=== PATIENT | male | born 1940 | race Caucasian/White ===

== ENCOUNTER 2019-01-17 19:01 | Emergency (ER) | payer BC, MEDICARE, SELFPAY ==
[2019-01-17 19:01] VITALS: BP 153/72; PULSE 43; RESP 16; TEMP 37.1; O2SAT 95; BMI 38.0
--- NOTE | 2019-01-17 20:06 | ED.RN ---
pegger dobby looms attempted two times to insert urinary catheter with no success. aware.
[2019-01-17 20:27] LABS: Absolute Lymphocyte Count 1.45 X10^3/ul (0.83-4.51); Absolute Neutrophil Count 2.2 X10^3/uL (2.0-7.7); Basophil# 0.03 X10^3/uL; Basophil% 0.6 % (0-1); Eosinophil# 0.06 X10^3/uL; Eosinophils% 1.2 % (0-5); Hematocrit 41.8 % (40-54); Hemoglobin 13.9 g/dl (13.0-16.5); Lymphocyte # 1.45 X10^3/ul (4.0); Lymphocyte % 30.1 % (19-41); Mean Corp Hgb Conc 33.3 g/gl (32-36); Mean Corpuscular Hgb 28.1 pg (27.0-32.0); Mean Corpuscular Volume 84.4 fL (80-94); Mean Platelet Vol. 11.2 fl (6.2-12.0); Monocyte# 1.01 X10^3/uL; Neutrophil # 2.24 X10^3/uL (2.7-7.7); Neutrophil % 46.7 % (47-70); Platelet Count 131 K/mm3 (150-450); RBC Distribution Width CV 14.8 % (11.6-14.6); RBC Distribution Width SD 45.7 fl (35.1-43.9); Red Blood Count 4.95 M/mm3 (4.6-6.2); White Blood Count 4.8 K/mm3 (4.4-11.0)
[2019-01-17 20:31] LABS: Anion Gap 7 (5-15); BUN 35 mg/dL (7-18); Calcium,Total 8.7 mg/dL (8.5-10.1); Chloride 106 mmol/L (98-107); Creatinine, Serum 1.94 mg/dL (0.70-1.30); EST Glomerular Filtration Rate 36 mL/min (>60); Est Glom Filt Rate - Afr Amer 43 mL/min (>60); Estimated Creatinine Clearance 32.88 ml/min; Glucose 82 mg/dL (74-106); POSITIVE COUNT NO; POSITIVE DIFFERENTIAL NO; POSITIVE MORPHOLOGY NO; Potassium 3.9 mmol/L (3.5-5.1); Sodium Level 141 mmol/L (136-145)
[2019-01-17 21:26] VITALS: PULSE 44; RESP 16; O2SAT 98
--- NOTE | 2019-01-17 21:33 | CON.PCM_ITS ---
Reason for Consult Date of Consultation: 01/17/19 Reason for Consultation: Unable to urinate and urinary retention ER unable to place a catheter History of Present Illness: The patient is a 78 year old male with a history of a prior TURP in the past by Dr. Larkin he said he last saw Dr. Larkin about a year ago and said he was doing fairly well but then noticed a decrease in his stream was about the call for an appointment and then today was not able to urinate. Says he could not urinate since 12:00 today came to the emergency room and the nurse attempted to place a catheter they were unsuccessful so I was called immediately to see the patient. On examination he is a very large left hydrocele penis is circumcised, meatus is wide open, I have tented a 16 Kyrgyz catheter immediately right met resistance at the bulbar urethra with a apparent stricture. I then used the [employer] urology kit advanced the first wire and the wire hit the stricture would go past advance a second wire with the coiled tip and this wire was able to get through I then advanced the wire further within the wire got hung up on the bladder neck. So I then first dilated the bulbar urethral stricture with followers over the wire then after this I used a second wire and then this wire was able to get through the bladder neck into the bladder I then dilated the bladder neck contracture with follow followers from 14 Kyrgyz up to 18 Kyrgyz and then over the wire was able to get a 16 Kyrgyz catheter in the bladder and immediately had a return of fairly bloody urine about a liter drained from the patient's bladder, I then irrigated the bladder out and irrigated all the clots out of the bladder and then set the catheter to gravity drainage. Past Medical History Allergies atenolol Adverse Reaction (Verified 01/17/19 19:03) hypotension HYPOTENSION Home Medications: Ambulatory Orders Medication Instructions Recorded Losartan Potassium [Cozaar] 50 mg PO DAILY 05/01/16 Simvastatin [Zocor] 10 mg PO QHS 05/01/16 Aspirin [Adult Low Dose Aspirin EC] 81 mg PO DAILY 06/13/16 Vit C/E/Zn/Coppr/Lutein/Zeaxan 1 each PO BID 06/13/16 [Preservision Areds 2 Softgel] Hydrochlorothiazide [Hctz] 12.5 mg PO DAILY 01/17/19 Ibuprofen/Diphenhydramine Cit 2 tab PO QHS 01/17/19 [Advil Pm Caplet] Multivit-Min/FA/Lycopen/Lutein 1 tab PO DAILY 01/17/19 [Centrum Silver Men Tablet] Surgical History: no surgical history, TURP Psychiatric History: No pertinent psych hx Lives: With Family Smoking Status: Former smoker Tobacco Use: Non-smoker Alcohol: None Drugs: None - *Family History Maternal History Items: No pertinent history Review of Systems Constitutional: Denies: Chills, Fever, Weight Change HEENT: Denies: Head Aches, Sinus Congestion, Sinus Drainage Cardiovascular: Denies: Chest Pain, Palpitations Respiratory: Denies: Cough, Shortness of breath at rest, Sputum production Gastrointestinal: Denies: Abdominal Pain, Nausea, Vomiting Genitourinary: Denies: Dysuria Musculoskeletal: Denies: Joint Pain, Joint Tenderness Skin: Denies: Rash, Wounds Neurological: Denies: Numbness, Tingling, Focal weakness Psychiatric: Denies: Anxiety, Depression, Homicidal Ideations, Suicidal Ideations Hematologic/ Lymphatic: Denies: Easy Bruising, Easy Bleeding Physical Exam - Physical Exam Vital Signs Temp 98.8 F 01/17/19 19:01 Pulse 86 01/17/19 21:26 Resp 16 01/17/19 21:26 BP 153/72 H 01/17/19 19:01 Pulse Ox 98 01/17/19 21:26 Intake & Output 01/15/19 01/16/19 01/17/19 23:59 23:59 23:59 Weight: 123.8 kg General: Alert, Oriented x3 HEENT: Atraumatic Oral: Moist Mucosa Neck: Supple Lungs: Normal air movement Cardiovascular: Regular rate Abdomen: Soft Rectal: Exam deferred Laboratory Tests Past 24 Hrs 01/17/19 01/17/19 20:08 20:08 WBC 4.8 RBC 4.95 Hgb 13.9 Hct 41.8 MCV 84.4 MCH 28.1 MCHC 33.3 RDW 14.8 H RDW Differential 45.7 H Plt Count 131 L MPV 11.2 Immature Gran % (Auto) 0.400 Neut % (Auto) 46.7 L Lymph % (Auto) 30.1 Dodge % (Auto) 21.0 H Eos % (Auto) 1.2 Baso % (Auto) 0.6 Absolute Neuts (auto) 2.2 Absolute Lymphs (auto) 1.45 Total Counted Not Reportable Sodium 141 Potassium 3.9 Chloride 106 Carbon Dioxide 28.0 Anion Gap 7 BUN 35 H Creatinine 1.94 H Estim Creat Clear Calc 32.88 Est GFR (MDRD) Af Amer 43 L Est GFR (MDRD) Non-Af 36 L BUN/Creatinine Ratio 18.0 Glucose 82 Calcium 8.7 Assessment/Plan 78-year-old male with a history of a TURP in the past, 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
--- NOTE | 2019-01-17 21:38 | ED.DCSUM_ITS ---
- ER Visit Summary Date of Service: 01/17/19 Chief Complaint: [Difficulty urinating] History of Present Illness: The patient is a 78 M [presents the emergency department complaint of difficulty urinating that started today around noon. Patient states that he has had similar problems in the past that required evaluation by urology and Mcpherson catheter placement by urology followed by a TURP. Patient has been unable to void since noon. He describes lower abdominal discomfort. Patient had did have some small amount of hematuria earlier this morning. He had some mild dysuria. He denies any back pain. Denies fever or vomiting.] Physical Examination: [HEENT-PERRLA, EOMI. Cranial nerves II through XII grossly intact. TMs clear. Mucous membranes moist. No adenopathy. Cardiovascular-regular rate and rhythm without murmur or ectopy Lungs-clear to auscultation, chest wall stable without crepitus or subcu emphysema Abdomen-normoactive bowel sounds, soft. Patient has some suprapubic tenderness on palpation. There is no rebound, rigidity, or perineal signs. Extremities-intact ?4, normal range of motion, normal pulses, atraumatic] Test Results: [CBC with differential obtained showed a white count of 4.8, hemoglobin 14, hematocrit 42, platelets 131. Chemistry sodium was 141, potassium 3.9, chloride 106, CO2 28, glucose 82, BUN 35, creatinine 1.94.] Emergency Department Course and Treatment: [Initially a bladder scan was obtained however was given erroneous readings of small volumes. We attempted to place a Mcpherson catheter unsuccessfully. Urology was consulted and Dr. Matthew resented to the emergency department to evaluate patient. Patient did have 2 strictures in eventually was able to have a Mcpherson catheter placed.] Treatment Plan: [I was asked to start patient on antibiotic and follow-up with urology as an outpatient.] Disposition: [Discharged home in stable condition] Impression: [Urinary retention] This note was generated with [employer] dictation software. It may contain incorrect words, spelling, and punctuation that were not noted in review of the chart prior to signing ED Disposition - Plan for ED Patient: Referrals: Kim Torres MD [Primary Care Provider] -
--- NOTE | 2019-01-17 21:38 | ED.DEP ---
ED Disposition - Plan for ED Patient: Instructions: ED Retention Urinary Male Prescriptions: Cephalexin [Keflex] 500 mg PO Q6 #40 cap Referrals: Kim Torres MD [Primary Care Provider] - Aramis Matthew MD [STAFF PHYSICIAN] - 5-7 Days
[2019-01-17 22:16] LABS: Bacteria 0 SEEN /hpf (None Seen); Mucous, Urine 0 SEEN /hpf (<or=2+); White Blood Cells 0 SEEN /hpf (0-5)
[2019-01-17 22:17] VITALS: BP 145/74; PULSE 42; RESP 18; O2SAT 98
[2019-01-17] MEDS: Cephalexin 250 MG Capsule 500 MG PO (22:17)
[2019-01-17 22:39] LABS: Color, Urine Red (Yellow); Glucose, Dipstick Normal (Normal); Ketone-Dipstick 5 mg/dl (Negative); Leukocyte Esterase-Dipstick Negative /ul (Negative); Nitrite-Dipstick Negative (Negative); Occult Blood-Urine 250 /ul (Negative); Protein-Dipstick 500 mg/dl (Negative); Urine Bilirubin Dipstick Negative (Negative); Urine Clarity Cloudy (Clear); Urine Urobilinogen Normal (Normal)
[2019-01-17 22:48] LABS: Red Blood Cells-Urine > 100 SEEN /hpf (0-5); Squamous Epithelial Cells - UA 0-5 SEEN /hpf (0-5)
== END 2019-01-17 22:18 | disposition home or self-care (01) ==
LOC: ED 20:17
PROVIDERS: Emergency Provider Emergency Medicine; Family Provider Internal Medicine; PCP Internal Medicine
DX: R33.9 Retention of urine, unspecified (principal); I10 Essential (primary) hypertension; Z90.79 Acquired absence of other genital organ(s)
CPT/HCPCS: 80048; 81001; 85025; 87086; 99284; A4216

== ENCOUNTER 2019-02-04 11:03 | Day surgery (SDC) | payer BC, SELFPAY ==
[2019-02-04] VITALS (8 sets, daily range): BP systolic 114–162; BP diastolic 62–87; PULSE 45–104; RESP 16–20; TEMP 36.3–37.3; O2SAT 93–97; BMI 37.0
--- NOTE | 2019-02-04 13:15 | BLB_PTH ---
PATIENT: SUSANNAH CALIXTO LOC: [facility] [place] U#:[id number] AGE/SX: 78/M ROOM: RE02/04/[address]: Dr. Aramis Matthew MD : 1940 BED: DIS: 02/04/2019 SPEC #: [id number] RECD: 02/07/19 10:38 STATUS: ADEEL MALINI #: [id number] RICHARDSON: 02/04/19 13:[address]: Aramis Matthew DEPT: SURGICAL PATHOLOGY RECD BY: Derek Galvin ENTERED: 02/07/19 11:01 SP TYPE: TURB OTHR DR: Dr. 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 Tissue from bladder, B. Bladder neck tissue MICROSCOPIC DIAGNOSIS A. 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 Negative for malignancy. See comment. B. Bladder neck tissue, TUR: Fragments of urothelial mucosa with underlying smooth muscle tissue and fragments of benign prostate tissue with chronic inflammation. Negative for malignancy. SJ:jimmy 02/08/19 COMMENT A. Black pigment is noted in the epithelium and underlying lamina propria. Iron stain with matched control was used in the evaluation of the specimen and negative for iron staining. Correlation with clinical, cystoscopic findings and appropriate follow up are necessary. Please make reference to previous specimens ([id number], [id number] and [id number]) prostate tissue, TUR with diagnosis of benign prostatic hyperplasia. MICROSCOPIC DESCRIPTION Slides are reviewed. GROSS DESCRIPTION A - Received in fixative is one container labeled with the patient's name and designated tissue from bladder. The specimen consists of multiple irregular fragments of james-brown soft tissue that in aggregate measure 2 x 1.5 x 0.3 cm. The entire specimen is submitted in one cassette. B - Received in fixative is one container labeled with the patient's name and designated bladder neck tissue. The specimen consists of multiple irregular fragments of james-brown soft tissue that in aggregate measure 2 x 1.5 x 0.3 cm. The entire specimen is submitted in one cassette. / JAZZ:jimmy 02/07/19 TC:3 CPT: 58958 x2, [id number]
[2019-02-04] MEDS: Cefazolin 2 GM in 0.9% Normal Saline 100 ML IV (13:42)
--- NOTE | 2019-02-04 14:14 | DCINST_ITS ---
Discharge Diet: Light diet - advance as tolerated Discharge Activity: No Restrictions Call your doctor if your incision/area has: Continuous Slow Oozing, Sudden Increased Bleeding, Increased Pain/ Swelling, Increased Redness, Foul Smelling Discharge, Swelling at the incision site Suture Line Care: Avoid Pulling/Pushing, Avoid Pinching/Bending Catheter: Mcpherson to leg bag, Mcpherson to large bag Drain: Douglas Allergies/Adverse Reactions: Allergies atenolol Adverse Reaction (Verified 01/28/19 09:58) hypotension HYPOTENSION Medications to take at Discharge Losartan Potassium [Cozaar] 50 mg PO DAILY 05/01/16 Simvastatin [Zocor] 10 mg PO QHS 05/01/16 Vit C/E/Zn/Coppr/Lutein/Zeaxan [Preservision Areds 2 Softgel] 1 each PO DAILY 06/13/16 Hydrochlorothiazide [Hctz] 12.5 mg PO DAILY 01/17/19 Multivit-Min/FA/Lycopen/Lutein [Centrum Silver Men Tablet] 1 tab PO DAILY 01/17/19 Primary Care Physician: Kim Torres MD [Primary Care Provider] - Test Results: Test results from this visit will be discussed in further detail at your follow- up appointment, if applicable. Please Follow Up With: Aramis Matthew MD When: please call to make an appointment.
--- NOTE | 2019-02-04 14:15 | PCM.OPRPT ---
Report of Operation Date of Procedure: 02/04/19 Pre-Operative Diagnosis: Gross hematuria and difficult Chaudhary placement Post-Operative Diagnosis: Same plus bladder mass bladder neck contracture Surgery/Procedure Performed:: Transurethral resection of a bladder mass large, transurethral resection of the bladder neck contracture Description of Surgical Findings:: Indication 78-year-old male who presented to the emergency room with gross hematuria and retention of urine at that point the ER had attempted to place a catheter was unsuccessful so I came in to use the dilator kit and dilated with appear to be a bladder neck contracture and place a catheter he now comes back to the operating room for a incision of the bladder neck and a cystoscopy. 78-year-old male taken back to the operating room at the smooth induction of anesthesia he was placed in dorsolithotomy position the penis testicle retrograde usual sterile fashion he had a very large symptomatic left hydrocele on examination, went into the bladder with a 21 Micronesian rigid cystourethroscope the entire length of the urethra was normal did not find any significant scar tissue along the urethra he did have opened up the urinary channel the scar tissue probably in the urethra had been dilated open and healed up nicely over the catheter I then got into the prostate and he did have a bladder neck contracture and I got inside the bladder and had a very unusual looking bladder with blackish darkish material throughout the bladder on the wall the watts of the bladder looked very thickened looked extremely unusual to me I was concerned about cancer so I did a deep resection and took tissue in the midline of the bladder posterior wall resected down to muscle and it actually is a little bit of fat all this tissue was then handed to the specimen as a permanent specimen for evaluation I did not do a complete resection of the bladder since the appearance of the this unusual tumor was throughout the bladder. I then went to the bladder neck and I used the loop and incised the bladder neck on the 5 o'clock position and at the 7 o'clock position widely after incising the bladder neck and the both sides widely look like a nice wide open channel I placed a 20 Micronesian catheter into the bladder irrigated out the catheter catheter was then put to gravity drainage the plan will be to see him back in about 2 weeks to remove the catheter and also review the pathology from the resection of the bladder the pathology from the resection of the bladder neck. I talked with the family regarding the findings. Type of Anesthesia:: General Drains: 20 fr chaudhary - Admit VTE Documentation VTE Present on Admission: No VTE Mechan Device Prophylaxis: SCD's
== END 2019-02-04 16:15 | disposition home or self-care (01) ==
LOC: SDC 11:04 → AC 11:09
PROVIDERS: Family Provider Internal Medicine; PCP Internal Medicine; Referring Provider Urology; Visit Provider Urology
PROC: 0T7D8ZZ Dilation of Urethra, Via Natural or Artificial Opening Endoscopic (ICD-10-PCS; CPT 52276; principal; 2019-02-04 13:00)
DX: D49.4 Neoplasm of unspecified behavior of bladder (principal); N32.0 Bladder-neck obstruction; N35.012 Post-traumatic membranous urethral stricture; R31.0 Gross hematuria; N40.1 Benign prostatic hyperplasia with lower urinary tract symptoms; R33.8 Other retention of urine; I10 Essential (primary) hypertension; I49.3 Ventricular premature depolarization; E78.00 Pure hypercholesterolemia, unspecified; E66.9 Obesity, unspecified; Z68.35 Body mass index [BMI] 35.0-35.9, adult; Z79.82 Long term (current) use of aspirin; Z87.891 Personal history of nicotine dependence
CPT/HCPCS: 00912; 52240; 52640; 88307; 88313; J7120; J2405

== ENCOUNTER 2019-02-11 17:22 | Emergency (ER) | payer BC, SELFPAY ==
[2019-02-04 11:21] VITALS: BMI 37.0
[2019-02-11 17:23] VITALS: BP 152/73; PULSE 57; RESP 16; TEMP 36.8; O2SAT 96; BMI 36.9
--- NOTE | 2019-02-11 18:33 | ED.RN ---
chaudhary drained about 100cc tean color urine with few mod/lg clots independently. drainage bag emptied. chaudhary catheter flushed. few more small clots. fluid flushed 200 fluid returned 300. flowing by gravity. to observe.
--- NOTE | 2019-02-11 19:11 | ED.RN ---
catheter draining clear yellow urine. handoff given at bedside. -giovani peters
--- NOTE | 2019-02-11 19:55 | ED.DCSUM_ITS ---
- ER Visit Summary Date of Service: 02/11/19 Chief Complaint: Mcpherson catheter not draining History of Present Illness: The patient is a 78 M who is a patient of Dr. Matthew. The patient had surgery about a week ago. He had a scope for a bladder mass, hematuria, and difficult Mcpherson placement. The mass was benign. Patient has had a Mcpherson catheter in place. He has been doing well until today. He has noted some clots and he has decreased flow of the catheter. He tried to irrigate but had no success. No other complaints. Physical Examination: Afebrile and vital signs unremarkable. Skin normal. No respiratory distress. Heart regular. Abdomen tender. Test Results: None performed Emergency Department Course and Treatment: Patient presents with acute urinary retention secondary to clots in the Mcpherson catheter. I discussed with Dr. Matthew. I was concerned that he would need replacement since his irrigation has not been successful. He advised to continue trying to flush and draw out urine. If need be, it is okay to replace the Mcpherson. Irrigation performed by nurses. The catheter is draining to gravity. All of the irrigation fluid has drained. His urine is clear. No symptoms or issues. Patient will be discharged to follow-up with his urologist. Treatment Plan: As above Disposition: Discharge Impression: 1. Acute urinary retention This note was generated with [employer] dictation software. It may contain incorrect words, spelling, and punctuation that were not noted in review of the chart prior to signing ED Disposition - Plan for ED Patient: Referrals: Kim Torres MD [Primary Care Provider] -
--- NOTE | 2019-02-11 19:56 | ED.DEP ---
ED Disposition - Plan for ED Patient: Instructions: ED Catheter Care Mcpherson Referrals: Aramis Matthew MD [STAFF PHYSICIAN] -
[2019-02-11 20:03] VITALS: BP 147/85; PULSE 64; RESP 18; O2SAT 96
== END 2019-02-11 20:03 | disposition home or self-care (01) ==
PROVIDERS: Emergency Provider Emergency Medicine; Family Provider Internal Medicine; PCP Internal Medicine
DX: T83.098A Other mechanical complication of other urinary catheter, initial encounter (principal); R33.8 Other retention of urine; I10 Essential (primary) hypertension; Z79.899 Other long term (current) drug therapy
CPT/HCPCS: 99282

== ENCOUNTER 2019-05-01 08:46 | Emergency (ER) | payer BC, SELFPAY ==
[2019-05-01 08:47] VITALS: BP 137/50; PULSE 87; RESP 18; TEMP 36.4; O2SAT 94; BMI 36.9
[2019-05-01 09:37] LABS: Bacteria 0 SEEN /hpf (None Seen); Mucous, Urine 0 SEEN /hpf (<or=2+); Squamous Epithelial Cells - UA 0 SEEN /hpf (0-5)
--- NOTE | 2019-05-01 09:47 | ED.VISSUMM ---
- ER Visit Summary Date of Service: 05/01/19 Chief Complaint: Hematuria History of Present Illness: The patient is a [address] rahel Torres. He reports that he was doing fine until 330 this morning when he began urinating blood and clots. Reports that this happened again at 5 AM and 7 AM. He states that he feels as though he is emptying his bladder sufficiently. He denies any abdominal pain or distention. He denies any preceding dysuria or frequency. No fever, chills, nausea, vomiting, or other constitutional symptoms. Patient does report that he had surgery by Dr. Matthew in January of this year to repair a bladder neck contracture and at that time he had hematuria as well. He is not anticoagulated. Physical Examination: Vitals: Stable. Afebrile. General: Well-nourished and well-developed. Head: Normocephalic atraumatic. Neck: Supple, no lymphadenopathy. No JVD. Nontender. Cardiovascular: Regular rate and rhythm. No murmurs. Respiratory: No respiratory distress. Clear to auscultation bilaterally. Abdominal: Soft, nontender, nondistended, normal bowel sounds. No guarding, rebound, or peritoneal signs. Back: Nontender. Extremities: Nontender, no edema. Skin: Normal color, no rash. Neurologic: Alert and oriented ?3. Cranial nerves II through XII are intact. Normal strength and sensation. Psych: Normal affect. Test Results: CBC showed platelets of 128 monocytes of 22. Chem-7 shows a glucose 115, BUN 44, creatinine 2.11. His creatinine was 1.94 in January. INR is 1.2. PTT is 29.1. UA has greater than 100 red and greater than 100 white blood cells. Emergency Department Course and Treatment: Patient urinated approximately 10 cc which was bright red and actually clotted in the tube. Bladder scan after this showed 600 cc of urine. Because of that a Mcpherson catheter was placed. This was irrigated and he now has pink-tinged urine. Treatment Plan: He will be discharged on Keflex and instructed to follow-up with Dr. Matthew in 3 days for another exam. He does understand that if his catheter stops draining that he needs to return to the emergency department for admission for irrigation. Disposition: To home in improved and stable condition. Impression: 1. Hematuria. This note was generated with [employer] dictation software. It may contain incorrect words, spelling, and punctuation that were not noted in review of the chart prior to signing ED Disposition - Plan for ED Patient: Instructions: Hematuria Prescriptions: Cephalexin [Keflex] 500 mg PO Q12 #14 cap Prescription Printed Referrals: Aramis Matthew MD [STAFF PHYSICIAN] - 3-5 Days
[2019-05-01 10:04] LABS: Absolute Lymphocyte Count 1.43 X10^3/uL (0.83-4.51); Absolute Neutrophil Count 2.4 X10^3/uL (2.0-7.7); Basophil# 0.03 X10^3/uL; Basophil% 0.6 % (0-1); Eosinophil# 0.01 X10^3/uL; Eosinophils% 0.2 % (0-5); Hematocrit 42.4 % (40-54); Hemoglobin 13.9 g/dL (13.0-16.5); Lymphocyte # 1.43 X10^3/ul (4.0); Lymphocyte % 28.8 % (19-41); Mean Corp Hgb Conc 32.8 g/dL (32-36); Mean Corpuscular Volume 85.5 fL (80-94); Mean Platelet Vol. 10.3 fl (6.2-12.0); Monocyte# 1.08 X10^3/uL; Monocyte% 21.7 % (0-10); NRBC Flagged by Analyzer 0 % (0-5); Neutrophil # 2.38 X10^3/uL (2.7-7.7); Neutrophil % 47.9 % (47-70); Platelet Count 128 K/mm3 (150-450); RBC Distribution Width CV 14.3 % (11.6-14.6); RBC Distribution Width SD 44.6 fl (35.1-43.9); Red Blood Count 4.96 M/mm3 (4.6-6.2)
[2019-05-01] MEDS: 0.9% Normal Saline 1,000 ML 1000 ML IV (10:05)
[2019-05-01] MEDS: Lidocaine Jelly 2% 20 ML Syringe (URO-JET) 20 APPLIC TOPICAL (10:10)
[2019-05-01 10:14] LABS: Red Blood Cells-Urine > 100 SEEN /hpf (0-5)
[2019-05-01 10:14] LABS: Anion Gap 4 (5-15); BUN 44 mg/dL (7-18); BUN/Creat Ratio 20.9 RATIO (10-20); Chloride 107 mmol/L (98-107); Creatinine, Serum 2.11 mg/dL (0.70-1.30); EST Glomerular Filtration Rate 32 mL/min (>60); Est Glom Filt Rate - Afr Amer 39 mL/min (>60); Estimated Creatinine Clearance 30.23 ml/min; Glucose 115 mg/dL (74-106); Sodium Level 137 mmol/L (136-145)
[2019-05-01 10:15] LABS: White Blood Cells >100 SEEN /hpf (0-5)
[2019-05-01 10:16] VITALS: BP 133/82; PULSE 69; RESP 16
[2019-05-01 10:16] LABS: International Normalized Ratio 1.2; Partial Thromboplast Time 29.1 Seconds (24.1-36.2); Prothrombin Time (Protime)PT. 14.6 SECONDS (11.7-14.9)
[2019-05-01 10:24] LABS: Color, Urine Red (Yellow); Glucose, Dipstick Normal (Normal); Ketone-Dipstick 5 mg/dl (Negative); Leukocyte Esterase-Dipstick Negative /ul (Negative); Nitrite-Dipstick Negative (Negative); Occult Blood-Urine 250 /ul (Negative); Protein-Dipstick 500 mg/dl (Negative); Urine Bilirubin Dipstick Negative (Negative); Urine Clarity Turbid (Clear); Urine Urobilinogen Normal (Normal)
[2019-05-01 11:07] VITALS: BP 141/85; PULSE 70; RESP 15
[2019-05-01] MEDS: Ceftriaxone 1 GM/50 ML BAG IV (11:07)
[2019-05-01 12:45] VITALS: BP 152/67; PULSE 70; RESP 15
== END 2019-05-01 12:46 | disposition home or self-care (01) ==
LOC: ED 09:26
PROVIDERS: Emergency Provider Emergency Medicine; Family Provider Internal Medicine; PCP Internal Medicine
DX: R31.9 Hematuria, unspecified (principal); I10 Essential (primary) hypertension; Z79.82 Long term (current) use of aspirin; Z79.899 Other long term (current) drug therapy
CPT/HCPCS: 51702; 80048; 81001; 85025; 85610; 85730; 96361; 96365; 99284; J7030; A4216

== ENCOUNTER 2019-05-06 10:26 | Day surgery (SDC) | payer BC, SELFPAY ==
[2019-05-06 11:31] VITALS: BP 133/67; PULSE 56; RESP 16; TEMP 36.3; O2SAT 97; BMI 36.1
[2019-05-06] MEDS: Cefazolin 2 GM in 0.9% Normal Saline 100 ML IV (13:33)
--- NOTE | 2019-05-06 13:37 | DCINST_ITS ---
Discharge Diet: Light diet - advance as tolerated Discharge Activity: Return to Normal Activity Call your doctor if your incision/area has: Sudden Increased Bleeding Call your doctor if you observe: Inability to urinate Allergies/Adverse Reactions: Allergies atenolol Adverse Reaction (Verified 05/01/19 08:46) hypotension HYPOTENSION Medications to take at Discharge Losartan Potassium [Cozaar] 50 mg PO DAILY 05/01/16 Simvastatin [Zocor] 10 mg PO QHS 05/01/16 Vit C/E/Zn/Coppr/Lutein/Zeaxan [Preservision Areds 2 Softgel] 1 each PO BID 06/13/16 Hydrochlorothiazide [Hctz] 12.5 mg PO DAILY 01/17/19 Multivit-Min/FA/Lycopen/Lutein [Centrum Silver Men Tablet] 1 tab PO DAILY 01/17/19 Aspirin [Aspirin, Baby] 81 mg PO DAILY@0800 05/01/19 Cephalexin [Keflex] 500 mg PO Q12 #14 cap 05/01/19 Ciprofloxacin [Cipro] 500 mg PO BID #6 tab 05/06/19 The following prescriptions were given: Ciprofloxacin [Cipro] 500 mg PO BID #6 tab Prescription Printed Primary Care Physician: Kim Torres MD [Primary Care Provider] - Test Results: Test results from this visit will be discussed in further detail at your follow- up appointment, if applicable. Please Follow Up With: Aramis Matthew MD When: in 2 weeks, please call to make an appointment.
[2019-05-06] MEDS: Lidocaine Jelly 2% 20 ML Syringe (URO-JET) 20 APPLIC (13:50)
--- NOTE | 2019-05-06 13:52 | PCM.OPRPT ---
Report of Operation Date of Procedure: 05/06/19 Pre-Operative Diagnosis: Gross hematuria history of bladder neck contracture Post-Operative Diagnosis: The same no active bleeding Surgery/Procedure Performed:: Diagnostic cystoscopy and removal of Mcpherson catheter Description of Surgical Findings:: 78-year-old male with a history of bladder contracture I saw the patient in the office with a recent catheter was placed for retention of urine and gross hematuria today we took the patient to the operating room for an evaluation of the source of the hematuria and evaluation of the prostate and bladder. Patient was taken back to the operating room after smooth induction of anesthesia he was placed in dorsolithotomy position the penis and testicles are prepped and draped in usual fashion, he had an uncircumcised normal penis went into the bladder with a 21 Kinyarwanda rigid cystourethroscope entire length urethra is normal the pendulous urethra normal bulbar urethra is normal sphincter was intact prostate channel was wide open could see the bladder neck but is also wide open right into the bladder identified the verumontanum identified the prosthetic tissue nice open channel the left and right ureter orifice were opened the trigone was normal inside the bladder some bullous edema from with a catheter was but no source of bleeding no tumors or stones seen within the bladder everything was clear no active bleeding therefore it is drained the bladder took out the scope and will leave him without a catheter if he will urinate okay to go home with out a catheter. Type of Anesthesia:: General Drains: none - Admit VTE Documentation VTE Present on Admission: No VTE Mechan Device Prophylaxis: SCD's
[2019-05-06 13:59] VITALS: BP 108/77; BP 133/67; PULSE 76; RESP 18; TEMP 36.3; O2SAT 94
[2019-05-06 14:05] VITALS: BP 112/77; BP 133/67; PULSE 72; RESP 16; O2SAT 95
[2019-05-06 14:10] VITALS: BP 124/76; BP 133/67; PULSE 68; RESP 16; O2SAT 94
[2019-05-06 14:19] VITALS: BP 120/72; BP 133/67; PULSE 67; RESP 16; TEMP 36.5; O2SAT 94
[2019-05-06 15:59] VITALS: BP 133/67
== END 2019-05-06 16:01 | disposition home or self-care (01) ==
LOC: SDC 10:27 → AC 10:31
PROVIDERS: Family Provider Internal Medicine; PCP Internal Medicine; Referring Provider Urology; Visit Provider Urology
PROC: 0TBB8ZX Excision of Bladder, Via Natural or Artificial Opening Endoscopic, Diagnostic (ICD-10-PCS; CPT 52000; principal; 2019-05-06 11:55)
DX: R31.0 Gross hematuria (principal); N32.0 Bladder-neck obstruction; N40.0 Benign prostatic hyperplasia without lower urinary tract symptoms; E78.00 Pure hypercholesterolemia, unspecified; I10 Essential (primary) hypertension; I49.3 Ventricular premature depolarization; E66.9 Obesity, unspecified; Z68.41 Body mass index [BMI] 40.0-44.9, adult; Z79.82 Long term (current) use of aspirin; Z79.899 Other long term (current) drug therapy; Z87.891 Personal history of nicotine dependence
CPT/HCPCS: 52000; J7120

== ENCOUNTER → 2019-05-12 16:05 | Outpatient (CLI) | payer BC, SELFPAY ==
[2019-05-06 11:31] VITALS: BMI 36.1
== END ==
PROVIDERS: Family Provider Internal Medicine; PCP Internal Medicine; Referring Provider Nurse Practitioner Adult Health; Visit Provider Nurse Practitioner Adult Health
DX: N39.0 Urinary tract infection, site not specified (principal)
CPT/HCPCS: 87086

== ENCOUNTER 2019-11-22 15:26 | Emergency (ER) | payer OTHER, BC, SELFPAY ==
[2019-11-22 15:27] VITALS: BP 142/75; PULSE 49; RESP 18; TEMP 37.1; O2SAT 99; BMI 36.9
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
[2019-11-22] MEDS: Diphth,Pertuss(Acell),Tet Vac 0.5 ML Vial IM (15:40)
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
[2019-11-22 16:52] VITALS: BP 155/90; PULSE 60; RESP 16; O2SAT 97
== END 2019-11-22 17:02 | disposition home or self-care (01) ==
LOC: ED 16:22
PROVIDERS: Emergency Provider Emergency Medicine; PCP Internal Medicine
DX: S20.219A Contusion of unspecified front wall of thorax, initial encounter (principal); S60.511A Abrasion of right hand, initial encounter; V89.2XXA Person injured in unspecified motor-vehicle accident, traffic, initial encounter; Y93.89 Activity, other specified; I25.10 Atherosclerotic heart disease of native coronary artery without angina pectoris; Z79.82 Long term (current) use of aspirin; Z87.891 Personal history of nicotine dependence
CPT/HCPCS: 71111; 73130; 90471; 90715; 99282

== ENCOUNTER 2019-12-11 15:50 | Observation (INO) | payer BC, SELFPAY ==
[2019-12-06 17:37] VITALS: BMI 36.9
[2019-12-11] VITALS (8 sets, daily range): BP systolic 142–165; BP diastolic 69–95; PULSE 45–79; RESP 15–18; TEMP 36.7–37.1; O2SAT 13–98; BMI 37.8; BMI 36.8
[2019-12-11 16:24] LABS: Absolute Lymphocyte Count 1.62 X10^3/uL (0.83-4.51); Absolute Neutrophil Count 2.9 X10^3/uL (2.0-7.7); Basophil# 0.04 X10^3/uL; Basophil% 0.7 % (0-1); Eosinophil# 0.03 X10^3/uL; Eosinophils% 0.5 % (0-5); Hematocrit 44.2 % (40-54); Hemoglobin 14.1 g/dL (13.0-16.5); Lymphocyte # 1.62 X10^3/ul (4.0); Mean Corp Hgb Conc 31.9 g/dL (32-36); Mean Corpuscular Hgb 27.8 pg (27.0-32.0); Mean Corpuscular Volume 87.2 fL (80-94); Mean Platelet Vol. 11.8 fl (6.2-12.0); Monocyte# 1.36 X10^3/uL; Monocyte% 22.6 % (0-10); NRBC Flagged by Analyzer 0 % (0-5); Neutrophil # 2.93 X10^3/uL (2.7-7.7); Neutrophil % 48.7 % (47-70); Platelet Count 111 K/mm3 (150-450); RBC Distribution Width CV 14.4 % (11.6-14.6); RBC Distribution Width SD 45.7 fl (35.1-43.9); Red Blood Count 5.07 M/mm3 (4.6-6.2)
[2019-12-11] MEDS: 0.9% Normal Saline 1,000 ML 1000 ML IV (16:27)
[2019-12-11 16:37] LABS: Anion Gap 6 (5-15); BUN 39 mg/dL (7-18); Calcium,Total 9.1 mg/dL (8.5-10.1); Chloride 106 mmol/L (98-107); EST Glomerular Filtration Rate 29 mL/min (>60); Est Glom Filt Rate - Afr Amer 35 mL/min (>60); Estimated Creatinine Clearance 27.28 ml/min; Glucose 118 mg/dL (74-106); Potassium 4.2 mmol/L (3.5-5.1); Sodium Level 141 mmol/L (136-145)
[2019-12-11] MEDS: Lidocaine Jelly 2% 20 ML Syringe (URO-JET) 20 APPLIC TOPICAL (18:45)
--- NOTE | 2019-12-11 18:57 | EKG12_ITS ---
Test Reason : DYSRHYTHMIA Blood Pressure : / mmHG Vent. Rate : 073 BPM Atrial Rate : 073 BPM P-R Int : 208 ms QRS Dur : 090 ms QT Int : 388 ms P-R-T Axes : 047 -48 042 degrees QTc Int : 427 ms Sinus rhythm with frequent Premature ventricular complexes Left axis deviation Septal infarct , age undetermined Inferior infarct , age undetermined Abnormal ECG Confirmed by AMY CARR MD ([id number]), dictionary editor REGINALDO ERNST ([id number]) on 12/12/2019 10:21:01 AM Referred By: ISABEL Confirmed By:AMY CARR MD
[2019-12-11 19:04] LABS: Bacteria 0 SEEN /hpf (None Seen); Mucous, Urine 0 SEEN /hpf (<or=2+); Squamous Epithelial Cells - UA 0 SEEN /hpf (0-5)
[2019-12-11 19:06] LABS: Color, Urine Red (Yellow); Glucose, Dipstick Normal (Normal); Nitrite-Dipstick Negative (Negative); Occult Blood-Urine 250 /ul (Negative); Protein-Dipstick 100 mg/dl (Negative); Urine Bilirubin Dipstick Negative (Negative); Urine Clarity Turbid (Clear); Urine Urobilinogen Normal (Normal)
[2019-12-11 19:17] LABS: Ketone-Dipstick Negative (Negative); Leukocyte Esterase-Dipstick 25 /ul (Negative)
[2019-12-11 19:33] LABS: White Blood Cells 10-25 SEEN /hpf (0-5)
[2019-12-11 19:36] LABS: Red Blood Cells-Urine > 100 SEEN /hpf (0-5)
[2019-12-11 19:58] LABS: Thyroid Stim Hormone (TSH) 0.99 uIU/mL (0.358-3.74)
[2019-12-11 20:00] LABS: International Normalized Ratio 1.1; Prothrombin Time (Protime)PT. 14.2 SECONDS (11.7-14.9)
[2019-12-11 20:01] LABS: Partial Thromboplast Time 28.6 Seconds (24.1-36.2)
--- NOTE | 2019-12-11 20:57 | CT_ITS ---
STUDY: CT ABDOMEN AND PELVIS WITHOUT CONTRAST REASON FOR EXAM: Male, 79 years old. BRIGHT RED BLEEDING AND CLOTS FROM URINE WITH LOWER ABD DISCOMFORT RADIATION DOSAGE (If Supplied By Facility): CTDIvol = ( 17.23 ) mGy, DLP = ( 1490.81 ) mGycm TECHNIQUE: Transaxial images were obtained from the dome of the diaphragm to the symphysis pubis without oral contrast, and without intravenous contrast. Sagittal and coronal images were reconstructed. Individualized dose optimization techniques were used for this CT. COMPARISON: None. FINDINGS: The visualized lung bases are unremarkable. The visualized portions of the heart are within normal limits. Normal liver. Normal gallbladder and extrahepatic biliary system. Normal spleen. Normal pancreas. Normal bilateral adrenal glands. 4 mm left ureterovesicular junction stone with mild obstructive uropathy. Significant left renal atrophy. Cannot exclude a left interpolar solid lesion. Prominent right extrarenal pelvis. Normal visualized stomach. No evidence for bowel obstruction or focal bowel wall thickening. Scattered mild diverticular disease. There is a very large left inguinal hernia extending into the left scrotum containing multiple loops of bowel and mesentery. The appendix is visualized and appears normal. Normal abdominal aorta. Normal inferior vena cava. Normal retroperitoneum. Decompressed urinary bladder with Mcpherson catheter in place. Normal visualized prostate gland. There are diffuse degenerative changes of the visualized lumbar spine. CT/Abdomen/Pelvis without Cont IMPRESSION: 4 mm left ureterovesicular junction calculus and mild associated obstructive uropathy. Heterogeneous appearance of an atrophic left kidney. Cannot exclude renal mass. Recommend follow-up renal ultrasound and/or dedicated renal mass protocol cross-sectional imaging. 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 Electronically Signed: Octavio Vidal, at 22:46 EST Tel , Service support ,
--- NOTE | 2019-12-11 22:32 | HP.PCM_ITS ---
History of Present Illness Date of Admission: 12/11/19 Chief Complaint: hematuria The patient is a 79 year old M with a past medical history as outlined which includes BPH status post TURP. He was admitted through the ED on 12/11/2019 with a complaint of hematuria. Symptoms started around 11 AM on day of admission. There was initially passage of a large clot and subsequently started having profuse hematuria. He has had this in the past before witnesses states that his prostate surgery. He denied any lightheadedness or dizziness, palpitations, chest pain, nausea vomiting or diarrhea. Systems otherwise negative. He is not on any anticoagulant and is only on low-dose aspirin. In the ED, blood pressure was 161/95 with temperature of 98.7, pulse rate of 72 respiratory of 16. He was saturating at 93% on room air. Chemistry showed sodium of 141 potassium of 4.2 and creatinine of 2.3. CBC showed hemoglobin of 14.1 and WBC of 6. He was having some PVCs. Telemetry on admission so initial troponin was ordered which was negative and EKG showed normal sinus rhythm with some PVCs. He has been adm itted to be managed for hematuria. [] Past Medical History Medical History: Medical History (Last Reviewed 12/06/19 @ 17:17 by Sruthi Renner) Chest pain R07.9 Knee pain M25.569 HTN (hypertension) I10 Allergies atenolol Adverse Reaction (Verified 12/11/19 15:51) hypotension HYPOTENSION Home Medications: Ambulatory Orders Medication Instructions Recorded Losartan Potassium [Cozaar] 50 mg PO DAILY 05/01/16 Simvastatin [Zocor] 10 mg PO QHS 05/01/16 Hydrochlorothiazide [Hctz] 12.5 mg PO DAILY 01/17/19 Aspirin [Aspirin, Baby] 81 mg PO DAILY@0800 05/01/19 Multivitamin [Daily Value] 1 ea PO DAILY 12/11/19 Vit C/E/Zn/Coppr/Lutein/Zeaxan 1 ea PO BID 12/11/19 [Preservision Areds 2 Softgel] Surgical History: TURP Psychiatric History: No pertinent psych hx Lives: Spouse/ Significant Other Smoking Status: Former smoker Tobacco Use: Non-smoker Alcohol: Occasional Drugs: None - *Family History Maternal History Items: No pertinent history Review of Systems Constitutional: Denies: Chills, Fever, Malaise, Weakness, Weight Change Eyes: Denies: Blurred vision HEENT: Denies: Head Aches, Sinus Congestion, Sinus Drainage Cardiovascular: Denies: Chest Pain, Chest Pressure, Chest Tightness, Orthopnea, Palpitations Respiratory: Denies: Cough, Shortness of Breath, Shortness of breath at rest, Shortness of breath upon exertion, Sputum production Gastrointestinal: Denies: Abdominal Pain, Nausea, Vomiting Genitourinary: Reports: Hematuria. Denies: Dysuria, Frequency, Nocturia, Retention, Urgency Musculoskeletal: Denies: Joint Pain, Joint Tenderness Skin: Denies: Rash, Wounds Neurological: Denies: Numbness, Tingling, Focal weakness Psychiatric: Denies: Anxiety, Depression, Homicidal Ideations, Suicidal Ideations Hematologic/ Lymphatic: Denies: Easy Bruising, Easy Bleeding VTE Information - Inpt Only VTE Present on Admission: No VTE Pharm Prophylaxis ordered?: Yes - Physical Exam Vitals/I&O's: Vital Signs Temp Pulse Resp BP Pulse Ox 98.7 F 72 16 161/95 H 93 12/11/19 16:30 12/11/19 22:25 12/11/19 22:25 12/11/19 22:25 12/11/19 22:25 Oxygen Delivery Method Room Air Weight: 271 lb 2.697 oz Body Mass Index (BMI) 37.8 Intake and Output for Last 24 Hours 12/09/19 12/10/19 12/11/19 23:59 23:59 23:59 Intake Total 1000 / 1000 Balance 1000 / 1000 General: Alert, Oriented x3, Cooperative, No apparent distress HEENT: Atraumatic, PERRLA, EOMI, Normocephalic Oral: Moist Mucosa Neck: Supple, No JVD, Negative Carotid Bruits Lungs: Clear to auscultation, Normal air movement, No rhonchi, No wheeze, No rales Cardiovascular: Regular rate, Regular Rhythm, Normal S1, Normal S2, No murmurs Abdomen: Bowel Sounds Present, Soft, Non Tender Extremities: No clubbing, No cyanosis, No edema, Capillary Refill Less than 3 Seconds Skin: No rashes, No breakdown Musculoskeletal: No Tenderness to Palpation of Joints or Extremities Lymphatic: No Cervical, Supraclavicular, or Inguinal Adenopathy Neurological: Cranial nerves II-XII grossly intact, Neuro grossly intact, Motor Exam 5/5 strength throughout Psych/Mental Status: Normal Affect, Appropriate, Alert and oriented to time, place, person, mood and affect Laboratory Results 12/11/19 16:10: WBC 6.0, RBC 5.07, Hgb 14.1, Hct 44.2, MCV 87.2, MCH 27.8, MCHC 31.9 L, RDW Std Deviation 45.7 H, RDW Coeff of Jeff 14.4, Plt Count 111 L, MPV 11.8, Immature Gran % (Auto) 0.500, Neut % (Auto) 48.7, Lymph % (Auto) 27.0, Gentry % (Auto) 22.6 H, Eos % (Auto) 0.5, Baso % (Auto) 0.7, Absolute Neuts (auto) 2.9, Absolute Lymphs (auto) 1.62, Nucleated RBC % 0 12/11/19 16:10: Sodium 141, Potassium 4.2, Chloride 106, Carbon Dioxide 29.0, Anion Gap 6, BUN 39 H, Creatinine 2.30 H, Estim Creat Clear Calc 27.28, Est GFR (MDRD) Af Amer 35 L, Est GFR (MDRD) Non-Af 29 L, BUN/Creatinine Ratio 17.0, Glucose 118 H, Calcium 9.1 12/11/19 16:10: Troponin I < 0.015, TSH 0.99 12/11/19 18:48: Urine Color Red, Urine Clarity Turbid, Urine pH 7.0, Ur Specific [place] 1.010, Urine Protein 100 H, Urine Glucose (UA) Normal, Urine Ketones Negative, Urine Occult Blood 250 H, Urine Nitrite Negative, Urine Bilirubin Negative, Urine Urobilinogen Normal, Ur Leukocyte Esterase 25 H, Urine RBC > 100 SEEN, Urine WBC 10-25 SEEN, Ur Squamous Epith Cells 0 SEEN, Urine Bacteria 0 SEEN, Urine Mucus 0 SEEN 12/11/19 19:35: PT 14.2, INR 1.1, APTT 28.6 Diagnostic Data Abdomen/Pelvis CT 12/11/19 20:57 IMPRESSION: 4 mm left ureterovesicular junction calculus and mild associated obstructive uropathy. Heterogeneous appearance of an atrophic left kidney. Cannot exclude renal mass. Recommend follow-up renal ultrasound and/or dedicated renal mass protocol cross-sectional imaging. 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 Electronically Signed: Octavio Marcy, at 22:46 EST Tel , Service support , Assessment/Plan All Active Problems (Last Reviewed 12/06/19 @ 17:17 by Sruthi Renner) Abrasion of right hand, initial encounter (Acute) Contusion of unspecified front wall of thorax, initial encounter (Acute) 79 y/o admitted with a complaint of hematuria 1. Hematuria * does have a history of hematuria, thought to be due to BPH. had TURP in 2016, and had cystoscopy in 05/06/19 o/a of hematuria, with findings of bladder neck contracture * urine clearing up now; had slightly blood tinged urine in bag, with clear urine in catheter. * Hb is 14 * CT abdomen/pelvis: 4mm left ureterovesical junction calculus and mild associated obstructive uropathy; heterogenous appearance of atrophic left kidney; cannot exclude renal mass. recommend follow up renal USG * renal USG from 05/02/16: simple bilateral renal cysts and debris in the urinary bladder diverticulum; left kidney had 2 renal cysts and right kidney had one renal cyst. * admit to [facility] * hydrate with IVF NS ~ 125cc/hr. Continue with continuous bladder irrigation * urology consulted- Dr Velazco will see patient on behalf of Dr Matthew. * hold aspirin * will get renal USG in light of CT abdomen/pelvis findings as above * 2. Premature ventricular complexes * Was having PVCs at time of admission. EKG done showed normal sinus rhythm with no acute ST changes and PVCs. * Initial troponin is negative. We will cycle. TSH was 0.99. Potassium is 4.2. Will check magnesium. * 3. CKD stage IV: Creatinine is 2.3 with a baseline of around 2.1. Will monitor. 4. Hypertension: Blood pressure is 161/95. On losartan and hydrochlorothiazide. Will hold HCTZ for now. 5. Hyperlipidemia: On statin DVT prophylaxis: SCDs CODE STATUS: DNR CCA * Patient and counseled extensively about different types of CODE STATUS including full code, DNR CCA and DNR CCA. Patient elects to be DNRCCA- no intubation. Total [id number] time 16 minutes. Code Visit OBSV E&M: 30171 Initial observation care L2 Procedures: 07278 Advncd Care Plan 30 Min
--- NOTE | 2019-12-11 22:59 | ED.DCSUM_ITS ---
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 He reports that this morning he passed a clot in his urine. This afternoon he states that his urine has been much more bloody and he is unsure if he is emptying his bladder. He denies any back pain. No fever, chills, dull pain, nausea, or vomiting. He reports he has had this multiple times in the past. He is not anticoagulated. Physical Examination: Vitals: Stable. Afebrile. General: Well-nourished and well-developed. Head: Normocephalic atraumatic. Neck: Supple, no lymphadenopathy. No JVD. Nontender. Cardiovascular: Regular rate and rhythm. 2 out of 6 systolic murmur. Respiratory: No respiratory distress. Clear to auscultation bilaterally. Abdominal: Soft, nontender, nondistended, normal bowel sounds. No guarding, rebound, or peritoneal signs. Back: Nontender. Extremities: Nontender, no edema. Skin: Normal color, no rash. Neurologic: Alert and oriented ?3. Cranial nerves II through XII are intact. Normal strength and sensation. Psych: Normal affect. Test Results: EKG is sinus at [address]pecific [address] changes. Troponin is negative. UA shows greater than 100 reds and 10-25 white blood cells with no bacteria. Coags are normal. TSH is 0.99. 7 shows a glucose 118, BUN of 39, creatinine 2.3. CBC shows monocytes of 23. Clinical Impression(s) from Imaging Studies Abdomen/Pelvis CT 12/11/19 20:57 IMPRESSION: 4 mm left ureterovesicular junction calculus and mild associated obstructive uropathy. Heterogeneous appearance of an atrophic left kidney. Cannot exclude renal mass. Recommend follow-up renal ultrasound and/or dedicated renal mass protocol cross-sectional imaging. 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 Electronically Signed: Octavio Vidal, at 22:46 EST Tel , Service support , Emergency Department Course and Treatment: Patient had a 24 Lao Mcpherson placed. Initially this was irrigated manually and was draining. It then clotted off and continuous irrigation was started. Intermittently the patient reports that he feels as though it is not draining and has to be manually irrigated to remove clots. Treatment Plan: The patient was discussed with Dr. Matthew. Unfortunately he will be having surgery tomorrow and cannot see the patient. He was then discussed with Dr. Velazco who has agreed to manage the hematuria. He was also discussed with Dr. Skinner. He will be admitted for further evaluation and treatment. Disposition: Improved condition. Impression: 1. Hematuria. 2. Left ureterolithiasis. This note was generated with [employer] software. It may contain incorrect words, spelling, and punctuation that were not noted in review of the chart prior to signing
[2019-12-12] VITALS (11 sets, daily range): BP systolic 129–162; BP diastolic 59–84; PULSE 60–81; RESP 16–18; TEMP 36.3–36.7; O2SAT 95
[2019-12-12 00:05] LABS: Magnesium 2.3 mg/dL (1.6-2.6)
[2019-12-12] MEDS: Atorvastatin Calcium 10 MG Tablet 5 MG PO ×2 (01:06→21:03)
[2019-12-12] MEDS: 0.9% Saline Lock 10 ML Syringe IV (01:07)
[2019-12-12] MEDS: 0.9% Normal Saline 1,000 ML 150 ML IV ×2 (01:07→06:03)
[2019-12-12 06:19] LABS: Absolute Lymphocyte Count 0.95 X10^3/uL (0.83-4.51); Absolute Neutrophil Count 2.4 X10^3/uL (2.0-7.7); Basophil# 0.03 X10^3/uL; Basophil% 0.7 % (0-1); Eosinophil# 0.02 X10^3/uL; Eosinophils% 0.4 % (0-5); Hematocrit 40.8 % (40-54); Hemoglobin 13.3 g/dL (13.0-16.5); Lymphocyte # 0.95 X10^3/ul (4.0); Mean Corp Hgb Conc 32.6 g/dL (32-36); Mean Corpuscular Hgb 28.2 pg (27.0-32.0); Mean Corpuscular Volume 86.4 fL (80-94); Mean Platelet Vol. 11.9 fl (6.2-12.0); Monocyte# 1.13 X10^3/uL; Monocyte% 24.9 % (0-10); NRBC Flagged by Analyzer 0 % (0-5); Neutrophil # 2.39 X10^3/uL (2.7-7.7); Neutrophil % 52.8 % (47-70); POSITIVE COUNT YES; Platelet Count 98 K/mm3 (150-450); RBC Distribution Width CV 14.4 % (11.6-14.6); RBC Distribution Width SD 45.5 fl (35.1-43.9); Red Blood Count 4.72 M/mm3 (4.6-6.2); White Blood Count 4.5 K/mm3 (4.4-11.0)
[2019-12-12 06:40] LABS: Anion Gap 7 (5-15); BUN 32 mg/dL (7-18); BUN/Creat Ratio 17.3 RATIO (10-20); Calcium,Total 8.4 mg/dL (8.5-10.1); Chloride 110 mmol/L (98-107); Creatinine, Serum 1.85 mg/dL (0.70-1.30); EST Glomerular Filtration Rate 38 mL/min (>60); Est Glom Filt Rate - Afr Amer 45 mL/min (>60); Estimated Creatinine Clearance 33.92 ml/min; Glucose 97 mg/dL (74-106); Potassium 3.6 mmol/L (3.5-5.1); Sodium Level 142 mmol/L (136-145)
--- NOTE | 2019-12-12 06:49 | US_ITS ---
STUDY: RENAL ULTRASOUND - COMPLETE REASON FOR EXAM: Male, 79 years old. Hematuria -- F/U CT LEFT KIDNEY APPEARANCE TECHNIQUE: Ultrasound evaluation of the kidneys was performed with real-time and static zimmerman-scale imaging. COMPARISON: Comparison is made with prior examination of May 02, [address] scan abdomen dated December 11, 2019. FINDINGS: RIGHT KIDNEY: Normal location of the right kidney, which is normal in size. The right kidney measures 12.5 cm x 5.3 cm x 5.5 cm. There is a normal cortex of the right kidney. The renal cortex measures 2.0 cm. There is a 1.9 cm x 1.97 x 1.8 cm right renal cyst. There are no right renal calculi. There is no right hydronephrosis. DISTAL RIGHT URETER: There is non-visualization of the distal right ureter. There is no demonstrated right ureterovesical junction calculus. There is no demonstrated right ureteral jet. LEFT KIDNEY: with mild renal atrophy. The left kidney measures 10.9 cm x 3.4 cm x 3.7 cm. There is a normal cortex of the left kidney. The renal cortex measures 1.2 cm. There is increased echotexture of the renal cortex suggestive of a medical renal disease. There is a 1.7 cm x 1.5 cm x 1.1 cm cyst. There are no left renal calculi. There is no left hydronephrosis. DISTAL LEFT URETER: There is non-visualization of the distal left ureter. There is no demonstrated left ureterovesical junction calculus. There is no demonstrated left ureteral jet. BLADDER: A Mcpherson catheter is seen within the urinary bladder. US/Kidney and Bladder IMPRESSION: Mild left renal atrophy. Small bilateral renal cysts. Electronically Signed: Jesus Carver, at 15:00 EST , Service support ,
[2019-12-12 07:01] LABS: Differential Indicated SCAN CRITERIA MET
[2019-12-12 07:55] LABS: Platelet Estimate MOD DEC (ADEQ)
[2019-12-12] MEDS: Multivitamins,Therapeutic Tablet 1 TABLET PO (08:23)
[2019-12-12] MEDS: Multivitamins,Ther W-Minerals Tablet 1 TABLET PO (08:23)
[2019-12-12] MEDS: Losartan Potassium 50 MG Tablet PO (09:06)
[2019-12-12] MEDS: 0.9% Normal Saline 1,000 ML 100 ML IV (09:06)
--- NOTE | 2019-12-12 09:23 | CON.PCM_ITS ---
Problem List (1) Gross hematuria Status: Acute Reason for Consult Date of Consultation: 12/12/19 Reason for Consultation: gross hematuria, on CBI History of Present Illness: The patient is a 79 year old M known to . Had TURP in July 2019. Developed gross hematuria with clots and lower abdominal pain yesterday morning to early afternoon. No fever, chills, nausea or vomiting. Has never had a stone before. Has been voiding without difficulty or issue since the TURP. Currently he is sitting in bed, tolerating PO intake. Reports all pain has resolved and he feels well. Past Medical History Medical History: Medical History (Last Reviewed 12/06/19 @ 17:17 by Sruthi Renner) Chest pain R07.9 Knee pain M25.569 HTN (hypertension) I10 Allergies atenolol Adverse Reaction (Verified 12/11/19 23:50) hypotension HYPOTENSION Home Medications: Ambulatory Orders Medication Instructions Recorded Losartan Potassium [Cozaar] 50 mg PO DAILY 05/01/16 Simvastatin [Zocor] 10 mg PO QHS 05/01/16 Hydrochlorothiazide [Hctz] 12.5 mg PO DAILY 01/17/19 Aspirin [Aspirin, Baby] 81 mg PO DAILY@0800 05/01/19 Multivitamin [Daily Value] 1 ea PO DAILY 12/11/19 Vit C/E/Zn/Coppr/Lutein/Zeaxan 1 ea PO BID 12/11/19 [Preservision Areds 2 Softgel] Surgical History: TURP Psychiatric History: No pertinent psych hx Lives: Spouse/ Significant Other Smoking Status: Former smoker Tobacco Use: Non-smoker Alcohol: Occasional Drugs: None - *Family History Maternal History Items: No pertinent history Review of Systems Constitutional: Denies: Chills, Fever Eyes: Denies: Vision Change HEENT: Denies: Visual Changes Cardiovascular: Denies: Chest Pain Respiratory: Denies: Shortness of Breath Gastrointestinal: Denies: Abdominal Pain, Nausea, Vomiting Genitourinary: Reports: Hematuria. Denies: Dysuria, Frequency, Incontinence, Urgency Musculoskeletal: Denies: Muscle pain Skin: Denies: Wounds Neurological: Denies: Change in Speech Patient Problems: Active and Suspected Problems (Last Reviewed 12/06/19 @ 17:17 by Sruthi Renner) Gross hematuria (Acute) - Physical Exam Vitals/I&O's: Vital Signs Temp Pulse Resp BP Pulse Ox 97.5 F L 72 16 162/77 H 95 12/12/19 09:05 12/12/19 09:05 12/12/19 09:05 12/12/19 09:05 12/12/19 09:05 Oxygen Delivery Method Room Air Weight: 119.8 kg Body Mass Index (BMI) 36.8 Intake and Output for Last 24 Hours 12/10/19 12/11/19 12/12/19 23:59 23:59 23:59 Intake Total 999 1447.5 / 1447.5 Output Total 1999 Balance 999 / 999 -552.5 / -552.5 General: Alert, Oriented x3, Cooperative, No apparent distress HEENT: Atraumatic, Normocephalic Oral: Moist Mucosa Neck: Supple, Trachea Midline Lungs: Normal air movement Abdomen: Soft, Non Tender, Non-Distended Extremities: No Calf Tenderness Skin: No rashes Musculoskeletal: No Muscle Wasting Neurological: Cranial nerves II-XII grossly intact Psych/Mental Status: Normal Affect Laboratory Results 12/11/19 16:10: WBC 6.0, RBC 5.07, Hgb 14.1, Hct 44.2, MCV 87.2, MCH 27.8, MCHC 31.9 L, RDW Std Deviation 45.7 H, RDW Coeff of Jeff 14.4, Plt Count 111 L, MPV 11.8, Immature Gran % (Auto) 0.500, Neut % (Auto) 48.7, Lymph % (Auto) 27.0, [place] % (Auto) 22.6 H, Eos % (Auto) 0.5, Baso % (Auto) 0.7, Absolute Neuts (auto) 2.9, Absolute Lymphs (auto) 1.62, Nucleated RBC % 0 12/11/19 16:10: Sodium 141, Potassium 4.2, Chloride 106, Carbon Dioxide 29.0, Anion Gap 6, BUN 39 H, Creatinine 2.30 H, Estim Creat Clear Calc 27.28, Est GFR (MDRD) Af Amer 35 L, Est GFR (MDRD) Non-Af 29 L, BUN/Creatinine Ratio 17.0, Glucose 118 H, Calcium 9.1 12/11/19 16:10: Troponin I < 0.015, TSH 0.99 12/11/19 16:10: Magnesium 2.3 12/11/19 18:48: Urine Color Red, Urine Clarity Turbid, Urine pH 7.0, Ur Specific [place] 1.010, Urine Protein 100 H, Urine Glucose (UA) Normal, Urine Ketones Negative, Urine Occult Blood 250 H, Urine Nitrite Negative, Urine Bilirubin Nega tive, Urine Urobilinogen Normal, Ur Leukocyte Esterase 25 H, Urine RBC > 100 SEEN, Urine WBC 10-25 SEEN, Ur Squamous Epith Cells 0 SEEN, Urine Bacteria 0 SEEN, Urine Mucus 0 SEEN 12/11/19 19:35: PT 14.2, INR 1.1, APTT 28.6 12/12/19 00:30: Troponin I < 0.015 12/12/19 03:09: Troponin I < 0.015 12/12/19 05:44: WBC 4.5, RBC 4.72, Hgb 13.3, Hct 40.8, MCV 86.4, MCH 28.2, MCHC 32.6, RDW Std Deviation 45.5 H, RDW Coeff of Jeff 14.4, Plt Count 98 L, MPV 11.9, Immature Gran % (Auto) 0.200, Neut % (Auto) 52.8, Lymph % (Auto) 21.0, [place] % (Auto) 24.9 H, Eos % (Auto) 0.4, Baso % (Auto) 0.7, Absolute Neuts (auto) 2.4, Absolute Lymphs (auto) 0.95, Nucleated RBC % 0, Platelet Estimate MOD DEC 12/12/19 05:44: Sodium 142, Potassium 3.6, Chloride 110 H, Carbon Dioxide 25.0, Anion Gap 7, BUN 32 H, Creatinine 1.85 H, Estim Creat Clear Calc 33.92, Est GFR (MDRD) Af Amer 45 L, Est GFR (MDRD) Non-Af 38 L, BUN/Creatinine Ratio 17.3, Glucose 97, Calcium 8.4 L 12/12/19 05:44: Troponin I < 0.015 Current Medications Acetaminophen (Tylenol) 650 mg PO Q6H PRN PRN PRN Reason: Pain Score 1-10/Temp > 100.7 F Atorvastatin Calcium (Lipitor) 5 mg PO QHS [facility] Last Admin: 12/12/19 01:06 Dose: 5 mg Documented by: Glucagon () 1 mg IM .X1 PRN PRN Reason: Hypoglycemia Dextrose (Dextrose 10%-Water) 250 mls @ 999 mls/hr IV .Q16M PRN; Protocol PRN Reason: HYPOGLYCEMIA Sodium Chloride () 1,000 mls @ 100 mls/hr IV .Q10H [facility] Last Admin: 12/12/19 09:06 Dose: 100 mls/hr Documented by: Losartan Potassium (Cozaar) 50 mg PO DAILY [facility] Last Admin: 12/12/19 09:06 Dose: 50 mg Documented by: Multivitamins (Multivitamin) 1 tablet PO DAILY@0800 [facility] Last Admin: 12/12/19 08:23 Dose: 1 tablet Documented by: Multivitamins/Minerals (Multivitamin With Minerals (Bkc)) 1 tablet PO DAILY@0800 [facility] Last Admin: 12/12/19 08:23 Dose: 1 tablet Documented by: Nitroglycerin (Nitrostat) 0.4 mg SUBLINGUAL Q5M PRN PRN Reason: CARDIAC/CHEST PAIN Ondansetron HCl (Zofran) 4 mg IV Q8H PRN PRN PRN Reason: NAUSEA/VOMITING Sodium Chloride () 10 - 40 ml IV UD PRN PRN Reason: SALINE FLUSH Last Admin: 12/12/19 01:07 Dose: 10 ml Documented by: Tamsulosin HCl (Flomax) 0.4 mg PO NOW [facility] Assessment/Plan All Active Problems (Last Reviewed 12/06/19 @ 17:17 by Sruthi Renner) Gross hematuria (Acute) Abrasion of right hand, initial encounter (Acute) Contusion of unspecified front wall of thorax, initial encounter (Acute) gross hematuria with left distal ureteral calculus start flomax stop CBI recheck urine at noon, if chaudhary clear, will remove and check PVR trial of stone passage
[2019-12-12] MEDS: Tamsulosin HCl 0.4 MG Capsule PO (10:39)
--- NOTE | 2019-12-12 15:10 | NURSING ---
This RN called Dr. Velazco's office with update on pt still voiding blood with clots, first post void residual 435 and second post void residual 395. This RN left a message with the secretary specialist stating the second post void residual. This RN talked with Dr. Velazco concerning first PVR. Dr. Velazco states she only has a few pt's to see and then will be in to see this pt.
--- NOTE | 2019-12-12 15:18 | PCM.PROGNOTE ---
Patient Problems: Active and Suspected Problems (Last Reviewed 12/06/19 @ 17:17 by Sruthi Renner) Gross hematuria (Acute) Subjective: Patient seen and examined. Hematuria resolved. Mcpherson discontinued and patient now having difficulty urinating. Urology following. - Physical Exam Vitals/I&O's: Vital Signs Temp Pulse Resp BP Pulse Ox 98.1 F 77 16 143/84 H 95 12/12/19 15:05 12/12/19 15:05 12/12/19 15:05 12/12/19 15:05 12/12/19 15:05 Oxygen Delivery Method Room Air Weight: 264 lb 1.82 oz Body Mass Index (BMI) 36.8 Intake and Output for Last 24 Hours 12/10/19 12/11/19 12/12/19 23:59 23:59 23:59 Intake Total 1000 / 1000 1647.5 / 1647.5 Output Total 3325 / 3325 Balance 1000 / 1000 -1677.5 / -1677.5 General: Alert, Oriented x3, Cooperative HEENT: Atraumatic, PERRLA, EOMI, Normocephalic Neck: Supple, No JVD, Negative Carotid Bruits Lungs: Clear to auscultation, Normal air movement Cardiovascular: Regular rate, Regular Rhythm, Normal S1, Normal S2, No murmurs Abdomen: Bowel Sounds Present, Soft, Non Tender, Non-Distended Extremities: No clubbing, No cyanosis, No edema, Capillary Refill Less than 3 Seconds Skin: No rashes, No breakdown Musculoskeletal: No Tenderness to Palpation of Joints or Extremities Neurological: Cranial nerves II-XII grossly intact, Neuro grossly intact Psych/Mental Status: Normal Affect, Appropriate Laboratory Results 12/11/19 16:10: WBC 6.0, RBC 5.07, Hgb 14.1, Hct 44.2, MCV 87.2, MCH 27.8, MCHC 31.9 L, RDW Std Deviation 45.7 H, RDW Coeff of Jeff 14.4, Plt Count 111 L, MPV 11.8, Immature Gran % (Auto) 0.500, Neut % (Auto) 48.7, Lymph % (Auto) 27.0, Stewart % (Auto) 22.6 H, Eos % (Auto) 0.5, Baso % (Auto) 0.7, Absolute Neuts (auto) 2.9, Absolute Lymphs (auto) 1.62, Nucleated RBC % 0 12/11/19 16:10: Sodium 141, Potassium 4.2, Chloride 106, Carbon Dioxide 29.0, Anion Gap 6, BUN 39 H, Creatinine 2.30 H, Estim Creat Clear Calc 27.28, Est GFR (MDRD) Af Amer 35 L, Est GFR (MDRD) Non-Af 29 L, BUN/Creatinine Ratio 17.0, Glucose 118 H, Calcium 9.1 12/11/19 16:10: Troponin I < 0.015, TSH 0.99 12/11/19 16:10: Magnesium 2.3 12/11/19 18:48: Urine Color Red, Urine Clarity Turbid, Urine pH 7.0, Ur Specific [place] 1.010, Urine Protein 100 H, Urine Glucose (UA) Normal, Urine Ketones Negative, Urine Occult Blood 250 H, Urine Nitrite Negative, Urine Bilirubin Negative, Urine Urobilinogen Normal, Ur Leukocyte Esterase 25 H, Urine RBC > 100 SEEN, Urine WBC 10-25 SEEN, Ur Squamous Epith Cells 0 SEEN, Urine Bacteria 0 SEEN, Urine Mucus 0 SEEN 12/11/19 19:35: PT 14.2, INR 1.1, APTT 28.6 12/12/19 00:30: Troponin I < 0.015 12/12/19 03:09: Troponin I < 0.015 12/12/19 05:44: WBC 4.5, RBC 4.72, Hgb 13.3, Hct 40.8, MCV 86.4, MCH 28.2, MCHC 32.6, RDW Std Deviation 45.5 H, RDW Coeff of Ejff 14.4, Plt Count 98 L, MPV 11.9, Immature Gran % (Auto) 0.200, Neut % (Auto) 52.8, Lymph % (Auto) 21.0, Stewart % (Auto) 24.9 H, Eos % (Auto) 0.4, Baso % (Auto) 0.7, Absolute Neuts (auto) 2.4, Absolute Lymphs (auto) 0.95, Nucleated RBC % 0, Platelet Estimate MOD DEC 12/12/19 05:44: Sodium 142, Potassium 3.6, Chloride 110 H, Carbon Dioxide 25.0, Anion Gap 7, BUN 32 H, Creatinine 1.85 H, Estim Creat Clear Calc 33.92, Est GFR (MDRD) Af Amer 45 L, Est GFR (MDRD) Non-Af 38 L, BUN/Creatinine Ratio 17.3, Glucose 97, Calcium 8.4 L 12/12/19 05:44: Troponin I < 0.015 Current Medications Acetaminophen (Tylenol) 650 mg PO Q6H PRN PRN PRN Reason: Pain Score 1-10/Temp > 100.7 F Atorvastatin Calcium (Lipitor) 5 mg PO QHS [facility] Last Admin: 12/12/19 01:06 Dose: 5 mg Documented by: Glucagon () 1 mg IM .X1 PRN PRN Reason: Hypoglycemia Dextrose (Dextrose 10%-Water) 250 mls @ 999 mls/hr IV .Q16M PRN; Protocol PRN Reason: HYPOGLYCEMIA Sodium Chloride () 1,000 mls @ 100 mls/hr IV .Q10H [facility] Last Admin: 12/12/19 09:06 Dose: 100 mls/hr Documented by: Losartan Potassium (Cozaar) 50 mg PO DAILY [facility] Last Admin: 12/12/19 09:06 Dose: 50 mg Documented by: Multivitamins (Multivitamin) 1 tablet PO DAILY@0800 [facility] Last Admin: 12/12/19 08:23 Dose: 1 tablet Documented by: Multivitamins/Minerals (Healthy Eyes (Bkc)) 1 capsule PO DAILY [facility] Nitroglycerin (Nitrostat) 0.4 mg SUBLINGUAL Q5M PRN PRN Reason: CARDIAC/CHEST PAIN Ondansetron HCl (Zofran) 4 mg IV Q8H PRN PRN PRN Reason: NAUSEA/VOMITING Sodium Chloride () 10 - 40 ml IV UD PRN PRN Reason: SALINE FLUSH Last Admin: 12/12/19 01:07 Dose: 10 ml Documented by: Tamsulosin HCl (Flomax) 0.4 mg PO DAILY [facility] Last Admin: 12/12/19 10:39 Dose: 0.4 mg Documented by: Medical Necessity - Tobacco Use Smoking Status: Former smoker Tobacco Use: Non-smoker Assessment/Plan All Active Problems (Last Reviewed 12/06/19 @ 17:17 by Sruthi Renner) Gross hematuria (Acute) Abrasion of right hand, initial encounter (Acute) Contusion of unspecified front wall of thorax, initial encounter (Acute) 1. Gross hematuria with left distal ureteral calculus, urinary retention-urology, Dr. Velazco following. Initially on continuous bladder irrigation which was discontinued. Urine now clear however patient having difficulty voiding. Placed on Flomax. CT of abdomen and pelvis on admission showed 4 mm left ureterovesical junction calculus and mild associated obstructive uropathy. Renal ultrasound demonstrates mild left renal atrophy, small bilateral renal cyst. 2. PVCs-asymptomatic. 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 Abbasi, F cardiology. 3. Chronic kidney disease stage IV-at baseline, trend BMP. Renal ultrasound as noted above. 4. Hypertension-stable, continue losartan. HCTZ on hold. 5. Hyperlipidemia-continue statin. DVT prophylaxis-[facility] This patient was seen by YASMEEN Robin under the supervision of Dr. Mosqueda.
[2019-12-12] MEDS: Metoprolol Tartrate 25 MG Tablet 12.5 MG PO ×2 (15:42→21:03)
[2019-12-12] MEDS: 0.9% Normal Saline 1,000 ML 60 ML IV (18:34)
[2019-12-12] MEDS: Lidocaine Jelly 2% 20 ML Syringe (URO-JET) 20 APPLIC TOPICAL (18:35)
[2019-12-13 03:00] VITALS: BP 157/77; PULSE 67; PULSE 72; RESP 16; TEMP 36.6; O2SAT 96
[2019-12-13 05:21] LABS: Anion Gap 6 (5-15); BUN 27 mg/dL (7-18); BUN/Creat Ratio 16.2 RATIO (10-20); Calcium,Total 8.6 mg/dL (8.5-10.1); Chloride 111 mmol/L (98-107); Creatinine, Serum 1.67 mg/dL (0.70-1.30); EST Glomerular Filtration Rate 42 mL/min (>60); Est Glom Filt Rate - Afr Amer 51 mL/min (>60); Estimated Creatinine Clearance 37.57 ml/min; Glucose 98 mg/dL (74-106); Potassium 3.8 mmol/L (3.5-5.1); Sodium Level 143 mmol/L (136-145)
[2019-12-13] MEDS: 0.9% Normal Saline 1,000 ML 60 ML IV (05:41)
[2019-12-13 06:48] VITALS: PULSE 72
--- NOTE | 2019-12-13 07:47 | PCM.PN.GU ---
Physical Exam Subjective: Feeling well. Mcpherson draining. No new issues overnight. - Physical Exam Vital Signs Temp 97.9 F 12/13/19 03:00 Pulse 72 12/13/19 06:48 Resp 16 12/13/19 03:00 BP 157/77 H 12/13/19 03:00 Pulse Ox 96 12/13/19 03:00 Intake & Output 12/11/19 12/12/19 12/13/19 23:59 23:59 23:59 Intake Total 1000 / 1000 3627.5 / 3627.5 891 / 891 Output Total 6325 / 6325 1000 / 1000 Balance 1000 / 1000 -2697.5 / -2697.5 -109 / -109 Weight: 119.8 kg Intake: Oral 1220 / 1220 240 / 240 Intake, IV Amount 1000 / 1000 2407.5 / 2407.5 651 / 651 0.9% Normal Saline 1,000 ML @ 935 / 935 100 mls/hr IV .Q10H [facility] Rx#: [id number] 0.9% Normal Saline 1,000 ML @ 1000 / 1000 1000 mls/hr IV .Q1H [facility] Rx#: [id number] 0.9% Normal Saline 1,000 ML @ 1147.5 / 1147.5 150 mls/hr IV .Q6H40M [facility] Rx#: [id number] 0.9% Normal Saline 1,000 ML @ 325 / 325 651 / 651 60 mls/hr IV .[id number] [facility] Rx#: [id number] Output: Urine 6325 / 6325 1000 / 1000 Other: Intake, Continuous Bladder 2,400 Irrigation 3-way Urethral 3,000 Output, Continuous Bladder 2,400 Irrigation 3-way Urethral 2,200 2,200 General: Alert, Oriented x3 HEENT: Atraumatic, Normocephalic Oral: Moist Mucosa Neck: Supple, Trachea Midline Lungs: Normal air movement Cardiovascular: Regular rate Abdomen: Soft, Non Tender Rectal: Exam deferred Skin: No rashes Musculoskeletal: No Muscle Wasting Neurological: Cranial nerves II-XII grossly intact Comment: renal ultrasound shows cysts, no hydronephrosis Laboratory Tests Past 24 Hrs 12/12/19 12/13/19 05:44 04:58 Platelet Estimate MOD DEC Sodium 143 Potassium 3.8 Chloride 111 H Carbon Dioxide 26.0 Anion Gap 6 BUN 27 H Creatinine 1.67 H Estim Creat Clear Calc 37.57 Est GFR (MDRD) Af Amer 51 L Est GFR (MDRD) Non-Af 42 L BUN/Creatinine Ratio 16.2 Glucose 98 Calcium 8.6 Medical Necessity - Tobacco Use Smoking Status: Former smoker Tobacco Use: Non-smoker Assessment/Plan All Active Problems (Last Reviewed 12/06/19 @ 17:17 by Sruthi Renner) Gross hematuria (Acute) Abrasion of right hand, initial encounter (Acute) Contusion of unspecified front wall of thorax, initial encounter (Acute) home with jet and follow up with in the office. Available, call if needed.
[2019-12-13] MEDS: Multivitamins,Therapeutic Tablet 1 TABLET PO (08:18)
[2019-12-13 09:16] VITALS: BP 127/72; PULSE 70; RESP 16; TEMP 36.6; O2SAT 95
[2019-12-13 09:20] VITALS: BP 127/77; PULSE 70
[2019-12-13] MEDS: Tamsulosin HCl 0.4 MG Capsule PO (09:20)
[2019-12-13] MEDS: Multivitamin (Healthy Eyes) Capsule 1 CAP PO (09:20)
[2019-12-13] MEDS: Metoprolol Tartrate 25 MG Tablet 12.5 MG PO (09:20)
[2019-12-13] MEDS: Losartan Potassium 50 MG Tablet PO (09:20)
[2019-12-13 10:30] VITALS: PULSE 66
--- NOTE | 2019-12-13 11:06 | PCM.DC ---
- Discharge Diagnoses Current Active Problems: Current Active and Chronic Problems (Last Reviewed 12/06/19 @ 17:17 by Sruthi Renner) Gross hematuria (Acute) You will use the following diet at home:: No restrictions Discharge Activity: Return to Normal Activity Call your doctor if you observe: Shortness of breath, Dizziness, Fainting spells, Chest pain Allergies/Adverse Reactions: Allergies atenolol Adverse Reaction (Verified 12/11/19 23:50) hypotension HYPOTENSION Medications to take at Discharge Losartan Potassium [Cozaar] 50 mg PO DAILY 05/01/16 Simvastatin [Zocor] 10 mg PO QHS 05/01/16 Aspirin [Aspirin, Baby] 81 mg PO DAILY@0800 05/01/19 Multivitamin [Daily Value] 1 ea PO DAILY 12/11/19 Vit C/E/Zn/Coppr/Lutein/Zeaxan [Preservision Areds 2 Softgel] 1 ea PO BID 12/11/19 Amoxicillin/Potassium Clav [Augmentin 500-125 Tablet] 1 ea PO BID #14 tab 12/13/19 Metoprolol Tartrate [Lopressor (beta neetu)] 25 mg PO BID #60 tab 12/13/19 Tamsulosin HCl [Flomax] 0.4 mg PO BID #60 cap 12/13/19 The following prescriptions were given: Amoxicillin/Potassium Clav [Augmentin 500-125 Tablet] 1 ea PO BID #14 tab Transmission Status: Sent to [facility]/pharmacy #[id number] Tamsulosin HCl [Flomax] 0.4 mg PO BID #60 cap Transmission Status: Pending to [facility]/pharmacy #[id number] Metoprolol Tartrate [Lopressor (beta neetu)] 25 mg PO BID #60 tab Transmission Status: Pending to [facility]/pharmacy #[id number] Primary Care Physician: Kim Torres MD [Primary Care Provider] - Please follow up with your Primary Care Physician in: 1 Week Test Results: Test results from this visit will be discussed in further detail at your follow-up appointment, if applicable. Please Follow Up With: Aramis Matthew MD When: 1 Week Proposed Discharge Date: 12/13/19
--- NOTE | 2019-12-13 11:16 | PCM.DC.SUM ---
Discharge Date and Diagnosis Date of Admission: 12/11/19 Date of Discharge: 12/13/19 - Primary Discharge Diagnosis Active and Suspected Problems (Last Reviewed 12/06/19 @ 17:17 by Sruthi Renner) 1. Gross hematuria with left distal ureteral calculus, urinary retention 2. Enterococcus UTI 3. PVCs-asymptomatic. 4. Chronic kidney disease stage IV 5. Hypertension 6. Hyperlipidemia Hospital Course and Treatment Imaging Results: Diagnostic Data Abdomen/Pelvis CT 12/11/19 20:57 IMPRESSION: 4 mm left ureterovesicular junction calculus and mild associated obstructive uropathy. Heterogeneous appearance of an atrophic left kidney. Cannot exclude renal mass. Recommend follow-up renal ultrasound and/or dedicated renal mass protocol cross-sectional imaging. 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 Electronically Signed: Octavio Vidal, at 22:46 EST Tel , Service support , Renal Ultrasound 12/12/19 06:49 IMPRESSION: Mild left renal atrophy. Small bilateral renal cysts. Electronically Signed: Jesus Carver, at 15:00 EST , Service support , Dr. Velazco- urology Operations: None Procedures: None Summary of Care Provided: The patient is a 79 year old M admitted 12/11/2019 due to hematuria. 1. Gross hematuria with left distal ureteral calculus, urinary retention-urology, Dr. Velazco consulted during admission. Initially on continuous bladder irrigation which was discontinued. Catheter removed and patient continued to have urinary retention. Catheter replaced by urology. Placed on Flomax 0.[address] of abdomen and pelvis on admission showed 4 mm left ureterovesical junction calculus and mild associated obstructive uropathy. Renal ultrasound demonstrates mild left renal atrophy, small bilateral renal cyst. Patient to be discharged with Mcpherson catheter and follow-up with urology. 2. Enterococcus UTI-renally dosed Augmentin 500 mg twice daily for 7 days. 3. PVCs-asymptomatic. 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 Abbasi, F cardiology. Troponin negative. Home HCTZ regimen discontinued and initiated on metoprolol 25 mg twice daily. 4. Chronic kidney disease stage IV-at baseline, trend BMP. Renal ultrasound as noted above. 5. Hypertension-stable, continue losartan. HCTZ discontinued. 6. Hyperlipidemia-continue statin. General: Alert, Oriented x3, Cooperative HEENT: Atraumatic, PERRLA, EOMI, Normocephalic Neck: Supple, No JVD, Negative Carotid Bruits Lungs: Clear to auscultation, Normal air movement Cardiovascular: Regular rate, Regular Rhythm, Normal S1, Normal S2, No murmurs Abdomen: Bowel Sounds Present, Soft, Non Tender, Non-Distended Extremities: No clubbing, No cyanosis, No edema, Capillary Refill Less than 3 Seconds Skin: No rashes, No breakdown Musculoskeletal: No Tenderness to Palpation of Joints or Extremities Neurological: Cranial nerves II-XII grossly intact, Neuro grossly intact Psych/Mental Status: Normal Affect, Appropriate Patient seen and examined prior to discharge. Physical assessment as noted above. Patient is stable for discharge with follow up recommendations as noted above. This patient was seen by YASMEEN Robin under the supervision of Dr. Mosqueda. - Physical Exam Vitals/I&O's: Vital Signs Temp Pulse Resp BP Pulse Ox 97.9 F 66 16 127/77 H 95 12/13/19 09:16 12/13/19 10:30 12/13/19 09:16 12/13/19 09:20 12/13/19 09:16 Oxygen Delivery Method Room Air Weight: 264 lb 1.82 oz Body Mass Index (BMI) 36.8 Intake and Output for Last 24 Hours 12/11/19 12/12/19 12/13/19 23:59 23:59 23:59 Intake Total 1000 / 1000 3627.5 / 3627.5 891 / 891 Output Total 6325 / 6325 1000 / 1000 Balance 1000 / 1000 -2697.5 / -2697.5 -109 / -109 Microbiology Past 72 Hours 12/11/19 18:48 Urine Catheter - Catheter Urine Culture - Final Enterococcus faecalis Laboratory Results 12/13/19 04:58: Sodium 143, Potassium 3.8, Chloride 111 H, Carbon Dioxide 26.0, Anion Gap 6, BUN 27 H, Creatinine 1.67 H, Estim Creat Clear Calc 37.57, Est GFR (MDRD) Af Amer 51 L, Est GFR (MDRD) Non-Af 42 L, BUN/Creatinine Ratio 16.2, Glucose 98, Calcium 8.6 Current Medications Acetaminophen (Tylenol) 650 mg PO Q6H PRN PRN PRN Reason: Pain Score 1-10/Temp > 100.7 F Atorvastatin Calcium (Lipitor) 5 mg PO QHS [facility] Last Admin: 12/12/19 21:03 Dose: 5 mg Documented by: Glucagon () 1 mg IM .X1 PRN PRN Reason: Hypoglycemia Dextrose (Dextrose 10%-Water) 250 mls @ 999 mls/hr IV .Q16M PRN; Protocol PRN Reason: HYPOGLYCEMIA Sodium Chloride () 1,000 mls @ 60 mls/hr IV .[id number] [facility] Last Admin: 12/13/19 05:41 Dose: 60 mls/hr Documented by: Losartan Potassium (Cozaar) 50 mg PO DAILY [facility] Last Admin: 12/13/19 09:20 Dose: 50 mg Documented by: Metoprolol Tartrate (Lopressor (Beta Juan J)) 12.5 mg PO BID [facility] Last Admin: 12/13/19 09:20 Dose: 12.5 mg Documented by: Multivitamins (Multivitamin) 1 tablet PO DAILY@0800 [facility] Last Admin: 12/13/19 08:18 Dose: 1 tablet Documented by: Multivitamins/Minerals (Healthy Eyes (Bkc)) 1 capsule PO DAILY [facility] Last Admin: 12/13/19 09:20 Dose: 1 capsule Documented by: Nitroglycerin (Nitrostat) 0.4 mg SUBLINGUAL Q5M PRN PRN Reason: CARDIAC/CHEST PAIN Ondansetron HCl (Zofran) 4 mg IV Q8H PRN PRN PRN Reason: NAUSEA/VOMITING Sodium Chloride () 10 - 40 ml IV UD PRN PRN Reason: SALINE FLUSH Last Admin: 12/12/19 01:07 Dose: 10 ml Documented by: Tamsulosin HCl (Flomax) 0.4 mg PO DAILY [facility] Last Admin: 12/13/19 09:20 Dose: 0.4 mg Documented by: Discharge Diet: No Restrictions Discharge Activity: Return to Normal Activity Call your doctor if you observe: Shortness of breath, Dizziness, Fainting spells, Chest pain Home Medications: Medications to take at Discharge Losartan Potassium [Cozaar] 50 mg PO DAILY 05/01/16 Simvastatin [Zocor] 10 mg PO QHS 05/01/16 Aspirin [Aspirin, Baby] 81 mg PO DAILY@0800 05/01/19 Multivitamin [Daily Value] 1 ea PO DAILY 12/11/19 Vit C/E/Zn/Coppr/Lutein/Zeaxan [Preservision Areds 2 Softgel] 1 ea PO BID 12/11/19 Amoxicillin/Potassium Clav [Augmentin 500-125 Tablet] 1 ea PO BID #14 tab 12/13/19 Metoprolol Tartrate [Lopressor (beta juan j)] 25 mg PO BID #60 tab 12/13/19 Tamsulosin HCl [Flomax] 0.4 mg PO BID #60 cap 12/13/19 Following Prescrptions Were Given to Patient: Amoxicillin/Potassium Clav [Augmentin 500-125 Tablet] 1 ea PO BID #14 tab Transmission Status: [id number] Tamsulosin HCl [Flomax] 0.4 mg PO BID #60 cap Transmission Status: [id number] Metoprolol Tartrate [Lopressor (beta juan j)] 25 mg PO BID #60 tab Transmission Status: [id number] Primary Care Physician: Kim Torres MD [Primary Care Provider] - Please follow up with your Primary Care Physician in: 1 Week Please Follow Up With: Aramis Matthew MD When: 1 Week Disposition: Home Minutes spent on discharge:: 35 Patient Condition:: Stable Medical Necessity - Tobacco Use Smoking Status: Former smoker Tobacco Use: Non-smoker Meaningful Use Info Meaningful Use Diagnoses (Choose all that apply): None applicable
--- NOTE | 2019-12-13 12:05 | PHA.DC.MC ---
Pharmacy Service has performed discharge medication reconciliation and counseling for this patient. The patient's discharge medication list was reviewed for discrepancies and discrepancies were resolved. Home Medications Losartan Potassium [Cozaar] 50 mg PO DAILY 05/01/16 Simvastatin [Zocor] 10 mg PO QHS 05/01/16 Aspirin [Aspirin, Baby] 81 mg PO DAILY@0800 05/01/19 Multivitamin [Daily Value] 1 ea PO DAILY 12/11/19 Vit C/E/Zn/Coppr/Lutein/Zeaxan [Preservision Areds 2 Softgel] 1 ea PO BID 12/11/19 Amoxicillin/Potassium Clav [Augmentin 500-125 Tablet] 1 ea PO BID #14 tab 12/13/19 Metoprolol Tartrate [Lopressor (beta neetu)] 25 mg PO BID #60 tab 12/13/19 Tamsulosin HCl [Flomax] 0.4 mg PO BID #60 cap 12/13/19 The patient was counseled on the following discharge medications and changes in medications for homegoing were reviewed. The Reason for Use, instructions for use, and potential side effects were reviewed for all new medications. 1. AUGMENTIN 2. FLOMAX 3. LOPRESSOR The patient's questions regarding all of their medications were answered. The patient was able to verbally demonstrate an understanding of their discharge medications.
== END 2019-12-13 11:12 | disposition home or self-care (01) ==
LOC: ED 22:36 → PCU 22:52
PROVIDERS: Nurse Practitioner Family; Admitting Provider Student in an Organized Health Care Education/Training Program; Emergency Provider Emergency Medicine; PCP Internal Medicine; Visit Provider Internal Medicine
DX: N20.1 Calculus of ureter (principal); K40.90 Unilateral inguinal hernia, without obstruction or gangrene, not specified as recurrent; R31.0 Gross hematuria; N40.1 Benign prostatic hyperplasia with lower urinary tract symptoms; R33.8 Other retention of urine; I49.3 Ventricular premature depolarization; E78.5 Hyperlipidemia, unspecified; I12.9 Hypertensive chronic kidney disease with stage 1 through stage 4 chronic kidney disease, or unspecified chronic kidney disease; N18.4 Chronic kidney disease, stage 4 (severe); R94.31 Abnormal electrocardiogram [ECG] [EKG]; N39.0 Urinary tract infection, site not specified; B95.2 Enterococcus as the cause of diseases classified elsewhere; Z79.899 Other long term (current) drug therapy; Z79.82 Long term (current) use of aspirin; Z87.891 Personal history of nicotine dependence
CPT/HCPCS: 36415; 51702; 74176; 76770; 80048; 81001; 83735; 84443; 84484; 85025; 85610; 85730; 87086; 87088; 87186; 93005; 96360; 96361; 97161; 97165; 99218; 99285; J7030; A4216; G0378

== ENCOUNTER → 2019-12-30 12:49 | Outpatient (CLI) | payer BC, SELFPAY ==
[2019-12-11 23:34] VITALS: BMI 36.8
--- NOTE | 2019-12-30 12:57 | ECHOD_ITS ---
Reason For Study: Syncope Procedure This was a 2D Doppler, Color Flow transthoracic echocardiogram. Exam performed in department. Left Ventricle Normal size and thickness. The estimated ejection fraction is 65 %. Stage 2 diastolic dysfunction. No regional wall motion abnormalities noted. Right Ventricle Normal size and thickness. Normal systolic function. Atria Normal left atrium. Normal right atrium. Normal atrial septum. Mitral Valve The mitral valve is structurally normal. No prolapse or stenosis seen. Tricuspid Valve Normal tricuspid valve. Trivial tricuspid valve insufficiency. Right ventricular systolic pressure estimated to be 35 mmHg. Aortic Valve Normal aortic valve. Trisinus/trileaflet aortic valve. Trivial aortic valve insufficiency. Pulmonic Valve Normal pulmonic valve. Trivial pulmonic valve insufficiency. Great Vessels Normal aortic root. Normal arch. Normal inferior vena cava. Inferior vena cava collapse with sniff. Pericardium/Pleural No pericardial effusion. MMode/2D Measurements & Calculations LVIDd: 4.8 cm IVSd: 1.4 cm Ao root diam: 3.3 cm LVIDs: 3.2 cm LVPWd: 1.3 cm RVDd: 3.5 cm FS: 33.9 % LAV(MOD-bp): 58.7 ml LA A4 area: 17.0 cm2 LA dimension(2D): 4.9 cm LAV(MOD-bp) Indexed: 25.0 ml/m2 LAV(MOD-sp2): 73.9 ml LAV(MOD-sp4): 41.4 ml RA A4 area: 15.0 cm2 Doppler Measurements & Calculations MV E max dmitriy: 68.2 cm/sec Lat Peak E' Dmitriy: 10.3 cm/sec Med Peak E' Dmitriy: 7.1 cm/sec MV A max dmitriy: 105.7 cm/sec E/E' lat: 6.6 E/E' med: 9.6 MV E/A: 0.65 Ao V2 max: 185.7 cm/sec LV V1 max: 121.8 cm/sec PA V2 max: 97.1 cm/sec Ao max P.8 mmHg LV V1 max P.9 mmHg Ao V2 mean: 125.9 cm/sec Ao mean P.1 mmHg Ao V2 VTI: 40.7 cm TR max dmitriy: 274.7 cm/sec TR max P.2 mmHg Interpretation Summary The estimated ejection fraction is 65 %. Stage 2 diastolic dysfunction. Trivial tricuspid valve insufficiency. Right ventricular systolic pressure estimated to be 35 mmHg. Trivial aortic valve insufficiency. Compared to echo report dated 01/07/2006, no appreciable changes noted. Aortic root has decreased from 3.8 to 3.3 cm on today's study. Ordering Physician: Chiara Donovan Referring Physician: Kim Torres Performed By: Liseth Arevalo, RDCS, RVT
--- NOTE | 2019-12-30 13:41 | CT_ITS ---
STUDY: CT ABDOMEN AND PELVIS WITHOUT CONTRAST REASON FOR EXAM: Male, 79 years old. GROSS HEMATURIA. TURP X 3 RADIATION DOSAGE (If Supplied By Facility): CTDIvol = ( 27.89 ) mGy, DLP = ( 2346.17 ) mGycm TECHNIQUE: Transaxial images were obtained from the dome of the diaphragm to the symphysis pubis without oral contrast, and without intravenous contrast. Sagittal and coronal images were reconstructed. Individualized dose optimization techniques were used for this CT. COMPARISON: Comparison is made with prior study of December 11, 2019. FINDINGS: Stable mild increased markings at the lung bases suggestive of mild scarring. The visualized portions of the heart are within normal limits. Normal liver. Normal gallbladder and extrahepatic biliary system. Normal spleen. Normal pancreas. Normal bilateral adrenal glands. Normal right kidney. There is severe cortical atrophy of the left kidney, consistent with chronic medical renal disease. A 4 mm calculus is seen at the distal left ureterovesical junction. This is unchanged. Normal visualized stomach. Normal small intestine. Normal colon. The appendix is visualized and appears normal. There is scattered atherosclerotic calcification and tortuosity of the abdominal aorta , without a demonstrated aneurysm. Normal inferior vena cava. Normal retroperitoneum. Distention of the urinary bladder. Minimal diffuse bladder wall thickening. A defect is seen within the prostate in keeping with the patient''s history of prior TURP. There is a small umbilical hernia containing fat. Moderate-sized left inguinal hernia containing a large bowel. There is no evidence of bowel obstruction. There are diffuse degenerative changes of the visualized lumbar spine. CT/Abdomen/Pelvis without Cont IMPRESSION: Left renal atrophy. 4 mm left ureteral vesicular calculus. This is unchanged. Stable left inguinal hernia containing bowel. Electronically Signed: Jesus Carver, at 15:00 EDT , Service support ,
== END ==
PROVIDERS: PCP Internal Medicine; Referring Provider Clinical Nurse Specialist; Visit Provider Clinical Nurse Specialist
DX: R55 Syncope and collapse (principal); R31.0 Gross hematuria
CPT/HCPCS: 74176; 93306

== ENCOUNTER 2020-01-04 09:10 | Day surgery (SDC) | payer BC, SELFPAY ==
[2019-12-11 23:34] VITALS: BMI 36.8
[2020-01-04 09:34] VITALS: BP 171/94; PULSE 58; RESP 20; TEMP 36.6; O2SAT 97; BMI 36.4
[2020-01-04] MEDS: Lactated Ringers 1,000 ML 100 ML IV (09:55)
--- NOTE | 2020-01-04 11:20 | CALC_PTH ---
PATIENT: SUSANNAH CALIXTO LOC: [facility] [place] U#:[id number] AGE/SX: 79/M ROOM: RE01/04/[address]: Dr. Aramis Matthew MD : 1940 BED: DIS: 01/04/2020 SPEC #: [id number] RECD: 01/04/20 12:41 STATUS: ADEEL REFrankie #: [id number] RICHARDSON: 01/04/20 11:[address]: Aramis Matthew DEPT: SURGICAL PATHOLOGY RECD BY: Nando Quan ENTERED: 01/04/20 13:04 SP TYPE: Calculi OTHR DR: Dr. Kim Torres MD Tissues: CALCULI Procedures: Surgery Specimen Level I HEADER OPERATION: Cysto, ureteroscopy, retro, laser, stent PRE-OP DIAGNOSIS: Left ureteral calculi TISSUE SUBMITTED: Left ureteral calculi GROSS DIAGNOSIS Left ureteral calculus, removal: Fragments of unremarkable calculi (gross diagnosis only). AM:jimmy 01/05/20 COMMENT The calculus is submitted in its entirety for chemical stone analysis. The results from this study will be reported separately. GROSS DESCRIPTION Received is one container labeled with the patient's name and designated left ureteral calculi. The specimen consists of two irregular fragments of dark james calculus measuring in aggregate 0.5 x 0.5 x 0.2 cm. The calculus is submitted in its entirety for chemical stone analysis. / AM:jimmy 01/04/20 CPT: 65719
[2020-01-04] MEDS: Cefazolin 2 GM in 0.9% Normal Saline 100 ML IV (11:34)
--- NOTE | 2020-01-04 11:34 | DCINST_ITS ---
Discharge Diet: Light diet - advance as tolerated Discharge Activity: Return to Normal Activity Call your doctor if you observe: Fever of 101 or Higher Allergies/Adverse Reactions: Allergies atenolol Adverse Reaction (Verified 01/04/20 09:29) hypotension HYPOTENSION tamsulosin [From Flomax] Adverse Reaction (Verified 01/04/20 09:29) PT UNSURE OF REACTION passed out Medications to take at Discharge Losartan Potassium [Cozaar] 50 mg PO DAILY 05/01/16 Simvastatin [Zocor] 10 mg PO QHS 05/01/16 Aspirin [Aspirin, Baby] 81 mg PO DAILY@0800 05/01/19 Multivitamin [Daily Value] 1 ea PO DAILY 12/11/19 Vit C/E/Zn/Coppr/Lutein/Zeaxan [Preservision Areds 2 Softgel] 1 ea PO BID 12/11/19 Metoprolol Tartrate [Lopressor (beta neetu)] 25 mg PO BID #60 tab 12/13/19 Primary Care Physician: Kim Torres MD [Primary Care Provider] - Test Results: Test results from this visit will be discussed in further detail at your follow- up appointment, if applicable. Please Follow Up With: Aramis Matthew MD When: please call to make an appointment.
--- NOTE | 2020-01-04 12:14 | OP.PCM_ITS ---
Report of Operation Date of Procedure: 01/04/20 Pre-Operative Diagnosis: Distal left ureteral calculi with obstruction Post-Operative Diagnosis: Same Surgery/Procedure Performed:: Cystoscopy, left retrograde pyelogram interpretation fluoroscopic images, balloon dilation of left ureter, ureteroscopy and basket of stone and stent placement Description of Surgical Findings:: Patient presented to the hospital for treatment of a calculus 4 millimeters in size in the distal ureter. We discussed how the procedure is done what to expect afterwards he probably will need a stent. We discussed the discomfort that the stent would cause, burning with urination, frequency, urgency, pain in the kidney, blood in the urine. We also discussed the risk of the procedure including bleeding and infection and the risk of anesthesia. We discussed the very rare risk of injury or scar tissue development in the ureter after this procedure. We also discussed the possibility that the stone would not be able to be treated completely and he may need multiple procedures. After discussion with the patient in the preoperative area also I saw the patient in the office discussing the same outcomes the patient signed the consent form, and all the patient's questions were answered. The patient was taken back to the operating room after smooth induction of general anesthesia and the patient was placed supine on the table. We then repositioned the patient in dorsolithotomy position with the legs in stirrups. We made sure all his pressure points were padded. The patient had SCDs on for DVT prophylaxis and was loaded with IV antibiotics prior to the procedure. Imaging was reviewed. I went into the bladder with a 21 [place] rigid cystoscopy ureteroscopy after gentle dilation of the urethra. The urethra findings were normal . The prostate findings were well resected open prostate . Inside the bladder the trigone was inspected left and right watts of the bladder and posterior and dome of the bladder was inspected and the main findings in the bladder was moderate trabeculation . I then cannulated the left ureter and used a wire to go up to the ureter then over the wire I performed balloon dilation of the distal ureter with a ureteral balloon dilator, the balloon dilator size was 15 mm . I then left the wire in place and over wire I went up with a SlimLine rigid ureteroscope. I was able to reach the stone successfully basketed the stone. After successful Basketing stone and its fragments then I worked my way out of the ureter and over the wire I then loaded up a stent and advanced a stent up into the left kidney. A retrograde pyelogram was then performed looking at the contrast images to assist in placement of the stent next and confirmed the location of the kidney and the ureter I then pulled on the wire and the stent coiled in the kidney and bladder in good position. I then drained the bladder with the cystoscope the patient's anesthetic was reversed he will be given pain medicine antibiotics and instructions to call the office for an appointment to remove the stent. Patient's anesthetic is being reversed and is taken back to the PACU in stable condition. Type of Anesthesia:: General Drains: stent left side - Admit VTE Documentation VTE Present on Admission: No VTE Mechan Device Prophylaxis: SCD's
[2020-01-04 12:23] VITALS: BP 143/70; BP 171/94; PULSE 69; RESP 16; TEMP 37.4; O2SAT 96
[2020-01-04 12:30] VITALS: BP 139/81; BP 171/94; PULSE 67; RESP 16; O2SAT 95
[2020-01-04] MEDS: Ketorolac 15 MG/ML Vial IV (12:32)
[2020-01-04 12:45] VITALS: BP 116/92; BP 171/94; PULSE 63; RESP 16; O2SAT 93
[2020-01-04 13:00] VITALS: BP 137/81; BP 171/94; PULSE 60; RESP 16; TEMP 37.5; O2SAT 93
[2020-01-04 15:57] VITALS: BP 171/94
== END 2020-01-04 16:04 | disposition home or self-care (01) ==
LOC: SDC 09:11 → AC 09:11
PROVIDERS: PCP Internal Medicine; Visit Provider Urology
PROC: 0TJ98ZZ Inspection of Ureter, Via Natural or Artificial Opening Endoscopic (ICD-10-PCS; CPT 52352; principal; 2020-01-04 11:10)
DX: N20.1 Calculus of ureter (principal); N32.0 Bladder-neck obstruction; N30.01 Acute cystitis with hematuria; I12.9 Hypertensive chronic kidney disease with stage 1 through stage 4 chronic kidney disease, or unspecified chronic kidney disease; N18.3 Chronic kidney disease, stage 3 (moderate); I25.2 Old myocardial infarction; I49.3 Ventricular premature depolarization; E78.00 Pure hypercholesterolemia, unspecified; N40.1 Benign prostatic hyperplasia with lower urinary tract symptoms; R33.8 Other retention of urine; E66.9 Obesity, unspecified; Z68.36 Body mass index [BMI] 36.0-36.9, adult; Z79.82 Long term (current) use of aspirin; Z87.891 Personal history of nicotine dependence
CPT/HCPCS: 52332; 76000; 82360; 88300; J7120; C1726; C1769; C2617; J2405

== ENCOUNTER → 2020-06-04 11:50 | Outpatient (CLI) | payer MEDICARE, OTHER, SELFPAY | PROVIDERS: PCP Internal Medicine; Referring Provider Urology; Visit Provider Urology | DX: R30.0 Dysuria (principal) | CPT/HCPCS: 87077; 87086; 87088 ==

== ENCOUNTER → 2020-08-06 10:06 | Outpatient (CLI) | payer MEDICARE, OTHER, SELFPAY ==
--- NOTE | 2020-08-06 10:09 | CT_ITS ---
STUDY: CT ABDOMEN AND PELVIS WITHOUT CONTRAST REASON FOR EXAM: Male, 80 years old. PELVIC PAIN, HEMATURIA, HX [place], TURP X 3 RADIATION DOSAGE (If Supplied By Facility): CTDIvol = ( 16.97 ) mGy, DLP = ( 1078.42 ) mGycm TECHNIQUE: Transaxial images were obtained from the dome of the diaphragm to the symphysis pubis without oral contrast, and without intravenous contrast. Sagittal and coronal images were reconstructed. Individualized dose optimization techniques were used for this CT. COMPARISON: Comparison is made with prior study dated 12/30/2019. FINDINGS: Stable minimal increased markings at the lung bases suggestive of scarring. The visualized portions of the heart are within normal limits. Normal liver. Normal gallbladder and extrahepatic biliary system. Normal spleen. Normal pancreas. Normal bilateral adrenal glands. Normal right kidney. There is severe cortical atrophy of the left kidney, consistent with chronic medical renal disease. Normal visualized stomach. Normal small intestine. Normal colon. The appendix is visualized and appears normal. There is diffuse atherosclerotic calcification of the abdominal aorta, without a demonstrated aneurysm. Normal inferior vena cava. Normal retroperitoneum. There is diffuse irregular thickening of the bladder wall. There is a 1.4 cm x 1.8 cm polypoid mass along the anterior wall of the bladder. A similar appearing polypoid lesion is seen along the posterior aspect of the right lateral wall. There is also evidence of a 2.8 cm x 2.7 cm polypoid lesion along the right superior bladder wall. There is a small umbilical hernia containing fat. There are degenerative changes of the visualized lumbar spine. CT/Abdomen/Pelvis without Cont IMPRESSION: Diffuse bladder wall thickening with at least 3 polypoid lesions in the bladder as described. Electronically Signed: Jesus Carver, at 11:19 EDT , Service support ,
== END ==
PROVIDERS: PCP Internal Medicine; Referring Provider Urology; Visit Provider Urology
DX: N20.0 Calculus of kidney (principal); N32.9 Bladder disorder, unspecified
CPT/HCPCS: 74176

== ENCOUNTER 2020-08-22 12:21 | Day surgery (SDC) | payer MEDICARE, OTHER, SELFPAY ==
--- NOTE | 2020-08-17 09:06 | EKG12_ITS ---
Test Reason : PRE OP Blood Pressure : / mmHG Vent. Rate : 063 BPM Atrial Rate : 063 BPM P-R Int : 218 ms QRS Dur : 098 ms QT Int : 384 ms P-R-T Axes : 039 -51 038 degrees QTc Int : 392 ms Sinus rhythm with 1st degree A-V block with frequent Premature ventricular complexes Left axis deviation Low voltage QRS Abnormal ECG Confirmed by TANIA GARCIA, LEILA ([id number]), greeting card editor REGINALDO ERNST ([id number]) on 08/20/2020 2:32:07 PM Referred By: Aramis Matthew Confirmed By:ANAHI MARIN MD
[2020-08-17 10:30] LABS: Hematocrit 44.2 % (40-54); Hemoglobin 13.6 g/dL (13.0-16.5); Mean Corp Hgb Conc 30.8 g/dL (32-36); Mean Corpuscular Hgb 26.5 pg (27.0-32.0); Mean Platelet Vol. 12.1 fl (6.2-12.0); Platelet Count 116 K/mm3 (150-450); RBC Distribution Width CV 14.6 % (11.6-14.6); RBC Distribution Width SD 46.2 fl (35.1-43.9); Red Blood Count 5.14 M/mm3 (4.6-6.2)
[2020-08-17 11:11] LABS: Anion Gap 4 (5-15); BUN 46 mg/dL (7-18); BUN/Creat Ratio 18.9 RATIO (10-20); Calcium,Total 9.2 mg/dL (8.5-10.1); Chloride 109 mmol/L (98-107); Creatinine, Serum 2.44 mg/dL (0.70-1.30); EST Glomerular Filtration Rate 27 mL/min (>60); Est Glom Filt Rate - Afr Amer 33 mL/min (>60); Glucose 139 mg/dL (74-106); Potassium 4.6 mmol/L (3.5-5.1); Sodium Level 140 mmol/L (136-145)
[2020-08-22] VITALS (17 sets, daily range): BP systolic 86–146; BP diastolic 48–91; PULSE 60–90; RESP 16–18; TEMP 36.1–36.9; O2SAT 94–100; BMI 35.9
--- NOTE | 2020-08-22 | IMM_PTH ---
PATIENT: SUSANNAH CALIXTO LOC: [facility] – [place] U#:[id number] AGE/SX: 80/M ROOM: RE08/22/[address]: Dr. Aramis Matthew MD : 1940 BED: DIS: 08/23/2020 SPEC #: [id number] RECD: 08/24/20 14:05 STATUS: ADEEL REQ #: [id number] RICHARDSON: 08/22/20 00:[address]: Aramis Matthew DEPT: IMMUNOHISTOCHEMISTRY RECD BY: Radha Martinez ENTERED: 08/24/20 14:06 SP TYPE: IMMUNO OTHR DR: Dr. Kim Torres MD Tissues: Prostate, NOS Procedures: CK20 (add) CK5-6 (add) CK7 (add) CK8 (add) Pankeratin (initial) P40 (add) CD44 (add) PSAP (add) PHYSICIAN & INSTITUTION [place] [address] SPECIMEN INFORMATION: Tissue Source: Bladder, TUR Clinical Info: Bladder tumor, gross hematuria Specimen Number: [id number] #6 CPT code: 10781, 14613 x7 METHODOLOGY: Deparaffinized sections of prefer/formalin-fixed tissue or PAP/DQ stained slides are incubated with monoclonal/polyclonal antibodies/oligonucleotide probes. Localization is made via biotin free immunoperoxidase method. Appropriate controls are performed and reacted as expected. Results on target cell population are indicated in the following table: RESULTS: ANTIBODY / CLONE RESULT Block 6 AE1-3 (AE1/AE3/PCK26) positive CK7 (OV-TL12/30) positive CK8 (17ojfbS11) positive CK20 (KS20.8) positive PSAP (PASE/4LJ) negative anti-CD44 (SP37) negative CK5-6 (D5 & 1684) positive, focal P40 (BC28) positive, focal These tests were developed and their performance characteristics determined by [facility]. They may not have been cleared or approved by the U.S. Food and Drug Administration. The FDA has determined that such clearance or approval is not necessary. The above immunohistochemical/dualISH markers are ordered and reviewed by the Pathologist. 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 SJ:jimmy 08/27/20
--- NOTE | 2020-08-22 08:11 | PCM.HP.STD ---
Problem List (1) Bladder tumor Status: Acute History of Present Illness Date of Admission: 08/22/20 Chief Complaint: Large multiple bladder masses The patient is a 80 year old male who I saw in the office for gross hematuria CAT scan was done demonstrated multiple large bladder masses thickened bladder very concerning for bladder cancer possibly invasive bladder cancer as well and taken back to surgery to proceed with a transurethral resection of bladder tumors of note he has no symptoms but he was positive for the Covid test as this was done routinely before surgery but given his situation and I can await for the potential for advanced bladder cancer so organ to proceed with a transurethral resection of the prostate under general anesthesia patient was aware of the situation. Past Medical History Medical History: Medical History (Last Reviewed 12/06/19 @ 17:17 by Sruthi Renner) Chest pain R07.9 Knee pain M25.569 HTN (hypertension) I10 Allergies atenolol Adverse Reaction (Verified 08/14/20 11:30) hypotension HYPOTENSION tamsulosin [From Flomax] Adverse Reaction (Verified 08/14/20 11:30) PT UNSURE OF REACTION passed out Home Medications: Ambulatory Orders Medication Instructions Recorded Losartan Potassium [Cozaar] 50 mg PO DAILY 05/01/16 Simvastatin [Zocor] 10 mg PO QHS 05/01/16 Aspirin [Aspirin, Baby] 81 mg PO DAILY@0800 05/01/19 Multivitamin [Daily Value] 1 ea PO DAILY 12/11/19 Vit C/E/Zn/Coppr/Lutein/Zeaxan 1 ea PO BID 12/11/19 [Preservision Areds 2 Softgel] Metoprolol Tartrate [Lopressor 25 mg PO BID #60 tab 12/13/19 (beta neetu)] Naproxen Sodium [Aleve] 220 mg PO PRN PRN 08/14/20 Surgical History: TURP Psychiatric History: No pertinent psych hx Smoking Status: Former smoker Tobacco Use: Non-smoker - *Family History Maternal History Items: No pertinent history Review of Systems Constitutional: Denies: Chills, Fever, Weight Change HEENT: Denies: Head Aches, Sinus Congestion, Sinus Drainage Cardiovascular: Denies: Chest Pain, Palpitations Respiratory: Denies: Cough, Shortness of breath at rest, Sputum production Gastrointestinal: Denies: Abdominal Pain, Nausea, Vomiting Genitourinary: Denies: Dysuria Musculoskeletal: Denies: Joint Pain, Joint Tenderness Skin: Denies: Rash, Wounds Neurological: Denies: Numbness, Tingling, Focal weakness Psychiatric: Denies: Anxiety, Depression, Homicidal Ideations, Suicidal Ideations Hematologic/ Lymphatic: Denies: Easy Bruising, Easy Bleeding VTE Information - Inpt Only VTE Present on Admission: No - Physical Exam Vitals/I&O's: Body Mass Index (BMI) 36.4 General: Alert, Oriented x3, Cooperative HEENT: Atraumatic, PERRLA, EOMI, Normocephalic Neck: Supple, No JVD, Negative Carotid Bruits Lungs: Clear to auscultation, Normal air movement Cardiovascular: Regular rate, No murmurs Abdomen: Bowel Sounds Present, Soft, Non Tender Extremities: No edema, Capillary Refill Less than 3 Seconds Skin: No rashes, No breakdown Musculoskeletal: No Tenderness to Palpation of Joints or Extremities Neurological: Cranial nerves II-XII grossly intact Psych/Mental Status: Normal Affect, Appropriate Microbiology Past 72 Hours 08/21/20 10:00 Interface Orders SARS-CoV-2 Antigen (Rapid) - Final SARS-CoV-2 (COVID 19) Assessment/Plan All Active Problems (Last Reviewed 12/06/19 @ 17:17 by Sruthi Renner) Bladder tumor (Acute) Gross hematuria (Acute) Abrasion of right hand, initial encounter (Acute) Contusion of unspecified front wall of thorax, initial encounter (Acute) Plan to proceed with transurethral resection of large multiple bladder masses.
--- NOTE | 2020-08-22 08:15 | DCINST_ITS ---
Discharge Diet: Light diet - advance as tolerated Discharge Activity: May Not Drive, May not drive while taking narcotic pain medications. Suture Line Care: Avoid Pulling/Pushing, Avoid Pinching/Bending Allergies/Adverse Reactions: Allergies atenolol Adverse Reaction (Verified 08/14/20 11:30) hypotension HYPOTENSION tamsulosin [From Flomax] Adverse Reaction (Verified 08/14/20 11:30) PT UNSURE OF REACTION passed out Medications to take at Discharge Losartan Potassium [Cozaar] 50 mg PO DAILY 05/01/16 Simvastatin [Zocor] 10 mg PO QHS 05/01/16 Aspirin [Aspirin, Baby] 81 mg PO DAILY@0800 05/01/19 Multivitamin [Daily Value] 1 ea PO DAILY 12/11/19 Vit C/E/Zn/Coppr/Lutein/Zeaxan [Preservision Areds 2 Softgel] 1 ea PO BID 12/11/19 Metoprolol Tartrate [Lopressor (beta neetu)] 25 mg PO BID #60 tab 12/13/19 Naproxen Sodium [Aleve] 220 mg PO PRN PRN 08/14/20 Ciprofloxacin [Cipro] 500 mg PO BID #14 tab 08/22/20 Hydrocodone Bitart/Apap 5-325 [Eads 5MG-325MG] 1 tab PO Q6H PRN PRN 7 Days #14 tab 08/22/20 The following prescriptions were given: Ciprofloxacin [Cipro] 500 mg PO BID #14 tab Transmission Status: Pending to [facility]/pharmacy #[id number] Hydrocodone Bitart/Apap 5-325 [Eads 5MG-325MG] 1 tab PO Q6H PRN PRN 7 Days #14 tab PRN Reason: Pain Transmission Status: Received by [facility]/pharmacy #[id number] Primary Care Physician: Kim Torres MD [Primary Care Provider] - Test Results: Test results from this visit will be discussed in further detail at your follow- up appointment, if applicable. Please Follow Up With: Aramis Matthew MD When: in 2 weeks, please call to make an appointment.
[2020-08-22] MEDS: Lactated Ringers 1,000 ML 100 ML IV ×2 (14:00→16:15)
--- NOTE | 2020-08-22 15:05 | PROS_PTH ---
PATIENT: SUSANNAH CALIXTO [place] [facility] [place][id number] AGE/SX: 80/M ROOM: RE08/22/[address]: Dr. Aramis Matthew MD : 1940 BED: DIS: 08/23/2020 SPEC #: [id number] RECD: 08/23/20 07:54 STATUS: ADEEL NAYAK #: [id number] RICHARDSON: 08/22/20 15:[address]: Aramis Matthew DEPT: SURGICAL PATHOLOGY RECD BY: Digna Banegas ENTERED: 08/23/20 09:34 SP TYPE: TURP JANNETH DR: Dr. Kim Torres MD Tissues: Prostate, NOS Procedures: Surgery Specimen Level V HEADER OPERATION: Cysto, transurethral resection bladder, [employer] PRE-OP DIAGNOSIS: Bladder tumor; gross hematuria TISSUE SUBMITTED: Prostate pieces MICROSCOPIC DIAGNOSIS Bladder tumor, transurethral resection bladder/prostate: Invasive urothelial carcinoma. See cancer summary in the comment section. SJ:rg 08/24/20 COMMENT BLADDER CANCER (TUR) SUMMARY Procedure: Transurethral resection of bladder (TURBT)/prostate Tumor site: Not specified Histologic type: Urothelial carcinoma, invasive with focal squamous differentiation and with focal necrosis. Histologic grade: High grade (3/3) Percent of squamous differentiation: ~10% Tumor configuration: Invasive Muscularis propria presence: Muscularis propria (detrusor muscle) is present and involved by tumor. Lymphvascular invasion: Not identified Tumor extension: Tumor invades the muscularis propria. Additional pathologic findings: Chronic inflammation.. The above summary is in compliance with [employer] (CAP) Cancer Protocols Checklist and [place] Joint Committee on Cancer (AJCC), Staging Manual, 8th Ed. Immunohistochemistry ([id number]) supports the above diagnosis. The entire specimen appears to consists of bladder tissue, prostatic glandular tissue is not present in the submitted specimen. Clinical correlation and appropriate follow up are necessary. Case has been reviewed in consultation with Dr. Luther who concurs with the above diagnosis. IDC:AM MICROSCOPIC DESCRIPTION Slides are reviewed. GROSS DESCRIPTION Received is one container labeled with the patient's name and designated prostate tissue. The specimen consists of multiple irregular fragments of pink-james, rubbery, soft tissue that in aggregate weigh 7.7 gm and measure in aggregate 5 x 4 x 1.5 cm. The entire specimen is submitted in seven cassettes. / JAZZ:jimmy 08/23/20 TC:0 CPT: 59253
[2020-08-22] MEDS: Cefazolin 2 GM in 0.9% Normal Saline 100 ML IV (16:23)
--- NOTE | 2020-08-22 17:05 | OP.PCM_ITS ---
Problem List (1) Bladder tumor Status: Acute Report of Operation Date of Procedure: 08/22/20 Pre-Operative Diagnosis: Large multiple bladder masses Post-Operative Diagnosis: Same Surgery/Procedure Performed:: Cystoscopy and transurethral resection of large bladder masses Description of Surgical Findings:: 80-year-old male was taken back to the operating room is a history of being new to me about a year ago when I took him to surgery for gross bleeding at that time he had a lot of inflammation in his bladder and I was suspicious for bladder cancer so we did a resection and inflammation so I thought at that point that he does have a infection is causing inflammation his bladder there is no cancer follow-up CAT scan after that demonstrated, nice smooth bladder, with no masses interval CAT scan this was done after kidney stone that was removed by myself. He then came back to see me because he been having gross hematuria we repeated a CAT scan and sure enough the CAT scan shows multiple large polypoid masses in his bladder very suspicious for bladder cancer, plan to proceed with resection of bladder tumors. 80-year-old male was taken back to the operating room after smooth induction of spinal anesthesia he was placed in dorsolithotomy position I went inside the bladder with a cystoscope is a 21 Divehi rigid cystourethroscope I looked inside the bladder with 30 and 70 degree lens I saw 3 large polypoid whitish looking tumor looking bladder masses within the bladder please look fairly large the the one in my right side is 5 cm in size 1 on the left side was 4 cm in size by 7 cm and the one up in the dome was a good 7 cm in size is a very large masses. I then switched over to the resectoscope and I resected the 2 masses that I can reach that were close to the bladder neck but I could not reach the mass up in the dome of the bladder to medial appear to be invasive tumors of the bladder that informed and want to see what the pathology tissue reflects. If it comes back positive for cancer I think that he probably would need chemotherapy followed by possible cystoprostatectomy versus radiation. These tumors appeared to be invasive in nature whitish almost look like squamous cell carcinoma differentiation. After resection of these large masses up with a catheter in the bladder put on continuous bladder irrigation the urine was fairly clear and he was taken back to PACU in good condition we will see what the tissue pathology shows and will proceed from there of note he was positive for the rapid Covid test but the feet PCR diagnostic test is pending but we used Covid precautions for the case given the possibility he could have an asymmetric asymptomatic Covid carrier. Type of Anesthesia:: General Drains: 22fr 3 way - Admit VTE Documentation VTE Present on Admission: No VTE Mechan Device Prophylaxis: SCD's
[2020-08-22] MEDS: 0.9% Normal Saline 1,000 ML 125 ML IV (20:15)
[2020-08-22] MEDS: Ciprofloxacin 400 MG/200 ML BAG 200 MG IV (21:54)
[2020-08-22] MEDS: Metoprolol Tartrate 25 MG Tablet PO (21:57)
[2020-08-22] MEDS: Docusate Sodium 100 MG Capsule PO (21:57)
[2020-08-22] MEDS: Atorvastatin Calcium 10 MG Tablet 5 MG PO (21:58)
[2020-08-22] MEDS: Acetaminophen 325 MG Tablet PO (23:54)
[2020-08-23 04:23] VITALS: BP 119/71; PULSE 64; RESP 18; TEMP 36.5; O2SAT 96
[2020-08-23] MEDS: 0.9% Normal Saline 1,000 ML 125 ML IV (04:32)
[2020-08-23 06:31] LABS: Hematocrit 40.5 % (40-54); Hemoglobin 12.8 g/dL (13.0-16.5); Mean Corp Hgb Conc 31.6 g/dL (32-36); Mean Corpuscular Hgb 27.2 pg (27.0-32.0); Mean Platelet Vol. 11.3 fl (6.2-12.0); POSITIVE COUNT YES; Platelet Count 89 K/mm3 (150-450); RBC Distribution Width CV 14.6 % (11.6-14.6); RBC Distribution Width SD 45.7 fl (35.1-43.9); Red Blood Count 4.71 M/mm3 (4.6-6.2); White Blood Count 9.1 K/mm3 (4.4-11.0)
[2020-08-23 06:53] LABS: Anion Gap 4 (5-15); BUN 34 mg/dL (7-18); BUN/Creat Ratio 16.3 RATIO (10-20); Calcium,Total 8.3 mg/dL (8.5-10.1); Chloride 110 mmol/L (98-107); Creatinine, Serum 2.08 mg/dL (0.70-1.30); EST Glomerular Filtration Rate 33 mL/min (>60); Est Glom Filt Rate - Afr Amer 40 mL/min (>60); Estimated Creatinine Clearance 29.67 ml/min; Glucose 90 mg/dL (74-106); Potassium 4.1 mmol/L (3.5-5.1); Sodium Level 141 mmol/L (136-145)
[2020-08-23 08:12] VITALS: BP 129/69; PULSE 68; RESP 16; TEMP 36.6; O2SAT 95
[2020-08-23] MEDS: Multivitamins,Therapeutic Tablet 1 TABLET PO (08:44)
[2020-08-23 08:45] VITALS: PULSE 68
[2020-08-23] MEDS: Metoprolol Tartrate 25 MG Tablet PO (08:45)
[2020-08-23] MEDS: Pantoprazole Sodium 40 MG Tablet PO (08:45)
[2020-08-23] MEDS: Losartan Potassium 50 MG Tablet PO (08:45)
[2020-08-23] MEDS: Docusate Sodium 100 MG Capsule PO (08:45)
[2020-08-23] MEDS: Ciprofloxacin 400 MG/200 ML BAG 200 MG IV (10:10)
[2020-08-23 13:31] VITALS: BP 112/53; PULSE 83; RESP 16; TEMP 36.6; O2SAT 94
== END 2020-08-23 14:19 | disposition home or self-care (01) ==
LOC: SDC 12:22 → AC 12:22 → SDC 19:52 → MS3 08-23 06:57
PROVIDERS: Anesthesiology; PCP Internal Medicine; Referring Provider Urology; Visit Provider Urology
PROC: 0TBB8ZZ Excision of Bladder, Via Natural or Artificial Opening Endoscopic (ICD-10-PCS; CPT 52240; principal; 2020-08-22 14:55)
DX: C67.9 Malignant neoplasm of bladder, unspecified (principal); R31.0 Gross hematuria; I12.9 Hypertensive chronic kidney disease with stage 1 through stage 4 chronic kidney disease, or unspecified chronic kidney disease; N18.30 Chronic kidney disease, stage 3 unspecified; N40.1 Benign prostatic hyperplasia with lower urinary tract symptoms; R35.0 Frequency of micturition; R33.8 Other retention of urine; E66.9 Obesity, unspecified; E78.00 Pure hypercholesterolemia, unspecified; Z68.36 Body mass index [BMI] 36.0-36.9, adult; Z87.442 Personal history of urinary calculi; Z79.82 Long term (current) use of aspirin; Z79.899 Other long term (current) drug therapy; Z20.828 Contact with and (suspected) exposure to other viral communicable diseases
CPT/HCPCS: 00912; 52240; 36415; 80048; 85027; 87426; 87635; 88305; 88307; 88341; 88342; 93005; 94762; C9803; J7030; J7120; J0744; J2405; U0002

== ENCOUNTER 2020-09-14 10:32 | Inpatient (IN) | payer MEDICARE, OTHER, SELFPAY ==
[2020-08-22 19:54] VITALS: BMI 35.9
--- NOTE | 2020-09-12 14:02 | RAD_ITS ---
STUDY: X-RAY CHEST REASON FOR EXAM: Male, 80 years old. preoperative eval for surgery, patient has bladder cancer TECHNIQUE: 2 views COMPARISON: Prior chest radiograph of 11/22/2019 FINDINGS: The lungs are clear and expanded. There is no demonstrated pleural abnormality. Normal size heart. Normal mediastinum and alvino. Normal visualized pulmonary arteries. There is atherosclerotic calcification of the aortic arch with tortuosity. Mild degenerative changes of the thoracic spine. Normal visualized ribs, clavicles, and shoulders. There is no demonstrated abnormality of the visualized soft tissue structures of the upper abdomen. RAD/Chest PA and Lateral IMPRESSION: No acute cardiopulmonary findings or changes. Negative for consolidation, other infiltrates, atelectasis or pleural effusion. Normal cardiac size. Atherosclerotic changes of the thoracic aorta. Electronically Signed: Felicitas Lema MD at 20:48 EST , Service support ,
[2020-09-12 14:09] LABS: Hematocrit 42.9 % (40-54); Hemoglobin 13.2 g/dL (13.0-16.5); Mean Corp Hgb Conc 30.8 g/dL (32-36); Mean Corpuscular Volume 84.6 fL (80-94); Mean Platelet Vol. 11.3 fl (6.2-12.0); Platelet Count 199 K/mm3 (150-450); RBC Distribution Width CV 14.4 % (11.6-14.6); RBC Distribution Width SD 44.6 fl (35.1-43.9); Red Blood Count 5.07 M/mm3 (4.6-6.2); White Blood Count 15.1 K/mm3 (4.4-11.0)
[2020-09-12 14:32] LABS: AST(SGOT) 10 U/L (15-37); Alanine Aminotransfer ALT/SGPT 17 U/L (16-61); Albumin, Serum 3.9 g/dL (3.2-5.0); Alkaline Phosphatase 46 U/L (45-117); Anion Gap 8 (5-15); BUN 47 mg/dL (7-18); BUN/Creat Ratio 15.1 RATIO (10-20); Calcium,Total 9.2 mg/dL (8.5-10.1); Chloride 108 mmol/L (98-107); Creatinine, Serum 3.11 mg/dL (0.70-1.30); EST Glomerular Filtration Rate 21 mL/min (>60); Est Glom Filt Rate - Afr Amer 25 mL/min (>60); Globulin 3.9 g/dL (2.2-4.2); Glucose 91 mg/dL (74-106); Potassium 4.3 mmol/L (3.5-5.1); Protein, Total 7.8 g/dL (6.4-8.2); Sodium Level 140 mmol/L (136-145)
[2020-09-14] VITALS (20 sets, daily range): BP systolic 67–119; BP diastolic 49–81; PULSE 71–108; RESP 16–18; TEMP 36.2–36.7; O2SAT 94–100; BMI 34.4; BMI 34.2
--- NOTE | 2020-09-14 | PROST_PTH ---
PATIENT: SUSANNAH CALIXTO LOC: MS3 U#:[id number] AGE/SX: 80/M ROOM: SC312 RE09/14/[address]: Dr. Carmela Skinner MD : 1940 BED: 1 DIS: 09/29/2020 SPEC #: [id number] RECD: 09/14/20 18:16 STATUS: ADEEL REQ #: [id number] RICHARDSON: 09/14/20 00:[address]: Aramis Matthew DEPT: SURGICAL PATHOLOGY RECD BY: Matt Avendano ENTERED: 09/17/20 08:49 SP TYPE: PROSTATE OTHR DR: MD Dr. Aramis Andrews MD Dr. Liza D Talampas, MD Dr. Mark Tereletsky, DO Dr. Nicholas F Kotsonis, MD Tissues: A - Prostate, NOS B - HERNIA C - Lymph node of pelvis, NOS D - Lymph node of pelvis, NOS E - Small intestine biopsy Procedures: Surgery Specimen Level II Surgery Specimen Level V Surgery Specimen Level Comments: @ Ordering doctor for SUII edited from to @ by RITCHIE at 09/17/20 0937 @ Ordering doctor for SUIV edited from to @ by RITCHIE at 09/17/20 0937 @ Ordering doctor for SUV edited from to @ by RITCHIE at 09/17/20 0937 @ Ordering doctor for SUVI edited from to @ by RITCHIE at 09/17/20 0937 @ Submitting doctor edited from to @ by RITCHIE at 09/17/2037 HEADER OPERATION: Laparoscopic converted to open radical cystoprostatectomy PRE-OP DIAGNOSIS: Bladder tumor/cancer; gross hematuria TISSUE SUBMITTED: A - Bladder/prostate, B - Left inguinal hernia, C - Right iliac lymph node, D - Left iliac lymph node, E - Bowel MICROSCOPIC DIAGNOSIS A. 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 Prostatic acinar adenocarcinoma. See cancer checklists below. B. Left inguinal soft tissue, excision: Hernia sac with fibrosis. C. Right iliac lymph nodes, regional lymphadenectomy: Three out of four lymph nodes with metastatic urothelial carcinoma. D. Left iliac lymph nodes, regional lymphadenectomy: Two out of three lymph nodes with metastatic urothelial carcinoma. E. Small bowel, segmental resection: Neuroendocrine carcinoma, grade 1. See cancer checklist below. AM:jimmy 09/25/20 COMMENT A. The majority of the tumor consists of high-grade urothelial carcinoma with extensive squamous differentiation. A single large focus of grade 3 neuroendocrine carcinoma is present within the bladder and is grossly indistinguishable from the urothelial carcinoma. The prostate gland contains prostatic acinar adenocarcinoma. UROTHELIAL CARCINOMA SUMMARY (SPECIMEN A) Procedure - radical cystoprostatectomy Tumor site - entire surface of bladder wall Tumor size - 8 x 8 x 1.3 cm Histologic type - invasive urothelial carcinoma with 40% squamous differentiation. Histologic grade - poorly differentiated (G3) Tumor extension - tumor invades perivesicular soft tissue. Margins - uninvolved by invasive carcinoma. Lymphvascular invasion - present Regional lymph nodes: Number of lymph nodes involved - 5 of 8 Size of largest metastatic deposit - 3 cm (left inguinal lymph node) Extranodal extension - present Number of lymph nodes examined - 8 See specimens C & D. Additional pathologic findings - mucosal ulceration and tumor necrosis. PATHOLOGIC STAGE: pT3b N2 Mx NEUROENDOCRINE CARCINOMA SUMMARY (SPECIMEN A) Procedure - cystoprostatectomy Tumor site - urinary bladder Tumor size - 3.4 x 1.8 x 1 cm Tumor focality - unifocal Histologic grade - high grade (G3) Mitotic rate - >20 mitosis per 2 mm2 Ki-67 labeling index - >95% Tumor extension - into perivesicular soft tissue, focally. Margins - free of carcinoma. Lymphvascular invasion - present Perineural invasion - not identified Regional lymph nodes: Number of lymph nodes involved - 0 Total number of lymph nodes examined - 8 See specimens C & D. Additional pathologic findings - tumor necrosis with mucosal ulceration. PATHOLOGIC STAGE: T3 N0 Mx PROSTATE CARCINOMA SUMMARY (SPECIMEN A) Procedure - radical cystoprostatectomy Prostate Size - 4.5 x 4 x 3 cm Histologic type - acinar adenocarcinoma Histologic grade - group 1 ([place] score 3+3=6) Percent of Pattern 4 - 0 Tumor size - 8 x 6 x 5 mm Extraprostatic Extension - Not identified Urinary Bladder Neck Invasion - Not identified Seminal Vesicle Invasion - Not identified Lymphvascular Invasion - Not identified Perineural Invasion - Not identified Margins - Free of carcinoma Treatment Effect - Unknown Regional Lymph Nodes: Number of lymph nodes involved by carcinoma - 0 Total Number of Lymph Nodes Examined - 8 See specimens C & D. Additional Pathologic Findings - glandular atrophy PATHOLOGIC STAGE: T2 N0 Mx SMALL BOWEL NEUROENDOCRINE CARCINOMA SUMMARY (SPECIMEN E) Procedure - segmental small bowel resection Tumor site - small bowel, not further specified Tumor size - 7 x 6 x 6 mm Tumor focality - unifocal Histologic type - well differentiated neuroendocrine tumor (G1) Mitotic rate - <2 mitosis per 2 mm2 Ki-67 labeling index - <2% Tumor extension: Tumor invades subserosa. Margins: Proximal margin - free of carcinoma. Distal margin - free of carcinoma. Radial margin - free of carcinoma. Regional lymph nodes: Number of lymph nodes involved - 0 Number of lymph nodes identified - 0 PATHOLOGIC STAGE: T3 Nx Mx The above summary is in compliance with [employer] [place] [employer] (CAP) Cancer Protocols Checklist and [place] [employer] Committee on Cancer (AJCC), Staging Manual, 8th Ed. Immunohistochemistry ([id number]) supports the above diagnosis. Case has been reviewed in consultation with Dr. Peralta who concurs with the above diagnosis. IDC:SJ MICROSCOPIC DESCRIPTION Slides are reviewed. GROSS DESCRIPTION A - Received in fixative is one container labeled with the patient's name and designated bladder/ prostate. The specimen consists of a cystoprostatectomy measuring 24 x 16 x 10 cm. Presumed segments of right ureter measuring 1.5cm and segments of left ureter measuring 1.2 cm are unremarkable. The external surface of the specimen is inked in black ink and the specimen serially sectioned to reveal a mass that occupies essentially the entire surface of the bladder measuring 8 x 8 cm and extending intraluminally for a distance of 1.3 cm. The adherent prostate does not appear to grossly contain neoplasm. The distal urethral margin is grossly unremarkable. The neoplasm appears to extend into the perivesicular fatty tissue, but is not noted at the inked surfaces, grossly but located approximately 2 mm from its closest inked surface. The grossly unremarkable prostate gland measures 4.5 x 4 x 3 cm and weighs 45 gm. Serial sections of the prostate and seminal vesicles do not reveal involvement by neoplasm. Scheduling Assistant sections are submitted as follows: 1 - right ureteric, vas deferens and vascular margin, 2 - left ureteric, vas deferens and vascular margin, 3 - distal urethral margin, 4 - tumor dome, 5 - tumor at right lateral wall, 6 - tumor at left lateral wall, 7 - tumor at trigone, 8-11 - additional sections of tumor, 12 & 13 - prostate, basal section, 14 & 15 - prostate, mid portion, 16 & 17 - prostate, apical portion, 18 - seminal vesicles. / AM: 09/18/20 B - Received in fixative is one container labeled with the patient's name and designated left inguinal hernia sac. The specimen consists of a glistening fragment of james-yellow fibrofatty tissue measuring 11 x 8 x 2 cm. Serial sections do not reveal mass lesions. Scheduling Assistant sections are submitted in one cassette. / AM: 09/17/20 C - Received in fixative is one container labeled with the patient's name and designated right iliac lymph node. The specimen consists of multiple irregular fragments of james-yellow fibrofatty tissue that in aggregate measure 6 x 6 x 1 cm. Dissection reveals four rubbery, james nodules ranging in size from 2 to 3.5 cm in greatest dimension. The lymph nodes are submitted in their entirety as follows: 1 - one bisected lymph node, 2 - one bisected lymph node, 3 - one bisected lymph node, 4 - one lymph node serially sectioned. / AM: 09/17/20 D - Received in fixative is one container labeled with the patient's name and designated left iliac lymph node. The specimen consists of multiple irregular fragments of james-yellow fibrofatty tissue that in aggregate measure 5 x 4 x 1 cm. Dissection reveals three rubbery, james nodules ranging in size from 1 to 1.5 cm in greatest dimension. The nodules are totally submitted in three cassettes as follows: 1 - three nodules, 2 - three nodules, 3 - two nodules. / AM: 09/17/20 E - Received in fixative is one container labeled with the patient's name and designated bowel. The specimen consists of a 4.5 cm bowel surrounding by yellow fibrofatty tissue. Serial sections reveal a james mucosal nodule measuring 0.7 cm in greatest dimension. Scheduling Assistant sections are submitted in four cassettes as follows: 1 - open end mucosal margin (inked) and stapled margin, 2-4 - medical customer service representative sections of nodule and uninvolved bowel. / AM:jimmy 09/17/20 TC:0 CPT: 22411, 14156, 21596 x3 ADDENDUM ADDENDUM ADDENDUM ADDENDUM ADDENDUM ADDENDUM ADDENDUM ADDENDUM 02/28/2021 08:55 ADDENDUM 02/28/2021 08:55 ADDENDUM 02/28/2021 08:55 ADDENDUM 02/28/2021 08:55 ADDENDUM 02/28/2021 08:55 PD-L1 (KEYTRUDA) IMMUNOHISTOCHEMICAL ANALYSIS FROM [facility] RESULTS: PD-L1 IHC ANALYSIS FOR UROTHELIAL CARCINOMA: Combined Positive Score: <1 (CPS<10 / No PD-L1 Expression) Please see complete report in e-chart or EMR
--- NOTE | 2020-09-14 | IMM_PTH ---
PATIENT: SUSANNAH CALIXTO LOC: MS3 U#:[id number] AGE/SX: 80/M ROOM: MS312 RE09/14/[address]: Dr. Carmela Skinner MD : 1940 BED: 1 DIS: 09/29/2020 SPEC #: [id number] RECD: 09/18/20 11:10 STATUS: ADEEL REQ #: [id number] RICHARDSON: 09/14/20 00:[address]: Aramis Matthew DEPT: IMMUNOHISTOCHEMISTRY RECD BY: Radha Martinez ENTERED: 09/18/20 11:16 SP TYPE: IMMUNO OTHR DR: MD Dr. Kim Andrews MD Dr. Mark Tereletsky, DO Dr. Nicholas F Kotsonis, MD Tissues: C - LYMPH NODE BIOPSY D - LYMPH NODE BIOPSY E - BOWEL BIOPSY Procedures: Synapto (add) CK8 (initial) CD31 (add) CD56 (add) CEA (add) CHROMO (add) CK20 (add) CK5-6 (add) CK7 (add) CK8 (add) KI-67 (add) PSA (add) 34BE12 (add) FACTOR VIII (add) P40 (add) CD44 (add) NSE (add) CD56 (initial) PHYSICIAN & [place] [id number] SPECIMEN INFORMATION: Tissue Source: A - Bladder/prostate, C - Right iliac lymph node, D - Left iliac lymph node, E - Bowel Clinical Info: Bladder tumor/cancer, gross hematuria Specimen Number: [id number] C1-C4, D1-D3, E2 CPT code: 60900 x4, 52249 x46 METHODOLOGY: Deparaffinized sections of prefer/formalin-fixed tissue or PAP/DQ stained slides are incubated with monoclonal/polyclonal antibodies/oligonucleotide probes. Localization is made via biotin free immunoperoxidase method. Appropriate controls are performed and reacted as expected. Results on target cell population are indicated in the following table: RESULTS: ANTIBODY / CLONE RESULT Block A4 CD56 (123C3.D5) negative Chromo (LK2H10) negative Synapto (polyclonal) negative CK7 (OV-TL12/30) positive CK20 (KS20.8) positive P40 (BC28) positive CK5-6 (D5 & 1684) positive anti-CD44 (SP37) positive Block A8 CD56 (123C3.D5) positive Chromo (LK2H10) negative Synapto (polyclonal) positive CK7 (OV-TL12/30) positive CK20 (KS20.8) negative P40 (BC28) negative CK5-6 (D5 & 1684) negative anti-CD44 (SP37) positive, focal Ki-67 (30-9) positive, >95% Block A14 PSA (ER-PR8) positive P40 (BC28) negative 34BE12 (34BE12) negative CK7 (OV-TL12/30) negative CK20 (KS20.8) negative anti-CD44 (SP37) negative Block C1 CK8 (42wymmT22) negative CK20 (KS20.8) negative Block C2 CK8 (17nlnnW71) positive CK20 (KS20.8) positive CD31 (JANIS/70A) positive Factor VIII (R Ag) positive anti-CD44 (SP37) positive Block C3 CK8 (74bawjU59) positive CK20 (KS20.8) positive Block C4 CK8 (95jsxxB08) positive CK20 (KS20.8) positive Block D1 CK8 (97gflpQ69) positive CK20 (KS20.8) positive Block D2 CK8 (87gidvC39) positive CK20 (KS20.8) positive Block D3 CK8 (57xleiT35) negative CK20 (KS20.8) negative Block E2 CK7 (OV-TL12/30) negative CK8 (48yuklH60) positive CK20 (KS20.8) negative CD56 (123C3.D5) positive Chromo (LK2H10) positive Synapto (polyclonal) positive NSE Neuron Specific Enolase positive anti-CD44 (SP37) negative CEA (11-7/TF-3HB-1) positive Ki-67 (30-9) positive, <1% These tests were developed and their performance characteristics determined by [facility]. They may not have been cleared or approved by the U.S. Food and Drug Administration. The FDA has determined that such clearance or approval is not necessary. The above immunohistochemical/dualISH markers are ordered and reviewed by the Pathologist. INTERPRETATION: A. Bladder/prostate: Invasive urothelial carcinoma. Neuroendocrine carcinoma, grade 3. Prostatic acinar adenocarcinoma. C. Right iliac lymph node, biopsy: Three of four lymph nodes with metastatic urothelial carcinoma. D. Left iliac lymph node, biopsy: Two of three lymph nodes with metastatic urothelial carcinoma. E. Bowel, biopsy: Neuroendocrine carcinoma, grade 1. AM:rg 09/21/20 Endolymphatic invasion by urothelial carcinoma is focally present. Case has been reviewed in consultation with Dr. Peralta who concurs with the above diagnosis. IDC:SJ
[2020-09-14] MEDS: 0.9% Normal Saline 1,000 ML 30 ML IV (10:21)
[2020-09-14] MEDS: 0.9% Normal Saline 1,000 ML 100 ML IV (10:23)
--- NOTE | 2020-09-14 10:30 | PCM.HP.STD ---
Problem List (1) Bladder cancer Status: Acute Qualifiers: Bladder location: overlapping sites Qualified Code(s): C67.8 - Malignant neoplasm of overlapping sites of bladder History of Present Illness Date of Admission: 09/14/20 Chief Complaint: Invasive bladder cancer The patient is a 80 year old male who recently was diagnosed with invasive bladder cancer cancer with squamous differentiation. Working to proceed with laparoscopic robotic assisted radical cystoprostatectomy and formation of an ileal conduit. He understands the risk of the procedure is bleeding infection intestinal problems bowel obstruction, problems with the ileal conduit. He understands is possible that this may not be curative for his cancer and he may need further treatment such as chemotherapy and radiation was also may not be curative. After discussing with the patient and the family he signed the consent form again to proceed with surgery. Past Medical History Medical History: Medical History (Last Reviewed 09/14/20 @ 10:[address] Aramis Matthew MD) Chest pain R07.9 Knee pain M25.569 HTN (hypertension) I10 Allergies atenolol Adverse Reaction (Verified 09/14/20 09:51) hypotension HYPOTENSION tamsulosin [From Flomax] Adverse Reaction (Verified 09/14/20 09:51) PT UNSURE OF REACTION passed out Home Medications: Ambulatory Orders Medication Instructions Recorded Losartan Potassium [Cozaar] 50 mg PO DAILY 05/01/16 Simvastatin [Zocor] 10 mg PO QHS 05/01/16 Aspirin [Aspirin, Baby] 81 mg PO DAILY@0800 05/01/19 Multivitamin [Daily Value] 1 ea PO DAILY 12/11/19 Vit C/E/Zn/Coppr/Lutein/Zeaxan 1 ea PO BID 12/11/19 [Preservision Areds 2 Softgel] Metoprolol Tartrate [Lopressor 25 mg PO BID #60 tab 12/13/19 (beta neetu)] Surgical History: TURP Psychiatric History: No pertinent psych hx Smoking Status: Former smoker - *Family History Maternal History Items: No pertinent history Review of Systems Constitutional: Denies: Chills, Fever, Weight Change HEENT: Denies: Head Aches, Sinus Congestion, Sinus Drainage Cardiovascular: Denies: Chest Pain, Palpitations Respiratory: Denies: Cough, Shortness of breath at rest, Sputum production Gastrointestinal: Denies: Abdominal Pain, Nausea, Vomiting Genitourinary: Denies: Dysuria Musculoskeletal: Denies: Joint Pain, Joint Tenderness Skin: Denies: Rash, Wounds Neurological: Denies: Numbness, Tingling, Focal weakness Psychiatric: Denies: Anxiety, Depression, Homicidal Ideations, Suicidal Ideations Hematologic/ Lymphatic: Denies: Easy Bruising, Easy Bleeding VTE Information - Inpt Only VTE Present on Admission: No VTE Mechan Device Prophylaxis: SCD's - Physical Exam Vitals/I&O's: Vital Signs Temp Pulse Resp BP Pulse Ox 98.0 F 71 16 119/67 96 09/14/20 09:55 09/14/20 09:55 09/14/20 09:55 09/14/20 09:55 09/14/20 09:55 Oxygen Delivery Method Room Air Weight: 112 kg Body Mass Index (BMI) 34.4 General: Alert, Oriented x3, Cooperative HEENT: Atraumatic, PERRLA, EOMI, Normocephalic Neck: Supple, No JVD, Negative Carotid Bruits Lungs: Clear to auscultation, Normal air movement Cardiovascular: Regular rate, No murmurs Abdomen: Bowel Sounds Present, Soft, Non Tender Extremities: No edema, Capillary Refill Less than 3 Seconds Skin: No rashes, No breakdown Musculoskeletal: No Tenderness to Palpation of Joints or Extremities Neurological: Cranial nerves II-XII grossly intact Psych/Mental Status: Normal Affect, Appropriate Microbiology Past 72 Hours 09/12/20 14:11 Interface Orders SARS-CoV-2 Antigen (Rapid) - Final Current Medications Sodium Chloride () 1,000 mls @ 30 mls/hr IV .[id number] [facility] Last Admin: 09/14/20 10:21 Dose: 30 mls/hr Documented by: Sodium Chloride () 1,000 mls @ 100 mls/hr IV .Q10H [facility] Last Admin: 09/14/20 10:23 Dose: 100 mls/hr Documented by: Sodium Chloride (0.9% Nacl Peripheral Flush Adult/Peds) 5 - 15 ml IV UD PRN PRN Reason: SALINE FLUSH Assessment/Plan All Active Problems (Last Reviewed 12/06/19 @ 17:17 by Sruthi Renner) Bladder tumor (Acute) Bladder cancer (Acute) Gross hematuria (Acute) Abrasion of right hand, initial encounter (Acute) Contusion of unspecified front wall of thorax, initial encounter (Acute) Plan to proceed with laparoscopic robotic assisted radical cystoprostatectomy and formation of an ileal conduit.
[2020-09-14] MEDS: Cefazolin 2 GM in 0.9% Normal Saline 100 ML IV (11:15)
[2020-09-14] MEDS: Bupivacaine Mpf 0.5% 30 ML VIAL (11:31)
--- NOTE | 2020-09-14 13:15 | PCM.OPRPT ---
Problem List (1) Incarcerated left inguinal hernia Status: Acute Report of Operation Date of Procedure: 09/14/20 Pre-Operative Diagnosis: Incarcerated left inguinal hernia Post-Operative Diagnosis: Same Surgery/Procedure Performed:: Left inguinal hernia repair with mesh Specimen's removed: Left inguinal hernia sac Description of Procedure: The patient was having a radical cystectomy by Dr. Matthew. Patient was found to have incarcerated left inguinal hernia containing colon and was unable to be reduced. I was called the surgery to address this. I was unable to reduce this laparoscopically. At this time the discussion was had and it was decided the patient cannot have his surgery without reduction of the colon. Next an incision was made in the left inguinal region and deepened to the external aponeurosis which was incised. The hernia sac was dissected free and open. The colon was identified and reduced into the abdomen manually from the outside. The hernia sac was inspected and all of the colon adhesions had successfully been reduced into the abdomen. Next the hernia sac was dissected free from the spermatic cord and an 0 silk suture was used to suture ligate the hernia sac and was divided and removed. Next a macro porous mesh was trimmed into a keyhole and sutured to the pubic tubercle using 2-0 PDS suture. The mesh was then tacked to the inguinal ligament using interrupted 2-0 PDS sutures and to the conjoined tendon medially using erupted 2-0 PDS sutures. The tails of the mesh were wrapped around the spermatic cord and tacked together leaving enough room for the pinky to be placed adjacent to the spermatic cord. Tails of the mesh were tucked underneath the external aponeurosis which was then reapproximated using a running 3-0 Vicryl suture. The area was irrigated and suctioned dry. Lenora's fascia was reapproximated using interrupted 3-0 Vicryl sutures. Skin was closed with a running 4-0 Monocryl suture. The testicles were both present at the end of my part of the procedure. The patient was then placed back in Trendelenburg position and pneumoperitoneum was reestablished. The colon was inspected. After this the robot was docked and Dr. Matthew proceeded with his surgery. - Admit VTE Documentation VTE Mechan Device Prophylaxis: SCD's
--- NOTE | 2020-09-14 17:45 | PCM.OPRPT ---
Problem List (1) Bladder cancer Status: Acute Qualifiers: Bladder location: overlapping sites Qualified Code(s): C67.8 - Malignant neoplasm of overlapping sites of bladder Report of Operation Date of Procedure: 09/14/20 Pre-Operative Diagnosis: Invasive bladder cancer and right large inguinal hernia Post-Operative Diagnosis: The same Surgery/Procedure Performed:: Laparoscopic converted to open radical cystoprostatectomy. Bilateral pelvic lymph node dissection and formation of a ileal conduit. General surgery did a right inguinal hernia repair with mesh Description of Surgical Findings:: 80-year-old male has invasive bladder cancer who presents to the operating room for removal of his prostate and bladder. He was taken back to the operating room after smooth induction of general anesthesia he was placed in dorsolithotomy position. The penis and testicles and abdomen was shaved prepped and draped in usual sterile fashion. We first made an incision in the umbilicus and placed a Veress needle into the peritoneal cavity. Then did place the trocar in the peritoneal cavity and insufflated the peritoneal cavity with CO2 gas we then docked the right left robotic arm and fourth robotic arm air seal port and suction port. Immediately when we got inside the abdomen we identified a very large hernia on the right side with bowel in it and this was preventing us from dissecting on the bladder so I called general surgery in and he ended up doing, Dr. Josue ended up doing an open right inguinal hernia repair I assisted him with this repair he did this to a separate incision in the right inguinal groin. After this hernia repair was done we then went back laparoscopically inside the abdomen but we found that the bladder was so heavy and the the large bowel and the bowel was hanging so tight against the bladder that we could not dissect laparoscopically and therefore made the elective fashion to convert to open once I was failing to progress. We then made an incision in the midline dissecting between the rectus we placed the Bookwalter to retract the small intestine and bowels out of the pelvis I then dissected the right wing and the left ring of the pelvis of the bladder and the bladder wing and then we dissected down to the pelvic sidewall I then identified the left and the right ureters. The left ureter was extremely dilated the right ureter was normal in size. We placed a vessel loop around these. I then using the reticulating Endo SAM stapler took the pedicles of the prostate and the bladder in sequential fashion on the right and left side until we reached the apex of the prostate we then fractured to the dorsal vein complex and then came across the urethra and the prostate and bladder were then removed intact and sent off as a specimen. I then stitched the dorsal vein complex. We then placed a 20 Stateless catheter through the urethra into the pelvis as a drain only there is no injury to the rectum. We then proceeded with the lymph node dissection we did a complete lymph node dissection on the right side and the left side cleaning all the lymphatic tissue off the obturator space and lateral pelvic sidewall all this was sent off as a specimen to the pathologist. We then identified the conduit at 20 cm section of conduit we measured 20 cm back from the ileocecal valve junction and took the conduit we stapled across the the bowel and we marked the conduit distal end and then we performed the anastomosis of the bowel back together we are getting the bowel back together there was an abnormal hard lump felt like a lipoma in the bowel side to resect another piece about this was sent off as a separate specimen and then I did the anastomosis of the bowel with Endo SAM's and a TA 85 across we then closed the mid mesentery window I then opened up the suture line on the proximal end of the ileal conduit. We then did a Garza anastomosis by first suturing the 2 ureters together and then suturing the ureters onto the bowel I would place a stent on the right and left side. We then opened up the staple line distally on the ileal conduit we placed Paterson's on the fascia the pole of fascia and medially made an incision in the skin down to the fascia opened up the fascia in a cruciate fashion so 2 fingers went to the fascia easily and then pulled the ileal conduit up and then using fluoroscopy and 3-0 Vicryl's we did a [place] on the ileal conduit and then I placed a drain, 18 Stateless red rubber catheter into the conduit to help drain the conduit. At this point little urine output was coming from the conduit. We then copiously flushed the abdomen and then closed the fascia in the midline with running from the top and the bottom up to the midline with #1 PDS. We then reapproximated the skin you riccardo in the midline and then 4-0 Monocryl on all the others subcuticular stitches. So long difficult case blood loss was about a liter. Urine output was not measured because we are doing a conduit. All the instruments sponges and needles were accounted for at the end of the case. Patient's anesthetic was reversed he was extubated dressings were placed the condyle was placed on the ostomy site and he was taken back to the PACU in good condition we did leave a drain with a SAMANTHA drain in the pelvis and he also had a drain to the urethra. Type of Anesthesia:: General Drains: Mcpherson, Ostomy site, SAMANTHA drain Estimated Blood Loss (mL): 1000L - Admit VTE Documentation VTE Present on Admission: No VTE Mechan Device Prophylaxis: SCD's
--- NOTE | 2020-09-14 18:25 | SUR.PHASEI ---
PT HAS 4 OPSITE INCISIONS AND 1 HERNIAL REPAIR INCISION. GUARDADO IS A DRAIN ONLY AND WILL NOT HAVE ANY URINE. URINE WILL BE COLLECTED VIA UROSTOMY SITE. PT REC'D 4L LR IN OR, EBL 1000.
[2020-09-14 18:35] LABS: Hematocrit 34.5 % (40-54); Hemoglobin 10.5 g/dL (13.0-16.5); Mean Corp Hgb Conc 30.4 g/dL (32-36); Mean Corpuscular Hgb 26.6 pg (27.0-32.0); Mean Corpuscular Volume 87.3 fL (80-94); Mean Platelet Vol. 12.1 fl (6.2-12.0); POSITIVE COUNT YES; Platelet Count 180 K/mm3 (150-450); RBC Distribution Width CV 14.5 % (11.6-14.6); RBC Distribution Width SD 46.2 fl (35.1-43.9); Red Blood Count 3.95 M/mm3 (4.6-6.2)
[2020-09-14 18:41] LABS: Scan Indicated on CBC? Y/N YES- FLAGS NOTED; White Blood Count 38.4 K/mm3 (4.4-11.0)
[2020-09-14 18:55] LABS: Anion Gap 11 (5-15); BUN 46 mg/dL (7-18); BUN/Creat Ratio 11.6 RATIO (10-20); Calcium,Total 7.6 mg/dL (8.5-10.1); Chloride 116 mmol/L (98-107); Creatinine, Serum 3.96 mg/dL (0.70-1.30); EST Glomerular Filtration Rate 16 mL/min (>60); Est Glom Filt Rate - Afr Amer 19 mL/min (>60); Estimated Creatinine Clearance 15.58 ml/min; Glucose 166 mg/dL (74-106); Potassium 4.7 mmol/L (3.5-5.1); Sodium Level 146 mmol/L (136-145)
[2020-09-14] MEDS: Ciprofloxacin 400 MG/200 ML BAG 200 MG IV (21:39)
[2020-09-14] MEDS: Lactated Ringers 1,000 ML 150 ML IV (21:39)
[2020-09-14] MEDS: Docusate Sodium 100 MG Capsule 200 MG PO (22:25)
[2020-09-14] MEDS: Lactated Ringers 1,000 ML 999 ML IV (23:02)
[2020-09-14] MEDS: 0.9% NaCl Peripheral Flush Adult/Peds IV (23:03)
[2020-09-15] VITALS (8 sets, daily range): BP systolic 96–120; BP diastolic 49–60; PULSE 78–111; RESP 16–18; TEMP 36.3–37; O2SAT 92–98
[2020-09-15] MEDS: Lactated Ringers 1,000 ML 150 ML IV ×3 (04:44→19:50)
[2020-09-15] MEDS: Lactated Ringers 1,000 ML 999 ML IV (06:56)
[2020-09-15 07:15] LABS: Hematocrit 32.5 % (40-54); Hemoglobin 10.2 g/dL (13.0-16.5); Mean Corp Hgb Conc 31.4 g/dL (32-36); Mean Corpuscular Hgb 27.3 pg (27.0-32.0); Mean Corpuscular Volume 87.1 fL (80-94); Mean Platelet Vol. 12.1 fl (6.2-12.0); POSITIVE COUNT YES; Platelet Count 132 K/mm3 (150-450); RBC Distribution Width CV 14.7 % (11.6-14.6); Red Blood Count 3.73 M/mm3 (4.6-6.2)
[2020-09-15 07:17] LABS: Scan Indicated on CBC? Y/N YES- FLAGS NOTED; White Blood Count 41.9 K/mm3 (4.4-11.0)
[2020-09-15 07:42] LABS: Differential Comment YES
[2020-09-15 08:23] LABS: Anion Gap 9 (5-15); BUN 51 mg/dL (7-18); Calcium,Total 7.9 mg/dL (8.5-10.1); Chloride 114 mmol/L (98-107); Creatinine, Serum 4.64 mg/dL (0.70-1.30); EST Glomerular Filtration Rate 13 mL/min (>60); Est Glom Filt Rate - Afr Amer 16 mL/min (>60); Glucose 160 mg/dL (74-106); Potassium 4.8 mmol/L (3.5-5.1); Sodium Level 143 mmol/L (136-145)
--- NOTE | 2020-09-15 08:48 | PN_ITS ---
Patient Problems: Active and Suspected Problems (Last Reviewed 09/14/20 @ 10:[address] Aramis Matthew MD) Bladder cancer (Acute) Incarcerated left inguinal hernia (Acute) Subjective: 80-year-old male who underwent open radical cystoprostatectomy yesterday very long complicated case also has incarcerated hernia that was repaired at the same time a general surgery. During surgery probably had about a liter of blood loss. His blood pressure was hypotensive required pressure medications during surgery was resuscitated. In the PACU he did get 1 unit of blood. Probably got 4 L of crystalloid during surgery yesterday. Blood pressure was stable but slightly low overnight hemoglobin stable at 10 no signs of bleeding. He did have chronic renal insufficiency before surgery which was worsened due to due to his bladder cancer he was found to have an obstructed left ureter very dilated, his creatinine was about 3.1 before surgery overnight he has not made any urine output despite fluid boluses. We will hold his blood pressure medications. Continue with supportive aggressive hydration. Blood pressure stable this mo rning probably would like to get a little better but stable. Hemoglobin is stable. No need for blood transfusion. He does get another fluid bolus now we will continue with LR at 150/h. White blood count also fairly elevated at 40,000 and can expand his antibiotics of cefotetan. I anticipate fairly opal postoperative course given his comorbidities going into surgery and his chronic renal sufficiency going into surgery. I get a consult nephrology hopefully the patient will require temporary dialysis but his urine output is very low and his creatinine is rising right now no signs of uremia but will consult nephrology to get them on board in case dialysis is necessary if his renal function does not recover hopefully will recover with hydration fluid we will stop his losartan and beta-neetu for now. Also will consult hospitalist to assist with medical care of patient after major surgery. - Physical Exam Vitals/I&O's: Vital Signs Temp Pulse Resp BP Pulse Ox 97.3 F L 89 18 97/49 L 96 09/15/20 04:25 09/15/20 04:25 09/15/20 04:25 09/15/20 04:25 09/15/20 04:25 Oxygen Flow Rate (L/min) 2 Oxygen Delivery Method Room Air Weight: 111.584 kg Body Mass Index (BMI) 34.2 Intake and Output for Last 24 Hours 09/13/20 09/14/20 09/15/20 23:59 23:59 23:59 Intake Total 2310 / 2310 3322.5 / 3322.5 Output Total 43 / 43 120 / 120 Balance 2267 / 2267 3202.5 / 3202.5 General: Alert, Oriented x3, Cooperative HEENT: Atraumatic, PERRLA, EOMI, Normocephalic Neck: Supple, No JVD, Negative Carotid Bruits Lungs: Clear to auscultation, Normal air movement Cardiovascular: Regular rate, No murmurs Abdomen: Bowel Sounds Present, Soft, Non Tender Extremities: No edema, Capillary Refill Less than 3 Seconds Skin: No rashes, No breakdown Musculoskeletal: No Tenderness to Palpation of Joints or Extremities Neurological: Cranial nerves II-XII grossly intact Psych/Mental Status: Normal Affect, Appropriate Microbiology Past 72 Hours 09/12/20 14:11 Interface Orders SARS-CoV-2 Antigen (Rapid) - Final Laboratory Results 09/14/20 13:55: Crossmatch See Detail 09/14/20 18:30: WBC 38.4 H*, RBC 3.95 L, Hgb 10.5 L, Hct 34.5 L, MCV 87.3, MCH 26.6 L, MCHC 30.4 L, RDW Std Deviation 46.2 H, RDW Coeff of Jeff 14.5, Plt Count 180, MPV 12.1 H, Differential Comment COMMENT, Diff Path Review February [facility] 09/14/20 18:30: Sodium 146 H, Potassium 4.7, Chloride 116 H, Carbon Dioxide 19.0 L, Anion Gap 11, BUN 46 H, Creatinine 3.96 H, Estim Creat Clear Calc 15.58, Est GFR (MDRD) Af Amer 19 L, Est GFR (MDRD) Non-Af 16 L, BUN/Creatinine Ratio 11.6, Glucose 166 H, Calcium 7.6 L 09/15/20 07:05: WBC 41.9 H*, RBC 3.73 L, Hgb 10.2 L, Hct 32.5 L, MCV 87.1, MCH 27.3, MCHC 31.4 L, RDW Std Deviation 47.0 H, RDW Coeff of Jeff 14.7 H, Plt Count 132 L, MPV 12.1 H, Differential Comment YES, Diff Path Review February09/15/20 07:05: Sodium 143, Potassium 4.8, Chloride 114 H, Carbon Dioxide 20.0 L , Anion Gap 9, BUN 51 H, Creatinine 4.64 H, Estim Creat Clear Calc 13.30, Est GFR (MDRD) Af Amer 16 L, Est GFR (MDRD) Non-Af 13 L, BUN/Creatinine Ratio 11.0, Glucose 160 H, Calcium 7.9 L Current Medications Acetaminophen (Acetaminophen 325 Mg Tablet) 325 - 650 mg PO Q4H PRN PRN PRN Reason: pain score 1-10/fever/headache Hydrocodone Bitart/Acetaminophen (Hydrocodone Bitartrate/Apap 5/325 Tablet) 1 - 2 tablet PO Q6H PRN PRN PRN Reason: Pain Score 1-5 Docusate Sodium (Docusate Sodium 100 Mg Capsule) 200 mg PO BID [facility] Last Admin: 09/14/20 22:25 Dose: 200 mg Documented by: Lactated Ringer's () 1,000 mls @ 150 mls/hr IV .[id number] [facility] Last Infusion: 09/15/20 08:11 Dose: 150 mls/hr Documented by: Sodium Chloride () 250 mls @ 15 mls/hr IV .[id number] PRN PRN Reason: Saline Flush Sodium Chloride () 250 mls @ 15 mls/hr IV .[id number] PRN PRN Reason: Additional IVPB Infusion Cefotetan Disodium 2 gm/ (Sodium Chloride) 100 mls @ 200 mls/hr IV Q24 SHANE Sodium Chloride () 250 mls @ 15 mls/hr IV .[id number] PRN PRN Reason: Saline Flush Sodium Chloride () 250 mls @ 15 mls/hr IV .[id number] PRN PRN Reason: Additional IVPB Infusion Magnesium Hydroxide (Magnesium Hydroxide 30 Ml Udc) 30 ml PO Q4H PRN PRN PRN Reason: Heartburn Metoclopramide HCl (Metoclopramide 10 Mg/2 Ml Vial) 10 mg IV Q8H PRN PRN PRN Reason: Nausea/vomiting Morphine Sulfate (Morphine 2 Mg/Ml Syringe) 2 mg IV Q2H PRN PRN PRN Reason: Pain Score 6-10 Ondansetron HCl (Ondansetron 4 Mg/2 Ml Vial) 4 mg IV Q8H PRN PRN Reason: Nausea Sodium Chloride (0.9% Nacl Peripheral Flush Adult/Peds) 5 - 15 ml IV UD PRN PRN Reason: SALINE FLUSH Last Admin: 09/14/20 23:03 Dose: 10 ml Documented by: Sodium Chloride (0.9% Saline Lock 10 Ml Syringe) 10 - 40 ml IV UD PRN PRN Reason: SALINE FLUSH Medical Necessity - Tobacco Use Smoking Status: Former smoker Assessment/Plan All Active Problems (Last Reviewed 09/14/20 @ 10:[address] Aramis Matthew MD) Bladder tumor (Acute) Bladder cancer (Acute) Incarcerated left inguinal hernia (Acute) Gross hematuria (Acute) Abrasion of right hand, initial encounter (Acute) Contusion of unspecified front wall of thorax, initial encounter (Acute) Assessment and plan. 80-year-old male with multiple comorbidities chronic renal insufficiency worsening because of bladder cancer status post cystoscopy radical prostatectomy and ileal conduit formation. Nutrition status, n.p.o. for now he can have sips and chips of water await return of bowel function. Infectious disease, no signs of infection but white count is severely elevated could be stress response but will add cefotetan and to broaden coverage. Renal, creatinine and renal function is worse this morning very little urine output will continue with hydration. He appears fully hydrated will consult nephrology. Hold losartan and hold beta-neetu for now. He can be out of bed he can ambulate as tolerated we will continue with recovery we will see if his kidney function recovery put a consult in for nephrology to see him also consult in for hospital associated assist with postoperative care.
[2020-09-15] MEDS: Morphine 2 MG/ML Syringe IV (09:34)
--- NOTE | 2020-09-15 09:40 | CASEMGMT ---
LIAM VAZQUEZ Face to Face with patient for initial transition planning/care coordination assessment. RN CM introduced self and role at [facility]. Patient lying in bed, alert and oriented. Patient willing to participate in assessment and is able to answer all questions appropriately. Care providers, pharmacy, and demographics verified. Patient wishes to discharge home and will need HHC for urostomy teaching. CM will follow-up on Thursday for HHC setup. Patient states he has no further needs or concerns at this time. CM to follow for discharge planning needs that may arise. PCP: Brian Specialists: Vipul Cali Pharmacy: [facility] Insurance: [employer] Prescription Benefit: yes Living Will/HPOA: none LNOK: Living Arrangements: Patient lives with in a 2 story home with a bed and bath on first floor. 2 steps and railing to enter the home. Patient states he is independent Transportation: self/ DME/HHC: Patient states he has a raised toilet and cane at home. No previous HHC. LIAM CM to follow-up with patient on Thursday to assist with HHC setup. Disposition Plan: Patient to discharge home with HHC, family support, and follow-up plans in place. Sulma CARBALLO, RN, CM
--- NOTE | 2020-09-15 10:35 | PN.SURG_ITS ---
Patient Problems: Active and Suspected Problems (Last Reviewed 09/14/20 @ 10:[address] Aramis Matthew MD) Bladder cancer (Acute) Incarcerated left inguinal hernia (Acute) Subjective: Patient states abdomen is sore, increased white blood cell count - Physical Exam Vitals/I&O's: Vital Signs Temp Pulse Resp BP Pulse Ox 98.0 F 90 18 118/60 93 09/15/20 09:25 09/15/20 09:25 09/15/20 09:25 09/15/20 09:25 09/15/20 09:25 Oxygen Flow Rate (L/min) 2 Oxygen Delivery Method Room Air Weight: 246 lb Body Mass Index (BMI) 34.2 Intake and Output for Last 24 Hours 09/13/20 09/14/20 09/15/20 23:59 23:59 23:59 Intake Total 2310 / 2310 3637.5 / 3637.5 Output Total 43 / 43 120 / 120 Balance 2267 / 2267 3517.5 / 3517.5 General: Alert, Oriented x3, Cooperative, No apparent distress HEENT: Atraumatic Lungs: Normal air movement Abdomen: Soft, Tender - Near incision dressed clean dry and intact, left groin incision intact with Steri's, SAMANTHA serosanguineous Microbiology Past 72 Hours 09/12/20 14:11 Interface Orders SARS-CoV-2 Antigen (Rapid) - Final Laboratory Results 09/14/20 13:55: Crossmatch See Detail 09/14/20 18:30: WBC 38.4 H*, RBC 3.95 L, Hgb 10.5 L, Hct 34.5 L, MCV 87.3, MCH 26.6 L, MCHC 30.4 L, RDW Std Deviation 46.2 H, RDW Coeff of Jeff 14.5, Plt Count 180, MPV 12.1 H, Differential Comment COMMENT, Diff Path Review February09/14/20 18:30: Sodium 146 H, Potassium 4.7, Chloride 116 H, Carbon Dioxide 19.0 L, Anion Gap 11, BUN 46 H, Creatinine 3.96 H, Estim Creat Clear Calc 15.58, Est GFR (MDRD) Af Amer 19 L, Est GFR (MDRD) Non-Af 16 L, BUN/Creatinine Ratio 11.6, Glucose 166 H, Calcium 7.6 L 09/15/20 07:05: WBC 41.9 H*, RBC 3.73 L, Hgb 10.2 L, Hct 32.5 L, MCV 87.1, MCH 27.3, MCHC 31.4 L, RDW Std Deviation 47.0 H, RDW Coeff of Jeff 14.7 H, Plt Count 132 L, MPV 12.1 H, Differential Comment YES, Diff Path Review February09/15/20 07:05: Sodium 143, Potassium 4.8, Chloride 114 H, Carbon Dioxide 20.0 L , Anion Gap 9, BUN 51 H, Creatinine 4.64 H, Estim Creat Clear Calc 13.30, Est GFR (MDRD) Af Amer 16 L, Est GFR (MDRD) Non-Af 13 L, BUN/Creatinine Ratio 11.0, Glucose 160 H, Calcium 7.9 L Current Medications Acetaminophen (Acetaminophen 325 Mg Tablet) 325 - 650 mg PO Q4H PRN PRN PRN Reason: pain score 1-10/fever/headache Hydrocodone Bitart/Acetaminophen (Hydrocodone Bitartrate/Apap 5/325 Tablet) 1 - 2 tablet PO Q6H PRN PRN PRN Reason: Pain Score 1-5 Docusate Sodium (Docusate Sodium 100 Mg Capsule) 200 mg PO BID [facility] Last Admin: 09/15/20 09:28 Dose: Not Given Documented by: Lactated Ringer's () 1,000 mls @ 150 mls/hr IV .[id number] [facility] Last Admin: 09/15/20 10:05 Dose: Not Given Documented by: Sodium Chloride () 250 mls @ 15 mls/hr IV .[id number] PRN PRN Reason: Saline Flush Sodium Chloride () 250 mls @ 15 mls/hr IV .[id number] PRN PRN Reason: Additional IVPB Infusion Cefotetan Disodium 2 gm/ (Sodium Chloride) 100 mls @ 200 mls/hr IV Q24 [facility] Last Infusion: 09/15/20 10:03 Dose: Infused Documented by: Magnesium Hydroxide (Magnesium Hydroxide 30 Ml Udc) 30 ml PO Q4H PRN PRN PRN Reason: Heartburn Metoclopramide HCl (Metoclopramide 10 Mg/2 Ml Vial) 10 mg IV Q8H PRN PRN PRN Reason: Nausea/vomiting Morphine Sulfate (Morphine 2 Mg/Ml Syringe) 2 mg IV Q2H PRN PRN PRN Reason: Pain Score 6-10 Last Admin: 09/15/20 09:34 Dose: 2 mg Documented by: Ondansetron HCl (Ondansetron 4 Mg/2 Ml Vial) 4 mg IV Q8H PRN PRN Reason: Nausea Sodium Chloride (0.9% Nacl Peripheral Flush Adult/Peds) 5 - 15 ml IV UD PRN PRN Reason: SALINE FLUSH Last Admin: 09/14/20 23:03 Dose: 10 ml Documented by: Medical Necessity - Tobacco Use Smoking Status: Former smoker Assessment/Plan All Active Problems (Last Reviewed 09/14/20 @ 10:[address] Aramis Matthew MD) Bladder tumor (Acute) Bladder cancer (Acute) Incarcerated left inguinal hernia (Acute) Gross hematuria (Acute) Abrasion of right hand, initial encounter (Acute) Contusion of unspecified front wall of thorax, initial encounter (Acute) Left inguinal hernia incision clean dry and intact with Steri's healing well, no further planned intervention per general surgery--management per urology. Irene Campos M.D. Pager: [phone] [facility] [address] [place] [address], [facility], [address] [place] [address] Office: [phone]
[2020-09-15] MEDS: HYDROcodone Bitartrate/Apap 5/325 Tablet PO (11:51)
--- NOTE | 2020-09-15 12:22 | PN_ITS ---
Patient Problems: Active and Suspected Problems (Last Reviewed 09/14/20 @ 10:[address] Aramis Matthew MD) Bladder cancer (Acute) Incarcerated left inguinal hernia (Acute) Subjective: Patient seen and examined. Denies fever, chills. Reports abdominal pain 05/21 involving surgical area. Denies nausea, vomiting. Denies other current complaints. - Physical Exam Vitals/I&O's: Vital Signs Temp Pulse Resp BP Pulse Ox 98.0 F 90 18 118/60 93 09/15/20 09:25 09/15/20 09:25 09/15/20 09:25 09/15/20 09:25 09/15/20 09:25 Oxygen Flow Rate (L/min) 2 Oxygen Delivery Method Room Air Weight: 246 lb Body Mass Index (BMI) 34.2 Intake and Output for Last 24 Hours 09/13/20 09/14/20 09/15/20 23:59 23:59 23:59 Intake Total 2310 / 2310 3637.5 / 3637.5 Output Total 43 / 43 170 / 170 Balance 2267 / 2267 3467.5 / 3467.5 General: Alert, Oriented x3, Cooperative HEENT: Atraumatic, PERRLA, EOMI, Normocephalic Neck: Supple, No JVD, Negative Carotid Bruits Lungs: Clear to auscultation, Normal air movement Cardiovascular: Regular rate, No murmurs Abdomen: Bowel Sounds Present, Soft, Tender, - - Postop abdominal dressings intact Extremities: No clubbing, No cyanosis, No edema, Capillary Refill Less than 3 Seconds Skin: No rashes, No breakdown Musculoskeletal: No Tenderness to Palpation of Joints or Extremities Neurological: Cranial nerves II-XII grossly intact, Neuro grossly intact Psych/Mental Status: Normal Affect, Appropriate Microbiology Past 72 Hours 09/12/20 14:11 Interface Orders SARS-CoV-2 Antigen (Rapid) - Final Laboratory Results 09/14/20 13:55: Crossmatch See Detail 09/14/20 18:30: WBC 38.4 H*, RBC 3.95 L, Hgb 10.5 L, Hct 34.5 L, MCV 87.3, MCH 26.6 L, MCHC 30.4 L, RDW Std Deviation 46.2 H, RDW Coeff of Jeff 14.5, Plt Count 180, MPV 12.1 H, Differential Comment COMMENT, Diff Path Review [facility] 09/14/20 18:30: Sodium 146 H, Potassium 4.7, Chloride 116 H, Carbon Dioxide 19.0 L, Anion Gap 11, BUN 46 H, Creatinine 3.96 H, Estim Creat Clear Calc 15.58, Est GFR (MDRD) Af Amer 19 L, Est GFR (MDRD) Non-Af 16 L, BUN/Creatinine Ratio 11.6, Glucose 166 H, Calcium 7.6 L 09/15/20 07:05: WBC 41.9 H*, RBC 3.73 L, Hgb 10.2 L, Hct 32.5 L, MCV 87.1, MCH 27.3, MCHC 31.4 L, RDW Std Deviation 47.0 H, RDW Coeff of Jeff 14.7 H, Plt Count 132 L, MPV 12.1 H, Differential Comment YES, Diff Path Review [facility] 09/15/20 07:05: Sodium 143, Potassium 4.8, Chloride 114 H, Carbon Dioxide 20.0 L , Anion Gap 9, BUN 51 H, Creatinine 4.64 H, Estim Creat Clear Calc 13.30, Est GFR (MDRD) Af Amer 16 L, Est GFR (MDRD) Non-Af 13 L, BUN/Creatinine Ratio 11.0, Glucose 160 H, Calcium 7.9 L Current Medications Acetaminophen (Acetaminophen 325 Mg Tablet) 325 - 650 mg PO Q4H PRN PRN PRN Reason: pain score 1-10/fever/headache Hydrocodone Bitart/Acetaminophen (Hydrocodone Bitartrate/Apap 5/325 Tablet) 1 - 2 tablet PO Q6H PRN PRN PRN Reason: Pain Score 1-5 Last Admin: 09/15/20 11:51 Dose: 1 tablet Documented by: Docusate Sodium (Docusate Sodium 100 Mg Capsule) 200 mg PO BID [facility] Last Admin: 09/15/20 09:28 Dose: Not Given Documented by: Lactated Ringer's () 1,000 mls @ 150 mls/hr IV .[id number] [facility] Last Admin: 09/15/20 10:05 Dose: Not Given Documented by: Sodium Chloride () 250 mls @ 15 mls/hr IV .[id number] PRN PRN Reason: Saline Flush Sodium Chloride () 250 mls @ 15 mls/hr IV .[id number] PRN PRN Reason: Additional IVPB Infusion Cefotetan Disodium 2 gm/ (Sodium Chloride) 100 mls @ 200 mls/hr IV Q24 [facility] Last Infusion: 09/15/20 10:03 Dose: Infused Documented by: Magnesium Hydroxide (Magnesium Hydroxide 30 Ml Udc) 30 ml PO Q4H PRN PRN PRN Reason: Heartburn Metoclopramide HCl (Metoclopramide 10 Mg/2 Ml Vial) 10 mg IV Q8H PRN PRN PRN Reason: Nausea/vomiting Morphine Sulfate (Morphine 2 Mg/Ml Syringe) 2 mg IV Q2H PRN PRN PRN Reason: Pain Score 6-10 Last Admin: 09/15/20 09:34 Dose: 2 mg Documented by: Ondansetron HCl (Ondansetron 4 Mg/2 Ml Vial) 4 mg IV Q8H PRN PRN Reason: Nausea Sodium Chloride (0.9% Nacl Peripheral Flush Adult/Peds) 5 - 15 ml IV UD PRN PRN Reason: SALINE FLUSH Last Admin: 09/14/20 23:03 Dose: 10 ml Documented by: Medical Necessity - Tobacco Use Smoking Status: Former smoker Assessment/Plan All Active Problems (Last Reviewed 09/14/20 @ 10:[address] Aramis Matthew MD) Bladder tumor (Acute) Bladder cancer (Acute) Incarcerated left inguinal hernia (Acute) Gross hematuria (Acute) Abrasion of right hand, initial encounter (Acute) Contusion of unspecified front wall of thorax, initial encounter (Acute) 1. Leukocytosis-unclear etiology. Afebrile. Possibly reactive. WBC significantly increased following surgery. Will repeat urine culture given recent UTI. Chest x-ray admission unremarkable. Begin cefepime empirically. Will obtain blood cultures. 2. Acute kidney injury on chronic kidney disease stage IV-nephrology consulted. Hold nephrotoxic regimen including losartan. Gentle IV fluids, trend BMP. 3. Invasive bladder cancer-Dr. Matthew following. Underwent laparoscopic robotic assisted radical cystoprostatectomy with formation of ileal conduit 09/14/2020. Management per urology. 4. Incarcerated left inguinal hernia-status post left inguinal hernia repair with mesh 09/14/2020. General surgery following. 5. History of PVCs-asymptomatic. 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 Abbasi, [facility]ology. Continue metoprolol regimen. 6. Hypertension-losartan on hold. Continue metoprolol. 7. Hyperlipidemia-continue statin. DVT prophylaxis-SCDs This patient was seen by YASMEEN Robin under the supervision of Dr. Mosqueda.
--- NOTE | 2020-09-15 17:23 | CON.PCM_ITS ---
Consultation - Renal 09/15/20 PCP/ Referring MD: Requesting physician: [] Primary care physician: Dr. Kim Torres MD Reason for Consultation:: merle - History of Present Illness History of Present Illness: The patient is a 80 year old M w/ pmh as below who underwent yesterday Laparoscopic converted to open radical cystoprostatectomy. Bilateral pelvic lymph node dissection and formation of a ileal conduit. General surgery did a right inguinal hernia repair with mesh. His scr increased todaty to 4.6 from 3.1 3 days ago post op. baseline scr 1.8-2.3 from EMR reviewed. The patient denies seeing a nephr ologist in the past. He has some abdominal pain mostly at the surgical site. He denies shortness of breath at rest. He denies nausea vomiting diarrhea chest pain fever chills. He has a Mcpherson catheter draining bloody fluid. - Allergies Allergies: Allergies atenolol Adverse Reaction (Verified 09/14/20 09:51) hypotension HYPOTENSION tamsulosin [From Flomax] Adverse Reaction (Verified 09/14/20 09:51) PT UNSURE OF REACTION passed out - Current Medications Current Medications: Current Medications Acetaminophen (Acetaminophen 325 Mg Tablet) 325 - 650 mg PO Q4H PRN PRN PRN Reason: pain score 1-10/fever/headache Hydrocodone Bitart/Acetaminophen (Hydrocodone Bitartrate/Apap 5/325 Tablet) 1 - 2 tablet PO Q6H PRN PRN PRN Reason: Pain Score 1-5 Last Admin: 09/15/20 11:51 Dose: 1 tablet Documented by: Docusate Sodium (Docusate Sodium 100 Mg Capsule) 200 mg PO BID [facility] Last Admin: 09/15/20 09:28 Dose: Not Given Documented by: Lactated Ringer's () 1,000 mls @ 150 mls/hr IV .Q6H40M [facility] Last Infusion: 09/15/20 15:17 Dose: 0 mls/hr Documented by: Sodium Chloride () 250 mls @ 15 mls/hr IV .[id number] PRN PRN Reason: Saline Flush Sodium Chloride () 250 mls @ 15 mls/hr IV .[id number] PRN PRN Reason: Additional IVPB Infusion Cefepime HCl 0.5 gm/ Sodium (Chloride) 50 mls @ 100 mls/hr IV Q24 [facility] Last Admin: 09/15/20 15:15 Dose: 100 mls/hr Documented by: Magnesium Hydroxide (Magnesium Hydroxide 30 Ml Udc) 30 ml PO Q4H PRN PRN PRN Reason: Heartburn Metoclopramide HCl (Metoclopramide 10 Mg/2 Ml Vial) 10 mg IV Q8H PRN PRN PRN Reason: Nausea/vomiting Morphine Sulfate (Morphine 2 Mg/Ml Syringe) 2 mg IV Q2H PRN PRN PRN Reason: Pain Score 6-10 Last Admin: 09/15/20 09:34 Dose: 2 mg Documented by: Ondansetron HCl (Ondansetron 4 Mg/2 Ml Vial) 4 mg IV Q8H PRN PRN Reason: Nausea Sodium Chloride (0.9% Nacl Peripheral Flush Adult/Peds) 5 - 15 ml IV UD PRN PRN Reason: SALINE FLUSH Last Admin: 09/14/20 23:03 Dose: 10 ml Documented by: - Past Surgical History Surgical History: TURP - Social History Smoking Status: Former smoker - Family History Maternal History Items: No pertinent history Review of Systems Eyes: Reports: - - ros o/w negative unless noted in the HPI Patient Problems: Active and Suspected Problems (Last Reviewed 09/14/20 @ 10:[address] Aramis Matthew MD) Bladder cancer (Acute) Incarcerated left inguinal hernia (Acute) - Physical Exam Vitals/I&O's: Vital Signs Temp Pulse Resp BP Pulse Ox 98.6 F 107 H 16 99/52 L 98 09/15/20 15:17 09/15/20 15:17 09/15/20 15:17 09/15/20 15:17 09/15/20 15:17 Oxygen Flow Rate (L/min) 2 Oxygen Delivery Method Room Air Weight: 111.584 kg Body Mass Index (BMI) 34.2 Intake and Output for Last 24 Hours 09/13/20 09/14/20 09/15/20 23:59 23:59 23:59 Intake Total 2310 / 2310 4350.0 / 4350.0 Output Total 43 / 43 170 / 170 Balance 2267 / 2267 4180.0 / 4180.0 General: Alert, Cooperative HEENT: Atraumatic, PERRLA, Normocephalic Oral: Moist Mucosa Lungs: Clear to auscultation, Normal air movement Cardiovascular: Regular rate, Regular Rhythm, Normal S1, Normal S2 Abdomen: Bowel Sounds Present, Soft, Obese Extremities: No edema Microbiology Past 72 Hours 09/12/20 14:11 Interface Orders SARS-CoV-2 Antigen (Rapid) - Final Laboratory Results 09/14/20 13:55: Crossmatch See Detail 09/14/20 18:30: WBC 38.4 H*, RBC 3.95 L, Hgb 10.5 L, Hct 34.5 L, MCV 87.3, MCH 26.6 L, MCHC 30.4 L, RDW Std Deviation 46.2 H, RDW Coeff of Jeff 14.5, Plt Count 180, MPV 12.1 H, Differential Comment COMMENT, Diff Path Review February [facility] 09/14/20 18:30: Sodium 146 H, Potassium 4.7, Chloride 116 H, Carbon Dioxide 19.0 L, Anion Gap 11, BUN 46 H, Creatinine 3.96 H, Estim Creat Clear Calc 15.58, Est GFR (MDRD) Af Amer 19 L, Est GFR (MDRD) Non-Af 16 L, BUN/Creatinine Ratio 11.6, Glucose 166 H, Calcium 7.6 L 09/15/20 07:05: WBC 41.9 H*, RBC 3.73 L, Hgb 10.2 L, Hct 32.5 L, MCV 87.1, MCH 27.3, MCHC 31.4 L, RDW Std Deviation 47.0 H, RDW Coeff of Jeff 14.7 H, Plt Count 132 L, MPV 12.1 H, Differential Comment YES, Diff Path Review February [facility] 09/15/20 07:05: Sodium 143, Potassium 4.8, Chloride 114 H, Carbon Dioxide 20.0 L , Anion Gap 9, BUN 51 H, Creatinine 4.64 H, Estim Creat Clear Calc 13.30, Est GFR (MDRD) Af Amer 16 L, Est GFR (MDRD) Non-Af 13 L, BUN/Creatinine Ratio 11.0, Glucose 160 H, Calcium 7.9 L Current Medications Acetaminophen (Acetaminophen 325 Mg Tablet) 325 - 650 mg PO Q4H PRN PRN PRN Reason: pain score 1-10/fever/headache Hydrocodone Bitart/Acetaminophen (Hydrocodone Bitartrate/Apap 5/325 Tablet) 1 - 2 tablet PO Q6H PRN PRN PRN Reason: Pain Score 1-5 Last Admin: 09/15/20 11:51 Dose: 1 tablet Documented by: Docusate Sodium (Docusate Sodium 100 Mg Capsule) 200 mg PO BID [facility] Last Admin: 09/15/20 09:28 Dose: Not Given Documented by: Lactated Ringer's () 1,000 mls @ 150 mls/hr IV .Q6H40M [facility] Last Infusion: 09/15/20 15:17 Dose: 0 mls/hr Documented by: Sodium Chloride () 250 mls @ 15 mls/hr IV .[id number] PRN PRN Reason: Saline Flush Sodium Chloride () 250 mls @ 15 mls/hr IV .[id number] PRN PRN Reason: Additional IVPB Infusion Cefepime HCl 0.5 gm/ Sodium (Chloride) 50 mls @ 100 mls/hr IV Q24 [facility] Last Admin: 09/15/20 15:15 Dose: 100 mls/hr Documented by: Magnesium Hydroxide (Magnesium Hydroxide 30 Ml Udc) 30 ml PO Q4H PRN PRN PRN Reason: Heartburn Metoclopramide HCl (Metoclopramide 10 Mg/2 Ml Vial) 10 mg IV Q8H PRN PRN PRN Reason: Nausea/vomiting Morphine Sulfate (Morphine 2 Mg/Ml Syringe) 2 mg IV Q2H PRN PRN PRN Reason: Pain Score 6-10 Last Admin: 09/15/20 09:34 Dose: 2 mg Documented by: Ondansetron HCl (Ondansetron 4 Mg/2 Ml Vial) 4 mg IV Q8H PRN PRN Reason: Nausea Sodium Chloride (0.9% Nacl Peripheral Flush Adult/Peds) 5 - 15 ml IV UD PRN PRN Reason: SALINE FLUSH Last Admin: 09/14/20 23:03 Dose: 10 ml Documented by: Assessment/Plan All Active Problems (Last Reviewed 09/14/20 @ 10:[address] Aramis Matthew MD) Bladder tumor (Acute) Bladder cancer (Acute) Incarcerated left inguinal hernia (Acute) Gross hematuria (Acute) Abrasion of right hand, initial encounter (Acute) Contusion of unspecified front wall of thorax, initial encounter (Acute) MERLE prerenal/ATN with persistent hypotension CKD baseline creatinine 1.8-2.4 invasive bladder cancer s/p laparoscopic converted to open radical cystoprostatectomy. Bilateral pelvic lymph node dissection and formation of a ileal conduit. s/p right inguinal hernia repair with mesh History of hypertension Recommend gentle IV fluids as you are doing f/u urine cx Check a renal ultrasound Hold losartan Check FENA Further work-up as indicated by clinical course Of assessment and plan was discussed at length with the patient who voiced understanding and agrees To proceed with the plan as outlined above. He was given the opportunity to ask questions and stated that those were answered to his satisfaction. Thank very much for allowing me to participate in the care of this patient. Please do not hesitate to call if you have any questions or concerns.
[2020-09-15 18:20] LABS: Urine Sodium 84 mmol/L (Not Establ.)
[2020-09-15] MEDS: Docusate Sodium 100 MG Capsule 200 MG PO (21:03)
[2020-09-16] VITALS (18 sets, daily range): BP systolic 128–153; BP diastolic 50–82; PULSE 86–115; RESP 18–20; TEMP 36.4–36.9; O2SAT 91–98
--- NOTE | 2020-09-16 00:49 | EKG12_ITS ---
Test Reason : IRREGULAR HEART RATE Blood Pressure : / mmHG Vent. Rate : 116 BPM Atrial Rate : 116 BPM P-R Int : 194 ms QRS Dur : 084 ms QT Int : 312 ms P-R-T Axes : 004 -33 059 degrees QTc Int : 433 ms Sinus tachycardia with frequent and consecutive Premature ventricular complexes Left axis deviation Inferior infarct , age undetermined Abnormal ECG Confirmed by ANDREA GARCIA, GEETHA ([id number]), publishing editor REGINALDO ERNST ([id number]) on 09/19/2020 1:29:53 PM Referred By: Aramis Matthew Confirmed By:GEETHA MENDEZ MD
--- NOTE | 2020-09-16 01:27 | PN_ITS ---
Progress Note Nurse reports that patient has irregular heart rhythm. Instructed to put patient on a playground monitor. EKG ordered. EKG returned with sinus tach with PVC. Check magnesium. Resume home metoprolol at a lower dose. Reportedly because of low blood pressure patient home metoprolol had been discontinued. Place parameters on metoprolol. STROKE Vital Signs/Narrative: Vital Signs Temp Pulse Resp BP Pulse Ox 09/16/20 00:21 98.1 F 110 H 18 135/50 H 91 09/15/20 22:19 98.1 F 78 18 120/58 L 93
[2020-09-16] MEDS: Metoprolol Tartrate 25 MG Tablet 12.5 MG PO ×2 (01:33→07:54)
[2020-09-16] MEDS: Lactated Ringers 1,000 ML 150 ML IV (01:37)
[2020-09-16] MEDS: Morphine 2 MG/ML Syringe IV (02:49)
[2020-09-16 04:09] LABS: Hematocrit 28.8 % (40-54); Hemoglobin 9.1 g/dL (13.0-16.5); Mean Corp Hgb Conc 31.6 g/dL (32-36); Mean Corpuscular Hgb 26.7 pg (27.0-32.0); Mean Corpuscular Volume 84.5 fL (80-94); Platelet Count 120 K/mm3 (150-450); RBC Distribution Width CV 14.9 % (11.6-14.6); Red Blood Count 3.41 M/mm3 (4.6-6.2); White Blood Count 29.3 K/mm3 (4.4-11.0)
[2020-09-16 04:46] LABS: Anion Gap 7 (5-15); BUN 57 mg/dL (7-18); BUN/Creat Ratio 10.7 RATIO (10-20); Calcium,Total 8.1 mg/dL (8.5-10.1); Chloride 113 mmol/L (98-107); Creatinine, Serum 5.33 mg/dL (0.70-1.30); EST Glomerular Filtration Rate 11 mL/min (>60); Est Glom Filt Rate - Afr Amer 13 mL/min (>60); Estimated Creatinine Clearance 11.58 ml/min; Glucose 125 mg/dL (74-106); Magnesium 1.8 mg/dL (1.6-2.6); Potassium 4.5 mmol/L (3.5-5.1); Sodium Level 140 mmol/L (136-145)
[2020-09-16] MEDS: Ondansetron 4 MG/2 ML Vial IV (07:02)
[2020-09-16] MEDS: Docusate Sodium 100 MG Capsule 200 MG PO (07:54)
--- NOTE | 2020-09-16 08:08 | RAD_ITS ---
STUDY: X-RAY - ABDOMEN/PELVIS REASON FOR EXAM: Male, 80 years old. NG TUBE PLACEMENT TECHNIQUE: Single AP view of the abdomen / pelvis. COMPARISON: None. FINDINGS: Enteric tube tip is in the region of the gastroesophageal junction, advanced on a later radiograph. Findings concerning for bowel obstruction with dilated loops of bowel seen throughout the abdomen. Normal soft tissue structures. Normal visualized osseous structures. RAD/Abdomen Single View IMPRESSION: Enteric tube tip is in the region of the gastroesophageal junction, advanced on a later radiograph. Findings concerning for bowel obstruction with dilated loops of bowel seen throughout the abdomen. Electronically Signed: Octavio Vidal, at 11:02 EST Tel , Service support ,
--- NOTE | 2020-09-16 08:17 | PN_ITS ---
Patient Problems: Active and Suspected Problems (Last Reviewed 09/14/20 @ 10:[address] Aramis Matthew MD) Bladder cancer (Acute) Incarcerated left inguinal hernia (Acute) - Physical Exam Vitals/I&O's: Vital Signs Temp Pulse Resp BP Pulse Ox 97.9 F 102 H 18 143/75 H 94 09/16/20 07:50 09/16/20 07:54 09/16/20 07:50 09/16/20 07:50 09/16/20 07:50 Oxygen Flow Rate (L/min) 2 Oxygen Delivery Method Room Air Weight: 111.584 kg Body Mass Index (BMI) 34.2 Intake and Output for Last 24 Hours 09/14/20 09/15/20 09/16/20 23:59 23:59 23:59 Intake Total 2310 / 2310 5214.58 / 5274.58 1845.0 / 1845.0 Output Total 43 / 43 270 / 345 435 / 435 Balance 2267 / 2267 4944.58 / 4929.58 1410.0 / 1410.0 Laboratory Results 09/15/20 07:05: Sodium 143, Potassium 4.8, Chloride 114 H, Carbon Dioxide 20.0 L , Anion Gap 9, BUN 51 H, Creatinine 4.64 H, Estim Creat Clear Calc 13.30, Est GFR (MDRD) Af Amer 16 L, Est GFR (MDRD) Non-Af 13 L, BUN/Creatinine Ratio 11.0, Glucose 160 H, Calcium 7.9 L 09/15/20 17:40: Ur Random Sodium 84, Urine Creatinine 172.00 09/16/20 04:00: WBC 29.3 H, RBC 3.41 L, Hgb 9.1 L, Hct 28.8 L, MCV 84.5, MCH 26.7 L, MCHC 31.6 L, RDW Std Deviation 46.0 H, RDW Coeff of Jeff 14.9 H, Plt Count 120 L, MPV 12.0 09/16/20 04:00: Sodium 140, Potassium 4.5, Chloride 113 H, Carbon Dioxide 20.0 L , Anion Gap 7, BUN 57 H, Creatinine 5.33 H, Estim Creat Clear Calc 11.58, Est GFR (MDRD) Af Amer 13 L, Est GFR (MDRD) Non-Af 11 L, BUN/Creatinine Ratio 10.7, Glucose 125 H, Calcium 8.1 L, Magnesium 1.8 Current Medications Acetaminophen (Acetaminophen 325 Mg Tablet) 325 - 650 mg PO Q4H PRN PRN PRN Reason: pain score 1-10/fever/headache Hydrocodone Bitart/Acetaminophen (Hydrocodone Bitartrate/Apap 5/325 Tablet) 1 - 2 tablet PO Q6H PRN PRN PRN Reason: Pain Score 1-5 Last Admin: 09/15/20 11:51 Dose: 1 tablet Documented by: Docusate Sodium (Docusate Sodium 100 Mg Capsule) 200 mg PO BID [facility] Last Admin: 09/16/20 07:54 Dose: 200 mg Documented by: Lactated Ringer's () 1,000 mls @ 125 mls/hr IV .Q8H [facility] Last Infusion: 09/16/20 07:20 Dose: 0 mls/hr Documented by: Sodium Chloride () 250 mls @ 15 mls/hr IV .[id number] PRN PRN Reason: Saline Flush Sodium Chloride () 250 mls @ 15 mls/hr IV .[id number] PRN PRN Reason: Additional IVPB Infusion Cefepime HCl 0.5 gm/ Sodium (Chloride) 50 mls @ 100 mls/hr IV Q24 [facility] Last Infusion: 09/15/20 15:45 Dose: Infused Documented by: Magnesium Sulfate 2 gm/ Sodium (Chloride) 104 mls @ 52 mls/hr IV X1 ONE Stop: 09/16/20 08:29 Last Admin: 09/16/20 07:23 Dose: 52 mls/hr Documented by: Magnesium Hydroxide (Magnesium Hydroxide 30 Ml Udc) 30 ml PO Q4H PRN PRN PRN Reason: Heartburn Metoclopramide HCl (Metoclopramide 10 Mg/2 Ml Vial) 10 mg IV Q8H PRN PRN PRN Reason: Nausea/vomiting Metoprolol Tartrate (Metoprolol Tartrate 25 Mg Tablet) 12.5 mg PO BID [facility] Last Admin: 09/16/20 07:54 Dose: 12.5 mg Documented by: Morphine Sulfate (Morphine 2 Mg/Ml Syringe) 2 mg IV Q2H PRN PRN PRN Reason: Pain Score 6-10 Last Admin: 09/16/20 02:49 Dose: 2 mg Documented by: Ondansetron HCl (Ondansetron 4 Mg/2 Ml Vial) 4 mg IV Q8H PRN PRN Reason: Nausea Last Admin: 09/16/20 07:02 Dose: 4 mg Documented by: Sodium Chloride (0.9% Nacl Peripheral Flush Adult/Peds) 5 - 15 ml IV UD PRN PRN Reason: SALINE FLUSH Last Admin: 09/14/20 23:03 Dose: 10 ml Documented by: Medical Necessity - Tobacco Use Smoking Status: Former smoker Assessment/Plan All Active Problems (Last Reviewed 09/14/20 @ 10:[address] Aramis Matthew MD) Bladder tumor (Acute) Bladder cancer (Acute) Incarcerated left inguinal hernia (Acute) Gross hematuria (Acute) Abrasion of right hand, initial encounter (Acute) Contusion of unspecified front wall of thorax, initial encounter (Acute)
--- NOTE | 2020-09-16 08:28 | PN_ITS ---
Patient Problems: Active and Suspected Problems (Last Reviewed 09/14/20 @ 10:[address] Aramis Matthew MD) Bladder cancer (Acute) Incarcerated left inguinal hernia (Acute) Subjective: 80-year-old male postop day #2 status post radical cystoprostatectomy formation of ileal conduit. Postoperative day #1 he had a very low urine output prior to surgery his creatinine was about 3. Some hypotension during surgery and his creatinine is now back up to 5 and his urine output was low but now fortunately his urine output is picking up the last 12 hours he is at 325 cc out so an improvement in his urine output. Yesterday his belly was nice and flat and smooth this morning he is now distended. He has not passed any gas. He does have rumbling bowel sounds. We will decompress his abdomen with NG tube for now until he passes gas and his bowels return to full function. White blood count is down which is good rehab on broad-spectrum antibiotics. No clear signs of source for infection while to monitor the wounds. Objective: On exam he looks slightly in distress breathing heavy denies any chest pain or shortness of breath. His abdomen is soft but this distended tender in the midline tender throughout but no peritoneal signs. Has good and rumbling bowel sounds but is very distended soft will decompress with NG tube for now. Lower extremities SCDs in place no signs of swelling. Mcpherson catheter in place. Drainage is serosanguineous. SAMANTHA drainage serosanguineous. Ileostomy looks clean and healthy dark yellow urine. Midline incision is intact and clean some bruising but no signs of infection. - Physical Exam Vitals/I&O's: Vital Signs Temp Pulse Resp BP Pulse Ox 97.9 F 102 H 18 143/75 H 94 09/16/20 07:50 09/16/20 07:54 09/16/20 07:50 09/16/20 07:50 09/16/20 07:50 Oxygen Flow Rate (L/min) 2 Oxygen Delivery Method Room Air Weight: 111.584 kg Body Mass Index (BMI) 34.2 Intake and Output for Last 24 Hours 09/14/20 09/15/20 09/16/20 23:59 23:59 23:59 Intake Total 2310 / 2310 5214.58 / 5274.58 1845.0 / 1845.0 Output Total 43 / 43 270 / 345 435 / 435 Balance 2267 / 2267 4944.58 / 4929.58 1410.0 / 1410.0 Laboratory Results 09/15/20 17:40: Ur Random Sodium 84, Urine Creatinine 172.00 09/16/20 04:00: WBC 29.3 H, RBC 3.41 L, Hgb 9.1 L, Hct 28.8 L, MCV 84.5, MCH 26.7 L, MCHC 31.6 L, RDW Std Deviation 46.0 H, RDW Coeff of Jeff 14.9 H, Plt Count 120 L, MPV 12.0 09/16/20 04:00: Sodium 140, Potassium 4.5, Chloride 113 H, Carbon Dioxide 20.0 L , Anion Gap 7, BUN 57 H, Creatinine 5.33 H, Estim Creat Clear Calc 11.58, Est GFR (MDRD) Af Amer 13 L, Est GFR (MDRD) Non-Af 11 L, BUN/Creatinine Ratio 10.7, Glucose 125 H, Calcium 8.1 L, Magnesium 1.8 Current Medications Acetaminophen (Acetaminophen 325 Mg Tablet) 325 - 650 mg PO Q4H PRN PRN PRN Reason: pain score 1-10/fever/headache Hydrocodone Bitart/Acetaminophen (Hydrocodone Bitartrate/Apap 5/325 Tablet) 1 - 2 tablet PO Q6H PRN PRN PRN Reason: Pain Score 1-5 Last Admin: 09/15/20 11:51 Dose: 1 tablet Documented by: Docusate Sodium (Docusate Sodium 100 Mg Capsule) 200 mg PO BID [facility] Last Admin: 09/16/20 07:54 Dose: 200 mg Documented by: Lactated Ringer's () 1,000 mls @ 125 mls/hr IV .Q8H [facility] Last Infusion: 09/16/20 07:20 Dose: 0 mls/hr Documented by: Sodium Chloride () 250 mls @ 15 mls/hr IV .[id number] PRN PRN Reason: Saline Flush Sodium Chloride () 250 mls @ 15 mls/hr IV .[id number] PRN PRN Reason: Additional IVPB Infusion Cefepime HCl 0.5 gm/ Sodium (Chloride) 50 mls @ 100 mls/hr IV Q24 [facility] Last Infusion: 09/15/20 15:45 Dose: Infused Documented by: Magnesium Sulfate 2 gm/ Sodium (Chloride) 104 mls @ 52 mls/hr IV X1 ONE Stop: 09/16/20 08:29 Last Admin: 09/16/20 07:23 Dose: 52 mls/hr Documented by: Magnesium Hydroxide (Magnesium Hydroxide 30 Ml Udc) 30 ml PO Q4H PRN PRN PRN Reason: Heartburn Metoclopramide HCl (Metoclopramide 10 Mg/2 Ml Vial) 10 mg IV Q8H PRN PRN PRN Reason: Nausea/vomiting Metoprolol Tartrate (Metoprolol Tartrate 25 Mg Tablet) 12.5 mg PO BID [facility] Last Admin: 09/16/20 07:54 Dose: 12.5 mg Documented by: Morphine Sulfate (Morphine 2 Mg/Ml Syringe) 2 mg IV Q2H PRN PRN PRN Reason: Pain Score 6-10 Last Admin: 09/16/20 02:49 Dose: 2 mg Documented by: Ondansetron HCl (Ondansetron 4 Mg/2 Ml Vial) 4 mg IV Q8H PRN PRN Reason: Nausea Last Admin: 09/16/20 07:02 Dose: 4 mg Documented by: Sodium Chloride (0.9% Nacl Peripheral Flush Adult/Peds) 5 - 15 ml IV UD PRN PRN Reason: SALINE FLUSH Last Admin: 09/14/20 23:03 Dose: 10 ml Documented by: Medical Necessity - Tobacco Use Smoking Status: Former smoker Assessment/Plan All Active Problems (Last Reviewed 09/14/20 @ 10:[address] Aramis Matthew MD) Bladder tumor (Acute) Bladder cancer (Acute) Incarcerated left inguinal hernia (Acute) Gross hematuria (Acute) Abrasion of right hand, initial encounter (Acute) Contusion of unspecified front wall of thorax, initial encounter (Acute) 80-year-old male status post cystoprostatectomy for invasive bladder cancer has a difficult postoperative course with acute renal insufficiency probably ATN nephrology was consulted hopefully no dialysis service will be necessary. Urine output is picked up in the last 24 hours which is good creatinine is still high but hopefully will start to come down as his urine output improved and his kidney function improves. White blood count is coming down which is good very high white blood count with no fevers no signs of infection. We will continue to monitor. I do not suspect a bowel injury. He did have a Ignacio incarcerated hernia reduced but this went smoothly. For now given NG tube will do a Dulcolax suppository and start Lovenox subcu for DVT prophylaxis. He can be out of bed but still too weak to ambulate.
--- NOTE | 2020-09-16 08:45 | RAD_ITS ---
STUDY: X-RAY - ABDOMEN/PELVIS REASON FOR EXAM: Male, 80 years old. NG TUBE PLACEMENT #2 -- TUBE ADJUSTED AND ANOTHER XRAY TAKEN TECHNIQUE: Single AP view of the abdomen / pelvis. COMPARISON: Earlier same day. FINDINGS: Enteric tube tip is in the region of the gastroesophageal junction, advanced into appropriate position on a subsequent radiograph. Findings concerning for bowel obstruction with dilated loops of bowel seen throughout the abdomen. Partially visualized right ureteral stent. Normal soft tissue structures. Normal visualized osseous structures. RAD/Abdomen Single View (Portable) IMPRESSION: Enteric tube tip is in the region of the gastroesophageal junction, advanced into appropriate position on a subsequent radiograph. Findings concerning for small bowel obstruction with dilated loops of bowel seen throughout the abdomen. Electronically Signed: Octavio Vidal, at 16:19 EST Tel , Service support ,
--- NOTE | 2020-09-16 08:50 | RAD_ITS ---
STUDY: X-RAY - ABDOMEN/PELVIS REASON FOR EXAM: Male, 80 years old. NG TUBE PLACEMENT #3 -- TUBE ADJUSTED AND ANOTHER XRAY TAKEN TECHNIQUE: Single AP view of the abdomen / pelvis. COMPARISON: Earlier same day. FINDINGS: Enteric tube tip is in the region of the gastroesophageal junction, advanced into appropriate position on a subsequent radiograph. Findings concerning for bowel obstruction with dilated loops of bowel seen throughout the abdomen. Normal soft tissue structures. Normal visualized osseous structures. RAD/Abdomen Single View (Portable) IMPRESSION: Enteric tube tip is in the region of the gastroesophageal junction, advanced into appropriate position on a subsequent radiograph. Findings concerning for small bowel obstruction with dilated loops of bowel seen throughout the abdomen. Electronically Signed: Octavio Vidal, at 13:01 EST Tel , Service support ,
--- NOTE | 2020-09-16 09:00 | RAD_ITS ---
STUDY: X-RAY - ABDOMEN/PELVIS REASON FOR EXAM: Male, 80 years old. NG TUBE PLACEMENT #4 -- RECENT ROBOTIC CYST PROSTATECTOMY TECHNIQUE: Single AP view of the abdomen / pelvis. COMPARISON: Earlier same day. FINDINGS: Question patchy left base opacity. Enteric tube tip within the stomach. Partially visualized dilated large and small bowel. No gross evidence for free air. Normal soft tissue structures. Normal visualized osseous structures. RAD/Abdomen Single View (Portable) IMPRESSION: Enteric tube tip within the stomach. Partially visualized dilated large and small bowel may be consistent with ileus versus obstruction as clinically indicated. Electronically Signed: Octavio Vidal, at 10:33 EST Tel , Service support ,
[2020-09-16] MEDS: Bisacodyl 10 MG Suppository RECTAL (09:56)
[2020-09-16] MEDS: Lactated Ringers 1,000 ML 125 ML IV ×2 (09:56→19:40)
[2020-09-16] MEDS: Enoxaparin 30 MG/0.3 ML Syringe SC (09:56)
--- NOTE | 2020-09-16 12:23 | PCM.PROGNOTE ---
Patient Problems: Active and Suspected Problems (Last Reviewed 09/14/20 @ 10:[address] Aramis Matthew MD) Bladder cancer (Acute) Incarcerated left inguinal hernia (Acute) Subjective: Patient seen and examined. Resting comfortably in bed at this time. NG in place. - Physical Exam Vitals/I&O's: Vital Signs Temp Pulse Resp BP Pulse Ox 97.9 F 102 H 18 143/75 H 94 09/16/20 07:50 09/16/20 07:54 09/16/20 07:50 09/16/20 07:50 09/16/20 07:50 Oxygen Flow Rate (L/min) 2 Oxygen Delivery Method Room Air Weight: 246 lb Body Mass Index (BMI) 34.2 Intake and Output for Last 24 Hours 09/14/20 09/15/20 09/16/20 23:59 23:59 23:59 Intake Total 2310 / 2310 5214.58 / 5274.58 2137.75 / 2137.75 Output Total 43 / 43 270 / 345 1685 / 1685 Balance 2267 / 2267 4944.58 / 4929.58 452.75 / 452.75 General: Alert, Cooperative, No apparent distress HEENT: Atraumatic, PERRLA, EOMI, Normocephalic Oral: Dry Mucosa Neck: Supple, No JVD, Negative Carotid Bruits Lungs: Clear to auscultation, Diminished Cardiovascular: Regular rate, No murmurs Abdomen: Bowel Sounds Present, Soft, Non Tender, Non-Distended, - - Postop dressings intact Extremities: No clubbing, No cyanosis, No edema, Capillary Refill Less than 3 Seconds Skin: No rashes, No breakdown Musculoskeletal: No Tenderness to Palpation of Joints or Extremities Neurological: Cranial nerves II-XII grossly intact, Neuro grossly intact Psych/Mental Status: Normal Affect, Appropriate Laboratory Results 09/15/20 17:40: Ur Random Sodium 84, Urine Creatinine 172.00 09/16/20 04:00: WBC 29.3 H, RBC 3.41 L, Hgb 9.1 L, Hct 28.8 L, MCV 84.5, MCH 26.7 L, MCHC 31.6 L, RDW Std Deviation 46.0 H, RDW Coeff of Jeff 14.9 H, Plt Count 120 L, MPV 12.0 09/16/20 04:00: Sodium 140, Potassium 4.5, Chloride 113 H, Carbon Dioxide 20.0 L, Anion Gap 7, BUN 57 H, Creatinine 5.33 H, Estim Creat Clear Calc 11.58, Est GFR (MDRD) Af Amer 13 L, Est GFR (MDRD) Non-Af 11 L, BUN/Creatinine Ratio 10.7, Glucose 125 H, Calcium 8.1 L, Magnesium 1.8 Current Medications Acetaminophen (Acetaminophen 325 Mg Tablet) 325 - 650 mg PO Q4H PRN PRN PRN Reason: pain score 1-10/fever/headache Hydrocodone Bitart/Acetaminophen (Hydrocodone Bitartrate/Apap 5/325 Tablet) 1 - 2 tablet PO Q6H PRN PRN PRN Reason: Pain Score 1-5 Last Admin: 09/15/20 11:51 Dose: 1 tablet Documented by: Docusate Sodium (Docusate Sodium 100 Mg Capsule) 200 mg PO BID COUNTS INCLUDE 234 BEDS AT THE [facility] Last Admin: 09/16/20 07:54 Dose: 200 mg Documented by: Enoxaparin Sodium (Enoxaparin 30 Mg/0.3 Ml Syringe) 30 mg SC DAILY COUNTS INCLUDE 234 BEDS AT THE [facility] Last Admin: 09/16/20 09:56 Dose: 30 mg Documented by: Lactated Ringer's () 1,000 mls @ 125 mls/hr IV .Q8H COUNTS INCLUDE 234 BEDS AT THE [facility] Last Infusion: 09/16/20 10:45 Dose: 125 mls/hr Documented by: Sodium Chloride () 250 mls @ 15 mls/hr IV .[id number] PRN PRN Reason: Saline Flush Sodium Chloride () 250 mls @ 15 mls/hr IV .[id number] PRN PRN Reason: Additional IVPB Infusion Cefepime HCl 0.5 gm/ Sodium (Chloride) 50 mls @ 100 mls/hr IV Q24 COUNTS INCLUDE 234 BEDS AT THE [facility] Last Infusion: 09/16/20 10:26 Dose: Infused Documented by: Magnesium Hydroxide (Magnesium Hydroxide 30 Ml Udc) 30 ml PO Q4H PRN PRN PRN Reason: Heartburn Metoclopramide HCl (Metoclopramide 10 Mg/2 Ml Vial) 10 mg IV Q8H PRN PRN PRN Reason: Nausea/vomiting Metoprolol Tartrate (Metoprolol Tartrate 25 Mg Tablet) 12.5 mg PO BID COUNTS INCLUDE 234 BEDS AT THE [facility] Last Admin: 09/16/20 07:54 Dose: 12.5 mg Documented by: Morphine Sulfate (Morphine 2 Mg/Ml Syringe) 2 mg IV Q2H PRN PRN PRN Reason: Pain Score 6-10 Last Admin: 09/16/20 02:49 Dose: 2 mg Documented by: Ondansetron HCl (Ondansetron 4 Mg/2 Ml Vial) 4 mg IV Q8H PRN PRN Reason: Nausea Last Admin: 09/16/20 07:02 Dose: 4 mg Documented by: Sodium Chloride (0.9% Nacl Peripheral Flush Adult/Peds) 5 - 15 ml IV UD PRN PRN Reason: SALINE FLUSH Last Admin: 09/14/20 23:03 Dose: 10 ml Documented by: Medical Necessity - Tobacco Use Smoking Status: Former smoker Assessment/Plan All Active Problems (Last Reviewed 09/14/20 @ 10:[address] Aramis Matthew MD) Bladder tumor (Acute) Bladder cancer (Acute) Incarcerated left inguinal hernia (Acute) Gross hematuria (Acute) Abrasion of right hand, initial encounter (Acute) Contusion of unspecified front wall of thorax, initial encounter (Acute) 1. Leukocytosis-unclear etiology. Afebrile. Possibly reactive. WBC significantly increased following surgery. Will repeat urine culture given recent UTI. Chest x-ray admission unremarkable. Continue cefepime empirically. Blood cultures pending. Leukocytosis significantly improved. 2. Acute kidney injury on chronic kidney disease stage IV-nephrology consulted. Hold nephrotoxic regimen including losartan. Gentle IV fluids, trend BMP. Renal ultrasound ordered. 3. Invasive bladder cancer-Dr. Matthew following. Underwent laparoscopic robotic assisted radical cystoprostatectomy with formation of ileal conduit 09/14/2020. Management per urology. 4. Incarcerated left inguinal hernia-status post left inguinal hernia repair with mesh 09/14/2020. General surgery following. 5. History of PVCs-asymptomatic. 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 Abbasi, [facility] cardiology. Continue metoprolol regimen. 6. Hypertension-losartan on hold. Continue metoprolol. 7. Hyperlipidemia-continue statin. DVT prophylaxis-SCDs This patient was seen by YASMEEN Robin under the supervision of Dr. Mosqueda.
[2020-09-16] MEDS: Metoprolol Tartrate 25 MG Tablet 12.5 MG NG (14:00)
--- NOTE | 2020-09-16 15:41 | PN.RENAL_ITS ---
Patient Problems: Active and Suspected Problems (Last Reviewed 09/14/20 @ 10:[address] Aramis Matthew MD) Bladder cancer (Acute) Incarcerated left inguinal hernia (Acute) Subjective: now with ngt no sob/cp no c/o - Physical Exam Vitals/I&O's: Vital Signs Temp Pulse Resp BP Pulse Ox 98.1 F 103 H 18 148/82 H 98 09/16/20 15:06 09/16/20 15:06 09/16/20 15:06 09/16/20 15:06 09/16/20 15:06 Oxygen Flow Rate (L/min) 2 Oxygen Delivery Method Room Air Weight: 111.584 kg Body Mass Index (BMI) 34.2 Intake and Output for Last 24 Hours 09/14/20 09/15/20 09/16/20 23:59 23:59 23:59 Intake Total 2310 / 2310 5214.58 / 5274.58 2137.75 / 2137.75 Output Total 43 / 43 270 / 345 1685 / 1685 Balance 2267 / 2267 4944.58 / 4929.58 452.75 / 452.75 General: Alert, Cooperative HEENT: Atraumatic, Normocephalic Oral: Moist Mucosa, - - ngt Neck: Supple, Trachea Midline Lungs: Clear to auscultation, Normal air movement Cardiovascular: Regular rate, Regular Rhythm, Normal S1, Normal S2 Abdomen: Bowel Sounds Present, Soft, Obese, Tender Extremities: No edema Microbiology Past 72 Hours 09/15/20 13:40 Urine Catheter - Mcpherson Urine Culture - Preliminary Culture exhibits no growth. Laboratory Results 09/15/20 17:40: Ur Random Sodium 84, Urine Creatinine 172.00 09/16/20 04:00: WBC 29.3 H, RBC 3.41 L, Hgb 9.1 L, Hct 28.8 L, MCV 84.5, MCH 26.7 L, MCHC 31.6 L, RDW Std Deviation 46.0 H, RDW Coeff of Jeff 14.9 H, Plt Count 120 L, MPV 12.0 09/16/20 04:00: Sodium 140, Potassium 4.5, Chloride 113 H, Carbon Dioxide 20.0 L , Anion Gap 7, BUN 57 H, Creatinine 5.33 H, Estim Creat Clear Calc 11.58, Est GFR (MDRD) Af Amer 13 L, Est GFR (MDRD) Non-Af 11 L, BUN/Creatinine Ratio 10.7, Glucose 125 H, Calcium 8.1 L, Magnesium 1.8 Current Medications Acetaminophen (Acetaminophen 325 Mg Tablet) 325 - 650 mg PO Q4H PRN PRN PRN Reason: pain score 1-10/fever/headache Hydrocodone Bitart/Acetaminophen (Hydrocodone Bitartrate/Apap 5/325 Tablet) 1 - 2 tablet PO Q6H PRN PRN PRN Reason: Pain Score 1-5 Last Admin: 09/15/20 11:51 Dose: 1 tablet Documented by: Docusate Sodium (Docusate Sodium 100 Mg Capsule) 200 mg PO BID [facility] Last Admin: 09/16/20 07:54 Dose: 200 mg Documented by: Enoxaparin Sodium (Enoxaparin 30 Mg/0.3 Ml Syringe) 30 mg SC DAILY [facility] Last Admin: 09/16/20 09:56 Dose: 30 mg Documented by: Lactated Ringer's () 1,000 mls @ 125 mls/hr IV .Q8H [facility] Last Infusion: 09/16/20 10:45 Dose: 125 mls/hr Documented by: Sodium Chloride () 250 mls @ 15 mls/hr IV .[id number] PRN PRN Reason: Saline Flush Sodium Chloride () 250 mls @ 15 mls/hr IV .[id number] PRN PRN Reason: Additional IVPB Infusion Cefepime HCl 0.5 gm/ Sodium (Chloride) 50 mls @ 100 mls/hr IV Q24 [facility] Last Infusion: 09/16/20 10:26 Dose: Infused Documented by: Magnesium Hydroxide (Magnesium Hydroxide 30 Ml Udc) 30 ml PO Q4H PRN PRN PRN Reason: Heartburn Metoclopramide HCl (Metoclopramide 10 Mg/2 Ml Vial) 10 mg IV Q8H PRN PRN PRN Reason: Nausea/vomiting Metoprolol Tartrate (Metoprolol Tartrate 25 Mg Tablet) 25 mg NG BID [facility] Morphine Sulfate (Morphine 2 Mg/Ml Syringe) 2 mg IV Q2H PRN PRN PRN Reason: Pain Score 6-10 Last Admin: 09/16/20 02:49 Dose: 2 mg Documented by: Ondansetron HCl (Ondansetron 4 Mg/2 Ml Vial) 4 mg IV Q8H PRN PRN Reason: Nausea Last Admin: 09/16/20 07:02 Dose: 4 mg Documented by: Sodium Chloride (0.9% Nacl Peripheral Flush Adult/Peds) 5 - 15 ml IV UD PRN PRN Reason: SALINE FLUSH Last Admin: 09/14/20 23:03 Dose: 10 ml Documented by: Medical Necessity - Tobacco Use Smoking Status: Former smoker Assessment/Plan All Active Problems (Last Reviewed 09/14/20 @ 10:[address] Aramis Matthew MD) Bladder tumor (Acute) Bladder cancer (Acute) Incarcerated left inguinal hernia (Acute) Gross hematuria (Acute) Abrasion of right hand, initial encounter (Acute) Contusion of unspecified front wall of thorax, initial encounter (Acute) MERLE prerenal/ATN with persistent hypotension CKD baseline creatinine 1.8-2.4 invasive bladder cancer s/p laparoscopic converted to open radical cystoprostatectomy. Bilateral pelvic lymph node dissection and formation of a ileal conduit. s/p right inguinal hernia repair with mesh History of hypertension Scr 5.3 worse monitor continue gentle IV fluids f/u urine cx f/u renal ultrasound Hold losartan avoid nephrotoxins Further work-up as indicated by clinical course d/w patient
[2020-09-16 18:27] LABS: Magnesium 2.3 mg/dL (1.6-2.6)
[2020-09-16] MEDS: Metoprolol Tartrate 25 MG Tablet NG (21:25)
[2020-09-17] VITALS (13 sets, daily range): BP systolic 93–152; BP diastolic 55–79; PULSE 89–101; RESP 16–18; TEMP 36.6–36.7; O2SAT 94–98
[2020-09-17] MEDS: Lactated Ringers 1,000 ML 125 ML IV ×3 (03:26→20:03)
[2020-09-17 06:24] LABS: Hemoglobin 9.5 g/dL (13.0-16.5); Mean Corp Hgb Conc 31.7 g/dL (32-36); Mean Corpuscular Hgb 27.2 pg (27.0-32.0); Mean Platelet Vol. 12.6 fl (6.2-12.0); Platelet Count 108 K/mm3 (150-450); RBC Distribution Width CV 15.2 % (11.6-14.6); Red Blood Count 3.49 M/mm3 (4.6-6.2); White Blood Count 18.1 K/mm3 (4.4-11.0)
[2020-09-17 06:49] LABS: Anion Gap 9 (5-15); BUN 60 mg/dL (7-18); BUN/Creat Ratio 13.2 RATIO (10-20); Calcium,Total 8.3 mg/dL (8.5-10.1); Chloride 114 mmol/L (98-107); Creatinine, Serum 4.54 mg/dL (0.70-1.30); EST Glomerular Filtration Rate 13 mL/min (>60); Est Glom Filt Rate - Afr Amer 16 mL/min (>60); Estimated Creatinine Clearance 13.59 ml/min; Glucose 92 mg/dL (74-106); Potassium 4.6 mmol/L (3.5-5.1); Sodium Level 143 mmol/L (136-145)
--- NOTE | 2020-09-17 07:30 | US_ITS ---
STUDY: RENAL ULTRASOUND - COMPLETE REASON FOR EXAM: Male, 80 years old. MERLE TECHNIQUE: Ultrasound evaluation of the kidneys was performed with real-time and static zimmerman-scale imaging. COMPARISON: Comparison is made with prior study of 12/12/2019. FINDINGS: RIGHT KIDNEY: Normal location of the right kidney, which is normal in size. The right kidney measures 13.4 cm x 5 cm x 5.2 cm. There is a normal cortex of the right kidney. The renal cortex measures 1.9 cm. There is no right renal mass or cyst. There are no right renal calculi. There is moderate hydronephrosis of the right kidney. DISTAL RIGHT URETER: There is non-visualization of the distal right ureter. There is no demonstrated right ureterovesical junction calculus. There is no demonstrated right ureteral jet. LEFT KIDNEY: Normal location of the left kidney, which is normal in size. The left kidney measures 13.3 cm x 11.1 cm x 7.5 cm. There is a normal cortex of the left kidney. The renal cortex measures 0.9 cm. There is no left renal mass or cyst. There are no left renal calculi. There is severe hydronephrosis of the left kidney. DISTAL LEFT URETER: There is non-visualization of the distal left ureter. There is no demonstrated left ureterovesical junction calculus. There is no demonstrated left ureteral jet. BLADDER: The bladder has been surgically removed. US/Kidney and Bladder IMPRESSION: Bilateral hydronephrosis left worse than right. Electronically Signed: Jesus Carver, at 13:47 EST , Service support ,
--- NOTE | 2020-09-17 07:35 | PCM.PROGNOTE ---
Patient Problems: Active and Suspected Problems (Last Reviewed 09/14/20 @ 10:[address] Aramis Matthew MD) Bladder cancer (Acute) Incarcerated left inguinal hernia (Acute) Subjective: Postoperative day #3 status post open formation of an ileal conduit and radical cystoprostatectomy. Postoperative course was complicated by acute renal insufficiency acute renal failure on chronic renal failure. Fortunately his urine output has not picked up he has had an steady output of urine. Continue with gentle hydration. Hemoglobin is stable he did get a unit of blood but no more. White blood count did spike up super high after surgery on the dickens stress response? But at this point his white count is slowly trending down he is on broad-spectrum antibiotics for coverage. Heart rate is stable. Blood pressure stable. He has developed an ileus and yesterday his abdomen became very distended so we placed an NG tube which is on decompression has not passed flatus. Yesterday had a lot of rumbling bowel sounds today is lot more quiet but his belly is a lot more soft but still denies passing gas. Objective: He is alert and oriented x3 in no acute distress NG tube in place is bothering him. His incision is clean and intact with mild bruising but no signs of infection. SAMANTHA drain is in place. Mcpherson catheter was removed as it stopped draining this was only a drain not in the bladder etc. Extremities normal no clubbing or cyanosis. He still in bed. SCDs are in place. Abdomen is soft benign very few bowel sounds. - Physical Exam Vitals/I&O's: Vital Signs Temp Pulse Resp BP Pulse Ox 98.1 F 89 18 142/55 H 97 09/17/20 03:05 09/17/20 05:05 09/17/20 03:05 09/17/20 03:05 09/17/20 03:05 Oxygen Flow Rate (L/min) 2 Oxygen Delivery Method Nasal Cannula Weight: 111.584 kg Body Mass Index (BMI) 34.2 Intake and Output for Last 24 Hours 09/15/20 09/16/20 09/17/20 23:59 23:59 23:59 Intake Total 5214.58 / 5274.58 3247.75 / 3247.75 1015.83 / 1015.83 Output Total 270 / 345 3135 / 3135 435 / 435 Balance 4944.58 / 4929.58 112.75 / 112.75 580.83 / 580.83 Microbiology Past 72 Hours 09/15/20 13:40 Urine Catheter - Mcpherson Urine Culture - Preliminary Culture exhibits no growth. Laboratory Results 09/16/20 04:00: Magnesium Cancelled 09/16/20 17:30: Magnesium 2.3 09/17/20 05:39: WBC 18.1 H, RBC 3.49 L, Hgb 9.5 L, Hct 30.0 L, MCV 86.0, MCH 27.2, MCHC 31.7 L, RDW Std Deviation 48.0 H, RDW Coeff of Jeff 15.2 H, Plt Count 108 L, MPV 12.6 H 09/17/20 05:39: Sodium 143, Potassium 4.6, Chloride 114 H, Carbon Dioxide 20.0 L, Anion Gap 9, BUN 60 H, Creatinine 4.54 H, Estim Creat Clear Calc 13.59, Est GFR (MDRD) Af Amer 16 L, Est GFR (MDRD) Non-Af 13 L, BUN/Creatinine Ratio 13.2, Glucose 92, Calcium 8.3 L Current Medications Acetaminophen (Acetaminophen 325 Mg Tablet) 325 - 650 mg PO Q4H PRN PRN PRN Reason: pain score 1-10/fever/headache Hydrocodone Bitart/Acetaminophen (Hydrocodone Bitartrate/Apap 5/325 Tablet) 1 - 2 tablet PO Q6H PRN PRN PRN Reason: Pain Score 1-5 Last Admin: 09/15/20 11:51 Dose: 1 tablet Documented by: Docusate Sodium (Docusate Sodium 100 Mg Capsule) 200 mg PO BID [facility] Last Admin: 09/16/20 21:26 Dose: Not Given Documented by: Enoxaparin Sodium (Enoxaparin 30 Mg/0.3 Ml Syringe) 30 mg SC DAILY [facility] Last Admin: 09/16/20 09:56 Dose: 30 mg Documented by: Lactated Ringer's () 1,000 mls @ 125 mls/hr IV .Q8H [facility] Last Admin: 09/17/20 03:26 Dose: 125 mls/hr Documented by: Sodium Chloride () 250 mls @ 15 mls/hr IV .[id number] PRN PRN Reason: Saline Flush Sodium Chloride () 250 mls @ 15 mls/hr IV .[id number] PRN PRN Reason: Additional IVPB Infusion Cefepime HCl 0.5 gm/ Sodium (Chloride) 50 mls @ 100 mls/hr IV Q24 [facility] Last Infusion: 09/16/20 10:26 Dose: Infused Documented by: Magnesium Hydroxide (Magnesium Hydroxide 30 Ml Udc) 30 ml PO Q4H PRN PRN PRN Reason: Heartburn Metoclopramide HCl (Metoclopramide 10 Mg/2 Ml Vial) 10 mg IV Q8H PRN PRN PRN Reason: Nausea/vomiting Metoprolol Tartrate (Metoprolol Tartrate 25 Mg Tablet) 25 mg NG BID [facility] Last Admin: 09/16/20 21:25 Dose: 25 mg Documented by: Morphine Sulfate (Morphine 2 Mg/Ml Syringe) 2 mg IV Q2H PRN PRN PRN Reason: Pain Score 6-10 Last Admin: 09/16/20 02:49 Dose: 2 mg Documented by: Ondansetron HCl (Ondansetron 4 Mg/2 Ml Vial) 4 mg IV Q8H PRN PRN Reason: Nausea Last Admin: 09/16/20 07:02 Dose: 4 mg Documented by: Sodium Chloride (0.9% Nacl Peripheral Flush Adult/Peds) 5 - 15 ml IV UD PRN PRN Reason: SALINE FLUSH Last Admin: 09/14/20 23:03 Dose: 10 ml Documented by: Medical Necessity - Tobacco Use Smoking Status: Former smoker Assessment/Plan All Active Problems (Last Reviewed 09/14/20 @ 10:[address] rAamis Matthew MD) Bladder tumor (Acute) Bladder cancer (Acute) Incarcerated left inguinal hernia (Acute) Gross hematuria (Acute) Abrasion of right hand, initial encounter (Acute) Contusion of unspecified front wall of thorax, initial encounter (Acute) 80-year-old male status post radical cystoprostatectomy for invasive bladder cancer at this point his kidney function is recovering which is good white count is coming down. Continue with broad-spectrum antibiotics. Bowels are decompressed with NG tube in his bowels are nice and soft still has not passed gas or flatus at believe he is got an ileus. We will continue with NG decompression await for his bowel function return. He needs to be out of bed. Not sure if he is ready to ambulate he may not be strong enough at least getting out of bed will be helpful.
[2020-09-17] MEDS: Metoprolol Tartrate 25 MG Tablet NG (08:18)
[2020-09-17] MEDS: Docusate Sodium 100 MG Capsule 200 MG PO ×2 (08:18→21:36)
[2020-09-17] MEDS: Enoxaparin 30 MG/0.3 ML Syringe SC (08:26)
--- NOTE | 2020-09-17 11:11 | PCM.PN.REN ---
Patient Problems: Active and Suspected Problems (Last Reviewed 09/14/20 @ 10:[address] Aramis Matthew MD) Bladder cancer (Acute) Incarcerated left inguinal hernia (Acute) Subjective: no new events urine output through ileal conduit is good - Physical Exam Vitals/I&O's: Vital Signs Temp Pulse Resp BP Pulse Ox 98.1 F 95 18 152/57 H 96 09/17/20 08:15 09/17/20 08:18 09/17/20 08:15 09/17/20 08:18 09/17/20 09:35 Oxygen Flow Rate (L/min) 2 Oxygen Delivery Method Room Air Weight: 111.584 kg Body Mass Index (BMI) 34.2 Intake and Output for Last 24 Hours 09/15/20 09/16/20 09/17/20 23:59 23:59 23:59 Intake Total 5214.58 / 5274.58 3247.75 / 3247.75 1967.91 / 1967.91 Output Total 270 / 345 3135 / 3135 885 / 885 Balance 4944.58 / 4929.58 112.75 / 112.75 1082.91 / 1082.91 General: Alert, Oriented x3, Cooperative HEENT: Atraumatic, PERRLA, EOMI, Normocephalic Neck: Supple, No JVD, Negative Carotid Bruits Lungs: Clear to auscultation, Normal air movement Cardiovascular: Regular rate, No murmurs Abdomen: Passing Flatus, Distended Extremities: No edema, Capillary Refill Less than 3 Seconds Skin: No rashes, No breakdown Musculoskeletal: No Tenderness to Palpation of Joints or Extremities Neurological: Cranial nerves II-XII grossly intact Psych/Mental Status: Normal Affect, Appropriate Microbiology Past 72 Hours 09/15/20 13:10 Blood Culture (Wb) - Anticubital Left Blood Culture - Preliminary No growth in 48 hours. 09/15/20 13:00 Blood Culture (Wb) - Anticubital Right Blood Culture - Preliminary No growth in 48 hours. 09/15/20 13:40 Urine Catheter - Mcpherson Urine Culture - Final Culture exhibits no growth. Laboratory Results 09/16/20 04:00: Magnesium Cancelled 09/16/20 17:30: Magnesium 2.3 09/17/20 05:39: WBC 18.1 H, RBC 3.49 L, Hgb 9.5 L, Hct 30.0 L, MCV 86.0, MCH 27.2, MCHC 31.7 L, RDW Std Deviation 48.0 H, RDW Coeff of Jeff 15.2 H, Plt Count 108 L, MPV 12.6 H 09/17/20 05:39: Sodium 143, Potassium 4.6, Chloride 114 H, Carbon Dioxide 20.0 L, Anion Gap 9, BUN 60 H, Creatinine 4.54 H, Estim Creat Clear Calc 13.59, Est GFR (MDRD) Af Amer 16 L, Est GFR (MDRD) Non-Af 13 L, BUN/Creatinine Ratio 13.2, Glucose 92, Calcium 8.3 L Current Medications Acetaminophen (Acetaminophen 325 Mg Tablet) 325 - 650 mg PO Q4H PRN PRN PRN Reason: pain score 1-10/fever/headache Hydrocodone Bitart/Acetaminophen (Hydrocodone Bitartrate/Apap 5/325 Tablet) 1 - 2 tablet PO Q6H PRN PRN PRN Reason: Pain Score 1-5 Last Admin: 09/15/20 11:51 Dose: 1 tablet Documented by: Docusate Sodium (Docusate Sodium 100 Mg Capsule) 200 mg PO BID [facility] Last Admin: 09/17/20 08:18 Dose: 200 mg Documented by: Enoxaparin Sodium (Enoxaparin 30 Mg/0.3 Ml Syringe) 30 mg SC DAILY [facility] Last Admin: 09/17/20 08:26 Dose: 30 mg Documented by: Lactated Ringer's () 1,000 mls @ 125 mls/hr IV .Q8H [facility] Last Infusion: 09/17/20 11:10 Dose: 125 mls/hr Documented by: Sodium Chloride () 250 mls @ 15 mls/hr IV .[id number] PRN PRN Reason: Saline Flush Sodium Chloride () 250 mls @ 15 mls/hr IV .[id number] PRN PRN Reason: Additional IVPB Infusion Cefepime HCl 0.5 gm/ Sodium (Chloride) 50 mls @ 100 mls/hr IV Q24 [facility] Last Infusion: 09/17/20 11:08 Dose: Infused Documented by: Magnesium Hydroxide (Magnesium Hydroxide 30 Ml Udc) 30 ml PO Q4H PRN PRN PRN Reason: Heartburn Metoclopramide HCl (Metoclopramide 10 Mg/2 Ml Vial) 10 mg IV Q8H PRN PRN PRN Reason: Nausea/vomiting Metoprolol Tartrate (Metoprolol Tartrate 25 Mg Tablet) 25 mg PO BID [facility] Last Admin: 09/17/20 10:03 Dose: Not Given Documented by: Morphine Sulfate (Morphine 2 Mg/Ml Syringe) 2 mg IV Q2H PRN PRN PRN Reason: Pain Score 6-10 Last Admin: 09/16/20 02:49 Dose: 2 mg Documented by: Ondansetron HCl (Ondansetron 4 Mg/2 Ml Vial) 4 mg IV Q8H PRN PRN Reason: Nausea Last Admin: 09/16/20 07:02 Dose: 4 mg Documented by: Sodium Chloride (0.9% Nacl Peripheral Flush Adult/Peds) 5 - 15 ml IV UD PRN PRN Reason: SALINE FLUSH Last Admin: 09/14/20 23:03 Dose: 10 ml Documented by: Medical Necessity - Tobacco Use Smoking Status: Former smoker Assessment/Plan All Active Problems (Last Reviewed 09/14/20 @ 10:[address] Aramis Matthew MD) Bladder tumor (Acute) Bladder cancer (Acute) Incarcerated left inguinal hernia (Acute) Gross hematuria (Acute) Abrasion of right hand, initial encounter (Acute) Contusion of unspecified front wall of thorax, initial encounter (Acute) MERLE prerenal/ATN with persistent hypotension CKD baseline creatinine 1.8-2.4 invasive bladder cancer s/p laparoscopic converted to open radical cystoprostatectomy. Bilateral pelvic lymph node dissection and formation of a ileal conduit. s/p right inguinal hernia repair with mesh History of hypertension urine output is good cr is better electrolytes are ok continue fluids remains NPO
[2020-09-17] MEDS: 0.9% NaCl Peripheral Flush Adult/Peds IV (12:03)
--- NOTE | 2020-09-17 12:44 | PCM.PROGNOTE ---
<BrandenAlison [employer] - Last Filed: 09/17/20 12:49> Patient Problems: Active and Suspected Problems (Last Reviewed 09/14/20 @ 10:[address] Aramis Matthew MD) Bladder cancer (Acute) Incarcerated left inguinal hernia (Acute) Subjective: Patient seen and examined. Denies significant abdominal pain. Denies chest pain, palpitations. Is not passing flatus. Denies fever, chills. - Physical Exam Vitals/I&O's: Vital Signs Temp Pulse Resp BP Pulse Ox 98.1 F 95 18 152/57 H 96 09/17/20 08:15 09/17/20 08:18 09/17/20 08:15 09/17/20 08:18 09/17/20 09:35 Oxygen Flow Rate (L/min) 2 Oxygen Delivery Method Room Air Weight: 246 lb Body Mass Index (BMI) 34.2 Intake and Output for Last 24 Hours 09/15/20 09/16/20 09/17/20 23:59 23:59 23:59 Intake Total 5214.58 / 5274.58 3247.75 / 3247.75 2110.83 / 2110.83 Output Total 270 / 345 3135 / 3135 885 / 885 Balance 4944.58 / 4929.58 112.75 / 112.75 1225.83 / 1225.83 General: Alert, Oriented x3, Cooperative HEENT: Atraumatic, PERRLA, EOMI, Normocephalic, - - NG in place Oral: Dry Mucosa Neck: Supple, No JVD, Negative Carotid Bruits Lungs: Clear to auscultation, Diminished Cardiovascular: Regular rate, No murmurs, - - Frequent PVCs Abdomen: Bowel Sounds Present, Soft, Non Tender, Non-Distended, - - Postop dressings intact Extremities: No clubbing, No cyanosis, No edema Skin: No rashes, No breakdown Musculoskeletal: No Tenderness to Palpation of Joints or Extremities Neurological: Cranial nerves II-XII grossly intact, Neuro grossly intact Psych/Mental Status: Normal Affect, Appropriate Microbiology Past 72 Hours 09/15/20 13:10 Blood Culture (Wb) - Anticubital Left Blood Culture - Preliminary No growth in 48 hours. 09/15/20 13:00 Blood Culture (Wb) - Anticubital Right Blood Culture - Preliminary No growth in 48 hours. 09/15/20 13:40 Urine Catheter - Mcpherson Urine Culture - Final Culture exhibits no growth. Laboratory Results 09/16/20 04:00: Magnesium Cancelled 09/16/20 17:30: Magnesium 2.3 09/17/20 05:39: WBC 18.1 H, RBC 3.49 L, Hgb 9.5 L, Hct 30.0 L, MCV 86.0, MCH 27.2, MCHC 31.7 L, RDW Std Deviation 48.0 H, RDW Coeff of Jeff 15.2 H, Plt Count 108 L, MPV 12.6 H 09/17/20 05:39: Sodium 143, Potassium 4.6, Chloride 114 H, Carbon Dioxide 20.0 L, Anion Gap 9, BUN 60 H, Creatinine 4.54 H, Estim Creat Clear Calc 13.59, Est GFR (MDRD) Af Amer 16 L, Est GFR (MDRD) Non-Af 13 L, BUN/Creatinine Ratio 13.2, Glucose 92, Calcium 8.3 L Current Medications Acetaminophen (Acetaminophen 325 Mg Tablet) 325 - 650 mg PO Q4H PRN PRN PRN Reason: pain score 1-10/fever/headache Hydrocodone Bitart/Acetaminophen (Hydrocodone Bitartrate/Apap 5/325 Tablet) 1 - 2 tablet PO Q6H PRN PRN PRN Reason: Pain Score 1-5 Last Admin: 09/15/20 11:51 Dose: 1 tablet Documented by: Docusate Sodium (Docusate Sodium 100 Mg Capsule) 200 mg PO BID [facility] Last Admin: 09/17/20 08:18 Dose: 200 mg Documented by: Enoxaparin Sodium (Enoxaparin 30 Mg/0.3 Ml Syringe) 30 mg SC DAILY [facility] Last Admin: 09/17/20 08:26 Dose: 30 mg Documented by: Lactated Ringer's () 1,000 mls @ 125 mls/hr IV .Q8H [facility] Last Admin: 09/17/20 12:03 Dose: 125 mls/hr Documented by: Sodium Chloride () 250 mls @ 15 mls/hr IV .[id number] PRN PRN Reason: Saline Flush Sodium Chloride () 250 mls @ 15 mls/hr IV .[id number] PRN PRN Reason: Additional IVPB Infusion Cefepime HCl 0.5 gm/ Sodium (Chloride) 50 mls @ 100 mls/hr IV Q24 [facility] Last Infusion: 09/17/20 11:08 Dose: Infused Documented by: Magnesium Hydroxide (Magnesium Hydroxide 30 Ml Udc) 30 ml PO Q4H PRN PRN PRN Reason: Heartburn Metoclopramide HCl (Metoclopramide 10 Mg/2 Ml Vial) 10 mg IV Q8H PRN PRN PRN Reason: Nausea/vomiting Metoprolol Tartrate (Metoprolol Tartrate 25 Mg Tablet) 25 mg PO BID [facility] Last Admin: 09/17/20 10:03 Dose: Not Given Documented by: Morphine Sulfate (Morphine 2 Mg/Ml Syringe) 2 mg IV Q2H PRN PRN PRN Reason: Pain Score 6-10 Last Admin: 09/16/20 02:49 Dose: 2 mg Documented by: Ondansetron HCl (Ondansetron 4 Mg/2 Ml Vial) 4 mg IV Q8H PRN PRN Reason: Nausea Last Admin: 09/16/20 07:02 Dose: 4 mg Documented by: Sodium Chloride (0.9% Nacl Peripheral Flush Adult/Peds) 5 - 15 ml IV UD PRN PRN Reason: SALINE FLUSH Last Admin: 09/17/20 12:03 Dose: 10 ml Documented by: Medical Necessity - Tobacco Use Smoking Status: Former smoker Assessment/Plan All Active Problems (Last Reviewed 09/14/20 @ 10:[address] Aramis Matthew MD) Bladder tumor (Acute) Bladder cancer (Acute) Incarcerated left inguinal hernia (Acute) Gross hematuria (Acute) Abrasion of right hand, initial encounter (Acute) Contusion of unspecified front wall of thorax, initial encounter (Acute) 1. Leukocytosis-unclear etiology. Afebrile. Possibly reactive. WBC significantly increased following surgery. Chest x-ray admission unremarkable. Continue cefepime empirically. Blood and urine cultures show no growth. Leukocytosis significantly improved. 2. Acute kidney injury on chronic kidney disease stage IV-nephrology consulted. Hold nephrotoxic regimen including losartan. Gentle IV fluids, trend BMP. Renal ultrasound ordered. 3. Invasive bladder cancer-Dr. Matthew following. Underwent laparoscopic robotic assisted radical cystoprostatectomy with formation of ileal conduit 09/14/2020. Management per urology. 4. Incarcerated left inguinal hernia-status post left inguinal hernia repair with mesh 09/14/2020. General surgery following. 5. History of PVCs, NSVT-asymptomatic. 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 Abbasi, [facility] cardiology. Home metoprolol regimen increased. Echocardiogram December 2019 demonstrated an EF of 65%, stage II diastolic dysfunction, RVSP estimated to be 35 mmHg. 6. Hypertension-losartan on hold. Continue metoprolol. 7. Hyperlipidemia-continue statin. DVT prophylaxis-SCDs This patient was seen by YASMEEN Robin under the supervision of Dr. Higginbotham. <Derek Higginbotham F - Last Filed: 09/17/20 17:27> - Physical Exam Vitals/I&O's: Vital Signs Temp Pulse Resp BP Pulse Ox 97.9 F 93 16 93/74 98 09/17/20 14:30 09/17/20 14:30 09/17/20 14:30 09/17/20 14:30 09/17/20 14:30 Oxygen Flow Rate (L/min) 2 Oxygen Delivery Method Room Air Weight: 246 lb Body Mass Index (BMI) 34.2 Intake and Output for Last 24 Hours 09/15/20 09/16/20 09/17/20 23:59 23:59 23:59 Intake Total 5214.58 / 5274.58 3247.75 / 3247.75 2110.83 / 2110.83 Output Total 270 / 345 3135 / 3135 1585 / 1585 Balance 4944.58 / 4929.58 112.75 / 112.75 525.83 / 525.83 Microbiology Past 72 Hours 09/15/20 13:10 Blood Culture (Wb) - Anticubital Left Blood Culture - Preliminary No growth in 48 hours. 09/15/20 13:00 Blood Culture (Wb) - Anticubital Right Blood Culture - Preliminary No growth in 48 hours. 09/15/20 13:40 Urine Catheter - Mcpherson Urine Culture - Final Culture exhibits no growth. Laboratory Results 09/12/20 13:52: Crossmatch See Detail 09/14/20 18:30: Diff Path Review Reviewed 09/15/20 07:05: Diff Path Review Reviewed 09/16/20 17:30: Magnesium 2.3 09/17/20 05:39: WBC 18.1 H, RBC 3.49 L, Hgb 9.5 L, Hct 30.0 L, MCV 86.0, MCH 27.2, MCHC 31.7 L, RDW Std Deviation 48.0 H, RDW Coeff of Jeff 15.2 H, Plt Count 108 L, MPV 12.6 H 09/17/20 05:39: Sodium 143, Potassium 4.6, Chloride 114 H, Carbon Dioxide 20.0 L, Anion Gap 9, BUN 60 H, Creatinine 4.54 H, Estim Creat Clear Calc 13.59, Est GFR (MDRD) Af Amer 16 L, Est GFR (MDRD) Non-Af 13 L, BUN/Creatinine Ratio 13.2, Glucose 92, Calcium 8.3 L Current Medications Acetaminophen (Acetaminophen 325 Mg Tablet) 325 - 650 mg PO Q4H PRN PRN PRN Reason: pain score 1-10/fever/headache Hydrocodone Bitart/Acetaminophen (Hydrocodone Bitartrate/Apap 5/325 Tablet) 1 - 2 tablet PO Q6H PRN PRN PRN Reason: Pain Score 1-5 Last Admin: 09/15/20 11:51 Dose: 1 tablet Documented by: Docusate Sodium (Docusate Sodium 100 Mg Capsule) 200 mg PO BID [facility] Last Admin: 09/17/20 08:18 Dose: 200 mg Documented by: Enoxaparin Sodium (Enoxaparin 30 Mg/0.3 Ml Syringe) 30 mg SC DAILY [facility] Last Admin: 09/17/20 08:26 Dose: 30 mg Documented by: Lactated Ringer's () 1,000 mls @ 125 mls/hr IV .Q8H [facility] Last Admin: 09/17/20 12:03 Dose: 125 mls/hr Documented by: Sodium Chloride () 250 mls @ 15 mls/hr IV .[id number] PRN PRN Reason: Saline Flush Sodium Chloride () 250 mls @ 15 mls/hr IV .[id number] PRN PRN Reason: Additional IVPB Infusion Cefepime HCl 0.5 gm/ Sodium (Chloride) 50 mls @ 100 mls/hr IV Q24 [facility] Last Infusion: 09/17/20 11:08 Dose: Infused Documented by: Magnesium Hydroxide (Magnesium Hydroxide 30 Ml Udc) 30 ml PO Q4H PRN PRN PRN Reason: Heartburn Metoclopramide HCl (Metoclopramide 10 Mg/2 Ml Vial) 10 mg IV Q8H PRN PRN PRN Reason: Nausea/vomiting Metoprolol Tartrate (Metoprolol Tartrate 50 Mg Tablet) 50 mg PO BID [facility] Morphine Sulfate (Morphine 2 Mg/Ml Syringe) 2 mg IV Q2H PRN PRN PRN Reason: Pain Score 6-10 Last Admin: 09/16/20 02:49 Dose: 2 mg Documented by: Ondansetron HCl (Ondansetron 4 Mg/2 Ml Vial) 4 mg IV Q8H PRN PRN Reason: Nausea Last Admin: 09/16/20 07:02 Dose: 4 mg Documented by: Sodium Chloride (0.9% Nacl Peripheral Flush Adult/Peds) 5 - 15 ml IV UD PRN PRN Reason: SALINE FLUSH Last Admin: 09/17/20 12:03 Dose: 10 ml Documented by: Addendum: Dr. Higginbotham I personally examined the patient and reviewed the chart. I agree with the above. 80-year-old male with invasive bladder cancer and incarcerated left inguinal hernia status post left inguinal hernia repair on 09/14/2020 as well as a robotic assisted radical cystoprostatectomy with ileal conduit 09/14/2020. Leukocytosis is improving and it is likely reactive. Appreciate nephrology's assistance with his elevated creatinine and renal failure. Denies any bowel movement or flatus, appears to be having a slow recovery from ileus postoperatively. Inpatient E&M: [id number] [facility] [address]
[2020-09-17 14:03] LABS: Pathologist Review Reviewed
[2020-09-17 14:11] LABS: Pathologist Review Reviewed
[2020-09-17] MEDS: Metoprolol Tartrate 50 MG Tablet PO (21:37)
[2020-09-18] VITALS (10 sets, daily range): BP systolic 134–156; BP diastolic 63–92; PULSE 57–109; RESP 18; TEMP 36.7–36.9; O2SAT 94–98
[2020-09-18] MEDS: Lactated Ringers 1,000 ML 125 ML IV (03:32)
[2020-09-18 06:46] LABS: Hematocrit 27.5 % (40-54); Hemoglobin 8.5 g/dL (13.0-16.5); Mean Corp Hgb Conc 30.9 g/dL (32-36); Mean Corpuscular Hgb 26.3 pg (27.0-32.0); Mean Corpuscular Volume 85.1 fL (80-94); Mean Platelet Vol. 12.6 fl (6.2-12.0); Platelet Count 104 K/mm3 (150-450); RBC Distribution Width CV 15.4 % (11.6-14.6); RBC Distribution Width SD 47.7 fl (35.1-43.9); Red Blood Count 3.23 M/mm3 (4.6-6.2); White Blood Count 11.5 K/mm3 (4.4-11.0)
[2020-09-18 07:25] LABS: Anion Gap 10 (5-15); BUN 66 mg/dL (7-18); BUN/Creat Ratio 17.9 RATIO (10-20); Calcium,Total 8.6 mg/dL (8.5-10.1); Chloride 116 mmol/L (98-107); Creatinine, Serum 3.69 mg/dL (0.70-1.30); EST Glomerular Filtration Rate 17 mL/min (>60); Est Glom Filt Rate - Afr Amer 20 mL/min (>60); Estimated Creatinine Clearance 16.72 ml/min; Glucose 94 mg/dL (74-106); Potassium 4.3 mmol/L (3.5-5.1); Sodium Level 145 mmol/L (136-145)
--- NOTE | 2020-09-18 07:51 | PCM.PROGNOTE ---
Patient Problems: Active and Suspected Problems (Last Reviewed 09/14/20 @ 10:[address] Aramis Matthew MD) Bladder cancer (Acute) Incarcerated left inguinal hernia (Acute) Subjective: Postoperative day #4 status post open radical cystoprostatectomy and formation of ileal conduit. He is doing well his NG output is much lower he reported passing flatus we will remove the NG tube today and start him on a clear liquid diet. Urine output is good creatinine is coming down. Ultrasound reviewed and normal to have some hydronephrosis on both kidneys especially the left kidney since it was chronically obstructed he has stents bilaterally there is no obstruction. Creatinine is improving. Abdomen soft and benign. He reports flatus. White blood count is improved greatly. Hemoglobin is stable and he is hemodynamically stable. - Physical Exam Vitals/I&O's: Vital Signs Temp Pulse Resp BP Pulse Ox 98.1 F 91 18 140/78 H 97 09/18/20 03:26 09/18/20 07:30 09/18/20 03:26 09/18/20 03:26 09/18/20 03:26 Oxygen Flow Rate (L/min) 2 Oxygen Delivery Method Room Air Weight: 111.584 kg Body Mass Index (BMI) 34.2 Intake and Output for Last 24 Hours 09/16/20 09/17/20 09/18/20 23:59 23:59 23:59 Intake Total 3247.75 / 3247.75 3290.83 / 3290.83 1330.42 / 1330.42 Output Total 3135 / 3135 2265 / 2265 1430 / 1430 Balance 112.75 / 112.75 1025.83 / 1025.83 -99.58 / -99.58 General: Alert, Oriented x3, Cooperative HEENT: Atraumatic, PERRLA, EOMI, Normocephalic Neck: Supple Lungs: Clear to auscultation, Normal air movement Cardiovascular: Regular rate, No murmurs Abdomen: Bowel Sounds Present, Soft Extremities: No edema, Capillary Refill Less than 3 Seconds Skin: No rashes, No breakdown Musculoskeletal: No Tenderness to Palpation of Joints or Extremities Neurological: Cranial nerves II-XII grossly intact Psych/Mental Status: Normal Affect, Appropriate Microbiology Past 72 Hours 09/15/20 13:10 Blood Culture (Wb) - Anticubital Left Blood Culture - Preliminary No growth in 48 hours. 09/15/20 13:00 Blood Culture (Wb) - Anticubital Right Blood Culture - Preliminary No growth in 48 hours. 09/15/20 13:40 Urine Catheter - Mcpherson Urine Culture - Final Culture exhibits no growth. Laboratory Results 09/12/20 13:52: Crossmatch See Detail 09/14/20 18:30: Diff Path Review Reviewed 09/15/20 07:05: Diff Path Review Reviewed 09/18/20 06:16: WBC 11.5 H, RBC 3.23 L, Hgb 8.5 L, Hct 27.5 L, MCV 85.1, MCH 26.3 L, MCHC 30.9 L, RDW Std Deviation 47.7 H, RDW Coeff of Jeff 15.4 H, Plt Count 104 L, MPV 12.6 H 09/18/20 06:16: Sodium 145, Potassium 4.3, Chloride 116 H, Carbon Dioxide 19.0 L, Anion Gap 10, BUN 66 H, Creatinine 3.69 H, Estim Creat Clear Calc 16.72, Est GFR (MDRD) Af Amer 20 L, Est GFR (MDRD) Non-Af 17 L, BUN/Creatinine Ratio 17.9, Glucose 94, Calcium 8.6 Current Medications Acetaminophen (Acetaminophen 325 Mg Tablet) 325 - 650 mg PO Q4H PRN PRN PRN Reason: pain score 1-10/fever/headache Hydrocodone Bitart/Acetaminophen (Hydrocodone Bitartrate/Apap 5/325 Tablet) 1 - 2 tablet PO Q6H PRN PRN PRN Reason: Pain Score 1-5 Last Admin: 09/15/20 11:51 Dose: 1 tablet Documented by: Docusate Sodium (Docusate Sodium 100 Mg Capsule) 200 mg PO BID [facility] Last Admin: 09/17/20 21:36 Dose: 200 mg Documented by: Enoxaparin Sodium (Enoxaparin 30 Mg/0.3 Ml Syringe) 30 mg SC DAILY [facility] Last Admin: 09/17/20 08:26 Dose: 30 mg Documented by: Lactated Ringer's () 1,000 mls @ 125 mls/hr IV .Q8H [facility] Last Admin: 09/18/20 03:32 Dose: 125 mls/hr Documented by: Sodium Chloride () 250 mls @ 15 mls/hr IV .[id number] PRN PRN Reason: Saline Flush Sodium Chloride () 250 mls @ 15 mls/hr IV .[id number] PRN PRN Reason: Additional IVPB Infusion Cefepime HCl 0.5 gm/ Sodium (Chloride) 50 mls @ 100 mls/hr IV Q24 [facility] Last Infusion: 09/17/20 11:08 Dose: Infused Documented by: Magnesium Hydroxide (Magnesium Hydroxide 30 Ml Udc) 30 ml PO Q4H PRN PRN PRN Reason: Heartburn Metoclopramide HCl (Metoclopramide 10 Mg/2 Ml Vial) 10 mg IV Q8H PRN PRN PRN Reason: Nausea/vomiting Metoprolol Tartrate (Metoprolol Tartrate 50 Mg Tablet) 50 mg PO BID [facility] Last Admin: 09/17/20 21:37 Dose: 50 mg Documented by: Morphine Sulfate (Morphine 2 Mg/Ml Syringe) 2 mg IV Q2H PRN PRN PRN Reason: Pain Score 6-10 Last Admin: 09/16/20 02:49 Dose: 2 mg Documented by: Ondansetron HCl (Ondansetron 4 Mg/2 Ml Vial) 4 mg IV Q8H PRN PRN Reason: Nausea Last Admin: 09/16/20 07:02 Dose: 4 mg Documented by: Sodium Chloride (0.9% Nacl Peripheral Flush Adult/Peds) 5 - 15 ml IV UD PRN PRN Reason: SALINE FLUSH Last Admin: 09/17/20 12:03 Dose: 10 ml Documented by: Medical Necessity - Tobacco Use Smoking Status: Former smoker Assessment/Plan All Active Problems (Last Reviewed 09/14/20 @ 10:[address] Aramis Matthew MD) Bladder tumor (Acute) Bladder cancer (Acute) Incarcerated left inguinal hernia (Acute) Gross hematuria (Acute) Abrasion of right hand, initial encounter (Acute) Contusion of unspecified front wall of thorax, initial encounter (Acute) 80-year-old male status post radical cystoprostatectomy is doing quite well NG tube can remain be removed started on clear liquid diet. Continue with antibiotics and gentle hydration. Creatinine is improving.
[2020-09-18] MEDS: Enoxaparin 30 MG/0.3 ML Syringe SC (08:09)
[2020-09-18] MEDS: Metoprolol Tartrate 50 MG Tablet PO (08:09)
[2020-09-18] MEDS: Docusate Sodium 100 MG Capsule 200 MG PO (08:09)
[2020-09-18] MEDS: Ondansetron 4 MG/2 ML Vial IV ×2 (09:46→20:45)
--- NOTE | 2020-09-18 11:05 | PCM.PROGNOTE ---
<BrandenAlison BOOKMAKER'S CLERK - Last Filed: 09/18/20 11:18> Patient Problems: Active and Suspected Problems (Last Reviewed 09/14/20 @ 10:[address] Aramis Matthew MD) Bladder cancer (Acute) Incarcerated left inguinal hernia (Acute) Subjective: Patient seen and examined. NG removed this morning and patient was started on clear liquid diet. Patient reports significant liquid intake. Now complains of nausea and vomiting. Denies abdominal pain. Denies fever, chills. - Physical Exam Vitals/I&O's: Vital Signs Temp Pulse Resp BP Pulse Ox 98.1 F 94 18 154/89 H 94 09/18/20 08:10 09/18/20 08:10 09/18/20 08:10 09/18/20 08:10 09/18/20 08:10 Oxygen Flow Rate (L/min) 2 Oxygen Delivery Method Room Air Weight: 246 lb 0.01 oz Body Mass Index (BMI) 34.2 Intake and Output for Last 24 Hours 09/16/20 09/17/20 09/18/20 23:59 23:59 23:59 Intake Total 3247.75 / 3247.75 3290.83 / 3290.83 1945.00 / 1945.00 Output Total 3135 / 3135 2265 / 2265 1450 / 1450 Balance 112.75 / 112.75 1025.83 / 1025.83 495.00 / 495.00 General: Alert, Oriented x3, Cooperative HEENT: Atraumatic, PERRLA, EOMI, Normocephalic Neck: Supple, No JVD, Negative Carotid Bruits Lungs: Clear to auscultation, Diminished Cardiovascular: Regular rate, No murmurs Abdomen: Bowel Sounds Present, Soft, Non Tender, - - Abdominal dressings intact Extremities: No clubbing, No cyanosis, No edema, Capillary Refill Less than 3 Seconds Skin: No rashes, No breakdown Musculoskeletal: No Tenderness to Palpation of Joints or Extremities Neurological: Cranial nerves II-XII grossly intact, Neuro grossly intact Psych/Mental Status: Normal Affect, Appropriate Microbiology Past 72 Hours 09/15/20 13:10 Blood Culture (Wb) - Anticubital Left Blood Culture - Preliminary No growth in 48 hours. 09/15/20 13:00 Blood Culture (Wb) - Anticubital Right Blood Culture - Preliminary No growth in 48 hours. 09/15/20 13:40 Urine Catheter - Mcpherson Urine Culture - Final Culture exhibits no growth. Laboratory Results 09/12/20 13:52: Crossmatch See Detail 09/14/20 18:30: Diff Path Review Reviewed 09/15/20 07:05: Diff Path Review Reviewed 09/18/20 06:16: WBC 11.5 H, RBC 3.23 L, Hgb 8.5 L, Hct 27.5 L, MCV 85.1, MCH 26.3 L, MCHC 30.9 L, RDW Std Deviation 47.7 H, RDW Coeff of Jeff 15.4 H, Plt Count 104 L, MPV 12.6 H 09/18/20 06:16: Sodium 145, Potassium 4.3, Chloride 116 H, Carbon Dioxide 19.0 L, Anion Gap 10, BUN 66 H, Creatinine 3.69 H, Estim Creat Clear Calc 16.72, Est GFR (MDRD) Af Amer 20 L, Est GFR (MDRD) Non-Af 17 L, BUN/Creatinine Ratio 17.9, Glucose 94, Calcium 8.6 Current Medications Acetaminophen (Acetaminophen 325 Mg Tablet) 325 - 650 mg PO Q4H PRN PRN PRN Reason: pain score 1-10/fever/headache Hydrocodone Bitart/Acetaminophen (Hydrocodone Bitartrate/Apap 5/325 Tablet) 1 - 2 tablet PO Q6H PRN PRN PRN Reason: Pain Score 1-5 Last Admin: 09/15/20 11:51 Dose: 1 tablet Documented by: Docusate Sodium (Docusate Sodium 100 Mg Capsule) 200 mg PO BID [facility] Last Admin: 09/18/20 08:09 Dose: 200 mg Documented by: Enoxaparin Sodium (Enoxaparin 30 Mg/0.3 Ml Syringe) 30 mg SC DAILY [facility] Last Admin: 09/18/20 08:09 Dose: 30 mg Documented by: Lactated Ringer's () 1,000 mls @ 75 mls/hr IV .[id number] [facility] Last Infusion: 09/18/20 08:03 Dose: 75 mls/hr Documented by: Sodium Chloride () 250 mls @ 15 mls/hr IV .[id number] PRN PRN Reason: Saline Flush Sodium Chloride () 250 mls @ 15 mls/hr IV .[id number] PRN PRN Reason: Additional IVPB Infusion Cefepime HCl 0.5 gm/ Sodium (Chloride) 50 mls @ 100 mls/hr IV Q24 [facility] Last Infusion: 09/18/20 10:17 Dose: Infused Documented by: Magnesium Hydroxide (Magnesium Hydroxide 30 Ml Udc) 30 ml PO Q4H PRN PRN PRN Reason: Heartburn Metoclopramide HCl (Metoclopramide 10 Mg/2 Ml Vial) 10 mg IV Q8H PRN PRN PRN Reason: Nausea/vomiting Metoprolol Tartrate (Metoprolol Tartrate 50 Mg Tablet) 50 mg PO BID [facility] Last Admin: 09/18/20 08:09 Dose: 50 mg Documented by: Morphine Sulfate (Morphine 2 Mg/Ml Syringe) 2 mg IV Q2H PRN PRN PRN Reason: Pain Score 6-10 Last Admin: 09/16/20 02:49 Dose: 2 mg Documented by: Ondansetron HCl (Ondansetron 4 Mg/2 Ml Vial) 4 mg IV Q8H PRN PRN Reason: Nausea Last Admin: 09/18/20 09:46 Dose: 4 mg Documented by: Sodium Chloride (0.9% Nacl Peripheral Flush Adult/Peds) 5 - 15 ml IV UD PRN PRN Reason: SALINE FLUSH Last Admin: 09/17/20 12:03 Dose: 10 ml Documented by: Medical Necessity - Tobacco Use Smoking Status: Former smoker Assessment/Plan All Active Problems (Last Reviewed 09/14/20 @ 10:[address] Aramis Matthew MD) Bladder tumor (Acute) Bladder cancer (Acute) Incarcerated left inguinal hernia (Acute) Gross hematuria (Acute) Abrasion of right hand, initial encounter (Acute) Contusion of unspecified front wall of thorax, initial encounter (Acute) 1. Leukocytosis-unclear etiology. Afebrile. Possibly reactive. WBC significantly increased following surgery. Chest x-ray admission unremarkable. Continue cefepime empirically. Blood and urine cultures show no growth. Leukocytosis significantly improved. Afebrile. Consider discontinuing antibiotics in the next 24 to 48 hours. 2. Acute kidney injury on chronic kidney disease stage IV-nephrology consulted. Hold nephrotoxic regimen including losartan. Gentle IV fluids, trend BMP. Renal ultrasound demonstrates bilateral hydronephrosis, left worse than right. Creatinine improving. 3. Invasive bladder cancer-Dr. Matthew following. Underwent laparoscopic robotic assisted radical cystoprostatectomy with formation of ileal conduit 09/14/2020. Management per urology. 4. Incarcerated left inguinal hernia-status post left inguinal hernia repair with mesh 09/14/2020. General surgery following. 5. History of PVCs, NSVT-asymptomatic. 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 Abbasi, [facility] cardiology. Home metoprolol regimen increased. Echocardiogram December 2019 demonstrated an EF of 65%, stage II diastolic dysfunction, RVSP estimated to be 35 mmHg. 6. Hypertension-losartan on hold. Continue metoprolol. 7. Hyperlipidemia-continue statin. DVT prophylaxis-SCDs This patient was seen by YASMEEN Robin under the supervision of Dr. Higginbotham. <Derek Higginbotham F - Last Filed: 09/18/20 12:14> - Physical Exam Vitals/I&O's: Vital Signs Temp Pulse Resp BP Pulse Ox 98.1 F 94 18 154/89 H 94 09/18/20 08:10 09/18/20 08:10 09/18/20 08:10 09/18/20 08:10 09/18/20 08:10 Oxygen Flow Rate (L/min) 2 Oxygen Delivery Method Room Air Weight: 246 lb 0.01 oz Body Mass Index (BMI) 34.2 Intake and Output for Last 24 Hours 09/16/20 09/17/20 09/18/20 23:59 23:59 23:59 Intake Total 3247.75 / 3247.75 3290.83 / 3290.83 2745.00 / 2745.00 Output Total 3135 / 3135 2265 / 2265 2130 / 2130 Balance 112.75 / 112.75 1025.83 / 1025.83 615.00 / 615.00 Microbiology Past 72 Hours 09/15/20 13:10 Blood Culture (Wb) - Anticubital Left Blood Culture - Preliminary No growth in 48 hours. 09/15/20 13:00 Blood Culture (Wb) - Anticubital Right Blood Culture - Preliminary No growth in 48 hours. 09/15/20 13:40 Urine Catheter - Mcpherson Urine Culture - Final Culture exhibits no growth. Laboratory Results 09/12/20 13:52: Crossmatch See Detail 09/14/20 18:30: Diff Path Review Reviewed 09/15/20 07:05: Diff Path Review Reviewed 09/18/20 06:16: WBC 11.5 H, RBC 3.23 L, Hgb 8.5 L, Hct 27.5 L, MCV 85.1, MCH 26.3 L, MCHC 30.9 L, RDW Std Deviation 47.7 H, RDW Coeff of Jeff 15.4 H, Plt Count 104 L, MPV 12.6 H 09/18/20 06:16: Sodium 145, Potassium 4.3, Chloride 116 H, Carbon Dioxide 19.0 L, Anion Gap 10, BUN 66 H, Creatinine 3.69 H, Estim Creat Clear Calc 16.72, Est GFR (MDRD) Af Amer 20 L, Est GFR (MDRD) Non-Af 17 L, BUN/Creatinine Ratio 17.9, Glucose 94, Calcium 8.6 Current Medications Acetaminophen (Acetaminophen 325 Mg Tablet) 325 - 650 mg PO Q4H PRN PRN PRN Reason: pain score 1-10/fever/headache Hydrocodone Bitart/Acetaminophen (Hydrocodone Bitartrate/Apap 5/325 Tablet) 1 - 2 tablet PO Q6H PRN PRN PRN Reason: Pain Score 1-5 Last Admin: 09/15/20 11:51 Dose: 1 tablet Documented by: Docusate Sodium (Docusate Sodium 100 Mg Capsule) 200 mg PO BID [facility] Last Admin: 09/18/20 08:09 Dose: 200 mg Documented by: Enoxaparin Sodium (Enoxaparin 30 Mg/0.3 Ml Syringe) 30 mg SC DAILY [facility] Last Admin: 09/18/20 08:09 Dose: 30 mg Documented by: Lactated Ringer's () 1,000 mls @ 75 mls/hr IV .[id number] [facility] Last Infusion: 09/18/20 08:03 Dose: 75 mls/hr Documented by: Sodium Chloride () 250 mls @ 15 mls/hr IV .[id number] PRN PRN Reason: Saline Flush Sodium Chloride () 250 mls @ 15 mls/hr IV .[id number] PRN PRN Reason: Additional IVPB Infusion Cefepime HCl 0.5 gm/ Sodium (Chloride) 50 mls @ 100 mls/hr IV Q24 [facility] Last Infusion: 09/18/20 10:17 Dose: Infused Documented by: Magnesium Hydroxide (Magnesium Hydroxide 30 Ml Udc) 30 ml PO Q4H PRN PRN PRN Reason: Heartburn Metoclopramide HCl (Metoclopramide 10 Mg/2 Ml Vial) 10 mg IV Q8H PRN PRN PRN Reason: Nausea/vomiting Last Admin: 09/18/20 11:24 Dose: 10 mg Documented by: Metoprolol Tartrate (Metoprolol Tartrate 50 Mg Tablet) 50 mg PO BID [facility] Last Admin: 09/18/20 08:09 Dose: 50 mg Documented by: Morphine Sulfate (Morphine 2 Mg/Ml Syringe) 2 mg IV Q2H PRN PRN PRN Reason: Pain Score 6-10 Last Admin: 09/16/20 02:49 Dose: 2 mg Documented by: Ondansetron HCl (Ondansetron 4 Mg/2 Ml Vial) 4 mg IV Q8H PRN PRN Reason: Nausea Last Admin: 09/18/20 09:46 Dose: 4 mg Documented by: Sodium Chloride (0.9% Nacl Peripheral Flush Adult/Peds) 5 - 15 ml IV UD PRN PRN Reason: SALINE FLUSH Last Admin: 09/17/20 12:03 Dose: 10 ml Documented by: Addendum: Dr. Higginbotham I personally examined the patient and reviewed the chart. I agree with the above. 80-year-old male with invasive bladder cancer and incarcerated left inguinal hernia status post left inguinal hernia repair on 09/14/2020 as well as a robotic assisted radical cystoprostatectomy with ileal conduit 09/14/2020. Leukocytosis is improving and it is likely reactive. Appreciate nephrology's assistance with his elevated creatinine and renal failure. Denies any bowel movement or flatus, appears to be having a slow recovery from ileus postoperatively. 09/18/2020: NG tube was removed today and he is passing some gas though with a little bit of nausea still. We will advance his diet slowly as he is likely to have a slow recovery from his ileus. Creatinine is also improving though BUN is slightly elevated and he does continue to have mild hydronephrosis secondary to the ileal conduit. We will have physical therapy and occupational therapy evaluate him for any discharge needs. Inpatient E&M: 93225 Subs Hosp L2
--- NOTE | 2020-09-18 11:22 | PN.RENAL_ITS ---
Patient Problems: Active and Suspected Problems (Last Reviewed 09/14/20 @ 10:[address] Aramis Matthew MD) Bladder cancer (Acute) Incarcerated left inguinal hernia (Acute) Subjective: no new complaints NG tube out still has some nausea passing gas - Physical Exam Vitals/I&O's: Vital Signs Temp Pulse Resp BP Pulse Ox 98.1 F 94 18 154/89 H 94 09/18/20 08:10 09/18/20 08:10 09/18/20 08:10 09/18/20 08:10 09/18/20 08:10 Oxygen Flow Rate (L/min) 2 Oxygen Delivery Method Room Air Weight: 111.584 kg Body Mass Index (BMI) 34.2 Intake and Output for Last 24 Hours 09/16/20 09/17/20 09/18/20 23:59 23:59 23:59 Intake Total 3247.75 / 3247.75 3290.83 / 3290.83 1945.00 / 1945.00 Output Total 3135 / 3135 2265 / 2265 1450 / 1450 Balance 112.75 / 112.75 1025.83 / 1025.83 495.00 / 495.00 General: Alert, Oriented x3, Cooperative HEENT: Atraumatic, PERRLA, EOMI, Normocephalic Neck: Supple, No JVD, Negative Carotid Bruits Lungs: Clear to auscultation, Normal air movement Cardiovascular: Regular rate, No murmurs Abdomen: Bowel Sounds Present, Soft, Non Tender Extremities: No edema, Capillary Refill Less than 3 Seconds Skin: No rashes, No breakdown Musculoskeletal: No Tenderness to Palpation of Joints or Extremities Neurological: Cranial nerves II-XII grossly intact Psych/Mental Status: Normal Affect, Appropriate Comment: ileal conduit draining into chaudhary Microbiology Past 72 Hours 09/15/20 13:10 Blood Culture (Wb) - Anticubital Left Blood Culture - Preliminary No growth in 48 hours. 09/15/20 13:00 Blood Culture (Wb) - Anticubital Right Blood Culture - Preliminary No growth in 48 hours. 09/15/20 13:40 Urine Catheter - Chaudhary Urine Culture - Final Culture exhibits no growth. Laboratory Results 09/12/20 13:52: Crossmatch See Detail 09/14/20 18:30: Diff Path Review Reviewed 09/15/20 07:05: Diff Path Review Reviewed 09/18/20 06:16: WBC 11.5 H, RBC 3.23 L, Hgb 8.5 L, Hct 27.5 L, MCV 85.1, MCH 26.3 L, MCHC 30.9 L, RDW Std Deviation 47.7 H, RDW Coeff of Jeff 15.4 H, Plt Count 104 L, MPV 12.6 H 09/18/20 06:16: Sodium 145, Potassium 4.3, Chloride 116 H, Carbon Dioxide 19.0 L , Anion Gap 10, BUN 66 H, Creatinine 3.69 H, Estim Creat Clear Calc 16.72, Est GFR (MDRD) Af Amer 20 L, Est GFR (MDRD) Non-Af 17 L, BUN/Creatinine Ratio 17.9, Glucose 94, Calcium 8.6 Current Medications Acetaminophen (Acetaminophen 325 Mg Tablet) 325 - 650 mg PO Q4H PRN PRN PRN Reason: pain score 1-10/fever/headache Hydrocodone Bitart/Acetaminophen (Hydrocodone Bitartrate/Apap 5/325 Tablet) 1 - 2 tablet PO Q6H PRN PRN PRN Reason: Pain Score 1-5 Last Admin: 09/15/20 11:51 Dose: 1 tablet Documented by: Docusate Sodium (Docusate Sodium 100 Mg Capsule) 200 mg PO BID [facility] Last Admin: 09/18/20 08:09 Dose: 200 mg Documented by: Enoxaparin Sodium (Enoxaparin 30 Mg/0.3 Ml Syringe) 30 mg SC DAILY [facility] Last Admin: 09/18/20 08:09 Dose: 30 mg Documented by: Lactated Ringer's () 1,000 mls @ 75 mls/hr IV .[id number] [facility] Last Infusion: 09/18/20 08:03 Dose: 75 mls/hr Documented by: Sodium Chloride () 250 mls @ 15 mls/hr IV .[id number] PRN PRN Reason: Saline Flush Sodium Chloride () 250 mls @ 15 mls/hr IV .[id number] PRN PRN Reason: Additional IVPB Infusion Cefepime HCl 0.5 gm/ Sodium (Chloride) 50 mls @ 100 mls/hr IV Q24 [facility] Last Infusion: 09/18/20 10:17 Dose: Infused Documented by: Magnesium Hydroxide (Magnesium Hydroxide 30 Ml Udc) 30 ml PO Q4H PRN PRN PRN Reason: Heartburn Metoclopramide HCl (Metoclopramide 10 Mg/2 Ml Vial) 10 mg IV Q8H PRN PRN PRN Reason: Nausea/vomiting Metoprolol Tartrate (Metoprolol Tartrate 50 Mg Tablet) 50 mg PO BID [facility] Last Admin: 09/18/20 08:09 Dose: 50 mg Documented by: Morphine Sulfate (Morphine 2 Mg/Ml Syringe) 2 mg IV Q2H PRN PRN PRN Reason: Pain Score 6-10 Last Admin: 09/16/20 02:49 Dose: 2 mg Documented by: Ondansetron HCl (Ondansetron 4 Mg/2 Ml Vial) 4 mg IV Q8H PRN PRN Reason: Nausea Last Admin: 09/18/20 09:46 Dose: 4 mg Documented by: Sodium Chloride (0.9% Nacl Peripheral Flush Adult/Peds) 5 - 15 ml IV UD PRN PRN Reason: SALINE FLUSH Last Admin: 09/17/20 12:03 Dose: 10 ml Documented by: Medical Necessity - Tobacco Use Smoking Status: Former smoker Assessment/Plan All Active Problems (Last Reviewed 09/14/20 @ 10:[address] Aramis Matthew MD) Bladder tumor (Acute) Bladder cancer (Acute) Incarcerated left inguinal hernia (Acute) Gross hematuria (Acute) Abrasion of right hand, initial encounter (Acute) Contusion of unspecified front wall of thorax, initial encounter (Acute) MERLE prerenal/ATN with persistent hypotension CKD baseline creatinine 1.8-2.4 invasive bladder cancer s/p laparoscopic converted to open radical cystoprostatectomy. Bilateral pelvic lymph node dissection and formation of a ileal conduit. s/p right inguinal hernia repair with mesh History of hypertension urine output is good cr is better electrolytes are ok renal US reviewed. some hydronephrosis in general is expected from ileal conduit. since cr is trending down can monitor
[2020-09-18] MEDS: Metoclopramide 10 MG/2 ML Vial IV ×2 (11:24→20:16)
[2020-09-18] MEDS: Lactated Ringers 1,000 ML 75 ML IV (14:28)
--- NOTE | 2020-09-18 14:32 | NURSING ---
In to assess stoma and change appliance. patient has been nauseated off and on today. midline surgical incision is CHUTE LOADER with riccardo intact. small amount of old dried blood noted. removed the ostomy appliance carefully. the red rubber catheter in place in stoma. will leave in place until Dr Matthew wants removed. peristomal skin is intact. cleansed peristomal skin with warm water. pat dry. applied a new 2 piece flat [employer] appliance. pt tolerated well. stoma is well budded and sits above skin level, but there is a small crease inferiorly. pt may need a convex appliance in the future. pt denies further needs at this time. pt will need home health care at discharge to assist with ostomy teaching if patient decided to go home. home health care will also have to then order the ostomy supplies for the patient since patient has Medicare.
--- NOTE | 2020-09-18 19:02 | PCS.PANDOC ---
PANDEMIC DOCUMENTATION INITIATED: Date: 09/17/2020 Time: 220
[2020-09-18] MEDS: Morphine 2 MG/ML Syringe IV ×2 (20:45→23:54)
[2020-09-18] MEDS: 0.9% NaCl Peripheral Flush Adult/Peds IV (20:45)
[2020-09-19] VITALS (11 sets, daily range): BP systolic 134–149; BP diastolic 70–88; PULSE 71–97; RESP 17–18; TEMP 36.4–36.9; O2SAT 94–98
[2020-09-19] MEDS: proCHLORPERazine 10 MG/2 ML Vial 5 MG IV (03:24)
--- NOTE | 2020-09-19 03:46 | RAD_ITS ---
STUDY: X-RAY - ABDOMEN/ REASON FOR EXAM: Male, 80 years old. NG TUBE PLACEMENT TECHNIQUE: Single AP view of the abdomen / pelvis. COMPARISON: September 16, 2020 partial visualization of the upper abdomen KUB FINDINGS: This is an image of the lower chest and upper abdomen. There is an NG tube present the tip is in the stomach. There are distended loops of small bowel present. There is degenerative change in the thoracolumbar spine. RAD/Abdomen Single View (Portable) IMPRESSION: Status post NG tube placement tip in the satisfactory position the stomach multiple distended loops of small bowel suspicious for small bowel obstruction and/or ileus. Electronically Signed: Chari Monge MD at 4:13 EST Tel , Service support ,
[2020-09-19] MEDS: Lactated Ringers 1,000 ML 75 ML IV (04:15)
[2020-09-19 05:53] LABS: Hematocrit 29.6 % (40-54); Mean Corp Hgb Conc 30.4 g/dL (32-36); Mean Corpuscular Hgb 26.3 pg (27.0-32.0); Mean Corpuscular Volume 86.5 fL (80-94); Mean Platelet Vol. 12.9 fl (6.2-12.0); Platelet Count 160 K/mm3 (150-450); RBC Distribution Width CV 15.3 % (11.6-14.6); RBC Distribution Width SD 49.1 fl (35.1-43.9); Red Blood Count 3.42 M/mm3 (4.6-6.2); White Blood Count 11.1 K/mm3 (4.4-11.0)
[2020-09-19 06:36] LABS: Anion Gap 8 (5-15); BUN 75 mg/dL (7-18); BUN/Creat Ratio 21.8 RATIO (10-20); Calcium,Total 8.7 mg/dL (8.5-10.1); Chloride 115 mmol/L (98-107); Creatinine, Serum 3.44 mg/dL (0.70-1.30); EST Glomerular Filtration Rate 18 mL/min (>60); Est Glom Filt Rate - Afr Amer 22 mL/min (>60); Estimated Creatinine Clearance 17.94 ml/min; Glucose 144 mg/dL (74-106); Potassium 4.2 mmol/L (3.5-5.1); Sodium Level 148 mmol/L (136-145)
[2020-09-19] MEDS: Metoprolol Tartrate 50 MG Tablet PO ×2 (09:44→21:58)
[2020-09-19] MEDS: Docusate Sodium 100 MG Capsule 200 MG PO ×2 (09:44→21:58)
[2020-09-19] MEDS: Enoxaparin 30 MG/0.3 ML Syringe SC (09:44)
--- NOTE | 2020-09-19 09:53 | PCM.PN.REN ---
Patient Problems: Active and Suspected Problems (Last Reviewed 09/14/20 @ 10:[address] Aramis Matthew MD) Bladder cancer (Acute) Incarcerated left inguinal hernia (Acute) Subjective: no new events - Physical Exam Vitals/I&O's: Vital Signs Temp Pulse Resp BP Pulse Ox 98.3 F 89 18 149/88 H 98 09/19/20 09:03 09/19/20 09:03 09/19/20 09:03 09/19/20 09:03 09/19/20 09:03 Oxygen Flow Rate (L/min) 2 Oxygen Delivery Method Room Air Weight: 111.584 kg Body Mass Index (BMI) 34.2 Intake and Output for Last 24 Hours 09/17/20 09/18/20 09/19/20 23:59 23:59 23:59 Intake Total 3290.83 / 3290.83 3380.42 / 3380.42 1250 / 1250 Output Total 2265 / 2265 2650 / 3320 3360 / 3360 Balance 1025.83 / 1025.83 730.42 / 60.42 -2110 / -2110 General: Alert, Oriented x3, Cooperative HEENT: Atraumatic, PERRLA, EOMI, Normocephalic Neck: Supple, No JVD, Negative Carotid Bruits Lungs: Clear to auscultation, Normal air movement Cardiovascular: Regular rate, No murmurs Abdomen: Bowel Sounds Present, Soft, Non Tender Extremities: No edema, Capillary Refill Less than 3 Seconds Skin: No rashes, No breakdown Musculoskeletal: No Tenderness to Palpation of Joints or Extremities Neurological: Cranial nerves II-XII grossly intact Psych/Mental Status: Normal Affect, Appropriate Microbiology Past 72 Hours 09/15/20 13:10 Blood Culture (Wb) - Anticubital Left Blood Culture - Preliminary No growth in 48 hours. 09/15/20 13:00 Blood Culture (Wb) - Anticubital Right Blood Culture - Preliminary No growth in 48 hours. 09/15/20 13:40 Urine Catheter - Mcpherson Urine Culture - Final Culture exhibits no growth. Laboratory Results 09/19/20 05:15: WBC 11.1 H, RBC 3.42 L, Hgb 9.0 L, Hct 29.6 L, MCV 86.5, MCH 26.3 L, MCHC 30.4 L, RDW Std Deviation 49.1 H, RDW Coeff of Jeff 15.3 H, Plt Count 160, MPV 12.9 H 09/19/20 05:15: Sodium 148 H, Potassium 4.2, Chloride 115 H, Carbon Dioxide 25.0, Anion Gap 8, BUN 75 H, Creatinine 3.44 H, Estim Creat Clear Calc 17.94, Est GFR (MDRD) Af Amer 22 L, Est GFR (MDRD) Non-Af 18 L, BUN/Creatinine Ratio 21.8 H, Glucose 144 H, Calcium 8.7 Current Medications Acetaminophen (Acetaminophen 325 Mg Tablet) 325 - 650 mg PO Q4H PRN PRN PRN Reason: pain score 1-10/fever/headache Hydrocodone Bitart/Acetaminophen (Hydrocodone Bitartrate/Apap 5/325 Tablet) 1 - 2 tablet PO Q6H PRN PRN PRN Reason: Pain Score 1-5 Last Admin: 09/15/20 11:51 Dose: 1 tablet Documented by: Docusate Sodium (Docusate Sodium 100 Mg Capsule) 200 mg PO BID [facility] Last Admin: 09/18/20 23:57 Dose: Not Given Documented by: Enoxaparin Sodium (Enoxaparin 30 Mg/0.3 Ml Syringe) 30 mg SC DAILY [facility] Last Admin: 09/18/20 08:09 Dose: 30 mg Documented by: Sodium Chloride () 250 mls @ 15 mls/hr IV .[id number] PRN PRN Reason: Saline Flush Sodium Chloride () 250 mls @ 15 mls/hr IV .[id number] PRN PRN Reason: Additional IVPB Infusion Cefepime HCl 0.5 gm/ Sodium (Chloride) 50 mls @ 100 mls/hr IV Q24 [facility] Last Infusion: 09/18/20 10:17 Dose: Infused Documented by: Sodium Chloride () 1,000 mls @ 75 mls/hr IV .[id number] [facility] Magnesium Hydroxide (Magnesium Hydroxide 30 Ml Udc) 30 ml PO Q4H PRN PRN PRN Reason: Heartburn Metoclopramide HCl (Metoclopramide 10 Mg/2 Ml Vial) 10 mg IV Q8H PRN PRN PRN Reason: Nausea/vomiting Last Admin: 09/18/20 20:16 Dose: 10 mg Documented by: Metoprolol Tartrate (Metoprolol Tartrate 50 Mg Tablet) 50 mg PO BID [facility] Last Admin: 09/18/20 23:57 Dose: Not Given Documented by: Morphine Sulfate (Morphine 2 Mg/Ml Syringe) 2 mg IV Q2H PRN PRN PRN Reason: Pain Score 6-10 Last Admin: 09/18/20 23:54 Dose: 2 mg Documented by: Ondansetron HCl (Ondansetron 4 Mg/2 Ml Vial) 4 mg IV Q8H PRN PRN Reason: Nausea Last Admin: 09/18/20 20:45 Dose: 4 mg Documented by: Prochlorperazine Edisylate (Prochlorperazine 10 Mg/2 Ml Vial) 5 mg IV Q6H PRN PRN PRN Reason: NAUSEA/VOMITING Last Admin: 09/19/20 03:24 Dose: 5 mg Documented by: Sodium Chloride (0.9% Nacl Peripheral Flush Adult/Peds) 5 - 15 ml IV UD PRN PRN Reason: SALINE FLUSH Last Admin: 09/18/20 20:45 Dose: 10 ml Documented by: Medical Necessity - Tobacco Use Smoking Status: Former smoker Assessment/Plan All Active Problems (Last Reviewed 09/14/20 @ 10:[address] Aramis Matthew MD) Bladder tumor (Acute) Bladder cancer (Acute) Incarcerated left inguinal hernia (Acute) Gross hematuria (Acute) Abrasion of right hand, initial encounter (Acute) Contusion of unspecified front wall of thorax, initial encounter (Acute) MERLE prerenal/ATN with persistent hypotension CKD baseline creatinine 1.8-2.4 invasive bladder cancer s/p laparoscopic converted to open radical cystoprostatectomy. Bilateral pelvic lymph node dissection and formation of a ileal conduit. s/p right inguinal hernia repair with mesh History of hypertension urine output is good cr is better electrolytes are ok renal US reviewed. some hydronephrosis in general is expected from ileal conduit. since cr is trending down can monitor
[2020-09-19] MEDS: 0.9% Normal Saline 1,000 ML 75 ML IV ×2 (09:55→21:58)
--- NOTE | 2020-09-19 10:34 | PCM.PROGNOTE ---
Patient Problems: Active and Suspected Problems (Last Reviewed 09/14/20 @ 10:[address] Aramis Matthew MD) Bladder cancer (Acute) Incarcerated left inguinal hernia (Acute) Subjective: 80-year-old male status post cystoscopy radical prostatectomy NG tube was removed however he had a lot of nausea vomiting so NG tube was placed KUB demonstrates tube is good position got dilated loops of small bowel. - Physical Exam Vitals/I&O's: Vital Signs Temp Pulse Resp BP Pulse Ox 98.3 F 89 18 149/88 H 98 09/19/20 09:03 09/19/20 09:44 09/19/20 09:03 09/19/20 09:03 09/19/20 09:03 Oxygen Flow Rate (L/min) 2 Oxygen Delivery Method Room Air Weight: 111.584 kg Body Mass Index (BMI) 34.2 Intake and Output for Last 24 Hours 09/17/20 09/18/20 09/19/20 23:59 23:59 23:59 Intake Total 3290.83 / 3290.83 3380.42 / 3380.42 1677.5 / 1677.5 Output Total 2265 / 2265 2650 / 3320 3360 / 3360 Balance 1025.83 / 1025.83 730.42 / 60.42 -1682.5 / -1682.5 General: Alert, Oriented x3, Cooperative HEENT: Atraumatic, PERRLA, EOMI, Normocephalic Neck: Supple, No JVD, Negative Carotid Bruits Lungs: Clear to auscultation, Normal air movement Cardiovascular: Regular rate, No murmurs Abdomen: Bowel Sounds Present, Soft, Non Tender Extremities: No edema, Capillary Refill Less than 3 Seconds Skin: No rashes, No breakdown Musculoskeletal: No Tenderness to Palpation of Joints or Extremities Neurological: Cranial nerves II-XII grossly intact Psych/Mental Status: Normal Affect, Appropriate Microbiology Past 72 Hours 09/15/20 13:10 Blood Culture (Wb) - Anticubital Left Blood Culture - Preliminary No growth in 48 hours. 09/15/20 13:00 Blood Culture (Wb) - Anticubital Right Blood Culture - Preliminary No growth in 48 hours. 09/15/20 13:40 Urine Catheter - Mcpherson Urine Culture - Final Culture exhibits no growth. Laboratory Results 09/19/20 05:15: WBC 11.1 H, RBC 3.42 L, Hgb 9.0 L, Hct 29.6 L, MCV 86.5, MCH 26.3 L, MCHC 30.4 L, RDW Std Deviation 49.1 H, RDW Coeff of Jeff 15.3 H, Plt Count 160, MPV 12.9 H 09/19/20 05:15: Sodium 148 H, Potassium 4.2, Chloride 115 H, Carbon Dioxide 25.0, Anion Gap 8, BUN 75 H, Creatinine 3.44 H, Estim Creat Clear Calc 17.94, Est GFR (MDRD) Af Amer 22 L, Est GFR (MDRD) Non-Af 18 L, BUN/Creatinine Ratio 21.8 H, Glucose 144 H, Calcium 8.7 Current Medications Acetaminophen (Acetaminophen 325 Mg Tablet) 325 - 650 mg PO Q4H PRN PRN PRN Reason: pain score 1-10/fever/headache Hydrocodone Bitart/Acetaminophen (Hydrocodone Bitartrate/Apap 5/325 Tablet) 1 - 2 tablet PO Q6H PRN PRN PRN Reason: Pain Score 1-5 Last Admin: 09/15/20 11:51 Dose: 1 tablet Documented by: Docusate Sodium (Docusate Sodium 100 Mg Capsule) 200 mg PO BID [facility] Last Admin: 09/19/20 09:44 Dose: 200 mg Documented by: Enoxaparin Sodium (Enoxaparin 30 Mg/0.3 Ml Syringe) 30 mg SC DAILY [facility] Last Admin: 09/19/20 09:44 Dose: 30 mg Documented by: Sodium Chloride () 250 mls @ 15 mls/hr IV .[id number] PRN PRN Reason: Saline Flush Sodium Chloride () 250 mls @ 15 mls/hr IV .[id number] PRN PRN Reason: Additional IVPB Infusion Cefepime HCl 0.5 gm/ Sodium (Chloride) 50 mls @ 100 mls/hr IV Q24 [facility] Last Admin: 09/19/20 09:57 Dose: 100 mls/hr Documented by: Sodium Chloride () 1,000 mls @ 75 mls/hr IV .[id number] [facility] Last Infusion: 09/19/20 09:57 Dose: 0 mls/hr Documented by: Magnesium Hydroxide (Magnesium Hydroxide 30 Ml Udc) 30 ml PO Q4H PRN PRN PRN Reason: Heartburn Metoclopramide HCl (Metoclopramide 10 Mg/2 Ml Vial) 10 mg IV Q8H PRN PRN PRN Reason: Nausea/vomiting Last Admin: 09/18/20 20:16 Dose: 10 mg Documented by: Metoprolol Tartrate (Metoprolol Tartrate 50 Mg Tablet) 50 mg PO BID [facility] Last Admin: 09/19/20 09:44 Dose: 50 mg Documented by: Morphine Sulfate (Morphine 2 Mg/Ml Syringe) 2 mg IV Q2H PRN PRN PRN Reason: Pain Score 6-10 Last Admin: 09/18/20 23:54 Dose: 2 mg Documented by: Ondansetron HCl (Ondansetron 4 Mg/2 Ml Vial) 4 mg IV Q8H PRN PRN Reason: Nausea Last Admin: 09/18/20 20:45 Dose: 4 mg Documented by: Prochlorperazine Edisylate (Prochlorperazine 10 Mg/2 Ml Vial) 5 mg IV Q6H PRN PRN PRN Reason: NAUSEA/VOMITING Last Admin: 09/19/20 03:24 Dose: 5 mg Documented by: Sodium Chloride (0.9% Nacl Peripheral Flush Adult/Peds) 5 - 15 ml IV UD PRN PRN Reason: SALINE FLUSH Last Admin: 09/18/20 20:45 Dose: 10 ml Documented by: Medical Necessity - Tobacco Use Smoking Status: Former smoker Assessment/Plan All Active Problems (Last Reviewed 09/14/20 @ 10:[address] Aramis Matthew MD) Bladder tumor (Acute) Bladder cancer (Acute) Incarcerated left inguinal hernia (Acute) Gross hematuria (Acute) Abrasion of right hand, initial encounter (Acute) Contusion of unspecified front wall of thorax, initial encounter (Acute) 80-year-old male status post cystoscopy radical prostatectomy urine output is steady abdomen is nice and soft however he has an ileus pattern with dilated loops of small bowel and some gas in the colon. He does report passing some gas in the stool yesterday but he failed the removal of NG tube so we will continue with NG tube decompression await for the bowels to resume function. Continue with physical therapy and rehab for strengthening encourage ambulation in the hallway and will have to give it time for his ileus to resolve his white count is normal his hemoglobin stable. Cultures were negative. He still on antibiotics. Stoma looks pink and intact incision looks clean and intact no signs of an infection SAMANTHA output is low again continue with decompression and await for the ileus to resolve.
--- NOTE | 2020-09-19 16:13 | PN_ITS ---
Patient Problems: Active and Suspected Problems (Last Reviewed 09/14/20 @ 10:[address] Aramis Matthew MD) Bladder cancer (Acute) Incarcerated left inguinal hernia (Acute) Subjective: NG tube placed for nausea and vomiting overnight. He had about 1800 cc out immediately upon insertion. Vitals/I&O's: Vital Signs Temp Pulse Resp BP Pulse Ox 98.3 F 89 18 149/88 H 98 09/19/20 09:03 09/19/20 15:15 09/19/20 09:03 09/19/20 09:03 09/19/20 09:03 Oxygen Flow Rate (L/min) 2 Oxygen Delivery Method Room Air Weight: 246 lb 0.01 oz Body Mass Index (BMI) 34.2 Intake and Output for Last 24 Hours 09/17/20 09/18/20 09/19/20 23:59 23:59 23:59 Intake Total 3290.83 / 3290.83 3380.42 / 3380.42 1827.5 / 1827.5 Output Total 2265 / 2265 2650 / 3320 3960 / 3960 Balance 1025.83 / 1025.83 730.42 / 60.42 -2132.5 / -2132.5 General: Alert, Oriented x3, Cooperative, No apparent distress, - - NG tube in place HEENT: Atraumatic, PERRLA, EOMI, Normocephalic Oral: Moist Mucosa Neck: Supple Lungs: Clear to auscultation, Normal air movement, No rhonchi, No wheeze, No rales, Diminished Cardiovascular: Regular rate, Regular Rhythm, Normal S1, Normal S2, No murmurs Abdomen: Soft, Non Tender, Non-Distended, No Hepato-splenomegaly Extremities: No edema, Capillary Refill Less than 3 Seconds Skin: No rashes, No breakdown Neurological: Neuro grossly intact, Sensory exam intact to light touch and pain Psych/Mental Status: Normal Affect, Appropriate Microbiology Past 72 Hours 09/15/20 13:10 Blood Culture (Wb) - Anticubital Left Blood Culture - Preliminary No growth in 48 hours. 09/15/20 13:00 Blood Culture (Wb) - Anticubital Right Blood Culture - Preliminary No growth in 48 hours. 09/15/20 13:40 Urine Catheter - Mcpherson Urine Culture - Final Culture exhibits no growth. Laboratory Results 09/19/20 05:15: WBC 11.1 H, RBC 3.42 L, Hgb 9.0 L, Hct 29.6 L, MCV 86.5, MCH 26.3 L, MCHC 30.4 L, RDW Std Deviation 49.1 H, RDW Coeff of Jeff 15.3 H, Plt Count 160, MPV 12.9 H 09/19/20 05:15: Sodium 148 H, Potassium 4.2, Chloride 115 H, Carbon Dioxide 25.0, Anion Gap 8, BUN 75 H, Creatinine 3.44 H, Estim Creat Clear Calc 17.94, Est GFR (MDRD) Af Amer 22 L, Est GFR (MDRD) Non-Af 18 L, BUN/Creatinine Ratio 21.8 H, Glucose 144 H, Calcium 8.7 Current Medications Acetaminophen (Acetaminophen 325 Mg Tablet) 325 - 650 mg PO Q4H PRN PRN PRN Reason: pain score 1-10/fever/headache Hydrocodone Bitart/Acetaminophen (Hydrocodone Bitartrate/Apap 5/325 Tablet) 1 - 2 tablet PO Q6H PRN PRN PRN Reason: Pain Score 1-5 Last Admin: 09/15/20 11:51 Dose: 1 tablet Documented by: Docusate Sodium (Docusate Sodium 100 Mg Capsule) 200 mg PO BID [facility] Last Admin: 09/19/20 09:44 Dose: 200 mg Documented by: Enoxaparin Sodium (Enoxaparin 30 Mg/0.3 Ml Syringe) 30 mg SC DAILY [facility] Last Admin: 09/19/20 09:44 Dose: 30 mg Documented by: Sodium Chloride () 250 mls @ 15 mls/hr IV .[id number] PRN PRN Reason: Saline Flush Sodium Chloride () 250 mls @ 15 mls/hr IV .[id number] PRN PRN Reason: Additional IVPB Infusion Cefepime HCl 0.5 gm/ Sodium (Chloride) 50 mls @ 100 mls/hr IV Q24 [facility] Last Infusion: 09/19/20 10:30 Dose: Infused Documented by: Sodium Chloride () 1,000 mls @ 75 mls/hr IV .[id number] [facility] Last Infusion: 09/19/20 10:30 Dose: 75 mls/hr Documented by: Magnesium Hydroxide (Magnesium Hydroxide 30 Ml Udc) 30 ml PO Q4H PRN PRN PRN Reason: Heartburn Metoclopramide HCl (Metoclopramide 10 Mg/2 Ml Vial) 10 mg IV Q8H PRN PRN PRN Reason: Nausea/vomiting Last Admin: 09/18/20 20:16 Dose: 10 mg Documented by: Metoprolol Tartrate (Metoprolol Tartrate 50 Mg Tablet) 50 mg PO BID [facility] Last Admin: 09/19/20 09:44 Dose: 50 mg Documented by: Morphine Sulfate (Morphine 2 Mg/Ml Syringe) 2 mg IV Q2H PRN PRN PRN Reason: Pain Score 6-10 Last Admin: 09/18/20 23:54 Dose: 2 mg Documented by: Ondansetron HCl (Ondansetron 4 Mg/2 Ml Vial) 4 mg IV Q8H PRN PRN Reason: Nausea Last Admin: 09/18/20 20:45 Dose: 4 mg Documented by: Prochlorperazine Edisylate (Prochlorperazine 10 Mg/2 Ml Vial) 5 mg IV Q6H PRN PRN PRN Reason: NAUSEA/VOMITING Last Admin: 09/19/20 03:24 Dose: 5 mg Documented by: Sodium Chloride (0.9% Nacl Peripheral Flush Adult/Peds) 5 - 15 ml IV UD PRN PRN Reason: SALINE FLUSH Last Admin: 09/18/20 20:45 Dose: 10 ml Documented by: STROKE Vital Signs/Narrative: Vital Signs Pulse 09/19/20 15:15 89 Medical Necessity - Tobacco Use Smoking Status: Former smoker Assessment/Plan All Active Problems (Last Reviewed 09/14/20 @ 10:[address] Aramis Matthew MD) Bladder tumor (Acute) Bladder cancer (Acute) Incarcerated left inguinal hernia (Acute) Gross hematuria (Acute) Abrasion of right hand, initial encounter (Acute) Contusion of unspecified front wall of thorax, initial encounter (Acute) 1. Invasive bladder cancer status post laparoscopic robotic assisted radical cystoprostatectomy with creation of ileal conduit 09/14/2020/incarcerated left inguinal hernia status post left inguinal hernia repair with mesh 09/14/2020/ileus/MERLE on CKD 4 -He had to have an NG tube placed overnight again because of his ileus -We will cautiously proceed awaiting resolution of his ileus. If output stabilizes can clamp tube and at that point trial some clears. -Management per primary -Appreciate nephrology recommendations and assistance 2. Leukocytosis -Likely reactive. Cultures are negative -We will discontinue antibiotics at this time we will continue to monitor temperature and white blood cell count 3. History of PVCs/NSVT/HTN/HLD -Asymptomatic -Echo in December 2019 demonstrated an EF of 65% with stage II diastolic dysfunction with an RVSP of 35 mmHg -Was following with [facility] cardiology -We will continue with his home metoprolol -We will hold his losartan secondary to his MERLE DVT: SCDs Inpatient E&M: 80022 Subs Hosp L2
[2020-09-20] VITALS (9 sets, daily range): BP systolic 123–158; BP diastolic 79–86; PULSE 81–102; RESP 16–18; TEMP 36.6–37.2; O2SAT 93–98
--- NOTE | 2020-09-20 07:04 | PCM.PN.BLA ---
Progress Note Postoperative day #6 status post radical cystoprostatectomy and formation ileal conduit urine output still good abdomen slightly distended but is nice and soft he now has bowel sounds in all quadrants but still sort of a squeaky high tinkling sound. He does report passing gas. Still has a lot of NG put output. On exam he is alert oriented x3 talking interactive, his abdomen soft with benign slightly distended, incisions clean and intact with riccardo, stoma is healthy looking urine output is adequate. Testicles are slightly swollen. And scrotum is swollen from edema. Lower extremities no clubbing sinus or edema SCDs in place. Status post radical cystoprostatectomy urine output is adequate awaiting full return of bowel function has some bowel sounds which is good today we will do NG clamp trials and continue with ambulation. STROKE Vital Signs/Narrative: Vital Signs Temp Pulse Resp BP Pulse Ox 09/20/20 03:05 98 F 81 18 123/80 H 95
[2020-09-20 07:52] LABS: Hematocrit 28.3 % (40-54); Hemoglobin 8.9 g/dL (13.0-16.5); Mean Corp Hgb Conc 31.4 g/dL (32-36); Mean Corpuscular Hgb 26.8 pg (27.0-32.0); Mean Corpuscular Volume 85.2 fL (80-94); Mean Platelet Vol. 11.6 fl (6.2-12.0); Platelet Count 194 K/mm3 (150-450); RBC Distribution Width CV 15.2 % (11.6-14.6); RBC Distribution Width SD 47.4 fl (35.1-43.9); Red Blood Count 3.32 M/mm3 (4.6-6.2); White Blood Count 7.7 K/mm3 (4.4-11.0)
[2020-09-20 08:17] LABS: Anion Gap 7 (5-15); BUN 76 mg/dL (7-18); BUN/Creat Ratio 25.3 RATIO (10-20); Calcium,Total 8.7 mg/dL (8.5-10.1); Chloride 117 mmol/L (98-107); EST Glomerular Filtration Rate 21 mL/min (>60); Est Glom Filt Rate - Afr Amer 26 mL/min (>60); Estimated Creatinine Clearance 20.57 ml/min; Glucose 94 mg/dL (74-106); Potassium 3.5 mmol/L (3.5-5.1); Sodium Level 155 mmol/L (136-145)
[2020-09-20] MEDS: Enoxaparin 30 MG/0.3 ML Syringe SC (08:37)
[2020-09-20] MEDS: Metoprolol Tartrate 50 MG Tablet PO ×2 (08:38→20:40)
[2020-09-20] MEDS: Docusate Sodium 100 MG Capsule 200 MG PO ×2 (08:38→20:41)
[2020-09-20] MEDS: Ondansetron 4 MG/2 ML Vial IV (09:10)
--- NOTE | 2020-09-20 10:46 | PCM.PN.HOSP ---
Patient Problems: Active and Suspected Problems (Last Reviewed 09/14/20 @ 10:[address] Aramis Matthew MD) Bladder cancer (Acute) Incarcerated left inguinal hernia (Acute) Subjective: Has bowel sounds so urology clamped his NG tube. He is also out of bed for the first time sitting in the chair and feels a little bit nauseated Vitals/I&O's: Vital Signs Temp Pulse Resp BP Pulse Ox 98.1 F 102 H 18 158/86 H 98 09/20/20 08:22 09/20/20 09:49 09/20/20 08:22 09/20/20 08:22 09/20/20 08:22 Oxygen Flow Rate (L/min) 2 Oxygen Delivery Method Room Air Weight: 246 lb 0.01 oz Body Mass Index (BMI) 34.2 Intake and Output for Last 24 Hours 09/18/20 09/19/20 09/20/20 23:59 23:59 23:59 Intake Total 3380.42 / 3380.42 2747.5 / 2847.5 175 / 175 Output Total 2650 / 3320 5480 / 7430 3150 / 3150 Balance 730.42 / 60.42 -2732.5 / -4582.5 -2975 / -2975 General: Alert, Oriented x3, Cooperative, No apparent distress, - - NG tube in place HEENT: Atraumatic, PERRLA, EOMI, Normocephalic Oral: Moist Mucosa Neck: Supple Lungs: Clear to auscultation, Normal air movement, No rhonchi, No wheeze, No rales, Diminished Cardiovascular: Regular rate, Regular Rhythm, Normal S1, Normal S2, No murmurs Abdomen: Soft, Non Tender, Non-Distended, No Hepato-splenomegaly Extremities: No edema, Capillary Refill Less than 3 Seconds Skin: No rashes, No breakdown Neurological: Neuro grossly intact, Sensory exam intact to light touch and pain Psych/Mental Status: Normal Affect, Appropriate Microbiology Past 72 Hours 09/15/20 13:10 Blood Culture (Wb) - Anticubital Left Blood Culture - Preliminary No growth in 48 hours. 09/15/20 13:00 Blood Culture (Wb) - Anticubital Right Blood Culture - Preliminary No growth in 48 hours. 09/15/20 13:40 Urine Catheter - Mcpherson Urine Culture - Final Culture exhibits no growth. Laboratory Results 09/20/20 07:16: WBC 7.7, RBC 3.32 L, Hgb 8.9 L, Hct 28.3 L, MCV 85.2, MCH 26.8 L, MCHC 31.4 L, RDW Std Deviation 47.4 H, RDW Coeff of Jeff 15.2 H, Plt Count 194, MPV 11.6 09/20/20 07:16: Sodium 155 H, Potassium 3.5, Chloride 117 H, Carbon Dioxide 31.0, Anion Gap 7, BUN 76 H, Creatinine 3.00 H, Estim Creat Clear Calc 20.57, Est GFR (MDRD) Af Amer 26 L, Est GFR (MDRD) Non-Af 21 L, BUN/Creatinine Ratio 25.3 H, Glucose 94, Calcium 8.7 Current Medications Acetaminophen (Acetaminophen 325 Mg Tablet) 325 - 650 mg PO Q4H PRN PRN PRN Reason: pain score 1-10/fever/headache Hydrocodone Bitart/Acetaminophen (Hydrocodone Bitartrate/Apap 5/325 Tablet) 1 - 2 tablet PO Q6H PRN PRN PRN Reason: Pain Score 1-5 Last Admin: 09/15/20 11:51 Dose: 1 tablet Documented by: Docusate Sodium (Docusate Sodium 100 Mg Capsule) 200 mg PO BID [facility] Last Admin: 09/20/20 08:38 Dose: 200 mg Documented by: Enoxaparin Sodium (Enoxaparin 30 Mg/0.3 Ml Syringe) 30 mg SC DAILY [facility] Last Admin: 09/20/20 08:37 Dose: 30 mg Documented by: Sodium Chloride () 250 mls @ 15 mls/hr IV .[id number] PRN PRN Reason: Saline Flush Sodium Chloride () 250 mls @ 15 mls/hr IV .[id number] PRN PRN Reason: Additional IVPB Infusion Sodium Chloride () 1,000 mls @ 75 mls/hr IV .[id number] [facility] Last Admin: 09/19/20 21:58 Dose: 75 mls/hr Documented by: Magnesium Hydroxide (Magnesium Hydroxide 30 Ml Udc) 30 ml PO Q4H PRN PRN PRN Reason: Heartburn Metoclopramide HCl (Metoclopramide 10 Mg/2 Ml Vial) 10 mg IV Q8H PRN PRN PRN Reason: Nausea/vomiting Last Admin: 09/18/20 20:16 Dose: 10 mg Documented by: Metoprolol Tartrate (Metoprolol Tartrate 50 Mg Tablet) 50 mg PO BID [facility] Last Admin: 09/20/20 08:38 Dose: 50 mg Documented by: Morphine Sulfate (Morphine 2 Mg/Ml Syringe) 2 mg IV Q2H PRN PRN PRN Reason: Pain Score 6-10 Last Admin: 09/18/20 23:54 Dose: 2 mg Documented by: Ondansetron HCl (Ondansetron 4 Mg/2 Ml Vial) 4 mg IV Q8H PRN PRN Reason: Nausea Last Admin: 09/20/20 09:10 Dose: 4 mg Documented by: Prochlorperazine Edisylate (Prochlorperazine 10 Mg/2 Ml Vial) 5 mg IV Q6H PRN PRN PRN Reason: NAUSEA/VOMITING Last Admin: 09/19/20 03:24 Dose: 5 mg Documented by: Sodium Chloride (0.9% Nacl Peripheral Flush Adult/Peds) 5 - 15 ml IV UD PRN PRN Reason: SALINE FLUSH Last Admin: 09/18/20 20:45 Dose: 10 ml Documented by: STROKE Vital Signs/Narrative: Vital Signs Temp Pulse Resp BP Pulse Ox 09/20/20 09:49 102 H 09/20/20 08:38 83 09/20/20 08:22 98.1 F 83 18 158/86 H 98 Medical Necessity - Tobacco Use Smoking Status: Former smoker Assessment/Plan All Active Problems (Last Reviewed 09/14/20 @ 10:[address] Aramis Matthew MD) Bladder tumor (Acute) Bladder cancer (Acute) Incarcerated left inguinal hernia (Acute) Gross hematuria (Acute) Abrasion of right hand, initial encounter (Acute) Contusion of unspecified front wall of thorax, initial encounter (Acute) 1. Invasive bladder cancer status post laparoscopic robotic assisted radical cystoprostatectomy with creation of ileal conduit 09/14/2020/incarcerated left inguinal hernia status post left inguinal hernia repair with mesh 09/14/2020/ileus/MERLE on CKD 4 -He had to have an NG tube placed overnight again because of his ileus. -We will cautiously proceed awaiting resolution of his ileus. This tube was clamped and he has a little bit of nausea sitting in the chair. We will continue to monitor if his nausea resolves and he continues passing flatus then can likely start him on a clear liquid diet. If he has not tolerate clamping would consult general surgery -Management per primary -Appreciate nephrology recommendations and assistance 2. Leukocytosis -Likely reactive. Cultures are negative -We will discontinue antibiotics at this time we will continue to monitor temperature and white blood cell count 3. History of PVCs/NSVT/HTN/HLD -Asymptomatic -Echo in December 2019 demonstrated an EF of 65% with stage II diastolic dysfunction with an RVSP of 35 mmHg -Was following with [facility] cardiology -We will continue with his home metoprolol -We will hold his losartan secondary to his MERLE DVT: SCDs Inpatient E&M: 10920 Subs Hosp L2
[2020-09-20] MEDS: Metoclopramide 10 MG/2 ML Vial IV (11:17)
[2020-09-20] MEDS: 0.9% Normal Saline 1,000 ML 75 ML IV (11:17)
--- NOTE | 2020-09-20 11:50 | NURSING ---
Pt sitting up in chair. states still not feeling well. still nauseated. NG tube in place. urostomy appliance intact. urine slightly bloody today. will continue to follow. pt may need NH placement at discharge prior to going home if patient is still weak.
--- NOTE | 2020-09-20 12:21 | PCM.PN.BLA ---
Progress Note Still nauseated this morning so we will put him back to intermittent wall suction low intermittent suction. Again to get a KUB to check the progress of what appears to be an ileus. He did have a bowel sounds and his abdomen is fairly soft and he did report passing some flatus so somewhat of a confusing picture we will get a KUB continue with low intermittent suction on the NG tube. STROKE Vital Signs/Narrative: Vital Signs Pulse 09/20/20 09:49 102 H 09/20/20 08:38 83
--- NOTE | 2020-09-20 12:23 | RAD_ITS ---
STUDY: X-RAY - ABDOMEN/PELVIS REASON FOR EXAM: Male, 80 years old. ileus. TECHNIQUE: 3 frontal supine views of the abdomen. COMPARISON: Prior day FINDINGS: Normal visualized lung bases. Interval worsening of diffuse gaseous distention of bowel. Enteric tube overlies the left upper quadrant. There is a partially visualized right ureteral stent. Drains overlie the pelvis. Surgical skin riccardo are noted. Normal soft tissue structures. Normal visualized osseous structures. RAD/Abdomen Single View IMPRESSION: Interval worsening gaseous distention of small bowel may indicate obstruction in the appropriate clinical setting. Electronically Signed: Octavio Vidal, at 19:54 EST Tel , Service support ,
[2020-09-20] MEDS: Potassium Chloride 10 MEQ in Dext 5%-0.45% NS 1,000 ML 75 MEQ IV (12:41)
--- NOTE | 2020-09-20 13:49 | PN.RENAL_ITS ---
Patient Problems: Active and Suspected Problems (Last Reviewed 09/14/20 @ 10:[address] Aramis Matthew MD) Bladder cancer (Acute) Incarcerated left inguinal hernia (Acute) Subjective: no new events still passing gas has bowel sounds on exam however developed nausea with NG tube clamped - Physical Exam Vitals/I&O's: Vital Signs Temp Pulse Resp BP Pulse Ox 98.1 F 102 H 18 158/86 H 98 09/20/20 08:22 09/20/20 09:49 09/20/20 08:22 09/20/20 08:22 09/20/20 08:22 Oxygen Flow Rate (L/min) 2 Oxygen Delivery Method Room Air Weight: 111.584 kg Body Mass Index (BMI) 34.2 Intake and Output for Last 24 Hours 09/18/20 09/19/20 09/20/20 23:59 23:59 23:59 Intake Total 3380.42 / 3380.42 2747.5 / 2847.5 1330.00 / 1330.00 Output Total 2650 / 3320 5480 / 7430 3450 / 3450 Balance 730.42 / 60.42 -2732.5 / -4582.5 -2120.00 / -2120.00 General: Alert, Oriented x3, Cooperative HEENT: Atraumatic, PERRLA, EOMI, Normocephalic Neck: Supple, No JVD, Negative Carotid Bruits Lungs: Clear to auscultation, Normal air movement Cardiovascular: Regular rate, No murmurs Abdomen: Bowel Sounds Present, Soft, Non Tender Extremities: No edema, Capillary Refill Less than 3 Seconds Skin: No rashes, No breakdown Musculoskeletal: No Tenderness to Palpation of Joints or Extremities Neurological: Cranial nerves II-XII grossly intact Psych/Mental Status: Normal Affect, Appropriate Microbiology Past 72 Hours 09/15/20 13:10 Blood Culture (Wb) - Anticubital Left Blood Culture - Final No growth in 5 days. 09/15/20 13:00 Blood Culture (Wb) - Anticubital Right Blood Culture - Final No growth in 5 days. 09/15/20 13:40 Urine Catheter - Mcpherson Urine Culture - Final Culture exhibits no growth. Laboratory Results 09/20/20 07:16: WBC 7.7, RBC 3.32 L, Hgb 8.9 L, Hct 28.3 L, MCV 85.2, MCH 26.8 L , MCHC 31.4 L, RDW Std Deviation 47.4 H, RDW Coeff of Jeff 15.2 H, Plt Count 194, MPV 11.6 09/20/20 07:16: Sodium 155 H, Potassium 3.5, Chloride 117 H, Carbon Dioxide 31.0, Anion Gap 7, BUN 76 H, Creatinine 3.00 H, Estim Creat Clear Calc 20.57, Est GFR (MDRD) Af Amer 26 L, Est GFR (MDRD) Non-Af 21 L, BUN/Creatinine Ratio 25.3 H, Glucose 94, Calcium 8.7 Current Medications Acetaminophen (Acetaminophen 325 Mg Tablet) 325 - 650 mg PO Q4H PRN PRN PRN Reason: pain score 1-10/fever/headache Hydrocodone Bitart/Acetaminophen (Hydrocodone Bitartrate/Apap 5/325 Tablet) 1 - 2 tablet PO Q6H PRN PRN PRN Reason: Pain Score 1-5 Last Admin: 09/15/20 11:51 Dose: 1 tablet Documented by: Docusate Sodium (Docusate Sodium 100 Mg Capsule) 200 mg PO BID [facility] Last Admin: 09/20/20 08:38 Dose: 200 mg Documented by: Enoxaparin Sodium (Enoxaparin 30 Mg/0.3 Ml Syringe) 30 mg SC DAILY [facility] Last Admin: 09/20/20 08:37 Dose: 30 mg Documented by: Sodium Chloride () 250 mls @ 15 mls/hr IV .[id number] PRN PRN Reason: Saline Flush Sodium Chloride () 250 mls @ 15 mls/hr IV .[id number] PRN PRN Reason: Additional IVPB Infusion Potassium Chloride 10 meq/ (Dextrose/Sodium Chloride) 1,005 mls @ 75 mls/hr IV .[id number] [facility] Last Admin: 09/20/20 12:41 Dose: 75 mls/hr Documented by: Magnesium Hydroxide (Magnesium Hydroxide 30 Ml Udc) 30 ml PO Q4H PRN PRN PRN Reason: Heartburn Metoclopramide HCl (Metoclopramide 10 Mg/2 Ml Vial) 10 mg IV Q8H PRN PRN PRN Reason: Nausea/vomiting Last Admin: 09/20/20 11:17 Dose: 10 mg Documented by: Metoprolol Tartrate (Metoprolol Tartrate 50 Mg Tablet) 50 mg PO BID [facility] Last Admin: 09/20/20 08:38 Dose: 50 mg Documented by: Morphine Sulfate (Morphine 2 Mg/Ml Syringe) 2 mg IV Q2H PRN PRN PRN Reason: Pain Score 6-10 Last Admin: 09/18/20 23:54 Dose: 2 mg Documented by: Ondansetron HCl (Ondansetron 4 Mg/2 Ml Vial) 4 mg IV Q8H PRN PRN Reason: Nausea Last Admin: 09/20/20 09:10 Dose: 4 mg Documented by: Prochlorperazine Edisylate (Prochlorperazine 10 Mg/2 Ml Vial) 5 mg IV Q6H PRN PRN PRN Reason: NAUSEA/VOMITING Last Admin: 09/19/20 03:24 Dose: 5 mg Documented by: Sodium Chloride (0.9% Nacl Peripheral Flush Adult/Peds) 5 - 15 ml IV UD PRN PRN Reason: SALINE FLUSH Last Admin: 09/18/20 20:45 Dose: 10 ml Documented by: Medical Necessity - Tobacco Use Smoking Status: Former smoker Assessment/Plan All Active Problems (Last Reviewed 09/14/20 @ 10:[address] Aramis Matthew MD) Bladder tumor (Acute) Bladder cancer (Acute) Incarcerated left inguinal hernia (Acute) Gross hematuria (Acute) Abrasion of right hand, initial encounter (Acute) Contusion of unspecified front wall of thorax, initial encounter (Acute) MERLE prerenal/ATN with persistent hypotension CKD baseline creatinine 1.8-2.4 invasive bladder cancer s/p laparoscopic converted to open radical cystoprostatectomy. Bilateral pelvic lymph node dissection and formation of a ileal conduit. s/p right inguinal hernia repair with mesh History of hypertension urine output is good cr is better renal US showed some hydronephrosis in general is expected from ileal conduit. hypernatremia. fluids changed to D5W today. patient is also eating ice chips. NG tube is still present
--- NOTE | 2020-09-20 14:19 | CT_ITS ---
STUDY: CT ABDOMEN AND PELVIS WITHOUT CONTRAST REASON FOR EXAM: Male, 80 years old. ABD DISTENTION, HAS NG, INVASIVE BLADDER CA, S/P CYSTOPROSTATECTOMY WITH ILEAL CONDUIT, LT INGUINAL HERNIA, HTN RADIATION DOSAGE (If Supplied By Facility): CTDIvol = ( 15.88 ) mGy, DLP = ( 1667.74 ) mGycm TECHNIQUE: Transaxial images were obtained from the dome of the diaphragm to the symphysis pubis without oral contrast, and without intravenous contrast. Sagittal and coronal images were reconstructed. Individualized dose optimization techniques were used for this CT. COMPARISON: 08/06/2020 FINDINGS: The visualized lung bases are unremarkable. The visualized portions of the heart are within normal limits. Normal liver. Normal gallbladder and extrahepatic biliary system. Normal spleen. Normal pancreas. Normal bilateral adrenal glands. Right ureteral stent without hydronephrosis, ureteral dilatation, or ureteral stone. Left the ureteral stent which has migrated with the proximal pigtail in the distal ureter and the remainder of the stent within the ileal conduit. Moderate left hydronephrosis and ureteral dilatation. No ureteral stone. Nasogastric tube with the tip in the body the stomach. Mildly distended stomach. Multiple loops of moderately dilated small bowel with air-fluid levels consistent with a small bowel obstruction. The transition point not clearly identified. Normal colon. There is non-visualization of the appendix. Normal abdominal aorta. Normal inferior vena cava. Normal retroperitoneum. Status post cystectomy with creation of a right lower quadrant ileal conduit which contains a Mcpherson catheter. Left-sided surgical drain. No likely a fluid collection to suggest postoperative seroma, hematoma, or abscess. Normal abdominal wall. Mild dextroscoliosis of the lumbar spine. CT/Abdomen/Pelvis without Cont IMPRESSION: 1. Interval cystectomy with creation of right lower quadrant ileal conduit which contains a Mcpherson catheter. There are bilateral ureteral stents with migration of the left ureteral stent into the distal ureter and the conduit with moderate ureteral dilatation and hydronephrosis. 2. Nasogastric tube with the tip in the body the stomach. 3. Moderate small bowel obstruction with the transition point not clearly identified. 4. Surgical drain in the left side of the pelvis without seroma, hematoma, or abscess. Electronically Signed: Lorenzo Abbasi MD at 17:03 EST Tel , Service support ,
--- NOTE | 2020-09-20 17:30 | PN_ITS ---
Progress Note 80-year-old male status post cystoscopy radical prostatectomy CT scan was done today for a prolonged ileus on review of the CAT scan I see dilated loops of small bowel no transition point looks more of an ileus pattern I do not see any free fluid in the abscess formation the drain is in place his left stent has migrated but will leave this alone the right stent in good position. Still has NG tube to suction and appears to have still an ileus pattern belly soft his white count was normal this point there is no sign of injury or any other i nternal process going on I think he just has a prolonged ileus will continue with NG decompression ambulation as tolerated and await return of function. This was reviewed with the patient. Also spoke to the hospitalist service. STROKE Vital Signs/Narrative: Vital Signs Temp Pulse Resp BP Pulse Ox 09/20/20 17:24 84 09/20/20 14:22 98.0 F 94 18 139/86 H 98
[2020-09-21] VITALS (15 sets, daily range): BP systolic 132–149; BP diastolic 70–90; PULSE 75–98; RESP 16–20; TEMP 36.3–37.1; O2SAT 92–98; BMI 34.2
[2020-09-21] MEDS: Potassium Chloride 10 MEQ in Dext 5%-0.45% NS 1,000 ML 75 MEQ IV (00:36)
--- NOTE | 2020-09-21 06:29 | RAD_ITS ---
STUDY: X-RAY - ABDOMEN/PELVIS REASON FOR EXAM: Male, 80 years old. ilius TECHNIQUE: Single AP view of the abdomen / pelvis. COMPARISON: 09/20/2020 FINDINGS: Skin riccardo in midline consistent with recent abdominal surgery. Nasogastric tube coiled in left upper quadrant likely in the body the stomach. Bilateral ureteral stents with the distal migration of the left ureteral stent. Surgical drain in the pelvis. No change in the multiple loops of dilated air-filled small bowel worrisome for a moderate small bowel obstruction. The visualized liver, spleen and kidneys are grossly normal in size and morphology. Normal soft tissue structures. Normal visualized osseous structures. RAD/Abdomen Single View IMPRESSION: No change in moderate small bowel obstruction. Electronically Signed: Lorenzo Abbasi MD at 9:28 EST Tel , Service support ,
--- NOTE | 2020-09-21 06:31 | PCM.PN.BLA ---
Progress Note Postoperative day #7 status post open radical prostatectomy and formation ileal conduit. CAT scan yesterday was reviewed so was the report. There is no free fluid there is no abscess he does have dilated loops of small bowel but on serial clear transition point. He has gas and stool in the colon. On examination his abdomen is actually really soft is not tender has the NG tube in place still has a lot of output from the NG tube. On exam exam you can hear some bowel sounds and the abdomen. He also reports passing flatus. Postoperative day #7 continues with an ileus. Not sure what is causing the ileus but there is no signs of urine leak. At this point recommend he try to ambulate as much as possible we will clamp the NG tube for ambulation and check a KUB today to see if his small bowel dilation is progressing or getting worse or resolving. I want to continue with NG decompression. If we repeat a CAT scan we if I should do it with oral Gastrografin but as of now I do not see reason to repeat the CAT scan his clinical picture certainly sounds like an ileus after surgery. STROKE Vital Signs/Narrative: Vital Signs Temp Pulse Resp BP Pulse Ox 09/21/20 04:23 83 09/21/20 03:10 98.2 F 81 20 H 145/73 H 92
[2020-09-21 07:50] LABS: Anion Gap 5 (5-15); BUN 74 mg/dL (7-18); Calcium,Total 8.8 mg/dL (8.5-10.1); Chloride 115 mmol/L (98-107); Creatinine, Serum 2.85 mg/dL (0.70-1.30); EST Glomerular Filtration Rate 23 mL/min (>60); Est Glom Filt Rate - Afr Amer 28 mL/min (>60); Estimated Creatinine Clearance 21.65 ml/min; Glucose 134 mg/dL (74-106); Potassium 3.3 mmol/L (3.5-5.1); Sodium Level 154 mmol/L (136-145)
--- NOTE | 2020-09-21 08:01 | PN.RENAL_ITS ---
Patient Problems: Active and Suspected Problems (Last Reviewed 09/14/20 @ 10:[address] Aramis Matthew MD) Bladder cancer (Acute) Incarcerated left inguinal hernia (Acute) Subjective: no new complaints - Physical Exam Vitals/I&O's: Vital Signs Temp Pulse Resp BP Pulse Ox 98.2 F 79 20 H 145/73 H 92 09/21/20 03:10 09/21/20 05:34 09/21/20 03:10 09/21/20 03:10 09/21/20 03:10 Oxygen Flow Rate (L/min) 2 Oxygen Delivery Method Room Air Weight: 111.584 kg Body Mass Index (BMI) 34.2 Intake and Output for Last 24 Hours 09/19/20 09/20/20 09/21/20 23:59 23:59 23:59 Intake Total 2747.5 / 2847.5 1500.00 / 1500.00 943.75 / 943.75 Output Total 5480 / 7430 4700 / 4700 3454 / 3454 Balance -2732.5 / -4582.5 -3200.00 / -3200.00 -2510.25 / -2510.25 General: Alert, Oriented x3, Cooperative HEENT: Atraumatic, PERRLA, EOMI, Normocephalic Neck: Supple, No JVD, Negative Carotid Bruits Lungs: Clear to auscultation, Normal air movement Cardiovascular: Regular rate, No murmurs Abdomen: Bowel Sounds Present, Soft, Non Tender Extremities: No edema, Capillary Refill Less than 3 Seconds Skin: No rashes, No breakdown Musculoskeletal: No Tenderness to Palpation of Joints or Extremities Neurological: Cranial nerves II-XII grossly intact Psych/Mental Status: Normal Affect, Appropriate Microbiology Past 72 Hours 09/15/20 13:10 Blood Culture (Wb) - Anticubital Left Blood Culture - Final No growth in 5 days. 09/15/20 13:00 Blood Culture (Wb) - Anticubital Right Blood Culture - Final No growth in 5 days. Laboratory Results 09/20/20 07:16: Sodium 155 H, Potassium 3.5, Chloride 117 H, Carbon Dioxide 31.0, Anion Gap 7, BUN 76 H, Creatinine 3.00 H, Estim Creat Clear Calc 20.57, Est GFR (MDRD) Af Amer 26 L, Est GFR (MDRD) Non-Af 21 L, BUN/Creatinine Ratio 25.3 H, Glucose 94, Calcium 8.7 09/21/20 07:06: Sodium 154 H, Potassium 3.3 L, Chloride 115 H, Carbon Dioxide 34.0 H, Anion Gap 5, BUN 74 H, Creatinine 2.85 H, Estim Creat Clear Calc 21.65, Est GFR (MDRD) Af Amer 28 L, Est GFR (MDRD) Non-Af 23 L, BUN/Creatinine Ratio 26.0 H, Glucose 134 H, Calcium 8.8 Current Medications Acetaminophen (Acetaminophen 325 Mg Tablet) 325 - 650 mg PO Q4H PRN PRN PRN Reason: pain score 1-10/fever/headache Docusate Sodium (Docusate Sodium 100 Mg Capsule) 200 mg PO BID [facility] Last Admin: 09/20/20 20:41 Dose: 200 mg Documented by: Enoxaparin Sodium (Enoxaparin 30 Mg/0.3 Ml Syringe) 30 mg SC DAILY [facility] Last Admin: 09/20/20 08:37 Dose: 30 mg Documented by: Sodium Chloride () 250 mls @ 15 mls/hr IV .[id number] PRN PRN Reason: Saline Flush Sodium Chloride () 250 mls @ 15 mls/hr IV .[id number] PRN PRN Reason: Additional IVPB Infusion Metoclopramide HCl (Metoclopramide 10 Mg/2 Ml Vial) 5 mg IV Q6 [facility] Metoprolol Tartrate (Metoprolol Tartrate 50 Mg Tablet) 50 mg PO BID [facility] Last Admin: 09/20/20 20:40 Dose: 50 mg Documented by: Ondansetron HCl (Ondansetron 4 Mg/2 Ml Vial) 4 mg IV Q8H PRN PRN Reason: Nausea Last Admin: 09/20/20 09:10 Dose: 4 mg Documented by: Prochlorperazine Edisylate (Prochlorperazine 10 Mg/2 Ml Vial) 5 mg IV Q6H PRN PRN PRN Reason: NAUSEA/VOMITING Last Admin: 09/19/20 03:24 Dose: 5 mg Documented by: Sodium Chloride (0.9% Nacl Peripheral Flush Adult/Peds) 5 - 15 ml IV UD PRN PRN Reason: SALINE FLUSH Last Admin: 09/18/20 20:45 Dose: 10 ml Documented by: Medical Necessity - Tobacco Use Smoking Status: Former smoker Assessment/Plan All Active Problems (Last Reviewed 09/14/20 @ 10:[address] Aramis Matthew MD) Bladder tumor (Acute) Bladder cancer (Acute) Incarcerated left inguinal hernia (Acute) Gross hematuria (Acute) Abrasion of right hand, initial encounter (Acute) Contusion of unspecified front wall of thorax, initial encounter (Acute) MERLE prerenal/ATN with persistent hypotension CKD baseline creatinine 1.8-2.4 invasive bladder cancer s/p laparoscopic converted to open radical cystoprostatectomy. Bilateral pelvic lymph node dissection and formation of a ileal conduit. s/p right inguinal hernia repair with mesh History of hypertension urine output is good cr is better renal US showed some hydronephrosis in general is expected from ileal conduit. hypernatremia Hypokalemia Plan change fluids to D5W plus KCL and increase rate
--- NOTE | 2020-09-21 08:01 | NURSING ---
Urostomy appliance removed. stoma remains beefy red and well budded. peristomal skin is intact. red rubber catheter remains in the stoma as well. cleansed skin with warm water. pat dry. applied a new flat 2 piece Aurelio appliance. pt tolerated well.
--- NOTE | 2020-09-21 09:10 | RAD_ITS ---
STUDY: SMALL BOWEL FOLLOW-THROUGH EXAMINATION. REASON FOR EXAM: Male, 80 years old. BOWEL OBSTRUCTION FLUOROSCOPY TIME (if supplied): ( 30 seconds ) minutes/seconds. TECHNIQUE: GASTROGRAFIN was introduced into the indwelling NG tube. COMPARISON: None. FINDINGS: Small bowel dilatation. 200 cc of the GASTROGRAFIN was introduced through the NG tube. The contrast remained in the stomach up to one hour and 40 minutes following the introduction of the GASTROGRAFIN. Despite placing the patient on right side down decubitus position, the oral contrast did not progress. RAD/Small Bowel Series Only IMPRESSION: Small bowel obstruction. The GASTROGRAFIN remained within the stomach. Electronically Signed: Jesus Carver, at 14:04 EST , Service support ,
--- NOTE | 2020-09-21 09:12 | PCM.PN.BLA ---
Progress Note KUB today still demonstrates an obstructive pattern in the small bowel with very dilated loops of small bowel NG output is very high and is decompressing the stomach. Discussed case with general surgery at this point we can order a Gastrografin small bowel follow-through but depending on what that shows we may have to take the patient back urgently for exploration possible obstruction of the small bowel the reason why still not clear. STROKE Vital Signs/Narrative: Vital Signs Pulse 09/21/20 05:34 79
--- NOTE | 2020-09-21 11:18 | PCM.NTREPORT ---
Nutrition Therapy Report - History Nutrition Services has been consulted to:: Manage parenteral nutrition Current diet / nutrition support order:: NPO - Anthropometric Measurements Height:: 5 ft 11 in Weight:: 111.584 kg Body Mass Index (BMI):: 34.2 - Relevant Labs Relevant Labs:: WBC 11.1 K/mm3 (4.4-11.0) H 09/19/20 05:15 RBC 3.32 M/mm3 (4.6-6.2) L 09/20/20 07:16 Hgb 8.9 g/dL (13.0-16.5) L 09/20/20 07:16 Hct 28.3 % (40-54) L 09/20/20 07:16 MCH 26.8 pg (27.0-32.0) L 09/20/20 07:16 MCHC 31.4 g/dL (32-36) L 09/20/20 07:16 RDW Std Deviation 47.4 fl (35.1-43.9) H 09/20/20 07:16 RDW Coeff of Jeff 15.2 % (11.6-14.6) H 09/20/20 07:16 Plt Count 104 K/mm3 (150-450) L 09/18/20 06:16 MPV 12.9 fl (6.2-12.0) H 09/19/20 05:15 Sodium 154 mmol/L (136-145) H 09/21/20 07:06 Potassium 3.3 mmol/L (3.5-5.1) L 09/21/20 07:06 Chloride 115 mmol/L (98-107) H 09/21/20 07:06 Carbon Dioxide 34.0 mmol/L (21.0-32.0) H 09/21/20 07:06 BUN 74 mg/dL (7-18) H 09/21/20 07:06 Creatinine 2.85 mg/dL (0.70-1.30) H 09/21/20 07:06 Est GFR (MDRD) Af Amer 28 mL/min (>60) L 09/21/20 07:06 Est GFR (MDRD) Non-Af 23 mL/min (>60) L 09/21/20 07:06 BUN/Creatinine Ratio 26.0 RATIO (10-20) H 09/21/20 07:06 Glucose 134 mg/dL (74-106) H 09/21/20 07:06 Calcium 8.3 mg/dL (8.5-10.1) L 09/17/20 05:39 AST 10 U/L (15-37) L 09/12/20 13:52 - Assessment Food / Nutrition-Related History:: NPO day #7. N[address] for decompression. NG clamped yesterday but pt w/ ongoing nausea. Discussed w/ LIAM Gomez- reported significant NGT output overnight, >2L and >700mL over 4 [address] AM. Per Dr. Matthew, currently having a Gastrografin small bowel follow-through w/ plans for ex. lap. later this afternoon pending results of Gastrografin study. No new wt to assess. - Nutrition Diagnosis Problem / Etiology / Signs & Symptoms (PES):: Inadequate oral intake related to GI dysfunction as evidenced by PO intake meeting less than 50% of estimated nutritional needs x 1 week. - Nutrition Intervention Nutrition Prescription:: Estimated energy needs: 5910-7525 calories, 110-135g protein/day. However, d/t refeeding risk will aim for 10-15 kcal/kg/day (2263-6559 calories). - Food / Nutrient Delivery Interventions Summary of nutrition intervention:: Pt w/ risk for malnutrition given inadequate oral intake and wt loss over past 6-8 weeks [employer]. Minimal PO intake over past 7 days, also places pt at significant risk for refeeding syndrome. RN discussed w/ hospitalist- will get PICC today w/ plans for TPN after surgery. RDN consulted to manage TPN. Nutrition support ordered as / adjusted to:: Consulted by provider to order/manage TPN- 2L @84mL/hour 4.25% AA/10% dextrose solution w/ electrolytes/MVI/trace minerals to provide 1020 calories, 200 g dextrose, 84 g AA. No insulin or famotidine in TPN per physician order. Will order appropriate labs for monitoring of TPN, signs/symptoms of refeeding syndrome. Will order daily wts. - MNT Monitoring Further MNT monitoring and evaluation required?: Yes MNT Follow-up in:: 1-2 days - RDN will continue to manage/order TPN as renewed daily by physician
[2020-09-21] MEDS: Metoprolol Tartrate 5 MG/5 ML Vial IV ×3 (12:30→23:27)
[2020-09-21] MEDS: 0.9% NaCl Peripheral Flush Adult/Peds IV ×4 (12:30→17:58)
[2020-09-21] MEDS: Potassium Chloride 10mEq/100mL 10 MEQ/100 ML IV.SOLN. 100 MEQ IV BOLUS ×2 (12:33→13:39)
[2020-09-21] MEDS: Metoclopramide 10 MG/2 ML Vial 5 MG IV ×3 (12:39→23:26)
--- NOTE | 2020-09-21 13:07 | NURSING ---
daughter Irina [phone]
--- NOTE | 2020-09-21 14:50 | NURSING ---
Verbal report called to Sruthi in [place]
--- NOTE | 2020-09-21 21:39 | PCM.PN.HOSP ---
Patient Problems: Active and Suspected Problems (Last Reviewed 09/14/20 @ 10:[address] Aramis Matthew MD) Bladder cancer (Acute) Incarcerated left inguinal hernia (Acute) Subjective: Still little bit nauseated with almost 3.5 L of gastric drainage today Vitals/I&O's: Vital Signs Temp Pulse Resp BP Pulse Ox 97.4 F L 84 18 141/72 H 92 09/21/20 17:57 09/21/20 17:58 09/21/20 17:57 09/21/20 17:58 09/21/20 17:57 Oxygen Flow Rate (L/min) 2 Oxygen Delivery Method Room Air Weight: 246 lb 0.01 oz Body Mass Index (BMI) 34.2 Intake and Output for Last 24 Hours 09/19/20 09/20/20 09/21/20 23:59 23:59 23:59 Intake Total 2747.5 / 2847.5 1500.00 / 1500.00 2216.67 / 2216.67 Output Total 5480 / 7430 4700 / 4700 5404 / 5404 Balance -2732.5 / -4582.5 -3200.00 / -3200.00 -3187.33 / -3187.33 General: Alert, Oriented x3, Cooperative, No apparent distress, - - NG tube in place HEENT: Atraumatic, PERRLA, EOMI, Normocephalic Oral: Moist Mucosa Neck: Supple Lungs: Clear to auscultation, Normal air movement, No rhonchi, No wheeze, No rales, Diminished Cardiovascular: Regular rate, Regular Rhythm, Normal S1, Normal S2, No murmurs Abdomen: Soft, Non Tender, Non-Distended, No Hepato-splenomegaly Extremities: No edema, Capillary Refill Less than 3 Seconds Skin: No rashes, No breakdown Neurological: Neuro grossly intact, Sensory exam intact to light touch and pain Psych/Mental Status: Normal Affect, Appropriate Microbiology Past 72 Hours 09/15/20 13:10 Blood Culture (Wb) - Anticubital Left Blood Culture - Final No growth in 5 days. 09/15/20 13:00 Blood Culture (Wb) - Anticubital Right Blood Culture - Final No growth in 5 days. Laboratory Results 09/21/20 07:06: Sodium 154 H, Potassium 3.3 L, Chloride 115 H, Carbon Dioxide 34.0 H, Anion Gap 5, BUN 74 H, Creatinine 2.85 H, Estim Creat Clear Calc 21.65, Est GFR (MDRD) Af Amer 28 L, Est GFR (MDRD) Non-Af 23 L, BUN/Creatinine Ratio 26.0 H, Glucose 134 H, Calcium 8.8 Current Medications Acetaminophen (Acetaminophen 325 Mg Tablet) 325 - 650 mg PO Q4H PRN PRN PRN Reason: pain score 1-10/fever/headache Docusate Sodium (Docusate Sodium 100 Mg Capsule) 200 mg PO BID [facility] Last Admin: 09/21/20 12:30 Dose: Not Given Documented by: Enoxaparin Sodium (Enoxaparin 30 Mg/0.3 Ml Syringe) 30 mg SC DAILY [facility] Last Admin: 09/21/20 12:30 Dose: Not Given Documented by: Sodium Chloride () 250 mls @ 15 mls/hr IV .[id number] PRN PRN Reason: Saline Flush Sodium Chloride () 250 mls @ 15 mls/hr IV .[id number] PRN PRN Reason: Additional IVPB Infusion Potassium Chloride 20 meq/ (Dextrose) 1,010 mls @ 125 mls/hr IV .[id number] [facility] Last Infusion: 09/21/20 16:10 Dose: 125 mls/hr Documented by: Multivitamins 10 ml/ Chromium/Copper/Manganese/Seleni/Zn 1 ml/ Folic Acid 1 mg/ Amino Acids/Electrolytes/Dextrose 2,011 mls @ 84 mls/hr IV .[id number] [facility] Stop: 09/22/20 15:48 Metoclopramide HCl (Metoclopramide 10 Mg/2 Ml Vial) 5 mg IV Q6 [facility] Last Admin: 09/21/20 17:58 Dose: 5 mg Documented by: Metoprolol Tartrate (Metoprolol Tartrate 5 Mg/5 Ml Vial) 5 mg IV Q6 [facility] Last Admin: 09/21/20 17:58 Dose: 5 mg Documented by: Ondansetron HCl (Ondansetron 4 Mg/2 Ml Vial) 4 mg IV Q8H PRN PRN Reason: Nausea Last Admin: 09/20/20 09:10 Dose: 4 mg Documented by: Prochlorperazine Edisylate (Prochlorperazine 10 Mg/2 Ml Vial) 5 mg IV Q6H PRN PRN PRN Reason: NAUSEA/VOMITING Last Admin: 09/19/20 03:24 Dose: 5 mg Documented by: Sodium Chloride (0.9% Nacl Peripheral Flush Adult/Peds) 5 - 15 ml IV UD PRN PRN Reason: SALINE FLUSH Last Admin: 09/21/20 17:58 Dose: 10 ml Documented by: STROKE Vital Signs/Narrative: Vital Signs Temp Pulse Resp BP Pulse Ox 09/21/20 17:58 84 141/72 H 09/21/20 17:57 97.4 F L 84 18 141/72 H 92 Medical Necessity - Tobacco Use Smoking Status: Former smoker Assessment/Plan All Active Problems (Last Reviewed 09/14/20 @ 10:[address] Aramis Matthew MD) Bladder tumor (Acute) Bladder cancer (Acute) Incarcerated left inguinal hernia (Acute) Gross hematuria (Acute) Abrasion of right hand, initial encounter (Acute) Contusion of unspecified front wall of thorax, initial encounter (Acute) 1. Invasive bladder cancer status post laparoscopic robotic assisted radical cystoprostatectomy with creation of ileal conduit 09/14/2020/incarcerated left inguinal hernia status post left inguinal hernia repair with mesh 09/14/2020/ileus/MERLE on CKD 4 -He had to have his NG reinserted and had quite a bit of output. A CT scan was obtained and could not rule out an obstruction however because of the volume of gastric output he was can to be taken to the OR today for exploratory laparotomy however while waiting for surgery he did have a lower bowel movement so this was canceled for conservative management. Talking to the night nurse he is can continue to have some bowel movement and is feeling better therefore we will proceed cautiously -Management per primary -Appreciate nephrology recommendations and assistance -Given the duration of him being n.p.o., a PICC line this can be placed tonight and initiate TPN 2. Leukocytosis -Likely reactive. Cultures are negative -We will discontinue antibiotics at this time we will continue to monitor temperature and white blood cell count 3. History of PVCs/NSVT/HTN/HLD -Asymptomatic -Echo in December 2019 demonstrated an EF of 65% with stage II diastolic dysfunction with an RVSP of 35 mmHg -Was following with [facility] cardiology -Transition his metoprolol from p.o. to IV and last night he had a quite a few PVCs however since his transition IV metoprolol this has improved -We will hold his losartan secondary to his MERLE DVT: SCDs Inpatient E&M: 52674 Subs Hosp L2
[2020-09-22] VITALS (15 sets, daily range): BP systolic 123–152; BP diastolic 67–87; PULSE 68–88; RESP 16–18; TEMP 36.6–37; O2SAT 94–98; BMI 34.2
[2020-09-22 06:06] LABS: Bedside Glucose 201 mg/dL (70-110)
[2020-09-22] MEDS: Metoprolol Tartrate 5 MG/5 ML Vial IV ×3 (06:25→18:05)
[2020-09-22] MEDS: Metoclopramide 10 MG/2 ML Vial 5 MG IV ×3 (06:25→18:06)
[2020-09-22 08:08] LABS: Absolute Lymphocyte Count 1.15 X10^3/uL (0.83-4.51); Absolute Neutrophil Count 7.1 X10^3/uL (2.0-7.7); Basophil# 0.01 X10^3/uL; Basophil% 0.1 % (0-1); Eosinophil# 0.07 X10^3/uL; Eosinophils% 0.7 % (0-5); Hematocrit 32.2 % (40-54); Hemoglobin 9.7 g/dL (13.0-16.5); Lymphocyte # 1.15 X10^3/ul (4.0); Lymphocyte % 10.8 % (19-41); Mean Corp Hgb Conc 30.1 g/dL (32-36); Mean Corpuscular Hgb 26.6 pg (27.0-32.0); Mean Corpuscular Volume 88.5 fL (80-94); Mean Platelet Vol. 11.6 fl (6.2-12.0); Monocyte# 2.23 X10^3/uL; Monocyte% 20.9 % (0-10); NRBC Flagged by Analyzer 0 % (0-5); Neutrophil % 66.7 % (47-70); POSITIVE DIFFERENTIAL YES; Platelet Count 238 K/mm3 (150-450); RBC Distribution Width CV 14.9 % (11.6-14.6); RBC Distribution Width SD 48.2 fl (35.1-43.9); Red Blood Count 3.64 M/mm3 (4.6-6.2); White Blood Count 10.7 K/mm3 (4.4-11.0)
[2020-09-22 08:26] LABS: Differential Indicated SCAN CRITERIA MET
[2020-09-22 08:31] LABS: ALB/GLOB Ratio 0.9 RATIO (0.9-2.4); AST(SGOT) 69 U/L (15-37); Alanine Aminotransfer ALT/SGPT 59 U/L (16-61); Albumin, Serum 2.9 g/dL (3.2-5.0); Alkaline Phosphatase 58 U/L (45-117); Anion Gap 4 (5-15); BUN 68 mg/dL (7-18); BUN/Creat Ratio 25.1 RATIO (10-20); Calcium,Total 8.6 mg/dL (8.5-10.1); Chloride 112 mmol/L (98-107); Creatinine, Serum 2.71 mg/dL (0.70-1.30); EST Glomerular Filtration Rate 24 mL/min (>60); Est Glom Filt Rate - Afr Amer 29 mL/min (>60); Estimated Creatinine Clearance 22.77 ml/min; Globulin 3.1 g/dL (2.2-4.2); Glucose 204 mg/dL (74-106); Magnesium 1.9 mg/dL (1.6-2.6); Potassium 3.5 mmol/L (3.5-5.1); Sodium Level 152 mmol/L (136-145)
--- NOTE | 2020-09-22 08:44 | PCM.PN.BLA ---
Progress Note 80-year-old male yesterday we did a small bowel follow-through and after this he had a fairly large bowel movement now he is passing gas and has had some more bowel movements abdomen is soft and benign NG output has slowed down. We will get a get a KUB today to look at the abdomen. We can try NG tube clamping if okay by general surgery to see if he tolerates it. Appears to be that his ileus is resolving and hopefully we can remove the NG tube soon but probably would not be in a bose to feed him given the prolonged ileus. Not sure really what was causing the ileus but he is much better. Labs are pending this morning. We have started him on TPN which is a good idea given the fact he has not had any food for 7 days now and will help with healing. We will continue to monitor appreciate general surgery input and hopefully his ileus will improve and we can remove his NG tube. We will see what the KUB shows today. STROKE Vital Signs/Narrative: Vital Signs Temp Pulse Resp BP Pulse Ox 09/22/20 06:25 75 09/22/20 05:31 98.4 F 75 16 123/86 H 97
--- NOTE | 2020-09-22 09:00 | RAD_ITS ---
STUDY: X-RAY - ABDOMEN/PELVIS REASON FOR EXAM: Male, 80 years old. ILEUS TECHNIQUE: Single AP view of the abdomen / pelvis. COMPARISON: 09/21/2020 FINDINGS: Skin riccardo in midline consistent with recent abdominal surgery. Surgical drain within the right side of the pelvis. Bilateral ureteral stents with distal migration of the left ureteral stent. Nasogastric tube: Left upper quadrant likely in the stomach. Slight decrease in the dilatation of multiple loops of small bowel consistent with a slightly improved partial small bowel obstruction. Previously administered oral contrast is seen within the colon. There is no demonstrated free abdominal air. The visualized liver, spleen and kidneys are grossly normal in size and morphology. Normal soft tissue structures. Normal visualized osseous structures. RAD/Abdomen Single View (Portable) IMPRESSION: Slightly improved partial small bowel obstruction with some oral contrast in the colon. Electronically Signed: Lorenzo Abbasi MD at 9:22 EST Tel , Service support ,
--- NOTE | 2020-09-22 09:10 | PN_ITS ---
Progress Note I saw the patient this morning and he reports he had another bowel movement this morning and his NG output appears clear. I recommend continuing observation with NG suctioning until tomorrow to see what the output does. If the output decreases, the NG may be removed and start diet tomorrow. KUB was ordered this morning appears improved since yesterday and there is contrast in the colon. Jose Manuel Mccord MD Pager: [facility] [address] [place] [address], [address] [place] [phone] Office: STROKE Vital Signs/Narrative: Vital Signs Temp Pulse Resp BP Pulse Ox 09/22/20 06:25 75 09/22/20 05:31 98.4 F 75 16 123/86 H 97
[2020-09-22 09:26] LABS: Differential Comment SCANNED
[2020-09-22] MEDS: Enoxaparin 30 MG/0.3 ML Syringe SC (11:34)
[2020-09-22] MEDS: Docusate Sodium 100 MG Capsule 200 MG PO ×2 (11:35→20:31)
--- NOTE | 2020-09-22 13:44 | PCM.NTREPORT ---
Nutrition Therapy Report - History Nutrition Services has been consulted to:: Manage parenteral nutrition Current diet / nutrition support order:: NPO; TPN- 2L 4.25% AA/10% dextrose to provide 1020, 84 g protein - Anthropometric Measurements Height:: 5 ft 11 in Weight:: 111.584 kg Body Mass Index (BMI):: 34.2 - Relevant Labs Relevant Labs:: WBC 11.1 K/mm3 (4.4-11.0) H 09/19/20 05:15 RBC 3.64 M/mm3 (4.6-6.2) L 09/22/20 07:40 Hgb 9.7 g/dL (13.0-16.5) L 09/22/20 07:40 Hct 32.2 % (40-54) L 09/22/20 07:40 MCH 26.6 pg (27.0-32.0) L 09/22/20 07:40 MCHC 30.1 g/dL (32-36) L 09/22/20 07:40 RDW Std Deviation 48.2 fl (35.1-43.9) H 09/22/20 07:40 RDW Coeff of Jeff 14.9 % (11.6-14.6) H 09/22/20 07:40 Plt Count 104 K/mm3 (150-450) L 09/18/20 06:16 MPV 12.9 fl (6.2-12.0) H 09/19/20 05:15 Lymph % (Auto) 10.8 % (19-41) L 09/22/20 07:40 Josephine % (Auto) 20.9 % (0-10) H 09/22/20 07:40 Sodium 152 mmol/L (136-145) H 09/22/20 07:40 Potassium 3.3 mmol/L (3.5-5.1) L 09/21/20 07:06 Chloride 112 mmol/L (98-107) H 09/22/20 07:40 Carbon Dioxide 36.0 mmol/L (21.0-32.0) H 09/22/20 07:40 Anion Gap 4 (5-15) L 09/22/20 07:40 BUN 68 mg/dL (7-18) H 09/22/20 07:40 Creatinine 2.71 mg/dL (0.70-1.30) H 09/22/20 07:40 Est GFR (MDRD) Af Amer 29 mL/min (>60) L 09/22/20 07:40 Est GFR (MDRD) Non-Af 24 mL/min (>60) L 09/22/20 07:40 BUN/Creatinine Ratio 25.1 RATIO (10-20) H 09/22/20 07:40 Glucose 204 mg/dL (74-106) H 09/22/20 07:40 Calcium 8.3 mg/dL (8.5-10.1) L 09/17/20 05:39 Phosphorus 2.0 mg/dL (2.5-4.9) L 09/22/20 07:40 AST 69 U/L (15-37) H 09/22/20 07:40 Total Protein 6.0 g/dL (6.4-8.2) L 09/22/20 07:40 Albumin 2.9 g/dL (3.2-5.0) L 09/22/20 07:40 - Assessment Food / Nutrition-Related History:: Pt did not have ex. lap yesterday- had BM prior to procedure. NG output clear. Per Dr. Mccord will continue w/ NGT suction and trial clamping/removing NGT tomorrow. TPN started yesterday- 2L 4.25% AA/10% dextrose solution at 84mL/hour to provide 1020 calories, 84 g protein. Daily wts ordered but no new wt available at this time. Has bilat hands non-pitting edema per nursing documentation. Noted hyperglycemia- no insulin ordered, nursing aware and hospitalist notified. - Nutrition Diagnosis Problem / Etiology / Signs & Symptoms (PES):: Inadequate oral intake related to GI dysfunction as evidenced by PO intake meeting less than 50% of estimated nutritional needs x 1 week. - Nutrition Intervention Nutrition Prescription:: Estimated energy needs: 4076-6536 calories, 110-135g protein/day. However, d/t refeeding risk will aim for 10-15 kcal/kg/day (5806-9436 calories). - Food / Nutrient Delivery Interventions Summary of nutrition intervention:: Consulted by provider to renew TPN Nutrition support ordered as / adjusted to:: 2L @84mL/hour 4.25% AA/10% dextrose solution w/ electrolytes/MVI/trace minerals to provide 1020 calories, 200 g dextrose, 84 g AA. Will continue appropriate labs for monitoring of TPN, signs/symptoms of refeeding syndrome. Continue daily wts. Recommend advance diet as tolerated to transitional w/ ensure supplement at meals; continue TPN until adequate intake/tolerance of diet is established and wean TPN as appropriate. - MNT Monitoring Further MNT monitoring and evaluation required?: Yes MNT Follow-up in:: 1-2 days
[2020-09-22 14:01] LABS: Bedside Glucose 172 mg/dL (70-110)
--- NOTE | 2020-09-22 15:32 | PCM.PN.HOSP ---
Patient Problems: Active and Suspected Problems (Last Reviewed 09/14/20 @ 10:[address] Aramis Matthew MD) Bladder cancer (Acute) Incarcerated left inguinal hernia (Acute) Subjective: Feeling better today, states that his abdomen is little bit softer and he is not nauseated. He had another bowel movement overnight. Vitals/I&O's: Vital Signs Temp Pulse Resp BP Pulse Ox 98.6 F 84 16 152/78 H 94 09/22/20 09:36 09/22/20 11:35 09/22/20 09:36 09/22/20 11:35 09/22/20 09:36 Oxygen Flow Rate (L/min) 2 Oxygen Delivery Method Room Air Weight: 246 lb 0.01 oz Body Mass Index (BMI) 34.2 Intake and Output for Last 24 Hours 09/20/20 09/21/20 09/22/20 23:59 23:59 23:59 Intake Total 1500.00 / 1500.00 3154.17 / 3204.17 1310 / 1310 Output Total 4700 / 4700 5404 / 6404 2700 / 2700 Balance -3200.00 / -3200.00 -2249.83 / -3199.83 -1390 / -1390 General: Alert, Oriented x3, Cooperative, No apparent distress, - - NG tube in place HEENT: Atraumatic, PERRLA, EOMI, Normocephalic Oral: Moist Mucosa Neck: Supple Lungs: Clear to auscultation, Normal air movement, No rhonchi, No wheeze, No rales, Diminished Cardiovascular: Regular rate, Regular Rhythm, Normal S1, Normal S2, No murmurs Abdomen: Soft, Non Tender, Non-Distended, No Hepato-splenomegaly Extremities: No edema, Capillary Refill Less than 3 Seconds Skin: No rashes, No breakdown Neurological: Neuro grossly intact, Sensory exam intact to light touch and pain Psych/Mental Status: Normal Affect, Appropriate Microbiology Past 72 Hours 09/15/20 13:10 Blood Culture (Wb) - Anticubital Left Blood Culture - Final No growth in 5 days. 09/15/20 13:00 Blood Culture (Wb) - Anticubital Right Blood Culture - Final No growth in 5 days. Laboratory Results 09/22/20 06:00: POC Glucose 201 H 09/22/20 07:40: WBC 10.7, RBC 3.64 L, Hgb 9.7 L, Hct 32.2 L, MCV 88.5, MCH 26.6 L, MCHC 30.1 L, RDW Std Deviation 48.2 H, RDW Coeff of Jeff 14.9 H, Plt Count 238, MPV 11.6, Immature Gran % (Auto) 0.800, Neut % (Auto) 66.7, Lymph % (Auto) 10.8 L, Cocke % (Auto) 20.9 H, Eos % (Auto) 0.7, Baso % (Auto) 0.1, Absolute Neuts (auto) 7.1, Absolute Lymphs (auto) 1.15, Nucleated RBC % 0, Differential Comment SCANNED 09/22/20 07:40: Sodium 152 H, Potassium 3.5, Chloride 112 H, Carbon Dioxide 36.0 H, Anion Gap 4 L, BUN 68 H, Creatinine 2.71 H, Estim Creat Clear Calc 22.77, Est GFR (MDRD) Af Amer 29 L, Est GFR (MDRD) Non-Af 24 L, BUN/Creatinine Ratio 25.1 H, Glucose 204 H, Calcium 8.6, Phosphorus 2.0 L, Magnesium 1.9, Total Bilirubin 1.00, AST 69 H, ALT 59, Alkaline Phosphatase 58, Total Protein 6.0 L, Albumin 2.9 L, Globulin 3.1, Albumin/Globulin Ratio 0.9 09/22/20 13:56: POC Glucose 172 H Current Medications Acetaminophen (Acetaminophen 325 Mg Tablet) 325 - 650 mg PO Q4H PRN PRN PRN Reason: pain score 1-10/fever/headache Docusate Sodium (Docusate Sodium 100 Mg Capsule) 200 mg PO BID [facility] Last Admin: 09/22/20 11:35 Dose: 200 mg Documented by: Enoxaparin Sodium (Enoxaparin 30 Mg/0.3 Ml Syringe) 30 mg SC DAILY [facility] Last Admin: 09/22/20 11:34 Dose: 30 mg Documented by: Sodium Chloride () 250 mls @ 15 mls/hr IV .[id number] PRN PRN Reason: Saline Flush Sodium Chloride () 250 mls @ 15 mls/hr IV .[id number] PRN PRN Reason: Additional IVPB Infusion Potassium Chloride 20 meq/ (Dextrose) 1,010 mls @ 125 mls/hr IV .[id number] [facility] Last Admin: 09/22/20 09:22 Dose: 125 mls/hr Documented by: Multivitamins 10 ml/ Chromium/Copper/Manganese/Seleni/Zn 1 ml/ Folic Acid 1 mg/ Amino Acids/Electrolytes/Dextrose 2,011 mls @ 84 mls/hr IV .[id number] [facility] Stop: 09/22/20 15:48 Last Admin: 09/21/20 23:14 Dose: 84 mls/hr Documented by: Multivitamins 10 ml/ Chromium/Copper/Manganese/Seleni/Zn 1 ml/ Folic Acid 1 mg/ Amino Acids/Electrolytes/Dextrose 2,011 mls @ 84 mls/hr IV .[id number] [facility] Stop: 09/23/20 15:48 Insulin Human Lispro (Insulin Lispro 100 Unit/Ml Insuln.Pen) 0 unit SC Q6 [facility]; Protocol Metoclopramide HCl (Metoclopramide 10 Mg/2 Ml Vial) 5 mg IV Q6 [facility] Last Admin: 09/22/20 11:34 Dose: 5 mg Documented by: Metoprolol Tartrate (Metoprolol Tartrate 5 Mg/5 Ml Vial) 5 mg IV Q6 [facility] Last Admin: 09/22/20 11:35 Dose: 5 mg Documented by: Ondansetron HCl (Ondansetron 4 Mg/2 Ml Vial) 4 mg IV Q8H PRN PRN Reason: Nausea Last Admin: 09/20/20 09:10 Dose: 4 mg Documented by: Prochlorperazine Edisylate (Prochlorperazine 10 Mg/2 Ml Vial) 5 mg IV Q6H PRN PRN PRN Reason: NAUSEA/VOMITING Last Admin: 09/19/20 03:24 Dose: 5 mg Documented by: Sodium Chloride (0.9% Nacl Peripheral Flush Adult/Peds) 5 - 15 ml IV UD PRN PRN Reason: SALINE FLUSH Last Admin: 09/21/20 17:58 Dose: 10 ml Documented by: STROKE Vital Signs/Narrative: Vital Signs Pulse BP 09/22/20 11:35 84 152/78 H Medical Necessity - Tobacco Use Smoking Status: Former smoker Assessment/Plan All Active Problems (Last Reviewed 09/14/20 @ 10:[address] Aramis Matthew MD) Bladder tumor (Acute) Bladder cancer (Acute) Incarcerated left inguinal hernia (Acute) Gross hematuria (Acute) Abrasion of right hand, initial encounter (Acute) Contusion of unspecified front wall of thorax, initial encounter (Acute) 1. Invasive bladder cancer status post laparoscopic robotic assisted radical cystoprostatectomy with creation of ileal conduit 09/14/2020/incarcerated left inguinal hernia status post left inguinal hernia repair with mesh 09/14/2020/ileus/MERLE on CKD 4 -He had to have his NG reinserted and had quite a bit of output. A CT scan was obtained and could not rule out an obstruction however because of the volume of gastric output he was can to be taken to the OR today for exploratory laparotomy however while waiting for surgery he did have a lower bowel movement so this was canceled for conservative management. He did have another bowel movement today therefore we will continue with conservative management -Management per primary and general surgery -Continue with D5W for his hypernatremia -Appreciate nephrology recommendations and assistance -Given the duration of him being n.p.o., continue with TPN via his PICC line 2. Leukocytosis -Likely reactive. Cultures are negative -We will discontinue antibiotics at this time we will continue to monitor temperature and white blood cell count 3. History of PVCs/NSVT/HTN/HLD -Asymptomatic -Echo in December 2019 demonstrated an EF of 65% with stage II diastolic dysfunction with an RVSP of 35 mmHg -Was following with [facility] cardiology -Transition his metoprolol from p.o. to IV and last night he had a quite a few PVCs however since his transition IV metoprolol this has improved -We will hold his losartan secondary to his MERLE DVT: SCDs Inpatient E&M: [id number] Subs Hosp L2
--- NOTE | 2020-09-22 17:28 | PCM.PN.REN ---
Patient Problems: Active and Suspected Problems (Last Reviewed 09/14/20 @ 10:[address] Aramis Matthew MD) Bladder cancer (Acute) Incarcerated left inguinal hernia (Acute) Subjective: Doing better and having BM. abdominal pain better - Physical Exam Vitals/I&O's: Vital Signs Temp Pulse Resp BP Pulse Ox 98.6 F 73 16 152/78 H 94 09/22/20 09:36 09/22/20 14:00 09/22/20 09:36 09/22/20 11:35 09/22/20 09:36 Oxygen Flow Rate (L/min) 2 Oxygen Delivery Method Room Air Weight: 111.584 kg Body Mass Index (BMI) 34.2 Intake and Output for Last 24 Hours 09/20/20 09/21/20 09/22/20 23:59 23:59 23:59 Intake Total 1500.00 / 1500.00 3154.17 / 3204.17 1310 / 1310 Output Total 4700 / 4700 5404 / 6404 2700 / 2700 Balance -3200.00 / -3200.00 -2249.83 / -3199.83 -1390 / -1390 General: Alert, Oriented x3 HEENT: Atraumatic Oral: Moist Mucosa Neck: Supple, No JVD Lungs: Clear to auscultation, Normal air movement Cardiovascular: Regular rate, Regular Rhythm Abdomen: Bowel Sounds Present, Soft, Non Tender Extremities: No clubbing, No cyanosis, No edema Skin: No rashes Musculoskeletal: No Tenderness to Palpation of Joints or Extremities Lymphatic: No Cervical, Supraclavicular, or Inguinal Adenopathy Neurological: Cranial nerves II-XII grossly intact, Neuro grossly intact Psych/Mental Status: Appropriate Microbiology Past 72 Hours 09/15/20 13:10 Blood Culture (Wb) - Anticubital Left Blood Culture - Final No growth in 5 days. 09/15/20 13:00 Blood Culture (Wb) - Anticubital Right Blood Culture - Final No growth in 5 days. Laboratory Results 09/22/20 06:00: POC Glucose 201 H 09/22/20 07:40: WBC 10.7, RBC 3.64 L, Hgb 9.7 L, Hct 32.2 L, MCV 88.5, MCH 26.6 L, MCHC 30.1 L, RDW Std Deviation 48.2 H, RDW Coeff of Jeff 14.9 H, Plt Count 238, MPV 11.6, Immature Gran % (Auto) 0.800, Neut % (Auto) 66.7, Lymph % (Auto) 10.8 L, [place] % (Auto) 20.9 H, Eos % (Auto) 0.7, Baso % (Auto) 0.1, Absolute Neuts (auto) 7.1, Absolute Lymphs (auto) 1.15, Nucleated RBC % 0, Differential Comment SCANNED 09/22/20 07:40: Sodium 152 H, Potassium 3.5, Chloride 112 H, Carbon Dioxide 36.0 H, Anion Gap 4 L, BUN 68 H, Creatinine 2.71 H, Estim Creat Clear Calc 22.77, Est GFR (MDRD) Af Amer 29 L, Est GFR (MDRD) Non-Af 24 L, BUN/Creatinine Ratio 25.1 H, Glucose 204 H, Calcium 8.6, Phosphorus 2.0 L, Magnesium 1.9, Total Bilirubin 1.00, AST 69 H, ALT 59, Alkaline Phosphatase 58, Total Protein 6.0 L, Albumin 2.9 L, Globulin 3.1, Albumin/Globulin Ratio 0.9 09/22/20 13:56: POC Glucose 172 H Current Medications Acetaminophen (Acetaminophen 325 Mg Tablet) 325 - 650 mg PO Q4H PRN PRN PRN Reason: pain score 1-10/fever/headache Docusate Sodium (Docusate Sodium 100 Mg Capsule) 200 mg PO BID [facility] Last Admin: 09/22/20 11:35 Dose: 200 mg Documented by: Enoxaparin Sodium (Enoxaparin 30 Mg/0.3 Ml Syringe) 30 mg SC DAILY [facility] Last Admin: 09/22/20 11:34 Dose: 30 mg Documented by: Sodium Chloride () 250 mls @ 15 mls/hr IV .[id number] PRN PRN Reason: Saline Flush Sodium Chloride () 250 mls @ 15 mls/hr IV .[id number] PRN PRN Reason: Additional IVPB Infusion Potassium Chloride 20 meq/ (Dextrose) 1,010 mls @ 125 mls/hr IV .Q8H5M [facility] Last Admin: 09/22/20 09:22 Dose: 125 mls/hr Documented by: Multivitamins 10 ml/ Chromium/Copper/Manganese/Seleni/Zn 1 ml/ Folic Acid 1 mg/ Amino Acids/Electrolytes/Dextrose 2,011 mls @ 84 mls/hr IV .[id number] [facility] Stop: 09/23/20 15:48 Insulin Human Lispro (Insulin Lispro 100 Unit/Ml Insuln.Pen) 0 unit SC Q6 [facility]; Protocol Metoclopramide HCl (Metoclopramide 10 Mg/2 Ml Vial) 5 mg IV Q6 [facility] Last Admin: 09/22/20 11:34 Dose: 5 mg Documented by: Metoprolol Tartrate (Metoprolol Tartrate 5 Mg/5 Ml Vial) 5 mg IV Q6 [facility] Last Admin: 09/22/20 11:35 Dose: 5 mg Documented by: Ondansetron HCl (Ondansetron 4 Mg/2 Ml Vial) 4 mg IV Q8H PRN PRN Reason: Nausea Last Admin: 09/20/20 09:10 Dose: 4 mg Documented by: Prochlorperazine Edisylate (Prochlorperazine 10 Mg/2 Ml Vial) 5 mg IV Q6H PRN PRN PRN Reason: NAUSEA/VOMITING Last Admin: 09/19/20 03:24 Dose: 5 mg Documented by: Sodium Chloride (0.9% Nacl Peripheral Flush Adult/Peds) 5 - 15 ml IV UD PRN PRN Reason: SALINE FLUSH Last Admin: 09/21/20 17:58 Dose: 10 ml Documented by: Medical Necessity - Tobacco Use Smoking Status: Former smoker Assessment/Plan All Active Problems (Last Reviewed 09/14/20 @ 10:[address] Aramis Matthew MD) Bladder tumor (Acute) Bladder cancer (Acute) Incarcerated left inguinal hernia (Acute) Gross hematuria (Acute) Abrasion of right hand, initial encounter (Acute) Contusion of unspecified front wall of thorax, initial encounter (Acute) 1- MERLE on CKD stage 4 with baseline Cr 1.8-2.4 MERLE is likely prerenal. 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 improving continue D5W 3- Bladder CA aparoscopic robotic assisted radical cystoprostatectomy with creation of ileal conduit 09/14/2020 complicated by ileus. NGT in place. having BM management as per surgery team Will continue to follow. Please call if any question Marian Bhatia MD
[2020-09-22] MEDS: Insulin Lispro 100 UNIT/ML INSULN.PEN SC (18:04)
[2020-09-22] MEDS: 0.9% NaCl Peripheral Flush Adult/Peds IV (18:06)
[2020-09-22 18:21] LABS: Bedside Glucose 169 mg/dL (70-110)
[2020-09-23] VITALS (16 sets, daily range): BP systolic 122–150; BP diastolic 62–89; PULSE 65–187; RESP 18; TEMP 36.6–37.2; O2SAT 97–100; BMI 33.5
[2020-09-23] MEDS: Metoclopramide 10 MG/2 ML Vial 5 MG IV ×2 (00:20→06:19)
[2020-09-23] MEDS: Metoprolol Tartrate 5 MG/5 ML Vial IV ×5 (00:21→23:29)
[2020-09-23] MEDS: Insulin Lispro 100 UNIT/ML INSULN.PEN SC ×4 (00:22→23:33)
[2020-09-23] MEDS: 0.9% NaCl Peripheral Flush Adult/Peds IV ×2 (00:22→23:30)
[2020-09-23 00:36] LABS: Bedside Glucose 150 mg/dL (70-110)
[2020-09-23 06:51] LABS: Bedside Glucose 174 mg/dL (70-110)
[2020-09-23 06:55] LABS: Absolute Lymphocyte Count 1.57 X10^3/uL (0.83-4.51); Absolute Neutrophil Count 8.3 X10^3/uL (2.0-7.7); Basophil# 0.01 X10^3/uL; Basophil% 0.1 % (0-1); Eosinophil# 0.13 X10^3/uL; Hematocrit 29.8 % (40-54); Lymphocyte # 1.57 X10^3/ul (4.0); Mean Corp Hgb Conc 30.2 g/dL (32-36); Mean Corpuscular Hgb 26.9 pg (27.0-32.0); Mean Corpuscular Volume 89.2 fL (80-94); Monocyte# 2.95 X10^3/uL; Monocyte% 22.5 % (0-10); NRBC Flagged by Analyzer 0 % (0-5); Neutrophil # 8.26 X10^3/uL (2.7-7.7); Neutrophil % 62.9 % (47-70); POSITIVE DIFFERENTIAL YES; Platelet Count 188 K/mm3 (150-450); RBC Distribution Width CV 14.8 % (11.6-14.6); RBC Distribution Width SD 47.6 fl (35.1-43.9); Red Blood Count 3.34 M/mm3 (4.6-6.2); White Blood Count 13.1 K/mm3 (4.4-11.0)
[2020-09-23 07:18] LABS: Differential Indicated SCAN CRITERIA MET
[2020-09-23 07:19] LABS: Differential Comment SCANNED
[2020-09-23 07:21] LABS: ALB/GLOB Ratio 0.8 RATIO (0.9-2.4); AST(SGOT) 94 U/L (15-37); Alanine Aminotransfer ALT/SGPT 95 U/L (16-61); Albumin, Serum 2.6 g/dL (3.2-5.0); Alkaline Phosphatase 55 U/L (45-117); Anion Gap 5 (5-15); BUN 64 mg/dL (7-18); BUN/Creat Ratio 26.1 RATIO (10-20); Calcium,Total 8.3 mg/dL (8.5-10.1); Chloride 107 mmol/L (98-107); Creatinine, Serum 2.45 mg/dL (0.70-1.30); EST Glomerular Filtration Rate 27 mL/min (>60); Est Glom Filt Rate - Afr Amer 33 mL/min (>60); Estimated Creatinine Clearance 25.19 ml/min; Globulin 3.4 g/dL (2.2-4.2); Glucose 167 mg/dL (74-106); Magnesium 1.8 mg/dL (1.6-2.6); Phosphorus 2.4 mg/dL (2.5-4.9); Potassium 3.2 mmol/L (3.5-5.1); Sodium Level 147 mmol/L (136-145)
--- NOTE | 2020-09-23 07:59 | PN.SURG_ITS ---
Patient Problems: Active and Suspected Problems (Last Reviewed 09/14/20 @ 10:[address] Aramis Matthew MD) Bladder cancer (Acute) Incarcerated left inguinal hernia (Acute) Subjective: Patient reports no abdominal pain. He did have a bowel movement this morning which is liquid and he is passing flatus. - Physical Exam Vitals/I&O's: Vital Signs Temp Pulse Resp BP Pulse Ox 97.8 F 67 18 150/89 H 98 09/23/20 06:20 09/23/20 06:20 09/23/20 06:20 09/23/20 06:20 09/23/20 06:20 Oxygen Flow Rate (L/min) 2 Oxygen Delivery Method Room Air Weight: 246 lb 0.01 oz Body Mass Index (BMI) 34.2 Intake and Output for Last 24 Hours 09/21/20 09/22/20 09/23/20 23:59 23:59 23:59 Intake Total 3154.17 / 3204.17 4338.2 / 4538.2 1439.58 / 1439.58 Output Total 5404 / 6404 3500 / 4150 1625 / 1625 Balance -2249.83 / -3199.83 838.2 / 388.2 -185.42 / -185.42 General: Alert, Oriented x3 Lungs: Normal air movement Abdomen: Soft, Non Tender, Non-Distended Microbiology Past 72 Hours 09/15/20 13:10 Blood Culture (Wb) - Anticubital Left Blood Culture - Final No growth in 5 days. 09/15/20 13:00 Blood Culture (Wb) - Anticubital Right Blood Culture - Final No growth in 5 days. Laboratory Results 09/22/20 07:40: WBC 10.7, RBC 3.64 L, Hgb 9.7 L, Hct 32.2 L, MCV 88.5, MCH 26.6 L, MCHC 30.1 L, RDW Std Deviation 48.2 H, RDW Coeff of Jeff 14.9 H, Plt Count 238, MPV 11.6, Immature Gran % (Auto) 0.800, Neut % (Auto) 66.7, Lymph % (Auto) 10.8 L, [place] % (Auto) 20.9 H, Eos % (Auto) 0.7, Baso % (Auto) 0.1, Absolute Neuts (auto) 7.1, Absolute Lymphs (auto) 1.15, Nucleated RBC % 0, Differential Comment SCANNED 09/22/20 07:40: Sodium 152 H, Potassium 3.5, Chloride 112 H, Carbon Dioxide 36.0 H, Anion Gap 4 L, BUN 68 H, Creatinine 2.71 H, Estim Creat Clear Calc 22.77, Est GFR (MDRD) Af Amer 29 L, Est GFR (MDRD) Non-Af 24 L, BUN/Creatinine Ratio 25.1 H , Glucose 204 H, Calcium 8.6, Phosphorus 2.0 L, Magnesium 1.9, Total Bilirubin 1.00, AST 69 H, ALT 59, Alkaline Phosphatase 58, Total Protein 6.0 L, Albumin 2.9 L, Globulin 3.1, Albumin/Globulin Ratio 0.9 09/22/20 13:56: POC Glucose 172 H 09/22/20 18:04: POC Glucose 169 H 09/23/20 00:19: POC Glucose 150 H 09/23/20 06:14: POC Glucose 174 H 09/23/20 06:30: WBC 13.1 H, RBC 3.34 L, Hgb 9.0 L, Hct 29.8 L, MCV 89.2, MCH 26.9 L, MCHC 30.2 L, RDW Std Deviation 47.6 H, RDW Coeff of Jeff 14.8 H, Plt Count 188, MPV 12.0, Immature Gran % (Auto) 1.500 H, Neut % (Auto) 62.9, Lymph % (Auto) 12.0 L, [place] % (Auto) 22.5 H, Eos % (Auto) 1.0, Baso % (Auto) 0.1, Absolute Neuts (auto) 8.3 H, Absolute Lymphs (auto) 1.57, Nucleated RBC % 0, Differential Comment SCANNED, Diff Path Review February09/23/20 06:30: Sodium 147 H, Potassium 3.2 L, Chloride 107, Carbon Dioxide 35.0 H, Anion Gap 5, BUN 64 H, Creatinine 2.45 H, Estim Creat Clear Calc 25.19, Est GFR (MDRD) Af Amer 33 L, Est GFR (MDRD) Non-Af 27 L, BUN/Creatinine Ratio 26.1 H , Glucose 167 H, Calcium 8.3 L, Phosphorus 2.4 L, Magnesium 1.8, Total Bilirubin 1.10 H, AST 94 H, ALT 95 H, Alkaline Phosphatase 55, Total Protein 6.0 L, Albumin 2.6 L, Globulin 3.4, Albumin/Globulin Ratio 0.8 L Current Medications Acetaminophen (Acetaminophen 325 Mg Tablet) 325 - 650 mg PO Q4H PRN PRN PRN Reason: pain score 1-10/fever/headache Docusate Sodium (Docusate Sodium 100 Mg Capsule) 200 mg PO BID [facility] Last Admin: 09/22/20 20:31 Dose: 200 mg Documented by: Enoxaparin Sodium (Enoxaparin 30 Mg/0.3 Ml Syringe) 30 mg SC DAILY [facility] Last Admin: 09/22/20 11:34 Dose: 30 mg Documented by: Sodium Chloride () 250 mls @ 15 mls/hr IV .[id number] PRN PRN Reason: Saline Flush Sodium Chloride () 250 mls @ 15 mls/hr IV .[id number] PRN PRN Reason: Additional IVPB Infusion Potassium Chloride 20 meq/ (Dextrose) 1,010 mls @ 125 mls/hr IV .Q8H5M [facility] Last Admin: 09/23/20 02:11 Dose: 125 mls/hr Documented by: Multivitamins 10 ml/ Chromium/Copper/Manganese/Seleni/Zn 1 ml/ Folic Acid 1 mg/ Amino Acids/Electrolytes/Dextrose 2,011 mls @ 84 mls/hr IV .[id number] [facility] Stop: 09/23/20 15:48 Last Admin: 09/22/20 20:17 Dose: 84 mls/hr Documented by: Pantoprazole Sodium 40 mg/ (Sodium Chloride) 110 mls @ 330 mls/hr IV Q24 [facility] Insulin Human Lispro (Insulin Lispro 100 Unit/Ml Insuln.Pen) 0 unit SC Q6 [facility]; Protocol Last Admin: 09/23/20 06:18 Dose: 1 u Documented by: Metoclopramide HCl (Metoclopramide 10 Mg/2 Ml Vial) 5 mg IV Q6 [facility] Last Admin: 09/23/20 06:19 Dose: 5 mg Documented by: Metoprolol Tartrate (Metoprolol Tartrate 5 Mg/5 Ml Vial) 5 mg IV Q6 [facility] Last Admin: 09/23/20 06:19 Dose: 5 mg Documented by: Ondansetron HCl (Ondansetron 4 Mg/2 Ml Vial) 4 mg IV Q8H PRN PRN Reason: Nausea Last Admin: 09/20/20 09:10 Dose: 4 mg Documented by: Prochlorperazine Edisylate (Prochlorperazine 10 Mg/2 Ml Vial) 5 mg IV Q6H PRN PRN PRN Reason: NAUSEA/VOMITING Last Admin: 09/19/20 03:24 Dose: 5 mg Documented by: Sodium Chloride (0.9% Nacl Peripheral Flush Adult/Peds) 5 - 15 ml IV UD PRN PRN Reason: SALINE FLUSH Last Admin: 09/23/20 00:22 Dose: 10 ml Documented by: Medical Necessity - Tobacco Use Smoking Status: Former smoker Assessment/Plan All Active Problems (Last Reviewed 09/14/20 @ 10:[address] Aramis Matthew MD) Bladder tumor (Acute) Bladder cancer (Acute) Incarcerated left inguinal hernia (Acute) Gross hematuria (Acute) Abrasion of right hand, initial encounter (Acute) Contusion of unspecified front wall of thorax, initial encounter (Acute) 80-year-old male with postoperative ileus 1. The patient had another bowel movement reports he is passing flatus. His abdomen is soft and nontender. He is not having any nausea. His NG output is clear but it was over 600 mL for 12 hours. I will order a clamping trial as the patient is now an NG removed at this time if it might have to go back in. If the clamping trial is successful I remove the NG and start clear liquids. The patient's KUB yesterday showed contrast making it through the entire colon and the small bowel distention was improved. No plan for surgery today. Jose Manuel Mccord MD Pager: [facility] [address] [place] [address], [address] [place] [address] Office:
[2020-09-23] MEDS: Enoxaparin 30 MG/0.3 ML Syringe SC (10:38)
[2020-09-23] MEDS: Docusate Sodium 100 MG Capsule 200 MG PO ×2 (10:38→20:43)
--- NOTE | 2020-09-23 11:08 | PCM.PN.HOSP ---
Patient Problems: Active and Suspected Problems (Last Reviewed 09/14/20 @ 10:[address] Aramis Matthew MD) Bladder cancer (Acute) Incarcerated left inguinal hernia (Acute) Subjective: Feels better today, he was ambulatory yesterday around the unit with nursing staff. He had another couple of bowel movements overnight therefore his NG tube was clamped this morning by surgery. Vitals/I&O's: Vital Signs Temp Pulse Resp BP Pulse Ox 98.9 F 77 18 140/62 H 98 09/23/20 08:38 09/23/20 08:38 09/23/20 08:38 09/23/20 08:38 09/23/20 08:38 Oxygen Flow Rate (L/min) 2 Oxygen Delivery Method Room Air Weight: 246 lb 0.01 oz Body Mass Index (BMI) 34.2 Intake and Output for Last 24 Hours 09/21/20 09/22/20 09/23/20 23:59 23:59 23:59 Intake Total 3154.17 / 3204.17 4338.2 / 4538.2 2499.58 / 2499.58 Output Total 5404 / 6404 3500 / 4150 1625 / 1625 Balance -2249.83 / -3199.83 838.2 / 388.2 874.58 / 874.58 General: Alert, Oriented x3, Cooperative, No apparent distress, - - NG tube in place, clamped HEENT: Atraumatic, PERRLA, EOMI, Normocephalic Oral: Moist Mucosa Neck: Supple Lungs: Clear to auscultation, Normal air movement, No rhonchi, No wheeze, No rales, Diminished Cardiovascular: Regular rate, Regular Rhythm, Normal S1, Normal S2, No murmurs Abdomen: Soft, Non Tender, Non-Distended, No Hepato-splenomegaly Extremities: No edema, Capillary Refill Less than 3 Seconds Skin: No rashes, No breakdown Neurological: Neuro grossly intact, Sensory exam intact to light touch and pain Psych/Mental Status: Normal Affect, Appropriate Microbiology Past 72 Hours 09/15/20 13:10 Blood Culture (Wb) - Anticubital Left Blood Culture - Final No growth in 5 days. 09/15/20 13:00 Blood Culture (Wb) - Anticubital Right Blood Culture - Final No growth in 5 days. Laboratory Results 09/22/20 13:56: POC Glucose 172 H 09/22/20 18:04: POC Glucose 169 H 09/23/20 00:19: POC Glucose 150 H 09/23/20 06:14: POC Glucose 174 H 09/23/20 06:30: WBC 13.1 H, RBC 3.34 L, Hgb 9.0 L, Hct 29.8 L, MCV 89.2, MCH 26.9 L, MCHC 30.2 L, RDW Std Deviation 47.6 H, RDW Coeff of Jeff 14.8 H, Plt Count 188, MPV 12.0, Immature Gran % (Auto) 1.500 H, Neut % (Auto) 62.9, Lymph % (Auto) 12.0 L, [place] % (Auto) 22.5 H, Eos % (Auto) 1.0, Baso % (Auto) 0.1, Absolute Neuts (auto) 8.3 H, Absolute Lymphs (auto) 1.57, Nucleated RBC % 0, Differential Comment SCANNED, Diff Path Review February09/23/20 06:30: Sodium 147 H, Potassium 3.2 L, Chloride 107, Carbon Dioxide 35.0 H, Anion Gap 5, BUN 64 H, Creatinine 2.45 H, Estim Creat Clear Calc 25.19, Est GFR (MDRD) Af Amer 33 L, Est GFR (MDRD) Non-Af 27 L, BUN/Creatinine Ratio 26.1 H, Glucose 167 H, Calcium 8.3 L, Phosphorus 2.4 L, Magnesium 1.8, Total Bilirubin 1.10 H, AST 94 H, ALT 95 H, Alkaline Phosphatase 55, Total Protein 6.0 L, Albumin 2.6 L, Globulin 3.4, Albumin/Globulin Ratio 0.8 L Current Medications Acetaminophen (Acetaminophen 325 Mg Tablet) 325 - 650 mg PO Q4H PRN PRN PRN Reason: pain score 1-10/fever/headache Docusate Sodium (Docusate Sodium 100 Mg Capsule) 200 mg PO BID [facility] Last Admin: 09/23/20 10:38 Dose: 200 mg Documented by: Enoxaparin Sodium (Enoxaparin 30 Mg/0.3 Ml Syringe) 30 mg SC DAILY [facility] Last Admin: 09/23/20 10:38 Dose: 30 mg Documented by: Sodium Chloride () 250 mls @ 15 mls/hr IV .[id number] PRN PRN Reason: Saline Flush Sodium Chloride () 250 mls @ 15 mls/hr IV .[id number] PRN PRN Reason: Additional IVPB Infusion Potassium Chloride 20 meq/ (Dextrose) 1,010 mls @ 125 mls/hr IV .Q8H5M [facility] Last Admin: 09/23/20 10:37 Dose: 125 mls/hr Documented by: Multivitamins 10 ml/ Chromium/Copper/Manganese/Seleni/Zn 1 ml/ Folic Acid 1 mg/ Amino Acids/Electrolytes/Dextrose 2,011 mls @ 84 mls/hr IV .[id number] [facility] Stop: 09/23/20 15:48 Last Admin: 09/22/20 20:17 Dose: 84 mls/hr Documented by: Pantoprazole Sodium 40 mg/ (Sodium Chloride) 110 mls @ 330 mls/hr IV Q24 [facility] Last Admin: 09/23/20 10:37 Dose: 330 mls/hr Documented by: Insulin Human Lispro (Insulin Lispro 100 Unit/Ml Insuln.Pen) 0 unit SC Q6 [facility]; Protocol Last Admin: 09/23/20 06:18 Dose: 1 u Documented by: Metoprolol Tartrate (Metoprolol Tartrate 5 Mg/5 Ml Vial) 5 mg IV Q6 [facility] Last Admin: 09/23/20 06:19 Dose: 5 mg Documented by: Ondansetron HCl (Ondansetron 4 Mg/2 Ml Vial) 4 mg IV Q8H PRN PRN Reason: Nausea Last Admin: 09/20/20 09:10 Dose: 4 mg Documented by: Prochlorperazine Edisylate (Prochlorperazine 10 Mg/2 Ml Vial) 5 mg IV Q6H PRN PRN PRN Reason: NAUSEA/VOMITING Last Admin: 09/19/20 03:24 Dose: 5 mg Documented by: Sodium Chloride (0.9% Nacl Peripheral Flush Adult/Peds) 5 - 15 ml IV UD PRN PRN Reason: SALINE FLUSH Last Admin: 09/23/20 00:22 Dose: 10 ml Documented by: STROKE Vital Signs/Narrative: Vital Signs Temp Pulse Resp BP Pulse Ox 09/23/20 08:38 98.9 F 77 18 140/62 H 98 Medical Necessity - Tobacco Use Smoking Status: Former smoker Assessment/Plan All Active Problems (Last Reviewed 09/14/20 @ 10:[address] Aramis Matthew MD) Bladder tumor (Acute) Bladder cancer (Acute) Incarcerated left inguinal hernia (Acute) Gross hematuria (Acute) Abrasion of right hand, initial encounter (Acute) Contusion of unspecified front wall of thorax, initial encounter (Acute) 1. Invasive bladder cancer status post laparoscopic robotic assisted radical cystoprostatectomy with creation of ileal conduit 09/14/2020/incarcerated left inguinal hernia status post left inguinal hernia repair with mesh 09/14/2020/ileus/MERLE on CKD 4 -He had to have his NG reinserted and had quite a bit of output. A CT scan was obtained and could not rule out an obstruction however because of the volume of gastric output he was can to be taken to the OR today for exploratory laparotomy however while waiting for surgery he did have a lower bowel movement so this was canceled for conservative management. He did have another bowel movement today therefore we will continue with conservative management -Management per primary and general surgery -Continue with D5W for his hypernatremia -Appreciate nephrology recommendations and assistance -Given the duration of him being n.p.o., continue with TPN via his PICC line 2. Leukocytosis -Likely reactive. Cultures are negative -We will discontinue antibiotics at this time we will continue to monitor temperature and white blood cell count 3. History of PVCs/NSVT/HTN/HLD -Asymptomatic -Echo in December 2019 demonstrated an EF of 65% with stage II diastolic dysfunction with an RVSP of 35 mmHg -Was following with [facility] cardiology -Transition his metoprolol from p.o. to IV and last night he had a quite a few PVCs however since his transition IV metoprolol this has improved -We will hold his losartan secondary to his MERLE DVT: SCDs Inpatient E&M: [id number] Subs Hosp L2
[2020-09-23 12:20] LABS: Bedside Glucose 162 mg/dL (70-110)
--- NOTE | 2020-09-23 13:17 | PCM.NTREPORT ---
Nutrition Therapy Report - History Nutrition Services has been consulted to:: Manage parenteral nutrition Current diet / nutrition support order:: NPO; 2L 4.25% AA/10% dextrose at 84mL/hour to provide 1020 calories, 84 g protein - Anthropometric Measurements Height:: 5 ft 11 in Weight:: 109.18 kg Body Mass Index (BMI):: 33.5 - Relevant Labs Relevant Labs:: WBC 13.1 K/mm3 (4.4-11.0) H 09/23/20 06:30 RBC 3.34 M/mm3 (4.6-6.2) L 09/23/20 06:30 Hgb 9.0 g/dL (13.0-16.5) L 09/23/20 06:30 Hct 29.8 % (40-54) L 09/23/20 06:30 MCH 26.9 pg (27.0-32.0) L 09/23/20 06:30 MCHC 30.2 g/dL (32-36) L 09/23/20 06:30 RDW Std Deviation 47.6 fl (35.1-43.9) H 09/23/20 06:30 RDW Coeff of Jeff 14.8 % (11.6-14.6) H 09/23/20 06:30 Plt Count 104 K/mm3 (150-450) L 09/18/20 06:16 MPV 12.9 fl (6.2-12.0) H 09/19/20 05:15 Immature Gran % (Auto) 1.500 % (0.0-0.9) H 09/23/20 06:30 Lymph % (Auto) 12.0 % (19-41) L 09/23/20 06:30 [place] % (Auto) 22.5 % (0-10) H 09/23/20 06:30 Absolute Neuts (auto) 8.3 X10^3/uL (2.0-7.7) H 09/23/20 06:30 Sodium 147 mmol/L (136-145) H 09/23/20 06:30 Potassium 3.2 mmol/L (3.5-5.1) L 09/23/20 06:30 Chloride 112 mmol/L (98-107) H 09/22/20 07:40 Carbon Dioxide 35.0 mmol/L (21.0-32.0) H 09/23/20 06:30 Anion Gap 4 (5-15) L 09/22/20 07:40 BUN 64 mg/dL (7-18) H 09/23/20 06:30 Creatinine 2.45 mg/dL (0.70-1.30) H 09/23/20 06:30 Est GFR (MDRD) Af Amer 33 mL/min (>60) L 09/23/20 06:30 Est GFR (MDRD) Non-Af 27 mL/min (>60) L 09/23/20 06:30 BUN/Creatinine Ratio 26.1 RATIO (10-20) H 09/23/20 06:30 Glucose 167 mg/dL (74-106) H 09/23/20 06:30 Calcium 8.3 mg/dL (8.5-10.1) L 09/23/20 06:30 Phosphorus 2.4 mg/dL (2.5-4.9) L 09/23/20 06:30 Total Bilirubin 1.10 mg/dL (0.20-1.00) H 09/23/20 06:30 AST 94 U/L (15-37) H 09/23/20 06:30 ALT 95 U/L (16-61) H 09/23/20 06:30 Total Protein 6.0 g/dL (6.4-8.2) L 09/23/20 06:30 Albumin 2.6 g/dL (3.2-5.0) L 09/23/20 06:30 Albumin/Globulin Ratio 0.8 RATIO (0.9-2.4) L 09/23/20 06:30 - Assessment Food / Nutrition-Related History:: NGT clamped this AM. Will d/c tomorrow and trial clear liquids if tolerated per surgery. TPN started infusinL 4.25% AA/10% dextrose solution at 84mL/hour to provide 1020 calories, 84 g protein. Also has KCl/dextrose per nephrology for hypernatremia. Wt decrease of 2.4kg/2.1% since admission (09/14). - Nutrition Intervention Nutrition Prescription:: Estimated energy needs: 5222-7043 calories, 110-135g protein/day. However, d/t refeeding risk will aim for 10-15 kcal/kg/day (1610-9231 calories). - Food / Nutrient Delivery Interventions Summary of nutrition intervention:: Pt w/ risk for malnutrition given reported inadequate oral intake and wt loss over past 6-8 weeks [employer]. Minimal PO intake over past 8 days, also places pt at significant risk for refeeding syndrome. D/t refeeding risk will aim for 10-15 kcal/kg/day (2635-0223 calories). Consulted by provided to renew TPN. Nutrition support ordered as / adjusted to:: Consulted by provider to renew TPN- will order 2L @84mL/hour 4.25% AA/10% dextrose solution w/ electrolytes/MVI/trace minerals to provide 1020 calories, 200 g dextrose, 84 g AA. Will continue appropriate labs for monitoring of TPN, signs/symptoms of refeeding syndrome. Continue daily wts. Recommend advance diet as tolerated to transitional; continue TPN until adequate intake/tolerance of diet is established and wean TPN as appropriate. - MNT Monitoring Further MNT monitoring and evaluation required?: Yes MNT Follow-up in:: 1-2 days
[2020-09-23 23:40] LABS: Bedside Glucose 150 mg/dL (70-110)
[2020-09-24] VITALS (15 sets, daily range): BP systolic 107–142; BP diastolic 50–96; PULSE 62–88; RESP 16–18; TEMP 36.4–36.8; O2SAT 94–95; BMI 33.5
[2020-09-24 00:26] LABS: Bedside Glucose 139 mg/dL (70-110)
[2020-09-24 05:09] LABS: Absolute Lymphocyte Count 1.58 X10^3/uL (0.83-4.51); Absolute Neutrophil Count 12.3 X10^3/uL (2.0-7.7); Basophil# 0.02 X10^3/uL; Basophil% 0.1 % (0-1); Eosinophil# 0.13 X10^3/uL; Eosinophils% 0.7 % (0-5); Hemoglobin 8.7 g/dL (13.0-16.5); Lymphocyte # 1.58 X10^3/ul (4.0); Lymphocyte % 8.7 % (19-41); Mean Corp Hgb Conc 31.1 g/dL (32-36); Mean Corpuscular Hgb 27.1 pg (27.0-32.0); Mean Corpuscular Volume 87.2 fL (80-94); Mean Platelet Vol. 11.7 fl (6.2-12.0); Monocyte# 3.94 X10^3/uL; Monocyte% 21.6 % (0-10); NRBC Flagged by Analyzer 0 % (0-5); Neutrophil # 12.26 X10^3/uL (2.7-7.7); Neutrophil % 67.1 % (47-70); POSITIVE DIFFERENTIAL YES; Platelet Count 160 K/mm3 (150-450); RBC Distribution Width CV 14.9 % (11.6-14.6); Red Blood Count 3.21 M/mm3 (4.6-6.2); White Blood Count 18.3 K/mm3 (4.4-11.0)
[2020-09-24] MEDS: Ondansetron 4 MG/2 ML Vial IV ×2 (05:12→08:18)
[2020-09-24] MEDS: Metoprolol Tartrate 5 MG/5 ML Vial IV ×3 (05:14→18:24)
[2020-09-24 05:25] LABS: Differential Indicated SCAN CRITERIA MET
[2020-09-24 05:27] LABS: ALB/GLOB Ratio 0.8 RATIO (0.9-2.4); AST(SGOT) 102 U/L (15-37); Alanine Aminotransfer ALT/SGPT 125 U/L (16-61); Albumin, Serum 2.5 g/dL (3.2-5.0); Alkaline Phosphatase 59 U/L (45-117); Anion Gap 6 (5-15); BUN 65 mg/dL (7-18); BUN/Creat Ratio 27.2 RATIO (10-20); Chloride 103 mmol/L (98-107); Creatinine, Serum 2.39 mg/dL (0.70-1.30); EST Glomerular Filtration Rate 28 mL/min (>60); Est Glom Filt Rate - Afr Amer 34 mL/min (>60); Estimated Creatinine Clearance 25.82 ml/min; Globulin 3.2 g/dL (2.2-4.2); Glucose 162 mg/dL (74-106); Magnesium 1.7 mg/dL (1.6-2.6); Phosphorus 2.7 mg/dL (2.5-4.9); Potassium 3.5 mmol/L (3.5-5.1); Protein, Total 5.7 g/dL (6.4-8.2); Sodium Level 140 mmol/L (136-145)
[2020-09-24] MEDS: proCHLORPERazine 10 MG/2 ML Vial 5 MG IV (05:40)
[2020-09-24] MEDS: Insulin Lispro 100 UNIT/ML INSULN.PEN SC ×3 (05:45→18:23)
[2020-09-24 05:50] LABS: Bedside Glucose 184 mg/dL (70-110)
--- NOTE | 2020-09-24 07:28 | PCM.PN.BLA ---
Progress Note Abdomen is nice and soft and benign NG tube has been removed yesterday was doing really well with that today he has some nausea but no vomiting recommend he go very slow with the liquids. Still in bed but fairly weak. His abdomen soft and benign is got good bowel sounds he reports liquid bowel movements and gas. Incisions clean and intact by time to get the riccardo out we will do that later today. Also removed the Mcpherson catheter from the ileal conduit, the catheter still in the bag on the next change the catheter can be removed. He still has bilateral stents in place which usually come out in about a month. Extremities no cyanosis clubbing or edema. Assessment and plan 80-year-old male status post radical cystoprostatectomy long prolonged course due to ileus. Notable that his white blood count is going up we will consult infectious disease we will send the stool to check for C. difficile, send the urine for culture, do blood cultures. Continue TPN because of poor nutritional p.o. intake, he still only on liquid diet and very slow progression given his nausea and not feeling well. I will write for some Zofran and Phenergan to help with the nausea. Consult ID for now hold off on starting antibiotics until we know the source of infection or white count unless infectious disease wants to start on some antibiotics. STROKE Vital Signs/Narrative: Vital Signs Temp Pulse Resp BP Pulse Ox 09/24/20 05:14 64 142/63 H 09/24/20 04:00 97.7 F L 64 18 142/63 H 94 09/24/20 03:35 74
--- NOTE | 2020-09-24 07:30 | PN.SURG_ITS ---
Patient Problems: Active and Suspected Problems (Last Reviewed 09/14/20 @ 10:[address] Aramis Matthew MD) Bladder cancer (Acute) Incarcerated left inguinal hernia (Acute) Subjective: Patient reports some nausea. He is still passing flatus and had a bowel movement last night. - Physical Exam Vitals/I&O's: Vital Signs Temp Pulse Resp BP Pulse Ox 97.7 F L 64 18 142/63 H 94 09/24/20 04:00 09/24/20 05:14 09/24/20 04:00 09/24/20 05:14 09/24/20 04:00 Oxygen Flow Rate (L/min) 2 Oxygen Delivery Method Room Air Weight: 240 lb 11.916 oz Body Mass Index (BMI) 33.5 Intake and Output for Last 24 Hours 09/22/20 09/23/20 09/24/20 23:59 23:59 23:59 Intake Total 4338.2 / 4538.2 6014.58 / 6014.58 1010 / 1010 Output Total 3500 / 4150 2975 / 2975 650 / 650 Balance 838.2 / 388.2 3039.58 / 3039.58 360 / 360 General: Alert, Oriented x3 Lungs: Normal air movement Abdomen: Soft, Non Tender, Non-Distended Extremities: No clubbing Laboratory Results 09/23/20 12:10: POC Glucose 162 H 09/23/20 18:11: POC Glucose 139 H 09/23/20 23:33: POC Glucose 150 H 09/24/20 04:53: WBC 18.3 H, RBC 3.21 L, Hgb 8.7 L, Hct 28.0 L, MCV 87.2, MCH 27.1, MCHC 31.1 L, RDW Std Deviation 47.0 H, RDW Coeff of Jeff 14.9 H, Plt Count 160, MPV 11.7, Immature Gran % (Auto) 1.800 H, Neut % (Auto) 67.1, Lymph % (Auto) 8.7 L, [place] % (Auto) 21.6 H, Eos % (Auto) 0.7, Baso % (Auto) 0.1, Absolute Neuts (auto) 12.3 H, Absolute Lymphs (auto) 1.58, Nucleated RBC % 0, Diff Path Review February09/24/20 04:53: Sodium 140, Potassium 3.5, Chloride 103, Carbon Dioxide 31.0, Anion Gap 6, BUN 65 H, Creatinine 2.39 H, Estim Creat Clear Calc 25.82, Est GFR (MDRD) Af Amer 34 L, Est GFR (MDRD) Non-Af 28 L, BUN/Creatinine Ratio 27.2 H, Glucose 162 H, Calcium 8.0 L, Phosphorus 2.7, Magnesium 1.7, Total Bilirubin 1.00, AST 102 H, ALT 125 H, Alkaline Phosphatase 59, Total Protein 5.7 L, Albumin 2.5 L, Globulin 3.2, Albumin/Globulin Ratio 0.8 L 09/24/20 05:45: POC Glucose 184 H Current Medications Acetaminophen (Acetaminophen 325 Mg Tablet) 325 - 650 mg PO Q4H PRN PRN PRN Reason: pain score 1-10/fever/headache Docusate Sodium (Docusate Sodium 100 Mg Capsule) 200 mg PO BID [facility] Last Admin: 09/23/20 20:43 Dose: 200 mg Documented by: Enoxaparin Sodium (Enoxaparin 30 Mg/0.3 Ml Syringe) 30 mg SC DAILY [facility] Last Admin: 09/23/20 10:38 Dose: 30 mg Documented by: Sodium Chloride () 250 mls @ 15 mls/hr IV .[id number] PRN PRN Reason: Saline Flush Sodium Chloride () 250 mls @ 15 mls/hr IV .[id number] PRN PRN Reason: Additional IVPB Infusion Potassium Chloride 20 meq/ (Dextrose) 1,010 mls @ 125 mls/hr IV .Q8H5M [facility] Last Admin: 09/24/20 03:53 Dose: 125 mls/hr Documented by: Pantoprazole Sodium 40 mg/ (Sodium Chloride) 110 mls @ 330 mls/hr IV Q24 [facility] Last Infusion: 09/23/20 10:57 Dose: Infused Documented by: Multivitamins 10 ml/ Chromium/Copper/Manganese/Seleni/Zn 1 ml/ Folic Acid 1 mg/ Amino Acids/Electrolytes/Dextrose 2,011 mls @ 84 mls/hr IV .[id number] [facility] Stop: 09/24/20 15:48 Last Admin: 09/23/20 19:43 Dose: 84 mls/hr Documented by: Insulin Human Lispro (Insulin Lispro 100 Unit/Ml Insuln.Pen) 0 unit SC Q6 [facility]; Protocol Last Admin: 09/24/20 05:45 Dose: 1 u Documented by: Metoprolol Tartrate (Metoprolol Tartrate 5 Mg/5 Ml Vial) 5 mg IV Q6 [facility] Last Admin: 09/24/20 05:14 Dose: 5 mg Documented by: Ondansetron HCl (Ondansetron 4 Mg/2 Ml Vial) 4 mg IV Q8H PRN PRN Reason: Nausea Last Admin: 09/24/20 05:12 Dose: 4 mg Documented by: Prochlorperazine Edisylate (Prochlorperazine 10 Mg/2 Ml Vial) 5 mg IV Q6H PRN PRN PRN Reason: NAUSEA/VOMITING Last Admin: 09/24/20 05:40 Dose: 5 mg Documented by: Sodium Chloride (0.9% Nacl Peripheral Flush Adult/Peds) 5 - 15 ml IV UD PRN PRN Reason: SALINE FLUSH Last Admin: 09/23/20 23:30 Dose: 10 ml Documented by: Medical Necessity - Tobacco Use Smoking Status: Former smoker Assessment/Plan All Active Problems (Last Reviewed 09/14/20 @ 10:[address] Aramis Matthew MD) Bladder tumor (Acute) Bladder cancer (Acute) Incarcerated left inguinal hernia (Acute) Gross hematuria (Acute) Abrasion of right hand, initial encounter (Acute) Contusion of unspecified front wall of thorax, initial encounter (Acute) 80-year-old male with ileus 1. The patient had a successful clamping trial yesterday and had a bowel movement yesterday morning. NG was removed and he was started on clear liquid diet. He does report some nausea overnight and he did have a loose bowel movement overnight. He is still passing flatus and he is having no abdominal pain and is soft and nondistended. 2. Patient's white count has been trending up. I believe that it was causing his white count to trend upward is causing his ileus to return. I would recommend antibiotics for possible UTI or ID consultation. Jose Manuel Mccord MD Pager: [facility] [address] [place] [address], [address] [place] [address] Office:
--- NOTE | 2020-09-24 08:15 | NURSING ---
In to change the urostomy appliance. removed old appliance. Dr Matthew had removed the red rubber catheter this am. the stoma remains beefy red and well budded. peristomal skin is intact.
[2020-09-24] MEDS: 0.9% NaCl Peripheral Flush Adult/Peds IV ×3 (08:18→18:23)
--- NOTE | 2020-09-24 08:37 | EKG12_ITS ---
Test Reason : Blood Pressure : / mmHG Vent. Rate : 076 BPM Atrial Rate : 076 BPM P-R Int : 188 ms QRS Dur : 092 ms QT Int : 390 ms P-R-T Axes : 045 -52 019 degrees QTc Int : 438 ms Sinus rhythm with frequent Premature ventricular complexes and Premature atrial complexes Left axis deviation Low voltage QRS Septal infarct , age undetermined cannot be excluded Inferior infarct Age undetermined, cannot be excluded Abnormal ECG Confirmed by ANDREA GARCIA, GEETHA ([id number]), international editorial producer JAVIER TREVIÑO ([id number]) on 09/25/2020 12:37:36 PM Referred By: Aramis Matthew Confirmed By:GEETHA MENDEZ MD
--- NOTE | 2020-09-24 10:21 | PN.RENAL_ITS ---
Patient Problems: Active and Suspected Problems (Last Reviewed 09/14/20 @ 10:[address] Aramis Matthew MD) Bladder cancer (Acute) Incarcerated left inguinal hernia (Acute) Subjective: Patient denies abdominal pain nausea vomiting shortness of breath or chest pain. - Physical Exam Vitals/I&O's: Vital Signs Temp Pulse Resp BP Pulse Ox 97.5 F L 72 18 129/96 H 95 09/24/20 08:31 09/24/20 08:31 09/24/20 08:31 09/24/20 08:31 09/24/20 08:31 Oxygen Flow Rate (L/min) 2 Oxygen Delivery Method Room Air Weight: 109.2 kg Body Mass Index (BMI) 33.5 Intake and Output for Last 24 Hours 09/22/20 09/23/20 09/24/20 23:59 23:59 23:59 Intake Total 4338.2 / 4538.2 6014.58 / 6014.58 1010 / 1010 Output Total 3500 / 4150 2975 / 2975 650 / 650 Balance 838.2 / 388.2 3039.58 / 3039.58 360 / 360 General: Alert, Cooperative HEENT: Atraumatic, Normocephalic Oral: Moist Mucosa Neck: Supple, Trachea Midline Lungs: Clear to auscultation, Normal air movement Cardiovascular: Normal S1, Normal S2 Abdomen: Bowel Sounds Present, Soft, Non Tender, Obese Laboratory Results 09/23/20 12:10: POC Glucose 162 H 09/23/20 18:11: POC Glucose 139 H 09/23/20 23:33: POC Glucose 150 H 09/24/20 04:53: WBC 18.3 H, RBC 3.21 L, Hgb 8.7 L, Hct 28.0 L, MCV 87.2, MCH 27.1, MCHC 31.1 L, RDW Std Deviation 47.0 H, RDW Coeff of Jeff 14.9 H, Plt Count 160, MPV 11.7, Immature Gran % (Auto) 1.800 H, Neut % (Auto) 67.1, Lymph % (Auto) 8.7 L, [place] % (Auto) 21.6 H, Eos % (Auto) 0.7, Baso % (Auto) 0.1, Absolute Neuts (auto) 12.3 H, Absolute Lymphs (auto) 1.58, Nucleated RBC % 0, Diff Path Review February09/24/20 04:53: Sodium 140, Potassium 3.5, Chloride 103, Carbon Dioxide 31.0, Anion Gap 6, BUN 65 H, Creatinine 2.39 H, Estim Creat Clear Calc 25.82, Est GFR (MDRD) Af Amer 34 L, Est GFR (MDRD) Non-Af 28 L, BUN/Creatinine Ratio 27.2 H, Glucose 162 H, Calcium 8.0 L, Phosphorus 2.7, Magnesium 1.7, Total Bilirubin 1.00, AST 102 H, ALT 125 H, Alkaline Phosphatase 59, Total Protein 5.7 L, Albumin 2.5 L, Globulin 3.2, Albumin/Globulin Ratio 0.8 L 09/24/20 05:45: POC Glucose 184 H 09/24/20 08:56: Troponin I 0.024 Current Medications Acetaminophen (Acetaminophen 325 Mg Tablet) 325 - 650 mg PO Q4H PRN PRN PRN Reason: pain score 1-10/fever/headache Docusate Sodium (Docusate Sodium 100 Mg Capsule) 200 mg PO BID [facility] Last Admin: 09/23/20 20:43 Dose: 200 mg Documented by: Enoxaparin Sodium (Enoxaparin 30 Mg/0.3 Ml Syringe) 30 mg SC DAILY [facility] Last Admin: 09/23/20 10:38 Dose: 30 mg Documented by: Potassium Chloride 20 meq/ (Dextrose) 1,010 mls @ 125 mls/hr IV .Q8H5M [facility] Last Admin: 09/24/20 03:53 Dose: 125 mls/hr Documented by: Pantoprazole Sodium 40 mg/ (Sodium Chloride) 110 mls @ 330 mls/hr IV Q24 [facility] Last Infusion: 09/23/20 10:57 Dose: Infused Documented by: Multivitamins 10 ml/ Chromium/Copper/Manganese/Seleni/Zn 1 ml/ Folic Acid 1 mg/ Amino Acids/Electrolytes/Dextrose 2,011 mls @ 84 mls/hr IV .[id number] [facility] Stop: 09/24/20 15:48 Last Admin: 09/23/20 19:43 Dose: 84 mls/hr Documented by: Insulin Human Lispro (Insulin Lispro 100 Unit/Ml Insuln.Pen) 0 unit SC Q6 [facility]; Protocol Last Admin: 09/24/20 05:45 Dose: 1 u Documented by: Metoclopramide HCl (Metoclopramide 10 Mg/2 Ml Vial) 5 mg IV Q6 [facility] Metoprolol Tartrate (Metoprolol Tartrate 5 Mg/5 Ml Vial) 5 mg IV Q6 [facility] Last Admin: 09/24/20 05:14 Dose: 5 mg Documented by: Ondansetron HCl (Ondansetron 4 Mg/2 Ml Vial) 4 mg IV Q6H [facility] Stop: 09/26/20 23:59 Last Admin: 09/24/20 08:18 Dose: 4 mg Documented by: Prochlorperazine Edisylate (Prochlorperazine 10 Mg/2 Ml Vial) 5 mg IV Q6H PRN PRN PRN Reason: NAUSEA/VOMITING Last Admin: 09/24/20 05:40 Dose: 5 mg Documented by: Sodium Chloride (0.9% Nacl Peripheral Flush Adult/Peds) 5 - 15 ml IV UD PRN PRN Reason: SALINE FLUSH Last Admin: 09/24/20 08:18 Dose: 10 ml Documented by: Medical Necessity - Tobacco Use Smoking Status: Former smoker Assessment/Plan All Active Problems (Last Reviewed 09/14/20 @ 10:[address] Aramis Matthew MD) Bladder tumor (Acute) Bladder cancer (Acute) Incarcerated left inguinal hernia (Acute) Gross hematuria (Acute) Abrasion of right hand, initial encounter (Acute) Contusion of unspecified front wall of thorax, initial encounter (Acute) MERLE prerenal/ATN with persistent hypotension CKD baseline creatinine 1.8-2.4 invasive bladder cancer s/p laparoscopic converted to open radical cystoprostatectomy. Bilateral pelvic lymph node dissection and formation of a ileal conduit. s/p right inguinal hernia repair with mesh History of hypertension Scr 2.39 back to baseline Hold losartan On BB iv bp ok monitor avoid nephrotoxins d/w patient
--- NOTE | 2020-09-24 11:09 | PCM.NTREPORT ---
Nutrition Therapy Report - History Nutrition Services has been consulted to:: Manage parenteral nutrition Current diet / nutrition support order:: clear liquids; TPN- 2L 4.25% AA/ 10% dextrose to provide 1020 calories, 84 g protein - Anthropometric Measurements Height:: 5 ft 11 in Weight:: 109.2 kg Body Mass Index (BMI):: 33.5 - Relevant Labs Relevant Labs:: WBC 18.3 K/mm3 (4.4-11.0) H 09/24/20 04:53 RBC 3.21 M/mm3 (4.6-6.2) L 09/24/20 04:53 Hgb 8.7 g/dL (13.0-16.5) L 09/24/20 04:53 Hct 28.0 % (40-54) L 09/24/20 04:53 MCH 26.9 pg (27.0-32.0) L 09/23/20 06:30 MCHC 31.1 g/dL (32-36) L 09/24/20 04:53 RDW Std Deviation 47.0 fl (35.1-43.9) H 09/24/20 04:53 RDW Coeff of Jeff 14.9 % (11.6-14.6) H 09/24/20 04:53 Plt Count 104 K/mm3 (150-450) L 09/18/20 06:16 MPV 12.9 fl (6.2-12.0) H 09/19/20 05:15 Immature Gran % (Auto) 1.800 % (0.0-0.9) H 09/24/20 04:53 Lymph % (Auto) 8.7 % (19-41) L 09/24/20 04:53 [place] % (Auto) 21.6 % (0-10) H 09/24/20 04:53 Absolute Neuts (auto) 12.3 X10^3/uL (2.0-7.7) H 09/24/20 04:53 Sodium 147 mmol/L (136-145) H 09/23/20 06:30 Potassium 3.2 mmol/L (3.5-5.1) L 09/23/20 06:30 Chloride 112 mmol/L (98-107) H 09/22/20 07:40 Carbon Dioxide 35.0 mmol/L (21.0-32.0) H 09/23/20 06:30 Anion Gap 4 (5-15) L 09/22/20 07:40 BUN 65 mg/dL (7-18) H 09/24/20 04:53 Creatinine 2.39 mg/dL (0.70-1.30) H 09/24/20 04:53 Est GFR (MDRD) Af Amer 34 mL/min (>60) L 09/24/20 04:53 Est GFR (MDRD) Non-Af 28 mL/min (>60) L 09/24/20 04:53 BUN/Creatinine Ratio 27.2 RATIO (10-20) H 09/24/20 04:53 Glucose 162 mg/dL (74-106) H 09/24/20 04:53 Calcium 8.0 mg/dL (8.5-10.1) L 09/24/20 04:53 Phosphorus 2.4 mg/dL (2.5-4.9) L 09/23/20 06:30 Total Bilirubin 1.10 mg/dL (0.20-1.00) H 09/23/20 06:30 AST 102 U/L (15-37) H 09/24/20 04:53 ALT 125 U/L (16-61) H 09/24/20 04:53 Total Protein 5.7 g/dL (6.4-8.2) L 09/24/20 04:53 Albumin 2.5 g/dL (3.2-5.0) L 09/24/20 04:53 Albumin/Globulin Ratio 0.8 RATIO (0.9-2.4) L 09/24/20 04:53 - Assessment Food / Nutrition-Related History:: NGT removed. Clear liquid diet ordered. Will continue TPN today per providers d/t limited PO intake. TPN currently infusinL 4.25% AA/10% dextrose solution at 84mL/hour to provide 1020 calories, 84 g protein. Wt stable. Mag/phos/sodium WNL. IV fluids running per nephrology. - Nutrition Intervention Nutrition Prescription:: Per refeeding guidelines, can increase calories/day to 15-25 kcal/kg/day ([id number]). - Food / Nutrient Delivery Interventions Summary of nutrition intervention:: Consulted by provided to renew TPN. Day #4 TPN. No insulin or famotidine to TPN per provider. Will order TPN and add 120mL ensure clear 4x/day. Nutrition support ordered as / adjusted to:: Consulted by provider to renew TPN- will order 2L @84mL/hour 5% AA/20% dextrose solution w/ electrolytes/MVI/trace minerals to provide 1760 calories, 100 g AA. Will continue appropriate labs for monitoring of TPN, signs/symptoms of refeeding syndrome. Will check triglycerides. Continue daily wts. Recommend advance diet as tolerated to transitional; continue TPN until adequate intake/tolerance of diet is established and wean TPN as appropriate. Will add ensure clear w/ medpass. - MNT Monitoring Further MNT monitoring and evaluation required?: Yes MNT Follow-up in:: 1-2 days - Will monitor TPN and renew/manage daily as ordered by provider.
[2020-09-24] MEDS: Enoxaparin 30 MG/0.3 ML Syringe SC (12:52)
[2020-09-24] MEDS: Metoclopramide 10 MG/2 ML Vial 5 MG IV ×2 (12:53→18:24)
--- NOTE | 2020-09-24 13:01 | PCM.PN.HOSP ---
Patient Problems: Active and Suspected Problems (Last Reviewed 09/14/20 @ 10:[address] Aramis Matthew MD) Bladder cancer (Acute) Incarcerated left inguinal hernia (Acute) Subjective: Patient seen and examined. He had no complaints apart from weakness. Review of systems otherwise negative. WBC noted to have trended upwards to 18. ID consulted. Vitals/I&O's: Vital Signs Temp Pulse Resp BP Pulse Ox 97.5 F L 85 18 116/50 L 95 09/24/20 08:31 09/24/20 12:54 09/24/20 08:31 09/24/20 12:54 09/24/20 08:31 Oxygen Flow Rate (L/min) 2 Oxygen Delivery Method Room Air Weight: 240 lb 11.916 oz Body Mass Index (BMI) 33.5 Intake and Output for Last 24 Hours 09/22/20 09/23/20 09/24/20 23:59 23:59 23:59 Intake Total 4338.2 / 4538.2 6014.58 / 6014.58 1010 / 1010 Output Total 3500 / 4150 2975 / 2975 650 / 650 Balance 838.2 / 388.2 3039.58 / 3039.58 360 / 360 General: Alert, Oriented x3, Cooperative, Lethargic HEENT: Atraumatic, PERRLA, EOMI, Normocephalic Oral: Dry Mucosa Neck: Supple, No JVD, Negative Carotid Bruits Lungs: Clear to auscultation, Normal air movement, No rhonchi, No wheeze Cardiovascular: Regular rate, Regular Rhythm, Normal S1, Normal S2, No murmurs Abdomen: Bowel Sounds Present, Soft, Non Tender, Non-Distended, No Hepato-splenomegaly Extremities: No clubbing, No cyanosis, No edema, Capillary Refill Less than 3 Seconds Skin: No rashes, No breakdown Musculoskeletal: No Tenderness to Palpation of Joints or Extremities Lymphatic: No Cervical, Supraclavicular, or Inguinal Adenopathy Neurological: Cranial nerves II-XII grossly intact, Neuro grossly intact, Motor Exam 5/5 strength throughout Psych/Mental Status: Normal Affect, Appropriate, Alert and oriented to time, place, person, mood and affect Laboratory Results 09/23/20 18:11: POC Glucose 139 H 09/23/20 23:33: POC Glucose 150 H 09/24/20 04:53: WBC 18.3 H, RBC 3.21 L, Hgb 8.7 L, Hct 28.0 L, MCV 87.2, MCH 27.1, MCHC 31.1 L, RDW Std Deviation 47.0 H, RDW Coeff of Jeff 14.9 H, Plt Count 160, MPV 11.7, Immature Gran % (Auto) 1.800 H, Neut % (Auto) 67.1, Lymph % (Auto) 8.7 L, [place] % (Auto) 21.6 H, Eos % (Auto) 0.7, Baso % (Auto) 0.1, Absolute Neuts (auto) 12.3 H, Absolute Lymphs (auto) 1.58, Nucleated RBC % 0, Diff Path Review February09/24/20 04:53: Sodium 140, Potassium 3.5, Chloride 103, Carbon Dioxide 31.0, Anion Gap 6, BUN 65 H, Creatinine 2.39 H, Estim Creat Clear Calc 25.82, Est GFR (MDRD) Af Amer 34 L, Est GFR (MDRD) Non-Af 28 L, BUN/Creatinine Ratio 27.2 H, Glucose 162 H, Calcium 8.0 L, Phosphorus 2.7, Magnesium 1.7, Total Bilirubin 1.00, AST 102 H, ALT 125 H, Alkaline Phosphatase 59, Total Protein 5.7 L, Albumin 2.5 L, Globulin 3.2, Albumin/Globulin Ratio 0.8 L 09/24/20 05:45: POC Glucose 184 H 09/24/20 08:56: Troponin I 0.024 09/24/20 11:07: Troponin I 0.020 Diagnostic Data Chest X-Ray 09/12/20 14:02 IMPRESSION: No acute cardiopulmonary findings or changes. Negative for consolidation, other infiltrates, atelectasis or pleural effusion. Normal cardiac size. Atherosclerotic changes of the thoracic aorta. Electronically Signed: Felicitas Lema MD at 20:48 EST , Service support , Renal Ultrasound 09/17/20 07:30 IMPRESSION: Bilateral hydronephrosis left worse than right. Electronically Signed: Jesus Carver, at 13:47 EST , Service support , Abdomen/Pelvis CT 09/20/20 14:19 IMPRESSION: 1. Interval cystectomy with creation of right lower quadrant ileal conduit which contains a Mcpherson catheter. There are bilateral ureteral stents with migration of the left ureteral stent into the distal ureter and the conduit with moderate ureteral dilatation and hydronephrosis. 2. Nasogastric tube with the tip in the body the stomach. 3. Moderate small bowel obstruction with the transition point not clearly identified. 4. Surgical drain in the left side of the pelvis without seroma, hematoma, or abscess. Electronically Signed: Lorenzo Abbasi MD at 17:03 EST Tel , Service support , Small Bowel X-Ray 09/21/20 09:10 IMPRESSION: Small bowel obstruction. The GASTROGRAFIN remained within the stomach. Electronically Signed: Jesus Carver, at 14:04 EST , Service support , KUB X-Ray 09/22/20 09:00 IMPRESSION: Slightly improved partial small bowel obstruction with some oral contrast in the colon. Electronically Signed: Lorenzo Abbasi MD at 9:22 EST Tel , Service support , Current Medications Acetaminophen (Acetaminophen 325 Mg Tablet) 325 - 650 mg PO Q4H PRN PRN PRN Reason: pain score 1-10/fever/headache Docusate Sodium (Docusate Sodium 100 Mg Capsule) 200 mg PO BID [facility] Last Admin: 09/24/20 12:54 Dose: Not Given Documented by: Enoxaparin Sodium (Enoxaparin 30 Mg/0.3 Ml Syringe) 30 mg SC DAILY [facility] Last Admin: 09/24/20 12:52 Dose: 30 mg Documented by: Potassium Chloride 20 meq/ (Dextrose) 1,010 mls @ 125 mls/hr IV .Q8H5M [facility] Last Admin: 09/24/20 03:53 Dose: 125 mls/hr Documented by: Pantoprazole Sodium 40 mg/ (Sodium Chloride) 110 mls @ 330 mls/hr IV Q24 [facility] Last Admin: 09/24/20 12:52 Dose: 330 mls/hr Documented by: Multivitamins 10 ml/ Chromium/Copper/Manganese/Seleni/Zn 1 ml/ Folic Acid 1 mg/ Amino Acids/Electrolytes/Dextrose 2,011 mls @ 84 mls/hr IV .[id number] [facility] Stop: 09/24/20 15:48 Last Admin: 09/23/20 19:43 Dose: 84 mls/hr Documented by: Multivitamins 10 ml/ Chromium/Copper/Manganese/Seleni/Zn 1 ml/ Folic Acid 1 mg/ Amino Acids/Electrolytes 2,011 mls @ 84 mls/hr IV .[id number] [facility] Stop: 09/25/20 15:48 Insulin Human Lispro (Insulin Lispro 100 Unit/Ml Insuln.Pen) 0 unit SC Q6 [facility]; Protocol Last Admin: 09/24/20 12:59 Dose: 1 u Documented by: Metoclopramide HCl (Metoclopramide 10 Mg/2 Ml Vial) 5 mg IV Q6 [facility] Last Admin: 09/24/20 12:53 Dose: 5 mg Documented by: Metoprolol Tartrate (Metoprolol Tartrate 5 Mg/5 Ml Vial) 5 mg IV Q6 [facility] Last Admin: 09/24/20 12:54 Dose: 5 mg Documented by: Nutritional Formula (Lactose Free) (Ensure Clear 120 Ml Liquid) 120 ml PO 4X/DAY [facility] Ondansetron HCl (Ondansetron 4 Mg/2 Ml Vial) 4 mg IV Q6H [facility] Stop: 09/26/20 23:59 Last Admin: 09/24/20 08:18 Dose: 4 mg Documented by: Prochlorperazine Edisylate (Prochlorperazine 10 Mg/2 Ml Vial) 5 mg IV Q6H PRN PRN PRN Reason: NAUSEA/VOMITING Last Admin: 09/24/20 05:40 Dose: 5 mg Documented by: Sodium Chloride (0.9% Nacl Peripheral Flush Adult/Peds) 5 - 15 ml IV UD PRN PRN Reason: SALINE FLUSH Last Admin: 09/24/20 12:53 Dose: 10 ml Documented by: STROKE Vital Signs/Narrative: Vital Signs Pulse BP 09/24/20 12:54 85 116/50 L Medical Necessity - Tobacco Use Smoking Status: Former smoker Assessment/Plan All Active Problems (Last Reviewed 09/14/20 @ 10:[address] Aramis Matthew MD) Bladder tumor (Acute) Bladder cancer (Acute) Incarcerated left inguinal hernia (Acute) Gross hematuria (Acute) Abrasion of right hand, initial encounter (Acute) Contusion of unspecified front wall of thorax, initial encounter (Acute) #Invasive bladder cancer S/p laparoscopic radical cystoprostatectomy with creation of ileal conduit and repair of incarcerated left inguinal hernia on 09/14/2020 Patient has an elevated white cell count today of 18. Patient subsequently needed to have an NG tube inserted on account of intestinal obstruction. This was conservatively managed as planned surgery was canceled after he had a bowel movement. Urology on board. ID consulted on account of elevated white cell count. #small bowel obstruction NG tube is out patient still on tube feeding general surgery on [facility] #Leucocytosis WBC is up to 18 today. There is no clear evidence of infection. Initial blood culture showed no growth after 5 days repeat blood cultures are pending. Initial urine cultures also showed no growth and a repeat urine cultures admit date. Covid test was negative. ID consulted; await rec's #History of non sustained ventricular tachycardia 2D echo from december 2019 showed EF of 65%, with stage 2 diastolic dysfunction and RVSP of 35mmHg on IV metoprolol follows up with cardiology at [facility] # Hypertension: controlled. Losartan on hold o/a of MERLE #Hyperlipidemia: on statin #MERLE on CKD: nephrology on board. Cr is 2.39 today. baseline Cr is ~ 1.6 Hypernatremia: resolved. sodium is down to 140 today DVT prophylaxis: on lovenox 30mg bid Inpatient E&M: [id number] [facility] L3
[2020-09-24 13:13] LABS: Pathologist Review Reviewed
[2020-09-24 13:13] LABS: Pathologist Review Reviewed
[2020-09-24 13:15] LABS: Bedside Glucose 172 mg/dL (70-110)
[2020-09-24] MEDS: Ensure Clear 120 ML Liquid PO ×2 (16:31→21:02)
--- NOTE | 2020-09-24 16:35 | CON.PCM_ITS ---
Problem List (1) Leukocytosis Status: Acute Reason for Consult: leukocytosis Consulted by: Dr. Matthew History of Present Illness: The patient is a 80 year old M with bladder cancer, on 09/14 had Laparoscopic converted to open radical cystoprostatectomy by Dr. Matthew and Dr. Mccord. Urostomy placed and hernia repair done. Feeling ok since surgery except for some fatigue. Course complicated by ileus, now resolving. No fever, no chills, no cough, no SOB, no abd pain, no change in taste/smell. Incisions are doing well. No diarrhea. Full ROS performed and neg except as noted above. - Medical History Surgical History: reviewed Allergies/Adverse Reactions: Allergies atenolol Adverse Reaction (Verified 09/14/20 09:51) hypotension HYPOTENSION tamsulosin [From Flomax] Adverse Reaction (Verified 09/14/20 09:51) PT UNSURE OF REACTION passed out Home Medications: Ambulatory Orders Medication Instructions Recorded Losartan Potassium [Cozaar] 50 mg PO DAILY 05/01/16 Simvastatin [Zocor] 10 mg PO QHS 05/01/16 Aspirin [Aspirin, Baby] 81 mg PO DAILY@0800 05/01/19 Multivitamin [Daily Value] 1 ea PO DAILY 12/11/19 Vit C/E/Zn/Coppr/Lutein/Zeaxan 1 ea PO BID 12/11/19 [Preservision Areds 2 Softgel] Metoprolol Tartrate [Lopressor 25 mg PO BID #60 tab 12/13/19 (beta neetu)] - Social History SMOKING STATUS:: Former smoker Vital Signs Temp Pulse Resp BP Pulse Ox 98.0 F 88 18 107/51 L 94 09/24/20 13:30 09/24/20 13:30 09/24/20 13:30 09/24/20 13:30 09/24/20 13:30 Oxygen Flow Rate (L/min) 2 Oxygen Delivery Method Room Air Weight: 109.2 kg Body Mass Index (BMI) 33.5 Laboratory Tests Past 24 Hrs 09/23/20 09/24/20 09/24/20 06:30 04:53 04:53 WBC 18.3 H RBC 3.21 L Hgb 8.7 L Hct 28.0 L MCV 87.2 MCH 27.1 MCHC 31.1 L RDW Std Deviation 47.0 H RDW Coeff of Jeff 14.9 H Plt Count 160 MPV 11.7 Immature Gran % (Auto) 1.800 H Neut % (Auto) 67.1 Lymph % (Auto) 8.7 L [place] % (Auto) 21.6 H Eos % (Auto) 0.7 Baso % (Auto) 0.1 Absolute Neuts (auto) 12.3 H Absolute Lymphs (auto) 1.58 Nucleated RBC % 0 Diff Path Review Reviewed Reviewed Sodium 140 Potassium 3.5 Chloride 103 Carbon Dioxide 31.0 Anion Gap 6 BUN 65 H Creatinine 2.39 H Estim Creat Clear Calc 25.82 Est GFR (MDRD) Af Amer 34 L Est GFR (MDRD) Non-Af 28 L BUN/Creatinine Ratio 27.2 H Glucose 162 H Calcium 8.0 L Phosphorus 2.7 Magnesium 1.7 Total Bilirubin 1.00 AST 102 H ALT 125 H Alkaline Phosphatase 59 Troponin I Total Protein 5.7 L Albumin 2.5 L Globulin 3.2 Albumin/Globulin Ratio 0.8 L 09/24/20 09/24/20 09/24/20 08:56 11:07 15:03 WBC RBC Hgb Hct MCV MCH MCHC RDW Std Deviation RDW Coeff of Jeff Plt Count MPV Immature Gran % (Auto) Neut % (Auto) Lymph % (Auto) [place] % (Auto) Eos % (Auto) Baso % (Auto) Absolute Neuts (auto) Absolute Lymphs (auto) Nucleated RBC % Diff Path Review Sodium Potassium Chloride Carbon Dioxide Anion Gap BUN Creatinine Estim Creat Clear Calc Est GFR (MDRD) Af Amer Est GFR (MDRD) Non-Af BUN/Creatinine Ratio Glucose Calcium Phosphorus Magnesium Total Bilirubin AST ALT Alkaline Phosphatase Troponin I 0.024 0.020 0.021 Total Protein Albumin Globulin Albumin/Globulin Ratio - Other Studies Radiology: [] reviewed Other Studies: [] Route of nutrition/ use of supplements: [] Nutritional Intake: [] IV Site: [] Mcpherson Catheter: [] - Physical Exam General: Alert, Oriented x3, Cooperative, No apparent distress HEENT: Atraumatic, PERRLA, EOMI Neck: Supple, No Nodes Lungs: Clear to auscultation, Normal air movement Cardiovascular: Regular rate, Regular Rhythm Abdomen: Soft, Non Tender, Non-Distended Extremities: No edema Skin: No rashes, Incision - surgical sites with no drainage or inflammation IV Site: Peripheral, without redness Musculoskeletal: No Tenderness to Palpation of Joints or Extremities Neurological: Cranial nerves II-XII grossly intact - Assessment/Plan Antibiotics: [] Assessment/Plan: [] Active and Suspected Problems (Last Reviewed 09/14/20 @ 10:[address] Aramis Matthew MD) Bladder cancer (Acute) Incarcerated left inguinal hernia (Acute) Leukocytosis s/p surgery 09/14 with bladder/prostate resection and ileal conduit. Relatively asymptomatic. Surgical sites look good. Cdiff ordered. Will get cbc in AM, agree with holding off abx for now. Not clear if ileus was caused by start of an infection vs ileus/GI discomfort leading to elevation in wbc. Will follow, thank you
[2020-09-24 18:26] LABS: Bedside Glucose 194 mg/dL (70-110)
[2020-09-25] VITALS (15 sets, daily range): BP systolic 123–143; BP diastolic 44–73; PULSE 64–89; RESP 16–18; TEMP 36.4–36.6; O2SAT 95–97; BMI 33.6
[2020-09-25] MEDS: Metoprolol Tartrate 5 MG/5 ML Vial IV ×5 (00:01→23:46)
[2020-09-25] MEDS: Metoclopramide 10 MG/2 ML Vial 5 MG IV ×5 (00:02→23:53)
[2020-09-25] MEDS: Insulin Lispro 100 UNIT/ML INSULN.PEN SC ×5 (00:02→23:45)
[2020-09-25 00:16] LABS: Bedside Glucose 194 mg/dL (70-110)
[2020-09-25] MEDS: Ondansetron 4 MG/2 ML Vial IV (05:55)
[2020-09-25 06:05] LABS: Bedside Glucose 181 mg/dL (70-110)
[2020-09-25 07:07] LABS: Hematocrit 29.3 % (40-54); Hemoglobin 9.2 g/dL (13.0-16.5); Mean Corp Hgb Conc 31.4 g/dL (32-36); Mean Corpuscular Hgb 27.1 pg (27.0-32.0); Mean Corpuscular Volume 86.4 fL (80-94); Mean Platelet Vol. 12.4 fl (6.2-12.0); Platelet Count 177 K/mm3 (150-450); RBC Distribution Width CV 14.9 % (11.6-14.6); RBC Distribution Width SD 46.1 fl (35.1-43.9); Red Blood Count 3.39 M/mm3 (4.6-6.2)
[2020-09-25 07:37] LABS: Anion Gap 7 (5-15); BUN 64 mg/dL (7-18); BUN/Creat Ratio 26.7 RATIO (10-20); Chloride 102 mmol/L (98-107); EST Glomerular Filtration Rate 28 mL/min (>60); Est Glom Filt Rate - Afr Amer 34 mL/min (>60); Estimated Creatinine Clearance 25.71 ml/min; Glucose 200 mg/dL (74-106); Potassium 3.9 mmol/L (3.5-5.1); Sodium Level 135 mmol/L (136-145); Triglycerides 108 mg/dL
--- NOTE | 2020-09-25 07:38 | PCM.PN.HOSP ---
Patient Problems: Active and Suspected Problems (Last Reviewed 09/14/20 @ 10:[address] Aramis Matthew MD) Bladder cancer (Acute) Incarcerated left inguinal hernia (Acute) Leukocytosis (Acute) Subjective: Patient seen and examined. He has no complaints this morning. WBC has trended up to 28 today. ID on board. C. difficile pending. Vitals/I&O's: Vital Signs Temp Pulse Resp BP Pulse Ox 97.7 F L 89 18 143/64 H 95 09/25/20 06:00 09/25/20 06:00 09/25/20 06:00 09/25/20 06:00 09/25/20 06:00 Oxygen Flow Rate (L/min) 2 Oxygen Delivery Method Room Air Weight: 241 lb 6.499 oz Body Mass Index (BMI) 33.5 Intake and Output for Last 24 Hours 09/23/20 09/24/20 09/25/20 23:59 23:59 23:59 Intake Total 6014.58 / 6014.58 5223.4 / 5223.4 1142.07 / 1142.07 Output Total 2975 / 2975 1900 / 1900 1125 / 1125 Balance 3039.58 / 3039.58 3323.4 / 3323.4 17.07 / 17.07 General: Alert, Oriented x3, Cooperative, Lethargic HEENT: Atraumatic, PERRLA, EOMI, Normocephalic Oral: Dry Mucosa Neck: Supple, No JVD, Negative Carotid Bruits Lungs: Clear to auscultation, Normal air movement, No rhonchi, No wheeze Cardiovascular: Regular rate, Regular Rhythm, Normal S1, Normal S2, No murmurs Abdomen: Bowel Sounds Present, Soft, Non Tender, Non-Distended, No Hepato-splenomegaly Extremities: No clubbing, No cyanosis, No edema, Capillary Refill Less than 3 Seconds Skin: No rashes, No breakdown Musculoskeletal: No Tenderness to Palpation of Joints or Extremities Lymphatic: No Cervical, Supraclavicular, or Inguinal Adenopathy Neurological: Cranial nerves II-XII grossly intact, Neuro grossly intact, Motor Exam 5/5 strength throughout Psych/Mental Status: Normal Affect, Appropriate, Alert and oriented to time, place, person, mood and affect Microbiology Past 72 Hours 09/25/20 05:05 Stool C. difficile DNA Amplification - Final Laboratory Results 09/23/20 06:30: Diff Path Review Reviewed 09/24/20 04:53: Diff Path Review Reviewed 09/24/20 08:56: Troponin I 0.024 09/24/20 11:07: Troponin I 0.020 09/24/20 12:51: POC Glucose 172 H 09/24/20 15:03: Troponin I 0.021 09/24/20 18:18: POC Glucose 194 H 09/25/20 00:01: POC Glucose 194 H 09/25/20 05:38: POC Glucose 181 H 09/25/20 06:40: Sodium 135 L, Potassium 3.9, Chloride 102, Carbon Dioxide 26.0, Anion Gap 7, BUN 64 H, Creatinine 2.40 H, Estim Creat Clear Calc 25.71, Est GFR (MDRD) Af Amer 34 L, Est GFR (MDRD) Non-Af 28 L, BUN/Creatinine Ratio 26.7 H, Glucose 200 H, Calcium 8.0 L, Triglycerides 108 09/25/20 06:40: WBC 28.0 H, RBC 3.39 L, Hgb 9.2 L, Hct 29.3 L, MCV 86.4, MCH 27.1, MCHC 31.4 L, RDW Std Deviation 46.1 H, RDW Coeff of Jeff 14.9 H, Plt Count 177, MPV 12.4 H Current Medications Acetaminophen (Acetaminophen 325 Mg Tablet) 325 - 650 mg PO Q4H PRN PRN PRN Reason: pain score 1-10/fever/headache Docusate Sodium (Docusate Sodium 100 Mg Capsule) 200 mg PO BID [facility] Last Admin: 09/24/20 21:03 Dose: Not Given Documented by: Enoxaparin Sodium (Enoxaparin 30 Mg/0.3 Ml Syringe) 30 mg SC DAILY [facility] Last Admin: 09/24/20 12:52 Dose: 30 mg Documented by: Potassium Chloride 20 meq/ (Dextrose) 1,010 mls @ 125 mls/hr IV .Q8H5M [facility] Last Admin: 09/25/20 05:43 Dose: 125 mls/hr Documented by: Pantoprazole Sodium 40 mg/ (Sodium Chloride) 110 mls @ 330 mls/hr IV Q24 [facility] Last Infusion: 09/24/20 13:12 Dose: Infused Documented by: Multivitamins 10 ml/ Chromium/Copper/Manganese/Seleni/Zn 1 ml/ Folic Acid 1 mg/ Amino Acids/Electrolytes 2,011 mls @ 84 mls/hr IV .[id number] [facility] Stop: 09/25/20 15:48 Last Admin: 09/24/20 16:14 Dose: 84 mls/hr Documented by: Insulin Human Lispro (Insulin Lispro 100 Unit/Ml Insuln.Pen) 0 unit SC Q6 [facility]; Protocol Last Admin: 09/25/20 05:42 Dose: 1 u Documented by: Metoclopramide HCl (Metoclopramide 10 Mg/2 Ml Vial) 5 mg IV Q6 [facility] Last Admin: 09/25/20 05:42 Dose: 5 mg Documented by: Metoprolol Tartrate (Metoprolol Tartrate 5 Mg/5 Ml Vial) 5 mg IV Q6 [facility] Last Admin: 09/25/20 05:42 Dose: 5 mg Documented by: Nutritional Formula (Lactose Free) (Ensure Clear 120 Ml Liquid) 120 ml PO 4X/DAY [facility] Last Admin: 09/24/20 21:02 Dose: 120 ml Documented by: Ondansetron HCl (Ondansetron 4 Mg/2 Ml Vial) 4 mg IV Q6H PRN PRN PRN Reason: NAUSEA Last Admin: 09/25/20 05:55 Dose: 4 mg Documented by: Prochlorperazine Edisylate (Prochlorperazine 10 Mg/2 Ml Vial) 5 mg IV Q6H PRN PRN PRN Reason: NAUSEA/VOMITING Last Admin: 09/24/20 05:40 Dose: 5 mg Documented by: Sodium Chloride (0.9% Nacl Peripheral Flush Adult/Peds) 5 - 15 ml IV UD PRN PRN Reason: SALINE FLUSH Last Admin: 09/24/20 18:23 Dose: 15 ml Documented by: STROKE Vital Signs/Narrative: Vital Signs Temp Pulse Resp BP Pulse Ox 09/25/20 06:00 97.7 F L 89 18 143/64 H 95 09/25/20 05:42 89 Medical Necessity - Tobacco Use Smoking Status: Former smoker Assessment/Plan All Active Problems (Last Reviewed 09/14/20 @ 10:[address] Aramis Matthew MD) Bladder tumor (Acute) Bladder cancer (Acute) Incarcerated left inguinal hernia (Acute) Leukocytosis (Acute) Gross hematuria (Acute) Abrasion of right hand, initial encounter (Acute) Contusion of unspecified front wall of thorax, initial encounter (Acute) #Invasive bladder cancer S/p laparoscopic radical cystoprostatectomy with creation of ileal conduit and repair of incarcerated left inguinal hernia on 09/14/2020 Patient has an elevated white cell count today of 18. Patient subsequently needed to have an NG tube inserted on account of intestinal obstruction. This was conservatively managed as planned surgery was canceled after he had a bowel movement. Urology on board. #small bowel obstruction NG tube is out patient now on TPN general surgery on [facility] #Leucocytosis WBC is up to 28 today. There is no clear evidence of infection. Initial blood culture showed no growth after 5 days repeat blood cultures are pending. Initial urine cultures also showed no growth and a repeat urine cultures are pending. Covid test was negative. C Diff negative. ID on board; to get CT of the abdomen for evaluation #History of non sustained ventricular tachycardia 2D echo from december 2019 showed EF of 65%, with stage 2 diastolic dysfunction and RVSP of 35mmHg on IV metoprolol follows up with cardiology at [facility] # Hypertension: controlled. Losartan on hold o/a of MERLE #Hyperlipidemia: on statin #MERLE on CKD: nephrology on board. Cr is 2.39 today. baseline Cr is ~ 1.6 Hypernatremia: resolved. Nutrition: on TPN. 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 DVT prophylaxis: on lovenox 30mg bid Inpatient E&M: [id number] [facility] L[facility]
--- NOTE | 2020-09-25 07:42 | PN_ITS ---
Progress Note 80-year-old male status post radical cystoprostatectomy, NG tube is out ileus resolving however his white blood count is now spiking up to 28,000 at this point I do not see a source for the infection urine is prior the most likely source organ to start him on Cipro and less infectious disease thinks otherwise. His abdomen is nice and soft and benign possible deep abscess may be that the possibility so we could consider doing a CAT scan again to make sure he does not have an abscess. He is on clear liquid diet but tolerating it poorly continues with TPN. On exam he still slightly nauseous his abdomen soft and benign is passing gas has bowel movements last night he threw up is unsure but it was a clear vomit so no signs of obstruction I think his ileus is probably was elated to his white blood count and sodas general surgery which is probably correct. Assessment plan 80-year-old male with cystoprostatectomy complicated by a prol onged paralytic ileus appears to be resolving but now his new issue is a new elevated white blood count cultures are pending again to start him on Cipro for possible UTI as the most common infection after this procedure but urine cultures are still pending we will see what that shows. Await input from ID by thing given with the white count being so high can start him on Cipro at least weekly change it to another antibiotic per IDs recommendation would be curious to see what the urine culture grows out if it does grow anything out but most likely has bacteria. Also we could consider a CAT scan of his abdomen is fairly benign but we could look for a CAT scan for deep abscess. STROKE Vital Signs/Narrative: Vital Signs Temp Pulse Resp BP Pulse Ox 09/25/20 06:00 97.7 F L 89 18 143/64 H 95 09/25/20 05:42 89
--- NOTE | 2020-09-25 08:27 | NURSING ---
Urostomy appliance intact. was changed on 09/24/20. Dania RN had removed riccardo as ordered. steri strips are in place. pt still having some nausea at times. will continue to follow patient. pt will either go home with home health care or to a NH for a short time at discharge. pt still weak.
[2020-09-25] MEDS: proCHLORPERazine 10 MG/2 ML Vial 5 MG IV (08:31)
[2020-09-25] MEDS: Enoxaparin 30 MG/0.3 ML Syringe SC (08:39)
[2020-09-25] MEDS: Ciprofloxacin 400 MG/200 ML BAG 100 MG IV (09:43)
--- NOTE | 2020-09-25 09:53 | CT_ITS ---
STUDY: CT ABDOMEN AND PELVIS WITHOUT CONTRAST REASON FOR EXAM: Male, 80 years old. SUSPECTED ABSCESS? BLADDER CANCER WITH CYSTOPROSTATECTOMY AND ILEAL CONDUIT RADIATION DOSAGE (If Supplied By Facility): CTDIvol = ( 26.00 ) mGy, DLP = ( 1455.14 ) mGycm TECHNIQUE: Transaxial images were obtained from the dome of the diaphragm to the symphysis pubis without oral contrast, and without intravenous contrast. Sagittal and coronal images were reconstructed. Individualized dose optimization techniques were used for this CT. COMPARISON: Comparison is made with prior study dated 09/20/2020. FINDINGS: Stable minimal increased linear markings at the lung bases suggestive of a linear atelectasis and/or scarring. The visualized portions of the heart are within normal limits. Normal liver. Normal gallbladder and extrahepatic biliary system. Normal spleen. Normal pancreas. Normal bilateral adrenal glands. Normal right kidney. The double-J stent catheter is once again seen in the right collecting system with the distal tip in the ileal loop and exiting into the ileoconduit along the anterior abdominal wall. Stable marked degree of left hydronephrosis. Once again, the left ureteral stent has migrated with the proximal pigtail in the distal aorta and the remainder of the distal pigtail within the ileal conduit. There is a small hiatal hernia. There is gastric distention of the ingested oral contrast and air. There is evidence of fluid distended small bowel loops down to the ileum. Normal colon. The appendix is visualized and appears normal. Normal abdominal aorta. Normal inferior vena cava. Normal retroperitoneum. The patient is status post cystoprostatectomy. Ileal loop is seen in the right lower quadrant with the ileostomy in the lower central anterior abdominal wall. Postoperative changes are seen in the region of the pelvis. There is no evidence of a abscess collection. There is a small umbilical hernia containing fat. There are degenerative changes of the visualized lumbar spine. CT/Abdomen/Pel W ORAL Cont Only IMPRESSION: Essentially stable examination. No evidence of abscess. Distention of the stomach and the small bowel loops down to the distal jejunum/ileum. Electronically Signed: Jesus Carver, at 12:28 EST , Service support ,
--- NOTE | 2020-09-25 09:56 | PCM.PN.REN ---
Patient Problems: Active and Suspected Problems (Last Reviewed 09/14/20 @ 10:[address] Aramis Matthew MD) Bladder cancer (Acute) Incarcerated left inguinal hernia (Acute) Leukocytosis (Acute) Subjective: no cp/sob/abd pain - Physical Exam Vitals/I&O's: Vital Signs Temp Pulse Resp BP Pulse Ox 97.7 F L 89 18 143/64 H 95 09/25/20 06:00 09/25/20 06:00 09/25/20 06:00 09/25/20 06:00 09/25/20 06:00 Oxygen Flow Rate (L/min) 2 Oxygen Delivery Method Room Air Weight: 109.5 kg Body Mass Index (BMI) 33.5 Intake and Output for Last 24 Hours 09/23/20 09/24/20 09/25/20 23:59 23:59 23:59 Intake Total 6014.58 / 6014.58 5223.4 / 5223.4 1710.41 / 1710.41 Output Total 2975 / 2975 1900 / 1900 1125 / 1125 Balance 3039.58 / 3039.58 3323.4 / 3323.4 585.41 / 585.41 General: Alert, Cooperative HEENT: Atraumatic, Normocephalic Lungs: Clear to auscultation, Normal air movement Cardiovascular: Normal S1, Normal S2 Abdomen: Bowel Sounds Present, Soft, Obese Microbiology Past 72 Hours 09/25/20 05:05 Stool C. difficile DNA Amplification - Final Laboratory Results 09/23/20 06:30: Diff Path Review Reviewed 09/24/20 04:53: Diff Path Review Reviewed 09/24/20 11:07: Troponin I 0.020 09/24/20 12:51: POC Glucose 172 H 09/24/20 15:03: Troponin I 0.021 09/24/20 18:18: POC Glucose 194 H 09/25/20 00:01: POC Glucose 194 H 09/25/20 05:38: POC Glucose 181 H 09/25/20 06:40: Sodium 135 L, Potassium 3.9, Chloride 102, Carbon Dioxide 26.0, Anion Gap 7, BUN 64 H, Creatinine 2.40 H, Estim Creat Clear Calc 25.71, Est GFR (MDRD) Af Amer 34 L, Est GFR (MDRD) Non-Af 28 L, BUN/Creatinine Ratio 26.7 H, Glucose 200 H, Calcium 8.0 L, Triglycerides 108 09/25/20 06:40: WBC 28.0 H, RBC 3.39 L, Hgb 9.2 L, Hct 29.3 L, MCV 86.4, MCH 27.1, MCHC 31.4 L, RDW Std Deviation 46.1 H, RDW Coeff of Jeff 14.9 H, Plt Count 177, MPV 12.4 H Current Medications Acetaminophen (Acetaminophen 325 Mg Tablet) 325 - 650 mg PO Q4H PRN PRN PRN Reason: pain score 1-10/fever/headache Docusate Sodium (Docusate Sodium 100 Mg Capsule) 200 mg PO BID [facility] Last Admin: 09/25/20 08:34 Dose: Not Given Documented by: Enoxaparin Sodium (Enoxaparin 30 Mg/0.3 Ml Syringe) 30 mg SC DAILY [facility] Last Admin: 09/25/20 08:39 Dose: 30 mg Documented by: Potassium Chloride 20 meq/ (Dextrose) 1,010 mls @ 125 mls/hr IV .Q8H5M [facility] Last Infusion: 09/25/20 09:43 Dose: 0 mls/hr Documented by: Pantoprazole Sodium 40 mg/ (Sodium Chloride) 110 mls @ 330 mls/hr IV Q24 [facility] Last Infusion: 09/25/20 08:56 Dose: Infused Documented by: Multivitamins 10 ml/ Chromium/Copper/Manganese/Seleni/Zn 1 ml/ Folic Acid 1 mg/ Amino Acids/Electrolytes 2,011 mls @ 84 mls/hr IV .[id number] [facility] Stop: 09/25/20 15:48 Last Admin: 09/24/20 16:14 Dose: 84 mls/hr Documented by: Ciprofloxacin (Cipro) 400 mg in 200 mls @ 100 mls/hr IV Q24 [facility] Last Admin: 09/25/20 09:43 Dose: 100 mls/hr Documented by: Insulin Human Lispro (Insulin Lispro 100 Unit/Ml Insuln.Pen) 0 unit SC Q6 [facility]; Protocol Last Admin: 09/25/20 05:42 Dose: 1 u Documented by: Iopamidol (Contrast Allergy Safety Check) 0 ml IV X1 [facility] Metoclopramide HCl (Metoclopramide 10 Mg/2 Ml Vial) 5 mg IV Q6 [facility] Last Admin: 09/25/20 05:42 Dose: 5 mg Documented by: Metoprolol Tartrate (Metoprolol Tartrate 5 Mg/5 Ml Vial) 5 mg IV Q6 [facility] Last Admin: 09/25/20 05:42 Dose: 5 mg Documented by: Ondansetron HCl (Ondansetron 4 Mg/2 Ml Vial) 4 mg IV Q6H PRN PRN PRN Reason: NAUSEA Last Admin: 09/25/20 05:55 Dose: 4 mg Documented by: Prochlorperazine Edisylate (Prochlorperazine 10 Mg/2 Ml Vial) 5 mg IV Q6H PRN PRN PRN Reason: NAUSEA/VOMITING Last Admin: 09/25/20 08:31 Dose: 5 mg Documented by: Sodium Chloride (0.9% Nacl Peripheral Flush Adult/Peds) 5 - 15 ml IV UD PRN PRN Reason: SALINE FLUSH Last Admin: 09/24/20 18:23 Dose: 15 ml Documented by: Medical Necessity - Tobacco Use Smoking Status: Former smoker Assessment/Plan All Active Problems (Last Reviewed 09/14/20 @ 10:[address] Aramis Matthew MD) Bladder tumor (Acute) Bladder cancer (Acute) Incarcerated left inguinal hernia (Acute) Leukocytosis (Acute) Gross hematuria (Acute) Abrasion of right hand, initial encounter (Acute) Contusion of unspecified front wall of thorax, initial encounter (Acute) MERLE prerenal/ATN with persistent hypotension CKD baseline creatinine 1.8-2.4 invasive bladder cancer s/p laparoscopic converted to open radical cystoprostatectomy. Bilateral pelvic lymph node dissection and formation of a ileal conduit. s/p right inguinal hernia repair with mesh History of hypertension Scr 2.40 back to baseline Hold losartan On BB iv bp ok monitor avoid nephrotoxins d/w patient
--- NOTE | 2020-09-25 11:26 | PN.ID_ITS ---
Patient Problems: Active and Suspected Problems (Last Reviewed 09/14/20 @ 10:[address] Aramis Matthew MD) Bladder cancer (Acute) Incarcerated left inguinal hernia (Acute) Leukocytosis (Acute) Subjective: Feeling about the same, having some diarrhea, no abd pain, no fever. Some fatigue. - Physical Exam Vitals/I&O's: Vital Signs Temp Pulse Resp BP Pulse Ox 97.7 F L 77 18 143/64 H 95 09/25/20 06:00 09/25/20 08:03 09/25/20 06:00 09/25/20 06:00 09/25/20 06:00 Oxygen Flow Rate (L/min) 2 Oxygen Delivery Method Room Air Weight: 109.5 kg Body Mass Index (BMI) 33.5 Intake and Output for Last 24 Hours 09/23/20 09/24/20 09/25/20 23:59 23:59 23:59 Intake Total 6014.58 / 6014.58 5223.4 / 5223.4 1710.41 / 1710.41 Output Total 2975 / 2975 1900 / 1900 1125 / 1125 Balance 3039.58 / 3039.58 3323.4 / 3323.4 585.41 / 585.41 General: Alert, Cooperative, No apparent distress Lungs: Clear to auscultation, Normal air movement Cardiovascular: Regular rate, Regular Rhythm Abdomen: Soft, Non Tender, Non-Distended Skin: No rashes Microbiology Past 72 Hours 09/25/20 05:05 Stool C. difficile DNA Amplification - Final Laboratory Results 09/23/20 06:30: Diff Path Review Reviewed 09/24/20 04:53: Diff Path Review Reviewed 09/24/20 11:07: Troponin I 0.020 09/24/20 12:51: POC Glucose 172 H 09/24/20 15:03: Troponin I 0.021 09/24/20 18:18: POC Glucose 194 H 09/25/20 00:01: POC Glucose 194 H 09/25/20 05:38: POC Glucose 181 H 09/25/20 06:40: Sodium 135 L, Potassium 3.9, Chloride 102, Carbon Dioxide 26.0, Anion Gap 7, BUN 64 H, Creatinine 2.40 H, Estim Creat Clear Calc 25.71, Est GFR (MDRD) Af Amer 34 L, Est GFR (MDRD) Non-Af 28 L, BUN/Creatinine Ratio 26.7 H, Glucose 200 H, Calcium 8.0 L, Triglycerides 108 09/25/20 06:40: WBC 28.0 H, RBC 3.39 L, Hgb 9.2 L, Hct 29.3 L, MCV 86.4, MCH 27.1, MCHC 31.4 L, RDW Std Deviation 46.1 H, RDW Coeff of Jeff 14.9 H, Plt Count 177, MPV 12.4 H Current Medications Acetaminophen (Acetaminophen 325 Mg Tablet) 325 - 650 mg PO Q4H PRN PRN PRN Reason: pain score 1-10/fever/headache Docusate Sodium (Docusate Sodium 100 Mg Capsule) 200 mg PO BID [facility] Last Admin: 09/25/20 08:34 Dose: Not Given Documented by: Enoxaparin Sodium (Enoxaparin 30 Mg/0.3 Ml Syringe) 30 mg SC DAILY [facility] Last Admin: 09/25/20 08:39 Dose: 30 mg Documented by: Potassium Chloride 20 meq/ (Dextrose) 1,010 mls @ 125 mls/hr IV .[id number] [facility] Last Infusion: 09/25/20 09:43 Dose: 0 mls/hr Documented by: Pantoprazole Sodium 40 mg/ (Sodium Chloride) 110 mls @ 330 mls/hr IV Q24 [facility] Last Infusion: 09/25/20 08:56 Dose: Infused Documented by: Multivitamins 10 ml/ Chromium/Copper/Manganese/Seleni/Zn 1 ml/ Folic Acid 1 mg/ Amino Acids/Electrolytes 2,011 mls @ 84 mls/hr IV .[id number] [facility] Stop: 09/25/20 15:48 Last Admin: 09/24/20 16:14 Dose: 84 mls/hr Documented by: Ciprofloxacin (Cipro) 400 mg in 200 mls @ 100 mls/hr IV Q24 [facility] Last Admin: 09/25/20 09:43 Dose: 100 mls/hr Documented by: Insulin Human Lispro (Insulin Lispro 100 Unit/Ml Insuln.Pen) 0 unit SC Q6 [facility]; Protocol Last Admin: 09/25/20 05:42 Dose: 1 u Documented by: Metoclopramide HCl (Metoclopramide 10 Mg/2 Ml Vial) 5 mg IV Q6 [facility] Last Admin: 09/25/20 05:42 Dose: 5 mg Documented by: Metoprolol Tartrate (Metoprolol Tartrate 5 Mg/5 Ml Vial) 5 mg IV Q6 [facility] Last Admin: 09/25/20 05:42 Dose: 5 mg Documented by: Ondansetron HCl (Ondansetron 4 Mg/2 Ml Vial) 4 mg IV Q6H PRN PRN PRN Reason: NAUSEA Last Admin: 09/25/20 05:55 Dose: 4 mg Documented by: Prochlorperazine Edisylate (Prochlorperazine 10 Mg/2 Ml Vial) 5 mg IV Q6H PRN PRN PRN Reason: NAUSEA/VOMITING Last Admin: 09/25/20 08:31 Dose: 5 mg Documented by: Sodium Chloride (0.9% Nacl Peripheral Flush Adult/Peds) 5 - 15 ml IV UD PRN PRN Reason: SALINE FLUSH Last Admin: 09/24/20 18:23 Dose: 15 ml Documented by: Medical Necessity - Tobacco Use Smoking Status: Former smoker Route of nutrition/ use of supplements: [] Nutritional Intake: [] IV Site: [] Mcpherson Catheter: [] - Assessment/Plan Antibiotics: [] Assessment/Plan: [] Active and Suspected Problems (Last Reviewed 09/14/20 @ 10:[address] Aramis Matthew MD) Bladder cancer (Acute) Incarcerated left inguinal hernia (Acute) Leukocytosis s/p surgery 09/14 with bladder/prostate resection and ileal conduit. Wbc worse today. Cdiff neg. Started on cipro for possible uti. Will check CT abd/pelvis. Will follow, d/w Dr. Skinner
[2020-09-25 12:01] LABS: Bedside Glucose 203 mg/dL (70-110)
[2020-09-25] MEDS: 0.9% NaCl Peripheral Flush Adult/Peds IV ×4 (13:01→23:48)
--- NOTE | 2020-09-25 14:04 | NT.THERAPY_ITS ---
Nutrition Therapy Report - History Nutrition Services has been consulted to:: Manage parenteral nutrition Current diet / nutrition support order:: clear liquids; TPN- 2L 5% AA/20% dextrose to provide 1760 calories/100 g AA - Anthropometric Measurements Height:: 5 ft 11 in Weight:: 109.5 kg Body Mass Index (BMI):: 33.6 - Relevant Labs Relevant Labs:: WBC 28.0 K/mm3 (4.4-11.0) H 09/25/20 06:40 RBC 3.39 M/mm3 (4.6-6.2) L 09/25/20 06:40 Hgb 9.2 g/dL (13.0-16.5) L 09/25/20 06:40 Hct 29.3 % (40-54) L 09/25/20 06:40 MCH 26.9 pg (27.0-32.0) L 09/23/20 06:30 MCHC 31.4 g/dL (32-36) L 09/25/20 06:40 RDW Std Deviation 46.1 fl (35.1-43.9) H 09/25/20 06:40 RDW Coeff of Jeff 14.9 % (11.6-14.6) H 09/25/20 06:40 Plt Count 104 K/mm3 (150-450) L 09/18/20 06:16 MPV 12.4 fl (6.2-12.0) H 09/25/20 06:40 Immature Gran % (Auto) 1.800 % (0.0-0.9) H 09/24/20 04:53 Lymph % (Auto) 8.7 % (19-41) L 09/24/20 04:53 [place]ison % (Auto) 21.6 % (0-10) H 09/24/20 04:53 Absolute Neuts (auto) 12.3 X10^3/uL (2.0-7.7) H 09/24/20 04:53 Sodium 135 mmol/L (136-145) L 09/25/20 06:40 Potassium 3.2 mmol/L (3.5-5.1) L 09/23/20 06:30 Chloride 112 mmol/L (98-107) H 09/22/20 07:40 Carbon Dioxide 35.0 mmol/L (21.0-32.0) H 09/23/20 06:30 Anion Gap 4 (5-15) L 09/22/20 07:40 BUN 64 mg/dL (7-18) H 09/25/20 06:40 Creatinine 2.40 mg/dL (0.70-1.30) H 09/25/20 06:40 Est GFR (MDRD) Af Amer 34 mL/min (>60) L 09/25/20 06:40 Est GFR (MDRD) Non-Af 28 mL/min (>60) L 09/25/20 06:40 BUN/Creatinine Ratio 26.7 RATIO (10-20) H 09/25/20 06:40 Glucose 200 mg/dL (74-106) H 09/25/20 06:40 Calcium 8.0 mg/dL (8.5-10.1) L 09/25/20 06:40 Phosphorus 2.4 mg/dL (2.5-4.9) L 09/23/20 06:30 Total Bilirubin 1.10 mg/dL (0.20-1.00) H 09/23/20 06:30 AST 102 U/L (15-37) H 09/24/20 04:53 ALT 125 U/L (16-61) H 09/24/20 04:53 Total Protein 5.7 g/dL (6.4-8.2) L 09/24/20 04:53 Albumin 2.5 g/dL (3.2-5.0) L 09/24/20 04:53 Albumin/Globulin Ratio 0.8 RATIO (0.9-2.4) L 09/24/20 04:53 - Assessment Food / Nutrition-Related History:: Continues on clear liquid diet. Reports nausea and emesis. Discussed w/ RN Dania- only tolerating sips of clears. WBC increasing. CT of abdomen done- no evidence of abscess per radiologist interpretation. ID, general surgery, and nephrology following. TPN currently infusing- 2L 5% AA/20% dextrose to provide 1760 calories, 100 g protein. KCl/Dextrose continues per nephrology order. Noted diarrhea- c.diff negative. Triglycerides checked- WNL. Wt increase of 0.3 kg w/ non-pitting edema to bilat hands noted. - Nutrition Diagnosis Problem / Etiology / Signs & Symptoms (PES):: Inadequate oral intake related to GI dysfunction as evidenced by PO intake meeting less than 50% of estimated nutritional needs x 1 week. - Nutrition Intervention Nutrition Prescription:: Per refeeding guidelines, 15-25 kcal/kg/day (3148-7342) - Food / Nutrient Delivery Interventions Summary of nutrition intervention:: Consulted by provided to renew TPN, Day #5. Per refeeding guidelines, recommend to 15-25 kcal/kg/day (8933-1141). Would benefit from lipids today to provide an additional 500 calories. Discussed w/ hospitalist- KCl/dextrose d/c'd. Nutrition support ordered as / adjusted to:: 2L @84mL/hour 5% AA/20% dextrose solution w/ electrolytes/MVI/trace minerals and 250mL 20% lipid solution to provide 2260 calories, 100 g AA. No insulin/famotidine to TPN per provider order. Will continue appropriate labs for monitoring of TPN, signs/symptoms of refeeding syndrome. Continue daily wts. Recommend advance diet as tolerated to transitional; continue TPN until adequate intake/tolerance of diet is established and wean TPN as appropriate. Ensure clear w/ medpass if tolerated. - MNT Monitoring Further MNT monitoring and evaluation required?: Yes MNT Follow-up in:: 1-2 days
[2020-09-25] MEDS: Fat Emulsions 20% 250 ML IV (15:44)
[2020-09-25 19:21] LABS: Bedside Glucose 160 mg/dL (70-110)
[2020-09-26] VITALS (12 sets, daily range): BP systolic 113–124; BP diastolic 59–66; PULSE 71–88; RESP 16–18; TEMP 36.3–36.4; O2SAT 96–98; BMI 33.9
[2020-09-26 00:05] LABS: Bedside Glucose 153 mg/dL (70-110)
[2020-09-26] MEDS: Insulin Lispro 100 UNIT/ML INSULN.PEN SC ×3 (05:47→23:41)
[2020-09-26] MEDS: 0.9% NaCl Peripheral Flush Adult/Peds IV ×2 (05:49→10:48)
[2020-09-26] MEDS: Metoprolol Tartrate 5 MG/5 ML Vial IV ×4 (05:49→23:40)
[2020-09-26] MEDS: Metoclopramide 10 MG/2 ML Vial 5 MG IV ×4 (05:49→23:41)
[2020-09-26 06:05] LABS: Bedside Glucose 157 mg/dL (70-110)
--- NOTE | 2020-09-26 07:14 | PN_ITS ---
Progress Note 80-year-old male status post cystoscopy radical prostatectomy has a prolonged postoperative course with a prolonged ileus. White count was 28,000 and work-up we have not really found a clear source except for he did have some drainage from the wound so it is possible he has a wound infection I will have the nurses pack the wound with iodoform gauze it is in the lower abdomen the riccardo were removed yesterday and after this he had drainage from the wound. On exam he actually looks the best he has in days his abdomen is nice and soft and benign he is got good bowel sounds, passing gas. No belching or burping. He has had bowel movements. Over the night he had no emesis or vomiting. Says he feels some hungry and he wants to try some toast this morning 80-year-old male status post radical cystoprostatectomy prolonged course probably from a prolonged ileus. We have contemplated taken back to surgery for exploration but on CAT scan we do not see any clear transition point or point where there is an obstruction we also did a small bowel Gastrografin follow- through with a Gastrografin went all the way through the small intestine to the colon he is moving bowels he is passing gas at this point we can advance his diet. We will try regular diet but I told the patient to go very very slow and nibble on food and do not eat whole meals he needs to be up and walking more he needs to ambulate more. We will continue with Cipro since I am not sure what else to do. And will do a chest x-ray make sure there is no pneumonia. Also will do a wound culture on the open incision in the lower abdomen is possible this is a source of the white blood count we will see what the culture shows. Patient continues at least this point he is improving. Hopefully will be able get him discharged soon. Continue TPN since still nutritional intake is very poor. From a coverage standpoint I will be going out of town in about 10 days hopefully he will be discharged in the hospital before I leave but if that not the case I will need to have coverage probably from general surgery or from hospitalist when I am out of town. STROKE Vital Signs/Narrative: Vital Signs Pulse 09/26/20 05:49 78 09/26/20 04:01 76
[2020-09-26 07:27] LABS: Anion Gap 7 (5-15); BUN 61 mg/dL (7-18); BUN/Creat Ratio 28.5 RATIO (10-20); Calcium,Total 7.6 mg/dL (8.5-10.1); Chloride 105 mmol/L (98-107); Creatinine, Serum 2.14 mg/dL (0.70-1.30); EST Glomerular Filtration Rate 32 mL/min (>60); Est Glom Filt Rate - Afr Amer 38 mL/min (>60); Estimated Creatinine Clearance 28.83 ml/min; Glucose 143 mg/dL (74-106); Magnesium 1.7 mg/dL (1.6-2.6); Phosphorus 2.9 mg/dL (2.5-4.9); Sodium Level 139 mmol/L (136-145)
[2020-09-26 07:31] LABS: Absolute Lymphocyte Count 2.53 X10^3/uL (0.83-4.51); Absolute Neutrophil Count 19.9 X10^3/uL (2.0-7.7); Basophil# 0.06 X10^3/uL; Basophil% 0.2 % (0-1); Eosinophil# 0.09 X10^3/uL; Eosinophils% 0.3 % (0-5); Hematocrit 26.8 % (40-54); Hemoglobin 8.6 g/dL (13.0-16.5); Lymphocyte # 2.53 X10^3/ul (4.0); Lymphocyte % 8.4 % (19-41); Mean Corp Hgb Conc 32.1 g/dL (32-36); Mean Corpuscular Hgb 27.5 pg (27.0-32.0); Mean Corpuscular Volume 85.6 fL (80-94); Mean Platelet Vol. 12.2 fl (6.2-12.0); Monocyte# 6.26 X10^3/uL; Monocyte% 20.7 % (0-10); NRBC Flagged by Analyzer 0 % (0-5); Neutrophil # 19.93 X10^3/uL (2.7-7.7); Neutrophil % 65.9 % (47-70); POSITIVE COUNT YES; POSITIVE DIFFERENTIAL YES; Platelet Count 117 K/mm3 (150-450); RBC Distribution Width CV 15.3 % (11.6-14.6); RBC Distribution Width SD 45.8 fl (35.1-43.9); Red Blood Count 3.13 M/mm3 (4.6-6.2)
[2020-09-26 07:37] LABS: Differential Indicated SCAN CRITERIA MET; White Blood Count 30.2 K/mm3 (4.4-11.0)
--- NOTE | 2020-09-26 07:47 | PCM.PN.HOSP ---
Patient Problems: Active and Suspected Problems (Last Reviewed 09/14/20 @ 10:[address] Aramis Matthew MD) Bladder cancer (Acute) Incarcerated left inguinal hernia (Acute) Leukocytosis (Acute) Subjective: Patient seen and examined. He had no acute events overnight and has no complaints. He has remained hemodynamically stable. However his white cell count is up to 30.2 today. Chest x-ray and wound culture from abdominal site been ordered. Patient has been started on oral diet by general surgery and urology. Vitals/I&O's: Vital Signs Temp Pulse Resp BP Pulse Ox 97.3 F L 78 18 124/66 H 96 09/26/20 03:02 09/26/20 05:49 09/26/20 03:02 09/26/20 03:02 09/26/20 03:02 Oxygen Flow Rate (L/min) 2 Oxygen Delivery Method Room Air Weight: 243 lb 2.718 oz Body Mass Index (BMI) 33.6 Intake and Output for Last 24 Hours 09/24/20 09/25/20 09/26/20 23:59 23:59 23:59 Intake Total 5223.4 / 5223.4 4174.01 / 4174.01 250 / 250 Output Total 1900 / 1900 2875 / 2875 750 / 750 Balance 3323.4 / 3323.4 1299.01 / 1299.01 -500 / -500 General: Alert, Oriented x3, Cooperative, Lethargic HEENT: Atraumatic, PERRLA, EOMI, Normocephalic Oral: Dry Mucosa Neck: Supple, No JVD, Negative Carotid Bruits Lungs: Clear to auscultation, Normal air movement, No rhonchi, No wheeze Cardiovascular: Regular rate, Regular Rhythm, Normal S1, Normal S2, No murmurs Abdomen: Bowel Sounds Present, Soft, Non Tender, Non-Distended, No Hepato-splenomegaly; laparotomy stitches removed, ileostomy bag in place Extremities: No clubbing, No cyanosis, No edema, Capillary Refill Less than 3 Seconds Skin: No rashes, No breakdown Musculoskeletal: No Tenderness to Palpation of Joints or Extremities Lymphatic: No Cervical, Supraclavicular, or Inguinal Adenopathy Neurological: Cranial nerves II-XII grossly intact, Neuro grossly intact, Motor Exam 5/5 strength throughout Psych/Mental Status: Normal Affect, Appropriate, Alert and oriented to time, place, person, mood and affect Microbiology Past 72 Hours 09/24/20 08:04 Urine Catheter - Catheter Urine Culture - Final Staphylococcus haemolyticus 09/25/20 05:05 Stool C. difficile DNA Amplification - Final Laboratory Results 09/25/20 11:45: POC Glucose 203 H 09/25/20 19:14: POC Glucose 160 H 09/25/20 23:44: POC Glucose 153 H 09/26/20 05:47: POC Glucose 157 H 09/26/20 06:50: Sodium 139, Potassium 4.0, Chloride 105, Carbon Dioxide 27.0, Anion Gap 7, BUN 61 H, Creatinine 2.14 H, Estim Creat Clear Calc 28.83, Est GFR (MDRD) Af Amer 38 L, Est GFR (MDRD) Non-Af 32 L, BUN/Creatinine Ratio 28.5 H, Glucose 143 H, Calcium 7.6 L, Phosphorus 2.9, Magnesium 1.7 09/26/20 07:25: WBC 30.2 H*, RBC 3.13 L, Hgb 8.6 L, Hct 26.8 L, MCV 85.6, MCH 27.5, MCHC 32.1, RDW Std Deviation 45.8 H, RDW Coeff of Jeff 15.3 H, Plt Count 117 L, MPV 12.2 H, Immature Gran % (Auto) 4.500 H, Neut % (Auto) 65.9, Lymph % (Auto) 8.4 L, [place] % (Auto) 20.7 H, Eos % (Auto) 0.3, Baso % (Auto) 0.2, Absolute Neuts (auto) 19.9 H, Absolute Lymphs (auto) 2.53, Nucleated RBC % 0 Current Medications Acetaminophen (Acetaminophen 325 Mg Tablet) 325 - 650 mg PO Q4H PRN PRN PRN Reason: pain score 1-10/fever/headache Docusate Sodium (Docusate Sodium 100 Mg Capsule) 200 mg PO BID [facility] Last Admin: 09/25/20 20:31 Dose: Not Given Documented by: Enoxaparin Sodium (Enoxaparin 30 Mg/0.3 Ml Syringe) 30 mg SC DAILY [facility] Last Admin: 09/25/20 08:39 Dose: 30 mg Documented by: Pantoprazole Sodium 40 mg/ (Sodium Chloride) 110 mls @ 330 mls/hr IV Q24 [facility] Last Infusion: 09/25/20 08:56 Dose: Infused Documented by: Ciprofloxacin (Cipro) 400 mg in 200 mls @ 100 mls/hr IV Q24 [facility] Last Infusion: 09/25/20 11:43 Dose: Infused Documented by: Multivitamins 10 ml/ Chromium/Copper/Manganese/Seleni/Zn 1 ml/ Folic Acid 1 mg/ Amino Acids/Electrolytes 2,011 mls @ 84 mls/hr IV .[id number] [facility] Stop: 09/26/20 15:48 Last Admin: 09/25/20 15:43 Dose: 84 mls/hr Documented by: Insulin Human Lispro (Insulin Lispro 100 Unit/Ml Insuln.Pen) 0 unit SC Q6 [facility]; Protocol Last Admin: 09/26/20 05:47 Dose: 1 u Documented by: Metoclopramide HCl (Metoclopramide 10 Mg/2 Ml Vial) 5 mg IV Q6 [facility] Last Admin: 09/26/20 05:49 Dose: 5 mg Documented by: Metoprolol Tartrate (Metoprolol Tartrate 5 Mg/5 Ml Vial) 5 mg IV Q6 [facility] Last Admin: 09/26/20 05:49 Dose: 5 mg Documented by: Ondansetron HCl (Ondansetron 4 Mg/2 Ml Vial) 4 mg IV Q6H PRN PRN PRN Reason: NAUSEA Last Admin: 09/25/20 05:55 Dose: 4 mg Documented by: Prochlorperazine Edisylate (Prochlorperazine 10 Mg/2 Ml Vial) 5 mg IV Q6H PRN PRN PRN Reason: NAUSEA/VOMITING Last Admin: 09/25/20 08:31 Dose: 5 mg Documented by: Sodium Chloride (0.9% Nacl Peripheral Flush Adult/Peds) 5 - 15 ml IV UD PRN PRN Reason: SALINE FLUSH Last Admin: 09/26/20 05:49 Dose: 10 ml Documented by: STROKE Vital Signs/Narrative: Vital Signs Pulse 09/26/20 05:49 78 09/26/20 04:01 76 Medical Necessity - Tobacco Use Smoking Status: Former smoker Assessment/Plan All Active Problems (Last Reviewed 09/14/20 @ 10:[address] Aramis Matthew MD) Bladder tumor (Acute) Bladder cancer (Acute) Incarcerated left inguinal hernia (Acute) Leukocytosis (Acute) Gross hematuria (Acute) Abrasion of right hand, initial encounter (Acute) Contusion of unspecified front wall of thorax, initial encounter (Acute) #Invasive bladder cancer S/p laparoscopic radical cystoprostatectomy with creation of ileal conduit and repair of incarcerated left inguinal hernia on 09/14/2020 Patient has an elevated white cell count today of 18. Patient subsequently needed to have an NG tube inserted on account of intestinal obstruction. This was conservatively managed as planned surgery was canceled after he had a bowel movement. Urology on board. #small bowel obstruction NG tube is out patient now on TPN general surgery on board. Patient started on oral diet today by general surgery and urology. WIll wean off TPN #Leucocytosis WBC is up to 30.2 today. There is no clear evidence of infection. Initial blood culture showed no growth after 5 days repeat blood cultures are pending. Initial urine cultures also showed no growth and a repeat urine cultures are pending. Covid test was negative. C Diff negative. CT of the abdomen and pelvis showed stable examination with no evidence of abscess and distention of the stomach and bowel loops down to the distal jejunum/ileum to get CXR and wound culture from surgical site today #History of non sustained ventricular tachycardia 2D echo from december 2019 showed EF of 65%, with stage 2 diastolic dysfunction and RVSP of 35mmHg on IV metoprolol follows up with cardiology at [facility] # Hypertension: controlled. Losartan on hold o/a of MERLE #Hyperlipidemia: on statin #MERLE on CKD: nephrology on board. Cr is 2.14 today. baseline Cr is ~ 1.6 Hypernatremia: resolved. Nutrition: on TPN. Dietitian on board. DVT prophylaxis: on lovenox 30mg bid Inpatient E&M: 10131 [facility] Hosp L3
--- NOTE | 2020-09-26 07:53 | PCM.PN.SRG ---
Patient Problems: Active and Suspected Problems (Last Reviewed 09/14/20 @ 10:[address] Aramis Matthew MD) Bladder cancer (Acute) Incarcerated left inguinal hernia (Acute) Leukocytosis (Acute) Subjective: The patient reports no nausea or vomiting overnight. He is passing flatus. - Physical Exam Vitals/I&O's: Vital Signs Temp Pulse Resp BP Pulse Ox 97.3 F L 78 18 124/66 H 96 09/26/20 03:02 09/26/20 05:49 09/26/20 03:02 09/26/20 03:02 09/26/20 03:02 Oxygen Flow Rate (L/min) 2 Oxygen Delivery Method Room Air Weight: 243 lb 2.718 oz Body Mass Index (BMI) 33.6 Intake and Output for Last 24 Hours 09/24/20 09/25/20 09/26/20 23:59 23:59 23:59 Intake Total 5223.4 / 5223.4 4174.01 / 4174.01 250 / 250 Output Total 1900 / 1900 2875 / 2875 750 / 750 Balance 3323.4 / 3323.4 1299.01 / 1299.01 -500 / -500 General: Alert, Oriented x3 Lungs: Normal air movement Abdomen: Soft, Non Tender, Non-Distended Microbiology Past 72 Hours 09/24/20 08:04 Urine Catheter - Catheter Urine Culture - Final Staphylococcus haemolyticus 09/25/20 05:05 Stool C. difficile DNA Amplification - Final Laboratory Results 09/25/20 11:45: POC Glucose 203 H 09/25/20 19:14: POC Glucose 160 H 09/25/20 23:44: POC Glucose 153 H 09/26/20 05:47: POC Glucose 157 H 09/26/20 06:50: Sodium 139, Potassium 4.0, Chloride 105, Carbon Dioxide 27.0, Anion Gap 7, BUN 61 H, Creatinine 2.14 H, Estim Creat Clear Calc 28.83, Est GFR (MDRD) Af Amer 38 L, Est GFR (MDRD) Non-Af 32 L, BUN/Creatinine Ratio 28.5 H, Glucose 143 H, Calcium 7.6 L, Phosphorus 2.9, Magnesium 1.7 09/26/20 07:25: WBC 30.2 H*, RBC 3.13 L, Hgb 8.6 L, Hct 26.8 L, MCV 85.6, MCH 27.5, MCHC 32.1, RDW Std Deviation 45.8 H, RDW Coeff of Jeff 15.3 H, Plt Count 117 L, MPV 12.2 H, Immature Gran % (Auto) 4.500 H, Neut % (Auto) 65.9, Lymph % (Auto) 8.4 L, [place] % (Auto) 20.7 H, Eos % (Auto) 0.3, Baso % (Auto) 0.2, Absolute Neuts (auto) 19.9 H, Absolute Lymphs (auto) 2.53, Nucleated RBC % 0 Current Medications Acetaminophen (Acetaminophen 325 Mg Tablet) 325 - 650 mg PO Q4H PRN PRN PRN Reason: pain score 1-10/fever/headache Docusate Sodium (Docusate Sodium 100 Mg Capsule) 200 mg PO BID [facility] Last Admin: 09/25/20 20:31 Dose: Not Given Documented by: Enoxaparin Sodium (Enoxaparin 30 Mg/0.3 Ml Syringe) 30 mg SC DAILY [facility] Last Admin: 09/25/20 08:39 Dose: 30 mg Documented by: Pantoprazole Sodium 40 mg/ (Sodium Chloride) 110 mls @ 330 mls/hr IV Q24 [facility] Last Infusion: 09/25/20 08:56 Dose: Infused Documented by: Ciprofloxacin (Cipro) 400 mg in 200 mls @ 100 mls/hr IV Q24 [facility] Last Infusion: 09/25/20 11:43 Dose: Infused Documented by: Multivitamins 10 ml/ Chromium/Copper/Manganese/Seleni/Zn 1 ml/ Folic Acid 1 mg/ Amino Acids/Electrolytes 2,011 mls @ 84 mls/hr IV .[id number] [facility] Stop: 09/26/20 15:48 Last Admin: 09/25/20 15:43 Dose: 84 mls/hr Documented by: Insulin Human Lispro (Insulin Lispro 100 Unit/Ml Insuln.Pen) 0 unit SC Q6 [facility]; Protocol Last Admin: 09/26/20 05:47 Dose: 1 u Documented by: Metoclopramide HCl (Metoclopramide 10 Mg/2 Ml Vial) 5 mg IV Q6 [facility] Last Admin: 09/26/20 05:49 Dose: 5 mg Documented by: Metoprolol Tartrate (Metoprolol Tartrate 5 Mg/5 Ml Vial) 5 mg IV Q6 [facility] Last Admin: 09/26/20 05:49 Dose: 5 mg Documented by: Ondansetron HCl (Ondansetron 4 Mg/2 Ml Vial) 4 mg IV Q6H PRN PRN PRN Reason: NAUSEA Last Admin: 09/25/20 05:55 Dose: 4 mg Documented by: Prochlorperazine Edisylate (Prochlorperazine 10 Mg/2 Ml Vial) 5 mg IV Q6H PRN PRN PRN Reason: NAUSEA/VOMITING Last Admin: 09/25/20 08:31 Dose: 5 mg Documented by: Sodium Chloride (0.9% Nacl Peripheral Flush Adult/Peds) 5 - 15 ml IV UD PRN PRN Reason: SALINE FLUSH Last Admin: 09/26/20 05:49 Dose: 10 ml Documented by: Medical Necessity - Tobacco Use Smoking Status: Former smoker Assessment/Plan All Active Problems (Last Reviewed 09/14/20 @ 10:[address] Aramis Matthew MD) Bladder tumor (Acute) Bladder cancer (Acute) Incarcerated left inguinal hernia (Acute) Leukocytosis (Acute) Gross hematuria (Acute) Abrasion of right hand, initial encounter (Acute) Contusion of unspecified front wall of thorax, initial encounter (Acute) 80-year-old male with postoperative ileus 1. The patient's white count has now gone up to 30 with unknown etiology. Patient's abdomen is soft and nondistended and he has not had any nausea or vomiting. He did have a CT scan yesterday which showed continued ileus with fluid in the small bowel and the stomach. There is gas throughout the colon so I do not believe the patient has a bowel obstruction. I would not wean the TPN until the patient is actually tolerating a regular diet at this may take a few more days as the infectious etiology may cause the ileus to return. Jose Manuel Mccord MD Pager: [facility] [address] [place] [address], [address] [place] [address] Office:
--- NOTE | 2020-09-26 08:20 | RAD_ITS ---
STUDY: X-RAY CHEST REASON FOR EXAM: Male, 80 years old. ELEVATED WBC TECHNIQUE: Single AP portable view of the chest. COMPARISON: Comparison is made with prior examination dated 09/12/2020. FINDINGS: EKG electrodes are seen. A right-sided PICC line catheter is in situ. The tip is at the junction of the superior vena cava and right atrium. There is elevation of the left hemidiaphragm. There is blunting of the left costophrenic angle. Minimal linear atelectasis and/or scarring at the left lung base. Normal size heart. Normal mediastinum and alvino. Normal visualized pulmonary arteries. There is atherosclerotic calcification of the aortic arch with tortuosity. Normal visualized thoracic spine. Normal visualized ribs, clavicles, and shoulders. There is no demonstrated abnormality of the visualized soft tissue structures of the upper abdomen. RAD/Chest 1 View (Portable) IMPRESSION: Elevation of the left hemidiaphragm with blunting of the left costo phrenic angle and minimal increased markings at the left lung base suggestive of linear atelectasis and/or scarring. Electronically Signed: Jesus Carver, at 9:31 EST , Service support ,
[2020-09-26 08:27] LABS: AST(SGOT) 45 U/L (15-37); Alanine Aminotransfer ALT/SGPT 106 U/L (16-61); Albumin, Serum 2.5 g/dL (3.2-5.0); Alkaline Phosphatase 74 U/L (45-117); Bilirubin, Direct 0.28 mg/dL (0.00-0.30); Globulin 2.7 g/dL (2.2-4.2); Protein, Total 5.2 g/dL (6.4-8.2)
--- NOTE | 2020-09-26 08:33 | NURSING ---
According to nursing, the ostomy appliance was changed last PM d/t leaking. WBC continues to increase. slightly over 30,000 today. there is a small dehisced area to the distal abdominal incision. LIAM Najera had obtained and sent and wound culture. states there was no purulence just serosanguineous drainage. no periwound erythema. wound now being packing with 1/4 gauze. will continue to monitor. diet increased today. pt does state he is feeling somewhat better today.
[2020-09-26] MEDS: Enoxaparin 30 MG/0.3 ML Syringe SC (10:47)
--- NOTE | 2020-09-26 10:59 | PCM.PN.REN ---
Patient Problems: Active and Suspected Problems (Last Reviewed 09/14/20 @ 10:[address] Aramis Matthew MD) Bladder cancer (Acute) Incarcerated left inguinal hernia (Acute) Leukocytosis (Acute) Subjective: no abd pain n/v no cp/sob - Physical Exam Vitals/I&O's: Vital Signs Temp Pulse Resp BP Pulse Ox 97.5 F L 75 16 118/62 96 09/26/20 08:00 09/26/20 08:00 09/26/20 08:00 09/26/20 08:00 09/26/20 08:00 Oxygen Flow Rate (L/min) 2 Oxygen Delivery Method Room Air Weight: 110.3 kg Body Mass Index (BMI) 33.6 Intake and Output for Last 24 Hours 09/24/20 09/25/20 09/26/20 23:59 23:59 23:59 Intake Total 5223.4 / 5223.4 4174.01 / 4174.01 360 / 360 Output Total 1900 / 1900 2875 / 2875 750 / 750 Balance 3323.4 / 3323.4 1299.01 / 1299.01 -390 / -390 General: Alert, Cooperative, No apparent distress HEENT: Atraumatic, Normocephalic Oral: Moist Mucosa Neck: Supple, Trachea Midline Lungs: Clear to auscultation, Normal air movement Cardiovascular: Regular rate, Normal S1, Normal S2 Abdomen: Bowel Sounds Present, Soft, Obese Extremities: No edema Microbiology Past 72 Hours 09/24/20 08:04 Urine Catheter - Catheter Urine Culture - Final Staphylococcus haemolyticus 09/25/20 05:05 Stool C. difficile DNA Amplification - Final Laboratory Results 09/25/20 11:45: POC Glucose 203 H 09/25/20 19:14: POC Glucose 160 H 09/25/20 23:44: POC Glucose 153 H 09/26/20 05:47: POC Glucose 157 H 09/26/20 06:50: Sodium 139, Potassium 4.0, Chloride 105, Carbon Dioxide 27.0, Anion Gap 7, BUN 61 H, Creatinine 2.14 H, Estim Creat Clear Calc 28.83, Est GFR (MDRD) Af Amer 38 L, Est GFR (MDRD) Non-Af 32 L, BUN/Creatinine Ratio 28.5 H, Glucose 143 H, Calcium 7.6 L, Phosphorus 2.9, Magnesium 1.7 09/26/20 07:25: WBC 30.2 H*, RBC 3.13 L, Hgb 8.6 L, Hct 26.8 L, MCV 85.6, MCH 27.5, MCHC 32.1, RDW Std Deviation 45.8 H, RDW Coeff of Jeff 15.3 H, Plt Count 117 L, MPV 12.2 H, Immature Gran % (Auto) 4.500 H, Neut % (Auto) 65.9, Lymph % (Auto) 8.4 L, [place] % (Auto) 20.7 H, Eos % (Auto) 0.3, Baso % (Auto) 0.2, Absolute Neuts (auto) 19.9 H, Absolute Lymphs (auto) 2.53, Nucleated RBC % 0, Differential Comment , Diff Path Review February09/26/20 07:25: Total Bilirubin 0.60, Direct Bilirubin 0.28, AST 45 H, ALT 106 H, Alkaline Phosphatase 74, Total Protein 5.2 L, Albumin 2.5 L, Globulin 2.7 Current Medications Acetaminophen (Acetaminophen 325 Mg Tablet) 325 - 650 mg PO Q4H PRN PRN PRN Reason: pain score 1-10/fever/headache Docusate Sodium (Docusate Sodium 100 Mg Capsule) 200 mg PO BID [facility] Last Admin: 09/26/20 10:47 Dose: Not Given Documented by: Enoxaparin Sodium (Enoxaparin 30 Mg/0.3 Ml Syringe) 30 mg SC DAILY [facility] Last Admin: 09/26/20 10:47 Dose: 30 mg Documented by: Pantoprazole Sodium 40 mg/ (Sodium Chloride) 110 mls @ 330 mls/hr IV Q24 [facility] Last Infusion: 09/26/20 10:52 Dose: Infused Documented by: Ciprofloxacin (Cipro) 400 mg in 200 mls @ 100 mls/hr IV Q24 [facility] Last Infusion: 09/25/20 11:43 Dose: Infused Documented by: Multivitamins 10 ml/ Chromium/Copper/Manganese/Seleni/Zn 1 ml/ Folic Acid 1 mg/ Amino Acids/Electrolytes 2,011 mls @ 84 mls/hr IV .[id number] [facility] Stop: 09/26/20 15:48 Last Admin: 09/25/20 15:43 Dose: 84 mls/hr Documented by: Insulin Human Lispro (Insulin Lispro 100 Unit/Ml Insuln.Pen) 0 unit SC Q6 [facility]; Protocol Last Admin: 09/26/20 05:47 Dose: 1 u Documented by: Metoclopramide HCl (Metoclopramide 10 Mg/2 Ml Vial) 5 mg IV Q6 [facility] Last Admin: 09/26/20 05:49 Dose: 5 mg Documented by: Metoprolol Tartrate (Metoprolol Tartrate 5 Mg/5 Ml Vial) 5 mg IV Q6 [facility] Last Admin: 09/26/20 05:49 Dose: 5 mg Documented by: Ondansetron HCl (Ondansetron 4 Mg/2 Ml Vial) 4 mg IV Q6H PRN PRN PRN Reason: NAUSEA Last Admin: 09/25/20 05:55 Dose: 4 mg Documented by: Prochlorperazine Edisylate (Prochlorperazine 10 Mg/2 Ml Vial) 5 mg IV Q6H PRN PRN PRN Reason: NAUSEA/VOMITING Last Admin: 09/25/20 08:31 Dose: 5 mg Documented by: Sodium Chloride (0.9% Nacl Peripheral Flush Adult/Peds) 5 - 15 ml IV UD PRN PRN Reason: SALINE FLUSH Last Admin: 09/26/20 10:48 Dose: 10 ml Documented by: Medical Necessity - Tobacco Use Smoking Status: Former smoker Assessment/Plan All Active Problems (Last Reviewed 09/14/20 @ 10:[address] Aramis Matthew MD) Bladder tumor (Acute) Bladder cancer (Acute) Incarcerated left inguinal hernia (Acute) Leukocytosis (Acute) Gross hematuria (Acute) Abrasion of right hand, initial encounter (Acute) Contusion of unspecified front wall of thorax, initial encounter (Acute) MERLE prerenal/ATN with persistent hypotension CKD baseline creatinine 1.8-2.4 invasive bladder cancer s/p laparoscopic converted to open radical cystoprostatectomy. Bilateral pelvic lymph node dissection and formation of a ileal conduit. s/p right inguinal hernia repair with mesh History of hypertension Leukocytosis Scr 2.14 back to baseline Antibiotics per ID Hold losartan On BB iv bp ok monitor on TPN avoid nephrotoxins Chart reviewed d/w patient
[2020-09-26] MEDS: Ciprofloxacin 400 MG/200 ML BAG 100 MG IV (11:00)
[2020-09-26 13:00] LABS: Pathologist Review Reviewed
[2020-09-26 13:21] LABS: Bedside Glucose 191 mg/dL (70-110)
--- NOTE | 2020-09-26 13:30 | PCM.PN.BLA ---
Progress Note Urine Cx ++ will swicth to other antibiotic Urine Culture ORGANISM 1: Staphylococcus haemolyticus [place] Count <1000 Staphylococcus haemolyticus: REACTION Cefoxitin *NF POS Doxycycline <=0.5 S Inducable Clindamycin [place] NEG Gentamicin $ >=16 R Levofloxacin $ >=8 R Linezolid $$$$ 2 S Moxifloxicin *NF 4 I Nitrofurantoin $ 32 S Oxacillin NF >=4 R Tetracycline NF <=1 S Trimethoprim/Sulfametho $ >=320 R Vancomycin $ 2 S await ID input as well. STROKE Vital Signs/Narrative: Vital Signs Pulse 09/26/20 12:43 85
--- NOTE | 2020-09-26 13:40 | PCM.NTREPORT ---
Nutrition Therapy Report - History Nutrition Services has been consulted to:: Manage parenteral nutrition Current diet / nutrition support order:: Regular diet; TPN Day #5- 2L 5%AA/20% dextrose w/ 250mL 20% lipid solution to provide 2260 calories, 100 g protein - Anthropometric Measurements Height:: 5 ft 11 in Weight:: 110.3 kg Body Mass Index (BMI):: 33.9 - Relevant Labs Relevant Labs:: WBC 30.2 K/mm3 (4.4-11.0) H* 09/26/20 07:25 RBC 3.13 M/mm3 (4.6-6.2) L 09/26/20 07:25 Hgb 8.6 g/dL (13.0-16.5) L 09/26/20 07:25 Hct 26.8 % (40-54) L 09/26/20 07:25 MCH 26.9 pg (27.0-32.0) L 09/23/20 06:30 MCHC 31.4 g/dL (32-36) L 09/25/20 06:40 RDW Std Deviation 45.8 fl (35.1-43.9) H 09/26/20 07:25 RDW Coeff of Jeff 15.3 % (11.6-14.6) H 09/26/20 07:25 Plt Count 117 K/mm3 (150-450) L 09/26/20 07:25 MPV 12.2 fl (6.2-12.0) H 09/26/20 07:25 Immature Gran % (Auto) 4.500 % (0.0-0.9) H 09/26/20 07:25 Lymph % (Auto) 8.4 % (19-41) L 09/26/20 07:25 [place] % (Auto) 20.7 % (0-10) H 09/26/20 07:25 Absolute Neuts (auto) 19.9 X10^3/uL (2.0-7.7) H 09/26/20 07:25 Sodium 135 mmol/L (136-145) L 09/25/20 06:40 Potassium 3.2 mmol/L (3.5-5.1) L 09/23/20 06:30 Chloride 112 mmol/L (98-107) H 09/22/20 07:40 Carbon Dioxide 35.0 mmol/L (21.0-32.0) H 09/23/20 06:30 Anion Gap 4 (5-15) L 09/22/20 07:40 BUN 61 mg/dL (7-18) H 09/26/20 06:50 Creatinine 2.14 mg/dL (0.70-1.30) H 09/26/20 06:50 Est GFR (MDRD) Af Amer 38 mL/min (>60) L 09/26/20 06:50 Est GFR (MDRD) Non-Af 32 mL/min (>60) L 09/26/20 06:50 BUN/Creatinine Ratio 28.5 RATIO (10-20) H 09/26/20 06:50 Glucose 143 mg/dL (74-106) H 09/26/20 06:50 Calcium 7.6 mg/dL (8.5-10.1) L 09/26/20 06:50 Phosphorus 2.4 mg/dL (2.5-4.9) L 09/23/20 06:30 Total Bilirubin 1.10 mg/dL (0.20-1.00) H 09/23/20 06:30 AST 45 U/L (15-37) H 09/26/20 07:25 ALT 106 U/L (16-61) H 09/26/20 07:25 Total Protein 5.2 g/dL (6.4-8.2) L 09/26/20 07:25 Albumin 2.5 g/dL (3.2-5.0) L 09/26/20 07:25 Albumin/Globulin Ratio 0.8 RATIO (0.9-2.4) L 09/24/20 04:53 - Assessment Food / Nutrition-Related History:: Advanced to regular diet this AM- pt had toast, coffee and was eating tomato soup w/ crackers at time of assessment. Pt denies abd pain, nausea, or emesis. Pt states he feels well and is hungry, but understands need to take PO intake slowly. Has TPN infusing- 2L 5% AA/20% dextrose plus 250mL 20% lipids to provide 2260 calories, 100 g protein. Wt increase of 0.8kg since last review. - Nutrition Intervention Nutrition Prescription:: Day 6 of TPN. Following refeeding protocol, 30 kcal/kg/day. Will use adjusted body wt (86 kg) and CBW (110.3 kg)= 4125-4667 calories/day - Food / Nutrient Delivery Interventions Summary of nutrition intervention:: Agree w/ Rebeka Mccord and Vipul- continue TPN until adequate PO intake and tolerance of PO diet is established. Consulted by provider to renew TPN. Will reduce TPN to meet ~50% of calorie needs. Will defer oral nutrition supplements at this time and encourage very gradual PO intake. Nutrition support ordered as / adjusted to:: continue regular diet as tolerated; will continue TPN as renewed by provider- 2 L 5% AA/20% dextrose solution to provide 1760 calories, 100 g protein/day (meeting 53-68% estimated needs). No insulin/famotidine added to TPN per provider order. Nutrition education provided?: Yes - encouraged gradual PO intake, pt verbalized understanding - MNT Monitoring Further MNT monitoring and evaluation required?: Yes MNT Follow-up in:: 1-2 days - will continue to manage/order TPN as renewed daily by provider
--- NOTE | 2020-09-26 16:02 | PCM.PN.ID ---
Patient Problems: Active and Suspected Problems (Last Reviewed 09/14/20 @ 10:[address] Aramis Matthew MD) Bladder cancer (Acute) Incarcerated left inguinal hernia (Acute) Leukocytosis (Acute) Subjective: Feeling better, passing some gas, no BM. No fever, no cough, no SOB. Shaw removed. No current drainage. - Physical Exam Vitals/I&O's: Vital Signs Temp Pulse Resp BP Pulse Ox 97.4 F L 79 16 115/65 98 09/26/20 14:50 09/26/20 14:50 09/26/20 14:50 09/26/20 14:50 09/26/20 14:50 Oxygen Flow Rate (L/min) 2 Oxygen Delivery Method Room Air Weight: 110.3 kg Body Mass Index (BMI) 33.9 Intake and Output for Last 24 Hours 09/24/20 09/25/20 09/26/20 23:59 23:59 23:59 Intake Total 5223.4 / 5223.4 4174.01 / 4174.01 1060 / 1060 Output Total 1900 / 1900 2875 / 2875 1600 / 1600 Balance 3323.4 / 3323.4 1299.01 / 1299.01 -540 / -540 General: Alert, Cooperative, No apparent distress Lungs: Clear to auscultation, Normal air movement Cardiovascular: Regular rate, Regular Rhythm Abdomen: Soft, Non Tender, Distended Skin: Incision - no redness Microbiology Past 72 Hours 09/24/20 07:54 Blood Culture (Wb) - Left Hand Blood Culture - Preliminary No growth in 48 hours. 09/26/20 08:00 Wound - Abdominal Gram Stain - Final 09/24/20 08:04 Urine Catheter - Catheter Urine Culture - Final Staphylococcus haemolyticus 09/25/20 05:05 Stool C. difficile DNA Amplification - Final Laboratory Results 09/25/20 19:14: POC Glucose 160 H 09/25/20 23:44: POC Glucose 153 H 09/26/20 05:47: POC Glucose 157 H 09/26/20 06:50: Sodium 139, Potassium 4.0, Chloride 105, Carbon Dioxide 27.0, Anion Gap 7, BUN 61 H, Creatinine 2.14 H, Estim Creat Clear Calc 28.83, Est GFR (MDRD) Af Amer 38 L, Est GFR (MDRD) Non-Af 32 L, BUN/Creatinine Ratio 28.5 H, Glucose 143 H, Calcium 7.6 L, Phosphorus 2.9, Magnesium 1.7 09/26/20 07:25: WBC 30.2 H*, RBC 3.13 L, Hgb 8.6 L, Hct 26.8 L, MCV 85.6, MCH 27.5, MCHC 32.1, RDW Std Deviation 45.8 H, RDW Coeff of Jeff 15.3 H, Plt Count 117 L, MPV 12.2 H, Immature Gran % (Auto) 4.500 H, Neut % (Auto) 65.9, Lymph % (Auto) 8.4 L, [place] % (Auto) 20.7 H, Eos % (Auto) 0.3, Baso % (Auto) 0.2, Absolute Neuts (auto) 19.9 H, Absolute Lymphs (auto) 2.53, Nucleated RBC % 0, Differential Comment , Diff Path Review Reviewed 09/26/20 07:25: Total Bilirubin 0.60, Direct Bilirubin 0.28, AST 45 H, ALT 106 H, Alkaline Phosphatase 74, Total Protein 5.2 L, Albumin 2.5 L, Globulin 2.7 09/26/20 12:47: POC Glucose 191 H Current Medications Acetaminophen (Acetaminophen 325 Mg Tablet) 325 - 650 mg PO Q4H PRN PRN PRN Reason: pain score 1-10/fever/headache Calamine/Phenol (Menthol/Lanolin/Calamine/Znox 113 Gm Tube) 1 applic TOPICAL BID [facility]; Protocol Docusate Sodium (Docusate Sodium 100 Mg Capsule) 200 mg PO BID [facility] Last Admin: 09/26/20 10:47 Dose: Not Given Documented by: Enoxaparin Sodium (Enoxaparin 30 Mg/0.3 Ml Syringe) 30 mg SC DAILY [facility] Last Admin: 09/26/20 10:47 Dose: 30 mg Documented by: Pantoprazole Sodium 40 mg/ (Sodium Chloride) 110 mls @ 330 mls/hr IV Q24 [facility] Last Infusion: 09/26/20 10:52 Dose: Infused Documented by: Linezolid (Zyvox 600mg) 600 mg in 300 mls @ 200 mls/hr IV Q12 [facility] Multivitamins 10 ml/ Chromium/Copper/Manganese/Seleni/Zn 1 ml/ Folic Acid 1 mg/ Amino Acids/Electrolytes 2,011 mls @ 84 mls/hr IV .[id number] [facility] Stop: 09/27/20 15:48 Insulin Human Lispro (Insulin Lispro 100 Unit/Ml Insuln.Pen) 0 unit SC Q6 [facility]; Protocol Last Admin: 09/26/20 12:47 Dose: 1 u Documented by: Metoclopramide HCl (Metoclopramide 10 Mg/2 Ml Vial) 5 mg IV Q6 [facility] Last Admin: 09/26/20 12:43 Dose: 5 mg Documented by: Metoprolol Tartrate (Metoprolol Tartrate 5 Mg/5 Ml Vial) 5 mg IV Q6 [facility] Last Admin: 09/26/20 12:43 Dose: 5 mg Documented by: Ondansetron HCl (Ondansetron 4 Mg/2 Ml Vial) 4 mg IV Q6H PRN PRN PRN Reason: NAUSEA Last Admin: 09/25/20 05:55 Dose: 4 mg Documented by: Prochlorperazine Edisylate (Prochlorperazine 10 Mg/2 Ml Vial) 5 mg IV Q6H PRN PRN PRN Reason: NAUSEA/VOMITING Last Admin: 09/25/20 08:31 Dose: 5 mg Documented by: Sodium Chloride (0.9% Nacl Peripheral Flush Adult/Peds) 5 - 15 ml IV UD PRN PRN Reason: SALINE FLUSH Last Admin: 09/26/20 10:48 Dose: 10 ml Documented by: Medical Necessity - Tobacco Use Smoking Status: Former smoker Route of nutrition/ use of supplements: [] Nutritional Intake: [] IV Site: [] Mcpherson Catheter: [] - Assessment/Plan Antibiotics: [] Assessment/Plan: [] Active and Suspected Problems (Last Reviewed 09/14/20 @ 10:[address] Aramis Matthew MD) Bladder cancer (Acute) Incarcerated left inguinal hernia (Acute) Leukocytosis s/p surgery 09/14 with bladder/prostate resection and ileal conduit. Wbc continues to rise, but pt feeling better, ileus slowly resolving, ucx neg except for less than 1000 cfu of CoNS, CT neg for abscess, and neg cdiff. Was started on cipro yesterday, but overall no clear sign of infection. Will check PCT with Am labs. Ok to keep cipro for now but workup so far is neg. Incision without any drainage or redness this afternoon. Will follow
[2020-09-26 18:26] LABS: Bedside Glucose 130 mg/dL (70-110)
[2020-09-26] MEDS: Linezolid 600 MG 600 MG/300 ML BAG 200 MG IV (21:11)
[2020-09-26] MEDS: Menthol/Lanolin/Calamine/Znox 113 GM Tube 1 APPLIC TOPICAL (21:13)
[2020-09-26 23:51] LABS: Bedside Glucose 178 mg/dL (70-110)
[2020-09-27] VITALS (9 sets, daily range): BP systolic 120–139; BP diastolic 60–66; PULSE 70–96; RESP 16–18; TEMP 36.3–37.1; O2SAT 96–98; BMI 34.0
[2020-09-27] MEDS: Insulin Lispro 100 UNIT/ML INSULN.PEN SC ×2 (05:06→12:13)
[2020-09-27] MEDS: Metoclopramide 10 MG/2 ML Vial 5 MG IV ×3 (05:07→18:22)
[2020-09-27] MEDS: Metoprolol Tartrate 5 MG/5 ML Vial IV ×3 (05:07→18:22)
[2020-09-27 05:20] LABS: Bedside Glucose 161 mg/dL (70-110)
--- NOTE | 2020-09-27 07:14 | PCM.PN.BLA ---
Progress Note 80-year-old male status post cystoscopy radical prostatectomy postoperative course complicated by long prolonged ileus but fortunately it looks like it is finally resolving. Yesterday he had solid foods for the first time. Today encouraged him to go slowly but continue eating solid foods. He has been passing gas and having bowel movements. White count was elevated only finding on work-up was a urine culture with a resistant bacteria so I did switch him to linezolid to treat this infection given this is the only finding on work-up for infection. 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 Incision line is small little seroma in the lower part of the incision nurses can continue wet-to-dry dressing with this with iodoform packing but otherwise incision looks good. Assessment and plan 80-year-old male status post radical cystoprostatectomy with a prolonged ileus finally resolving he is on regular diet as tolerated we can consider decreasing TPN may be doing a calorie count will assist us in deciding when to stop TPN so probably should count his calories as far as intake once intake is adequate then we can stop TPN. Continue with physical therapy and rehab. Zara continue with linezolid for resistant urine organism growing. He appears to be getting better and hopefully anticipate discharge by this weekend. He would like to go home. STROKE Vital Signs/Narrative: Vital Signs Temp Pulse Resp BP Pulse Ox 09/27/20 05:07 97.4 F L 72 16 139/60 H 97
[2020-09-27 07:41] LABS: Differential Indicated MANUAL DIFF; Hematocrit 26.2 % (40-54); Hemoglobin 8.3 g/dL (13.0-16.5); Mean Corp Hgb Conc 31.7 g/dL (32-36); Mean Corpuscular Hgb 27.7 pg (27.0-32.0); Mean Corpuscular Volume 87.3 fL (80-94); Mean Platelet Vol. 12.8 fl (6.2-12.0); POSITIVE COUNT YES; POSITIVE DIFFERENTIAL YES; POSITIVE MORPHOLOGY YES; Platelet Count 100 K/mm3 (150-450); RBC Distribution Width CV 15.8 % (11.6-14.6); RBC Distribution Width SD 47.9 fl (35.1-43.9); White Blood Count 28.2 K/mm3 (4.4-11.0)
[2020-09-27 07:53] LABS: Anion Gap 6 (5-15); BUN 57 mg/dL (7-18); BUN/Creat Ratio 26.9 RATIO (10-20); Calcium,Total 7.8 mg/dL (8.5-10.1); Chloride 109 mmol/L (98-107); Creatinine, Serum 2.12 mg/dL (0.70-1.30); EST Glomerular Filtration Rate 32 mL/min (>60); Est Glom Filt Rate - Afr Amer 39 mL/min (>60); Estimated Creatinine Clearance 29.11 ml/min; Glucose 158 mg/dL (74-106); Magnesium 1.8 mg/dL (1.6-2.6); Potassium 4.1 mmol/L (3.5-5.1); Sodium Level 141 mmol/L (136-145)
--- NOTE | 2020-09-27 07:55 | PN_ITS ---
Patient Problems: Active and Suspected Problems (Last Reviewed 09/14/20 @ 10:[address] Aramis Matthew MD) Bladder cancer (Acute) Incarcerated left inguinal hernia (Acute) Leukocytosis (Acute) Subjective: Patient seen and examined. He has no complaints today. He has remained hemodynamically stable. His white cell count is down to 28.2 today. He remains on tube feed via TPN though the amount of TPN has been reduced since he is now having oral diet. Review systems otherwise negative. Vitals/I&O's: Vital Signs Temp Pulse Resp BP Pulse Ox 97.4 F L 72 16 139/60 H 97 09/27/20 05:07 09/27/20 05:07 09/27/20 05:07 09/27/20 05:07 09/27/20 05:07 Oxygen Flow Rate (L/min) 2 Oxygen Delivery Method Room Air Weight: 244 lb 4.355 oz Body Mass Index (BMI) 33.9 Intake and Output for Last 24 Hours 09/25/20 09/26/20 09/27/20 23:59 23:59 23:59 Intake Total 4174.01 / 4174.01 3521 / 3671 250 / 250 Output Total 2875 / 2875 2050 / 2800 1650 / 1650 Balance 1299.01 / 1299.01 1471 / 871 -1400 / -1400 General: Alert, Oriented x3, Cooperative HEENT: Atraumatic, PERRLA, EOMI, Normocephalic Oral: Dry Mucosa Neck: Supple, No JVD, Negative Carotid Bruits Lungs: Clear to auscultation, Normal air movement, No rhonchi, No wheeze Cardiovascular: Regular rate, Regular Rhythm, Normal S1, Normal S2, No murmurs Abdomen: Bowel Sounds Present, Soft, Non Tender, Non-Distended, No Hepato- splenomegaly; laparotomy stitches removed, ileostomy bag in place Extremities: No clubbing, No cyanosis, No edema, Capillary Refill Less than 3 Seconds Skin: No rashes, No breakdown Musculoskeletal: No Tenderness to Palpation of Joints or Extremities Lymphatic: No Cervical, Supraclavicular, or Inguinal Adenopathy Neurological: Cranial nerves II-XII grossly intact, Neuro grossly intact, Motor Exam 5/5 strength throughout Psych/Mental Status: Normal Affect, Appropriate, Alert and oriented to time, place, person, mood and affect Microbiology Past 72 Hours 09/24/20 07:54 Blood Culture (Wb) - Left Hand Blood Culture - Preliminary No growth in 48 hours. 09/26/20 08:00 Wound - Abdominal Gram Stain - Final 09/24/20 08:04 Urine Catheter - Catheter Urine Culture - Final Staphylococcus haemolyticus 09/25/20 05:05 Stool C. difficile DNA Amplification - Final Laboratory Results 09/14/20 13:55: Crossmatch See Detail 09/26/20 07:25: Differential Comment , Diff Path Review Reviewed 09/26/20 07:25: Total Bilirubin 0.60, Direct Bilirubin 0.28, AST 45 H, ALT 106 H , Alkaline Phosphatase 74, Total Protein 5.2 L, Albumin 2.5 L, Globulin 2.7 09/26/20 12:47: POC Glucose 191 H 09/26/20 18:12: POC Glucose 130 H 09/26/20 23:40: POC Glucose 178 H 09/27/20 05:05: POC Glucose 161 H 09/27/20 06:45: Sodium 141, Potassium 4.1, Chloride 109 H, Carbon Dioxide 26.0, Anion Gap 6, BUN 57 H, Creatinine 2.12 H, Estim Creat Clear Calc 29.11, Est GFR (MDRD) Af Amer 39 L, Est GFR (MDRD) Non-Af 32 L, BUN/Creatinine Ratio 26.9 H, Glucose 158 H, Calcium 7.8 L, Phosphorus 3.0, Magnesium 1.8 09/27/20 06:45: WBC 28.2 H, RBC 3.00 L, Hgb 8.3 L, Hct 26.2 L, MCV 87.3, MCH 27.7, MCHC 31.7 L, RDW Std Deviation 47.9 H, RDW Coeff of Jeff 15.8 H, Plt Count 100 L, MPV 12.8 H, Neut % (Auto) Not Reportable, Absolute Neuts (auto) Pending Current Medications Acetaminophen (Acetaminophen 325 Mg Tablet) 325 - 650 mg PO Q4H PRN PRN PRN Reason: pain score 1-10/fever/headache Calamine/Phenol (Menthol/Lanolin/Calamine/Znox 113 Gm Tube) 1 applic TOPICAL BID [facility]; Protocol Last Admin: 09/26/20 21:13 Dose: 1 applicatio Documented by: Docusate Sodium (Docusate Sodium 100 Mg Capsule) 200 mg PO BID [facility] Last Admin: 09/26/20 21:13 Dose: Not Given Documented by: Enoxaparin Sodium (Enoxaparin 30 Mg/0.3 Ml Syringe) 30 mg SC DAILY [facility] Last Admin: 09/26/20 10:47 Dose: 30 mg Documented by: Pantoprazole Sodium 40 mg/ (Sodium Chloride) 110 mls @ 330 mls/hr IV Q24 [facility] Last Infusion: 09/26/20 10:52 Dose: Infused Documented by: Linezolid (Zyvox 600mg) 600 mg in 300 mls @ 200 mls/hr IV Q12 [facility] Last Infusion: 09/26/20 22:41 Dose: Infused Documented by: Multivitamins 10 ml/ Chromium/Copper/Manganese/Seleni/Zn 1 ml/ Folic Acid 1 mg/ Amino Acids/Electrolytes 2,011 mls @ 84 mls/hr IV .[id number] [facility] Stop: 09/27/20 15:48 Last Admin: 09/26/20 16:02 Dose: 84 mls/hr Documented by: Insulin Human Lispro (Insulin Lispro 100 Unit/Ml Insuln.Pen) 0 unit SC Q6 [facility]; Protocol Last Admin: 09/27/20 05:06 Dose: 1 u Documented by: Metoclopramide HCl (Metoclopramide 10 Mg/2 Ml Vial) 5 mg IV Q6 [facility] Last Admin: 09/27/20 05:07 Dose: 5 mg Documented by: Metoprolol Tartrate (Metoprolol Tartrate 5 Mg/5 Ml Vial) 5 mg IV Q6 [facility] Last Admin: 09/27/20 05:07 Dose: 5 mg Documented by: Ondansetron HCl (Ondansetron 4 Mg/2 Ml Vial) 4 mg IV Q6H PRN PRN PRN Reason: NAUSEA Last Admin: 09/25/20 05:55 Dose: 4 mg Documented by: Prochlorperazine Edisylate (Prochlorperazine 10 Mg/2 Ml Vial) 5 mg IV Q6H PRN PRN PRN Reason: NAUSEA/VOMITING Last Admin: 09/25/20 08:31 Dose: 5 mg Documented by: Sodium Chloride (0.9% Nacl Peripheral Flush Adult/Peds) 5 - 15 ml IV UD PRN PRN Reason: SALINE FLUSH Last Admin: 09/26/20 10:48 Dose: 10 ml Documented by: STROKE Vital Signs/Narrative: Vital Signs Temp Pulse Resp BP Pulse Ox 09/27/20 05:07 97.4 F L 72 16 139/60 H 97 Medical Necessity - Tobacco Use Smoking Status: Former smoker Assessment/Plan All Active Problems (Last Reviewed 09/14/20 @ 10:[address] Aramis Matthew MD) Bladder tumor (Acute) Bladder cancer (Acute) Incarcerated left inguinal hernia (Acute) Leukocytosis (Acute) Gross hematuria (Acute) Abrasion of right hand, initial encounter (Acute) Contusion of unspecified front wall of thorax, initial encounter (Acute) #Invasive bladder cancer * S/p laparoscopic radical cystoprostatectomy with creation of ileal conduit and repair of incarcerated left inguinal hernia on 09/14/2020 * wbc today is 28.2, down from 30 yesterday * Urology on board. #small bowel obstruction * NG tube is out * patient now on TPN; amount was halved yesterday as he is now on oral diet. * TPN likely to be discontinued tomorrow * general surgery on board. * #Leucocytosis * wbc down to 28 today. There is no clear evidence of infection. * Initial blood culture showed no growth after 5 days repeat blood cultures are pending. Initial urine cultures also showed no growth and repeat urine cultures are growing Staph hemolyticus. Covid test was negative. * C Diff negative. * now on IV linezolid, per ID * * #History of non sustained ventricular tachycardia * 2D echo from december 2019 showed EF of 65%, with stage 2 diastolic dysfunction and RVSP of 35mmHg * on IV metoprolol * will start on oral metoprolol. * follows up with cardiology at [facility] * # Hypertension: controlled. Losartan on hold o/a of MERLE #Hyperlipidemia: on statin #MERLE on CKD: nephrology on board. Cr is 2.12 today. baseline Cr is ~ 1.6 Hypernatremia: resolved. Nutrition: on TPN. Dietitian on board. DVT prophylaxis: on lovenox 30mg bid Inpatient E&M: 22253 Subs Hosp L2
[2020-09-27 08:45] LABS: Eosinophil 1 % (0-5); Lymphocyte 6 % (19-41); Monocyte 27 % (0-10); Myelocyte 1 (0-0); Neutrophil-Segmented 65 % (47-70); Platelet Estimate SLT DEC (ADEQ); Total Cells Counted 100 (MANUAL DIFF)
[2020-09-27 08:46] LABS: Red Cell Morphology NORM C+C NORMAL (NORM C&C)
[2020-09-27 08:49] LABS: Absolute Neutrophil Count 18.3 X10^3/uL (2.0-7.7)
--- NOTE | 2020-09-27 09:22 | NURSING ---
wound photo: abdomen
[2020-09-27] MEDS: Enoxaparin 30 MG/0.3 ML Syringe SC (09:27)
--- NOTE | 2020-09-27 09:27 | NURSING ---
More ostomy teaching completed with patient. Removed the appliance. stoma is well budded and beefy red. Discussed options on appliances with patient. feel a 1 piece appliance may be the best option since snapping the appliance together can be difficult for pt. for now will stick with a flat 1 piece appliance. may need to change to a convex appliance at some point. peristomal skin is intact. cleansed with warm water and pat dry. pt does have a few small creased areas around the stoma. applied a 1 piece flat [place] appliance with a small amount of stoma paste. pt tolerated well. denies further questions at this time. script for supplies on chart for home health care. Home health care will need to order ostomy supplies for patient. all questions answered. pt hoping to go home sometime this weekend.
[2020-09-27] MEDS: Docusate Sodium 100 MG Capsule 200 MG PO ×2 (09:28→21:04)
[2020-09-27] MEDS: Linezolid 600 MG 600 MG/300 ML BAG 200 MG IV ×2 (09:29→21:02)
--- NOTE | 2020-09-27 11:15 | PCM.PN.REN ---
Patient Problems: Active and Suspected Problems (Last Reviewed 09/14/20 @ 10:[address] Aramis Matthew MD) Bladder cancer (Acute) Incarcerated left inguinal hernia (Acute) Leukocytosis (Acute) Subjective: no abd pain no sob no n/v Objective: nad - Physical Exam Vitals/I&O's: Vital Signs Temp Pulse Resp BP Pulse Ox 97.4 F L 72 16 139/60 H 97 09/27/20 05:07 09/27/20 05:07 09/27/20 05:07 09/27/20 05:07 09/27/20 05:07 Oxygen Flow Rate (L/min) 2 Oxygen Delivery Method Room Air Weight: 110.8 kg Body Mass Index (BMI) 33.9 Intake and Output for Last 24 Hours 09/25/20 09/26/20 09/27/20 23:59 23:59 23:59 Intake Total 4174.01 / 4174.01 3521 / 3671 250 / 250 Output Total 2875 / 2875 2050 / 2800 1650 / 1650 Balance 1299.01 / 1299.01 1471 / 871 -1400 / -1400 General: Alert, Cooperative HEENT: Atraumatic, Normocephalic Neck: Supple, Trachea Midline Lungs: Clear to auscultation, Normal air movement Cardiovascular: Regular rate, Regular Rhythm Abdomen: Non Tender, Obese Extremities: No cyanosis, No edema Microbiology Past 72 Hours 09/26/20 08:00 Wound - Abdominal Gram Stain - Final 09/26/20 08:00 Wound - Abdominal Wound Culture - Preliminary Mixed Gram Positive Organisms 09/24/20 07:54 Blood Culture (Wb) - Left Hand Blood Culture - Preliminary No growth in 48 hours. 09/24/20 08:04 Urine Catheter - Catheter Urine Culture - Final Staphylococcus haemolyticus 09/25/20 05:05 Stool C. difficile DNA Amplification - Final Laboratory Results 09/14/20 13:55: Crossmatch See Detail 09/26/20 07:25: Diff Path Review Reviewed 09/26/20 12:47: POC Glucose 191 H 09/26/20 18:12: POC Glucose 130 H 09/26/20 23:40: POC Glucose 178 H 09/27/20 05:05: POC Glucose 161 H 09/27/20 06:45: Sodium 141, Potassium 4.1, Chloride 109 H, Carbon Dioxide 26.0, Anion Gap 6, BUN 57 H, Creatinine 2.12 H, Estim Creat Clear Calc 29.11, Est GFR (MDRD) Af Amer 39 L, Est GFR (MDRD) Non-Af 32 L, BUN/Creatinine Ratio 26.9 H, Glucose 158 H, Calcium 7.8 L, Phosphorus 3.0, Magnesium 1.8 09/27/20 06:45: WBC 28.2 H, RBC 3.00 L, Hgb 8.3 L, Hct 26.2 L, MCV 87.3, MCH 27.7, MCHC 31.7 L, RDW Std Deviation 47.9 H, RDW Coeff of Jeff 15.8 H, Plt Count 100 L, MPV 12.8 H, Neut % (Auto) Not Reportable, Absolute Neuts (auto) 18.3 H, Absolute Lymphs (auto) 1.70, Total Counted 100, Neutrophils % (Manual) 65, Lymphocytes % (Manual) 6 L, Monocytes % (Manual) 27 H, Eosinophils % (Manual) 1, Myelocytes % 1 H, Diff Path Review February, Platelet Estimate SLT DEC, RBC Morphology NORM C+C Current Medications Acetaminophen (Acetaminophen 325 Mg Tablet) 325 - 650 mg PO Q4H PRN PRN PRN Reason: pain score 1-10/fever/headache Calamine/Phenol (Menthol/Lanolin/Calamine/Znox 113 Gm Tube) 1 applic TOPICAL BID [facility]; Protocol Last Admin: 09/26/20 21:13 Dose: 1 applicatio Documented by: Docusate Sodium (Docusate Sodium 100 Mg Capsule) 200 mg PO BID [facility] [place] Last Admin: 09/27/20 09:28 Dose: 200 mg Documented by: Enoxaparin Sodium (Enoxaparin 30 Mg/0.3 Ml Syringe) 30 mg SC DAILY [facility] Last Admin: 09/27/20 09:27 Dose: 30 mg Documented by: Pantoprazole Sodium 40 mg/ (Sodium Chloride) 110 mls @ 330 mls/hr IV Q24 [facility] Last Admin: 09/27/20 09:24 Dose: 330 mls/hr Documented by: Linezolid (Zyvox 600mg) 600 mg in 300 mls @ 200 mls/hr IV Q12 [facility] Last Admin: 09/27/20 09:29 Dose: 200 mls/hr Documented by: Multivitamins 10 ml/ Chromium/Copper/Manganese/Seleni/Zn 1 ml/ Folic Acid 1 mg/ Amino Acids/Electrolytes 2,011 mls @ 84 mls/hr IV .[id number] [facility] [place] Stop: 09/27/20 15:48 Last Admin: 09/26/20 16:02 Dose: 84 mls/hr Documented by: Insulin Human Lispro (Insulin Lispro 100 Unit/Ml Insuln.Pen) 0 unit SC Q6 [facility]; Protocol Last Admin: 09/27/20 05:06 Dose: 1 u Documented by: Metoclopramide HCl (Metoclopramide 10 Mg/2 Ml Vial) 5 mg IV Q6 [facility] Last Admin: 09/27/20 05:07 Dose: 5 mg Documented by: Metoprolol Tartrate (Metoprolol Tartrate 5 Mg/5 Ml Vial) 5 mg IV Q6 [facility] Last Admin: 09/27/20 05:07 Dose: 5 mg Documented by: Ondansetron HCl (Ondansetron 4 Mg/2 Ml Vial) 4 mg IV Q6H PRN PRN PRN Reason: NAUSEA Last Admin: 09/25/20 05:55 Dose: 4 mg Documented by: Prochlorperazine Edisylate (Prochlorperazine 10 Mg/2 Ml Vial) 5 mg IV Q6H PRN PRN PRN Reason: NAUSEA/VOMITING Last Admin: 09/25/20 08:31 Dose: 5 mg Documented by: Sodium Chloride (0.9% Nacl Peripheral Flush Adult/Peds) 5 - 15 ml IV UD PRN PRN Reason: SALINE FLUSH Last Admin: 09/26/20 10:48 Dose: 10 ml Documented by: Medical Necessity - Tobacco Use Smoking Status: Former smoker Assessment/Plan All Active Problems (Last Reviewed 09/14/20 @ 10:[address] Aramis Matthew MD) Bladder tumor (Acute) Bladder cancer (Acute) Incarcerated left inguinal hernia (Acute) Leukocytosis (Acute) Gross hematuria (Acute) Abrasion of right hand, initial encounter (Acute) Contusion of unspecified front wall of thorax, initial encounter (Acute) MERLE prerenal/ATN with persistent hypotension CKD baseline creatinine 1.8-2.4 invasive bladder cancer s/p laparoscopic converted to open radical cystoprostatectomy. Bilateral pelvic lymph node dissection and formation of a ileal conduit. s/p right inguinal hernia repair with mesh History of hypertension Leukocytosis Scr 2.12 back to baseline Antibiotics per ID. Hold losartan On BB iv bp ok monitor on TPN avoid nephrotoxins Chart reviewed d/w patient
[2020-09-27] MEDS: Menthol/Lanolin/Calamine/Znox 113 GM Tube 1 APPLIC TOPICAL ×2 (12:20→21:08)
[2020-09-27 12:26] LABS: Bedside Glucose 180 mg/dL (70-110)
[2020-09-27 13:54] LABS: Pathologist Review Reviewed
--- NOTE | 2020-09-27 14:00 | NT.THERAPY_ITS ---
Nutrition Therapy Report - History Nutrition Services has been consulted to:: Manage parenteral nutrition Current diet / nutrition support order:: Regular diet; TPN- 2L 5% AA/20% dextrose solution to provide 1760 calories, 100 g protein - Anthropometric Measurements Height:: 5 ft 11 in Weight:: 110.8 kg Body Mass Index (BMI):: 34.0 - Relevant Labs Relevant Labs:: WBC 28.2 K/mm3 (4.4-11.0) H 09/27/20 06:45 RBC 3.00 M/mm3 (4.6-6.2) L 09/27/20 06:45 Hgb 8.3 g/dL (13.0-16.5) L 09/27/20 06:45 Hct 26.2 % (40-54) L 09/27/20 06:45 MCH 26.9 pg (27.0-32.0) L 09/23/20 06:30 MCHC 31.7 g/dL (32-36) L 09/27/20 06:45 RDW Std Deviation 47.9 fl (35.1-43.9) H 09/27/20 06:45 RDW Coeff of Jeff 15.8 % (11.6-14.6) H 09/27/20 06:45 Plt Count 100 K/mm3 (150-450) L 09/27/20 06:45 MPV 12.8 fl (6.2-12.0) H 09/27/20 06:45 Immature Gran % (Auto) 4.500 % (0.0-0.9) H 09/26/20 07:25 Lymph % (Auto) 8.4 % (19-41) L 09/26/20 07:25 Mchenry % (Auto) 20.7 % (0-10) H 09/26/20 07:25 Absolute Neuts (auto) 18.3 X10^3/uL (2.0-7.7) H 09/27/20 06:45 Lymphocytes % (Manual) 6 % (19-41) L 09/27/20 06:45 Monocytes % (Manual) 27 % (0-10) H 09/27/20 06:45 Myelocytes % 1 (0-0) H 09/27/20 06:45 Sodium 135 mmol/L (136-145) L 09/25/20 06:40 Potassium 3.2 mmol/L (3.5-5.1) L 09/23/20 06:30 Chloride 109 mmol/L (98-107) H 09/27/20 06:45 Carbon Dioxide 35.0 mmol/L (21.0-32.0) H 09/23/20 06:30 Anion Gap 4 (5-15) L 09/22/20 07:40 BUN 57 mg/dL (7-18) H 09/27/20 06:45 Creatinine 2.12 mg/dL (0.70-1.30) H 09/27/20 06:45 Est GFR (MDRD) Af Amer 39 mL/min (>60) L 09/27/20 06:45 Est GFR (MDRD) Non-Af 32 mL/min (>60) L 09/27/20 06:45 BUN/Creatinine Ratio 26.9 RATIO (10-20) H 09/27/20 06:45 Glucose 158 mg/dL (74-106) H 09/27/20 06:45 Calcium 7.8 mg/dL (8.5-10.1) L 09/27/20 06:45 Phosphorus 2.4 mg/dL (2.5-4.9) L 09/23/20 06:30 Total Bilirubin 1.10 mg/dL (0.20-1.00) H 09/23/20 06:30 AST 45 U/L (15-37) H 09/26/20 07:25 ALT 106 U/L (16-61) H 09/26/20 07:25 Total Protein 5.2 g/dL (6.4-8.2) L 09/26/20 07:25 Albumin 2.5 g/dL (3.2-5.0) L 09/26/20 07:25 Albumin/Globulin Ratio 0.8 RATIO (0.9-2.4) L 09/24/20 04:53 - Assessment Food / Nutrition-Related History:: Continues w/ regular diet. No issues w/ tolerance reported. Having BMs. Did not have dinner last night. Had 100% of 2% milk, cheerios, and hot chocolate this AM (~250 calories). TPN infusing- 2L 5% AA/20% dextrose to provide 1760 calories, 100 g protein. Wt increase of 0.5kg since last review. - Nutrition Intervention Nutrition Prescription:: Day #7 TPN. No further preventative measures necessary to prevent refeeding per guidelines. Estimated needs 1152-9308 calories/day, 80- 110 g protein/day. - Food / Nutrient Delivery Interventions Summary of nutrition intervention:: Assisted pt w/ making lunch selections- encouraged small portions of nutrient dense foods. Selected soup, cottage cheese, crackers, milk, and custard for lunch. Discussed w/ hospitalist, danny c ontinue to wean TPN as PO intake increases, see below. Nutrition support ordered as / adjusted to:: TPN continued: 2 L 4.25% AA/10% dextrose solution to provide 1020 calories, 84 g protein/day. No insulin or famotidine per provider order. Continue regular diet as tolerated, continue daily wts. Nutrition education provided?: Yes - MNT Monitoring Further MNT monitoring and evaluation required?: Yes - TPN management as renewed by provider;close monitoring of calorie intake MNT Follow-up in:: 1-2 days
[2020-09-27 18:31] LABS: Bedside Glucose 111 mg/dL (70-110)
[2020-09-28] VITALS (13 sets, daily range): BP systolic 117–135; BP diastolic 56–76; PULSE 68–90; RESP 16–18; TEMP 36.6–37.1; O2SAT 95–98; BMI 34.0
[2020-09-28] MEDS: Metoprolol Tartrate 5 MG/5 ML Vial IV ×2 (00:06→05:23)
[2020-09-28] MEDS: Metoclopramide 10 MG/2 ML Vial 5 MG IV ×4 (00:06→18:09)
[2020-09-28 00:15] LABS: Bedside Glucose 141 mg/dL (70-110)
[2020-09-28 05:41] LABS: Bedside Glucose 118 mg/dL (70-110)
[2020-09-28 07:37] LABS: Hemoglobin 8.3 g/dL (13.0-16.5); Mean Corp Hgb Conc 30.7 g/dL (32-36); Mean Corpuscular Hgb 26.8 pg (27.0-32.0); Mean Corpuscular Volume 87.1 fL (80-94); Mean Platelet Vol. 12.5 fl (6.2-12.0); POSITIVE COUNT YES; POSITIVE DIFFERENTIAL YES; POSITIVE MORPHOLOGY YES; Platelet Count 102 K/mm3 (150-450); RBC Distribution Width CV 16.2 % (11.6-14.6); RBC Distribution Width SD 49.4 fl (35.1-43.9)
[2020-09-28 07:41] LABS: Differential Indicated MANUAL DIFF; White Blood Count 30.4 K/mm3 (4.4-11.0)
--- NOTE | 2020-09-28 07:43 | PN_ITS ---
Patient Problems: Active and Suspected Problems (Last Reviewed 09/14/20 @ 10:[address] Aramis Matthew MD) Bladder cancer (Acute) Incarcerated left inguinal hernia (Acute) Leukocytosis (Acute) Subjective: Patient seen and examined. He has no complaints overnight. His oral intake is improving. Review of systems is otherwise negative. WBC today is 30.4. Hb is 8.3 today. Vitals/I&O's: Vital Signs Temp Pulse Resp BP Pulse Ox 97.8 F 68 16 131/63 H 95 09/28/20 03:40 09/28/20 05:23 09/28/20 03:40 09/28/20 05:23 09/28/20 03:40 Oxygen Flow Rate (L/min) 2 Oxygen Delivery Method Room Air Weight: 244 lb 0.827 oz Body Mass Index (BMI) 34.0 Intake and Output for Last 24 Hours 09/26/20 09/27/20 09/28/20 23:59 23:59 23:59 Intake Total 3521 / 3671 3921 / 4071 150 / 150 Output Total 2050 / 2800 2600 / 3600 1250 / 1250 Balance 1471 / 871 1321 / 471 -1100 / -1100 General: Alert, Oriented x3, Cooperative HEENT: Atraumatic, PERRLA, EOMI, Normocephalic Oral: Dry Mucosa Neck: Supple, No JVD, Negative Carotid Bruits Lungs: Clear to auscultation, Normal air movement, No rhonchi, No wheeze Cardiovascular: Regular rate, Regular Rhythm, Normal S1, Normal S2, No murmurs Abdomen: Bowel Sounds Present, Soft, Non Tender, Non-Distended, No Hepato- splenomegaly; laparotomy stitches removed, ileostomy bag in place Extremities: No clubbing, No cyanosis, No edema, Capillary Refill Less than 3 Seconds Skin: No rashes, No breakdown Musculoskeletal: No Tenderness to Palpation of Joints or Extremities Lymphatic: No Cervical, Supraclavicular, or Inguinal Adenopathy Neurological: Cranial nerves II-XII grossly intact, Neuro grossly intact, Motor Exam 5/5 strength throughout Psych/Mental Status: Normal Affect, Appropriate, Alert and oriented to time, place, person, mood and affect Microbiology Past 72 Hours 09/26/20 08:00 Wound - Abdominal Gram Stain - Final 09/26/20 08:00 Wound - Abdominal Wound Culture - Preliminary Mixed Gram Positive Organisms 09/24/20 07:54 Blood Culture (Wb) - Left Hand Blood Culture - Preliminary No growth in 48 hours. 09/24/20 08:04 Urine Catheter - Catheter Urine Culture - Final Staphylococcus haemolyticus 09/25/20 05:05 Stool C. difficile DNA Amplification - Final Laboratory Results 09/27/20 06:45: Sodium 141, Potassium 4.1, Chloride 109 H, Carbon Dioxide 26.0, Anion Gap 6, BUN 57 H, Creatinine 2.12 H, Estim Creat Clear Calc 29.11, Est GFR (MDRD) Af Amer 39 L, Est GFR (MDRD) Non-Af 32 L, BUN/Creatinine Ratio 26.9 H, Glucose 158 H, Calcium 7.8 L, Phosphorus 3.0, Magnesium 1.8 09/27/20 06:45: Absolute Neuts (auto) 18.3 H, Absolute Lymphs (auto) 1.70, Total Counted 100, Neutrophils % (Manual) 65, Lymphocytes % (Manual) 6 L, Monocytes % (Manual) 27 H, Eosinophils % (Manual) 1, Myelocytes % 1 H, Diff Path Review Reviewed, Platelet Estimate SLT DEC, RBC Morphology NORM C+C 09/27/20 12:11: POC Glucose 180 H 09/27/20 18:21: POC Glucose 111 H 09/28/20 00:04: POC Glucose 141 H 09/28/20 05:29: POC Glucose 118 H 09/28/20 07:10: Sodium Pending, Potassium Pending, Chloride Pending, Carbon Dioxide Pending, Anion Gap Pending, BUN Pending, Creatinine Pending, Est GFR (MDRD) Af Amer Pending, Est GFR (MDRD) Non-Af Pending, BUN/Creatinine Ratio Pending, Glucose Pending, Calcium Pending, Phosphorus Pending, Magnesium Pending 09/28/20 07:10: WBC 30.4 H*, RBC 3.10 L, Hgb 8.3 L, Hct 27.0 L, MCV 87.1, MCH 26.8 L, MCHC 30.7 L, RDW Std Deviation 49.4 H, RDW Coeff of Jeff 16.2 H, Plt Count 102 L, MPV 12.5 H, Neut % (Auto) Not Reportable, Absolute Neuts (auto) Pending Current Medications Acetaminophen (Acetaminophen 325 Mg Tablet) 325 - 650 mg PO Q4H PRN PRN PRN Reason: pain score 1-10/fever/headache Calamine/Phenol (Menthol/Lanolin/Calamine/Znox 113 Gm Tube) 1 applic TOPICAL BID [facility]; Protocol Last Admin: 09/27/20 21:08 Dose: 1 applicatio Documented by: Docusate Sodium (Docusate Sodium 100 Mg Capsule) 200 mg PO BID [facility] Last Admin: 09/27/20 21:04 Dose: 200 mg Documented by: Enoxaparin Sodium (Enoxaparin 30 Mg/0.3 Ml Syringe) 30 mg SC DAILY [facility] Last Admin: 09/27/20 09:27 Dose: 30 mg Documented by: Pantoprazole Sodium 40 mg/ (Sodium Chloride) 110 mls @ 330 mls/hr IV Q24 [facility] Last Infusion: 09/27/20 09:45 Dose: Infused Documented by: Linezolid (Zyvox 600mg) 600 mg in 300 mls @ 200 mls/hr IV Q12 [facility] Last Infusion: 09/27/20 22:32 Dose: Infused Documented by: Multivitamins 10 ml/ Chromium/Copper/Manganese/Seleni/Zn 1 ml/ Folic Acid 1 mg/ Amino Acids/Electrolytes/Dextrose 2,011 mls @ 84 mls/hr IV .[id number] [facility] Stop: 09/28/20 15:48 Last Admin: 09/27/20 16:36 Dose: 84 mls/hr Documented by: Insulin Human Lispro (Insulin Lispro 100 Unit/Ml Insuln.Pen) 0 unit SC Q6 [facility]; Protocol Last Admin: 09/28/20 05:42 Dose: Not Given Documented by: Metoclopramide HCl (Metoclopramide 10 Mg/2 Ml Vial) 5 mg IV Q6 [facility] Last Admin: 09/28/20 05:30 Dose: 5 mg Documented by: Metoprolol Tartrate (Metoprolol Tartrate 5 Mg/5 Ml Vial) 5 mg IV Q6 [facility] Last Admin: 09/28/20 05:23 Dose: 5 mg Documented by: Ondansetron HCl (Ondansetron 4 Mg/2 Ml Vial) 4 mg IV Q6H PRN PRN PRN Reason: NAUSEA Last Admin: 09/25/20 05:55 Dose: 4 mg Documented by: Prochlorperazine Edisylate (Prochlorperazine 10 Mg/2 Ml Vial) 5 mg IV Q6H PRN PRN PRN Reason: NAUSEA/VOMITING Last Admin: 09/25/20 08:31 Dose: 5 mg Documented by: Sodium Chloride (0.9% Nacl Peripheral Flush Adult/Peds) 5 - 15 ml IV UD PRN PRN Reason: SALINE FLUSH Last Admin: 09/26/20 10:48 Dose: 10 ml Documented by: STROKE Vital Signs/Narrative: Vital Signs Pulse BP 09/28/20 05:23 68 131/63 H Medical Necessity - Tobacco Use Smoking Status: Former smoker Assessment/Plan All Active Problems (Last Reviewed 09/14/20 @ 10:[address] Aramis Matthew MD) Bladder tumor (Acute) Bladder cancer (Acute) Incarcerated left inguinal hernia (Acute) Leukocytosis (Acute) Gross hematuria (Acute) Abrasion of right hand, initial encounter (Acute) Contusion of unspecified front wall of thorax, initial encounter (Acute) #Invasive bladder cancer * S/p laparoscopic radical cystoprostatectomy with creation of ileal conduit and repair of incarcerated left inguinal hernia on 09/14/2020 * wbc today is 30.2 * Urology on board. #small bowel obstruction * NG tube is out * TPN likely to be discontinued today as he is tolerating oral diet * general surgery on board. * #Leucocytosis * wbc down to 28 today. There is no clear evidence of infection. * Initial blood culture showed no growth after 5 days repeat blood cultures were also negative. Initial urine cultures also showed no growth and repeat urine cultures are growing Staph hemolyticus. Covid test was negative. * C Diff negative. * now on IV linezolid, per ID * * #History of non sustained ventricular tachycardia * 2D echo from december 2019 showed EF of 65%, with stage 2 diastolic dysfunction and RVSP of 35mmHg * on IV metoprolol * oral metoprolol resumed * follows up with cardiology at [facility] * # Hypertension: controlled. Losartan on hold o/a of MERLE. resume metoprolol today #Hyperlipidemia: on statin #MERLE on CKD: nephrology on board. Cr today is pending. baseline Cr is ~ 1.6 Hypernatremia: resolved. Nutrition: on TPN. Dietitian on board. DVT prophylaxis: on lovenox 30mg bid Inpatient E&M: 93684 Subs Hosp L2
[2020-09-28 08:08] LABS: Anion Gap 7 (5-15); BUN 51 mg/dL (7-18); BUN/Creat Ratio 25.8 RATIO (10-20); Calcium,Total 7.8 mg/dL (8.5-10.1); Chloride 110 mmol/L (98-107); Creatinine, Serum 1.98 mg/dL (0.70-1.30); EST Glomerular Filtration Rate 35 mL/min (>60); Est Glom Filt Rate - Afr Amer 42 mL/min (>60); Estimated Creatinine Clearance 31.16 ml/min; Glucose 116 mg/dL (74-106); Magnesium 1.8 mg/dL (1.6-2.6); Phosphorus 3.1 mg/dL (2.5-4.9); Potassium 4.3 mmol/L (3.5-5.1); Sodium Level 141 mmol/L (136-145)
[2020-09-28] MEDS: Multivitamins,Therapeutic Tablet 1 TABLET PO (08:27)
[2020-09-28 08:32] LABS: Lymphocyte 11 % (19-41); Metamyelocyte 1 % (0-1); Monocyte 22 % (0-10); Neutrophil-Segmented 66 % (47-70); Platelet Estimate SLT DEC (ADEQ); Red Cell Morphology NORM C+C NORMAL (NORM C&C); Total Cells Counted 100 (MANUAL DIFF)
[2020-09-28 08:33] LABS: Absolute Neutrophil Count 20.1 X10^3/uL (2.0-7.7)
[2020-09-28] MEDS: Metoprolol Tartrate 25 MG Tablet PO ×2 (09:33→21:40)
[2020-09-28] MEDS: Docusate Sodium 100 MG Capsule 200 MG PO ×2 (09:34→21:39)
[2020-09-28] MEDS: Menthol/Lanolin/Calamine/Znox 113 GM Tube 1 APPLIC TOPICAL ×2 (09:34→21:39)
[2020-09-28] MEDS: Enoxaparin 30 MG/0.3 ML Syringe SC (09:34)
--- NOTE | 2020-09-28 10:47 | NT.THERAPY_ITS ---
Nutrition Therapy Report - History Nutrition Services has been consulted to:: Manage nutrient details of diet order, Manage parenteral nutrition Current diet / nutrition support order:: Regular diet; TPN 2L 4.25% AA/10% dextrose to provide 1020 calories, 84 g protein - Anthropometric Measurements Height:: 5 ft 11 in Weight:: 110.7 kg Body Mass Index (BMI):: 34.0 - Relevant Labs Relevant Labs:: WBC 30.4 K/mm3 (4.4-11.0) H* 09/28/20 07:10 RBC 3.10 M/mm3 (4.6-6.2) L 09/28/20 07:10 Hgb 8.3 g/dL (13.0-16.5) L 09/28/20 07:10 Hct 27.0 % (40-54) L 09/28/20 07:10 MCH 26.8 pg (27.0-32.0) L 09/28/20 07:10 MCHC 30.7 g/dL (32-36) L 09/28/20 07:10 RDW Std Deviation 49.4 fl (35.1-43.9) H 09/28/20 07:10 RDW Coeff of Jeff 16.2 % (11.6-14.6) H 09/28/20 07:10 Plt Count 102 K/mm3 (150-450) L 09/28/20 07:10 MPV 12.5 fl (6.2-12.0) H 09/28/20 07:10 Immature Gran % (Auto) 4.500 % (0.0-0.9) H 09/26/20 07:25 Lymph % (Auto) 8.4 % (19-41) L 09/26/20 07:25 [place] % (Auto) 20.7 % (0-10) H 09/26/20 07:25 Absolute Neuts (auto) 20.1 X10^3/uL (2.0-7.7) H 09/28/20 07:10 Lymphocytes % (Manual) 11 % (19-41) L 09/28/20 07:10 Monocytes % (Manual) 22 % (0-10) H 09/28/20 07:10 Myelocytes % 1 (0-0) H 09/27/20 06:45 Sodium 135 mmol/L (136-145) L 09/25/20 06:40 Potassium 3.2 mmol/L (3.5-5.1) L 09/23/20 06:30 Chloride 110 mmol/L (98-107) H 09/28/20 07:10 Carbon Dioxide 35.0 mmol/L (21.0-32.0) H 09/23/20 06:30 Anion Gap 4 (5-15) L 09/22/20 07:40 BUN 51 mg/dL (7-18) H 09/28/20 07:10 Creatinine 1.98 mg/dL (0.70-1.30) H 09/28/20 07:10 Est GFR (MDRD) Af Amer 42 mL/min (>60) L 09/28/20 07:10 Est GFR (MDRD) Non-Af 35 mL/min (>60) L 09/28/20 07:10 BUN/Creatinine Ratio 25.8 RATIO (10-20) H 09/28/20 07:10 Glucose 116 mg/dL (74-106) H 09/28/20 07:10 Calcium 7.8 mg/dL (8.5-10.1) L 09/28/20 07:10 Phosphorus 2.4 mg/dL (2.5-4.9) L 09/23/20 06:30 Total Bilirubin 1.10 mg/dL (0.20-1.00) H 09/23/20 06:30 AST 45 U/L (15-37) H 09/26/20 07:25 ALT 106 U/L (16-61) H 09/26/20 07:25 Total Protein 5.2 g/dL (6.4-8.2) L 09/26/20 07:25 Albumin 2.5 g/dL (3.2-5.0) L 09/26/20 07:25 Albumin/Globulin Ratio 0.8 RATIO (0.9-2.4) L 09/24/20 04:53 - Assessment Food / Nutrition-Related History:: Continues w/ regular diet. No issues w/ tolerance reported. Pt states he ate too much this AM and feels full. Diet recall: yesterday at lunch estimated 425 calories consumed. Did not eat dinner. Breakfast, estimated 650 calories. Pt states he normally only has 2 meals per day at home. Day #7 of TPN infusing- 2L 4.25% AA/10% dextrose to provide 1020 calories, 84 g protein. Wt stable, 0.1 kg decrease noted. - Nutrition Intervention Nutrition Prescription:: Estimated needs [id number] calories/day, 80-110 g protein/day for wt maintenance. No further concerns for refeeding syndrome as pt has had TPN x 1 week and PO diet x 3 days. - Food / Nutrient Delivery Interventions Summary of nutrition intervention:: Took dinner order for pt as he states he does not want lunch today d/t eating a larger breakfast. Appears to be close to his baseline nutritional intake. Discussed w/ Dr. Skinner. Do not feel TPN necessary to continue today. Will defer ONS at this time- appears to be consuming adequate calories/protein. Nutrition support ordered as / adjusted to:: continue regular diet as tolerated Nutrition education provided?: Yes - encouraged adequate protein intake. Pt w/ no questions - MNT Monitoring MNT Follow-up in:: 1-2 days - will continue to monitor calorie intake and provide further recommendations as indicated
[2020-09-28] MEDS: Linezolid 600 MG 600 MG/300 ML BAG 200 MG IV ×2 (10:55→21:48)
[2020-09-28] MEDS: 0.9% NaCl Peripheral Flush Adult/Peds IV ×2 (12:39→21:50)
[2020-09-28 12:44] LABS: Pathologist Review Reviewed
[2020-09-28 12:45] LABS: Bedside Glucose 237 mg/dL (70-110)
[2020-09-28] MEDS: Insulin Lispro 100 UNIT/ML INSULN.PEN SC (12:45)
--- NOTE | 2020-09-28 14:44 | CASEMGMT ---
LIAM CM in to follow-up with patient regarding discharge planning. [facility]. Patient states he will need walker at discharge and agreeable to [employer]. Green sheet placed on chart for HHC and walker with [employer].
--- NOTE | 2020-09-28 16:18 | PN.ID_ITS ---
Patient Problems: Active and Suspected Problems (Last Reviewed 09/14/20 @ 10:[address] Aramis Matthew MD) Bladder cancer (Acute) Incarcerated left inguinal hernia (Acute) Leukocytosis (Acute) Subjective: Feeling ok, no abd pain, no fever, no cough. - Physical Exam Vitals/I&O's: Vital Signs Temp Pulse Resp BP Pulse Ox 98.6 F 74 18 118/68 98 09/28/20 15:02 09/28/20 15:02 09/28/20 15:02 09/28/20 15:02 09/28/20 15:02 Oxygen Flow Rate (L/min) 2 Oxygen Delivery Method Room Air Weight: 110.7 kg Body Mass Index (BMI) 34.0 Intake and Output for Last 24 Hours 09/26/20 09/27/20 09/28/20 23:59 23:59 23:59 Intake Total 3521 / 3671 3921 / 4071 1010 / 1010 Output Total 2050 / 2800 2600 / 3600 1800 / 1800 Balance 1471 / 871 1321 / 471 -790 / -790 General: Alert, Cooperative, No apparent distress Lungs: Clear to auscultation, Normal air movement Cardiovascular: Regular rate, Regular Rhythm Abdomen: Soft, Non Tender, Non-Distended Skin: Incision - no redness or drainage Microbiology Past 72 Hours 09/26/20 08:00 Wound - Abdominal Gram Stain - Final 09/26/20 08:00 Wound - Abdominal Wound Culture - Preliminary Staphylococcus species Staphylococcus species#2 09/24/20 07:54 Blood Culture (Wb) - Left Hand Blood Culture - Preliminary No growth in 48 hours. 09/24/20 08:04 Urine Catheter - Catheter Urine Culture - Final Staphylococcus haemolyticus Laboratory Results 09/27/20 18:21: POC Glucose 111 H 09/28/20 00:04: POC Glucose 141 H 09/28/20 05:29: POC Glucose 118 H 09/28/20 07:10: Sodium 141, Potassium 4.3, Chloride 110 H, Carbon Dioxide 24.0, Anion Gap 7, BUN 51 H, Creatinine 1.98 H, Estim Creat Clear Calc 31.16, Est GFR (MDRD) Af Amer 42 L, Est GFR (MDRD) Non-Af 35 L, BUN/Creatinine Ratio 25.8 H, Glucose 116 H, Calcium 7.8 L, Phosphorus 3.1, Magnesium 1.8 09/28/20 07:10: WBC 30.4 H*, RBC 3.10 L, Hgb 8.3 L, Hct 27.0 L, MCV 87.1, MCH 26.8 L, MCHC 30.7 L, RDW Std Deviation 49.4 H, RDW Coeff of Jeff 16.2 H, Plt Count 102 L, MPV 12.5 H, Neut % (Auto) Not Reportable, Absolute Neuts (auto) 20.1 H, Absolute Lymphs (auto) 3.30, Total Counted 100, Neutrophils % (Manual) 66, Lymphocytes % (Manual) 11 L, Monocytes % (Manual) 22 H, Metamyelocytes % 1, Diff Path Review Reviewed, Platelet Estimate SLT DEC, RBC Morphology NORM C+C 09/28/20 12:33: POC Glucose 237 H Current Medications Acetaminophen (Acetaminophen 325 Mg Tablet) 325 - 650 mg PO Q4H PRN PRN PRN Reason: pain score 1-10/fever/headache Atorvastatin Calcium (Atorvastatin Calcium 10 Mg Tablet) 5 mg PO QHS [facility] Calamine/Phenol (Menthol/Lanolin/Calamine/Znox 113 Gm Tube) 1 applic TOPICAL BID [facility]; Protocol Last Admin: 09/28/20 09:34 Dose: 1 applicatio Documented by: Docusate Sodium (Docusate Sodium 100 Mg Capsule) 200 mg PO BID [facility] Last Admin: 09/28/20 09:34 Dose: 200 mg Documented by: Enoxaparin Sodium (Enoxaparin 30 Mg/0.3 Ml Syringe) 30 mg SC DAILY [facility] Last Admin: 09/28/20 09:34 Dose: 30 mg Documented by: Pantoprazole Sodium 40 mg/ (Sodium Chloride) 110 mls @ 330 mls/hr IV Q24 [facility] Last Infusion: 09/28/20 10:00 Dose: Infused Documented by: Insulin Human Lispro (Insulin Lispro 100 Unit/Ml Insuln.Pen) 0 unit SC Q6 [facility]; Protocol Last Admin: 09/28/20 12:45 Dose: 2 u Documented by: Linezolid (Linezolid 600 Mg Tablet) 600 mg PO BID [facility] Metoclopramide HCl (Metoclopramide 10 Mg/2 Ml Vial) 5 mg IV Q6 [facility] Last Admin: 09/28/20 12:39 Dose: 5 mg Documented by: Metoprolol Tartrate (Metoprolol Tartrate 25 Mg Tablet) 25 mg PO BID [facility] Last Admin: 09/28/20 09:33 Dose: 25 mg Documented by: Multivitamins ([facility],Therapeutic Tablet) [facility] Last Admin: 09/28/20 08:27 Dose: 1 tablet Documented by: Ondansetron HCl (Ondansetron 4 Mg/2 Ml Vial) 4 mg IV Q6H PRN PRN PRN Reason: NAUSEA Last Admin: 09/25/20 05:55 Dose: 4 mg Documented by: Prochlorperazine Edisylate (Prochlorperazine 10 Mg/2 Ml Vial) 5 mg IV Q6H PRN PRN PRN Reason: NAUSEA/VOMITING Last Admin: 09/25/20 08:31 Dose: 5 mg Documented by: Sodium Chloride (0.9% Nacl Peripheral Flush Adult/Peds) 5 - 15 ml IV UD PRN PRN Reason: SALINE FLUSH Last Admin: 09/28/20 12:39 Dose: 10 ml Documented by: Medical Necessity - Tobacco Use Smoking Status: Former smoker Route of nutrition/ use of supplements: [] Nutritional Intake: [] IV Site: [] Mcpherson Catheter: [] - Assessment/Plan Antibiotics: [] Assessment/Plan: [] Active and Suspected Problems (Last Reviewed 09/14/20 @ 10:[address] Aramis Matthew MD) Bladder cancer (Acute) Incarcerated left inguinal hernia (Acute) Leukocytosis s/p surgery 09/14 with bladder/prostate resection and ileal conduit. Wbc remains elevated but pt feeling better, ileus resolving, ucx neg except for less than 1000 cfu of CoNS, CT neg for abscess, and neg cdiff. On linezolid for staph from wound cx of incision. Will follow
[2020-09-28] MEDS: Atorvastatin Calcium 10 MG Tablet 5 MG PO (21:40)
[2020-09-28 22:05] LABS: Bedside Glucose 134 mg/dL (70-110)
[2020-09-29] VITALS (8 sets, daily range): BP systolic 118–137; BP diastolic 59–68; PULSE 61–88; RESP 12–18; TEMP 36.4–36.8; O2SAT 96–97
[2020-09-29] MEDS: Metoclopramide 10 MG/2 ML Vial 5 MG IV ×3 (00:02→11:19)
[2020-09-29 06:56] LABS: Bedside Glucose 96 mg/dL (70-110)
[2020-09-29 07:44] LABS: Anion Gap 3 (5-15); BUN 50 mg/dL (7-18); BUN/Creat Ratio 23.3 RATIO (10-20); Calcium,Total 8.2 mg/dL (8.5-10.1); Chloride 114 mmol/L (98-107); Creatinine, Serum 2.15 mg/dL (0.70-1.30); EST Glomerular Filtration Rate 32 mL/min (>60); Est Glom Filt Rate - Afr Amer 38 mL/min (>60); Glucose 94 mg/dL (74-106); Potassium 4.5 mmol/L (3.5-5.1); Sodium Level 142 mmol/L (136-145)
--- NOTE | 2020-09-29 07:56 | PCM.PN.HOSP ---
Patient Problems: Active and Suspected Problems (Last Reviewed 09/14/20 @ 10:[address] Aramis Matthew MD) Bladder cancer (Acute) Incarcerated left inguinal hernia (Acute) Leukocytosis (Acute) Subjective: Patient seen and examined. He has no complaints today. He has remained hemodynamically stable. He is off TPN. Review of symptoms otherwise negative. He is tolerating oral diet very well. Vitals/I&O's: Vital Signs Temp Pulse Resp BP Pulse Ox 98.3 F 88 18 121/61 H 96 09/29/20 06:15 09/29/20 07:54 09/29/20 06:15 09/29/20 06:15 09/29/20 06:15 Oxygen Flow Rate (L/min) 2 Oxygen Delivery Method Room Air Weight: 245 lb 13.047 oz Body Mass Index (BMI) 34.0 Intake and Output for Last 24 Hours 09/27/20 09/28/20 09/29/20 23:59 23:59 23:59 Intake Total 3921 / 4071 3951 / 3951 120 / 120 Output Total 2600 / 3600 3200 / 3200 650 / 650 Balance 1321 / 471 751 / 751 -530 / -530 General: Alert, Oriented x3, Cooperative HEENT: Atraumatic, PERRLA, EOMI, Normocephalic Oral: Dry Mucosa Neck: Supple, No JVD, Negative Carotid Bruits Lungs: Clear to auscultation, Normal air movement, No rhonchi, No wheeze Cardiovascular: Regular rate, Regular Rhythm, Normal S1, Normal S2, No murmurs Abdomen: Bowel Sounds Present, Soft, Non Tender, Non-Distended, No Hepato-splenomegaly; laparotomy stitches removed, ileostomy bag in place Extremities: No clubbing, No cyanosis, No edema, Capillary Refill Less than 3 Seconds Skin: No rashes, No breakdown Musculoskeletal: No Tenderness to Palpation of Joints or Extremities Lymphatic: No Cervical, Supraclavicular, or Inguinal Adenopathy Neurological: Cranial nerves II-XII grossly intact, Neuro grossly intact, Motor Exam 5/5 strength throughout Psych/Mental Status: Normal Affect, Appropriate, Alert and oriented to time, place, person, mood and affect Microbiology Past 72 Hours 09/26/20 08:00 Wound - Abdominal Gram Stain - Final 09/26/20 08:00 Wound - Abdominal Wound Culture - Final Staphylococcus capitis Staphylococcus haemolyticus 09/24/20 07:54 Blood Culture (Wb) - Left Hand Blood Culture - Preliminary No growth in 48 hours. 09/24/20 08:04 Urine Catheter - Catheter Urine Culture - Final Staphylococcus haemolyticus Laboratory Results 09/28/20 07:10: Sodium 141, Potassium 4.3, Chloride 110 H, Carbon Dioxide 24.0, Anion Gap 7, BUN 51 H, Creatinine 1.98 H, Estim Creat Clear Calc 31.16, Est GFR (MDRD) Af Amer 42 L, Est GFR (MDRD) Non-Af 35 L, BUN/Creatinine Ratio 25.8 H, Glucose 116 H, Calcium 7.8 L, Phosphorus 3.1, Magnesium 1.8 09/28/20 07:10: Absolute Neuts (auto) 20.1 H, Absolute Lymphs (auto) 3.30, Total Counted 100, Neutrophils % (Manual) 66, Lymphocytes % (Manual) 11 L, Monocytes % (Manual) 22 H, Metamyelocytes % 1, Diff Path Review Reviewed, Platelet Estimate SLT DEC, RBC Morphology NORM C+C 09/28/20 12:33: POC Glucose 237 H 09/28/20 21:35: POC Glucose 134 H 09/29/20 06:53: POC Glucose 96 09/29/20 06:58: Sodium 142, Potassium 4.5, Chloride 114 H, Carbon Dioxide 25.0, Anion Gap 3 L, BUN 50 H, Creatinine 2.15 H, Estim Creat Clear Calc 28.70, Est GFR (MDRD) Af Amer 38 L, Est GFR (MDRD) Non-Af 32 L, BUN/Creatinine Ratio 23.3 H, Glucose 94, Calcium 8.2 L Current Medications Acetaminophen (Acetaminophen 325 Mg Tablet) 325 - 650 mg PO Q4H PRN PRN PRN Reason: pain score 1-10/fever/headache Atorvastatin Calcium (Atorvastatin Calcium 10 Mg Tablet) 5 mg PO QHS [facility] Last Admin: 09/28/20 21:40 Dose: 5 mg Documented by: Calamine/Phenol (Menthol/Lanolin/Calamine/Znox 113 Gm Tube) 1 applic TOPICAL BID [facility]; Protocol Last Admin: 09/28/20 21:39 Dose: 1 applicatio Documented by: Docusate Sodium (Docusate Sodium 100 Mg Capsule) 200 mg PO BID [facility] Last Admin: 09/28/20 21:39 Dose: 200 mg Documented by: Enoxaparin Sodium (Enoxaparin 30 Mg/0.3 Ml Syringe) 30 mg SC DAILY [facility] Last Admin: 09/28/20 09:34 Dose: 30 mg Documented by: Pantoprazole Sodium 40 mg/ (Sodium Chloride) 110 mls @ 330 mls/hr IV Q24 [facility] Last Infusion: 09/28/20 10:00 Dose: Infused Documented by: Linezolid (Zyvox 600mg) 600 mg in 300 mls @ 200 mls/hr IV Q12 [facility] Last Infusion: 09/28/20 23:43 Dose: Infused Documented by: Insulin Human Lispro (Insulin Lispro 100 Unit/Ml Insuln.Pen) 0 unit SC ACHS [facility]; Protocol Last Admin: 09/29/20 07:11 Dose: Not Given Documented by: Metoclopramide HCl (Metoclopramide 10 Mg/2 Ml Vial) 5 mg IV Q6 [facility] Last Admin: 09/29/20 06:07 Dose: 5 mg Documented by: Metoprolol Tartrate (Metoprolol Tartrate 25 Mg Tablet) 25 mg PO BID [facility] Last Admin: 09/28/20 21:40 Dose: 25 mg Documented by: Multivitamins ([facility]it[facility],Therapeutic Tablet) [facility] Last Admin: 09/28/20 08:27 Dose: 1 tablet Documented by: Ondansetron HCl (Ondansetron 4 Mg/2 Ml Vial) 4 mg IV Q6H PRN PRN PRN Reason: NAUSEA Last Admin: 09/25/20 05:55 Dose: 4 mg Documented by: Prochlorperazine Edisylate (Prochlorperazine 10 Mg/2 Ml Vial) 5 mg IV Q6H PRN PRN PRN Reason: NAUSEA/VOMITING Last Admin: 09/25/20 08:31 Dose: 5 mg Documented by: Sodium Chloride (0.9% Nacl Peripheral Flush Adult/Peds) 5 - 15 ml IV UD PRN PRN Reason: SALINE FLUSH Last Admin: 09/28/20 21:50 Dose: 10 ml Documented by: STROKE Vital Signs/Narrative: Vital Signs Temp Pulse Resp BP Pulse Ox 09/29/20 07:54 88 09/29/20 06:15 98.3 F 75 18 121/61 H 96 09/29/20 06:00 73 Medical Necessity - Tobacco Use Smoking Status: Former smoker Assessment/Plan All Active Problems (Last Reviewed 09/14/20 @ 10:[address] Aramis Matthew MD) Bladder tumor (Acute) Bladder cancer (Acute) Incarcerated left inguinal hernia (Acute) Leukocytosis (Acute) Gross hematuria (Acute) Abrasion of right hand, initial encounter (Acute) Contusion of unspecified front wall of thorax, initial encounter (Acute) #Invasive bladder cancer S/p laparoscopic radical cystoprostatectomy with creation of ileal conduit and repair of incarcerated left inguinal hernia on 09/14/2020 wbc today is 28.3 Urology on board. #small bowel obstruction resolved. TPN stopped now on oral diet and tolerating it well general surgery on board. #Leucocytosis wbc pending today Initial blood culture showed no growth after 5 days repeat blood cultures were also negative. Initial urine cultures also showed no growth and repeat urine cultures are growing Staph hemolyticus. Covid test was negative. C Diff negative. now on IV linezolid, per ID #History of non sustained ventricular tachycardia 2D echo from december 2019 showed EF of 65%, with stage 2 diastolic dysfunction and RVSP of 35mmHg on IV metoprolol oral metoprolol resumed follows up with cardiology at [facility] # Hypertension: controlled. Losartan on hold o/a of MERLE. metoprolol resumed #Hyperlipidemia: on statin #MERLE on CKD: nephrology on board. Cr today is 2.15. baseline Cr is ~ 1.6 Hypernatremia: resolved. Nutrition: TPN discontinued. Now on oral diet. DVT prophylaxis: on lovenox 30mg bid ] Inpatient E&M: 22887 Subs Hosp L2
--- NOTE | 2020-09-29 08:16 | DCINST_ITS ---
Discharge Diet: Light diet - advance as tolerated, Soft diet Discharge Activity: May Shower May shower in (days): 1 Lifting Restrictions: no lifting Call your doctor if your incision/area has: Continuous Slow Oozing, Sudden Increased Bleeding, Increased Pain/ Swelling, Increased Redness, Foul Smelling Discharge, Swelling at the incision site Call your doctor if you observe: Fever of 101 or Higher, Uncontrolled pain Suture Line Care: Avoid Pulling/Pushing, Avoid Pinching/Bending Additional Instructions: He will need home health nurse to assist with stoma care and wound care. Allergies/Adverse Reactions: Allergies atenolol Adverse Reaction (Verified 09/14/20 09:51) hypotension HYPOTENSION tamsulosin [From Flomax] Adverse Reaction (Verified 09/14/20 09:51) PT UNSURE OF REACTION passed out Medications to take at Discharge Losartan Potassium [Cozaar] 50 mg PO DAILY 05/01/16 Simvastatin [Zocor] 10 mg PO QHS 05/01/16 Aspirin [Aspirin, Baby] 81 mg PO DAILY@0800 05/01/19 Multivitamin [Daily Value] 1 ea PO DAILY 12/11/19 Vit C/E/Zn/Coppr/Lutein/Zeaxan [Preservision Areds 2 Softgel] 1 ea PO BID 12/11/19 Metoprolol Tartrate [Lopressor (beta neetu)] 25 mg PO BID #60 tab 12/13/19 Linezolid 600 mg PO BID #20 tab 09/29/20 Primary Care Physician: Kim Torres MD [Primary Care Provider] - Test Results: Test results from this visit will be discussed in further detail at your follow- up appointment, if applicable. Please Follow Up With: Aramis Matthew MD When: in 2 weeks, please call to make an appointment.
[2020-09-29] MEDS: Metoprolol Tartrate 25 MG Tablet PO (08:18)
[2020-09-29] MEDS: Multivitamins,Therapeutic Tablet 1 TABLET PO (08:19)
[2020-09-29] MEDS: Docusate Sodium 100 MG Capsule 200 MG PO (08:19)
--- NOTE | 2020-09-29 08:19 | PCM.DC.SUM ---
Discharge Date and Diagnosis - Problem List Patient Problems: Active and Suspected Problems (Last Reviewed 09/14/20 @ 10:[address] Aramis Matthew MD) Bladder cancer (Acute) Incarcerated left inguinal hernia (Acute) Leukocytosis (Acute) Date of Admission: 09/14/20 Date of Discharge: 09/29/20 - Primary Discharge Diagnosis Acute Problems: Active Problems (Last Reviewed 09/14/20 @ 10:[address] 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 He was taken to surgery for a open cystectomy and formation of ileal conduit at the same time we also did a repair of an incarcerated hernia with general surgery. Postoperative course has been prolonged due to several complications. Immediately after surgery he developed acute kidney injury poor urine output rising creatinine he was aggressively hydrated. In surgery was found to have obstruction of the kidneys. Stents are in place. And over time his kidney function improved and normalized and his urine output improved. He is now has adequate kidney function his creatinine still somewhat high but trending downwards. His other major problem after surgery was prolonged ileus. He required TPN for at least 7 days as his ileus resolved. During the postoperative course continued nausea vomiting required NG tube decompression with general surgery we almost extubation back to surgery for exploration but on a small bowel follow-through we found that there was no perforation of the bowel and contrast went through all the way to the rectum and therefore we continue with close observation and fortunately his ileus resolved and now he is off the TPN and tolerating regular diet. He has become fairly weak but fortunately has been able to walk around the hallways with a walker and with physical therapy. His last issue is a somewhat unusual high white blood count. When we cultured him he did have some bacteria in the urine and also some bacteria in the wound so currently he is on linezolid to treat this infection his white count is still 12 30,000 however he is not febrile he is not ill he is not sick so I do not think keeping the patient hospital just for a high white blood count is indicated he can go home with continued outpatient management for his infection with linezolid which is appropriate antibiotic. He will be discharged home today with another 10 days of linezolid. He will need home care which is been arranged by the hospital staff already for ostomy care and wound care. He will continue to get physical therapy which she should get as an outpatient at home. He can follow-up in my office in 2 weeks for checkup. Reviewed this with the patient he is agreeable with going home and will have everything set up from today. Patient Problems: Active and Suspected Problems (Last Reviewed 09/14/20 @ 10:[address] Aramis Matthew MD) Bladder cancer (Acute) Incarcerated left inguinal hernia (Acute) Leukocytosis (Acute) - Physical Exam Vitals/I&O's: Vital Signs Temp Pulse Resp BP Pulse Ox 98.3 F 88 18 121/61 H 96 09/29/20 06:15 09/29/20 07:54 09/29/20 06:15 09/29/20 06:15 09/29/20 06:15 Oxygen Flow Rate (L/min) 2 Oxygen Delivery Method Room Air Weight: 111.5 kg Body Mass Index (BMI) 34.0 Intake and Output for Last 24 Hours 09/27/20 09/28/20 09/29/20 23:59 23:59 23:59 Intake Total 3921 / 4071 3951 / 3951 120 / 120 Output Total 2600 / 3600 3200 / 3200 650 / 650 Balance 1321 / 471 751 / 751 -530 / -530 General: Alert, Oriented x3, Cooperative HEENT: Atraumatic, PERRLA, EOMI, Normocephalic Neck: Supple, No JVD, Negative Carotid Bruits Lungs: Clear to auscultation, Normal air movement Cardiovascular: Regular rate, No murmurs Abdomen: Bowel Sounds Present, Soft, Non Tender Extremities: No edema, Capillary Refill Less than 3 Seconds Skin: No rashes, No breakdown Musculoskeletal: No Tenderness to Palpation of Joints or Extremities Neurological: Cranial nerves II-XII grossly intact Psych/Mental Status: Normal Affect, Appropriate Microbiology Past 72 Hours 09/26/20 08:00 Wound - Abdominal Gram Stain - Final 09/26/20 08:00 Wound - Abdominal Wound Culture - Final Staphylococcus capitis Staphylococcus haemolyticus 09/24/20 07:54 Blood Culture (Wb) - Left Hand Blood Culture - Preliminary No growth in 48 hours. 09/24/20 08:04 Urine Catheter - Catheter Urine Culture - Final Staphylococcus haemolyticus Laboratory Results 09/28/20 07:10: Absolute Neuts (auto) 20.1 H, Absolute Lymphs (auto) 3.30, Total Counted 100, Neutrophils % (Manual) 66, Lymphocytes % (Manual) 11 L, Monocytes % (Manual) 22 H, Metamyelocytes % 1, Diff Path Review Reviewed, Platelet Estimate SLT DEC, RBC Morphology NORM C+C 09/28/20 12:33: POC Glucose 237 H 09/28/20 21:35: POC Glucose 134 H 09/29/20 06:53: POC Glucose 96 09/29/20 06:58: Sodium 142, Potassium 4.5, Chloride 114 H, Carbon Dioxide 25.0, Anion Gap 3 L, BUN 50 H, Creatinine 2.15 H, Estim Creat Clear Calc 28.70, Est GFR (MDRD) Af Amer 38 L, Est GFR (MDRD) Non-Af 32 L, BUN/Creatinine Ratio 23.3 H, Glucose 94, Calcium 8.2 L Current Medications Acetaminophen (Acetaminophen 325 Mg Tablet) 325 - 650 mg PO Q4H PRN PRN PRN Reason: pain score 1-10/fever/headache Atorvastatin Calcium (Atorvastatin Calcium 10 Mg Tablet) 5 mg PO QHS [facility] Last Admin: 09/28/20 21:40 Dose: 5 mg Documented by: Calamine/Phenol (Menthol/Lanolin/Calamine/Znox 113 Gm Tube) 1 applic TOPICAL BID [facility]; Protocol Last Admin: 09/28/20 21:39 Dose: 1 applicatio Documented by: Docusate Sodium (Docusate Sodium 100 Mg Capsule) 200 mg PO BID [facility] Last Admin: 09/28/20 21:39 Dose: 200 mg Documented by: Enoxaparin Sodium (Enoxaparin 30 Mg/0.3 Ml Syringe) 30 mg SC DAILY [facility] Last Admin: 09/28/20 09:34 Dose: 30 mg Documented by: Pantoprazole Sodium 40 mg/ (Sodium Chloride) 110 mls @ 330 mls/hr IV Q24 [facility] Last Infusion: 09/28/20 10:00 Dose: Infused Documented by: Linezolid (Zyvox 600mg) 600 mg in 300 mls @ 200 mls/hr IV Q12 [facility] Last Infusion: 09/28/20 23:43 Dose: Infused Documented by: Insulin Human Lispro (Insulin Lispro 100 Unit/Ml Insuln.Pen) 0 unit SC ACHS [facility]; Protocol Last Admin: 09/29/20 07:11 Dose: Not Given Documented by: Metoclopramide HCl (Metoclopramide 10 Mg/2 Ml Vial) 5 mg IV Q6 [facility] Last Admin: 09/29/20 06:07 Dose: 5 mg Documented by: Metoprolol Tartrate (Metoprolol Tartrate 25 Mg Tablet) 25 mg PO BID [facility] Last Admin: 09/28/20 21:40 Dose: 25 mg Documented by: Multivitamins (Multivitamins,Therapeutic Tablet) 1 tablet PO DAILYCM [facility] Last Admin: 09/28/20 08:27 Dose: 1 tablet Documented by: Ondansetron HCl (Ondansetron 4 Mg/2 Ml Vial) 4 mg IV Q6H PRN PRN PRN Reason: NAUSEA Last Admin: 09/25/20 05:55 Dose: 4 mg Documented by: Prochlorperazine Edisylate (Prochlorperazine 10 Mg/2 Ml Vial) 5 mg IV Q6H PRN PRN PRN Reason: NAUSEA/VOMITING Last Admin: 09/25/20 08:31 Dose: 5 mg Documented by: Sodium Chloride (0.9% Nacl Peripheral Flush Adult/Peds) 5 - 15 ml IV UD PRN PRN Reason: SALINE FLUSH Last Admin: 09/28/20 21:50 Dose: 10 ml Documented by: Discharge Diet: Light diet - advance as tolerated, Soft diet Discharge Activity: May Shower May shower in (days): 1 Call your doctor if your incision/area has: Continuous Slow Oozing, Sudden Increased Bleeding, Increased Pain/ Swelling, Increased Redness, Foul Smelling Discharge, Swelling at the incision site Call your doctor if you observe: Fever of 101 or Higher, Uncontrolled pain Suture Line Care: Avoid Pulling/Pushing, Avoid Pinching/Bending Home Medications: Medications to take at Discharge Losartan Potassium [Cozaar] 50 mg PO DAILY 05/01/16 Simvastatin [Zocor] 10 mg PO QHS 05/01/16 Aspirin [Aspirin, Baby] 81 mg PO DAILY@0800 05/01/19 Multivitamin [Daily Value] 1 ea PO DAILY 12/11/19 Vit C/E/Zn/Coppr/Lutein/Zeaxan [Preservision Areds 2 Softgel] 1 ea PO BID 12/11/19 Metoprolol Tartrate [Lopressor (beta neetu)] 25 mg PO BID #60 tab 12/13/19 Linezolid 600 mg PO BID #20 tab 09/29/20 Following Prescriptions Were Given to Patient: Linezolid 600 mg PO BID #20 tab Transmission Status: Pending to [facility] Primary Care Physician: Kim Torres MD [Primary Care Provider] - Please Follow Up With: Aramis Matthew MD When: in 2 weeks, please call to make an appointment. Additional Instructions: He will need home health nurse to assist with stoma care and wound care. Medical Necessity - Tobacco Use Smoking Status: Former smoker Meaningful Use Info Meaningful Use Diagnoses (Choose all that apply): None applicable
[2020-09-29 09:30] LABS: Hematocrit 26.7 % (40-54); Hemoglobin 8.3 g/dL (13.0-16.5); Mean Corp Hgb Conc 31.1 g/dL (32-36); Mean Corpuscular Hgb 27.2 pg (27.0-32.0); Mean Corpuscular Volume 87.5 fL (80-94); Mean Platelet Vol. 12.9 fl (6.2-12.0); POSITIVE COUNT YES; POSITIVE DIFFERENTIAL YES; POSITIVE MORPHOLOGY YES; Platelet Count 116 K/mm3 (150-450); RBC Distribution Width CV 16.7 % (11.6-14.6); RBC Distribution Width SD 51.3 fl (35.1-43.9); Red Blood Count 3.05 M/mm3 (4.6-6.2); White Blood Count 28.2 K/mm3 (4.4-11.0)
[2020-09-29 09:31] LABS: Differential Indicated MANUAL DIFF
[2020-09-29 10:41] LABS: Lymphocyte 8 % (19-41); Metamyelocyte 3 % (0-1); Monocyte 17 % (0-10); Myelocyte 1 (0-0); Neutrophil-Band 2 % (0-5); Neutrophil-Segmented 69 % (47-70); Total Cells Counted 100 (MANUAL DIFF)
[2020-09-29 10:42] LABS: Hypochromasia 2+; Microcytosis 1+; Platelet Estimate MOD DEC (ADEQ)
[2020-09-29 10:43] LABS: Absolute Lymphocyte Count 2.25 X10^3/uL (0.83-4.51)
[2020-09-29 11:16] LABS: Bedside Glucose 147 mg/dL (70-110)
[2020-09-29] MEDS: Enoxaparin 30 MG/0.3 ML Syringe SC (11:19)
[2020-09-29] MEDS: Menthol/Lanolin/Calamine/Znox 113 GM Tube 1 APPLIC TOPICAL (11:20)
[2020-09-29] MEDS: Linezolid 600 MG 600 MG/300 ML BAG 200 MG IV (11:58)
--- NOTE | 2020-10-01 14:42 | CASEMGMT ---
LIAM VAZQUEZ Discharge Follow-up Phone Call: JUDA[place]ale: 12 Strata: 3 Call Date: 10/01/20 Discharge Date: 09/29/20 Time of Call: 1440 Duration: 3 min Admitting Diagnosis: lap robotic cyst prostatectomy, post op ileus LIAM VAZQUEZ completed follow-up phone call after recent hospitalization. Patient states he is doing well and had no questions or concerns regarding discharge instructions. Patient states he made a follow-up appt with Dr. Matthew. Patient states that [facility] has been in touch with patient. Patient had no further questions or concerns at this time.
[2020-10-01 15:17] LABS: Pathologist Review Reviewed
== END 2020-09-29 16:20 | disposition home or self-care (01) | DRG 653 ==
LOC: SDC 09-15 12:47 → MS3 09-15 12:47
PROVIDERS: Family Medicine; Internal Medicine; Internal Medicine Infectious Disease; Nurse Practitioner Family; Admitting Provider Urology; PCP Internal Medicine; Referring Provider Urology; Visit Provider Student in an Organized Health Care Education/Training Program
PROC: 0VT04ZZ Resection of Prostate, Percutaneous Endoscopic Approach (ICD-10-PCS; CPT 55866; principal; 2020-09-14 11:15)
DX: C67.8 Malignant neoplasm of overlapping sites of bladder (principal); N17.0 Acute kidney failure with tubular necrosis; K40.30 Unilateral inguinal hernia, with obstruction, without gangrene, not specified as recurrent; K91.89 Other postprocedural complications and disorders of digestive system; K56.0 Paralytic ileus; N18.4 Chronic kidney disease, stage 4 (severe); E87.0 Hyperosmolality and hypernatremia; N13.1 Hydronephrosis with ureteral stricture, not elsewhere classified; R31.0 Gross hematuria; K66.0 Peritoneal adhesions (postprocedural) (postinfection); E87.6 Hypokalemia; I95.89 Other hypotension; I12.9 Hypertensive chronic kidney disease with stage 1 through stage 4 chronic kidney disease, or unspecified chronic kidney disease; D72.829 Elevated white blood cell count, unspecified; E78.00 Pure hypercholesterolemia, unspecified; I49.3 Ventricular premature depolarization; Z53.31 Laparoscopic surgical procedure converted to open procedure; Z79.899 Other long term (current) drug therapy; Z87.891 Personal history of nicotine dependence; Z20.828 Contact with and (suspected) exposure to other viral communicable diseases
CPT/HCPCS: 36415; 36569; 71045; 71046; 74018; 74176; 74250; 76770; 80048; 80053; 80076; 82570; 82962; 83735; 84100; 84300; 84478; 84484; 85025; 85027; 86850; 86900; 86901; 86920; 87040; 87070; 87077; 87086; 87088; 87186; 87205; 87426; 87493; 88302; 88305; 88307; 88309; 88341; 88342; 93005; 97110; 97116; 97162; 97165; 97530; 97535; 97802; 97803; C9803; J2020; J7030; J7040; J7120; P9016; A4216; C1769; C1781; C2617; J0744; J2405; J3490; J7799

== ENCOUNTER 2020-12-01 12:17 | Inpatient (IN) | payer MEDICARE, OTHER, SELFPAY ==
[2020-09-28 10:52] VITALS: BMI 34.0
[2020-12-01] VITALS (8 sets, daily range): BP systolic 90–112; BP diastolic 48–87; PULSE 88–110; RESP 15–25; TEMP 36.1–36.8; O2SAT 93–99; BMI 30.4
--- NOTE | 2020-12-01 12:27 | EKG12_ITS ---
Test Reason : WEAKNESS Blood Pressure : / mmHG Vent. Rate : 094 BPM Atrial Rate : 094 BPM P-R Int : 192 ms QRS Dur : 090 ms QT Int : 346 ms P-R-T Axes : 000 -59 062 degrees QTc Int : 432 ms Sinus rhythm with Premature supraventricular complexes and with frequent Premature ventricular comple xes Left axis deviation Septal infarct , age undetermined Inferior infarct , age undetermined Abnormal ECG Confirmed by LILLY GARCIA, AMY ([id number]), rewrite editor REGINALDO ERNST ([id number]) on 12/04/2020 11:25:27 AM Referred By: SHIRLEY Confirmed By:AMY CARR MD
--- NOTE | 2020-12-01 12:30 | RAD_ITS ---
STUDY: X-RAY CHEST REASON FOR EXAM: Male, 80 years old. Increased weakness TECHNIQUE: Single AP portable view of the chest. COMPARISON: 09/26/2020. FINDINGS: There is hyperinflation of the lungs consistent with chronic obstructive lung disease (COPD). No focal infiltrate is seen. There is no demonstrated pleural abnormality. Normal size heart. Normal mediastinum and alvino. Normal visualized pulmonary arteries. There is atherosclerotic calcification of the aortic arch with tortuosity. Stable osseous structures. There is no demonstrated abnormality of the visualized soft tissue structures of the upper abdomen. RAD/Chest 1 View (Portable) IMPRESSION: No active pulmonary disease. Electronically Signed: Santi Alvares MD at 12:47 EST Tel , Service support ,
[2020-12-01 12:33] LABS: Absolute Lymphocyte Count 1.83 X10^3/uL (0.83-4.51); Absolute Neutrophil Count 19.1 X10^3/uL (2.0-7.7); Basophil# 0.05 X10^3/uL; Basophil% 0.2 % (0-1); Eosinophil# 0.01 X10^3/uL; Hematocrit 29.8 % (40-54); Hemoglobin 8.8 g/dL (13.0-16.5); Lymphocyte # 1.83 X10^3/ul (4.0); Lymphocyte % 6.3 % (19-41); Mean Corp Hgb Conc 29.5 g/dL (32-36); Mean Corpuscular Hgb 23.8 pg (27.0-32.0); Mean Corpuscular Volume 80.8 fL (80-94); Mean Platelet Vol. 10.4 fl (6.2-12.0); Monocyte# 7.85 X10^3/uL; NRBC Flagged by Analyzer 0 % (0-5); Neutrophil # 19.08 X10^3/uL (2.7-7.7); Neutrophil % 65.7 % (47-70); POSITIVE DIFFERENTIAL YES; POSITIVE MORPHOLOGY YES; Platelet Count 276 K/mm3 (150-450); RBC Distribution Width CV 16.9 % (11.6-14.6); RBC Distribution Width SD 50.4 fl (35.1-43.9); Red Blood Count 3.69 M/mm3 (4.6-6.2); White Blood Count 29.1 K/mm3 (4.4-11.0)
[2020-12-01 12:34] LABS: Differential Indicated SCAN CRITERIA MET
--- NOTE | 2020-12-01 12:34 | ED.VISSUMM ---
- ER Visit Summary Date of Service: 12/01/20 Chief Complaint: Weakness History of Present Illness: The patient is a [address] Torres and Dr. Matthew. He has a history of bladder cancer and was admitted to the hospital in September 2020 and had a prostatectomy, ileal conduit, and TURP. Reports that he has weakness that began yesterday. Patient reports that he has had several episodes of diarrhea that began yesterday. States that he is so weak that he is unable to stand. He denies any fever, chills, sore throat, cough, chest pain, or shortness of breath. No abdominal pain, nausea, or vomiting. No rash or headache. No paresthesias. Physical Examination: Vitals: 96.9, 91/59, 97, 20, 99% on room air which is not hypoxic General: Well-nourished and well-developed. Head: Normocephalic atraumatic. Neck: Supple, no lymphadenopathy. No JVD. Nontender. Cardiovascular: Irregular rhythm with a 2 out of 6 systolic murmur. Respiratory: No respiratory distress. Clear to auscultation bilaterally. Abdominal: Soft, nontender, nondistended, hyperactive bowel sounds. No guarding, rebound, or peritoneal signs. Back: Nontender. Extremities: Nontender, no edema. Skin: Normal color, no rash. Neurologic: Alert and oriented ?3. Cranial nerves II through XII are intact. Normal strength and sensation. Psych: Normal affect. Test Results: CBC shows a white count of 29.1, H&H of 8.8 and 29.8, second neutrophils of 6, monocytes 27. Chem-7 shows a chloride of 108, CO2 of 15, glucose 108, BUN is 78, creatinine is 6.80. Creatinine in 2019 was 1.67?5.33. LFTs show an albumin of 2.5, globin of 5.3. INR is 1.5. PTT is 35.0. Troponin is negative. Lactic acid is 1.2. COVID-19 is negative. Clinical Impression(s) from Imaging Studies Chest X-Ray 12/01/20 12:30 IMPRESSION: No active pulmonary disease. Electronically Signed: Santi Alvares MD at 12:47 EST Tel , Service support , Emergency Department Course and Treatment: Patient had an IV placed. He is given 500 cc bolus of normal saline. He refused pain or nausea medications. Patient has an ileal conduit. He has not had any urine output at this point. He is given another 500 cc bolus of normal saline. His white count is chronically elevated. He has not seen an oncologist. Raises the concern of CML. He was not given antibiotics after discussion with the hospitalist. Treatment Plan: Patient we discussed the hospitalist admitted for further evaluation and treatment. Disposition: Admitted in serious condition. Impression: 1. Acute on chronic renal insufficiency. 2. Leukocytosis. 3. Ileal conduit. 4. Anemia. This note was generated with [employer] dictation software. It may contain incorrect words, spelling, and punctuation that were not noted in review of the chart prior to signing ED Disposition - Plan for ED Patient: Referrals: Kim Torres MD [Primary Care Provider] -
[2020-12-01 12:43] LABS: International Normalized Ratio 1.5; Prothrombin Time (Protime)PT. 17.7 SECONDS (11.7-14.9)
[2020-12-01 12:50] LABS: ALB/GLOB Ratio 0.5 RATIO (0.9-2.4); AST(SGOT) 20 U/L (15-37); Alanine Aminotransfer ALT/SGPT 17 U/L (16-61); Albumin, Serum 2.5 g/dL (3.2-5.0); Alkaline Phosphatase 91 U/L (45-117); Anion Gap 13 (5-15); BUN 78 mg/dL (7-18); BUN/Creat Ratio 11.5 RATIO (10-20); Calcium,Total 9.5 mg/dL (8.5-10.1); Chloride 108 mmol/L (98-107); EST Glomerular Filtration Rate 8 mL/min (>60); Est Glom Filt Rate - Afr Amer 10 mL/min (>60); Estimated Creatinine Clearance 9.07 ml/min; Globulin 5.3 g/dL (2.2-4.2); Glucose 108 mg/dL (74-106); Potassium 4.2 mmol/L (3.5-5.1); Protein, Total 7.8 g/dL (6.4-8.2); Sodium Level 136 mmol/L (136-145)
[2020-12-01 13:08] LABS: Hypochromasia 2+; Platelet Estimate ADEQUATE (ADEQ)
[2020-12-01 13:14] LABS: Lactic Acid 1.2 mmol/L (0.4-1.9)
[2020-12-01 14:40] LABS: Mucous, Urine 0 SEEN /hpf (<or=2+); Red Blood Cells-Urine 0 SEEN /hpf (0-5); Squamous Epithelial Cells - UA 0 SEEN /hpf (0-5)
--- NOTE | 2020-12-01 14:42 | NURSING ---
MED SURG [facility] ACUTE ON CHRONIC RENAL [place]
[2020-12-01 14:50] LABS: Color, Urine Brown (Yellow); Glucose, Dipstick Normal (Normal); Ketone-Dipstick 5 mg/dl (Negative); Leukocyte Esterase-Dipstick 500 /ul (Negative); Nitrite-Dipstick Negative (Negative); Occult Blood-Urine 250 /ul (Negative); Protein-Dipstick 500 mg/dl (Negative); Specific Gravity, Urine 1.015 (1.002-1.030); Urine Bilirubin Dipstick Negative (Negative); Urine Clarity Turbid (Clear); Urine Urobilinogen Normal (Normal); Urine pH 6.5 (5.0 - 8.0)
[2020-12-01 14:58] LABS: Bacteria 2+ /hpf (None Seen); White Blood Cells >100 SEEN /hpf (0-5)
--- NOTE | 2020-12-01 15:01 | US_ITS ---
EXAM: US RETROPERITONEAL COMPLETE, RENAL CLINICAL INDICATION: MERLE -- HX OF BLADDER CA AND BLADDERECTOMY 2019 TECHNIQUE: Grayscale and color Doppler sonographic evaluation of the retroperitoneum was performed. This report was created using [employer] report generation technology. COMPARISON: 09/17/2020 FINDINGS: RIGHT KIDNEY: Moderate right hydronephrosis with dilated proximal ureter. Right renal cortical thinning. No shadowing calculus. No perinephric collection is demonstrated. LEFT KIDNEY: Moderate left hydronephrosis with dilated proximal ureter. Left renal cortical thinning. No shadowing calculus. No perinephric collection is demonstrated. BLADDER: No acute findings. OTHER FINDINGS: The spleen is enlarged measuring up to 13.1 cm. US/Kidney and Bladder IMPRESSION: Stable bilateral hydronephrosis. Electronically Signed: Cecil Newton MD (Brooks) at 16:33 EST , Service support ,
--- NOTE | 2020-12-01 15:08 | HP.PCM_ITS ---
Problem List (1) MERLE (acute kidney injury) Status: Acute (2) Debility Status: Acute (3) Gross hematuria Status: Acute (4) Bladder tumor Status: Chronic (5) Bladder cancer Status: Chronic Qualifiers: Bladder location: unspecified site Qualified Code(s): C67.9 - Malignant neoplasm of bladder, unspecified (6) Leukocytosis Status: Chronic Qualifiers: Leukocytosis type: unspecified Qualified Code(s): D72.829 - Elevated white blood cell count, unspecified History of Present Illness Date of Admission: 12/01/20 Chief Complaint: weakness The patient is a 80 year old M presents with weakness. For the past week, patient has not been eating much just pain does not have much in the way of an appetite. Yesterday, he had a follow-up appointment with urology and on his way back from his appointment he just felt very weak and in his legs and barely made it back to his car. Today, the patient was just feeling worse, had decreased output from his ileostomy and was having vomiting. He presented to the emergency room for evaluation. Patient was noted to have a white count of 29.1, however this appears to be stable since September of last year. Creatinine was noted to be extremely high at 6.8, it was 2.1 back in September. Patient in September he underwent a radical cystoscopy prostatectomy, bilateral pelvic node dissections and a right inguinal hernia repair. Patient had a complicated hospitalization with a prolonged ileus, leukocytosis and acute kidney injury. Patient's creatinine went up to 5.33 but did trend down to the 2 range. Patient's last creatinine was from September 29. He was eventually discharged home. [] Past Medical History Past Medical History (Chronic Problems): Chronic Problems (Last Reviewed 12/01/20 @ 15:[address] Radames Duke DO) Bladder tumor (Chronic) Bladder cancer (Chronic) Leukocytosis (Chronic) Medical History: Medical History (Last Reviewed 12/01/20 @ 15:[address] 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 remove stone CKD (chronic kidney disease) stage 3, GFR 30-59 ml/min N18.30 HTN (hypertension) I10 Allergies atenolol Adverse Reaction (Verified 12/01/20 12:20) hypotension HYPOTENSION tamsulosin [From Flomax] Adverse Reaction (Verified 12/01/20 12:20) PT UNSURE OF REACTION passed out Home Medications: Ambulatory Orders Medication Instructions Recorded Losartan Potassium [Cozaar] 50 mg PO DAILY 05/01/16 Simvastatin [Zocor] 10 mg PO QHS 05/01/16 Aspirin [Aspirin, Baby] 81 mg PO DAILY@0800 05/01/19 Multivitamin [Daily Value] 1 ea PO DAILY 12/11/19 Vit C/E/Zn/Coppr/Lutein/Zeaxan 1 ea PO BID 12/11/19 [Preservision Areds 2 Softgel] Metoprolol Tartrate [Lopressor 25 mg PO BID #60 tab 12/13/19 (beta neetu)] Linezolid 600 mg PO BID #20 tab 09/29/20 Lorazepam [Ativan] 0.5 mg PO DAILY PRN PRN 11/30/20 Megestrol Acetate 20 mg PO BID 11/30/20 Ondansetron [Ondansetron Odt] 8 mg PO Q6H PRN 11/30/20 Vit A/Vit C/Vit E/Zinc/Copper 1 cap PO BID 12/01/20 [Preservision Areds Softgel] Surgical History: Surgical History (Last Reviewed 12/01/20 @ 15:[address] Radames Duke, DO) History of cystoscopy Z98.890 2015, 05/06/19 TURBT >5cm 08/22/2020, 02/04/2019 TURP 2016, 2006 Surgical History: TURP Psychiatric History: No pertinent psych hx Smoking Status: Former smoker - *Family History Maternal History Items: No pertinent history Review of Systems Constitutional: Reports: Anorexia, Malaise, Weakness. Denies: Chills, Fever Eyes: Denies: Blurred vision, Double vision HEENT: Denies: Head Aches, Sinus Congestion, Sinus Drainage Cardiovascular: Denies: Chest Pain, Palpitations Respiratory: Denies: Cough, Shortness of breath at rest, Sputum production Gastrointestinal: Reports: Nausea. Denies: Abdominal Pain, Vomiting Genitourinary: Reports: - - Decreased urine output from ileostomy Skin: Denies: Dryness Neurological: Denies: Numbness, Tingling, Focal weakness Psychiatric: Denies: Anxiety, Depression Hematologic/ Lymphatic: Denies: Easy Bruising, Easy Bleeding, Hx of blood clot Comment: All review of systems were negative except as mentioned above in the history of present illness and the other review of systems. VTE Information - Inpt Only VTE Present on Admission: No VTE Mechan Device Prophylaxis: None VTE Pharm Prophylaxis ordered?: Yes Patient Problems: Active and Suspected Problems (Last Reviewed 12/01/20 @ 15:[address] Radames Duke, DO) Gross hematuria (Acute) MERLE (acute kidney injury) (Acute) Debility (Acute) - Physical Exam Vitals/I&O's: Vital Signs Temp Pulse Resp BP Pulse Ox 36.1 C L 91 15 111/87 H 98 12/01/20 14:00 12/01/20 14:00 12/01/20 14:00 12/01/20 14:00 12/01/20 14:00 Oxygen Delivery Method Room Air Weight: 99 kg Body Mass Index (BMI) 30.4 General: Alert, Cooperative, No apparent distress HEENT: Atraumatic, Normocephalic Oral: Moist Mucosa, No Gingival or Mucosal Lesions/ Ulcerations Neck: No Nodes, Thyroid Normal Size and Texture Lungs: Clear to auscultation, Normal air movement, No rhonchi, No wheeze, No rales Cardiovascular: Regular rate, Regular Rhythm, Normal S1, Normal S2, No murmurs Abdomen: Bowel Sounds Present, Soft, Non Tender, Non-Distended, - - Ileostomy in the right lower quadrant. Midline abdominal incision is healed and well approximated. Extremities: No edema, No Calf Tenderness Skin: No rashes, No breakdown Musculoskeletal: No Tenderness to Palpation of Joints or Extremities, No Muscle Wasting Neurological: - - No clonus. 2+ DTRs in lower extremities bilaterally. Psych/Mental Status: Appropriate, Flat Affect Microbiology Past 72 Hours 12/01/20 13:00 Mucosa - Nose SARS-CoV-2 Antigen (Rapid) - Final Laboratory Results 12/01/20 12:21: WBC 29.1 H, RBC 3.69 L, Hgb 8.8 L, Hct 29.8 L, MCV 80.8, MCH 23.8 L, MCHC 29.5 L, RDW Std Deviation 50.4 H, RDW Coeff of Jeff 16.9 H, Plt Count 276, MPV 10.4, Immature Gran % (Auto) 0.800, Neut % (Auto) 65.7, Lymph % (Auto) 6.3 L, Marshall % (Auto) 27.0 H, Eos % (Auto) 0.0, Baso % (Auto) 0.2, Absolute Neuts (auto) 19.1 H, Absolute Lymphs (auto) 1.83, Nucleated RBC % 0, Diff Path Review February, Platelet Estimate ADEQUATE, Hypochromasia 2+ 12/01/20 12:21: PT 17.7 H, INR 1.5, APTT 35.0 12/01/20 12:21: Sodium 136, Potassium 4.2, Chloride 108 H, Carbon Dioxide 15.0 L , Anion Gap 13, BUN 78 H, Creatinine 6.80 H, Estim Creat Clear Calc 9.07, Est GFR (MDRD) Af Amer 10 L, Est GFR (MDRD) Non-Af 8 L, BUN/Creatinine Ratio 11.5, Glucose 108 H, Calcium 9.5, Total Bilirubin 0.30, AST 20, ALT 17, Alkaline Phosphatase 91, Troponin I < 0.015, Total Protein 7.8, Albumin 2.5 L, Globulin 5.3 H, Albumin/Globulin Ratio 0.5 L 12/01/20 12:42: Lactic Acid 1.2 12/01/20 14:31: Urine Color Brown, Urine Clarity Turbid, Urine pH 6.5, Ur Specific Gibbs 1.015, Urine Protein 500 H, Urine Glucose (UA) Normal, Urine Ketones 5 H, Urine Occult Blood 250 H, Urine Nitrite Negative, Urine Bilirubin Negative, Urine Urobilinogen Normal, Ur Leukocyte Esterase 500 H, Urine RBC 0 SEEN, Urine WBC >100 SEEN, Ur Squamous Epith Cells 0 SEEN, Urine Bacteria 2+, Urine Mucus 0 SEEN EKG personally reviewed and showed normal sinus rhythm with no acute changes though PVCs were noted. Current Medications Sodium Chloride () 500 mls @ 999 mls/hr IV .Q31M SHANE Stop: 12/01/20 15:15 Assessment/Plan All Active Problems (Last Reviewed 12/01/20 @ 15:[address] Radames Duke, DO) Gross hematuria (Acute) MERLE (acute kidney injury) (Acute) Debility (Acute) 1. Acute kidney injury Suspected versus progression of chronic kidney disease as her is been no labs since September 29 Plan: * IV fluids * Hold losartan * Check urine studies * I have ordered an ultrasound to be performed in the emergency room. If there is evidence of a mechanical obstruction then will consult urology. If not then continue with conservative measures and if no improvement then consider consulting nephrology if no significant improvement. 2. Debility For the patient's description this began suddenly. Could be related to his kidney injury versus just progression Plan * PT OT evaluate and treat 3. Leukocytosis Has been present since September Concern is for chronic leukemia but was not present back in August Plan: * Monitor for now for signs symptoms of infection * Hold off on antibiotics at this time * Oncology follow-up 4. Anemia Suspect anemia of chronic disease Has been stable since September No transfusions at this time 5. Bladder and prostate cancer Patient was to follow-up with oncology on the . This will need to be held until patient is more medically optimized. 6. VTE prophylaxis with enoxaparin 7. Advanced care planning: Discussed with the patient. Patient wishes to be DNR Comfort Care arrest no intubation Case discussed with the patient's daughter at bedside and all questions were answered. Inpatient E&M: [id number] Init Hosp L3
[2020-12-01] MEDS: 0.9% Normal Saline 1,000 ML 150 ML IV (17:26)
[2020-12-01] MEDS: Heparin Injection (Vial) 5,000 UNIT/ML VIAL 5000 UNIT SC (22:45)
[2020-12-01] MEDS: Menthol/Lanolin/Calamine/Znox 113 GM Tube 1 APPLIC TOPICAL (22:45)
[2020-12-01 22:51] LABS: Mucous, Urine 0 SEEN /hpf (<or=2+); Squamous Epithelial Cells - UA 0 SEEN /hpf (0-5)
[2020-12-01 22:57] LABS: Color, Urine Yellow (Yellow); Glucose, Dipstick Normal (Normal); Ketone-Dipstick 5 mg/dl (Negative); Leukocyte Esterase-Dipstick 500 /ul (Negative); Nitrite-Dipstick Negative (Negative); Occult Blood-Urine 250 /ul (Negative); Protein-Dipstick 500 mg/dl (Negative); Urine Bilirubin Dipstick Negative (Negative); Urine Clarity Cloudy (Clear); Urine Urobilinogen Normal (Normal)
[2020-12-01 23:11] LABS: Urine Sodium 69 mmol/L (Not Establ.)
[2020-12-01 23:19] LABS: Calcium Oxalate Crystals Ur RARE /hpf (<or=2+); Red Blood Cells-Urine > 100 SEEN /hpf (0-5); White Blood Cells 50-100 SEEN /hpf (0-5)
[2020-12-01 23:20] LABS: Amorphous Sediment 2+
[2020-12-01 23:24] LABS: Bacteria 3+ /hpf (None Seen)
[2020-12-02] VITALS (9 sets, daily range): BP systolic 94–121; BP diastolic 54–70; PULSE 73–99; RESP 16–20; TEMP 36.3–36.8; O2SAT 95–99
[2020-12-02] MEDS: 0.9% Normal Saline 1,000 ML 150 ML IV ×2 (00:15→07:14)
[2020-12-02 06:01] LABS: Absolute Lymphocyte Count 1.32 X10^3/uL (0.83-4.51); Absolute Neutrophil Count 11.1 X10^3/uL (2.0-7.7); Basophil# 0.04 X10^3/uL; Basophil% 0.2 % (0-1); Eosinophil# 0.01 X10^3/uL; Eosinophils% 0.1 % (0-5); Hematocrit 23.6 % (40-54); Hemoglobin 6.9 g/dL (13.0-16.5); Lymphocyte # 1.32 X10^3/ul (4.0); Lymphocyte % 7.9 % (19-41); Mean Corp Hgb Conc 29.2 g/dL (32-36); Mean Corpuscular Hgb 24.2 pg (27.0-32.0); Mean Corpuscular Volume 82.8 fL (80-94); Monocyte# 4.09 X10^3/uL; Monocyte% 24.5 % (0-10); NRBC Flagged by Analyzer 0 % (0-5); Neutrophil # 11.09 X10^3/uL (2.7-7.7); Neutrophil % 66.5 % (47-70); POSITIVE DIFFERENTIAL YES; Platelet Count 231 K/mm3 (150-450); RBC Distribution Width CV 17.3 % (11.6-14.6); RBC Distribution Width SD 51.9 fl (35.1-43.9); Red Blood Count 2.85 M/mm3 (4.6-6.2); White Blood Count 16.7 K/mm3 (4.4-11.0)
[2020-12-02 06:03] LABS: Differential Indicated SCAN CRITERIA MET
[2020-12-02 06:41] LABS: Anion Gap 14 (5-15); BUN 79 mg/dL (7-18); Calcium,Total 8.5 mg/dL (8.5-10.1); Chloride 112 mmol/L (98-107); EST Glomerular Filtration Rate 9 mL/min (>60); Est Glom Filt Rate - Afr Amer 10 mL/min (>60); Estimated Creatinine Clearance 9.35 ml/min; Glucose 97 mg/dL (74-106); Sodium Level 137 mmol/L (136-145); Thyroid Stim Hormone (TSH) 0.43 uIU/mL (0.358-3.74)
[2020-12-02] MEDS: Ceftriaxone 1 GM/50 ML BAG IV (07:58)
[2020-12-02] MEDS: Aspirin 81 MG TAB.CHEW PO (08:13)
[2020-12-02] MEDS: Multivitamins,Therapeutic Tablet 1 TABLET PO (08:13)
[2020-12-02] MEDS: Heparin Injection (Vial) 5,000 UNIT/ML VIAL 5000 UNIT SC ×2 (10:40→22:40)
[2020-12-02] MEDS: Menthol/Lanolin/Calamine/Znox 113 GM Tube 1 APPLIC TOPICAL ×2 (10:40→22:40)
--- NOTE | 2020-12-02 10:58 | CON.PCM_ITS ---
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 Once stent has been removed he still has [address] ultrasound done demonstrates mild bilateral hydro-, moderate hydronephrosis bilaterally not unexpected given ileal conduit. Past Medical History Past Medical History (Chronic Problems): Chronic Problems (Last Reviewed 12/01/20 @ 15:[address] Radames Duke DO) Bladder tumor (Chronic) Bladder cancer (Chronic) Leukocytosis (Chronic) Medical History: Medical History (Last Reviewed 12/02/20 @ 11:[address] 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 CKD (chronic kidney disease) stage 3, GFR 30-59 ml/min N18.30 HTN (hypertension) I10 Allergies atenolol Adverse Reaction (Verified 12/01/20 12:20) hypotension HYPOTENSION tamsulosin [From Flomax] Adverse Reaction (Verified 12/01/20 12:20) PT UNSURE OF REACTION passed out Home Medications: Ambulatory Orders Medication Instructions Recorded Losartan Potassium [Cozaar] 50 mg PO DAILY 05/01/16 Simvastatin [Zocor] 10 mg PO QHS 05/01/16 Aspirin [Aspirin, Baby] 81 mg PO DAILY@0800 05/01/19 Multivitamin [Daily Value] 1 ea PO DAILY 12/11/19 Vit C/E/Zn/Coppr/Lutein/Zeaxan 1 ea PO BID 12/11/19 [Preservision Areds 2 Softgel] Metoprolol Tartrate [Lopressor 25 mg PO BID #60 tab 12/13/19 (beta neetu)] Linezolid 600 mg PO BID #20 tab 09/29/20 Lorazepam [Ativan] 0.5 mg PO DAILY PRN PRN 11/30/20 Megestrol Acetate 20 mg PO BID 11/30/20 Ondansetron [Ondansetron Odt] 8 mg PO Q6H PRN 11/30/20 Vit A/Vit C/Vit E/Zinc/Copper 1 cap PO BID 12/01/20 [Preservision Areds Softgel] Surgical History: Surgical History (Last Reviewed 12/02/20 @ 11:[address] Aramis Matthew MD) History of cystoscopy Z98.890 2015, 05/06/19 TURBT >5cm 08/22/2020, 02/04/2019 TURP 2015, 2005 Surgical History: TURP Psychiatric History: No pertinent psych hx Smoking Status: Former smoker - *Family History Maternal History Items: No pertinent history Review of Systems Constitutional: Reports: Fever, Malaise Respiratory: Reports: Cough Gastrointestinal: Reports: Nausea Neurological: Reports: Balance problems Physical Exam - Physical Exam Vital Signs Temp 97.5 F L 12/02/20 08:05 Pulse 89 12/02/20 10:40 Resp 20 H 12/02/20 08:05 BP 103/54 L 12/02/20 10:40 Pulse Ox 95 12/02/20 08:05 Intake & Output 11/30/20 12/01/20 12/02/20 23:59 23:59 23:59 Intake Total 1250 / 1250 2156.5 / 2156.5 Output Total 200 / 200 Balance 1250 / 1150 1956. / 1956. Weight: 99 kg Intake: Oral 150 / 150 Intake, IV Amount 1100 / 1100 2156.5 / 2156. 0.9% Normal Saline 1,000 ML @ 2156. / 2156. 150 mls/hr IV .Q6H40M [facility] Rx#: [id number] 0.9% Normal Saline 500 ML @ 999 500 / 500 mls/hr IV .Q31M [facility] Rx#: [id number] 0.9% Normal Saline 500 ML @ 999 500 / 500 mls/hr IV .Q31M [facility] Rx#: [id number] Maxipime 2 GM In 0.9% Normal 100 / 100 Saline 100 ML @ 200 mls/hr IV X1 ONE Rx#:[id number] Output: Urine 200 / 200 General: Alert HEENT: Atraumatic Oral: Moist Mucosa Neck: Supple Lungs: Normal air movement Cardiovascular: Regular rate Abdomen: Soft Microbiology Past 72 Hours 12/01/20 14:31 Urine Culture - Preliminary Urine, Cystoscopy Gram negative bertin Staphylococcus species 12/01/20 13:00 SARS-CoV-2 Antigen (Rapid) - Final Mucosa - Nose Laboratory Tests Past 24 Hrs 12/01/20 12/01/20 12/01/20 12:21 12:21 12:21 WBC 29.1 H RBC 3.69 L Hgb 8.8 L Hct 29.8 L MCV 80.8 MCH 23.8 L MCHC 29.5 L RDW Std Deviation 50.4 H RDW Coeff of Jeff 16.9 H Plt Count 276 MPV 10.4 Immature Gran % (Auto) 0.800 Neut % (Auto) 65.7 Lymph % (Auto) 6.3 L [place]y % (Auto) 27.0 H Eos % (Auto) 0.0 Baso % (Auto) 0.2 Absolute Neuts (auto) 19.1 H Absolute Lymphs (auto) 1.83 Nucleated RBC % 0 Diff Path Review May foll Platelet Estimate ADEQUATE Hypochromasia 2+ Eos Smear Total Cells PT 17.7 H INR 1.5 APTT 35.0 Sodium 136 Potassium 4.2 Chloride 108 H Carbon Dioxide 15.0 L Anion Gap 13 BUN 78 H Creatinine 6.80 H Estim Creat Clear Calc 9.07 Est GFR (MDRD) Af Amer 10 L Est GFR (MDRD) Non-Af 8 L BUN/Creatinine Ratio 11.5 Glucose 108 H Lactic Acid Calcium 9.5 Total Bilirubin 0.30 AST 20 ALT 17 Alkaline Phosphatase 91 Troponin I < 0.015 Total Protein 7.8 Albumin 2.5 L Globulin 5.3 H Albumin/Globulin Ratio 0.5 L TSH Urine Color Urine Clarity Urine pH Ur Specific [place] Urine Protein Urine Glucose (UA) Urine Ketones Urine Occult Blood Urine Nitrite Urine Bilirubin Urine Urobilinogen Ur Leukocyte Esterase Urine RBC Urine WBC Ur Squamous Epith Cells Calcium Oxalate Crystal Amorphous Sediment Urine Bacteria Urine Mucus Ur Random Sodium Urine Creatinine 12/01/20 12/01/20 12/01/20 12:42 14:31 22:34 WBC RBC Hgb Hct MCV MCH MCHC RDW Std Deviation RDW Coeff of Jeff Plt Count MPV Immature Gran % (Auto) Neut % (Auto) Lymph % (Auto) R[place]y % (Auto) Eos % (Auto) Baso % (Auto) Absolute Neuts (auto) Absolute Lymphs (auto) Nucleated RBC % Diff Path Review Platelet Estimate Hypochromasia Eos Smear Total Cells PT INR APTT Sodium Potassium Chloride Carbon Dioxide Anion Gap BUN Creatinine Estim Creat Clear Calc Est GFR (MDRD) Af Amer Est GFR (MDRD) Non-Af BUN/Creatinine Ratio Glucose Lactic Acid 1.2 Calcium Total Bilirubin AST ALT Alkaline Phosphatase Troponin I Total Protein Albumin Globulin Albumin/Globulin Ratio TSH Urine Color Brown Yellow Urine Clarity Turbid Cloudy Urine pH 6.5 7.0 Ur Specific [place] 1.015 1.010 Urine Protein 500 H 500 H Urine Glucose (UA) Normal Normal Urine Ketones 5 H 5 H Urine Occult Blood 250 H 250 H Urine Nitrite Negative Negative Urine Bilirubin Negative Negative Urine Urobilinogen Normal Normal Ur Leukocyte Esterase 500 H 500 H Urine RBC 0 SEEN > 100 SEEN Urine WBC >100 SEEN 50-100 SEEN Ur Squamous Epith Cells 0 SEEN 0 SEEN Calcium Oxalate Crystal RARE Amorphous Sediment 2+ Urine Bacteria 2+ 3+ Urine Mucus 0 SEEN 0 SEEN Ur Random Sodium Urine Creatinine 12/01/20 12/02/20 12/02/20 22:34 05:20 05:20 WBC 16.7 H RBC 2.85 L Hgb 6.9 L Hct 23.6 L MCV 82.8 MCH 24.2 L MCHC 29.2 L RDW Std Deviation 51.9 H RDW Coeff of Jeff 17.3 H Plt Count 231 MPV 11.0 Immature Gran % (Auto) 0.800 Neut % (Auto) 66.5 Lymph % (Auto) 7.9 L Ripley % (Auto) 24.5 H Eos % (Auto) 0.1 Baso % (Auto) 0.2 Absolute Neuts (auto) 11.1 H Absolute Lymphs (auto) 1.32 Nucleated RBC % 0 Diff Path Review May foll Platelet Estimate Hypochromasia Eos Smear Total Cells PT INR APTT Sodium 137 Potassium 4.0 Chloride 112 H Carbon Dioxide 11.0 L Anion Gap 14 BUN 79 H Creatinine 6.60 H Estim Creat Clear Calc 9.35 Est GFR (MDRD) Af Amer 10 L Est GFR (MDRD) Non-Af 9 L BUN/Creatinine Ratio 12.0 Glucose 97 Lactic Acid Calcium 8.5 Total Bilirubin AST ALT Alkaline Phosphatase Troponin I Total Protein Albumin Globulin Albumin/Globulin Ratio TSH 0.43 Urine Color Urine Clarity Urine pH Ur Specific [place] Urine Protein Urine Glucose (UA) Urine Ketones Urine Occult Blood Urine Nitrite Urine Bilirubin Urine Urobilinogen Ur Leukocyte Esterase Urine RBC Urine WBC Ur Squamous Epith Cells Calcium Oxalate Crystal Amorphous Sediment Urine Bacteria Urine Mucus Ur Random Sodium 69 Urine Creatinine 133.00 12/02/20 08:17 WBC RBC Hgb Hct MCV MCH MCHC RDW Std Deviation RDW Coeff of Jeff Plt Count MPV Immature Gran % (Auto) Neut % (Auto) Lymph % (Auto) [place] % (Auto) Eos % (Auto) Baso % (Auto) Absolute Neuts (auto) Absolute Lymphs (auto) Nucleated RBC % Diff Path Review Platelet Estimate Hypochromasia Eos Smear Total Cells Pending PT INR APTT Sodium Potassium Chloride Carbon Dioxide Anion Gap BUN Creatinine Estim Creat Clear Calc Est GFR (MDRD) Af Amer Est GFR (MDRD) Non-Af BUN/Creatinine Ratio Glucose Lactic Acid Calcium Total Bilirubin AST ALT Alkaline Phosphatase Troponin I Total Protein Albumin Globulin Albumin/Globulin Ratio TSH Urine Color Urine Clarity Urine pH Ur Specific [place] Urine Protein Urine Glucose (UA) Urine Ketones Urine Occult Blood Urine Nitrite Urine Bilirubin Urine Urobilinogen Ur Leukocyte Esterase Urine RBC Urine WBC Ur Squamous Epith Cells Calcium Oxalate Crystal Amorphous Sediment Urine Bacteria Urine Mucus Ur Random Sodium Urine Creatinine Assessment/Plan All Active Problems (Last Reviewed 12/01/20 @ 15:[address] Radames Duke, DO) Gross hematuria (Acute) MERLE (acute kidney injury) (Acute) Debility (Acute) Dehydration (Acute) Urinary tract infection (Acute) 80-year-old male who underwent radical cystectomy for advanced bladder cancer positive lymph nodes postoperatively had a long course of recovery, he is too weak to undergo any adjuvant therapy for his advanced cancer. Presented to the hospital after instructions to go to the emergency room for elevated white blood count of 20,000+ apparently has a urinary tract infection probably pyelonephritis, acute kidney injury with rising creatinine. Ultrasound with bilateral hydro but not unexpected with his ileal conduit only way to rule out obstruction would be to do a loopogram. He is making better urine output I think we can watch his creatinine that should improve with time also continue with IV antibiotics to treat the urinary tract infection. Hopefully with the correction of his infection creatinine his malaise will improve and his dietary intake will improve. For now no intervention from my standpoint but I will see him tomorrow continue to follow his progress his creatinine should improve with rehydration. He does have some anemia probably chronic question is whether he should get a blood transfusion I will leave that up to the medical service. We will continue to follow him daily.
--- NOTE | 2020-12-02 12:22 | PN_ITS ---
Patient Problems: Active and Suspected Problems (Last Reviewed 12/02/20 @ 11:[address] Aramis Matthew MD) Gross hematuria (Acute) MERLE (acute kidney injury) (Acute) Debility (Acute) Dehydration (Acute) Urinary tract infection (Acute) Subjective: Feels well. No shortness of breath. 200cc of urine overnight. Vitals/I&O's: Vital Signs Temp Pulse Resp BP Pulse Ox 36.4 C L 89 20 H 103/54 L 95 12/02/20 08:05 12/02/20 10:40 12/02/20 08:05 12/02/20 10:40 12/02/20 08:05 Oxygen Delivery Method Room Air Weight: 99 kg Body Mass Index (BMI) 30.4 Intake and Output for Last 24 Hours 11/30/20 12/01/20 12/02/20 23:59 23:59 23:59 Intake Total 1250 / 1250 2157.5 / 2157.5 Output Total 200 / 200 Balance 1250 / 1150 1957.5 / 1957.5 General: Alert, No apparent distress HEENT: Atraumatic, Normocephalic Oral: Moist Mucosa, No Gingival or Mucosal Lesions/ Ulcerations Neck: No Nodes, Thyroid Normal Size and Texture Lungs: Clear to auscultation, Normal air movement, No rhonchi, No wheeze, No rales Cardiovascular: Regular rate, Regular Rhythm, Normal S1, Normal S2, No murmurs Abdomen: Bowel Sounds Present, Soft, Non Tender, Non-Distended, No Hepato- splenomegaly, - - ileostomy RLQ w scant urine Extremities: No Calf Tenderness, Edema Musculoskeletal: No Tenderness to Palpation of Joints or Extremities, No Muscle Wasting Psych/Mental Status: Normal Affect, Appropriate Microbiology Past 72 Hours 12/01/20 14:31 Urine, Cystoscopy Urine Culture - Preliminary Gram negative bertin Staphylococcus species 12/01/20 13:00 Mucosa - Nose SARS-CoV-2 Antigen (Rapid) - Final Laboratory Results 12/01/20 12:21: WBC 29.1 H, RBC 3.69 L, Hgb 8.8 L, Hct 29.8 L, MCV 80.8, MCH 23.8 L, MCHC 29.5 L, RDW Std Deviation 50.4 H, RDW Coeff of Jeff 16.9 H, Plt Count 276, MPV 10.4, Immature Gran % (Auto) 0.800, Neut % (Auto) 65.7, Lymph % (Auto) 6.3 L, [place] % (Auto) 27.0 H, Eos % (Auto) 0.0, Baso % (Auto) 0.2, Absolute Neuts (auto) 19.1 H, Absolute Lymphs (auto) 1.83, Nucleated RBC % 0, Diff Path Review February, Platelet Estimate ADEQUATE, Hypochromasia 2+ 12/01/20 12:21: PT 17.7 H, INR 1.5, APTT 35.0 12/01/20 12:21: Sodium 136, Potassium 4.2, Chloride 108 H, Carbon Dioxide 15.0 L , Anion Gap 13, BUN 78 H, Creatinine 6.80 H, Estim Creat Clear Calc 9.07, Est GFR (MDRD) Af Amer 10 L, Est GFR (MDRD) Non-Af 8 L, BUN/Creatinine Ratio 11.5, Glucose 108 H, Calcium 9.5, Total Bilirubin 0.30, AST 20, ALT 17, Alkaline Phosphatase 91, Troponin I < 0.015, Total Protein 7.8, Albumin 2.5 L, Globulin 5.3 H, Albumin/Globulin Ratio 0.5 L 12/01/20 12:42: Lactic Acid 1.2 12/01/20 14:31: Urine Color Brown, Urine Clarity Turbid, Urine pH 6.5, Ur Specific [place] 1.015, Urine Protein 500 H, Urine Glucose (UA) Normal, Urine Ketones 5 H, Urine Occult Blood 250 H, Urine Nitrite Negative, Urine Bilirubin Negative, Urine Urobilinogen Normal, Ur Leukocyte Esterase 500 H, Urine RBC 0 SEEN, Urine WBC >100 SEEN, Ur Squamous Epith Cells 0 SEEN, Urine Bacteria 2+, Urine Mucus 0 SEEN 12/01/20 22:34: Urine Color Yellow, Urine Clarity Cloudy, Urine pH 7.0, Ur Specific [place] 1.010, Urine Protein 500 H, Urine Glucose (UA) Normal, Urine Ketones 5 H, Urine Occult Blood 250 H, Urine Nitrite Negative, Urine Bilirubin Negative, Urine Urobilinogen Normal, Ur Leukocyte Esterase 500 H, Urine RBC > 100 SEEN, Urine WBC 50-100 SEEN, Ur Squamous Epith Cells 0 SEEN, Calcium Oxalate Crystal RARE, Amorphous Sediment 2+, Urine Bacteria 3+, Urine Mucus 0 SEEN 12/01/20 22:34: Ur Random Sodium 69, Urine Creatinine 133.00 12/02/20 05:20: WBC 16.7 H, RBC 2.85 L, Hgb 6.9 L, Hct 23.6 L, MCV 82.8, MCH 24.2 L, MCHC 29.2 L, RDW Std Deviation 51.9 H, RDW Coeff of Jeff 17.3 H, Plt Count 231, MPV 11.0, Immature Gran % (Auto) 0.800, Neut % (Auto) 66.5, Lymph % (Auto) 7.9 L, [place] % (Auto) 24.5 H, Eos % (Auto) 0.1, Baso % (Auto) 0.2, Absolute Neuts (auto) 11.1 H, Absolute Lymphs (auto) 1.32, Nucleated RBC % 0, Diff Path Review February12/02/20 05:20: Sodium 137, Potassium 4.0, Chloride 112 H, Carbon Dioxide 11.0 L , Anion Gap 14, BUN 79 H, Creatinine 6.60 H, Estim Creat Clear Calc 9.35, Est GFR (MDRD) Af Amer 10 L, Est GFR (MDRD) Non-Af 9 L, BUN/Creatinine Ratio 12.0, Glucose 97, Calcium 8.5, TSH 0.43 12/02/20 08:17: Eos Smear Total Cells Pending Current Medications Acetaminophen (Acetaminophen 325 Mg Tablet) 650 mg PO Q6H PRN PRN PRN Reason: Pain Score 1-10/Temp > 100.7 F Aspirin (Aspirin 81 Mg Tab.Chew) 81 mg PO DAILY@0800 [facility] Last Admin: 12/02/20 08:13 Dose: 81 mg Documented by: Calamine/Phenol (Menthol/Lanolin/Calamine/Znox 113 Gm Tube) 1 applic TOPICAL BID [facility]; Protocol Last Admin: 12/02/20 10:40 Dose: 1 applicatio Documented by: Heparin Sodium (Porcine) (Heparin Injection (Vial) 5,000 Unit/Ml Vial) 5,000 unit SC Q12 [facility] Last Admin: 12/02/20 10:40 Dose: 5,000 unit Documented by: Ceftriaxone Sodium (Rocephin) 1 gm in 50 mls @ 100 mls/hr IV Q24 [facility] Last Admin: 12/02/20 07:58 Dose: 100 mls/hr Documented by: Sodium Bicarbonate 150 meq/ (Sodium Chloride) 1,150 mls @ 125 mls/hr IV .Q9H12M [facility] Last Admin: 12/02/20 09:06 Dose: 125 mls/hr Documented by: Lorazepam (Lorazepam 0.5 Mg Tablet) 0.5 mg PO DAILY PRN PRN PRN Reason: ANXIETY Metoprolol Tartrate (Metoprolol Tartrate 25 Mg Tablet) 25 mg PO BID [facility] Last Admin: 12/02/20 10:40 Dose: Not Given Documented by: Multivitamins (Multivitamins,Therapeutic Tablet) 1 tablet PO DAILYCM [facility] Last Admin: 12/02/20 08:13 Dose: 1 tablet Documented by: Nutritional Formula (Lactose Free) (Glucerna Shake 120 Ml Liquid) 120 ml PO TIDCM [facility] Last Admin: 12/02/20 08:14 Dose: Not Given Documented by: Ondansetron HCl (Ondansetron 4 Mg/2 Ml Vial) 4 mg IV Q8H PRN PRN PRN Reason: NAUSEA/VOMITING Oxycodone HCl (Oxycodone 5 Mg Tablet) 5 mg PO Q4H PRN PRN PRN Reason: Pain Score 6-10 Sodium Chloride (0.9% Saline Lock 10 Ml Syringe) 10 - 40 ml IV UD PRN PRN Reason: SALINE FLUSH STROKE Vital Signs/Narrative: Vital Signs Pulse BP 12/02/20 10:40 89 103/54 L Medical Necessity - Tobacco Use Smoking Status: Former smoker Assessment/Plan All Active Problems (Last Reviewed 12/02/20 @ 11:[address] Aramis Matthew MD) Gross hematuria (Acute) MERLE (acute kidney injury) (Acute) Debility (Acute) Dehydration (Acute) Urinary tract infection (Acute) 1. Acute kidney injury ongoing despite IVF FENa 2.5% Suspected ATN versus progression of chronic kidney disease as her is been no labs since September 29 US showed stable hydronephrosis DW , who saw and plan is for conservative mgmt as it appears urine outpt has increased this AM [facility] nephrology who will see today. 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 Plan: * IV fluids * Hold losartan 2. Debility For the patient's description this began suddenly. Could be related to his acute issues versus just progression Plan * PT OT evaluate and treat 3. Leukocytosis Has been present since September Concern is for chronic leukemia but was not present back in August Plan: * Monitor for now for signs symptoms of infection * Hold off on antibiotics at this time * Oncology follow-up 4. Anemia Chronic TSH normal at 0.43 Plan: * transfuse 1 unit * check B12, folate, and iron studies 5. UTI Polymicrobial with GNR and S. aureus Plan: * start CTX and vanc * follow up cultures and adjust abx based on Cx results. 6. Bladder and prostate cancer Patient was to follow-up with oncology on the . This will need to be held until patient is more medically optimized. 6. VTE prophylaxis change to SCDs 7. Advanced care planning: Discussed with the patient. Patient wishes to be DNR Comfort Care arrest no intubation Greater than 40 minutes of which greater than 50% of time was coordinating care in regards to consulting urology and nephrology and discussing the case with both of the specialist. Inpatient E&M: [id number] [facility] H[facility] L3
--- NOTE | 2020-12-02 13:10 | PHA.PHARE_ITS ---
Consult Pharmacy has been consulted to manage selected antiobiotic: Vancomycin Type of Consult: New start Suspected Infection: Other Labs: Sodium 137 mmol/L (136-145) 12/02/20 05:20 Potassium 4.0 mmol/L (3.5-5.1) 12/02/20 05:20 Chloride 112 mmol/L (98-107) H 12/02/20 05:20 Carbon Dioxide 11.0 mmol/L (21.0-32.0) L 12/02/20 05:20 Anion Gap 14 (5-15) 12/02/20 05:20 BUN 79 mg/dL (7-18) H 12/02/20 05:20 Creatinine 6.60 mg/dL (0.70-1.30) H 12/02/20 05:20 Est GFR (MDRD) Af Amer 10 mL/min (>60) L 12/02/20 05:20 Est GFR (MDRD) Non-Af 9 mL/min (>60) L 12/02/20 05:20 BUN/Creatinine Ratio 12.0 RATIO (10-20) 12/02/20 05:20 Glucose 97 mg/dL (74-106) 12/02/20 05:20 Microbiology: Microbiology 12/01/20 14:31 Urine, Cystoscopy Urine Culture - Preliminary Gram negative bertin Staphylococcus species 12/01/20 13:00 Mucosa - Nose SARS-CoV-2 Antigen (Rapid) - Final Goal Trough: 15-20 mcg/mL Pharmacy Plan for Drug Dosing: NEW START IV VANCOMYCIN Consulting Physician: Dr. 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 Will plan on pt getting initial loading dose of 2g IV x1. No subsequent doses ordered at this time per protocol. Will check a random level 12/04 and dose based on that level until renal function stabilizes. Pending Level: 12/04/20 with AM labs Pharmacy Service will continue to monitor and adjust dosing as required.
[2020-12-02 15:38] LABS: Ferritin 520 ng/mL (26-388); Iron 14 ug/dL (65-175); Iron Binding Capacity,Total 152 ug/dL (250-450); PERCENT IRON SATURATION 9.2 % (15.0-55.0)
--- NOTE | 2020-12-02 16:26 | PCM.CONS.R ---
Consultation - Renal 12/02/20 PCP/ Referring MD: Requesting physician: [] Primary care physician: Dr. Kim Torres MD Reason for Consultation:: merle - History of Present Illness History of Present Illness: The patient is a 80 year old M past medical history of CKD stage III baseline 1.8?2.4 and as below who presented with a chief complaint of weakness. He had follow-up appointment with urology the day prior to admission and felt that his weakness was gradually worsening and noted decreased output from his ileostomy associated with nausea and vomiting. In the emergency room he was found to have a leukocytosis of 29 WBC count stable since September and a creatinine of 6.8 from his baseline of the low 2 range in September. He underwent a radical cystectomy prostatectomy bilateral pelvic node dissection and right inguinal hernia repair in September. He had a complicated hospitalization with prolonged ileus leukocytosis and acute kidney injury. His peak serum creatinine was in the 5 range and he was seen by me in September. Patient noticed decreased urine output for about a week prior to admission had 3 falls at home. He was back on losartan. Denies taking NSAIDs. There is no gross hematuria or abdominal pain. He also had diarrhea about 4-5 watery stools the day prior to admission. He has no other complaints. - Allergies Allergies: Allergies atenolol Adverse Reaction (Verified 12/01/20 12:20) hypotension HYPOTENSION tamsulosin [From Flomax] Adverse Reaction (Verified 12/01/20 12:20) PT UNSURE OF REACTION passed out - Current Medications Current Medications: Current Medications Acetaminophen (Acetaminophen 325 Mg Tablet) 650 mg PO Q6H PRN PRN PRN Reason: Pain Score 1-10/Temp > 100.7 F Aspirin (Aspirin 81 Mg Tab.Chew) 81 mg PO DAILY@0800 [facility] Last Admin: 12/02/20 08:13 Dose: 81 mg Documented by: Calamine/Phenol (Menthol/Lanolin/Calamine/Znox 113 Gm Tube) 1 applic TOPICAL BID [facility]; Protocol Last Admin: 12/02/20 10:40 Dose: 1 applicatio Documented by: Heparin Sodium (Porcine) (Heparin Injection (Vial) 5,000 Unit/Ml Vial) 5,000 unit SC Q12 [facility] Last Admin: 12/02/20 10:40 Dose: 5,000 unit Documented by: Ceftriaxone Sodium (Rocephin) 1 gm in 50 mls @ 100 mls/hr IV Q24 [facility] Last Infusion: 12/02/20 08:28 Dose: Infused Documented by: Sodium Bicarbonate 150 meq/ (Sodium Chloride) 1,150 mls @ 125 mls/hr IV .Q9H12M [facility] Last Admin: 12/02/20 09:06 Dose: 125 mls/hr Documented by: Vancomycin IV Pharmacy to Dose (1 ea/ Sodium Chloride) 500 mls @ 250 mls/hr IV PRN PRN; Protocol PRN Reason: Rx to Dose Lorazepam (Lorazepam 0.5 Mg Tablet) 0.5 mg PO DAILY PRN PRN PRN Reason: ANXIETY Metoprolol Tartrate (Metoprolol Tartrate 25 Mg Tablet) 25 mg PO BID [facility] Last Admin: 12/02/20 10:40 Dose: Not Given Documented by: Multivitamins (Multivitamins,Therapeutic Tablet) 1 tablet PO DAILYCM [facility] Last Admin: 12/02/20 08:13 Dose: 1 tablet Documented by: Nutritional Formula (Lactose Free) (Ensure Enlive 120 Ml Liquid) 120 ml PO 4X/DAY [facility] Ondansetron HCl (Ondansetron 4 Mg/2 Ml Vial) 4 mg IV Q8H PRN PRN PRN Reason: NAUSEA/VOMITING Oxycodone HCl (Oxycodone 5 Mg Tablet) 5 mg PO Q4H PRN PRN PRN Reason: Pain Score 6-10 Sodium Chloride (0.9% Saline Lock 10 Ml Syringe) 10 - 40 ml IV UD PRN PRN Reason: SALINE FLUSH - Past Medical History Past Medical History (Chronic Problems): Chronic Problems (Last Reviewed 12/02/20 @ 11:[address] Aramis Matthew MD) Bladder tumor (Chronic) Bladder cancer (Chronic) Leukocytosis (Chronic) - Past Surgical History Surgical History: TURP - Social History Smoking Status: Former smoker - Family History Maternal History Items: No pertinent history Review of Systems Eyes: Reports: - - As in HPI otherwise essentially negative. Patient Problems: Active and Suspected Problems (Last Reviewed 12/02/20 @ 11:[address] Aramis Matthew MD) Gross hematuria (Acute) MERLE (acute kidney injury) (Acute) Debility (Acute) Dehydration (Acute) Urinary tract infection (Acute) - Physical Exam Vitals/I&O's: Vital Signs Temp Pulse Resp BP Pulse Ox 97.3 F L 73 20 H 110/69 95 12/02/20 16:00 12/02/20 16:00 12/02/20 16:00 12/02/20 16:00 12/02/20 16:00 Oxygen Delivery Method Room Air Weight: 99 kg Body Mass Index (BMI) 30.4 Intake and Output for Last 24 Hours 11/30/20 12/01/20 12/02/20 23:59 23:59 23:59 Intake Total 1250 / 1250 3207.5 / 3207.5 Output Total 325 / 325 Balance 1250 / 1150 2882.5 / 2882.5 General: Alert, Cooperative HEENT: Atraumatic, Normocephalic Oral: Moist Mucosa Neck: Supple, Trachea Midline Lungs: Clear to auscultation, Normal air movement Cardiovascular: Regular rate, Regular Rhythm, Normal S1, Normal S2 Abdomen: Bowel Sounds Present, Soft, Obese Extremities: No edema Microbiology Past 72 Hours 12/01/20 14:31 Urine, Cystoscopy Urine Culture - Preliminary Gram negative bertin Staphylococcus species 12/01/20 13:00 Mucosa - Nose SARS-CoV-2 Antigen (Rapid) - Final Laboratory Results 12/01/20 14:31: Urine Color Brown, Urine Clarity Turbid, Urine pH 6.5, Ur Specific [place] 1.015, Urine Protein 500 H, Urine Glucose (UA) Normal, Urine Ketones 5 H, Urine Occult Blood 250 H, Urine Nitrite Negative, Urine Bilirubin Negative, Urine Urobilinogen Normal, Ur Leukocyte Esterase 500 H, Urine RBC 0 SEEN, Urine WBC >100 SEEN, Ur Squamous Epith Cells 0 SEEN, Urine Bacteria 2+, Urine Mucus 0 SEEN 12/01/20 22:34: Urine Color Yellow, Urine Clarity Cloudy, Urine pH 7.0, Ur Specific [place] 1.010, Urine Protein 500 H, Urine Glucose (UA) Normal, Urine Ketones 5 H, Urine Occult Blood 250 H, Urine Nitrite Negative, Urine Bilirubin Negative, Urine Urobilinogen Normal, Ur Leukocyte Esterase 500 H, Urine RBC > 100 SEEN, Urine WBC 50-100 SEEN, Ur Squamous Epith Cells 0 SEEN, Calcium Oxalate Crystal RARE, Amorphous Sediment 2+, Urine Bacteria 3+, Urine Mucus 0 SEEN 12/01/20 22:34: Ur Random Sodium 69, Urine Creatinine 133.00 12/02/20 05:20: WBC 16.7 H, RBC 2.85 L, Hgb 6.9 L, Hct 23.6 L, MCV 82.8, MCH 24.2 L, MCHC 29.2 L, RDW Std Deviation 51.9 H, RDW Coeff of Jeff 17.3 H, Plt Count 231, MPV 11.0, Immature Gran % (Auto) 0.800, Neut % (Auto) 66.5, Lymph % (Auto) 7.9 L, [place] % (Auto) 24.5 H, Eos % (Auto) 0.1, Baso % (Auto) 0.2, Absolute Neuts (auto) 11.1 H, Absolute Lymphs (auto) 1.32, Nucleated RBC % 0, Diff Path Review February12/02/20 05:20: Sodium 137, Potassium 4.0, Chloride 112 H, Carbon Dioxide 11.0 L, Anion Gap 14, BUN 79 H, Creatinine 6.60 H, Estim Creat Clear Calc 9.35, Est GFR (MDRD) Af Amer 10 L, Est GFR (MDRD) Non-Af 9 L, BUN/Creatinine Ratio 12.0, Glucose 97, Calcium 8.5, TSH 0.43 12/02/20 05:20: Iron 14 L, TIBC 152 L, Iron Saturation 9.2 L, Ferritin 520 H, Folate 24.30 12/02/20 08:17: Eos Smear Total Cells Pending 12/02/20 12:44: Blood Type A POSITIVE, Antibody Screen NEGATIVE, Crossmatch See Detail Current Medications Acetaminophen (Acetaminophen 325 Mg Tablet) 650 mg PO Q6H PRN PRN PRN Reason: Pain Score 1-10/Temp > 100.7 F Aspirin (Aspirin 81 Mg Tab.Chew) 81 mg PO DAILY@0800 [facility] Last Admin: 12/02/20 08:13 Dose: 81 mg Documented by: Calamine/Phenol (Menthol/Lanolin/Calamine/Znox 113 Gm Tube) 1 applic TOPICAL BID [facility]; Protocol Last Admin: 12/02/20 10:40 Dose: 1 applicatio Documented by: Heparin Sodium (Porcine) (Heparin Injection (Vial) 5,000 Unit/Ml Vial) 5,000 unit SC Q12 [facility] Last Admin: 12/02/20 10:40 Dose: 5,000 unit Documented by: Ceftriaxone Sodium (Rocephin) 1 gm in 50 mls @ 100 mls/hr IV Q24 [facility] Last Infusion: 12/02/20 08:28 Dose: Infused Documented by: Sodium Bicarbonate 150 meq/ (Sodium Chloride) 1,150 mls @ 125 mls/hr IV .Q9H12M [facility] Last Admin: 12/02/20 09:06 Dose: 125 mls/hr Documented by: Vancomycin IV Pharmacy to Dose (1 ea/ Sodium Chloride) 500 mls @ 250 mls/hr IV PRN PRN; Protocol PRN Reason: Rx to Dose Lorazepam (Lorazepam 0.5 Mg Tablet) 0.5 mg PO DAILY PRN PRN PRN Reason: ANXIETY Metoprolol Tartrate (Metoprolol Tartrate 25 Mg Tablet) 25 mg PO BID [facility] Last Admin: 12/02/20 10:40 Dose: Not Given Documented by: Multivitamins (Multivitamins,Therapeutic Tablet) 1 tablet PO DAILYCM [facility] Last Admin: 12/02/20 08:13 Dose: 1 tablet Documented by: Nutritional Formula (Lactose Free) (Ensure Enlive 120 Ml Liquid) 120 ml PO 4X/DAY [facility] Ondansetron HCl (Ondansetron 4 Mg/2 Ml Vial) 4 mg IV Q8H PRN PRN PRN Reason: NAUSEA/VOMITING Oxycodone HCl (Oxycodone 5 Mg Tablet) 5 mg PO Q4H PRN PRN PRN Reason: Pain Score 6-10 Sodium Chloride (0.9% Saline Lock 10 Ml Syringe) 10 - 40 ml IV UD PRN PRN Reason: SALINE FLUSH Assessment/Plan All Active Problems (Last Reviewed 12/02/20 @ 11:[address] Aramis aMtthew MD) Gross hematuria (Acute) MERLE (acute kidney injury) (Acute) Debility (Acute) Dehydration (Acute) Urinary tract infection (Acute) MERLE initial diagnosis includes obstructive uropathy with bilateral hydronephrosis and ATN Metabolic acidosis Bilateral hydronephrosis radical cystectomy for advanced bladder cancer positive lymph nodes postoperatively with ileal conduit Leukocytosis Possible UTI Hold losartan Agree with IV fluids with bicarb Urology on board might need loopogram if no improvement in renal function No immediate need for renal replacement therapy Avoid nephrotoxins Other work-up per clinical course. The above assessment and plan was discussed at length with the patient voiced understanding and agrees to proceed with the plan as outlined above. He was given the opportunity to ask questions and stated that those were answered to his satisfaction. Thank you for allowing me to participate in the care of this patient. Please do not hesitate to call if you have any questions or concerns
[2020-12-02] MEDS: 0.9% Saline Lock 10 ML Syringe IV (19:02)
[2020-12-02] MEDS: oxyCODONE 5 MG Tablet PO (19:10)
[2020-12-02] MEDS: Metoprolol Tartrate 25 MG Tablet PO (22:41)
[2020-12-03] VITALS (10 sets, daily range): BP systolic 103–114; BP diastolic 56–76; PULSE 69–90; RESP 16–20; TEMP 36.6–36.7; O2SAT 89–100
[2020-12-03 06:33] LABS: Absolute Lymphocyte Count 1.16 X10^3/uL (0.83-4.51); Absolute Neutrophil Count 9.4 X10^3/uL (2.0-7.7); Basophil# 0.04 X10^3/uL; Basophil% 0.3 % (0-1); Differential Indicated SCAN CRITERIA MET; Eosinophil# 0.02 X10^3/uL; Eosinophils% 0.1 % (0-5); Hematocrit 27.3 % (40-54); Lymphocyte # 1.16 X10^3/ul (4.0); Lymphocyte % 7.8 % (19-41); Mean Corp Hgb Conc 29.3 g/dL (32-36); Mean Platelet Vol. 10.5 fl (6.2-12.0); Monocyte# 4.08 X10^3/uL; Monocyte% 27.3 % (0-10); NRBC Flagged by Analyzer 0 % (0-5); Neutrophil # 9.36 X10^3/uL (2.7-7.7); Neutrophil % 62.7 % (47-70); POSITIVE DIFFERENTIAL YES; Platelet Count 230 K/mm3 (150-450); RBC Distribution Width CV 17.2 % (11.6-14.6); RBC Distribution Width SD 51.2 fl (35.1-43.9); Red Blood Count 3.33 M/mm3 (4.6-6.2); White Blood Count 14.9 K/mm3 (4.4-11.0)
[2020-12-03 07:07] LABS: Anion Gap 11 (5-15); BUN 77 mg/dL (7-18); BUN/Creat Ratio 11.8 RATIO (10-20); Calcium,Total 8.1 mg/dL (8.5-10.1); Chloride 113 mmol/L (98-107); Creatinine, Serum 6.54 mg/dL (0.70-1.30); EST Glomerular Filtration Rate 9 mL/min (>60); Est Glom Filt Rate - Afr Amer 11 mL/min (>60); Estimated Creatinine Clearance 9.43 ml/min; Glucose 97 mg/dL (74-106); Potassium 3.5 mmol/L (3.5-5.1); Sodium Level 140 mmol/L (136-145)
--- NOTE | 2020-12-03 07:46 | PCM.PROGNOTE ---
Patient Problems: Active and Suspected Problems (Last Reviewed 12/02/20 @ 11:[address] Aramis Matthew MD) Gross hematuria (Acute) MERLE (acute kidney injury) (Acute) Debility (Acute) Dehydration (Acute) Urinary tract infection (Acute) Subjective: 80-year-old male admitted for urinary tract infection dehydration and acute renal insufficiency. - Physical Exam Vitals/I&O's: Vital Signs Temp Pulse Resp BP Pulse Ox 97.9 F 86 18 114/76 95 12/03/20 04:10 12/03/20 04:10 12/03/20 04:10 12/03/20 04:10 12/03/20 04:10 Oxygen Delivery Method Room Air Weight: 99 kg Body Mass Index (BMI) 30.4 Intake and Output for Last 24 Hours 12/01/20 12/02/20 12/03/20 23:59 23:59 23:59 Intake Total 1250 / 1250 5035.0 / 5035.0 627.08 / 627.08 Output Total 425 / 525 300 / 300 Balance 1250 / 1150 4610.0 / 4510.0 327.08 / 327.08 General: Alert, Oriented x3, Cooperative HEENT: Atraumatic, PERRLA, EOMI, Normocephalic Neck: Supple, No JVD, Negative Carotid Bruits Lungs: Clear to auscultation, Normal air movement Cardiovascular: Regular rate, No murmurs Abdomen: Bowel Sounds Present, Soft, Non Tender Extremities: No edema, Capillary Refill Less than 3 Seconds Skin: No rashes, No breakdown Musculoskeletal: No Tenderness to Palpation of Joints or Extremities Neurological: Cranial nerves II-XII grossly intact Psych/Mental Status: Normal Affect, Appropriate Microbiology Past 72 Hours 12/01/20 14:31 Urine, Cystoscopy Urine Culture - Preliminary Gram negative bertin Staphylococcus species 12/01/20 13:00 Mucosa - Nose SARS-CoV-2 Antigen (Rapid) - Final Laboratory Results 12/01/20 14:31: Urine Color Brown, Urine Clarity Turbid, Urine pH 6.5, Ur Specific [place] 1.015, Urine Protein 500 H, Urine Glucose (UA) Normal, Urine Ketones 5 H, Urine Occult Blood 250 H, Urine Nitrite Negative, Urine Bilirubin Negative, Urine Urobilinogen Normal, Ur Leukocyte Esterase 500 H, Urine RBC 0 SEEN, Urine WBC >100 SEEN, Ur Squamous Epith Cells 0 SEEN, Urine Bacteria 2+, Urine Mucus 0 SEEN 12/02/20 05:20: Iron 14 L, TIBC 152 L, Iron Saturation 9.2 L, Ferritin 520 H, Folate 24.30 12/02/20 08:17: Eos Smear Total Cells Pending 12/02/20 12:44: Blood Type A POSITIVE, Antibody Screen NEGATIVE, Crossmatch See Detail 12/03/20 05:30: WBC 14.9 H, RBC 3.33 L, Hgb 8.0 L, Hct 27.3 L, MCV 82.0, MCH 24.0 L, MCHC 29.3 L, RDW Std Deviation 51.2 H, RDW Coeff of Jeff 17.2 H, Plt Count 230, MPV 10.5, Immature Gran % (Auto) 1.800 H, Neut % (Auto) 62.7, Lymph % (Auto) 7.8 L, [place] % (Auto) 27.3 H, Eos % (Auto) 0.1, Baso % (Auto) 0.3, Absolute Neuts (auto) 9.4 H, Absolute Lymphs (auto) 1.16, Nucleated RBC % 0, Diff Path Review February12/03/20 05:30: Sodium 140, Potassium 3.5, Chloride 113 H, Carbon Dioxide 16.0 L, Anion Gap 11, BUN 77 H, Creatinine 6.54 H, Estim Creat Clear Calc 9.43, Est GFR (MDRD) Af Amer 11 L, Est GFR (MDRD) Non-Af 9 L, BUN/Creatinine Ratio 11.8, Glucose 97, Calcium 8.1 L 12/03/20 05:30: Vitamin B12 Pending Current Medications Acetaminophen (Acetaminophen 325 Mg Tablet) 650 mg PO Q6H PRN PRN PRN Reason: Pain Score 1-10/Temp > 100.7 F Aspirin (Aspirin 81 Mg Tab.Chew) 81 mg PO DAILY@0800 [facility] Last Admin: 12/02/20 08:13 Dose: 81 mg Documented by: Calamine/Phenol (Menthol/Lanolin/Calamine/Znox 113 Gm Tube) 1 applic TOPICAL BID [facility]; Protocol Last Admin: 12/02/20 22:40 Dose: 1 applicatio Documented by: Heparin Sodium (Porcine) (Heparin Injection (Vial) 5,000 Unit/Ml Vial) 5,000 unit SC Q12 [facility] Last Admin: 12/02/20 22:40 Dose: 5,000 unit Documented by: Ceftriaxone Sodium (Rocephin) 1 gm in 50 mls @ 100 mls/hr IV Q24 [facility] Last Infusion: 12/02/20 08:28 Dose: Infused Documented by: Sodium Bicarbonate 150 meq/ (Sodium Chloride) 1,150 mls @ 125 mls/hr IV .[id number] [facility] Last Admin: 12/03/20 00:03 Dose: 125 mls/hr Documented by: Vancomycin IV Pharmacy to Dose (1 ea/ Sodium Chloride) 500 mls @ 250 mls/hr IV PRN PRN; Protocol PRN Reason: Rx to Dose Lorazepam (Lorazepam 0.5 Mg Tablet) 0.5 mg PO DAILY PRN PRN PRN Reason: ANXIETY Metoprolol Tartrate (Metoprolol Tartrate 25 Mg Tablet) 25 mg PO BID [facility] Last Admin: 12/02/20 22:41 Dose: 25 mg Documented by: Multivitamins (Multivitamins,Therapeutic Tablet) 1 tablet PO DAILYCM [facility] Last Admin: 12/02/20 08:13 Dose: 1 tablet Documented by: Nutritional Formula (Lactose Free) (Ensure Enlive 120 Ml Liquid) 120 ml PO 4X/DAY [facility] Last Admin: 12/02/20 23:07 Dose: Not Given Documented by: Ondansetron HCl (Ondansetron 4 Mg/2 Ml Vial) 4 mg IV Q8H PRN PRN PRN Reason: NAUSEA/VOMITING Oxycodone HCl (Oxycodone 5 Mg Tablet) 5 mg PO Q4H PRN PRN PRN Reason: Pain Score 6-10 Last Admin: 12/02/20 19:10 Dose: 5 mg Documented by: Sodium Chloride (0.9% Saline Lock 10 Ml Syringe) 10 - 40 ml IV UD PRN PRN Reason: SALINE FLUSH Last Admin: 12/02/20 19:02 Dose: 10 ml Documented by: Medical Necessity - Tobacco Use Smoking Status: Former smoker Assessment/Plan All Active Problems (Last Reviewed 12/02/20 @ 11:[address] Aramis Matthew MD) Gross hematuria (Acute) MERLE (acute kidney injury) (Acute) Debility (Acute) Dehydration (Acute) Urinary tract infection (Acute) This morning he has more urine output from the ileostomy his creatinine is still fairly high, open with some time that the creatinine will start coming down. Plan for intervention to remove the other stent, he has [address], get the stent has been removed. The stent still in is may be a source of infection so plan to remove that we will also do a loopogram at the same time to rule out obstruction at the anastomosis which is fairly unlikely so soon after surgery. Plan for intervention on Thursday.
[2020-12-03 08:54] LABS: Vitamin B12 1281 pg/mL (211-911)
[2020-12-03] MEDS: Heparin Injection (Vial) 5,000 UNIT/ML VIAL 5000 UNIT SC ×2 (09:33→20:35)
[2020-12-03] MEDS: Metoprolol Tartrate 25 MG Tablet PO ×2 (09:33→20:35)
[2020-12-03] MEDS: Aspirin 81 MG TAB.CHEW PO (09:34)
[2020-12-03] MEDS: Multivitamins,Therapeutic Tablet 1 TABLET PO (09:34)
--- NOTE | 2020-12-03 10:00 | CASEMGMT ---
LIAM VAZQUEZ Face to Face with patient for initial transition planning/care coordination assessment. LIAM VAZQUEZ introduced self and role at [facility]. Patient lying in bed, alert and oriented. Patient willing to participate in assessment and is able to answer all questions appropriately. Care providers, pharmacy, and demographics verified. Patient wishes to discharge home. Patient states he has no further needs or concerns at this time. CM to follow for discharge planning needs that may arise. PCP: Brian Specialists: Vipul, urologist; Prah, oncology/hematology Preferred [facility]acy: [facility] Insurance: Medicare, [facility] Prescription Benefit: yes Living Will/HPOA: no, no LNOK: , Xin Living Arrangements: Pt lives with in a 1 1/2 story home in the lower level with 3 steps with a rail to enter. Pt reports he was independent at home prior to hospitalization. Transportation: Pt reports his kids transport him to psychiatric hospital at [facility]. DME/HHC: Pt has a raised toilet seat, cane and walker at home. He has had [facility] HHS in the past. Disposition Plan: Pt to [facility] home with family support and follow up plans in place. Will monitor need for HHC at [facility].
[2020-12-03] MEDS: Ceftriaxone 1 GM/50 ML BAG IV (10:05)
--- NOTE | 2020-12-03 11:07 | PN.RENAL_ITS ---
Patient Problems: Active and Suspected Problems (Last Reviewed 12/02/20 @ 11:[address] Aramis Matthew MD) Gross hematuria (Acute) MERLE (acute kidney injury) (Acute) Debility (Acute) Dehydration (Acute) Urinary tract infection (Acute) Subjective: Patient is doing Ok. No nausea No vomiting Breathing is good still with diarrhea but better. - Physical Exam Vitals/I&O's: Vital Signs Temp Pulse Resp BP Pulse Ox 97.8 F 80 20 H 103/56 L 94 12/03/20 09:40 12/03/20 09:45 12/03/20 09:40 12/03/20 09:40 12/03/20 09:40 Oxygen Flow Rate (L/min) 1 Oxygen Delivery Method Nasal Cannula Weight: 99 kg Body Mass Index (BMI) 30.4 Intake and Output for Last 24 Hours 12/01/20 12/02/20 12/03/20 23:59 23:59 23:59 Intake Total 1250 / 1250 5035.0 / 5035.0 1881.25 / 1881.25 Output Total 425 / 525 300 / 300 Balance 1250 / 1150 4610.0 / 4510.0 1581.25 / 1581.25 General: Alert, Oriented x3 HEENT: Atraumatic Oral: Moist Mucosa Neck: Supple, No JVD Lungs: Clear to auscultation, Normal air movement, No rhonchi, No wheeze Cardiovascular: Regular rate, Regular Rhythm, Normal S1, Normal S2 Abdomen: Bowel Sounds Present, Soft, Non Tender, Non-Distended Extremities: No clubbing, No cyanosis, No edema Skin: No rashes Lymphatic: No Cervical, Supraclavicular, or Inguinal Adenopathy Neurological: Cranial nerves II-XII grossly intact, Neuro grossly intact Psych/Mental Status: Appropriate Microbiology Past 72 Hours 12/01/20 14:31 Urine, Cystoscopy Urine Culture - Preliminary Gram negative bertin Staphylococcus species 12/01/20 13:00 Mucosa - Nose SARS-CoV-2 Antigen (Rapid) - Final Laboratory Results 12/02/20 05:20: Iron 14 L, TIBC 152 L, Iron Saturation 9.2 L, Ferritin 520 H, Folate 24.30 12/02/20 12:44: Blood Type A POSITIVE, Antibody Screen NEGATIVE, Crossmatch See Detail 12/03/20 05:30: WBC 14.9 H, RBC 3.33 L, Hgb 8.0 L, Hct 27.3 L, MCV 82.0, MCH 24.0 L, MCHC 29.3 L, RDW Std Deviation 51.2 H, RDW Coeff of Jeff 17.2 H, Plt C ount 230, MPV 10.5, Immature Gran % (Auto) 1.800 H, Neut % (Auto) 62.7, Lymph % (Auto) 7.8 L, [place] % (Auto) 27.3 H, Eos % (Auto) 0.1, Baso % (Auto) 0.3, Absolute Neuts (auto) 9.4 H, Absolute Lymphs (auto) 1.16, Nucleated RBC % 0, Diff Path Review February12/03/20 05:30: Sodium 140, Potassium 3.5, Chloride 113 H, Carbon Dioxide 16.0 L , Anion Gap 11, BUN 77 H, Creatinine 6.54 H, Estim Creat Clear Calc 9.43, Est GFR (MDRD) Af Amer 11 L, Est GFR (MDRD) Non-Af 9 L, BUN/Creatinine Ratio 11.8, Glucose 97, Calcium 8.1 L 12/03/20 05:30: Vitamin B12 1281 H Current Medications Acetaminophen (Acetaminophen 325 Mg Tablet) 650 mg PO Q6H PRN PRN PRN Reason: Pain Score 1-10/Temp > 100.7 F Aspirin (Aspirin 81 Mg Tab.Chew) 81 mg PO DAILY@0800 [facility] Last Admin: 12/03/20 09:34 Dose: 81 mg Documented by: Calamine/Phenol (Menthol/Lanolin/Calamine/Znox 113 Gm Tube) 1 applic TOPICAL BID [facility]; Protocol Last Admin: 12/02/20 22:40 Dose: 1 applicatio Documented by: Heparin Sodium (Porcine) (Heparin Injection (Vial) 5,000 Unit/Ml Vial) 5,000 unit SC Q12 [facility] Last Admin: 12/03/20 09:33 Dose: 5,000 unit Documented by: Ceftriaxone Sodium (Rocephin) 1 gm in 50 mls @ 100 mls/hr IV Q24 [facility] Last Admin: 12/03/20 10:05 Dose: 100 mls/hr Documented by: Sodium Bicarbonate 150 meq/ (Sodium Chloride) 1,150 mls @ 75 mls/hr IV .[id number] [facility] Last Infusion: 12/03/20 10:05 Dose: 0 mls/hr Documented by: Vancomycin IV Pharmacy to Dose (1 ea/ Sodium Chloride) 500 mls @ 250 mls/hr IV PRN PRN; Protocol PRN Reason: Rx to Dose Lorazepam (Lorazepam 0.5 Mg Tablet) 0.5 mg PO DAILY PRN PRN PRN Reason: ANXIETY Metoprolol Tartrate (Metoprolol Tartrate 25 Mg Tablet) 25 mg PO BID [facility] Last Admin: 12/03/20 09:33 Dose: 25 mg Documented by: Multivitamins (Multivitamins,Therapeutic Tablet) 1 tablet PO DAILYCM [facility] Last Admin: 12/03/20 09:34 Dose: 1 tablet Documented by: Nutritional Formula (Lactose Free) (Ensure Enlive 120 Ml Liquid) 120 ml PO 4X/DAY [facility] Last Admin: 12/03/20 09:32 Dose: Not Given Documented by: Ondansetron HCl (Ondansetron 4 Mg/2 Ml Vial) 4 mg IV Q8H PRN PRN PRN Reason: NAUSEA/VOMITING Oxycodone HCl (Oxycodone 5 Mg Tablet) 5 mg PO Q4H PRN PRN PRN Reason: Pain Score 6-10 Last Admin: 12/02/20 19:10 Dose: 5 mg Documented by: Sodium Chloride (0.9% Saline Lock 10 Ml Syringe) 10 - 40 ml IV UD PRN PRN Reason: SALINE FLUSH Last Admin: 12/02/20 19:02 Dose: 10 ml Documented by: Medical Necessity - Tobacco Use Smoking Status: Former smoker Assessment/Plan All Active Problems (Last Reviewed 12/02/20 @ 11:[address] Aramis Matthew MD) Gross hematuria (Acute) MERLE (acute kidney injury) (Acute) Debility (Acute) Dehydration (Acute) Urinary tract infection (Acute) 1- MERLE on CKD stage 3. baseline Cr 1.8-2.4 mg/dl MERLE is likely post renal from B/L hydronephrosis.ATN is also possible Cr is slightly better but remains significantly elevated at 6.3 mg/dl UOP has increased Continue IVF No need for urgent [employer]. Will continue to evaluate the need of [employer] daily Continue holding losartan Check RFP in am 2- Metabolic acidosis from MERLE Improved with isotonic HC03 drip Continue same rate of HC03 drip 3- B/L hydronephrosis. Patient is s/p cystectomy with ileal conduit creation and B/L ureter stents placement in September 2020 Urology is following. Plan for stent removal and loopogram Thursday 4- UTI: Abx as per the primary service Renal team will continue to follow Please call if any question or concern at [phone] aMrian Bhatia MD
[2020-12-03] MEDS: Menthol/Lanolin/Calamine/Znox 113 GM Tube 1 APPLIC TOPICAL ×2 (12:01→20:34)
--- NOTE | 2020-12-03 12:24 | PN_ITS ---
Patient Problems: Active and Suspected Problems (Last Reviewed 12/02/20 @ 11:[address] Aramis Matthew MD) Gross hematuria (Acute) MERLE (acute kidney injury) (Acute) Debility (Acute) Dehydration (Acute) Urinary tract infection (Acute) Subjective: Patient seen and examined. PT/OT was working with him, and patient was very willing. He had no complaints this morning. He denied fever, chills, nausea, vomiting or diarrhea. Review of systems is otherwise negative. He has remained hemodynamically stable.. Vitals/I&O's: Vital Signs Temp Pulse Resp BP Pulse Ox 97.8 F 80 20 H 103/56 L 94 12/03/20 09:40 12/03/20 09:45 12/03/20 09:40 12/03/20 09:40 12/03/20 09:40 Oxygen Flow Rate (L/min) 1 Oxygen Delivery Method Nasal Cannula Weight: 218 lb 4.122 oz Body Mass Index (BMI) 30.4 Intake and Output for Last 24 Hours 12/01/20 12/02/20 12/03/20 23:59 23:59 23:59 Intake Total 1250 / 1250 5035.0 / 5035.0 1931.25 / 1931.25 Output Total 425 / 525 525 / 525 Balance 1250 / 1150 4610.0 / 4510.0 1406.25 / 1406.25 General: Alert, Oriented x3, Cooperative, No apparent distress HEENT: Atraumatic, PERRLA, EOMI, Normocephalic Oral: Moist Mucosa Neck: Supple, No JVD, Negative Carotid Bruits Lungs: Clear to auscultation, Normal air movement Cardiovascular: Regular rate, Regular Rhythm, Normal S1, Normal S2, No murmurs Abdomen: Bowel Sounds Present, Soft, Non Tender Extremities: No clubbing, No cyanosis, No edema, Capillary Refill Less than 3 Seconds Skin: No rashes, No breakdown Musculoskeletal: - - mild right knee tenderness with movement. 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 GNR Poss Pseudomonas sp 12/01/20 13:00 Mucosa - Nose SARS-CoV-2 Antigen (Rapid) - Final Laboratory Results 12/01/20 14:31: Urine Color Brown, Urine Clarity Turbid, Urine pH 6.5, Ur Specific [place] 1.015, Urine Protein 500 H, Urine Glucose (UA) Normal, Urine Ketones 5 H, Urine Occult Blood 250 H, Urine Nitrite Negative, Urine Bilirubin Negative, Urine Urobilinogen Normal, Ur Leukocyte Esterase 500 H, Urine RBC 0 SEEN, Urine WBC >100 SEEN, Ur Squamous Epith Cells 0 SEEN, Urine Bacteria 2+, Urine Mucus 0 SEEN 12/02/20 05:20: Iron 14 L, TIBC 152 L, Iron Saturation 9.2 L, Ferritin 520 H, Folate 24.30 12/02/20 12:44: Blood Type A POSITIVE, Antibody Screen NEGATIVE, Crossmatch See Detail 12/03/20 05:30: WBC 14.9 H, RBC 3.33 L, Hgb 8.0 L, Hct 27.3 L, MCV 82.0, MCH 24.0 L, MCHC 29.3 L, RDW Std Deviation 51.2 H, RDW Coeff of Jeff 17.2 H, Plt Count 230, MPV 10.5, Immature Gran % (Auto) 1.800 H, Neut % (Auto) 62.7, Lymph % (Auto) 7.8 L, [place] % (Auto) 27.3 H, Eos % (Auto) 0.1, Baso % (Auto) 0.3, Absolute Neuts (auto) 9.4 H, Absolute Lymphs (auto) 1.16, Nucleated RBC % 0, Diff Path Review February12/03/20 05:30: Sodium 140, Potassium 3.5, Chloride 113 H, Carbon Dioxide 16.0 L , Anion Gap 11, BUN 77 H, Creatinine 6.54 H, Estim Creat Clear Calc 9.43, Est GFR (MDRD) Af Amer 11 L, Est GFR (MDRD) Non-Af 9 L, BUN/Creatinine Ratio 11.8, Glucose 97, Calcium 8.1 L 12/03/20 05:30: Vitamin B12 1281 H Diagnostic Data Chest X-Ray 12/01/20 12:30 IMPRESSION: No active pulmonary disease. Electronically Signed: Sanit Alvares MD at 12:47 EST Tel , Service support , Renal Ultrasound 12/01/20 15:01 IMPRESSION: Stable bilateral hydronephrosis. Electronically Signed: Cecil Newton MD ([place]) at 16:33 EST , Service support , Current Medications Acetaminophen (Acetaminophen 325 Mg Tablet) 650 mg PO Q6H PRN PRN PRN Reason: Pain Score 1-10/Temp > 100.7 F Aspirin (Aspirin 81 Mg Tab.Chew) 81 mg PO DAILY@0800 [facility] Last Admin: 12/03/20 09:34 Dose: 81 mg Documented by: Calamine/Phenol (Menthol/Lanolin/Calamine/Znox 113 Gm Tube) 1 applic TOPICAL BID [facility]; Protocol Last Admin: 12/03/20 12:01 Dose: 1 applicatio Documented by: Heparin Sodium (Porcine) (Heparin Injection (Vial) 5,000 Unit/Ml Vial) 5,000 unit SC Q12 [facility] Last Admin: 12/03/20 09:33 Dose: 5,000 unit Documented by: Ceftriaxone Sodium (Rocephin) 1 gm in 50 mls @ 100 mls/hr IV Q24 [facility] Last Infusion: 12/03/20 10:35 Dose: Infused Documented by: Sodium Bicarbonate 150 meq/ (Sodium Chloride) 1,150 mls @ 75 mls/hr IV .[id number] [facility] Last Infusion: 12/03/20 10:35 Dose: 75 mls/hr Documented by: Vancomycin IV Pharmacy to Dose (1 ea/ Sodium Chloride) 500 mls @ 250 mls/hr IV PRN PRN; Protocol PRN Reason: Rx to Dose Lorazepam (Lorazepam 0.5 Mg Tablet) 0.5 mg PO DAILY PRN PRN PRN Reason: ANXIETY Metoprolol Tartrate (Metoprolol Tartrate 25 Mg Tablet) 25 mg PO BID [facility] Last Admin: 12/03/20 09:33 Dose: 25 mg Documented by: Multivitamins (Multivitamins,Therapeutic Tablet) 1 tablet PO DAILYCM [facility] Last Admin: 12/03/20 09:34 Dose: 1 tablet Documented by: Nutritional Formula (Lactose Free) (Ensure Enlive 120 Ml Liquid) 120 ml PO 4X/DAY [facility] Last Admin: 12/03/20 09:32 Dose: Not Given Documented by: Ondansetron HCl (Ondansetron 4 Mg/2 Ml Vial) 4 mg IV Q8H PRN PRN PRN Reason: NAUSEA/VOMITING Oxycodone HCl (Oxycodone 5 Mg Tablet) 5 mg PO Q4H PRN PRN PRN Reason: Pain Score 6-10 Last Admin: 12/02/20 19:10 Dose: 5 mg Documented by: Sodium Chloride (0.9% Saline Lock 10 Ml Syringe) 10 - 40 ml IV UD PRN PRN Reason: SALINE FLUSH Last Admin: 12/02/20 19:02 Dose: 10 ml Documented by: STROKE Vital Signs/Narrative: Vital Signs Temp Pulse Resp BP Pulse Ox 12/03/20 09:45 80 12/03/20 09:40 97.8 F 69 20 H 103/56 L 94 12/03/20 09:33 85 Medical Necessity - Tobacco Use Smoking Status: Former smoker Assessment/Plan All Active Problems (Last Reviewed 12/02/20 @ 11:[address] 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 * losartan on hold * # Leucocytosi: chronic. stable #Non-anion gap metabolic acidosis: Bicarb is 16. This is likely due to MERLE. Nephrology on board. #History of bladder cancer s/p cystectomy: urology on board #Anemia: * Hemoglobin is 8. * S/p transfusion of 1 unit of packed red blood cell hemoglobin dropped to 6.9. * Iron studies showed anemia of chronic disease as iron is low and iron saturation is low with low TIBC and ferritin is high #UTI: On vancomycin and ceftriaxone due to urine culture results. DVT prophylaxis: Heparin Inpatient E&M: [id number] [facility] L2
[2020-12-03 13:07] LABS: Pathologist Review Reviewed
[2020-12-03 13:07] LABS: Pathologist Review Reviewed
[2020-12-03 13:23] LABS: Pathologist Review Reviewed
[2020-12-03] MEDS: Acetaminophen 325 MG Tablet 650 MG PO ×2 (16:29→22:38)
[2020-12-03] MEDS: oxyCODONE 5 MG Tablet PO (22:37)
[2020-12-04] VITALS (8 sets, daily range): BP systolic 115–123; BP diastolic 61–73; PULSE 70–92; RESP 16–20; TEMP 36.1–36.6; O2SAT 97–98; BMI 30.4
[2020-12-04 06:22] LABS: Vancomycin, Random Level 13.6 ug/mL (0.0-15.0)
[2020-12-04 07:42] LABS: Anion Gap 11 (5-15); BUN 78 mg/dL (7-18); BUN/Creat Ratio 12.3 RATIO (10-20); Calcium,Total 7.4 mg/dL (8.5-10.1); Chloride 111 mmol/L (98-107); Creatinine, Serum 6.33 mg/dL (0.70-1.30); EST Glomerular Filtration Rate 9 mL/min (>60); Est Glom Filt Rate - Afr Amer 11 mL/min (>60); Estimated Creatinine Clearance 9.75 ml/min; Glucose 101 mg/dL (74-106); Potassium 3.4 mmol/L (3.5-5.1); Sodium Level 141 mmol/L (136-145)
--- NOTE | 2020-12-04 07:51 | PCM.CONS.B ---
Problem List (1) Dehydration Status: Acute (2) Urinary tract infection Status: Acute Qualifiers: Urinary tract infection type: acute pyelonephritis - Consult Date of Consult: 12/04/20 Urine output has improved, is clinically better however his creatinine is still fairly high he had advanced bladder cancer with positive lymph nodes poor prognosis. Not sure if his creatinine is going to recover possible he may need dialysis if he wants to. We will continue to monitor. His urine output has improved hopefully his renal function may improve with time will monitor.
[2020-12-04 08:03] LABS: Absolute Lymphocyte Count 1.48 X10^3/uL (0.83-4.51); Absolute Neutrophil Count 6.5 X10^3/uL (2.0-7.7); Basophil# 0.05 X10^3/uL; Basophil% 0.4 % (0-1); Differential Indicated SCAN CRITERIA MET; Eosinophil# 0.11 X10^3/uL; Hematocrit 26.5 % (40-54); Hemoglobin 8.1 g/dL (13.0-16.5); Lymphocyte # 1.48 X10^3/ul (4.0); Lymphocyte % 13.1 % (19-41); Mean Corp Hgb Conc 30.6 g/dL (32-36); Mean Corpuscular Hgb 24.3 pg (27.0-32.0); Mean Corpuscular Volume 79.6 fL (80-94); Monocyte# 2.88 X10^3/uL; Monocyte% 25.6 % (0-10); NRBC Flagged by Analyzer 0 % (0-5); Neutrophil # 6.53 X10^3/uL (2.7-7.7); POSITIVE DIFFERENTIAL YES; Platelet Count 237 K/mm3 (150-450); RBC Distribution Width CV 17.2 % (11.6-14.6); RBC Distribution Width SD 49.5 fl (35.1-43.9); Red Blood Count 3.33 M/mm3 (4.6-6.2); White Blood Count 11.3 K/mm3 (4.4-11.0)
[2020-12-04] MEDS: Metoprolol Tartrate 25 MG Tablet PO ×2 (08:21→21:47)
[2020-12-04] MEDS: Heparin Injection (Vial) 5,000 UNIT/ML VIAL 5000 UNIT SC ×2 (08:21→21:47)
[2020-12-04] MEDS: Aspirin 81 MG TAB.CHEW PO (08:21)
[2020-12-04] MEDS: Multivitamins,Therapeutic Tablet 1 TABLET PO (08:21)
[2020-12-04 08:22] LABS: Differential Comment SCANNED
[2020-12-04] MEDS: Ceftriaxone 1 GM/50 ML BAG IV (08:22)
[2020-12-04] MEDS: Menthol/Lanolin/Calamine/Znox 113 GM Tube 1 APPLIC TOPICAL ×2 (08:28→21:46)
--- NOTE | 2020-12-04 10:56 | PCM.PN.REN ---
Patient Problems: Active and Suspected Problems (Last Reviewed 12/02/20 @ 11:[address] Aramis Matthew MD) Gross hematuria (Acute) MERLE (acute kidney injury) (Acute) Debility (Acute) Dehydration (Acute) Urinary tract infection (Acute) Subjective: Patient denied N/V/SOB - Physical Exam Vitals/I&O's: Vital Signs Temp Pulse Resp BP Pulse Ox 97.7 F L 80 20 H 117/73 97 12/04/20 08:28 12/04/20 08:32 12/04/20 08:28 12/04/20 08:28 12/04/20 08:28 Oxygen Flow Rate (L/min) 1 Oxygen Delivery Method Room Air Weight: 99 kg Body Mass Index (BMI) 30.4 Intake and Output for Last 24 Hours 12/02/20 12/03/20 12/04/20 23:59 23:59 23:59 Intake Total 5035.0 / 5035.0 2978.75 / 2978.75 786.25 / 786.25 Output Total 425 / 525 950 / 950 125 / 125 Balance 4610.0 / 4510.0 2028.75 / 2028.75 661.25 / 661.25 General: Alert, Oriented x3 HEENT: Atraumatic, Normocephalic Oral: Moist Mucosa Neck: Supple, No JVD Lungs: Clear to auscultation, Normal air movement, No rhonchi, No wheeze Cardiovascular: Regular rate, Regular Rhythm, Normal S1, Normal S2 Abdomen: Bowel Sounds Present, Soft, Non Tender, Non-Distended Extremities: No clubbing, No cyanosis, No edema Skin: No rashes Musculoskeletal: No Tenderness to Palpation of Joints or Extremities Lymphatic: No Cervical, Supraclavicular, or Inguinal Adenopathy Neurological: Cranial nerves II-XII grossly intact, Neuro grossly intact Psych/Mental Status: Appropriate Microbiology Past 72 Hours 12/01/20 14:31 Urine, Cystoscopy Urine Culture - Preliminary Staphylococcus aureus 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 12/01/20 13:05 Blood Culture (Wb) - Anticubital Left Blood Culture - Preliminary No growth in 48 hours. 12/01/20 13:00 Mucosa - Nose SARS-CoV-2 Antigen (Rapid) - Final Laboratory Results 12/01/20 12:21: Diff Path Review Reviewed 12/01/20 14:31: Urine Color Brown, Urine Clarity Turbid, Urine pH 6.5, Ur Specific [place] 1.015, Urine Protein 500 H, Urine Glucose (UA) Normal, Urine Ketones 5 H, Urine Occult Blood 250 H, Urine Nitrite Negative, Urine Bilirubin Negative, Urine Urobilinogen Normal, Ur Leukocyte Esterase 500 H, Urine RBC 0 SEEN, Urine WBC >100 SEEN, Ur Squamous Epith Cells 0 SEEN, Urine Bacteria 2+, Urine Mucus 0 SEEN 12/02/20 05:20: Diff Path Review Reviewed 12/03/20 05:30: Diff Path Review Reviewed 12/04/20 05:10: Random Vancomycin 13.6 12/04/20 05:10: WBC 11.3 H, RBC 3.33 L, Hgb 8.1 L, Hct 26.5 L, MCV 79.6 L, MCH 24.3 L, MCHC 30.6 L, RDW Std Deviation 49.5 H, RDW Coeff of Jeff 17.2 H, Plt Count 237, MPV 11.0, Immature Gran % (Auto) 1.900 H, Neut % (Auto) 58.0, Lymph % (Auto) 13.1 L, Moore % (Auto) 25.6 H, Eos % (Auto) 1.0, Baso % (Auto) 0.4, Absolute Neuts (auto) 6.5, Absolute Lymphs (auto) 1.48, Nucleated RBC % 0, Differential Comment SCANNED, Diff Path Review May foll 12/04/20 05:10: Sodium 141, Potassium 3.4 L, Chloride 111 H, Carbon Dioxide 19.0 L, Anion Gap 11, BUN 78 H, Creatinine 6.33 H, Estim Creat Clear Calc 9.75, Est GFR (MDRD) Af Amer 11 L, Est GFR (MDRD) Non-Af 9 L, BUN/Creatinine Ratio 12.3, Glucose 101, Calcium 7.4 L Current Medications Acetaminophen (Acetaminophen 325 Mg Tablet) 650 mg PO Q6H PRN PRN PRN Reason: Pain Score 1-10/Temp > 100.7 F Last Admin: 12/03/20 22:38 Dose: 650 mg Documented by: Aspirin (Aspirin 81 Mg Tab.Chew) 81 mg PO DAILY@0800 [facility] Last Admin: 12/04/20 08:21 Dose: 81 mg Documented by: Calamine/Phenol (Menthol/Lanolin/Calamine/Znox 113 Gm Tube) 1 applic TOPICAL BID [facility]; Protocol Last Admin: 12/04/20 08:28 Dose: 1 applicatio Documented by: Heparin Sodium (Porcine) (Heparin Injection (Vial) 5,000 Unit/Ml Vial) 5,000 unit SC Q12 [facility] Last Admin: 12/04/20 08:21 Dose: 5,000 unit Documented by: Ceftriaxone Sodium (Rocephin) 1 gm in 50 mls @ 100 mls/hr IV Q24 [facility] Last Infusion: 12/04/20 08:52 Dose: Infused Documented by: Sodium Bicarbonate 150 meq/ (Sodium Chloride) 1,150 mls @ 75 mls/hr IV .[id number] [facility] Last Infusion: 12/04/20 08:35 Dose: 75 mls/hr Documented by: Vancomycin IV Pharmacy to Dose (1 ea/ Sodium Chloride) 500 mls @ 250 mls/hr IV PRN PRN; Protocol PRN Reason: Rx to Dose Lorazepam (Lorazepam 0.5 Mg Tablet) 0.5 mg PO DAILY PRN PRN PRN Reason: ANXIETY Metoprolol Tartrate (Metoprolol Tartrate 25 Mg Tablet) 25 mg PO BID [facility] Last Admin: 12/04/20 08:21 Dose: 25 mg Documented by: Multivitamins (Multivitamins,Therapeutic Tablet) 1 tablet PO DAILYCM [facility] Last Admin: 12/04/20 08:21 Dose: 1 tablet Documented by: Ondansetron HCl (Ondansetron 4 Mg/2 Ml Vial) 4 mg IV Q8H PRN PRN PRN Reason: NAUSEA/VOMITING Oxycodone HCl (Oxycodone 5 Mg Tablet) 5 mg PO Q4H PRN PRN PRN Reason: Pain Score 6-10 Last Admin: 12/03/20 22:37 Dose: 5 mg Documented by: Sodium Chloride (0.9% Saline Lock 10 Ml Syringe) 10 - 40 ml IV UD PRN PRN Reason: SALINE FLUSH Last Admin: 12/02/20 19:02 Dose: 10 ml Documented by: Medical Necessity - Tobacco Use Smoking Status: Former smoker Assessment/Plan All Active Problems (Last Reviewed 12/02/20 @ 11:[address] Aramis Matthew MD) Gross hematuria (Acute) MERLE (acute kidney injury) (Acute) Debility (Acute) Dehydration (Acute) Urinary tract infection (Acute) 1- EMRLE on CKD stage 3. baseline Cr 1.8-2.4 mg/dl MERLE is likely post renal from B/L hydronephrosis.ATN is also possible Cr is slightly better but remains significantly elevated at 6.3 mg/dl this am. UOP was 1L yesterday Continue IVF at the current rate 75 cc/hour No need for urgent PHYSICIAN SCIENTIST. Will continue to evaluate the need of PHYSICIAN SCIENTIST daily Continue holding losartan Check RFP in am 2- Metabolic acidosis from MERLE Improved with isotonic HC03 drip. HC03 level is 19 this am Continue same rate of HC03 drip. re check HC03 in am 3- B/L hydronephrosis. Patient is s/p cystectomy with ileal conduit creation and B/L ureter stents placement in September 2020 Urology is following. Plan for stent removal and loopogram Thursday 4- UTI: Abx as per the primary service Renal team will continue to follow Please call if any question or concern at [phone] d/w Dr. Brody Bhatia MD
--- NOTE | 2020-12-04 11:46 | PCM.PN.HOSP ---
Patient Problems: Active and Suspected Problems (Last Reviewed 12/02/20 @ 11:[address] Aramis Matthew MD) Gross hematuria (Acute) MERLE (acute kidney injury) (Acute) Debility (Acute) Dehydration (Acute) Urinary tract infection (Acute) Subjective: Patient seen and examined. He has no complaints today. Review of systems otherwise negative. He has remained hemodynamically stable. Potassium is 3.4 and creatinine is slightly down to 6.33. Urology is on board and nephrology is also on board. Vitals/I&O's: Vital Signs Temp Pulse Resp BP Pulse Ox 97.7 F L 80 20 H 117/73 97 12/04/20 08:28 12/04/20 08:32 12/04/20 08:28 12/04/20 08:28 12/04/20 08:28 Oxygen Flow Rate (L/min) 1 Oxygen Delivery Method Room Air Weight: 218 lb 4.122 oz Body Mass Index (BMI) 30.4 Intake and Output for Last 24 Hours 12/02/20 12/03/20 12/04/20 23:59 23:59 23:59 Intake Total 5035.0 / 5035.0 2978.75 / 2978.75 786.25 / 786.25 Output Total 425 / 525 950 / 950 125 / 125 Balance 4610.0 / 4510.0 2028.75 / 2028.75 661.25 / 661.25 General: Alert, Oriented x3, Cooperative, No apparent distress HEENT: Atraumatic, PERRLA, EOMI, Normocephalic Oral: Moist Mucosa Neck: Supple, No JVD, Negative Carotid Bruits Lungs: Clear to auscultation, Normal air movement Cardiovascular: Regular rate, Regular Rhythm, Normal S1, Normal S2, No murmurs Abdomen: Bowel Sounds Present, Soft, Non Tender; ileal conduit bag contains clear urine Extremities: No clubbing, No cyanosis, No edema, Capillary Refill Less than 3 Seconds Skin: No rashes, No breakdown Musculoskeletal: - - mild right knee tenderness with movement. 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 12/01/20 13:05 Blood Culture (Wb) - Anticubital Left Blood Culture - Preliminary No growth in 48 hours. 12/01/20 13:00 Mucosa - Nose SARS-CoV-2 Antigen (Rapid) - Final Laboratory Results 12/01/20 12:21: Diff Path Review Reviewed 12/01/20 14:31: Urine Color Brown, Urine Clarity Turbid, Urine pH 6.5, Ur Specific [place] 1.015, Urine Protein 500 H, Urine Glucose (UA) Normal, Urine Ketones 5 H, Urine Occult Blood 250 H, Urine Nitrite Negative, Urine Bilirubin Negative, Urine Urobilinogen Normal, Ur Leukocyte Esterase 500 H, Urine RBC 0 SEEN, Urine WBC >100 SEEN, Ur Squamous Epith Cells 0 SEEN, Urine Bacteria 2+, Urine Mucus 0 SEEN 12/02/20 05:20: Diff Path Review Reviewed 12/03/20 05:30: Diff Path Review Reviewed 12/04/20 05:10: Random Vancomycin 13.6 12/04/20 05:10: WBC 11.3 H, RBC 3.33 L, Hgb 8.1 L, Hct 26.5 L, MCV 79.6 L, MCH 24.3 L, MCHC 30.6 L, RDW Std Deviation 49.5 H, RDW Coeff of Jeff 17.2 H, Plt Count 237, MPV 11.0, Immature Gran % (Auto) 1.900 H, Neut % (Auto) 58.0, Lymph % (Auto) 13.1 L, [place] % (Auto) 25.6 H, Eos % (Auto) 1.0, Baso % (Auto) 0.4, Absolute Neuts (auto) 6.5, Absolute Lymphs (auto) 1.48, Nucleated RBC % 0, Differential Comment SCANNED, Diff Path Review May foll 12/04/20 05:10: Sodium 141, Potassium 3.4 L, Chloride 111 H, Carbon Dioxide 19.0 L, Anion Gap 11, BUN 78 H, Creatinine 6.33 H, Estim Creat Clear Calc 9.75, Est GFR (MDRD) Af Amer 11 L, Est GFR (MDRD) Non-Af 9 L, BUN/Creatinine Ratio 12.3, Glucose 101, Calcium 7.4 L Current Medications Acetaminophen (Acetaminophen 325 Mg Tablet) 650 mg PO Q6H PRN PRN PRN Reason: Pain Score 1-10/Temp > 100.7 F Last Admin: 12/03/20 22:38 Dose: 650 mg Documented by: Aspirin (Aspirin 81 Mg Tab.Chew) 81 mg PO DAILY@0800 [facility] Last Admin: 12/04/20 08:21 Dose: 81 mg Documented by: Calamine/Phenol (Menthol/Lanolin/Calamine/Znox 113 Gm Tube) 1 applic TOPICAL BID [facility]; Protocol Last Admin: 12/04/20 08:28 Dose: 1 applicatio Documented by: Heparin Sodium (Porcine) (Heparin Injection (Vial) 5,000 Unit/Ml Vial) 5,000 unit SC Q12 [facility] Last Admin: 12/04/20 08:21 Dose: 5,000 unit Documented by: Ceftriaxone Sodium (Rocephin) 1 gm in 50 mls @ 100 mls/hr IV Q24 [facility] Last Infusion: 12/04/20 08:52 Dose: Infused Documented by: Sodium Bicarbonate 150 meq/ (Sodium Chloride) 1,150 mls @ 75 mls/hr IV .[id number] [facility] Last Infusion: 12/04/20 08:35 Dose: 75 mls/hr Documented by: Vancomycin IV Pharmacy to Dose (1 ea/ Sodium Chloride) 500 mls @ 250 mls/hr IV PRN PRN; Protocol PRN Reason: Rx to Dose Vancomycin HCl 1,500 mg/ (Sodium Chloride) 530 mls @ 250 mls/hr IV X1 ONE Stop: 12/04/20 14:07 Lorazepam (Lorazepam 0.5 Mg Tablet) 0.5 mg PO DAILY PRN PRN PRN Reason: ANXIETY Metoprolol Tartrate (Metoprolol Tartrate 25 Mg Tablet) 25 mg PO BID [facility] Last Admin: 12/04/20 08:21 Dose: 25 mg Documented by: Multivitamins (Multivitamins,Therapeutic Tablet) 1 tablet PO DAILYCM [facility] Last Admin: 12/04/20 08:21 Dose: 1 tablet Documented by: Ondansetron HCl (Ondansetron 4 Mg/2 Ml Vial) 4 mg IV Q8H PRN PRN PRN Reason: NAUSEA/VOMITING Oxycodone HCl (Oxycodone 5 Mg Tablet) 5 mg PO Q4H PRN PRN PRN Reason: Pain Score 6-10 Last Admin: 12/03/20 22:37 Dose: 5 mg Documented by: Sodium Chloride (0.9% Saline Lock 10 Ml Syringe) 10 - 40 ml IV UD PRN PRN Reason: SALINE FLUSH Last Admin: 12/02/20 19:02 Dose: 10 ml Documented by: STROKE Vital Signs/Narrative: Vital Signs Temp Pulse Resp BP Pulse Ox 12/04/20 08:32 80 12/04/20 08:28 97.7 F L 79 20 H 117/73 97 12/04/20 08:21 81 Medical Necessity - Tobacco Use Smoking Status: Former smoker Assessment/Plan All Active Problems (Last Reviewed 12/02/20 @ 11:[address] 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 losartan on hold per nephro, if function does not improve after stent is removed, patient may end up needing dialysis. # Leucocytosi: chronic. stable #Non-anion gap metabolic acidosis: Bicarb is 19 today. This is likely due to MERLE. Nephrology on board. #History of bladder cancer s/p cystectomy: urology on board #Anemia: Hemoglobin is 8. S/p transfusion of 1 unit of packed red blood cell hemoglobin dropped to 6.9. Iron studies showed anemia of chronic disease as iron is low and iron saturation is low with low TIBC and ferritin is high #UTI: On vancomycin and ceftriaxone due to urine culture results. continue antibiotic for now until stent is removed. DVT prophylaxis: Heparin Inpatient E&M: [id number] [facility] L3
[2020-12-04] MEDS: 0.9% Saline Lock 10 ML Syringe IV (12:00)
--- NOTE | 2020-12-04 12:36 | PCM.RX.CS ---
Consult Pharmacy has been consulted to manage selected antiobiotic: Vancomycin Type of Consult: Follow-up Suspected Infection: Other Prior Doses of Antibiotics Received/Current Regimen: 2000MG X1 ON 12/02 AT 13:30 Labs: Sodium 141 mmol/L (136-145) 12/04/20 05:10 Potassium 3.4 mmol/L (3.5-5.1) L 12/04/20 05:10 Chloride 111 mmol/L (98-107) H 12/04/20 05:10 Carbon Dioxide 19.0 mmol/L (21.0-32.0) L 12/04/20 05:10 Anion Gap 11 (5-15) 12/04/20 05:10 BUN 78 mg/dL (7-18) H 12/04/20 05:10 Creatinine 6.33 mg/dL (0.70-1.30) H 12/04/20 05:10 Est GFR (MDRD) Af Amer 11 mL/min (>60) L 12/04/20 05:10 Est GFR (MDRD) Non-Af 9 mL/min (>60) L 12/04/20 05:10 BUN/Creatinine Ratio 12.3 RATIO (10-20) 12/04/20 05:10 Glucose 101 mg/dL (74-106) 12/04/20 05:10 Random Vancomycin 13.6 ug/mL (0.0-15.0) 12/04/20 05:10 Microbiology: Microbiology 12/01/20 14:31 Urine, Cystoscopy Urine Culture - Preliminary Staphylococcus aureus 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 12/01/20 13:05 Blood Culture (Wb) - Anticubital Left Blood Culture - Preliminary No growth in 48 hours. 12/01/20 13:00 Mucosa - Nose SARS-CoV-2 Antigen (Rapid) - Final Weight used for dosin kg Estimated Creatinine Clearance: 9.75ML/MIN Goal Trough: 15-20 mcg/mL Pharmacy Plan for Drug Dosing: The vancomycin random level drawn this morning at 05:10 (about 40 hours after the dose on 12/02) came back as 13.6. Per [facility] protocol for patients with CrCl < 20 and not on dialysis, will redose with another 1500mg IV x1 today. Will repeat another random level in the morning of 12/06/20 and evaluate further dosing from there. Pharmacy Service will continue to monitor and adjust dosing as required. Follow-Up Labs: Trough Vancomycin - random Labs to be done on [date and time ordered]: 12/06/20 0600 with AM labs
[2020-12-04 20:26] LABS: Eosinophil Ct. Urine 4 % (.)
[2020-12-05] VITALS (15 sets, daily range): BP systolic 79–130; BP diastolic 49–78; PULSE 58–81; RESP 16–20; TEMP 36.6–36.9; O2SAT 94–100; BMI 30.4
[2020-12-05 06:36] LABS: Absolute Lymphocyte Count 1.22 X10^3/uL (0.83-4.51); Absolute Neutrophil Count 6.3 X10^3/uL (2.0-7.7); Basophil# 0.05 X10^3/uL; Basophil% 0.5 % (0-1); Eosinophil# 0.13 X10^3/uL; Eosinophils% 1.2 % (0-5); Hematocrit 27.1 % (40-54); Hemoglobin 8.2 g/dL (13.0-16.5); Lymphocyte # 1.22 X10^3/ul (4.0); Lymphocyte % 11.7 % (19-41); Mean Corp Hgb Conc 30.3 g/dL (32-36); Mean Corpuscular Hgb 24.1 pg (27.0-32.0); Mean Corpuscular Volume 79.7 fL (80-94); Mean Platelet Vol. 10.8 fl (6.2-12.0); Monocyte# 2.43 X10^3/uL; Monocyte% 23.3 % (0-10); NRBC Flagged by Analyzer 0 % (0-5); Neutrophil # 6.34 X10^3/uL (2.7-7.7); Neutrophil % 60.6 % (47-70); POSITIVE DIFFERENTIAL YES; Platelet Count 240 K/mm3 (150-450); RBC Distribution Width SD 49.1 fl (35.1-43.9); White Blood Count 10.5 K/mm3 (4.4-11.0)
[2020-12-05 06:37] LABS: Differential Indicated SCAN CRITERIA MET
[2020-12-05 07:04] LABS: Anion Gap 10 (5-15); BUN 76 mg/dL (7-18); BUN/Creat Ratio 13.1 RATIO (10-20); Calcium,Total 7.9 mg/dL (8.5-10.1); Chloride 109 mmol/L (98-107); Creatinine, Serum 5.81 mg/dL (0.70-1.30); EST Glomerular Filtration Rate 10 mL/min (>60); Est Glom Filt Rate - Afr Amer 12 mL/min (>60); Estimated Creatinine Clearance 10.62 ml/min; Glucose 85 mg/dL (74-106); Sodium Level 141 mmol/L (136-145)
[2020-12-05] MEDS: Potassium Chloride 10mEq/100mL 10 MEQ/100 ML IV.SOLN. 100 MEQ IV BOLUS ×2 (08:49→10:28)
[2020-12-05] MEDS: Menthol/Lanolin/Calamine/Znox 113 GM Tube 1 APPLIC TOPICAL ×2 (09:48→21:06)
[2020-12-05] MEDS: Ceftriaxone 1 GM/50 ML BAG IV (10:28)
[2020-12-05] MEDS: LORazepam 0.5 MG Tablet PO (10:38)
--- NOTE | 2020-12-05 10:43 | PCM.PN.REN ---
Patient Problems: Active and Suspected Problems (Last Reviewed 12/02/20 @ 11:[address] Aramis Matthew MD) Gross hematuria (Acute) MERLE (acute kidney injury) (Acute) Debility (Acute) Dehydration (Acute) Urinary tract infection (Acute) Subjective: no nausea No vomiting No SOB - Physical Exam Vitals/I&O's: Vital Signs Temp Pulse Resp BP Pulse Ox 98.5 F 58 L 16 130/49 H 99 12/05/20 08:36 12/05/20 09:49 12/05/20 09:18 12/05/20 08:36 12/05/20 09:18 Oxygen Flow Rate (L/min) 1 Oxygen Delivery Method Room Air Weight: 99 kg Body Mass Index (BMI) 30.4 Intake and Output for Last 24 Hours 12/03/20 12/04/20 12/05/20 23:59 23:59 23:59 Intake Total 2978.75 / 2978.75 1730.00 / 1730.00 1228.33 / 1228.33 Output Total 950 / 950 300 / 300 950 / 950 Balance 2028.75 / 2028.75 1430.00 / 1430.00 278.33 / 278.33 General: Alert, Oriented x3 HEENT: Atraumatic Oral: Moist Mucosa Neck: Supple, No JVD Lungs: Clear to auscultation, Normal air movement, No rhonchi, No wheeze Cardiovascular: Regular rate, Regular Rhythm, Normal S1, Normal S2 Abdomen: Bowel Sounds Present, Soft, Non Tender, Non-Distended Extremities: No clubbing, No cyanosis, No edema Skin: No rashes Musculoskeletal: No Tenderness to Palpation of Joints or Extremities Lymphatic: No Cervical, Supraclavicular, or Inguinal Adenopathy Neurological: Cranial nerves II-XII grossly intact, Neuro grossly intact Psych/Mental Status: Normal Affect Microbiology Past 72 Hours 12/01/20 14:31 Urine, Cystoscopy Urine Culture - Final Staphylococcus aureus [place] spp Pseudomonas aeroginosa 12/01/20 12:42 Blood Culture (Wb) - Anticubital Right Blood Culture - Preliminary No growth in 48 hours. 12/01/20 13:05 Blood Culture (Wb) - Anticubital Left Blood Culture - Preliminary No growth in 48 hours. Laboratory Results 12/02/20 08:17: Eos Smear Total Cells 4 12/05/20 05:40: WBC 10.5, RBC 3.40 L, Hgb 8.2 L, Hct 27.1 L, MCV 79.7 L, MCH 24.1 L, MCHC 30.3 L, RDW Std Deviation 49.1 H, RDW Coeff of Jeff 17.0 H, Plt Count 240, MPV 10.8, Immature Gran % (Auto) 2.700 H, Neut % (Auto) 60.6, Lymph % (Auto) 11.7 L, [place] % (Auto) 23.3 H, Eos % (Auto) 1.2, Baso % (Auto) 0.5, Absolute Neuts (auto) 6.3, Absolute Lymphs (auto) 1.22, Nucleated RBC % 0 12/05/20 05:40: Sodium 141, Potassium 3.0 L, Chloride 109 H, Carbon Dioxide 22.0, Anion Gap 10, BUN 76 H, Creatinine 5.81 H, Estim Creat Clear Calc 10.62, Est GFR (MDRD) Af Amer 12 L, Est GFR (MDRD) Non-Af 10 L, BUN/Creatinine Ratio 13.1, Glucose 85, Calcium 7.9 L Current Medications Acetaminophen (Acetaminophen 325 Mg Tablet) 650 mg PO Q6H PRN PRN PRN Reason: Pain Score 1-10/Temp > 100.7 F Last Admin: 12/03/20 22:38 Dose: 650 mg Documented by: Aspirin (Aspirin 81 Mg Tab.Chew) 81 mg PO DAILY@0800 [facility] Last Admin: 12/05/20 09:41 Dose: Not Given Documented by: Calamine/Phenol (Menthol/Lanolin/Calamine/Znox 113 Gm Tube) 1 applic TOPICAL BID [facility]; Protocol Last Admin: 12/05/20 09:48 Dose: 1 applicatio Documented by: Heparin Sodium (Porcine) (Heparin Injection (Vial) 5,000 Unit/Ml Vial) 5,000 unit SC Q12 [facility] Last Admin: 12/05/20 09:41 Dose: Not Given Documented by: Ceftriaxone Sodium (Rocephin) 1 gm in 50 mls @ 100 mls/hr IV Q24 [facility] Last Admin: 12/05/20 10:28 Dose: 100 mls/hr Documented by: Sodium Bicarbonate 150 meq/ (Sodium Chloride) 1,150 mls @ 75 mls/hr IV .[id number] [facility] Last Admin: 12/05/20 08:49 Dose: 75 mls/hr Documented by: Vancomycin IV Pharmacy to Dose (1 ea/ Sodium Chloride) 500 mls @ 250 mls/hr IV PRN PRN; Protocol PRN Reason: Rx to Dose Potassium Chloride () 10 meq in 100 mls @ 100 mls/hr IV BOLUS Q1H [facility] Stop: 12/05/20 11:59 Last Infusion: 12/05/20 10:33 Dose: 80 mls/hr Documented by: Lorazepam (Lorazepam 0.5 Mg Tablet) 0.5 mg PO DAILY PRN PRN PRN Reason: ANXIETY Last Admin: 12/05/20 10:38 Dose: 0.5 mg Documented by: Metoprolol Tartrate (Metoprolol Tartrate 25 Mg Tablet) 25 mg PO BID [facility] Last Admin: 12/05/20 09:49 Dose: Not Given Documented by: Multivitamins (Multivitamins,Therapeutic Tablet) 1 tablet PO DAILYCM [facility] Last Admin: 12/05/20 09:41 Dose: Not Given Documented by: Ondansetron HCl (Ondansetron 4 Mg/2 Ml Vial) 4 mg IV Q8H PRN PRN PRN Reason: NAUSEA/VOMITING Oxycodone HCl (Oxycodone 5 Mg Tablet) 5 mg PO Q4H PRN PRN PRN Reason: Pain Score 6-10 Last Admin: 12/03/20 22:37 Dose: 5 mg Documented by: Simethicone (Simethicone 80 Mg Tablet) 80 mg PO TIDPC PRN PRN Reason: bettie abd. Last Admin: 12/04/20 17:53 Dose: 80 mg Documented by: Sodium Chloride (0.9% Saline Lock 10 Ml Syringe) 10 - 40 ml IV UD PRN PRN Reason: SALINE FLUSH Last Admin: 12/04/20 12:00 Dose: 10 ml Documented by: Medical Necessity - Tobacco Use Smoking Status: Former smoker Assessment/Plan All Active Problems (Last Reviewed 12/02/20 @ 11:[address] Aramis Matthew MD) Gross hematuria (Acute) MERLE (acute kidney injury) (Acute) Debility (Acute) Dehydration (Acute) Urinary tract infection (Acute) 1- MERLE on CKD stage 3. baseline Cr 1.8-2.4 mg/dl MERLE is likely post renal from B/L hydronephrosis.ATN is also possible Cr is slightly better but remains significantly elevated at 5.8mg/dl this am. UOP has increased Continue IVF at the current rate 75 cc/hour No need for urgent ENRICHMENT DIRECTOR. Will continue to evaluate the need of ENRICHMENT DIRECTOR daily Continue holding losartan Check RFP in am 2- Metabolic acidosis from MERLE Improved with isotonic HC03 drip. HC03 level is 21 this am Continue same rate of HC03 drip. re check HC03 in am 3- B/L hydronephrosis. Patient is s/p cystectomy with ileal conduit creation and B/L ureter stents placement in September 2020 Urology is following. Plan for stent removal and loopogram today 4- UTI: Abx as per the primary service Renal team will continue to follow Please call if any question or concern at [phone] d/w Dr. Brody Bhatia MD
[2020-12-05] MEDS: Potassium Chloride 10mEq/100mL 10 MEQ/100 ML IV.SOLN. 80 MEQ IV BOLUS ×2 (12:00→13:24)
--- NOTE | 2020-12-05 12:29 | PCM.PN.HOSP ---
Patient Problems: Active and Suspected Problems (Last Reviewed 12/02/20 @ 11:[address] Aramis Matthew MD) Gross hematuria (Acute) MERLE (acute kidney injury) (Acute) Debility (Acute) Dehydration (Acute) Urinary tract infection (Acute) Subjective: Patient seen and examined. He has no complaints today. Review systems otherwise negative. He is to go for surgery by urology later today. Remained hemodynamically stable. Potassium is 3 today. Vitals/I&O's: Vital Signs Temp Pulse Resp BP Pulse Ox 98.5 F 58 L 16 130/49 H 99 12/05/20 08:36 12/05/20 09:49 12/05/20 09:18 12/05/20 08:36 12/05/20 09:18 Oxygen Flow Rate (L/min) 1 Oxygen Delivery Method Room Air Weight: 218 lb 4.122 oz Body Mass Index (BMI) 30.4 Intake and Output for Last 24 Hours 12/03/20 12/04/20 12/05/20 23:59 23:59 23:59 Intake Total 2978.75 / 2978.75 1730.00 / 1730.00 1370.00 / 1370.00 Output Total 950 / 950 300 / 300 950 / 950 Balance 2028.75 / 2028.75 1430.00 / 1430.00 420.00 / 420.00 General: Alert, Oriented x3, Cooperative, No apparent distress HEENT: Atraumatic, PERRLA, EOMI, Normocephalic Oral: Moist Mucosa Neck: Supple, No JVD, Negative Carotid Bruits Lungs: Clear to auscultation, Normal air movement Cardiovascular: Regular rate, Regular Rhythm, Normal S1, Normal S2, No murmurs Abdomen: Bowel Sounds Present, Soft, Non Tender; ileal conduit bag contains clear urine Extremities: No clubbing, No cyanosis, No edema, Capillary Refill Less than 3 Seconds Skin: No rashes, No breakdown Musculoskeletal: - - no tenderness with palpation or movement. Lymphatic: No Cervical, Supraclavicular, or Inguinal Adenopathy Neurological: Cranial nerves II-XII grossly intact, Neuro grossly intact, Motor Exam 5/5 strength throughout Psych/Mental Status: Normal Affect, Appropriate, Alert and oriented to time, place, person, mood and affect Microbiology Past 72 Hours 12/01/20 14:31 Urine, Cystoscopy Urine Culture - Final Staphylococcus aureus Pantoea spp Pseudomonas aeroginosa 12/01/20 12:42 Blood Culture (Wb) - Anticubital Right Blood Culture - Preliminary No growth in 48 hours. 12/01/20 13:05 Blood Culture (Wb) - Anticubital Left Blood Culture - Preliminary No growth in 48 hours. Laboratory Results 12/02/20 08:17: Eos Smear Total Cells 4 12/05/20 05:40: WBC 10.5, RBC 3.40 L, Hgb 8.2 L, Hct 27.1 L, MCV 79.7 L, MCH 24.1 L, MCHC 30.3 L, RDW Std Deviation 49.1 H, RDW Coeff of Jeff 17.0 H, Plt Count 240, MPV 10.8, Immature Gran % (Auto) 2.700 H, Neut % (Auto) 60.6, Lymph % (Auto) 11.7 L, [place] % (Auto) 23.3 H, Eos % (Auto) 1.2, Baso % (Auto) 0.5, Absolute Neuts (auto) 6.3, Absolute Lymphs (auto) 1.22, Nucleated RBC % 0 12/05/20 05:40: Sodium 141, Potassium 3.0 L, Chloride 109 H, Carbon Dioxide 22.0, Anion Gap 10, BUN 76 H, Creatinine 5.81 H, Estim Creat Clear Calc 10.62, Est GFR (MDRD) Af Amer 12 L, Est GFR (MDRD) Non-Af 10 L, BUN/Creatinine Ratio 13.1, Glucose 85, Calcium 7.9 L Diagnostic Data Chest X-Ray 12/01/20 12:30 IMPRESSION: No active pulmonary disease. Electronically Signed: Santi Alvares MD at 12:47 EST Tel , Service support , Renal Ultrasound 12/01/20 15:01 IMPRESSION: Stable bilateral hydronephrosis. Electronically Signed: Cecil Newton MD (Brooks) at 16:33 EST , Service support , Current Medications Acetaminophen (Acetaminophen 325 Mg Tablet) 650 mg PO Q6H PRN PRN PRN Reason: Pain Score 1-10/Temp > 100.7 F Last Admin: 12/03/20 22:38 Dose: 650 mg Documented by: Aspirin (Aspirin 81 Mg Tab.Chew) 81 mg PO DAILY@0800 [facility] Last Admin: 12/05/20 09:41 Dose: Not Given Documented by: Calamine/Phenol (Menthol/Lanolin/Calamine/Znox 113 Gm Tube) 1 applic TOPICAL BID [facility]; Protocol Last Admin: 12/05/20 09:48 Dose: 1 applicatio Documented by: Heparin Sodium (Porcine) (Heparin Injection (Vial) 5,000 Unit/Ml Vial) 5,000 unit SC Q12 [facility] Last Admin: 12/05/20 09:41 Dose: Not Given Documented by: Ceftriaxone Sodium (Rocephin) 1 gm in 50 mls @ 100 mls/hr IV Q24 [facility] Last Infusion: 12/05/20 11:00 Dose: Infused Documented by: Sodium Bicarbonate 150 meq/ (Sodium Chloride) 1,150 mls @ 75 mls/hr IV .[id number] [facility] Last Admin: 12/05/20 08:49 Dose: 75 mls/hr Documented by: Vancomycin IV Pharmacy to Dose (1 ea/ Sodium Chloride) 500 mls @ 250 mls/hr IV PRN PRN; Protocol PRN Reason: Rx to Dose Lorazepam (Lorazepam 0.5 Mg Tablet) 0.5 mg PO DAILY PRN PRN PRN Reason: ANXIETY Last Admin: 12/05/20 10:38 Dose: 0.5 mg Documented by: Metoprolol Tartrate (Metoprolol Tartrate 25 Mg Tablet) 25 mg PO BID [facility] Last Admin: 12/05/20 09:49 Dose: Not Given Documented by: Multivitamins (Multivitamins,Therapeutic Tablet) 1 tablet PO DAILYCM [facility] Last Admin: 12/05/20 09:41 Dose: Not Given Documented by: Ondansetron HCl (Ondansetron 4 Mg/2 Ml Vial) 4 mg IV Q8H PRN PRN PRN Reason: NAUSEA/VOMITING Oxycodone HCl (Oxycodone 5 Mg Tablet) 5 mg PO Q4H PRN PRN PRN Reason: Pain Score 6-10 Last Admin: 12/03/20 22:37 Dose: 5 mg Documented by: Simethicone (Simethicone 80 Mg Tablet) 80 mg PO TIDPC PRN PRN Reason: bettie abd. Last Admin: 12/04/20 17:53 Dose: 80 mg Documented by: Sodium Chloride (0.9% Saline Lock 10 Ml Syringe) 10 - 40 ml IV UD PRN PRN Reason: SALINE FLUSH Last Admin: 12/04/20 12:00 Dose: 10 ml Documented by: STROKE Vital Signs/Narrative: Vital Signs Temp Pulse Resp BP Pulse Ox 12/05/20 09:49 58 L 12/05/20 09:18 76 16 99 12/05/20 08:36 98.5 F 75 16 130/49 H 99 Medical Necessity - Tobacco Use Smoking Status: Former smoker Assessment/Plan All Active Problems (Last Reviewed 12/02/20 @ 11:[address] 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 losartan on hold per nephro, if function does not improve after stent is removed, patient may end up needing dialysis. # Leucocytosis: chronic. stable #Non-anion gap metabolic acidosis: resolved. bicarb is 22. has been on bicarb drip . #Hypokalemia: potassium is 3. will replace and trend #History of bladder cancer s/p cystectomy: urology on board #Anemia: Hemoglobin is 8.2 S/p transfusion of 1 unit of packed red blood cell hemoglobin dropped to 6.9. Iron studies showed anemia of chronic disease as iron is low and iron saturation is low with low TIBC and ferritin is high #UTI: On vancomycin and ceftriaxone due to urine culture results. continue antibiotic for now until stent is removed. DVT prophylaxis: Heparin Inpatient E&M: 58539 Subs Hosp L2
[2020-12-05 12:54] LABS: Pathologist Review Reviewed
[2020-12-05] MEDS: Metoprolol Tartrate 25 MG Tablet PO (13:35)
[2020-12-05] MEDS: 0.9% Normal Saline 1,000 ML 100 ML IV (14:35)
--- NOTE | 2020-12-05 17:01 | PCM.OPRPT ---
Problem List (1) Dehydration Status: Acute (2) Urinary tract infection Status: Acute Qualifiers: Urinary tract infection type: acute pyelonephritis Report of Operation Date of Procedure: 12/05/20 Pre-Operative Diagnosis: Renal failure bilateral hydronephrosis history of bladder cancer Post-Operative Diagnosis: Same Surgery/Procedure Performed:: Flexible cystoscopy via the ileal conduit, removal of old stent, loopogram, placement of stent left side Description of Surgical Findings:: 80-year-old male who has advanced prostate cancer who presented to hospital with acute renal insufficiency [place] bilateral hydronephrosis today when taken to surgery to evaluate the kidneys. Patient was taken to surgery supine on the table went in with the flexible cystoscope to the ileal conduit very difficult course grabbed the existing stent and removed it I then performed a loopogram by putting a Mcpherson catheter into the ileal conduit and running contrast there was reflux of contrast on the left side but I could not get it reflux in the right side. I then could see a very dilated left ureter and left kidney. Juan Daniel put a wire up on the left side and then as a as it is advancing the stent over the wire to the left side looks like the stent in the right position. The distal end was in the kidney but the proximal end is not in the conduit. There was no way of getting the wire up on the right side so at this point I think patient will need nephrostomy tubes on both the left and right kidney for management we will probably have to have radiology also remove the stent on the left side at some point. So we will make him n.p.o. and tomorrow I will have radiology place bilateral nephrostomy tubes Type of Anesthesia:: General Drains: stent left side, not correct position. - Admit VTE Documentation VTE Present on Admission: No VTE Mechan Device Prophylaxis: SCD's
--- NOTE | 2020-12-05 17:09 | PCM.PN.BLA ---
Progress Note Patient went to the operating room today remove the old stent was able to perform a loopogram which demonstrated some reflux in the left side but not all the way up to the kidney in the left side and no reflux on the right side. Place a stent on the left side but it did not coil in the right position so I can end up having him go to radiology tomorrow for bilateral nephrostomy tubes these can be done at a CT-guided drainage. And then will set him up later on to have antegrade stents placed at an outside hospital that can do that. For now we will temporize his kidneys with nephrostomy tubes and this will be ordered for tomorrow for bilateral nephrostomy tubes. N.p.o. at midnight. STROKE Vital Signs/Narrative: Vital Signs Temp Pulse Resp BP Pulse Ox 12/05/20 13:35 75 12/05/20 13:26 97.8 F 75 16 122/67 H 97
[2020-12-05] MEDS: Heparin Injection (Vial) 5,000 UNIT/ML VIAL 5000 UNIT SC (21:10)
[2020-12-06] VITALS (17 sets, daily range): BP systolic 118–144; BP diastolic 67–93; PULSE 54–91; RESP 16–24; TEMP 36.4–37.3; O2SAT 93–100; BMI 30.5
[2020-12-06 06:07] LABS: Absolute Lymphocyte Count 1.65 X10^3/uL (0.83-4.51); Absolute Neutrophil Count 6.3 X10^3/uL (2.0-7.7); Basophil# 0.04 X10^3/uL; Basophil% 0.4 % (0-1); Eosinophil# 0.06 X10^3/uL; Eosinophils% 0.6 % (0-5); Hematocrit 27.8 % (40-54); Hemoglobin 8.4 g/dL (13.0-16.5); Lymphocyte # 1.65 X10^3/ul (4.0); Mean Corp Hgb Conc 30.2 g/dL (32-36); Mean Corpuscular Hgb 23.9 pg (27.0-32.0); Mean Platelet Vol. 10.1 fl (6.2-12.0); Monocyte# 2.04 X10^3/uL; Monocyte% 19.7 % (0-10); NRBC Flagged by Analyzer 0 % (0-5); Neutrophil # 6.29 X10^3/uL (2.7-7.7); Neutrophil % 60.9 % (47-70); POSITIVE DIFFERENTIAL YES; Platelet Count 219 K/mm3 (150-450); RBC Distribution Width CV 17.2 % (11.6-14.6); RBC Distribution Width SD 49.5 fl (35.1-43.9); Red Blood Count 3.52 M/mm3 (4.6-6.2); White Blood Count 10.3 K/mm3 (4.4-11.0)
[2020-12-06 06:10] LABS: Differential Indicated SCAN CRITERIA MET
[2020-12-06 06:41] LABS: Anion Gap 9 (5-15); BUN 73 mg/dL (7-18); BUN/Creat Ratio 13.1 RATIO (10-20); Calcium,Total 7.7 mg/dL (8.5-10.1); Chloride 109 mmol/L (98-107); Creatinine, Serum 5.56 mg/dL (0.70-1.30); EST Glomerular Filtration Rate 11 mL/min (>60); Est Glom Filt Rate - Afr Amer 13 mL/min (>60); Glucose 104 mg/dL (74-106); Potassium 3.3 mmol/L (3.5-5.1); Sodium Level 142 mmol/L (136-145)
[2020-12-06] MEDS: Potassium Chloride Oral Tablet 20 MEQ 40 MEQ PO (07:44)
[2020-12-06] MEDS: Metoprolol Tartrate 25 MG Tablet PO ×2 (07:44→21:22)
[2020-12-06] MEDS: Menthol/Lanolin/Calamine/Znox 113 GM Tube 1 APPLIC TOPICAL (07:48)
--- NOTE | 2020-12-06 08:00 | CT_ITS ---
PROCEDURE: CT GUIDANCE DURING PERCUTANEOUS NEPHROSTOMY PROCEDURE. DATE OF EXAMINATION: 12/06/2020. INDICATION: Male, 80 years old. Bilateral hydronephrosis. PHYSICIAN: Jesus Carver M.D. CONSENT: The patient''s history and physical findings were reviewed. Prior to the procedure the percutaneous nephrostomy and attempted right ureteral stent insertion were described to the patient who then signed a consent. SEDATION: 2 mg of VERSED and 50 mcg of FENTANYL intravenously. Conscious sedation was started at 10:27 AM and terminate at 11:12 AM. The patient was independently monitored by the department nurse. Individualized dose optimization techniques were utilized. DLP : 1154.72 CTD vol : 1154.72 TECHNIQUE: The patient was in the prone position. The overlying skin was prepped and draped in the usual sterile fashion. Following local anesthetic application, a 22-gauge spinal needle was placed into the right collecting system. Following appropriate tract dilatation, an 8.5 [place] cutaneous drainage catheter was placed into the right renal pelvis. 70 cc of purulent material was aspirated. The catheter was secured to the overlying skin. The patient currently the procedure well. CT/Nephrotube Placement CT IMPRESSION: 1. The percutaneous right nephrostomy catheter is in good position with the pigtail portion located in the right renal pelvis. Electronically Signed: Jesus Carver MD at 12:16 EST , Service support ,
[2020-12-06] MEDS: Midazolam 2 MG/2 ML Syringe IV (10:27)
[2020-12-06] MEDS: fentaNYL 100 MCG/2 ML Ampul IV (10:29)
[2020-12-06] MEDS: Aspirin 81 MG TAB.CHEW PO (12:27)
[2020-12-06] MEDS: Ceftriaxone 1 GM/50 ML BAG IV (12:27)
[2020-12-06] MEDS: Multivitamins,Therapeutic Tablet 1 TABLET PO (12:27)
--- NOTE | 2020-12-06 12:42 | PN_ITS ---
Patient Problems: Active and Suspected Problems (Last Reviewed 12/02/20 @ 11:[address] Aramis Matthew MD) Gross hematuria (Acute) MERLE (acute kidney injury) (Acute) Debility (Acute) Dehydration (Acute) Urinary tract infection (Acute) Subjective: Patient seen and examined. He had no complaints. He had removal of the old stents that he had a stent placed on the left side yesterday but it did not recall in the right position. Plans therefore for him to have bilateral nephrostomy tube placement on the CT-guidance today by radiology. Potassium is 3.3 and creatinine is trended down to 5.56. Vitals/I&O's: Vital Signs Temp Pulse Resp BP Pulse Ox 97.8 F 73 19 H 142/81 H 97 12/06/20 12:18 12/06/20 12:18 12/06/20 12:00 12/06/20 12:18 12/06/20 12:18 Oxygen Flow Rate (L/min) [10] 2 Oxygen Flow Rate (L/min) [9] 2 Oxygen Flow Rate (L/min) [8] 2 Oxygen Flow Rate (L/min) [7] 2 Oxygen Flow Rate (L/min) [6] 2 Oxygen Flow Rate (L/min) [5] 2 Oxygen Flow Rate (L/min) [4] 2 Oxygen Flow Rate (L/min) [3] 2 Oxygen Flow Rate (L/min) 2 Oxygen Delivery Method [10] Nasal Cannula Oxygen Delivery Method [9] Nasal Cannula Oxygen Delivery Method [8] Nasal Cannula Oxygen Delivery Method [7] Nasal Cannula Oxygen Delivery Method [6] Nasal Cannula Oxygen Delivery Method [5] Nasal Cannula Oxygen Delivery Method [4] Nasal Cannula Oxygen Delivery Method [3] Nasal Cannula Oxygen Delivery Method [2] Room Air Oxygen Delivery Method [1 ( Room Air Initial Baseline)] Oxygen Delivery Method Room Air Weight: 218 lb 4.122 oz Body Mass Index (BMI) 30.5 Intake and Output for Last 24 Hours 12/04/20 12/05/20 12/06/20 23:59 23:59 23:59 Intake Total 1730.00 / 1730.00 2571.25 / 2571.25 1137.5 / 1137.5 Output Total 300 / 300 1125 / 1325 530 / 530 Balance 1430.00 / 1430.00 1446.25 / 1246.25 607.5 / 607.5 General: Alert, Oriented x3, Cooperative, No apparent distress HEENT: Atraumatic, PERRLA, EOMI, Normocephalic Oral: Moist Mucosa Neck: Supple, No JVD, Negative Carotid Bruits Lungs: Clear to auscultation, Normal air movement Cardiovascular: Regular rate, Regular Rhythm, Normal S1, Normal S2, No murmurs Abdomen: Bowel Sounds Present, Soft, Non Tender; ileal conduit bag contains clear urine Extremities: No clubbing, No cyanosis, No edema, Capillary Refill Less than 3 Seconds Skin: No rashes, No breakdown Musculoskeletal: - - no tenderness with palpation or movement. Lymphatic: No Cervical, Supraclavicular, or Inguinal Adenopathy Neurological: Cranial nerves II-XII grossly intact, Neuro grossly intact, Motor Exam 5/5 strength throughout Psych/Mental Status: Normal Affect, Appropriate, Alert and oriented to time, place, person, mood and affect Microbiology Past 72 Hours 12/01/20 14:31 Urine, Cystoscopy Urine Culture - Final Staphylococcus aureus Pantoea spp Pseudomonas aeroginosa 12/01/20 12:42 Blood Culture (Wb) - Anticubital Right Blood Culture - Preliminary No growth in 48 hours. 12/01/20 13:05 Blood Culture (Wb) - Anticubital Left Blood Culture - Preliminary No growth in 48 hours. Laboratory Results 12/04/20 05:10: Diff Path Review Reviewed 12/06/20 06:00: Random Vancomycin 21.0 H 12/06/20 06:00: WBC 10.3, RBC 3.52 L, Hgb 8.4 L, Hct 27.8 L, MCV 79.0 L, MCH 23.9 L, MCHC 30.2 L, RDW Std Deviation 49.5 H, RDW Coeff of Jeff 17.2 H, Plt Count 219, MPV 10.1, Immature Gran % (Auto) 2.400 H, Neut % (Auto) 60.9, Lymph % (Auto) 16.0 L, [place] % (Auto) 19.7 H, Eos % (Auto) 0.6, Baso % (Auto) 0.4, Absolute Neuts (auto) 6.3, Absolute Lymphs (auto) 1.65, Nucleated RBC % 0 12/06/20 06:00: Sodium 142, Potassium 3.3 L, Chloride 109 H, Carbon Dioxide 24.0, Anion Gap 9, BUN 73 H, Creatinine 5.56 H, Estim Creat Clear Calc 11.10, Est GFR (MDRD) Af Amer 13 L, Est GFR (MDRD) Non-Af 11 L, BUN/Creatinine Ratio 13.1, Glucose 104, Calcium 7.7 L Current Medications Acetaminophen (Acetaminophen 325 Mg Tablet) 650 mg PO Q6H PRN PRN PRN Reason: Pain Score 1-10/Temp > 100.7 F Last Admin: 12/03/20 22:38 Dose: 650 mg Documented by: Aspirin (Aspirin 81 Mg Tab.Chew) 81 mg PO DAILY@0800 [facility] Last Admin: 12/06/20 12:27 Dose: 81 mg Documented by: Calamine/Phenol (Menthol/Lanolin/Calamine/Znox 113 Gm Tube) 1 applic TOPICAL BID [facility]; Protocol Last Admin: 12/06/20 07:48 Dose: 1 applicatio Documented by: Heparin Sodium (Porcine) (Heparin Injection (Vial) 5,000 Unit/Ml Vial) 5,000 unit SC Q12 [facility] Last Admin: 12/05/20 21:10 Dose: 5,000 unit Documented by: Ceftriaxone Sodium (Rocephin) 1 gm in 50 mls @ 100 mls/hr IV Q24 [facility] Last Admin: 12/06/20 12:27 Dose: 100 mls/hr Documented by: Sodium Bicarbonate 150 meq/ (Sodium Chloride) 1,150 mls @ 75 mls/hr IV .[id number] [facility] Last Infusion: 12/06/20 09:25 Dose: 0 mls/hr Documented by: Vancomycin IV Pharmacy to Dose (1 ea/ Sodium Chloride) 500 mls @ 250 mls/hr IV PRN PRN; Protocol PRN Reason: Rx to Dose Sodium Chloride () 500 mls @ 0 mls/hr IV .Q0M [facility] Stop: 12/06/20 23:59 Last Admin: 12/06/20 10:11 Dose: 15 mls/hr Documented by: Lorazepam (Lorazepam 0.5 Mg Tablet) 0.5 mg PO DAILY PRN PRN PRN Reason: ANXIETY Last Admin: 12/05/20 10:38 Dose: 0.5 mg Documented by: Metoprolol Tartrate (Metoprolol Tartrate 25 Mg Tablet) 25 mg PO BID [facility] Last Admin: 12/06/20 07:44 Dose: 25 mg Documented by: Multivitamins ([facility]it[facility],Therapeutic Tablet) [facility] Last Admin: 12/06/20 12:27 Dose: 1 tablet Documented by: Ondansetron HCl (Ondansetron 4 Mg/2 Ml Vial) 4 mg IV Q8H PRN PRN PRN Reason: NAUSEA/VOMITING Oxycodone HCl (Oxycodone 5 Mg Tablet) 5 mg PO Q4H PRN PRN PRN Reason: Pain Score 6-10 Last Admin: 12/03/20 22:37 Dose: 5 mg Documented by: Simethicone (Simethicone 80 Mg Tablet) 80 mg PO TIDPC PRN PRN Reason: bettie abd. Last Admin: 12/04/20 17:53 Dose: 80 mg Documented by: Sodium Chloride (0.9% Saline Lock 10 Ml Syringe) 10 - 40 ml IV UD PRN PRN Reason: SALINE FLUSH Last Admin: 12/04/20 12:00 Dose: 10 ml Documented by: STROKE Vital Signs/Narrative: Vital Signs Temp Pulse Pulse Pulse Pulse Pulse Pulse 12/06/20 12:18 97.8 F 73 12/06/20 12:00 86 12/06/20 11:45 74 12/06/20 11:30 78 12/06/20 11:25 78 12/06/20 11:20 73 12/06/20 11:15 76 12/06/20 10:37 76 74 79 91 77 12/06/20 10:09 72 12/06/20 10:06 72 Pulse Pulse Pulse Pulse Pulse Resp Resp 12/06/20 12:18 12/06/20 12:00 19 H 12/06/20 11:45 19 H 12/06/20 11:30 18 12/06/20 11:25 20 H 12/06/20 11:20 20 H 12/06/20 11:15 19 H 12/06/20 10:37 76 77 76 76 74 19 H 12/06/20 10:09 22 H 12/06/20 10:06 22 H Resp Resp Resp Resp Resp Resp Resp 12/06/20 12:18 12/06/20 12:00 12/06/20 11:45 12/06/20 11:30 12/06/20 11:25 12/06/20 11:20 12/06/20 11:15 12/06/20 10:37 19 H 24 H 20 H 16 22 H 16 20 H 12/06/20 10:09 12/06/20 10:06 Resp Resp BP BP BP BP BP 12/06/20 12:18 142/81 H 12/06/20 12:00 132/75 H 12/06/20 11:45 128/85 H 12/06/20 11:30 121/78 H 12/06/20 11:25 135/79 H 12/06/20 11:20 128/90 H 12/06/20 11:15 131/81 H 12/06/20 10:37 19 H 20 H 131/79 H 130/78 H 121/89 H 127/70 H 12/06/20 10:09 144/73 H 12/06/20 10:06 144/73 H BP BP BP BP BP BP Pulse Ox 12/06/20 12:18 97 12/06/20 12:00 95 12/06/20 11:45 95 12/06/20 11:30 97 12/06/20 11:25 97 12/06/20 11:20 98 12/06/20 11:15 100 12/06/20 10:37 126/78 H 131/76 H 124/75 H 126/70 H 131/79 H 130/82 H 12/06/20 10:09 98 12/06/20 10:06 98 Medical Necessity - Tobacco Use Smoking Status: Former smoker Assessment/Plan All Active Problems (Last Reviewed 12/02/20 @ 11:[address] 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 He is for nephrostomy tube placement today. * continue gentle hydration with IVF. * losartan on hold * per nephro, if function does not improve after stent is removed, patient may end up needing dialysis. * # Leucocytosis: chronic. stable #Non-anion gap metabolic acidosis: resolved. bicarb is 24. #Hypokalemia: potassium is 3.3. will replace and trend #History of bladder cancer s/p cystectomy: urology on board #Anemia: * Hemoglobin is 8.4 * S/p transfusion of 1 unit of packed red blood cell hemoglobin dropped to 6.9. * Iron studies showed anemia of chronic disease as iron is low and iron saturation is low with low TIBC and ferritin is high #UTI: * On vancomycin and ceftriaxone due to urine culture results. continue antibiotic for now until stent is removed. * Urine cultured staph aureus with Pseudomonas aeruginosa and Pantoea blood cultures were negative. * will start on oral bactrim and levofloxacin. Dc ceftriaxone DVT prophylaxis: Heparin Inpatient E&M: [id number] [facility] Hosp L2
--- NOTE | 2020-12-06 12:50 | PCM.PN.REN ---
Patient Problems: Active and Suspected Problems (Last Reviewed 12/02/20 @ 11:[address] Aramis Matthew MD) Gross hematuria (Acute) MERLE (acute kidney injury) (Acute) Debility (Acute) Dehydration (Acute) Urinary tract infection (Acute) Subjective: No nausea No vomiting. No SOB - Physical Exam Vitals/I&O's: Vital Signs Temp Pulse Resp BP Pulse Ox 97.8 F 73 19 H 142/81 H 97 12/06/20 12:18 12/06/20 12:18 12/06/20 12:00 12/06/20 12:18 12/06/20 12:18 Oxygen Flow Rate (L/min) [10] 2 Oxygen Flow Rate (L/min) [9] 2 Oxygen Flow Rate (L/min) [8] 2 Oxygen Flow Rate (L/min) [7] 2 Oxygen Flow Rate (L/min) [6] 2 Oxygen Flow Rate (L/min) [5] 2 Oxygen Flow Rate (L/min) [4] 2 Oxygen Flow Rate (L/min) [3] 2 Oxygen Flow Rate (L/min) 2 Oxygen Delivery Method [10] Nasal Cannula Oxygen Delivery Method [9] Nasal Cannula Oxygen Delivery Method [8] Nasal Cannula Oxygen Delivery Method [7] Nasal Cannula Oxygen Delivery Method [6] Nasal Cannula Oxygen Delivery Method [5] Nasal Cannula Oxygen Delivery Method [4] Nasal Cannula Oxygen Delivery Method [3] Nasal Cannula Oxygen Delivery Method [2] Room Air Oxygen Delivery Method [1 ( Room Air Initial Baseline)] Oxygen Delivery Method Room Air Weight: 99 kg Body Mass Index (BMI) 30.5 Intake and Output for Last 24 Hours 12/04/20 12/05/20 12/06/20 23:59 23:59 23:59 Intake Total 1730.00 / 1730.00 2571.25 / 2571.25 1137.5 / 1137.5 Output Total 300 / 300 1125 / 1325 530 / 530 Balance 1430.00 / 1430.00 1446.25 / 1246.25 607.5 / 607.5 General: Alert, Oriented x3 HEENT: Atraumatic Oral: Moist Mucosa Neck: Supple, No JVD Lungs: Clear to auscultation, Normal air movement, No rhonchi, No wheeze Cardiovascular: Regular rate, Regular Rhythm, Normal S1, Normal S2 Abdomen: Bowel Sounds Present, Soft, Non Tender, Non-Distended Extremities: No clubbing, No cyanosis, No edema, Clubbing Musculoskeletal: No Tenderness to Palpation of Joints or Extremities Lymphatic: No Cervical, Supraclavicular, or Inguinal Adenopathy Neurological: Cranial nerves II-XII grossly intact, Neuro grossly intact Psych/Mental Status: Appropriate Microbiology Past 72 Hours 12/01/20 14:31 Urine, Cystoscopy Urine Culture - Final Staphylococcus aureus Pantoea spp Pseudomonas aeroginosa 12/01/20 12:42 Blood Culture (Wb) - Anticubital Right Blood Culture - Preliminary No growth in 48 hours. 12/01/20 13:05 Blood Culture (Wb) - Anticubital Left Blood Culture - Preliminary No growth in 48 hours. Laboratory Results 12/04/20 05:10: Diff Path Review Reviewed 12/06/20 06:00: Random Vancomycin 21.0 H 12/06/20 06:00: WBC 10.3, RBC 3.52 L, Hgb 8.4 L, Hct 27.8 L, MCV 79.0 L, MCH 23.9 L, MCHC 30.2 L, RDW Std Deviation 49.5 H, RDW Coeff of Jeff 17.2 H, Plt Count 219, MPV 10.1, Immature Gran % (Auto) 2.400 H, Neut % (Auto) 60.9, Lymph % (Auto) 16.0 L, [place] % (Auto) 19.7 H, Eos % (Auto) 0.6, Baso % (Auto) 0.4, Absolute Neuts (auto) 6.3, Absolute Lymphs (auto) 1.65, Nucleated RBC % 0 12/06/20 06:00: Sodium 142, Potassium 3.3 L, Chloride 109 H, Carbon Dioxide 24.0, Anion Gap 9, BUN 73 H, Creatinine 5.56 H, Estim Creat Clear Calc 11.10, Est GFR (MDRD) Af Amer 13 L, Est GFR (MDRD) Non-Af 11 L, BUN/Creatinine Ratio 13.1, Glucose 104, Calcium 7.7 L Current Medications Acetaminophen (Acetaminophen 325 Mg Tablet) 650 mg PO Q6H PRN PRN PRN Reason: Pain Score 1-10/Temp > 100.7 F Last Admin: 12/03/20 22:38 Dose: 650 mg Documented by: Aspirin (Aspirin 81 Mg Tab.Chew) 81 mg PO DAILY@0800 [facility] Last Admin: 12/06/20 12:27 Dose: 81 mg Documented by: Calamine/Phenol (Menthol/Lanolin/Calamine/Znox 113 Gm Tube) 1 applic TOPICAL BID [facility]; Protocol Last Admin: 12/06/20 07:48 Dose: 1 applicatio Documented by: Heparin Sodium (Porcine) (Heparin Injection (Vial) 5,000 Unit/Ml Vial) 5,000 unit SC Q12 [facility] Last Admin: 12/05/20 21:10 Dose: 5,000 unit Documented by: Ceftriaxone Sodium (Rocephin) 1 gm in 50 mls @ 100 mls/hr IV Q24 [facility] Last Admin: 12/06/20 12:27 Dose: 100 mls/hr Documented by: Sodium Bicarbonate 150 meq/ (Sodium Chloride) 1,150 mls @ 75 mls/hr IV .[id number] [facility] Last Infusion: 12/06/20 09:25 Dose: 0 mls/hr Documented by: Vancomycin IV Pharmacy to Dose (1 ea/ Sodium Chloride) 500 mls @ 250 mls/hr IV PRN PRN; Protocol PRN Reason: Rx to Dose Sodium Chloride () 500 mls @ 0 mls/hr IV .Q0M [facility] Stop: 12/06/20 23:59 Last Admin: 12/06/20 10:11 Dose: 15 mls/hr Documented by: Lorazepam (Lorazepam 0.5 Mg Tablet) 0.5 mg PO DAILY PRN PRN PRN Reason: ANXIETY Last Admin: 12/05/20 10:38 Dose: 0.5 mg Documented by: Metoprolol Tartrate (Metoprolol Tartrate 25 Mg Tablet) 25 mg PO BID [facility] Last Admin: 12/06/20 07:44 Dose: 25 mg Documented by: Multivitamins ([facility]ivitamins,Therapeutic Tablet) [facility] Last Admin: 12/06/20 12:27 Dose: 1 tablet Documented by: Ondansetron HCl (Ondansetron 4 Mg/2 Ml Vial) 4 mg IV Q8H PRN PRN PRN Reason: NAUSEA/VOMITING Oxycodone HCl (Oxycodone 5 Mg Tablet) 5 mg PO Q4H PRN PRN PRN Reason: Pain Score 6-10 Last Admin: 12/03/20 22:37 Dose: 5 mg Documented by: Simethicone (Simethicone 80 Mg Tablet) 80 mg PO TIDPC PRN PRN Reason: bettie abd. Last Admin: 12/04/20 17:53 Dose: 80 mg Documented by: Sodium Chloride (0.9% Saline Lock 10 Ml Syringe) 10 - 40 ml IV UD PRN PRN Reason: SALINE FLUSH Last Admin: 12/04/20 12:00 Dose: 10 ml Documented by: Medical Necessity - Tobacco Use Smoking Status: Former smoker Assessment/Plan All Active Problems (Last Reviewed 12/02/20 @ 11:[address] Aramis Matthew MD) Gross hematuria (Acute) MERLE (acute kidney injury) (Acute) Debility (Acute) Dehydration (Acute) Urinary tract infection (Acute) 1- MERLE on CKD stage 3. baseline Cr 1.8-2.4 mg/dl MERLE is likely post renal from B/L hydronephrosis.ATN is also possible S/P cystoscopy with pyelogram 12/05. s/p R PNT placement 12/06 Cr is slightly better but remains significantly elevated at 5.5mg/dl this am. UOP is adequate d/c IVF No need for urgent SCHOOL FUNDRAISING DIRECTOR. Will continue to evaluate the need of SCHOOL FUNDRAISING DIRECTOR daily Continue holding losartan Check RFP in am 2- Metabolic acidosis from MERLE resolved 3- B/L hydronephrosis. Patient is s/p cystectomy with ileal conduit creation and B/L ureter stents placement in September 2020 s/p cystoscopy with pyelogram 12/05 s/p R PNT placement 12/06 Urology is following. 4- UTI: Abx as per the primary service Renal team will continue to follow Please call if any question or concern at [phone] Marian Bhatia MD
--- NOTE | 2020-12-06 14:34 | CASEMGMT ---
LIAM VAZQUEZ in to discuss discharge planning with patient. Patient wishes to go home with [facility]. RN CM encouraged patient to continue to work with therapy to see if patient will be able to safely ambulate. Patient voiced understanding. RN CM will continue to monitor progress with therapy and plan for a safe discharge.
[2020-12-06] MEDS: levoFLOXacin 500 MG Tablet PO (15:02)
--- NOTE | 2020-12-06 17:18 | NURSING ---
Student documentation reviewed.
[2020-12-06] MEDS: Smz/Tmp Ds Tablet 1 TABLET PO (21:21)
[2020-12-06] MEDS: Heparin Injection (Vial) 5,000 UNIT/ML VIAL 5000 UNIT SC (21:22)
[2020-12-07] VITALS (11 sets, daily range): BP systolic 134–144; BP diastolic 75–88; PULSE 61–90; RESP 14–20; TEMP 36.2–37.1; O2SAT 92–98
[2020-12-07 08:29] LABS: Absolute Neutrophil Count 8.1 X10^3/uL (2.0-7.7); Basophil# 0.04 X10^3/uL; Basophil% 0.3 % (0-1); Eosinophil# 0.09 X10^3/uL; Eosinophils% 0.7 % (0-5); Hematocrit 26.9 % (40-54); Hemoglobin 7.9 g/dL (13.0-16.5); Lymphocyte % 12.2 % (19-41); Mean Corp Hgb Conc 29.4 g/dL (32-36); Mean Corpuscular Hgb 23.7 pg (27.0-32.0); Mean Corpuscular Volume 80.8 fL (80-94); Mean Platelet Vol. 10.6 fl (6.2-12.0); Monocyte% 17.9 % (0-10); NRBC Flagged by Analyzer 0 % (0-5); Neutrophil # 8.12 X10^3/uL (2.7-7.7); Neutrophil % 66.1 % (47-70); POSITIVE DIFFERENTIAL YES; Platelet Count 203 K/mm3 (150-450); RBC Distribution Width CV 17.2 % (11.6-14.6); RBC Distribution Width SD 49.8 fl (35.1-43.9); Red Blood Count 3.33 M/mm3 (4.6-6.2); White Blood Count 12.3 K/mm3 (4.4-11.0)
[2020-12-07 08:30] LABS: Differential Indicated SCAN CRITERIA MET
--- NOTE | 2020-12-07 08:46 | NURSING ---
Pt requesting that his urostomy appliance be changed today. changes his appliance at home. removed appliance. stoma is oval in shape and sits slightly above the skin level. peristomal skin is intact. cleansed wound with warm water. pat dry. applied a new Aurelio convex appliance. patient tolerated well. pt very appreciative of appliance change.
[2020-12-07 08:49] LABS: Anion Gap 9 (5-15); BUN 74 mg/dL (7-18); BUN/Creat Ratio 13.8 RATIO (10-20); Chloride 110 mmol/L (98-107); Creatinine, Serum 5.36 mg/dL (0.70-1.30); EST Glomerular Filtration Rate 11 mL/min (>60); Est Glom Filt Rate - Afr Amer 13 mL/min (>60); Estimated Creatinine Clearance 11.16 ml/min; Glucose 113 mg/dL (74-106); Potassium 3.6 mmol/L (3.5-5.1); Sodium Level 143 mmol/L (136-145)
--- NOTE | 2020-12-07 09:14 | CASEMGMT ---
Patient was provided a list of [facility] providers including quality and resource use data and consistent with the patient?s preferred geographic region, medical needs, and insurance network. The patient?s preferred provider is [facility] as he has had the agency prior. LOREN Martinez intake at [facility], made referral for SN, PT and OT. Will continue to follow progress with therapy. CM will continue to follow with this patient and plan for safe dc.
[2020-12-07] MEDS: Metoprolol Tartrate 25 MG Tablet PO ×2 (10:25→21:21)
[2020-12-07] MEDS: Multivitamins,Therapeutic Tablet 1 TABLET PO (10:25)
[2020-12-07] MEDS: Menthol/Lanolin/Calamine/Znox 113 GM Tube 1 APPLIC TOPICAL ×2 (10:29→21:22)
[2020-12-07] MEDS: Heparin Injection (Vial) 5,000 UNIT/ML VIAL 5000 UNIT SC ×2 (10:31→21:21)
[2020-12-07] MEDS: Aspirin 81 MG TAB.CHEW PO (10:32)
[2020-12-07] MEDS: Smz/Tmp Ds Tablet 0.5 TABLET PO ×2 (10:45→17:55)
--- NOTE | 2020-12-07 11:15 | PN_ITS ---
Patient Problems: Active and Suspected Problems (Last Reviewed 12/02/20 @ 11:[address] Aramis Matthew MD) Gross hematuria (Acute) MERLE (acute kidney injury) (Acute) Debility (Acute) Dehydration (Acute) Urinary tract infection (Acute) Subjective: Patient seen and examined. He had no complaints. He had right nephrostomy catheter placement yesterday. He was made hemodynamically stable. Creatinine is down to 5.36 today. Globin is 7.9 and WBC is 12.3. Vitals/I&O's: Vital Signs Temp Pulse Resp BP Pulse Ox 98.4 F 79 14 136/75 H 95 12/07/20 10:13 12/07/20 10:25 12/07/20 10:13 12/07/20 10:12/07/20 10:13 Oxygen Flow Rate (L/min) [10] 2 Oxygen Flow Rate (L/min) [9] 2 Oxygen Flow Rate (L/min) [8] 2 Oxygen Flow Rate (L/min) [7] 2 Oxygen Flow Rate (L/min) [6] 2 Oxygen Flow Rate (L/min) [5] 2 Oxygen Flow Rate (L/min) [4] 2 Oxygen Flow Rate (L/min) [3] 2 Oxygen Flow Rate (L/min) 2 Oxygen Delivery Method [10] Nasal Cannula Oxygen Delivery Method [9] Nasal Cannula Oxygen Delivery Method [8] Nasal Cannula Oxygen Delivery Method [7] Nasal Cannula Oxygen Delivery Method [6] Nasal Cannula Oxygen Delivery Method [5] Nasal Cannula Oxygen Delivery Method [4] Nasal Cannula Oxygen Delivery Method [3] Nasal Cannula Oxygen Delivery Method [2] Room Air Oxygen Delivery Method [1 ( Room Air Initial Baseline)] Oxygen Delivery Method Room Air Weight: 218 lb 4.122 oz Body Mass Index (BMI) 30.5 Intake and Output for Last 24 Hours 12/05/20 12/06/20 12/07/20 23:59 23:59 23:59 Intake Total 2571.25 / 2571.25 1816.0 / 1816.0 50 / 50 Output Total 1125 / 1325 1830 / 1830 670 / 670 Balance 1446.25 / 1246.25 -14.0 / -14.0 -620 / -620 Microbiology Past 72 Hours 12/01/20 13:05 Blood Culture (Wb) - Anticubital Left Blood Culture - Final No growth in 5 days. 12/01/20 12:42 Blood Culture (Wb) - Anticubital Right Blood Culture - Final No growth in 5 days. 12/01/20 14:31 Urine, Cystoscopy Urine Culture - Final Staphylococcus aureus Pantoea spp Pseudomonas aeroginosa Laboratory Results 12/07/20 07:49: WBC 12.3 H, RBC 3.33 L, Hgb 7.9 L, Hct 26.9 L, MCV 80.8, MCH 23.7 L, MCHC 29.4 L, RDW Std Deviation 49.8 H, RDW Coeff of Jeff 17.2 H, Plt Count 203, MPV 10.6, Immature Gran % (Auto) 2.800 H, Neut % (Auto) 66.1, Lymph % (Auto) 12.2 L, [place] % (Auto) 17.9 H, Eos % (Auto) 0.7, Baso % (Auto) 0.3, Absolute Neuts (auto) 8.1 H, Absolute Lymphs (auto) 1.50, Nucleated RBC % 0, Differential Comment COMMENT, Diff Path Review May foll 12/07/20 07:49: Sodium 143, Potassium 3.6, Chloride 110 H, Carbon Dioxide 24.0, Anion Gap 9, BUN 74 H, Creatinine 5.36 H, Estim Creat Clear Calc 11.16, Est GFR (MDRD) Af Amer 13 L, Est GFR (MDRD) Non-Af 11 L, BUN/Creatinine Ratio 13.8, Glucose 113 H, Calcium 8.0 L Current Medications Acetaminophen (Acetaminophen 325 Mg Tablet) 650 mg PO Q6H PRN PRN PRN Reason: Pain Score 1-10/Temp > 100.7 F Last Admin: 12/03/20 22:38 Dose: 650 mg Documented by: Aspirin (Aspirin 81 Mg Tab.Chew) 81 mg PO DAILY@0800 [facility] Last Admin: 12/07/20 10:32 Dose: 81 mg Documented by: Calamine/Phenol (Menthol/Lanolin/Calamine/Znox 113 Gm Tube) 1 applic TOPICAL BID [facility]; Protocol Last Admin: 12/07/20 10:29 Dose: 1 applicatio Documented by: Heparin Sodium (Porcine) (Heparin Injection (Vial) 5,000 Unit/Ml Vial) 5,000 unit SC Q12 [facility] Last Admin: 12/07/20 10:31 Dose: 5,000 unit Documented by: Levofloxacin (Levofloxacin 500 Mg Tablet) 250 mg PO Q48@0600 [facility] Lorazepam (Lorazepam 0.5 Mg Tablet) 0.5 mg PO DAILY PRN PRN PRN Reason: ANXIETY Last Admin: 12/05/20 10:38 Dose: 0.5 mg Documented by: Metoprolol Tartrate (Metoprolol Tartrate 25 Mg Tablet) 25 mg PO BID [facility] Last Admin: 12/07/20 10:25 Dose: 25 mg Documented by: Multivitamins (Multivitamins,Therapeutic Tablet) [facility] Last Admin: 12/07/20 10:25 Dose: 1 tablet Documented by: Ondansetron HCl (Ondansetron 4 Mg/2 Ml Vial) 4 mg IV Q8H PRN PRN PRN Reason: NAUSEA/VOMITING Oxycodone HCl (Oxycodone 5 Mg Tablet) 5 mg PO Q4H PRN PRN PRN Reason: Pain Score 6-10 Last Admin: 12/03/20 22:37 Dose: 5 mg Documented by: Simethicone (Simethicone 80 Mg Tablet) 80 mg PO TIDPC PRN PRN Reason: bettie abd. Last Admin: 12/04/20 17:53 Dose: 80 mg Documented by: Sodium Chloride (0.9% Saline Lock 10 Ml Syringe) 10 - 40 ml IV UD PRN PRN Reason: SALINE FLUSH Last Admin: 12/04/20 12:00 Dose: 10 ml Documented by: Trimethoprim/Sulfamethoxazole (Smz/Tmp Ds Tablet) 0.[facility] Last Admin: 12/07/20 10:45 Dose: 0.5 tablet Documented by: STROKE Vital Signs/Narrative: Vital Signs Temp Pulse Resp BP Pulse Ox 12/07/20 10:25 79 136/75 H 12/07/20 10:13 98.4 F 79 14 136/75 H 95 12/07/20 08:57 90 14 95 12/07/20 08:33 97.1 F L 90 14 144/77 H 95 12/07/20 08:15 97.1 F L 90 14 144/77 H 95 Medical Necessity - Tobacco Use Smoking Status: Former smoker Assessment/Plan All Active Problems (Last Reviewed 12/02/20 @ 11:[address] 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 * continue gentle hydration with IVF. * losartan on hold * per nephro, if function does not improve after stent is removed, patient may end up needing dialysis. * # Leucocytosis: chronic. stable #Non-anion gap metabolic acidosis: resolved. bicarb is 24. #Hypokalemia: potassium is 3.6. will replace and trend #History of bladder cancer s/p cystectomy: urology on board #Anemia: * Hemoglobin is 7.9 * S/p transfusion of 1 unit of packed red blood cell hemoglobin dropped to 6.9. * Iron studies showed anemia of chronic disease as iron is low and iron saturation is low with low TIBC and ferritin is high #UTI: * Urine cultured staph aureus with Pseudomonas aeruginosa and Pantoea blood cultures were negative. * on oral bactrim and levofloxacin now DVT prophylaxis: Heparin Inpatient E&M: 94660 Subs Hosp L2
--- NOTE | 2020-12-07 13:00 | CASEMGMT ---
Social Work Referral: depression, possible resources Met with patient. Introduced self and role. Pt laying in bed, appeared withdrawn, down. Began open-ended conversation. Offered to assist pt with any needs. Inquired if pt had any issues/needs. Pt stated he just wants to get stronger and get home. Pt stated he was seen by therapy this date, which is the first day he was out of bed since surgery. Inquired about mood. Pt stated good, I'm fine. However, began getting tearful and quiet, but not expressing feelings initially. Provided emotional support and expressed SW is here to assist - encouraged to express feelings. Pt began explaining he wants to be able to go home, be stronger, not have his assist him. Overall, loss of independence and discouraged with having 3 recent falls. It appears pt blames self for falls. Inquired about assist level with therapy today- x2 assist. Inquired if he feels he will be safe at home and if could assist him physically. Pt unsure - stating probably with x2 assist since it's just my and I. Inquired about rehab until stronger before returning home. Pt reluctant to answer - became tearful again. Inquired about hesitation and thoughts on SNFs. Encouraged pt about considering SNFs with facts and further information. Pt ultimately agreed he would consider and inquired about places. Provided list of providers in network with insurance, desired location, can meet medical needs with quality and resources data. Explained Medicare benefit in SNFs. Pt inquired about TCU. Offered to make referral but unsure about DC timeframe for pt and bed availability in TCU. Encouraged to pick alternative facility. Pt stated his dtr will be in to visit today and will discuss with her. Explained SW to follow up. Referral made to TCU - no bed availability until 12/17, potentially. Spoke with pt's nurse about DC timeframe - pt is stabilizing will most likely DC prior to that. Followed up with pt - explained TCU full but will keep on list just in case there are changes. Encouraged to pick alternative facility or CM has [facility] set up if pt chooses to DC home. Pt expressed understanding and appreciative of SW assistance. SW to continue to follow. Grace Harper, BOAT BUILDER WORKFORCE SPECIALIST
--- NOTE | 2020-12-07 14:28 | PN.RENAL_ITS ---
Patient Problems: Active and Suspected Problems (Last Reviewed 12/02/20 @ 11:[address] Aramis Matthew MD) Gross hematuria (Acute) MERLE (acute kidney injury) (Acute) Debility (Acute) Dehydration (Acute) Urinary tract infection (Acute) Subjective: No complaints today. No N/V/SOB No diarrhea - Physical Exam Vitals/I&O's: Vital Signs Temp Pulse Resp BP Pulse Ox 97.2 F L 67 16 134/75 H 97 12/07/20 13:07 12/07/20 13:07 12/07/20 13:07 12/07/20 13:07 12/07/20 13:07 Oxygen Flow Rate (L/min) [10] 2 Oxygen Flow Rate (L/min) [9] 2 Oxygen Flow Rate (L/min) [8] 2 Oxygen Flow Rate (L/min) [7] 2 Oxygen Flow Rate (L/min) [6] 2 Oxygen Flow Rate (L/min) [5] 2 Oxygen Flow Rate (L/min) [4] 2 Oxygen Flow Rate (L/min) [3] 2 Oxygen Flow Rate (L/min) 2 Oxygen Delivery Method [10] Nasal Cannula Oxygen Delivery Method [9] Nasal Cannula Oxygen Delivery Method [8] Nasal Cannula Oxygen Delivery Method [7] Nasal Cannula Oxygen Delivery Method [6] Nasal Cannula Oxygen Delivery Method [5] Nasal Cannula Oxygen Delivery Method [4] Nasal Cannula Oxygen Delivery Method [3] Nasal Cannula Oxygen Delivery Method [2] Room Air Oxygen Delivery Method [1 ( Room Air Initial Baseline)] Oxygen Delivery Method Room Air Weight: 99 kg Body Mass Index (BMI) 30.5 Intake and Output for Last 24 Hours 12/05/20 12/06/20 12/07/20 23:59 23:59 23:59 Intake Total 2571.25 / 2571.25 1816.0 / 1816.0 450 / 450 Output Total 1125 / 1325 1830 / 1830 1420 / 1420 Balance 1446.25 / 1246.25 -14.0 / -14.0 -970 / -970 General: Alert, Oriented x3 HEENT: Atraumatic Oral: Moist Mucosa Neck: Supple, No JVD Lungs: Clear to auscultation, Normal air movement, No rhonchi, No wheeze Cardiovascular: Regular rate, Regular Rhythm, Normal S1, Normal S2 Abdomen: Bowel Sounds Present, Soft, Non Tender, Non-Distended Extremities: No clubbing, No cyanosis, No edema Skin: No rashes Musculoskeletal: No Tenderness to Palpation of Joints or Extremities Lymphatic: No Cervical, Supraclavicular, or Inguinal Adenopathy Neurological: Cranial nerves II-XII grossly intact, Neuro grossly intact Psych/Mental Status: Appropriate Microbiology Past 72 Hours 12/06/20 11:12 Urine, Random Urine Culture - Preliminary Staphylococcus aureus 12/01/20 13:05 Blood Culture (Wb) - Anticubital Left Blood Culture - Final No growth in 5 days. 12/01/20 12:42 Blood Culture (Wb) - Anticubital Right Blood Culture - Final No growth in 5 days. 12/01/20 14:31 Urine, Cystoscopy Urine Culture - Final Staphylococcus aureus Pantoea spp Pseudomonas aeroginosa Laboratory Results 12/07/20 07:49: WBC 12.3 H, RBC 3.33 L, Hgb 7.9 L, Hct 26.9 L, MCV 80.8, MCH 23.7 L, MCHC 29.4 L, RDW Std Deviation 49.8 H, RDW Coeff of Jeff 17.2 H, Plt Count 203, MPV 10.6, Immature Gran % (Auto) 2.800 H, Neut % (Auto) 66.1, Lymph % (Auto) 12.2 L, [place] % (Auto) 17.9 H, Eos % (Auto) 0.7, Baso % (Auto) 0.3, Absolute Neuts (auto) 8.1 H, Absolute Lymphs (auto) 1.50, Nucleated RBC % 0, Differential Comment COMMENT, Diff Path Review February foll 12/07/20 07:49: Sodium 143, Potassium 3.6, Chloride 110 H, Carbon Dioxide 24.0, Anion Gap 9, BUN 74 H, Creatinine 5.36 H, Estim Creat Clear Calc 11.16, Est GFR (MDRD) Af Amer 13 L, Est GFR (MDRD) Non-Af 11 L, BUN/Creatinine Ratio 13.8, Glucose 113 H, Calcium 8.0 L Current Medications Acetaminophen (Acetaminophen 325 Mg Tablet) 650 mg PO Q6H PRN PRN PRN Reason: Pain Score 1-10/Temp > 100.7 F Last Admin: 12/03/20 22:38 Dose: 650 mg Documented by: Aspirin (Aspirin 81 Mg Tab.Chew) 81 mg PO DAILY@0800 [facility] Last Admin: 12/07/20 10:32 Dose: 81 mg Documented by: Calamine/Phenol (Menthol/Lanolin/Calamine/Znox 113 Gm Tube) 1 applic TOPICAL BID [facility]; Protocol Last Admin: 12/07/20 10:29 Dose: 1 applicatio Documented by: Heparin Sodium (Porcine) (Heparin Injection (Vial) 5,000 Unit/Ml Vial) 5,000 unit SC Q12 [facility] Last Admin: 12/07/20 10:31 Dose: 5,000 unit Documented by: Levofloxacin (Levofloxacin 500 Mg Tablet) 250 mg PO Q48@0600 [facility] Lorazepam (Lorazepam 0.5 Mg Tablet) 0.5 mg PO DAILY PRN PRN PRN Reason: ANXIETY Last Admin: 12/05/20 10:38 Dose: 0.5 mg Documented by: Metoprolol Tartrate (Metoprolol Tartrate 25 Mg Tablet) 25 mg PO BID [facility] Last Admin: 12/07/20 10:25 Dose: 25 mg Documented by: Multivitamins (Multivitamins,Therapeutic Tablet) [facility] Last Admin: 12/07/20 10:25 Dose: 1 tablet Documented by: Ondansetron HCl (Ondansetron 4 Mg/2 Ml Vial) 4 mg IV Q8H PRN PRN PRN Reason: NAUSEA/VOMITING Oxycodone HCl (Oxycodone 5 Mg Tablet) 5 mg PO Q4H PRN PRN PRN Reason: Pain Score 6-10 Last Admin: 12/03/20 22:37 Dose: 5 mg Documented by: Simethicone (Simethicone 80 Mg Tablet) 80 mg PO TIDPC PRN PRN Reason: bettie abd. Last Admin: 12/07/20 13:08 Dose: 80 mg Documented by: Sodium Chloride (0.9% Saline Lock 10 Ml Syringe) 10 - 40 ml IV UD PRN PRN Reason: SALINE FLUSH Last Admin: 12/04/20 12:00 Dose: 10 ml Documented by: Trimethoprim/Sulfamethoxazole (Smz/Tmp Ds Tablet) [facility] Last Admin: 12/07/20 10:45 Dose: 0.5 tablet Documented by: Medical Necessity - Tobacco Use Smoking Status: Former smoker Assessment/Plan All Active Problems (Last Reviewed 12/02/20 @ 11:[address] Aramis Matthew MD) Gross hematuria (Acute) MERLE (acute kidney injury) (Acute) Debility (Acute) Dehydration (Acute) Urinary tract infection (Acute) 1- MERLE on CKD stage 3. baseline Cr 1.8-2.4 mg/dl MERLE is likely post renal from B/L hydronephrosis.ATN is also possible S/P cystoscopy with pyelogram 12/05. s/p R PNT placement 12/06 Cr is slightly better but remains significantly elevated at 5.3mg/dl this am. UOP is adequate No need for urgent RESIDENTIAL ROOFER. Continue holding losartan Check RFP in am 2- Metabolic acidosis from MERLE resolved 3- B/L hydronephrosis. Patient is s/p cystectomy with ileal conduit creation and B/L ureter stents placement in September 2020 s/p cystoscopy with pyelogram 12/05 s/p R PNT placement 12/06 Urology is following. 4- UTI: Abx as per the primary service Renal team will continue to follow Please call if any question or concern at [phone] Marian Bhatia MD
--- NOTE | 2020-12-07 15:13 | CASEMGMT ---
Social Work SW called to pt room to meet with pt and daughter. SW reviewed discharge plan. Pt is hopeful he can return home with at time of discharge, however pt is having functional limitations and is uncertain if he can return home. If pt would need SNF for short term rehab prior to return home pt and dgt stating preferred provider is 1. TCU 2. [facility]. SW notified pt TCU does not currently have bed availability. Phone call to [facility] and they would consider referral. Referral information faxed. Pt and dgt notified. SW will follow up with pt on Thursday to finalize d/c plan. Plan: Home with home health vs. SNF [facility]
[2020-12-08] VITALS (7 sets, daily range): BP systolic 107–143; BP diastolic 70–76; PULSE 72–97; RESP 16–22; TEMP 36.5–36.9; O2SAT 94–98
[2020-12-08] MEDS: levoFLOXacin 500 MG Tablet 250 MG PO (05:58)
[2020-12-08 08:20] LABS: Absolute Lymphocyte Count 1.54 X10^3/uL (0.83-4.51); Absolute Neutrophil Count 8.5 X10^3/uL (2.0-7.7); Basophil# 0.04 X10^3/uL; Basophil% 0.3 % (0-1); Eosinophil# 0.11 X10^3/uL; Eosinophils% 0.9 % (0-5); Hematocrit 27.5 % (40-54); Hemoglobin 8.1 g/dL (13.0-16.5); Lymphocyte # 1.54 X10^3/ul (4.0); Lymphocyte % 11.9 % (19-41); Mean Corp Hgb Conc 29.5 g/dL (32-36); Mean Corpuscular Hgb 23.5 pg (27.0-32.0); Mean Corpuscular Volume 79.7 fL (80-94); Mean Platelet Vol. 10.6 fl (6.2-12.0); Monocyte# 2.17 X10^3/uL; Monocyte% 16.8 % (0-10); NRBC Flagged by Analyzer 0 % (0-5); Neutrophil # 8.51 X10^3/uL (2.7-7.7); POSITIVE DIFFERENTIAL YES; Platelet Count 208 K/mm3 (150-450); RBC Distribution Width CV 17.4 % (11.6-14.6); RBC Distribution Width SD 50.7 fl (35.1-43.9); Red Blood Count 3.45 M/mm3 (4.6-6.2); White Blood Count 12.9 K/mm3 (4.4-11.0)
[2020-12-08 08:22] LABS: Differential Indicated SCAN CRITERIA MET
[2020-12-08 08:34] LABS: Anion Gap 10 (5-15); BUN 67 mg/dL (7-18); BUN/Creat Ratio 12.9 RATIO (10-20); Calcium,Total 8.1 mg/dL (8.5-10.1); Chloride 110 mmol/L (98-107); Creatinine, Serum 5.21 mg/dL (0.70-1.30); EST Glomerular Filtration Rate 11 mL/min (>60); Est Glom Filt Rate - Afr Amer 14 mL/min (>60); Estimated Creatinine Clearance 11.48 ml/min; Glucose 103 mg/dL (74-106); Potassium 3.7 mmol/L (3.5-5.1); Sodium Level 145 mmol/L (136-145)
[2020-12-08] MEDS: Aspirin 81 MG TAB.CHEW PO (09:02)
[2020-12-08] MEDS: Smz/Tmp Ds Tablet 0.5 TABLET PO ×2 (09:02→17:18)
[2020-12-08] MEDS: Multivitamins,Therapeutic Tablet 1 TABLET PO (09:02)
[2020-12-08] MEDS: Menthol/Lanolin/Calamine/Znox 113 GM Tube 1 APPLIC TOPICAL ×2 (09:02→21:20)
--- NOTE | 2020-12-08 09:13 | CON.PCM_ITS ---
Problem List (1) Dehydration Status: Acute (2) Urinary tract infection Status: Acute Qualifiers: Urinary tract infection type: acute pyelonephritis - Consult Date of Consult: 12/08/20 + 80-year-old male who is status post a an antegrade stent placement on the left side the stent is not in perfect position but it is working well since he is making urine from his ileal conduit. I was not able to put a stent on the right side and he had no reflux of contrast up the right ureter so he underwent a percutaneous nephrostomy tube placement on the right side which is now making adequate urine. His creatinine still high but hopefully with decompression of both his kidneys with the right nephrostomy tube in the left stent that his creatinine will improve. He still very weak and still poor p.o. intake long- term prognosis is guarded he probably will need to go to a skilled facility to improve and strengthen we will keep nephrostomy tube in place and stent in place.
[2020-12-08] MEDS: Heparin Injection (Vial) 5,000 UNIT/ML VIAL 5000 UNIT SC ×2 (09:50→21:17)
[2020-12-08] MEDS: Metoprolol Tartrate 25 MG Tablet PO ×2 (09:50→21:17)
--- NOTE | 2020-12-08 11:41 | PCM.PN.HOSP ---
Patient Problems: Active and Suspected Problems (Last Reviewed 12/02/20 @ 11:[address] Aramis Matthew MD) Gross hematuria (Acute) MERLE (acute kidney injury) (Acute) Debility (Acute) Dehydration (Acute) Urinary tract infection (Acute) Subjective: Patient seen and examined. He had no complaints today. He was working with physical and occupational therapy at time of review. Review of symptoms otherwise negative. Creatinine is 5.21 today. WBC has trended up slightly to 12.9. Vitals/I&O's: Vital Signs Temp Pulse Resp BP Pulse Ox 97.9 F 97 22 H 107/70 97 12/08/20 09:49 12/08/20 09:50 12/08/20 09:49 12/08/20 09:49 12/08/20 09:49 Oxygen Flow Rate (L/min) [10] 2 Oxygen Flow Rate (L/min) [9] 2 Oxygen Flow Rate (L/min) [8] 2 Oxygen Flow Rate (L/min) [7] 2 Oxygen Flow Rate (L/min) [6] 2 Oxygen Flow Rate (L/min) [5] 2 Oxygen Flow Rate (L/min) [4] 2 Oxygen Flow Rate (L/min) [3] 2 Oxygen Flow Rate (L/min) 2 Oxygen Delivery Method [10] Nasal Cannula Oxygen Delivery Method [9] Nasal Cannula Oxygen Delivery Method [8] Nasal Cannula Oxygen Delivery Method [7] Nasal Cannula Oxygen Delivery Method [6] Nasal Cannula Oxygen Delivery Method [5] Nasal Cannula Oxygen Delivery Method [4] Nasal Cannula Oxygen Delivery Method [3] Nasal Cannula Oxygen Delivery Method [2] Room Air Oxygen Delivery Method [1 ( Room Air Initial Baseline)] Oxygen Delivery Method Room Air Weight: 218 lb 4.122 oz Body Mass Index (BMI) 30.5 Intake and Output for Last 24 Hours 12/06/20 12/07/20 12/08/20 23:59 23:59 23:59 Intake Total 1816.0 / 1816.0 850 / 850 Output Total 1830 / 1830 2220 / 2220 1475 / 1475 Balance -14.0 / -14.0 -1370 / -1370 -1475 / -1475 General: Alert, Oriented x3, Cooperative, No apparent distress HEENT: Atraumatic, PERRLA, EOMI, Normocephalic Oral: Moist Mucosa Neck: Supple, No JVD, Negative Carotid Bruits Lungs: Clear to auscultation, Normal air movement Cardiovascular: Regular rate, Regular Rhythm, Normal S1, Normal S2, No murmurs Abdomen: Bowel Sounds Present, Soft, Non Tender; ileal conduit bag contains clear urine Extremities: No clubbing, No cyanosis, No edema, Capillary Refill Less than 3 Seconds Skin: No rashes, No breakdown Musculoskeletal: - - no tenderness with palpation or movement. Lymphatic: No Cervical, Supraclavicular, or Inguinal Adenopathy Neurological: Cranial nerves II-XII grossly intact, Neuro grossly intact, Motor Exam 5/5 strength throughout Psych/Mental Status: Normal Affect, Appropriate, Alert and oriented to time, place, person, mood and affect Microbiology Past 72 Hours 12/06/20 11:12 Urine, Random Urine Culture - Preliminary Staphylococcus aureus 12/01/20 13:05 Blood Culture (Wb) - Anticubital Left Blood Culture - Final No growth in 5 days. 12/01/20 12:42 Blood Culture (Wb) - Anticubital Right Blood Culture - Final No growth in 5 days. 12/01/20 14:31 Urine, Cystoscopy Urine Culture - Final Staphylococcus aureus Pantoea spp Pseudomonas aeroginosa Laboratory Results 12/08/20 07:40: WBC 12.9 H, RBC 3.45 L, Hgb 8.1 L, Hct 27.5 L, MCV 79.7 L, MCH 23.5 L, MCHC 29.5 L, RDW Std Deviation 50.7 H, RDW Coeff of Jeff 17.4 H, Plt Count 208, MPV 10.6, Immature Gran % (Auto) 4.100 H, Neut % (Auto) 66.0, Lymph % (Auto) 11.9 L, [place] % (Auto) 16.8 H, Eos % (Auto) 0.9, Baso % (Auto) 0.3, Absolute Neuts (auto) 8.5 H, Absolute Lymphs (auto) 1.54, Nucleated RBC % 0, Diff Path Review February12/08/20 07:40: Sodium 145, Potassium 3.7, Chloride 110 H, Carbon Dioxide 25.0, Anion Gap 10, BUN 67 H, Creatinine 5.21 H, Estim Creat Clear Calc 11.48, Est GFR (MDRD) Af Amer 14 L, Est GFR (MDRD) Non-Af 11 L, BUN/Creatinine Ratio 12.9, Glucose 103, Calcium 8.1 L Current Medications Acetaminophen (Acetaminophen 325 Mg Tablet) 650 mg PO Q6H PRN PRN PRN Reason: Pain Score 1-10/Temp > 100.7 F Last Admin: 12/03/20 22:38 Dose: 650 mg Documented by: Aspirin (Aspirin 81 Mg Tab.Chew) 81 mg PO DAILY@0800 [facility] Last Admin: 12/08/20 09:02 Dose: 81 mg Documented by: Calamine/Phenol (Menthol/Lanolin/Calamine/Znox 113 Gm Tube) 1 applic TOPICAL BID [facility]; Protocol Last Admin: 12/08/20 09:02 Dose: 1 applicatio Documented by: Calcium Carbonate (Calcium Carbonate 500 Mg Tablet) 500 mg PO Q6H PRN PRN PRN Reason: DYSPEPSIA Heparin Sodium (Porcine) (Heparin Injection (Vial) 5,000 Unit/Ml Vial) 5,000 unit SC Q12 [facility] Last Admin: 12/08/20 09:50 Dose: 5,000 unit Documented by: Levofloxacin (Levofloxacin 500 Mg Tablet) 250 mg PO Q48@0600 [facility] Last Admin: 12/08/20 05:58 Dose: 250 mg Documented by: Lorazepam (Lorazepam 0.5 Mg Tablet) 0.5 mg PO DAILY PRN PRN PRN Reason: ANXIETY Last Admin: 12/05/20 10:38 Dose: 0.5 mg Documented by: Metoprolol Tartrate (Metoprolol Tartrate 25 Mg Tablet) 25 mg PO BID [facility] Last Admin: 12/08/20 09:50 Dose: 25 mg Documented by: Multivitamins ([facility]ivitamins,Therapeutic Tablet) [facility] Last Admin: 12/08/20 09:02 Dose: 1 tablet Documented by: Ondansetron HCl (Ondansetron 4 Mg/2 Ml Vial) 4 mg IV Q8H PRN PRN PRN Reason: NAUSEA/VOMITING Oxycodone HCl (Oxycodone 5 Mg Tablet) 5 mg PO Q4H PRN PRN PRN Reason: Pain Score 6-10 Last Admin: 12/03/20 22:37 Dose: 5 mg Documented by: Simethicone (Simethicone 80 Mg Tablet) 80 mg PO TIDPC PRN PRN Reason: bettie abd. Last Admin: 12/07/20 19:19 Dose: 80 mg Documented by: Sodium Chloride (0.9% Saline Lock 10 Ml Syringe) 10 - 40 ml IV UD PRN PRN Reason: SALINE FLUSH Last Admin: 12/04/20 12:00 Dose: 10 ml Documented by: Trimethoprim/Sulfamethoxazole (Smz/Tmp Ds Tablet) 0.5 tablet PO BIDCM [facility] Last Admin: 12/08/20 09:02 Dose: 0.5 tablet Documented by: STROKE Vital Signs/Narrative: Vital Signs Temp Pulse Resp BP Pulse Ox 12/08/20 09:50 97 12/08/20 09:49 97.9 F 97 22 H 107/70 97 Medical Necessity - Tobacco Use Smoking Status: Former smoker Assessment/Plan All Active Problems (Last Reviewed 12/02/20 @ 11:[address] 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 losartan on hold # Leucocytosis: chronic. stable #Non-anion gap metabolic acidosis: resolved. #Hypokalemia: resolved #History of bladder cancer s/p cystectomy: urology on board #Anemia: Hemoglobin is 8.1 S/p transfusion of 1 unit of packed red blood cell hemoglobin dropped to 6.9. Iron studies showed anemia of chronic disease as iron is low and iron saturation is low with low TIBC and ferritin is high #UTI: Urine cultured staph aureus with Pseudomonas aeruginosa and Pantoea blood cultures were negative. on oral bactrim and levofloxacin DVT prophylaxis: Heparin Disposition: awaiting placement. Inpatient E&M: 44274 [facility] Hosp L2
--- NOTE | 2020-12-08 17:10 | PCM.PN.REN ---
Patient Problems: Active and Suspected Problems (Last Reviewed 12/02/20 @ 11:[address] Aramis Matthew MD) Gross hematuria (Acute) MERLE (acute kidney injury) (Acute) Debility (Acute) Dehydration (Acute) Urinary tract infection (Acute) Subjective: No new complaints. Right nephrostomy tube and ileal conduit draining the left kidney are both making urine. BUN and creatinine are slightly better. Appetite is fair. - Physical Exam Vitals/I&O's: Vital Signs Temp Pulse Resp BP Pulse Ox 98.4 F 75 18 143/76 H 98 12/08/20 15:28 12/08/20 15:28 12/08/20 15:28 12/08/20 15:28 12/08/20 15:28 Oxygen Flow Rate (L/min) [10] 2 Oxygen Flow Rate (L/min) [9] 2 Oxygen Flow Rate (L/min) [8] 2 Oxygen Flow Rate (L/min) [7] 2 Oxygen Flow Rate (L/min) [6] 2 Oxygen Flow Rate (L/min) [5] 2 Oxygen Flow Rate (L/min) [4] 2 Oxygen Flow Rate (L/min) [3] 2 Oxygen Flow Rate (L/min) 2 Oxygen Delivery Method [10] Nasal Cannula Oxygen Delivery Method [9] Nasal Cannula Oxygen Delivery Method [8] Nasal Cannula Oxygen Delivery Method [7] Nasal Cannula Oxygen Delivery Method [6] Nasal Cannula Oxygen Delivery Method [5] Nasal Cannula Oxygen Delivery Method [4] Nasal Cannula Oxygen Delivery Method [3] Nasal Cannula Oxygen Delivery Method [2] Room Air Oxygen Delivery Method [1 ( Room Air Initial Baseline)] Oxygen Delivery Method Room Air Weight: 99 kg Body Mass Index (BMI) 30.5 Intake and Output for Last 24 Hours 12/06/20 12/07/20 12/08/20 23:59 23:59 23:59 Intake Total 1816.0 / 1816.0 850 / 850 Output Total 1830 / 1830 2220 / 2220 1875 / 1875 Balance -14.0 / -14.0 -1370 / -1370 -1875 / -1875 General: Alert, Oriented x3, Cooperative HEENT: Atraumatic, PERRLA, EOMI, Normocephalic Neck: Supple, No JVD, Negative Carotid Bruits Lungs: Clear to auscultation, Normal air movement Cardiovascular: Regular rate, No murmurs Abdomen: Bowel Sounds Present, Soft, Non Tender Extremities: No edema, Capillary Refill Less than 3 Seconds Skin: No rashes, No breakdown Musculoskeletal: No Tenderness to Palpation of Joints or Extremities Neurological: Cranial nerves II-XII grossly intact Psych/Mental Status: Normal Affect, Appropriate Microbiology Past 72 Hours 12/06/20 11:12 Urine, Random Urine Culture - Preliminary Staphylococcus aureus 12/01/20 13:05 Blood Culture (Wb) - Anticubital Left Blood Culture - Final No growth in 5 days. 12/01/20 12:42 Blood Culture (Wb) - Anticubital Right Blood Culture - Final No growth in 5 days. Laboratory Results 12/08/20 07:40: WBC 12.9 H, RBC 3.45 L, Hgb 8.1 L, Hct 27.5 L, MCV 79.7 L, MCH 23.5 L, MCHC 29.5 L, RDW Std Deviation 50.7 H, RDW Coeff of Jeff 17.4 H, Plt Count 208, MPV 10.6, Immature Gran % (Auto) 4.100 H, Neut % (Auto) 66.0, Lymph % (Auto) 11.9 L, [place] % (Auto) 16.8 H, Eos % (Auto) 0.9, Baso % (Auto) 0.3, Absolute Neuts (auto) 8.5 H, Absolute Lymphs (auto) 1.54, Nucleated RBC % 0, Diff Path Review February12/08/20 07:40: Sodium 145, Potassium 3.7, Chloride 110 H, Carbon Dioxide 25.0, Anion Gap 10, BUN 67 H, Creatinine 5.21 H, Estim Creat Clear Calc 11.48, Est GFR (MDRD) Af Amer 14 L, Est GFR (MDRD) Non-Af 11 L, BUN/Creatinine Ratio 12.9, Glucose 103, Calcium 8.1 L Current Medications Acetaminophen (Acetaminophen 325 Mg Tablet) 650 mg PO Q6H PRN PRN PRN Reason: Pain Score 1-10/Temp > 100.7 F Last Admin: 12/03/20 22:38 Dose: 650 mg Documented by: Aspirin (Aspirin 81 Mg Tab.Chew) 81 mg PO DAILY@0800 [facility] Last Admin: 12/08/20 09:02 Dose: 81 mg Documented by: Calamine/Phenol (Menthol/Lanolin/Calamine/Znox 113 Gm Tube) 1 applic TOPICAL BID [facility]; Protocol Last Admin: 12/08/20 09:02 Dose: 1 applicatio Documented by: Calcium Carbonate (Calcium Carbonate 500 Mg Tablet) 500 mg PO Q6H PRN PRN PRN Reason: DYSPEPSIA Heparin Sodium (Porcine) (Heparin Injection (Vial) 5,000 Unit/Ml Vial) 5,000 unit SC Q12 [facility] Last Admin: 12/08/20 09:50 Dose: 5,000 unit Documented by: Levofloxacin (Levofloxacin 500 Mg Tablet) 250 mg PO Q48@0600 [facility] Last Admin: 12/08/20 05:58 Dose: 250 mg Documented by: Lorazepam (Lorazepam 0.5 Mg Tablet) 0.5 mg PO DAILY PRN PRN PRN Reason: ANXIETY Last Admin: 12/05/20 10:38 Dose: 0.5 mg Documented by: Metoprolol Tartrate (Metoprolol Tartrate 25 Mg Tablet) 25 mg PO BID [facility] Last Admin: 12/08/20 09:50 Dose: 25 mg Documented by: Multivitamins (Multivitamins,Therapeutic Tablet) [facility] Last Admin: 12/08/20 09:02 Dose: 1 tablet Documented by: Ondansetron HCl (Ondansetron 4 Mg/2 Ml Vial) 4 mg IV Q8H PRN PRN PRN Reason: NAUSEA/VOMITING Oxycodone HCl (Oxycodone 5 Mg Tablet) 5 mg PO Q4H PRN PRN PRN Reason: Pain Score 6-10 Last Admin: 12/03/20 22:37 Dose: 5 mg Documented by: Simethicone (Simethicone 80 Mg Tablet) 80 mg PO TIDPC PRN PRN Reason: bettie abd. Last Admin: 12/07/20 19:19 Dose: 80 mg Documented by: Sodium Chloride (0.9% Saline Lock 10 Ml Syringe) 10 - 40 ml IV UD PRN PRN Reason: SALINE FLUSH Last Admin: 12/04/20 12:00 Dose: 10 ml Documented by: Trimethoprim/Sulfamethoxazole (Smz/Tmp Ds Tablet) 0.5 tablet [facility] Last Admin: 12/08/20 09:02 Dose: 0.5 tablet Documented by: Medical Necessity - Tobacco Use Smoking Status: Former smoker Assessment/Plan All Active Problems (Last Reviewed 12/02/20 @ 11:[address] Aramis Matthew MD) Gross hematuria (Acute) MERLE (acute kidney injury) (Acute) Debility (Acute) Dehydration (Acute) Urinary tract infection (Acute) 1- MERLE on CKD stage 3. baseline Cr 1.8-2.4 mg/dl MERLE is likely post renal from B/L hydronephrosis.ATN is also possible S/P cystoscopy with pyelogram 12/05. s/p R PNT placement 12/06 Cr is slightly better UOP is adequate No need for urgent [employer]. Continue holding losartan 2- Metabolic acidosis from MERLE resolved 3- B/L hydronephrosis. Patient is s/p cystectomy with ileal conduit creation and B/L ureter stents placement in September 2020 s/p cystoscopy with pyelogram 12/05 s/p R PNT placement 12/06 Urology is following. 4- UTI: Currently on levofloxacin and Bactrim. If possible switch Bactrim to other agents.
[2020-12-08] MEDS: Calcium Carbonate 500 MG Tablet PO (18:26)
[2020-12-09] VITALS (8 sets, daily range): BP systolic 138–147; BP diastolic 77–84; PULSE 75–85; RESP 16–18; TEMP 36.7–36.9; O2SAT 94–97
[2020-12-09 05:55] LABS: Absolute Lymphocyte Count 1.74 X10^3/uL (0.83-4.51); Absolute Neutrophil Count 8.1 X10^3/uL (2.0-7.7); Basophil# 0.05 X10^3/uL; Basophil% 0.4 % (0-1); Eosinophil# 0.08 X10^3/uL; Eosinophils% 0.7 % (0-5); Hematocrit 24.2 % (40-54); Hemoglobin 7.2 g/dL (13.0-16.5); Lymphocyte # 1.74 X10^3/ul (4.0); Lymphocyte % 14.2 % (19-41); Mean Corp Hgb Conc 29.8 g/dL (32-36); Mean Corpuscular Hgb 23.9 pg (27.0-32.0); Mean Corpuscular Volume 80.4 fL (80-94); Mean Platelet Vol. 10.6 fl (6.2-12.0); Monocyte# 1.92 X10^3/uL; Monocyte% 15.6 % (0-10); NRBC Flagged by Analyzer 0 % (0-5); Neutrophil # 8.05 X10^3/uL (2.7-7.7); Neutrophil % 65.5 % (47-70); POSITIVE DIFFERENTIAL YES; Platelet Count 191 K/mm3 (150-450); RBC Distribution Width CV 17.5 % (11.6-14.6); RBC Distribution Width SD 51.4 fl (35.1-43.9); Red Blood Count 3.01 M/mm3 (4.6-6.2); White Blood Count 12.3 K/mm3 (4.4-11.0)
[2020-12-09 06:22] LABS: Differential Indicated SCAN CRITERIA MET
[2020-12-09 06:34] LABS: Anion Gap 10 (5-15); BUN 65 mg/dL (7-18); BUN/Creat Ratio 13.3 RATIO (10-20); Calcium,Total 8.1 mg/dL (8.5-10.1); Chloride 112 mmol/L (98-107); EST Glomerular Filtration Rate 12 mL/min (>60); Est Glom Filt Rate - Afr Amer 15 mL/min (>60); Estimated Creatinine Clearance 12.21 ml/min; Glucose 108 mg/dL (74-106); Potassium 3.4 mmol/L (3.5-5.1); Sodium Level 145 mmol/L (136-145)
[2020-12-09 07:01] LABS: Anisocytosis 2+; Differential Comment SCANNED; Hypochromasia 3+
[2020-12-09] MEDS: Aspirin 81 MG TAB.CHEW PO (08:25)
[2020-12-09] MEDS: Multivitamins,Therapeutic Tablet 1 TABLET PO (08:25)
[2020-12-09] MEDS: Smz/Tmp Ds Tablet 0.5 TABLET PO ×2 (08:25→17:12)
[2020-12-09] MEDS: Heparin Injection (Vial) 5,000 UNIT/ML VIAL 5000 UNIT SC ×2 (10:18→20:56)
[2020-12-09] MEDS: Metoprolol Tartrate 25 MG Tablet PO ×2 (10:18→20:56)
[2020-12-09] MEDS: Menthol/Lanolin/Calamine/Znox 113 GM Tube 1 APPLIC TOPICAL ×2 (10:18→20:55)
--- NOTE | 2020-12-09 11:13 | PN_ITS ---
Patient Problems: Active and Suspected Problems (Last Reviewed 12/02/20 @ 11:[address] Aramis Matthew MD) Gross hematuria (Acute) MERLE (acute kidney injury) (Acute) Debility (Acute) Dehydration (Acute) Urinary tract infection (Acute) Subjective: Patient seen and examined. He has no complaints. Review of systems otherwise negative. Cr is down to 4.9 today potassium is 3.4. Hemoglobin is 7.2. Vitals/I&O's: Vital Signs Temp Pulse Resp BP Pulse Ox 98.1 F 80 18 143/77 H 94 12/09/20 08:21 12/09/20 10:18 12/09/20 08:21 12/09/20 08:21 12/09/20 08:21 Oxygen Flow Rate (L/min) [10] 2 Oxygen Flow Rate (L/min) [9] 2 Oxygen Flow Rate (L/min) [8] 2 Oxygen Flow Rate (L/min) [7] 2 Oxygen Flow Rate (L/min) [6] 2 Oxygen Flow Rate (L/min) [5] 2 Oxygen Flow Rate (L/min) [4] 2 Oxygen Flow Rate (L/min) [3] 2 Oxygen Flow Rate (L/min) 2 Oxygen Delivery Method [10] Nasal Cannula Oxygen Delivery Method [9] Nasal Cannula Oxygen Delivery Method [8] Nasal Cannula Oxygen Delivery Method [7] Nasal Cannula Oxygen Delivery Method [6] Nasal Cannula Oxygen Delivery Method [5] Nasal Cannula Oxygen Delivery Method [4] Nasal Cannula Oxygen Delivery Method [3] Nasal Cannula Oxygen Delivery Method [2] Room Air Oxygen Delivery Method [1 ( Room Air Initial Baseline)] Oxygen Delivery Method Room Air Weight: 218 lb 4.122 oz Body Mass Index (BMI) 30.5 Intake and Output for Last 24 Hours 12/07/20 12/08/20 12/09/20 23:59 23:59 23:59 Intake Total 850 / 850 Output Total 2220 / 2220 2275 / 2275 525 / 525 Balance -1370 / -1370 -2275 / -2275 -525 / -525 General: Alert, Oriented x3, Cooperative, No apparent distress HEENT: Atraumatic, PERRLA, EOMI, Normocephalic Oral: Moist Mucosa Neck: Supple, No JVD, Negative Carotid Bruits Lungs: Clear to auscultation, Normal air movement Cardiovascular: Regular rate, Regular Rhythm, Normal S1, Normal S2, No murmurs Abdomen: Bowel Sounds Present, Soft, Non Tender; ileal conduit bag contains clear urine Extremities: No clubbing, No cyanosis, No edema, Capillary Refill Less than 3 Seconds Skin: No rashes, No breakdown Musculoskeletal: - - no tenderness with palpation or movement. Lymphatic: No Cervical, Supraclavicular, or Inguinal Adenopathy Neurological: Cranial nerves II-XII grossly intact, Neuro grossly intact, Motor Exam 5/5 strength throughout Psych/Mental Status: Normal Affect, Appropriate, Alert and oriented to time, place, person, mood and affect Microbiology Past 72 Hours 12/06/20 11:12 Urine, Random Urine Culture - Final Staphylococcus aureus 12/01/20 13:05 Blood Culture (Wb) - Anticubital Left Blood Culture - Final No growth in 5 days. 12/01/20 12:42 Blood Culture (Wb) - Anticubital Right Blood Culture - Final No growth in 5 days. Laboratory Results 12/09/20 04:51: WBC 12.3 H, RBC 3.01 L, Hgb 7.2 L, Hct 24.2 L, MCV 80.4, MCH 23.9 L, MCHC 29.8 L, RDW Std Deviation 51.4 H, RDW Coeff of Jeff 17.5 H, Plt Count 191, MPV 10.6, Immature Gran % (Auto) 3.600 H, Neut % (Auto) 65.5, Lymph % (Auto) 14.2 L, [place] % (Auto) 15.6 H, Eos % (Auto) 0.7, Baso % (Auto) 0.4, Absolute Neuts (auto) 8.1 H, Absolute Lymphs (auto) 1.74, Nucleated RBC % 0, Differential Comment SCANNED, Diff Path Review May foll, Hypochromasia 3+, Anisocytosis 2+ 12/09/20 04:51: Sodium 145, Potassium 3.4 L, Chloride 112 H, Carbon Dioxide 23.0, Anion Gap 10, BUN 65 H, Creatinine 4.90 H, Estim Creat Clear Calc 12.21, Est GFR (MDRD) Af Amer 15 L, Est GFR (MDRD) Non-Af 12 L, BUN/Creatinine Ratio 13.3, Glucose 108 H, Calcium 8.1 L Diagnostic Data Chest X-Ray 12/01/20 12:30 IMPRESSION: No active pulmonary disease. Electronically Signed: Santi Alvares MD at 12:47 EST Tel , Service support , Renal Ultrasound 12/01/20 15:01 IMPRESSION: Stable bilateral hydronephrosis. Electronically Signed: Cecil Newton MD ([place]) at 16:33 EST , Service support , Nephrostomy Tube Change 12/06/20 08:00 IMPRESSION: 1. The percutaneous right nephrostomy catheter is in good position with the pigtail portion located in the right renal pelvis. Electronically Signed: Jesus Carver MD at 12:16 EST , Service support , Current Medications Acetaminophen (Acetaminophen 325 Mg Tablet) 650 mg PO Q6H PRN PRN PRN Reason: Pain Score 1-10/Temp > 100.7 F Last Admin: 12/03/20 22:38 Dose: 650 mg Documented by: Aspirin (Aspirin 81 Mg Tab.Chew) 81 mg PO DAILY@0800 [facility] Last Admin: 12/09/20 08:25 Dose: 81 mg Documented by: Calamine/Phenol (Menthol/Lanolin/Calamine/Znox 113 Gm Tube) 1 applic TOPICAL BID [facility]; Protocol Last Admin: 12/09/20 10:18 Dose: 1 applicatio Documented by: Calcium Carbonate (Calcium Carbonate 500 Mg Tablet) 500 mg PO Q6H PRN PRN PRN Reason: DYSPEPSIA Last Admin: 12/08/20 18:26 Dose: 500 mg Documented by: Heparin Sodium (Porcine) (Heparin Injection (Vial) 5,000 Unit/Ml Vial) 5,000 unit SC Q12 [facility] Last Admin: 12/09/20 10:18 Dose: 5,000 unit Documented by: Levofloxacin (Levofloxacin 500 Mg Tablet) 250 mg PO Q48@0600 [facility] Last Admin: 12/08/20 05:58 Dose: 250 mg Documented by: Lorazepam (Lorazepam 0.5 Mg Tablet) 0.5 mg PO DAILY PRN PRN PRN Reason: ANXIETY Last Admin: 12/05/20 10:38 Dose: 0.5 mg Documented by: Metoprolol Tartrate (Metoprolol Tartrate 25 Mg Tablet) 25 mg PO BID [facility] Last Admin: 12/09/20 10:18 Dose: 25 mg Documented by: Multivitamins (Multivitamins,Therapeutic Tablet) [facility] Last Admin: 12/09/20 08:25 Dose: 1 tablet Documented by: Ondansetron HCl (Ondansetron 4 Mg/2 Ml Vial) 4 mg IV Q8H PRN PRN PRN Reason: NAUSEA/VOMITING Oxycodone HCl (Oxycodone 5 Mg Tablet) 5 mg PO Q4H PRN PRN PRN Reason: Pain Score 6-10 Last Admin: 12/03/20 22:37 Dose: 5 mg Documented by: Simethicone (Simethicone 80 Mg Tablet) 80 mg PO TIDPC PRN PRN Reason: bettie abd. Last Admin: 12/07/20 19:19 Dose: 80 mg Documented by: Sodium Chloride (0.9% Saline Lock 10 Ml Syringe) 10 - 40 ml IV UD PRN PRN Reason: SALINE FLUSH Last Admin: 12/04/20 12:00 Dose: 10 ml Documented by: Trimethoprim/Sulfamethoxazole (Smz/Tmp Ds Tablet) [facility] Last Admin: 12/09/20 08:25 Dose: 0.5 tablet Documented by: STROKE Vital Signs/Narrative: Vital Signs Temp Pulse Resp BP Pulse Ox 12/09/20 10:18 80 12/09/20 08:21 98.1 F 85 18 143/77 H 94 12/09/20 08:20 80 Medical Necessity - Tobacco Use Smoking Status: Former smoker Assessment/Plan All Active Problems (Last Reviewed 12/02/20 @ 11:[address] 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 * losartan on hold * * # Leucocytosis: chronic. stable. wbc today is 12.3 #Non-anion gap metabolic acidosis: resolved. #Hypokalemia: resolved #History of bladder cancer s/p cystectomy: urology on board #Anemia: * Hemoglobin is 7.2 today * S/p transfusion of 1 unit of packed red blood cell hemoglobin dropped to 6.9. * Iron studies showed anemia of chronic disease as iron is low and iron saturation is low with low TIBC and ferritin is high * transfuse if Hb ,7 #UTI: * Urine cultured staph aureus with Pseudomonas aeruginosa and Pantoea blood cultures were negative. * on oral bactrim and levofloxacin DVT prophylaxis: Heparin Disposition: awaiting placement. Inpatient E&M: 17186 [facility] Hosp L2
[2020-12-10 03:33] VITALS: BP 135/71; PULSE 73; RESP 17; TEMP 36.9; O2SAT 97
[2020-12-10] MEDS: levoFLOXacin 500 MG Tablet 250 MG PO (05:57)
[2020-12-10 06:21] LABS: Absolute Neutrophil Count 7.5 X10^3/uL (2.0-7.7); Basophil# 0.05 X10^3/uL; Basophil% 0.4 % (0-1); Eosinophil# 0.11 X10^3/uL; Eosinophils% 0.9 % (0-5); Hematocrit 26.5 % (40-54); Hemoglobin 7.8 g/dL (13.0-16.5); Lymphocyte % 15.5 % (19-41); Mean Corp Hgb Conc 29.4 g/dL (32-36); Mean Corpuscular Hgb 24.1 pg (27.0-32.0); Monocyte% 14.6 % (0-10); NRBC Flagged by Analyzer 0 % (0-5); Neutrophil # 7.49 X10^3/uL (2.7-7.7); Neutrophil % 64.3 % (47-70); POSITIVE DIFFERENTIAL YES; Platelet Count 172 K/mm3 (150-450); RBC Distribution Width CV 17.8 % (11.6-14.6); RBC Distribution Width SD 52.2 fl (35.1-43.9); Red Blood Count 3.23 M/mm3 (4.6-6.2); White Blood Count 11.7 K/mm3 (4.4-11.0)
[2020-12-10 06:27] LABS: Differential Indicated SCAN CRITERIA MET
[2020-12-10 06:51] LABS: Anion Gap 9 (5-15); BUN 58 mg/dL (7-18); Calcium,Total 8.3 mg/dL (8.5-10.1); Chloride 112 mmol/L (98-107); Creatinine, Serum 4.83 mg/dL (0.70-1.30); EST Glomerular Filtration Rate 12 mL/min (>60); Est Glom Filt Rate - Afr Amer 15 mL/min (>60); Estimated Creatinine Clearance 12.38 ml/min; Glucose 96 mg/dL (74-106); Potassium 3.5 mmol/L (3.5-5.1); Sodium Level 145 mmol/L (136-145)
--- NOTE | 2020-12-10 07:35 | PCM.PN.HOSP ---
Patient Problems: Active and Suspected Problems (Last Reviewed 12/02/20 @ 11:[address] Aramis Matthew MD) Gross hematuria (Acute) MERLE (acute kidney injury) (Acute) Debility (Acute) Dehydration (Acute) Urinary tract infection (Acute) Vitals/I&O's: Vital Signs Temp Pulse Resp BP Pulse Ox 98.5 F 73 17 135/71 H 97 12/10/20 03:33 12/10/20 03:33 12/10/20 03:33 12/10/20 03:33 12/10/20 03:33 Oxygen Flow Rate (L/min) [10] 2 Oxygen Flow Rate (L/min) [9] 2 Oxygen Flow Rate (L/min) [8] 2 Oxygen Flow Rate (L/min) [7] 2 Oxygen Flow Rate (L/min) [6] 2 Oxygen Flow Rate (L/min) [5] 2 Oxygen Flow Rate (L/min) [4] 2 Oxygen Flow Rate (L/min) [3] 2 Oxygen Flow Rate (L/min) 2 Oxygen Delivery Method [10] Nasal Cannula Oxygen Delivery Method [9] Nasal Cannula Oxygen Delivery Method [8] Nasal Cannula Oxygen Delivery Method [7] Nasal Cannula Oxygen Delivery Method [6] Nasal Cannula Oxygen Delivery Method [5] Nasal Cannula Oxygen Delivery Method [4] Nasal Cannula Oxygen Delivery Method [3] Nasal Cannula Oxygen Delivery Method [2] Room Air Oxygen Delivery Method [1 ( Room Air Initial Baseline)] Oxygen Delivery Method Room Air Weight: 99 kg Body Mass Index (BMI) 30.5 Intake and Output for Last 24 Hours 12/08/20 12/09/20 12/10/20 23:59 23:59 23:59 Intake Total 1160 / 1160 550 / 550 Output Total 2275 / 2275 1650 / 1650 600 / 600 Balance -2275 / -2275 -490 / -490 -50 / -50 Microbiology Past 72 Hours 12/06/20 11:12 Urine, Random Urine Culture - Final Staphylococcus aureus Laboratory Results 12/10/20 06:05: WBC 11.7 H, RBC 3.23 L, Hgb 7.8 L, Hct 26.5 L, MCV 82.0, MCH 24.1 L, MCHC 29.4 L, RDW Std Deviation 52.2 H, RDW Coeff of Jeff 17.8 H, Plt Count 172, MPV 10.0, Immature Gran % (Auto) 4.300 H, Neut % (Auto) 64.3, Lymph % (Auto) 15.5 L, [place] % (Auto) 14.6 H, Eos % (Auto) 0.9, Baso % (Auto) 0.4, Absolute Neuts (auto) 7.5, Absolute Lymphs (auto) 1.80, Nucleated RBC % 0, Diff Path Review February12/10/20 06:05: Sodium 145, Potassium 3.5, Chloride 112 H, Carbon Dioxide 24.0, Anion Gap 9, BUN 58 H, Creatinine 4.83 H, Estim Creat Clear Calc 12.38, Est GFR (MDRD) Af Amer 15 L, Est GFR (MDRD) Non-Af 12 L, BUN/Creatinine Ratio 12.0, Glucose 96, Calcium 8.3 L Current Medications Acetaminophen (Acetaminophen 325 Mg Tablet) 650 mg PO Q6H PRN PRN PRN Reason: Pain Score 1-10/Temp > 100.7 F Last Admin: 12/03/20 22:38 Dose: 650 mg Documented by: Aspirin (Aspirin 81 Mg Tab.Chew) 81 mg PO DAILY@0800 [facility] Last Admin: 12/09/20 08:25 Dose: 81 mg Documented by: Calamine/Phenol (Menthol/Lanolin/Calamine/Znox 113 Gm Tube) 1 applic TOPICAL BID [facility]; Protocol Last Admin: 12/09/20 20:55 Dose: 1 applicatio Documented by: Calcium Carbonate (Calcium Carbonate 500 Mg Tablet) 500 mg PO Q6H PRN PRN PRN Reason: DYSPEPSIA Last Admin: 12/08/20 18:26 Dose: 500 mg Documented by: Heparin Sodium (Porcine) (Heparin Injection (Vial) 5,000 Unit/Ml Vial) 5,000 unit SC Q12 [facility] Last Admin: 12/09/20 20:56 Dose: 5,000 unit Documented by: Levofloxacin (Levofloxacin 500 Mg Tablet) 250 mg PO Q48@0600 [facility] Last Admin: 12/10/20 05:57 Dose: 250 mg Documented by: Lorazepam (Lorazepam 0.5 Mg Tablet) 0.5 mg PO DAILY PRN PRN PRN Reason: ANXIETY Last Admin: 12/05/20 10:38 Dose: 0.5 mg Documented by: Metoprolol Tartrate (Metoprolol Tartrate 25 Mg Tablet) 25 mg PO BID [facility] Last Admin: 12/09/20 20:56 Dose: 25 mg Documented by: Multivitamins ([facility]it[facility],Therapeutic Tablet) [facility] Last Admin: 12/09/20 08:25 Dose: 1 tablet Documented by: Ondansetron HCl (Ondansetron 4 Mg/2 Ml Vial) 4 mg IV Q8H PRN PRN PRN Reason: NAUSEA/VOMITING Oxycodone HCl (Oxycodone 5 Mg Tablet) 5 mg PO Q4H PRN PRN PRN Reason: Pain Score 6-10 Last Admin: 12/03/20 22:37 Dose: 5 mg Documented by: Simethicone (Simethicone 80 Mg Tablet) 80 mg PO TIDPC PRN PRN Reason: bettie abd. Last Admin: 12/09/20 20:58 Dose: 80 mg Documented by: Sodium Chloride (0.9% Saline Lock 10 Ml Syringe) 10 - 40 ml IV UD PRN PRN Reason: SALINE FLUSH Last Admin: 12/04/20 12:00 Dose: 10 ml Documented by: Trimethoprim/Sulfamethoxazole (Smz/Tmp Ds Tablet) [facility] Last Admin: 12/09/20 17:12 Dose: 0.5 tablet Documented by: Medical Necessity - Tobacco Use Smoking Status: Former smoker Assessment/Plan All Active Problems (Last Reviewed 12/02/20 @ 11:[address] Aramis Matthew MD) Gross hematuria (Acute) MERLE (acute kidney injury) (Acute) Debility (Acute) Dehydration (Acute) Urinary tract infection (Acute) Inpatient E&M: 25729 Subs Hosp L2
--- NOTE | 2020-12-10 07:51 | NURSING ---
Urostomy appliance is intact. appliance had been changed on 12/07/20. patient states he typically changed the appliances twice a week. plan to change appliance tomorrow if patient is still in hospital. pt states he will be going to a correction at discharge.
[2020-12-10] MEDS: Aspirin 81 MG TAB.CHEW PO (07:55)
[2020-12-10] MEDS: Multivitamins,Therapeutic Tablet 1 TABLET PO (07:56)
[2020-12-10] MEDS: Smz/Tmp Ds Tablet 0.5 TABLET PO (07:56)
[2020-12-10 09:12] VITALS: BP 122/80; PULSE 92; RESP 16; TEMP 36.6; O2SAT 98
--- NOTE | 2020-12-10 09:25 | CASEMGMT ---
Addendum entered by Sulma Mcclellan 12/10/20 11:45: SW placed a call to [facility] and left message for Consuelo updating her to disregard referral. Addendum entered by Sulma Mcclellan 12/10/20 10:38: Pt is medically ready for discharge today. SW placed a call to [facility] with TCU and updated her. Plan: TCU today Original Note: Social Work Note ANIL placed a call to [facility] with TCU to confirm still no beds. Tish states TCU is able to accept pt today as a bed became available. SW in to speak with pt. ANIL introduced self and role at [facility]. SW asked pt if he feels safe to return home or if he needs SNF. Pt states he thinks he still needs SNF. ANIL informed pt that TCU is stating they now have a bed available. Pt agreeable to [facility] TCU. Plan: [facility] TCU Sulma Mcclellan ASSEMBLY MACHINE OFFBEARER, CHILDCARE DIRECTOR
[2020-12-10] MEDS: Menthol/Lanolin/Calamine/Znox 113 GM Tube 1 APPLIC TOPICAL (09:35)
[2020-12-10 09:37] VITALS: PULSE 92
[2020-12-10] MEDS: Heparin Injection (Vial) 5,000 UNIT/ML VIAL 5000 UNIT SC (09:37)
[2020-12-10] MEDS: Metoprolol Tartrate 25 MG Tablet PO (09:37)
--- NOTE | 2020-12-10 10:38 | PCM.TXEXTCAR ---
- Diet 12/06/20 12:22 Diet: Regular - General Dietary Modifications:: Sodium Restricted Type of Dietary Supplement:: Hao Is pt able to select menu?: Yes Diet Comments: Hao Doshi pkt BID L&D. - Routine Orders/Code Status Keep PO Greater than or Equal to (%): 94 - Encourage use of incentive spirometer Routine Lab Work: CBC - within 3 days, BMP - within 3 days Code Status: DNRCC-A - Wound(s) CLEFT Wound Type: open slit RIGHT BUTTOCK Wound Type: Pressure Injury right flank Wound Type: nephrostomy - Therapies Weight Bearing: Weight bearing as tolerated Physical Therapy: Eval and Treat Occupational Therapy: Eval and Treat - Allergies/Procedures Done in Hospital Allergies/Adverse Reactions: Allergies atenolol Adverse Reaction (Verified 12/01/20 12:20) hypotension HYPOTENSION tamsulosin [From Flomax] Adverse Reaction (Verified 12/01/20 12:20) PT UNSURE OF REACTION passed out Procedures: - - 12/05/20 - Flexible cystoscopy via the ileal conduit, removal of old stent, loopogram, placement of stent left side 12/06/20- right percutaneous nephrostomy tube placement by IR - Type of Care/Length of Stay Estimated LOS: Convalescent Care Less Than 30 days Type of Care Needed: Skilled Rehab Potential: Fair Prognosis: Fair - Additional Orders/Day of Discharge Day of Discharge: 12/10/20 - Dietary and Speech Recommendations Dietitian Recommendations/Changes: Will change diet to sodium-restricted and monitor need to restrict protein as indicated. Continue Hao BID for wound healing for now; d/c as indicated due to CKD. - Follow Up Care Primary Care Physician: Kim Torres MD [Primary Care Provider] - Please follow up with your Primary Care Physician in: within 2 weeks Please Follow Up With: Aramis Matthew MD When: within 1-2 weeks Please Follow Up With: Audra Engle MD When: in 1 week
--- NOTE | 2020-12-10 10:44 | DS.PCM_ITS ---
Discharge Date and Diagnosis - Problem List Patient Problems: Active and Suspected Problems (Last Reviewed 12/02/20 @ 11:[address] Aramis Matthew MD) Gross hematuria (Acute) Leukocytosis (Acute) MERLE (acute kidney injury) (Acute) Debility (Acute) Dehydration (Acute) Urinary tract infection (Acute) Date of Admission: 12/01/20 Date of Discharge: 12/10/20 - Primary Discharge Diagnosis Acute Problems: Active Problems (Last Reviewed 12/02/20 @ 11:[address] Aramis Matthew MD) Acute UTI, complicated, related to ileal conduit. MERLE on CKD stage III Leukocytosis Non-anion gap metabolic acidosis Hypokalemia Anemia - Secondary Discharge Diagnosis Chronic Problems: Chronic Problems (Last Reviewed 12/02/20 @ 11:[address] Aramis Matthew MD) Bladder tumor (Chronic) Bladder cancer (Chronic) Leukocytosis (Chronic) Hospital Course and Treatment Imaging Results: Clinical Impression(s) from Imaging Studies Chest X-Ray 12/01/20 12:30 IMPRESSION: No active pulmonary disease. Electronically Signed: Santi Alvares MD at 12:47 EST Tel , Service support , Renal Ultrasound 12/01/20 15:01 IMPRESSION: Stable bilateral hydronephrosis. Electronically Signed: Cecil Newton MD ([place]oks) at 16:33 EST , Service support , Nephrostomy Tube Change 12/06/20 08:00 IMPRESSION: 1. The percutaneous right nephrostomy catheter is in good position with the pigtail portion located in the right renal pelvis. Electronically Signed: Jesus Carver MD at 12:16 EST , Service support , Consultations 12/07/20 04:40 Consult: Onc/Wound/pot operator Routine Comment: Reason for Consult:: ileal conduit Nephrology Operations: None, - - Open radical cystoprostatectomy and formation of an ileal conduit Procedures: None Summary of Care Provided: The patient is a 80 year old M with PMHx of C status post radical cystectomy ileal conduit who presented with generalized weakness and diarrhea. Seen by urology the day before his presentation. He presented to the emergency department and his creatinine was 6.8, improved from 2.1. His Renetta was 2.5 indicating intrinsic renal disease, his home losartan was put on hold ultrasound of the kidneys showed bilateral hydronephrosis. His urinalysis was suggestive for UTI. Urine cultures grew Staphylococcus and Pseudomonas. Managed on Bactrim and Levaquin.His urine output improved but his creatinine was still fairly high. Patient was sent to surgery for loopogram and stent placement bilaterally. He had flexible cystoscopy via the ileal conduit, removal of old stent, loopogram, placement of stent left side. There was difficulty trying to get wires to the right side of the kidney. Nephrostomy tubes were recommended. Patient had percutaneous right nephrostomy tube placed. Infectious disease was consulted and recommended continuing on 10 more days of Levaquin. Creatinine continued to improve. He had hypokalemia in this hospital stay that resolved with treatment. Patient will need to follow-up with nephrology and urology in the outpatient. Patient Problems: Active and Suspected Problems (Last Reviewed 12/02/20 @ 11:[address] Aramis Matthew MD) Gross hematuria (Acute) Leukocytosis (Acute) MERLE (acute kidney injury) (Acute) Debility (Acute) Dehydration (Acute) Urinary tract infection (Acute) Subjective: On the day of discharge, patient was seen and examined. Denies any fever or chills. Objective: Physical exam: General: Alert, Oriented x3, Cooperative, No apparent distress HEENT: Atraumatic, PERRLA, EOMI, Normocephalic Oral: Moist Mucosa Neck: Supple, No JVD, Negative Carotid Bruits Lungs: Clear to auscultation, Normal air movement Cardiovascular: Regular rate, Regular Rhythm, Normal S1, Normal S2, No murmurs Abdomen: Bowel Sounds Present, Soft, Non Tender; ileal conduit bag contains clear urine Extremities: No clubbing, No cyanosis, No edema, Capillary Refill Less than 3 Seconds Skin: No rashes, No breakdown Musculoskeletal: - - no tenderness with palpation or movement. Lymphatic: No Cervical, Supraclavicular, or Inguinal Adenopathy Neurological: Cranial nerves II-XII grossly intact, Neuro grossly intact, Motor Exam 5/5 strength throughout Psych/Mental Status: Normal Affect, Appropriate, Alert and oriented to time, place, person, mood and affect - Physical Exam Vitals/I&O's: Vital Signs Temp Pulse Resp BP Pulse Ox 97.9 F 92 16 122/80 H 98 12/10/20 09:12 12/10/20 09:37 12/10/20 09:12 12/10/20 09:12 12/10/20 09:12 Oxygen Flow Rate (L/min) [10] 2 Oxygen Flow Rate (L/min) [9] 2 Oxygen Flow Rate (L/min) [8] 2 Oxygen Flow Rate (L/min) [7] 2 Oxygen Flow Rate (L/min) [6] 2 Oxygen Flow Rate (L/min) [5] 2 Oxygen Flow Rate (L/min) [4] 2 Oxygen Flow Rate (L/min) [3] 2 Oxygen Flow Rate (L/min) 2 Oxygen Delivery Method [10] Nasal Cannula Oxygen Delivery Method [9] Nasal Cannula Oxygen Delivery Method [8] Nasal Cannula Oxygen Delivery Method [7] Nasal Cannula Oxygen Delivery Method [6] Nasal Cannula Oxygen Delivery Method [5] Nasal Cannula Oxygen Delivery Method [4] Nasal Cannula Oxygen Delivery Method [3] Nasal Cannula Oxygen Delivery Method [2] Room Air Oxygen Delivery Method [1 ( Room Air Initial Baseline)] Oxygen Delivery Method Room Air Weight: 99 kg Body Mass Index (BMI) 30.5 Intake and Output for Last 24 Hours 12/08/20 12/09/20 12/10/20 23:59 23:59 23:59 Intake Total 1160 / 1160 550 / 550 Output Total 2275 / 2275 1650 / 1650 600 / 600 Balance -2275 / -2275 -490 / -490 -50 / -50 Microbiology Past 72 Hours 12/06/20 11:12 Urine, Random Urine Culture - Final Staphylococcus aureus Laboratory Results 12/10/20 06:05: WBC 11.7 H, RBC 3.23 L, Hgb 7.8 L, Hct 26.5 L, MCV 82.0, MCH 24.1 L, MCHC 29.4 L, RDW Std Deviation 52.2 H, RDW Coeff of Jeff 17.8 H, Plt Count 172, MPV 10.0, Immature Gran % (Auto) 4.300 H, Neut % (Auto) 64.3, Lymph % (Auto) 15.5 L, [place] % (Auto) 14.6 H, Eos % (Auto) 0.9, Baso % (Auto) 0.4, Absolute Neuts (auto) 7.5, Absolute Lymphs (auto) 1.80, Nucleated RBC % 0, Diff Path Review February12/10/20 06:05: Sodium 145, Potassium 3.5, Chloride 112 H, Carbon Dioxide 24.0, Anion Gap 9, BUN 58 H, Creatinine 4.83 H, Estim Creat Clear Calc 12.38, Est GFR (MDRD) Af Amer 15 L, Est GFR (MDRD) Non-Af 12 L, BUN/Creatinine Ratio 12.0, Glucose 96, Calcium 8.3 L Current Medications Acetaminophen (Acetaminophen 325 Mg Tablet) 650 mg PO Q6H PRN PRN PRN Reason: Pain Score 1-10/Temp > 100.7 F Last Admin: 12/03/20 22:38 Dose: 650 mg Documented by: Aspirin (Aspirin 81 Mg Tab.Chew) 81 mg PO DAILY@0800 [facility] Last Admin: 12/10/20 07:55 Dose: 81 mg Documented by: Calamine/Phenol (Menthol/Lanolin/Calamine/Znox 113 Gm Tube) 1 applic TOPICAL BID [facility]; Protocol Last Admin: 12/10/20 09:35 Dose: 1 applicatio Documented by: Calcium Carbonate (Calcium Carbonate 500 Mg Tablet) 500 mg PO Q6H PRN PRN PRN Reason: DYSPEPSIA Last Admin: 12/08/20 18:26 Dose: 500 mg Documented by: Heparin Sodium (Porcine) (Heparin Injection (Vial) 5,000 Unit/Ml Vial) 5,000 unit SC Q12 [facility] Last Admin: 12/10/20 09:37 Dose: 5,000 unit Documented by: Levofloxacin (Levofloxacin 500 Mg Tablet) 250 mg PO Q48@0600 [facility] Last Admin: 12/10/20 05:57 Dose: 250 mg Documented by: Lorazepam (Lorazepam 0.5 Mg Tablet) 0.5 mg PO DAILY PRN PRN PRN Reason: ANXIETY Last Admin: 12/05/20 10:38 Dose: 0.5 mg Documented by: Metoprolol Tartrate (Metoprolol Tartrate 25 Mg Tablet) 25 mg PO BID [facility] Last Admin: 12/10/20 09:37 Dose: 25 mg Documented by: Multivitamins (Multivitamins,Therapeutic Tablet) [facility] Last Admin: 12/10/20 07:56 Dose: 1 tablet Documented by: Ondansetron HCl (Ondansetron 4 Mg/2 Ml Vial) 4 mg IV Q8H PRN PRN PRN Reason: NAUSEA/VOMITING Oxycodone HCl (Oxycodone 5 Mg Tablet) 5 mg PO Q4H PRN PRN PRN Reason: Pain Score 6-10 Last Admin: 12/03/20 22:37 Dose: 5 mg Documented by: Simethicone (Simethicone 80 Mg Tablet) 80 mg PO TIDPC PRN PRN Reason: bettie abd. Last Admin: 12/10/20 09:37 Dose: 80 mg Documented by: Sodium Chloride (0.9% Saline Lock 10 Ml Syringe) 10 - 40 ml IV UD PRN PRN Reason: SALINE FLUSH Last Admin: 12/04/20 12:00 Dose: 10 ml Documented by: Trimethoprim/Sulfamethoxazole (Smz/Tmp Ds Tablet) 0.[facility] Last Admin: 12/10/20 07:56 Dose: 0.5 tablet Documented by: Discharge Diet: Low fat/ Low Cholesterol, 2000 mg Sodium Diet Discharge Activity: Return to Normal Activity Home Medications: Medications to take at Discharge Losartan Potassium [Cozaar] 50 mg PO DAILY 05/01/16 Simvastatin [Zocor] 10 mg PO QHS 05/01/16 Aspirin [Aspirin, Baby] 81 mg PO DAILY@0800 05/01/19 Multivitamin [Daily Value] 1 ea PO DAILY 12/11/19 Vit C/E/Zn/Coppr/Lutein/Zeaxan [Preservision Areds 2 Softgel] 1 ea PO BID 12/11/19 Lorazepam [Ativan] 0.5 mg PO DAILY PRN PRN 11/30/20 Ondansetron [Ondansetron Odt] 8 mg PO Q6H PRN 11/30/20 Acetaminophen [Tylenol Tablet] 650 mg PO Q6H PRN PRN tab 12/10/20 Menthol/Lanolin/Calamine/Znox [Calmoseptine Ointment] 1 applic TOPICAL BID 12/10/20 Metoprolol Tartrate [Lopressor (beta neetu)] 25 mg PO BID 12/10/20 SimETHICONE [Mylicon] 80 mg PO TIDPC PRN tab 12/10/20 levoFLOXacin tablet [Levaquin tablet] 250 mg PO Q48@0600 12/10/20 Primary Care Physician: Kim Torres MD [Primary Care Provider] - Please follow up with your Primary Care Physician in: within 2 weeks Please Follow Up With: Aramis Matthew MD When: within 1-2 weeks Please Follow Up With: Audra Engle MD When: in 1 week Disposition: Shelter facility Minutes spent on discharge:: 40 Patient Condition:: Stable Medical Necessity - Tobacco Use Smoking Status: Former smoker Tobacco Use: Non-smoker Meaningful Use Info Meaningful Use Diagnoses (Choose all that apply): None applicable Inpatient E&M: 89428 Disch Hosp
--- NOTE | 2020-12-10 13:38 | PCM.PN.REN ---
Patient Problems: Active and Suspected Problems (Last Reviewed 12/02/20 @ 11:[address] Aramis Matthew MD) Gross hematuria (Acute) MERLE (acute kidney injury) (Acute) Debility (Acute) Dehydration (Acute) Urinary tract infection (Acute) Subjective: no new complaints - Physical Exam Vitals/I&O's: Vital Signs Temp Pulse Resp BP Pulse Ox 97.9 F 92 16 122/80 H 98 12/10/20 09:12 12/10/20 09:37 12/10/20 09:12 12/10/20 09:12 12/10/20 09:12 Oxygen Flow Rate (L/min) [10] 2 Oxygen Flow Rate (L/min) [9] 2 Oxygen Flow Rate (L/min) [8] 2 Oxygen Flow Rate (L/min) [7] 2 Oxygen Flow Rate (L/min) [6] 2 Oxygen Flow Rate (L/min) [5] 2 Oxygen Flow Rate (L/min) [4] 2 Oxygen Flow Rate (L/min) [3] 2 Oxygen Flow Rate (L/min) 2 Oxygen Delivery Method [10] Nasal Cannula Oxygen Delivery Method [9] Nasal Cannula Oxygen Delivery Method [8] Nasal Cannula Oxygen Delivery Method [7] Nasal Cannula Oxygen Delivery Method [6] Nasal Cannula Oxygen Delivery Method [5] Nasal Cannula Oxygen Delivery Method [4] Nasal Cannula Oxygen Delivery Method [3] Nasal Cannula Oxygen Delivery Method [2] Room Air Oxygen Delivery Method [1 ( Room Air Initial Baseline)] Oxygen Delivery Method Room Air Weight: 99 kg Body Mass Index (BMI) 30.5 Intake and Output for Last 24 Hours 12/08/20 12/09/20 12/10/20 23:59 23:59 23:59 Intake Total 1160 / 1160 550 / 550 Output Total 2275 / 2275 1650 / 1650 600 / 600 Balance -2275 / -2275 -490 / -490 -50 / -50 General: Alert, Oriented x3, Cooperative HEENT: Atraumatic, PERRLA, EOMI, Normocephalic Neck: Supple, No JVD, Negative Carotid Bruits Lungs: Clear to auscultation, Normal air movement Cardiovascular: Regular rate, No murmurs Abdomen: Bowel Sounds Present, Soft, Non Tender Extremities: No edema, Capillary Refill Less than 3 Seconds Skin: No rashes, No breakdown Musculoskeletal: No Tenderness to Palpation of Joints or Extremities Neurological: Cranial nerves II-XII grossly intact Psych/Mental Status: Normal Affect, Appropriate Microbiology Past 72 Hours 12/06/20 11:12 Urine, Random Urine Culture - Final Staphylococcus aureus Laboratory Results 12/10/20 06:05: WBC 11.7 H, RBC 3.23 L, Hgb 7.8 L, Hct 26.5 L, MCV 82.0, MCH 24.1 L, MCHC 29.4 L, RDW Std Deviation 52.2 H, RDW Coeff of Jeff 17.8 H, Plt Count 172, MPV 10.0, Immature Gran % (Auto) 4.300 H, Neut % (Auto) 64.3, Lymph % (Auto) 15.5 L, [place] % (Auto) 14.6 H, Eos % (Auto) 0.9, Baso % (Auto) 0.4, Absolute Neuts (auto) 7.5, Absolute Lymphs (auto) 1.80, Nucleated RBC % 0, Diff Path Review February12/10/20 06:05: Sodium 145, Potassium 3.5, Chloride 112 H, Carbon Dioxide 24.0, Anion Gap 9, BUN 58 H, Creatinine 4.83 H, Estim Creat Clear Calc 12.38, Est GFR (MDRD) Af Amer 15 L, Est GFR (MDRD) Non-Af 12 L, BUN/Creatinine Ratio 12.0, Glucose 96, Calcium 8.3 L Current Medications Acetaminophen (Acetaminophen 325 Mg Tablet) 650 mg PO Q6H PRN PRN PRN Reason: Pain Score 1-10/Temp > 100.7 F Last Admin: 12/03/20 22:38 Dose: 650 mg Documented by: Al Hydroxide/Mg Hydroxide (Mag Hydrox/Al Hydrox/Simeth 30 Ml Udc) 30 ml PO Q4H PRN PRN PRN Reason: DYSPEPSIA Aspirin (Aspirin 81 Mg Tab.Chew) 81 mg PO DAILY@0800 [facility] Last Admin: 12/10/20 07:55 Dose: 81 mg Documented by: Calamine/Phenol (Menthol/Lanolin/Calamine/Znox 113 Gm Tube) 1 applic TOPICAL BID [facility]; Protocol Last Admin: 12/10/20 09:35 Dose: 1 applicatio Documented by: Calcium Carbonate (Calcium Carbonate 500 Mg Tablet) 500 mg PO Q6H PRN PRN PRN Reason: DYSPEPSIA Last Admin: 12/08/20 18:26 Dose: 500 mg Documented by: Heparin Sodium (Porcine) (Heparin Injection (Vial) 5,000 Unit/Ml Vial) 5,000 unit SC Q12 [facility] Last Admin: 12/10/20 09:37 Dose: 5,000 unit Documented by: Levofloxacin (Levofloxacin 500 Mg Tablet) 250 mg PO Q48@0600 [facility] Last Admin: 12/10/20 05:57 Dose: 250 mg Documented by: Lorazepam (Lorazepam 0.5 Mg Tablet) 0.5 mg PO DAILY PRN PRN PRN Reason: ANXIETY Last Admin: 12/05/20 10:38 Dose: 0.5 mg Documented by: Metoprolol Tartrate (Metoprolol Tartrate 25 Mg Tablet) 25 mg PO BID [facility] Last Admin: 12/10/20 09:37 Dose: 25 mg Documented by: Multivitamins (Multivitamins,Therapeutic Tablet) 1 tablet PO DAILYCM [facility] Last Admin: 12/10/20 07:56 Dose: 1 tablet Documented by: Ondansetron HCl (Ondansetron 4 Mg/2 Ml Vial) 4 mg IV Q8H PRN PRN PRN Reason: NAUSEA/VOMITING Oxycodone HCl (Oxycodone 5 Mg Tablet) 5 mg PO Q4H PRN PRN PRN Reason: Pain Score 6-10 Last Admin: 12/03/20 22:37 Dose: 5 mg Documented by: Simethicone (Simethicone 80 Mg Tablet) 80 mg PO TIDPC PRN PRN Reason: bettie abd. Last Admin: 12/10/20 09:37 Dose: 80 mg Documented by: Sodium Chloride (0.9% Saline Lock 10 Ml Syringe) 10 - 40 ml IV UD PRN PRN Reason: SALINE FLUSH Last Admin: 12/04/20 12:00 Dose: 10 ml Documented by: Medical Necessity - Tobacco Use Smoking Status: Former smoker Assessment/Plan All Active Problems (Last Reviewed 12/02/20 @ 11:[address] Aramis Matthew MD) Gross hematuria (Acute) MERLE (acute kidney injury) (Acute) Debility (Acute) Dehydration (Acute) Urinary tract infection (Acute) 1- MERLE on CKD stage 3. baseline Cr 1.8-2.4 mg/dl MERLE is likely post renal from B/L hydronephrosis.ATN is also possible S/P cystoscopy with pyelogram 12/05. s/p R PNT placement 12/06 Cr is slightly better UOP is adequate No need for urgent [employer] [place] Continue holding losartan 2- Metabolic acidosis from MERLE resolved 3- B/L hydronephrosis. Patient is s/p cystectomy with ileal conduit creation and B/L ureter stents placement in September 2020 s/p cystoscopy with pyelogram 12/05 s/p R PNT placement 12/06 Urology is following. 4- UTI: treatment as per primary dc to TCU today
[2020-12-10] MEDS: Mag Hydrox/Al Hydrox/Simeth 30 ML UDC PO (14:05)
[2020-12-10 14:30] LABS: Pathologist Review Reviewed
[2020-12-10 14:30] LABS: Pathologist Review Reviewed
[2020-12-10 14:43] LABS: Pathologist Review Reviewed
[2020-12-10 14:46] LABS: Pathologist Review Reviewed
--- NOTE | 2020-12-10 15:11 | PHA.DC.MR ---
Pharmacy Service has performed discharge medication reconciliation for this patient upon transfer to TCU Home Medications Losartan Potassium [Cozaar] 50 mg PO DAILY 05/01/16 Simvastatin [Zocor] 10 mg PO QHS 05/01/16 Aspirin [Aspirin, Baby] 81 mg PO DAILY@0800 05/01/19 Multivitamin [Daily Value] 1 ea PO DAILY 12/11/19 Vit C/E/Zn/Coppr/Lutein/Zeaxan [Preservision Areds 2 Softgel] 1 ea PO BID 12/11/19 Metoprolol Tartrate [Lopressor (beta neetu)] 25 mg PO BID #60 tab 12/13/19 Lorazepam [Ativan] 0.5 mg PO DAILY PRN PRN 11/30/20 Ondansetron [Ondansetron Odt] 8 mg PO Q6H PRN 11/30/20 Acetaminophen [Tylenol Tablet] 650 mg PO Q6H PRN PRN tab 12/10/20 Menthol/Lanolin/Calamine/Znox [Calmoseptine Ointment] 1 applic TOPICAL BID tube 12/10/20 SimETHICONE [Mylicon] 80 mg PO TIDPC PRN tab 12/10/20 levoFLOXacin tablet [Levaquin tablet] 250 mg PO Q48@0600 #5 tab 12/10/20 The patient's discharge medication list was reviewed for discrepancies and discrepancies were resolved.
--- NOTE | 2020-12-10 15:26 | CON.PCM_ITS ---
Problem List (1) Urinary tract infection Status: Acute Qualifiers: Urinary tract infection type: acute pyelonephritis Reason for Consult: uti Consulted by: Dr. Araujo History of Present Illness: The patient is a 80 year old M with bladder cancer, recent ileal conduit, presented 12/01 with weakness, MERLE, uti. Now s.p L sided stent replacement 12/[address] Matthew and R sided neph tube 12/06 by radiology. Feeling better, no fever, no cough or SOB. Full ROS performed and neg except as noted above. - Medical History Past Medical History (Chronic Problems): Chronic Problems (Last Reviewed 12/02/20 @ 11:[address] Aramis Matthew MD) Bladder tumor (Chronic) Bladder cancer (Chronic) Leukocytosis (Chronic) Allergies/Adverse Reactions: Allergies atenolol Adverse Reaction (Verified 12/01/20 12:20) hypotension HYPOTENSION tamsulosin [From Flomax] Adverse Reaction (Verified 12/01/20 12:20) PT UNSURE OF REACTION passed out Home Medications: Ambulatory Orders Medication Instructions Recorded Losartan Potassium [Cozaar] 50 mg PO DAILY 05/01/16 Simvastatin [Zocor] 10 mg PO QHS 05/01/16 Aspirin [Aspirin, Baby] 81 mg PO DAILY@0800 05/01/19 Multivitamin [Daily Value] 1 ea PO DAILY 12/11/19 Vit C/E/Zn/Coppr/Lutein/Zeaxan 1 ea PO BID 12/11/19 [Preservision Areds 2 Softgel] Metoprolol Tartrate [Lopressor 25 mg PO BID #60 tab 12/13/19 (beta neetu)] Lorazepam [Ativan] 0.5 mg PO DAILY PRN PRN 11/30/20 Ondansetron [Ondansetron Odt] 8 mg PO Q6H PRN 11/30/20 Acetaminophen [Tylenol Tablet] 650 mg PO Q6H PRN PRN tab 12/10/20 Menthol/Lanolin/Calamine/Znox 1 applic TOPICAL BID tube 12/10/20 [Calmoseptine Ointment] SimETHICONE [Mylicon] 80 mg PO TIDPC PRN tab 12/10/20 levoFLOXacin tablet [Levaquin 250 mg PO Q48@0600 #5 tab 12/10/20 tablet] - Social History SMOKING STATUS:: Former smoker Vital Signs Temp Pulse Resp BP Pulse Ox 97.9 F 92 16 122/80 H 98 12/10/20 09:12 12/10/20 09:37 12/10/20 09:12 12/10/20 09:12 12/10/20 09:12 Oxygen Flow Rate (L/min) [10] 2 Oxygen Flow Rate (L/min) [9] 2 Oxygen Flow Rate (L/min) [8] 2 Oxygen Flow Rate (L/min) [7] 2 Oxygen Flow Rate (L/min) [6] 2 Oxygen Flow Rate (L/min) [5] 2 Oxygen Flow Rate (L/min) [4] 2 Oxygen Flow Rate (L/min) [3] 2 Oxygen Flow Rate (L/min) 2 Oxygen Delivery Method [10] Nasal Cannula Oxygen Delivery Method [9] Nasal Cannula Oxygen Delivery Method [8] Nasal Cannula Oxygen Delivery Method [7] Nasal Cannula Oxygen Delivery Method [6] Nasal Cannula Oxygen Delivery Method [5] Nasal Cannula Oxygen Delivery Method [4] Nasal Cannula Oxygen Delivery Method [3] Nasal Cannula Oxygen Delivery Method [2] Room Air Oxygen Delivery Method [1 ( Room Air Initial Baseline)] Oxygen Delivery Method Room Air Weight: 99 kg Body Mass Index (BMI) 30.5 Microbiology Past 72 Hours 12/06/20 11:12 Urine Culture - Final Urine, Random Staphylococcus aureus Laboratory Tests Past 24 Hrs 12/07/20 12/08/20 12/09/20 07:49 07:40 04:51 WBC RBC Hgb Hct MCV MCH MCHC RDW Std Deviation RDW Coeff of Jeff Plt Count MPV Immature Gran % (Auto) Neut % (Auto) Lymph % (Auto) Towner % (Auto) Eos % (Auto) Baso % (Auto) Absolute Neuts (auto) Absolute Lymphs (auto) Nucleated RBC % Diff Path Review Reviewed Reviewed Reviewed Sodium Potassium Chloride Carbon Dioxide Anion Gap BUN Creatinine Estim Creat Clear Calc Est GFR (MDRD) Af Amer Est GFR (MDRD) Non-Af BUN/Creatinine Ratio Glucose Calcium 12/10/20 12/10/20 06:05 06:05 WBC 11.7 H RBC 3.23 L Hgb 7.8 L Hct 26.5 L MCV 82.0 MCH 24.1 L MCHC 29.4 L RDW Std Deviation 52.2 H RDW Coeff of Jeff 17.8 H Plt Count 172 MPV 10.0 Immature Gran % (Auto) 4.300 H Neut % (Auto) 64.3 Lymph % (Auto) 15.5 L Towner % (Auto) 14.6 H Eos % (Auto) 0.9 Baso % (Auto) 0.4 Absolute Neuts (auto) 7.5 Absolute Lymphs (auto) 1.80 Nucleated RBC % 0 Diff Path Review Reviewed Sodium 145 Potassium 3.5 Chloride 112 H Carbon Dioxide 24.0 Anion Gap 9 BUN 58 H Creatinine 4.83 H Estim Creat Clear Calc 12.38 Est GFR (MDRD) Af Amer 15 L Est GFR (MDRD) Non-Af 12 L BUN/Creatinine Ratio 12.0 Glucose 96 Calcium 8.3 L - Other Studies Radiology: [] Other Studies: [] Route of nutrition/ use of supplements: [] Nutritional Intake: [] IV Site: [] Mcpherson Catheter: [] - Physical Exam General: Cooperative, No apparent distress HEENT: Atraumatic, PERRLA, EOMI Neck: Supple, No Nodes Lungs: Clear to auscultation, Normal air movement Cardiovascular: Regular rate, Regular Rhythm Abdomen: Soft, Non Tender, Non-Distended, - - ileal conduit and neph tube in p lace Extremities: No edema Skin: No rashes IV Site: Peripheral, without redness Musculoskeletal: No Tenderness to Palpation of Joints or Extremities Neurological: Cranial nerves II-XII grossly intact - Assessment/Plan Antibiotics: [] Assessment/Plan: [] Active and Suspected Problems (Last Reviewed 12/02/20 @ 11:[address] Aramis Matthew MD) Gross hematuria (Acute) MERLE (acute kidney injury) (Acute) Debility (Acute) Dehydration (Acute) Urinary tract infection (Acute) uti - now s/p L sided stent exchange and R sided nephrostomy tube placement. Ucx with mssa, pseudomonas, and panteoa. Will stop bactrim. Levaquin covers those 3 organisms. Wrote for 10 more days. Will follow as needed, thank you
[2020-12-10 15:37] VITALS: BP 137/80; PULSE 76; RESP 16; TEMP 36.6; O2SAT 98
[2020-12-10 16:00] VITALS: BP 137/80; PULSE 76; RESP 18; TEMP 36.7; O2SAT 98
--- NOTE | 2020-12-10 16:06 | CASEMGMT ---
Social Work Note Pt's daughter Irina present at [facility]. SW updated pt and Irina that pt will be discharged to TCU today. Plan: TCU Today Sulma Mcclellan EMERGENCY OPERATOR, IT APPLICATIONS MANAGER
== END 2020-12-10 16:30 | disposition skilled nursing facility (03) | DRG 659 ==
LOC: ED 12:40 → MS3 15:11
PROVIDERS: Student in an Organized Health Care Education/Training Program; Urology; Emergency Provider Emergency Medicine; PCP Internal Medicine; Visit Provider Internal Medicine
PROC: 0TP98DZ Removal of Intraluminal Device from Ureter, Via Natural or Artificial Opening Endoscopic (ICD-10-PCS; CPT 50688; principal; 2020-12-05 14:55)
DX: T83.518A Infection and inflammatory reaction due to other urinary catheter, initial encounter (principal); N17.0 Acute kidney failure with tubular necrosis; N39.0 Urinary tract infection, site not specified; E87.2 Acidosis; N13.8 Other obstructive and reflux uropathy; N13.6 Pyonephrosis; I12.0 Hypertensive chronic kidney disease with stage 5 chronic kidney disease or end stage renal disease; N18.5 Chronic kidney disease, stage 5; B95.61 Methicillin susceptible Staphylococcus aureus infection as the cause of diseases classified elsewhere; B96.5 Pseudomonas (aeruginosa) (mallei) (pseudomallei) as the cause of diseases classified elsewhere; B96.89 Other specified bacterial agents as the cause of diseases classified elsewhere; R31.0 Gross hematuria; D72.829 Elevated white blood cell count, unspecified; D63.1 Anemia in chronic kidney disease; E87.6 Hypokalemia; C67.9 Malignant neoplasm of bladder, unspecified; E78.00 Pure hypercholesterolemia, unspecified; E86.0 Dehydration; Z66 Do not resuscitate; N40.1 Benign prostatic hyperplasia with lower urinary tract symptoms; R29.6 Repeated falls; R53.81 Other malaise; E66.9 Obesity, unspecified; Z90.6 Acquired absence of other parts of urinary tract; Z68.30 Body mass index [BMI] 30.0-30.9, adult; Z79.899 Other long term (current) drug therapy; Z87.442 Personal history of urinary calculi; Z87.891 Personal history of nicotine dependence
CPT/HCPCS: 36415; 50432; 71045; 76000; 76770; 80048; 80053; 80202; 81001; 82570; 82607; 82728; 82746; 83540; 83550; 83605; 84300; 84443; 84484; 85025; 85610; 85730; 86850; 86900; 86901; 86920; 86922; 87040; 87077; 87086; 87088; 87186; 87205; 87426; 93005; 97110; 97116; 97162; 97166; 97530; 97535; 97802; 99155; 99156; 99157; 99285; J7030; J7040; P9016; Q9965; A4216; C1769; J2405

== ENCOUNTER 2020-12-10 16:45 | Inpatient (IN) | payer MEDICARE, OTHER, SELFPAY ==
[2020-12-06 10:09] VITALS: BMI 30.5
[2020-12-10 16:59] VITALS: BP 134/83; PULSE 64; RESP 16; TEMP 36.7; O2SAT 94; BMI 30.1
--- NOTE | 2020-12-10 18:09 | RAD_ITS ---
STUDY: X-RAY - ABDOMEN/PELVIS REASON FOR EXAM: Male, 80 years old. Diarrhea. TECHNIQUE: Two AP supine views of the abdomen and pelvis. COMPARISON: None. FINDINGS: Normal visualized lung bases. There is diffuse gaseous distention of small bowel loops throughout the abdomen. Is mild dilatation of the colon. There is no demonstrated free abdominal air. The visualized liver, spleen and kidneys are grossly normal in size and morphology. There is a right nephrostomy tube. There is a left sided ureteral catheter which ends in the abdomen overlying the right sacral ala, and the approximate position of the ileal conduit. Normal soft tissue structures. There are diffuse degenerative changes of the visualized lumbar spine. RAD/Abdomen Single View IMPRESSION: 1. Dilated loops of large and small bowel. Question ileus. 2. Left ureteral stent. 3. Right nephrostomy tube. Electronically Signed: Mikey Reyes DO at 22:36 EST Tel [phone], Service support ,
[2020-12-10] MEDS: Multivitamin (Healthy Eyes) Capsule 1 CAP PO (18:22)
[2020-12-10] MEDS: Juven (unflavored) Packet 1 PACKET PO (18:22)
[2020-12-10 18:23] VITALS: PULSE 64
[2020-12-10] MEDS: Metoprolol Tartrate 25 MG Tablet PO (18:23)
[2020-12-10 18:30] VITALS: BMI 30.1
--- NOTE | 2020-12-10 19:43 | PCM.HP.STD ---
Problem List (1) Weakness Status: Acute (2) Hypokalemia Status: Acute (3) Hypertension Status: Chronic (4) Hyperlipidemia Status: Chronic (5) Anxiety Status: Chronic (6) Appetite loss Status: Chronic (7) Gross hematuria Status: Acute (8) Bladder cancer Status: Chronic Qualifiers: (9) Leukocytosis Status: Acute Qualifiers: (10) MERLE (acute kidney injury) Status: Acute (11) Debility Status: Acute (12) Urinary tract infection Status: Acute History of Present Illness Date of Admission: 12/10/20 Chief Complaint: Here for rehabilitation, strengthening, prior to discharge home with . 12/01/2020 The patient is a 80 year old Male with below past medical history presented to [facility] Emergency Department with weakness. 12/01/2020 EKG sinus rhythm with premature supraventricular contractions, frequent premature ventricular contractions, left axis deviation, septal infarct, age undetermined, inferior infarct, age undetermined. 12/01/2020 Chest X-ray negative. 12/01/2020 Renal ultrasound stable bilateral moderate hydronephrosis. Bladder cancer, recent TURP, TURBT, ileal conduit placement. Diarrhea, weakness, unable to stand. WBC 29.1, BUN 78, Cr 6.80. Normal Saline 500cc IV bolus, bolus repeated. WBC chronically elevated. 12/01/2020 Admit to Hospital. Hold Losartan, send urine studies, IV fluids for acute kidney injury. PT/OT for debility. Leukocytosis concerning for chronic leukemia. 12/05/2020 Urology performed flexible cystoscopy via ileal conduit, removal of old stent, Loopogram, placement of stent left side. 12/06/2020 IR placed right nephrostomy tube. Creatinine improved to 4.9. FeNA indicates intrinsic renal disease. IR placed right nephrostomy tube. Gentle IV fluids, hold Losartan for acute kidney injury. WBC improved to 12.3. Non-anion gap metabolic acidosis resolved. Hypokalemia resolved. Anemia status post 1 unit PRBC transfusion, transfuse if hemoglobin less than 7.0. S. Aureus, Pseudomonas, Panteoa urinary tract infection treated with Bactrim, Levaquin. 12/10/2020 Infectious Disease noted MSSA, Pseudomonas, Panteoa urinary tract infection, stop Bactrim, treat with Levaquin for 10 more days. 12/10/2020 Admit to TCU with debility, here for rehabilitation, strengthening, prior to discharge home with . Past Medical History Past Medical History (Chronic Problems): Chronic Problems (Last Reviewed 12/02/20 @ 11:[address] Aramis Matthew MD) Bladder tumor (Chronic) Bladder cancer (Chronic) Hypertension (Chronic) Hyperlipidemia (Chronic) Anxiety (Chronic) Appetite loss (Chronic) Medical History: Medical History (Last Reviewed 12/02/20 @ 11:[address] 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 CKD (chronic kidney disease) stage 3, GFR 30-59 ml/min N18.30 HTN (hypertension) I10 Allergies atenolol Adverse Reaction (Verified 12/01/20 12:20) hypotension HYPOTENSION tamsulosin [From Flomax] Adverse Reaction (Verified 12/01/20 12:20) PT UNSURE OF REACTION passed out Home Medications: Ambulatory Orders Medication Instructions Recorded Losartan Potassium [Cozaar] 50 mg PO DAILY 05/01/16 Simvastatin [Zocor] 10 mg PO QHS 05/01/16 Aspirin [Aspirin, Baby] 81 mg PO DAILY@0800 05/01/19 Multivitamin [Daily Value] 1 ea PO DAILY 12/11/19 Vit C/E/Zn/Coppr/Lutein/Zeaxan 1 ea PO BID 12/11/19 [Preservision Areds 2 Softgel] Lorazepam [Ativan] 0.5 mg PO DAILY PRN PRN 11/30/20 Ondansetron [Ondansetron Odt] 8 mg PO Q6H PRN 11/30/20 Acetaminophen [Tylenol Tablet] 650 mg PO Q6H PRN PRN tab 12/10/20 Menthol/Lanolin/Calamine/Znox 1 applic TOPICAL BID 12/10/20 [Calmoseptine Ointment] Metoprolol Tartrate [Lopressor 25 mg PO BID 12/10/20 (beta neetu)] SimETHICONE [Mylicon] 80 mg PO TIDPC PRN tab 12/10/20 levoFLOXacin tablet [Levaquin 250 mg PO Q48@0600 12/10/20 tablet] Surgical History: Surgical History (Last Reviewed 12/02/20 @ 11:[address] Aramis Matthew MD) History of cystoscopy Z98.890 2015, 05/06/19 TURBT >5cm 08/22/2020, 02/04/2019 TURP 2015, 2005 Surgical History: TURP, - - TURBT, Ileal conduit, right nephrostomy tube. Psychiatric History: No pertinent psych hx Lives: Spouse/ Significant Other Smoking Status: Former smoker Tobacco Use: Non-smoker Alcohol: None Drugs: None - *Family History Maternal History Items: No pertinent history Paternal History Items: No pertinent history Review of Systems Constitutional: Denies: Chills, Fever, Weight Change HEENT: Denies: Head Aches, Sinus Congestion, Sinus Drainage Cardiovascular: Denies: Chest Pain, Palpitations Respiratory: Denies: Cough, Shortness of breath at rest, Sputum production Gastrointestinal: Denies: Abdominal Pain, Nausea, Vomiting Genitourinary: Denies: Dysuria Musculoskeletal: Denies: Joint Pain, Joint Tenderness Skin: Denies: Rash, Wounds Neurological: Denies: Numbness, Tingling, Focal weakness Psychiatric: Denies: Anxiety, Depression, Homicidal Ideations, Suicidal Ideations Hematologic/ Lymphatic: Denies: Easy Bruising, Easy Bleeding VTE Information - Inpt Only VTE Present on Admission: No VTE Mechan Device Prophylaxis: Knee High STACIE Hose VTE Pharm Prophylaxis ordered?: No Reason prophylaxis not ordered:: Medical Contraindication Patient Problems: Active and Suspected Problems (Last Reviewed 12/02/20 @ 11:[address] Aramis Matthew MD) Gross hematuria (Acute) Leukocytosis (Acute) MERLE (acute kidney injury) (Acute) Debility (Acute) Urinary tract infection (Acute) Weakness (Acute) Hypokalemia (Acute) - Physical Exam Vitals/I&O's: Vital Signs Temp Pulse Resp BP Pulse Ox 98.0 F 64 16 134/83 H 94 12/10/20 16:59 12/10/20 18:23 12/10/20 16:59 12/10/20 16:59 12/10/20 16:59 Oxygen Delivery Method Room Air Weight: 97.97 kg Body Mass Index (BMI) 30.1 Intake and Output for Last 24 Hours 12/08/20 12/09/20 12/10/20 23:59 23:59 23:59 Intake Total 120 / 120 Output Total 150 / 150 Balance -30 / -30 General: Alert, Oriented x3, Cooperative HEENT: Atraumatic, PERRLA, EOMI, Normocephalic Neck: Supple, No JVD, Negative Carotid Bruits Lungs: Clear to auscultation, Normal air movement Cardiovascular: Regular rate, No murmurs Abdomen: Bowel Sounds Present, Soft, Non Tender, - - Right nephrostomy tube, right lower quadrant ileal conduit. Extremities: No edema, Capillary Refill Less than 3 Seconds Skin: No rashes, No breakdown Musculoskeletal: No Tenderness to Palpation of Joints or Extremities Neurological: Cranial nerves II-XII grossly intact Psych/Mental Status: Normal Affect, Appropriate Current Medications Acetaminophen (Acetaminophen 325 Mg Tablet) 650 mg PO Q6H PRN PRN PRN Reason: Pain Score 1-10/Temp > 100.7 F Aspirin (Aspirin 81 Mg Tab.Chew) 81 mg PO DAILY@0800 ON LICENSE OF [facility] Atorvastatin Calcium (Atorvastatin Calcium 10 Mg Tablet) 5 mg PO QHS ON LICENSE OF [facility] Calamine/Phenol (Menthol/Lanolin/Calamine/Znox 113 Gm Tube) 1 applic TOPICAL BID ON LICENSE OF [facility]; Protocol L-Arginine/L-Glutamine/Calcium HMB (Hao (Unflavored) Packet) 1 packet PO 18 ON LICENSE OF [facility] Last Admin: 12/10/20 18:22 Dose: 1 packet Documented by: Levofloxacin (Levofloxacin 250 Mg Tablet) 250 mg PO Q48@0600 ON LICENSE OF [facility] Stop: 12/20/20 06:01 Lorazepam (Lorazepam 0.5 Mg Tablet) 0.5 mg PO DAILY PRN PRN PRN Reason: ANXIETY Losartan Potassium (Losartan Potassium 50 Mg Tablet) 50 mg PO DAILY ON LICENSE OF [facility] Metoprolol Tartrate (Metoprolol Tartrate 25 Mg Tablet) 25 mg PO BID ON LICENSE OF [facility] Last Admin: 12/10/20 18:23 Dose: 25 mg Documented by: Multivitamins (Multivitamins,Therapeutic Tablet) [facility] Multivitamins/Minerals (Multivitamin (Healthy Eyes) Capsule) 1 capsule PO BID ON LICENSE OF [facility] Last Admin: 12/10/20 18:22 Dose: 1 capsule Documented by: Ondansetron HCl (Ondansetron 8 Mg Tablet) 8 mg PO Q6H PRN PRN Reason: NAUSEA Simethicone (Simethicone 80 Mg Tablet) 80 mg PO TIDPC PRN PRN Reason: GAS/ ABDOMINAL PAIN Tuberculin PPD (Tuberculin,Purif.Prot.Deriv. 50 Tu/Ml Vial) 5 tu ID [id number] ONE Stop: 12/11/20 10:01 Tuberculin PPD (Tuberculin,Purif.Prot.Deriv. 50 Tu/Ml Vial) 5 tu ID X1 ONE Stop: 12/18/20 10:01 Assessment/Plan All Active Problems (Last Reviewed 12/02/20 @ 11:[address] Aramis Matthew MD) Gross hematuria (Acute) Leukocytosis (Acute) MERLE (acute kidney injury) (Acute) Debility (Acute) Dehydration (Acute) Urinary tract infection (Acute) Weakness (Acute) Hypokalemia (Acute) 80 year old male with below past medical history hospitalized for complicated polymicrobial urinary tract infection, complicated by acute on chronic kidney failure, ureteral obstruction, anemia, admitted to TCU with debility, here for rehabilitation, strengthening, prior to discharge home with . Debility - PT/OT. Pain - Tylenol 1000MG Q6H PRN pain (1-10). Bowel - Miralax 17GM daily, Senna/colace 1 tablet BID, Dulcolax 10MG PO daily PRN. Adult immunization - Administer Prevnar 13, Pneumovax 23, Fluzone, COVID19 vaccine as appropriate. DVT prophylaxis - Hold, anemia. CV prophylaxis - Aspirin 81MG daily. Hyperlipidemia - Atorvastatin 5MG QHS. Nutrition - MVI daily, Hao 1 packet BID. MSSA, Pseudomonas, Panteoa UTI - Levaquin 250MG Q48H thru 12/20/2020. 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 Hypertension - Metoprolol 25MG BID, Losartan 50MG daily. Skin irritation - Calmoseptine topical BID. Macular degeneration - Healthy Eyes 1 capsule BID. Nausea - Zofran 8MG Q6H PRN. Gas - Simethicone 80MG TIDPC PRN.
[2020-12-10] MEDS: Atorvastatin Calcium 10 MG Tablet 5 MG PO (20:27)
[2020-12-10] MEDS: Menthol/Lanolin/Calamine/Znox 113 GM Tube 1 APPLIC TOPICAL (20:27)
[2020-12-11 06:00] LABS: Absolute Lymphocyte Count 1.91 X10^3/uL (0.83-4.51); Absolute Neutrophil Count 8.4 X10^3/uL (2.0-7.7); Basophil# 0.06 X10^3/uL; Basophil% 0.5 % (0-1); Eosinophil# 0.11 X10^3/uL; Eosinophils% 0.8 % (0-5); Hematocrit 27.8 % (40-54); Lymphocyte # 1.91 X10^3/ul (4.0); Lymphocyte % 14.4 % (19-41); Mean Corp Hgb Conc 28.8 g/dL (32-36); Mean Corpuscular Hgb 23.7 pg (27.0-32.0); Mean Corpuscular Volume 82.2 fL (80-94); Mean Platelet Vol. 10.5 fl (6.2-12.0); Monocyte# 2.27 X10^3/uL; Monocyte% 17.1 % (0-10); NRBC Flagged by Analyzer 0 % (0-5); Neutrophil # 8.43 X10^3/uL (2.7-7.7); Neutrophil % 63.7 % (47-70); POSITIVE DIFFERENTIAL YES; Platelet Count 177 K/mm3 (150-450); RBC Distribution Width CV 17.9 % (11.6-14.6); Red Blood Count 3.38 M/mm3 (4.6-6.2); White Blood Count 13.3 K/mm3 (4.4-11.0)
[2020-12-11 06:23] LABS: Anion Gap 8 (5-15); BUN 57 mg/dL (7-18); BUN/Creat Ratio 12.5 RATIO (10-20); Calcium,Total 8.5 mg/dL (8.5-10.1); Chloride 112 mmol/L (98-107); Creatinine, Serum 4.55 mg/dL (0.70-1.30); EST Glomerular Filtration Rate 13 mL/min (>60); Est Glom Filt Rate - Afr Amer 16 mL/min (>60); Estimated Creatinine Clearance 13.56 ml/min; Glucose 97 mg/dL (74-106); Potassium 3.5 mmol/L (3.5-5.1); Sodium Level 145 mmol/L (136-145)
[2020-12-11 06:28] LABS: Differential Comment SCANNED
[2020-12-11 06:29] VITALS: BP 123/74; PULSE 80; RESP 18; TEMP 36.6; O2SAT 95
[2020-12-11 06:31] LABS: Hypochromasia 1+
[2020-12-11] MEDS: Polyethylene Glycol 3350 17 GM PACKET PO (06:37)
[2020-12-11 06:38] VITALS: BP 123/74; PULSE 80
[2020-12-11] MEDS: Metoprolol Tartrate 25 MG Tablet PO ×2 (06:38→17:52)
[2020-12-11] MEDS: Losartan Potassium 50 MG Tablet PO (06:38)
[2020-12-11] MEDS: Multivitamin (Healthy Eyes) Capsule 1 CAP PO ×2 (06:38→17:52)
[2020-12-11] MEDS: Menthol/Lanolin/Calamine/Znox 113 GM Tube 1 APPLIC TOPICAL ×2 (06:39→17:51)
[2020-12-11] MEDS: Senna/Docusate Sodium 1 Tablet PO ×2 (06:39→17:52)
[2020-12-11] MEDS: Multivitamins,Therapeutic Tablet 1 TABLET PO (08:47)
[2020-12-11] MEDS: Aspirin 81 MG TAB.CHEW PO (08:47)
[2020-12-11] MEDS: Tuberculin,Purif.prot.deriv. 50 TU/ML Vial 5 ML ID (09:57)
--- NOTE | 2020-12-11 10:15 | NURSING ---
In to change the urostomy appliance. appliance emptied for 75 cc's yellow urine with mucous shreds. no odor noted. appliance removed. peristomal skin is intact. cleansed skin with warm water. pat dry. applied a new flat 1 piece Aurelio appliance. pt tolerated well. will continue to monitor. pt denies further needs. did also empty the nephrostomy appliance for 200 cc's clear yellow urine.
[2020-12-11] MEDS: Juven (unflavored) Packet 1 PACKET PO (11:12)
[2020-12-11 11:22] VITALS: O2SAT 96
[2020-12-11] MEDS: LORazepam 0.5 MG Tablet PO (11:22)
--- NOTE | 2020-12-11 11:24 | NURSING ---
PT HAS BEEN SHAKY AND VERY TEARFUL THIS MORNING. DID SOME 1 ON WITH PT AND ASKED PT IF THERE WAS ANY THING I COULD DO FOR HIM AND PATENT STATED NO. GAVE PT PRN ATIVAN. WILL CONTINUE TO MONITOR. RN AWARE.
[2020-12-11 13:20] LABS: Pathologist Review Reviewed
[2020-12-11 14:18] VITALS: BP 139/77; PULSE 64; RESP 16; TEMP 36.3; O2SAT 96
--- NOTE | 2020-12-11 15:16 | PHA.CONS_ITS ---
<Rebollar,Roberta - Last Filed: 12/11/20 15:16> Progress Note - Pharmacy Subjective: TCU Admission Objective: Allergies atenolol Adverse Reaction (Verified 12/01/20 12:20) hypotension HYPOTENSION tamsulosin [From Flomax] Adverse Reaction (Verified 12/01/20 12:20) PT UNSURE OF REACTION passed out Current Medications Generic Name Dose Route Start Last Admin Trade Name Freq PRN Reason Stop Dose Admin Acetaminophen 1,000 mg 12/10/20 20:03 Acetaminophen 500 Mg Tablet PO Q6H PRN PRN Pain Score 1-10 Aspirin 81 mg 12/11/20 08:00 12/11/20 08:47 Aspirin 81 Mg Tab.Chew PO 81 mg DAILY@0800 COUNT INCLUDES THE [facility] Administration Atorvastatin Calcium 5 mg 12/10/20 22:00 12/10/20 20:27 Atorvastatin Calcium 10 Mg Tablet PO 5 mg QHS SHANE Administration Bisacodyl 10 mg 12/10/20 20:03 Bisacodyl 5 Mg Tablet PO DAILY PRN Constipation Calamine/Phenol 1 applic 12/10/20 18:00 12/11/20 06:39 Menthol/Lanolin/Calamine/Znox 113 Gm Tube TOPICAL 1 applicatio BID SHANE Administration Protocol Emollient Ointment 1 applic 12/11/20 22:00 Emollient Combination No.72 500 Ml Lotion TOPICAL HS COUNT INCLUDES THE [facility] Protocol L-Arginine/L-Glutamine/Calcium HMB 1 packet 12/10/20 18:00 12/11/20 11:12 Hao (Unflavored) Packet PO 1 packet 11,18 SHANE Administration Levofloxacin 250 mg 12/12/20 06:00 Levofloxacin 250 Mg Tablet PO 12/20/20 06:01 Q48@0600 COUNT INCLUDES THE [facility] Lorazepam 0.5 mg 12/10/20 17:04 12/11/20 11:22 Lorazepam 0.5 Mg Tablet PO 0.5 mg DAILY PRN PRN Administration ANXIETY Losartan Potassium 50 mg 12/11/20 06:00 12/11/20 06:38 Losartan Potassium 50 Mg Tablet PO 50 mg DAILY SHANE Administration Metoprolol Tartrate 25 mg 12/10/20 18:00 12/11/20 06:38 Metoprolol Tartrate 25 Mg Tablet PO 25 mg BID SHANE Administration Multivitamins 1 tablet 12/11/20 08:00 12/11/20 08:47 Multivitamins,Therapeutic Tablet PO 1 tablet DAILYCM SHANE Administration Multivitamins/Minerals 1 capsule 12/10/20 18:00 12/11/20 06:38 Multivitamin (Healthy Eyes) Capsule PO 1 capsule BID SHANE Administration Ondansetron HCl 8 mg 12/10/20 17:04 Ondansetron 8 Mg Tablet PO Q6H PRN NAUSEA Polyethylene Glycol 17 gm 12/11/20 06:00 12/11/20 06:37 Polyethylene Glycol 3350 17 Gm Packet PO 17 gm DAILY SHANE Administration Senna/Docusate Sodium 1 tablet 12/11/20 06:00 12/11/20 06:39 Senna/Docusate Sodium 1 Tablet PO 1 tablet BID SHANE Administration Simethicone 80 mg 12/10/20 17:04 Simethicone 80 Mg Tablet PO TIDPC PRN GAS/ ABDOMINAL PAIN Tuberculin PPD 5 tu 12/18/20 10:00 Tuberculin,Purif.Prot.Deriv. 50 Tu/Ml Vial ID 12/18/20 10:01 X1 ONE Problem List (Last Reviewed 12/02/20 @ 11:[address] Aramis Matthew MD) Gross hematuria (Acute) Bladder cancer (Chronic) Leukocytosis (Acute) MERLE (acute kidney injury) (Acute) Debility (Acute) Urinary tract infection (Acute) Weakness (Acute) Hypokalemia (Acute) Hypertension (Chronic) Hyperlipidemia (Chronic) Anxiety (Chronic) Appetite loss (Chronic) Vital Signs Temp Pulse Resp BP Pulse Ox 97.4 F L 64 16 139/77 H 96 12/11/20 14:18 12/11/20 14:18 12/11/20 14:18 12/11/20 14:18 12/11/20 14:18 Oxygen Delivery Method Room Air Weight: 97.976 kg Body Mass Index (BMI) 30.1 Sodium 145 mmol/L (136-145) 12/11/20 05:21 Potassium 3.5 mmol/L (3.5-5.1) 12/11/20 05:21 Chloride 112 mmol/L (98-107) H 12/11/20 05:21 Carbon Dioxide 25.0 mmol/L (21.0-32.0) 12/11/20 05:21 Anion Gap 8 (5-15) 12/11/20 05:21 BUN 57 mg/dL (7-18) H 12/11/20 05:21 Creatinine 4.55 mg/dL (0.70-1.30) H 12/11/20 05:21 Est GFR (MDRD) Af Amer 16 mL/min (>60) L 12/11/20 05:21 Est GFR (MDRD) Non-Af 13 mL/min (>60) L 12/11/20 05:21 BUN/Creatinine Ratio 12.5 RATIO (10-20) 12/11/20 05:21 Glucose 97 mg/dL (74-106) 12/11/20 05:21 Assessment/Plan: 1. Pain: acetaminophen 1000mg PO Q6H PRN pain 1-10. Please continue to monitor for S/S of increased pain and PRN usage. 2. MSSA/Pseudomonas/[place] UTI: levofloxacin 250mg PO Q48H thru 12/20/20. Please continue to monitor renal function, S/S of infection, and diarrhea. 3. CV prophylaxis: aspirin 81mg PO DAILYCM. Please continue to monitor for S/S of bleeding. *4. Hyperlipidemia: atorvastatin 5mg PO QHS. Patient does not have a lipid panel on file. Please consider ordering one now and then annually as clinically appropriate. Thanks. 5. Hypertension: losartan 50mg PO daily and metoprolol tartrate 25mg PO BID. Please continue to monitor HR (last 64), BP (last 137/77), and renal function. 6. Nausea: ondansetron 8mg PO Q6H PRN nausea. Please continue to monitor for nausea and PRN usage. 7. Gas: simethicone 80mg PO TIDPC PRN gas/abdominal pain. Please continue to monitor for gas and PRN usage. 8. Nutrition/macular degeneration: multivitamin 1T PO DAILYCM and healthy eyes 1C PO BID. Please continue to monitor. Psychotropic Medications: 1. Anxiety: lorazepam 0.5mg PO daily PRN anxiety. Please see physician note regarding GDR. Unnecessary Medications: None Bowel Regimen: Miralax 17gm PO daily, senna/docusate 1T PO BID and bisacodyl 10mg PO daily PRN constipation. Please continue to monitor for S/S of consti pation and PRN usage. Date of Note:: 12/11/20 - Provider Comments Provider responsibility: Provider responsible to enter orders to implement recommendations <Ruy Abdi Chi - Last Filed: 12/11/20 17:21> Progress Note - Pharmacy Subjective: [] Objective: Allergies atenolol Adverse Reaction (Verified 12/01/20 12:20) hypotension HYPOTENSION tamsulosin [From Flomax] Adverse Reaction (Verified 12/01/20 12:20) PT UNSURE OF REACTION passed out Current Medications Generic Name Dose Route Start Last Admin Trade Name Freq PRN Reason Stop Dose Admin Acetaminophen 1,000 mg 12/10/20 20:03 Acetaminophen 500 Mg Tablet PO Q6H PRN PRN Pain Score 1-10 Aspirin 81 mg 12/11/20 08:00 12/11/20 08:47 Aspirin 81 Mg Tab.Chew PO 81 mg DAILY@0800 COUNT INCLUDES THE [facility] Administration Atorvastatin Calcium 5 mg 12/10/20 22:00 12/10/20 20:27 Atorvastatin Calcium 10 Mg Tablet PO 5 mg QHS SHANE Administration Bisacodyl 10 mg 12/10/20 20:03 Bisacodyl 5 Mg Tablet PO DAILY PRN Constipation Calamine/Phenol 1 applic 12/10/20 18:00 12/11/20 06:39 Menthol/Lanolin/Calamine/Znox 113 Gm Tube TOPICAL 1 applicatio BID SHANE Administration Protocol Emollient Ointment 1 applic 12/11/20 22:00 Emollient Combination No.72 500 Ml Lotion TOPICAL HS COUNT INCLUDES THE [facility] Protocol L-Arginine/L-Glutamine/Calcium HMB 1 packet 12/10/20 18:00 12/11/20 11:12 Hao (Unflavored) Packet PO 1 packet 11,18 SHANE Administration Levofloxacin 250 mg 12/12/20 06:00 Levofloxacin 250 Mg Tablet PO 12/20/20 06:01 Q48@0600 COUNT INCLUDES THE [facility] Lorazepam 0.5 mg 12/10/20 17:04 12/11/20 11:22 Lorazepam 0.5 Mg Tablet PO 0.5 mg DAILY PRN PRN Administration ANXIETY Losartan Potassium 50 mg 12/11/20 06:00 12/11/20 06:38 Losartan Potassium 50 Mg Tablet PO 50 mg DAILY SHANE Administration Metoprolol Tartrate 25 mg 12/10/20 18:00 12/11/20 06:38 Metoprolol Tartrate 25 Mg Tablet PO 25 mg BID SHANE Administration Multivitamins 1 tablet 12/11/20 08:00 12/11/20 08:47 Multivitamins,Therapeutic Tablet PO 1 tablet DAILYCM SHANE Administration Multivitamins/Minerals 1 capsule 12/10/20 18:00 12/11/20 06:38 Multivitamin (Healthy Eyes) Capsule PO 1 capsule BID SHANE Administration Ondansetron HCl 8 mg 12/10/20 17:04 Ondansetron 8 Mg Tablet PO Q6H PRN NAUSEA Polyethylene Glycol 17 gm 12/11/20 06:00 12/11/20 06:37 Polyethylene Glycol 3350 17 Gm Packet PO 17 gm DAILY SHANE Administration Senna/Docusate Sodium 1 tablet 12/11/20 06:00 12/11/20 06:39 Senna/Docusate Sodium 1 Tablet PO 1 tablet BID SHANE Administration Simethicone 80 mg 12/10/20 17:04 Simethicone 80 Mg Tablet PO TIDPC PRN GAS/ ABDOMINAL PAIN Tuberculin PPD 5 tu 12/18/20 10:00 Tuberculin,Purif.Prot.Deriv. 50 Tu/Ml Vial ID 12/18/20 10:01 X1 ONE Problem List (Last Reviewed 12/02/20 @ 11:[address] Aramis Matthew MD) Gross hematuria (Acute) Bladder cancer (Chronic) Leukocytosis (Acute) MERLE (acute kidney injury) (Acute) Debility (Acute) Urinary tract infection (Acute) Weakness (Acute) Hypokalemia (Acute) Hypertension (Chronic) Hyperlipidemia (Chronic) Anxiety (Chronic) Appetite loss (Chronic) Vital Signs Temp Pulse Resp BP Pulse Ox 97.4 F L 64 16 139/77 H 96 12/11/20 14:18 12/11/20 14:18 12/11/20 14:18 12/11/20 14:18 12/11/20 14:18 Oxygen Delivery Method Room Air Weight: 97.976 kg Body Mass Index (BMI) 30.1 Sodium 145 mmol/L (136-145) 12/11/20 05:21 Potassium 3.5 mmol/L (3.5-5.1) 12/11/20 05:21 Chloride 112 mmol/L (98-107) H 12/11/20 05:21 Carbon Dioxide 25.0 mmol/L (21.0-32.0) 12/11/20 05:21 Anion Gap 8 (5-15) 12/11/20 05:21 BUN 57 mg/dL (7-18) H 12/11/20 05:21 Creatinine 4.55 mg/dL (0.70-1.30) H 12/11/20 05:21 Est GFR (MDRD) Af Amer 16 mL/min (>60) L 12/11/20 05:21 Est GFR (MDRD) Non-Af 13 mL/min (>60) L 12/11/20 05:21 BUN/Creatinine Ratio 12.5 RATIO (10-20) 12/11/20 05:21 Glucose 97 mg/dL (74-106) 12/11/20 05:21 Assessment/Plan: Psychotropic Medications: Unnecessary Medications: Bowel Regimen: - Provider Comments Provider responsibility: Provider responsible to enter orders to implement recommendations Provider Comments to Recommendations by Pharmacy: Agree
--- NOTE | 2020-12-11 16:07 | CASEMGMT ---
Social Work Met with patient for initial assessment. Discussed code status. Pt wishes to be DNR-CC. Notified nursing. MOLST form reviewed, communication to , placed in chart. Pt reports is HCPOA - not on file. Palliative Screen completed - communication to Explained Medicare benefit. Encouraged to contact secondary to ensure copay coverage. The goal is for pt to return home with with steps in the home and to enter. SW to continue to follow. Grace Harper, MANAGER DELIVERY LINE MAINTENANCE SUPERVISOR
--- NOTE | 2020-12-11 17:50 | NURSING ---
PT STATED HE DID NOT NEED FAMILY CALLED.
[2020-12-11 17:52] VITALS: BP 139/77; PULSE 64
[2020-12-11] MEDS: Atorvastatin Calcium 10 MG Tablet 5 MG PO (20:45)
[2020-12-11 21:00] VITALS: PULSE 88; RESP 16; O2SAT 94
[2020-12-12 05:00] VITALS: BP 146/75; PULSE 74; RESP 16; TEMP 36.9; O2SAT 97
[2020-12-12] MEDS: Menthol/Lanolin/Calamine/Znox 113 GM Tube 1 APPLIC TOPICAL ×2 (05:07→17:10)
[2020-12-12] MEDS: Multivitamin (Healthy Eyes) Capsule 1 CAP PO ×2 (05:07→17:09)
[2020-12-12 05:08] VITALS: BP 146/75; PULSE 74
[2020-12-12] MEDS: levoFLOXacin 250 MG Tablet PO (05:08)
[2020-12-12] MEDS: Losartan Potassium 50 MG Tablet PO (05:08)
[2020-12-12] MEDS: Metoprolol Tartrate 25 MG Tablet PO ×2 (05:08→17:09)
[2020-12-12] MEDS: Multivitamins,Therapeutic Tablet 1 TABLET PO (08:02)
[2020-12-12] MEDS: Aspirin 81 MG TAB.CHEW PO (08:02)
[2020-12-12 10:00] VITALS: PULSE 90; O2SAT 96
[2020-12-12] MEDS: Juven (unflavored) Packet 1 PACKET PO (11:20)
--- NOTE | 2020-12-12 12:46 | NURSING ---
Addendum entered by Kavitha Peralta 12/12/20 13:31: Francisca from Dr. Engle's office called this nurse back and stated Dr. Engle wants a f/u in one month, appointment scheduled for 01/15/21 at 1400, would like weekly labs faxed to office, fax number: [phone]. If pt worsens or we feel the need for pt to see Dr. Engle before appointment to call in and update. BMP and CBC from 12/11/[address] Engle's office. Original Note: Dr. Engle office notified of need for consult, talked with staff member Gisella. Gisella stated she would update Dr. Engle of consult needed for pt on TCU and he should come to the floor for consult but if he would like to see him in the office they would call back and schedule appointment. Dr. Matthew office is closed today but office was called and voicemail left for need of f/u appointment with Dr. Matthew in 1-2 weeks and asked for return call to schedule. Dr. Asifil in today and updated this nurse that losartan is to be placed on hold until further notice.
--- NOTE | 2020-12-12 13:57 | NURSING ---
During assessment dressing to back was coming off, this nurse reinforced dressing and updated RN.
[2020-12-12 15:04] VITALS: BP 139/62; PULSE 65; RESP 14; TEMP 36.8; O2SAT 96
[2020-12-12 17:09] VITALS: PULSE 65
[2020-12-12] MEDS: Senna/Docusate Sodium 1 Tablet PO (17:09)
[2020-12-12] MEDS: Atorvastatin Calcium 10 MG Tablet 5 MG PO (21:10)
[2020-12-13 05:00] VITALS: BP 133/81; PULSE 71; RESP 16; TEMP 36.6; O2SAT 95
[2020-12-13 06:31] VITALS: BP 130/81; PULSE 71
[2020-12-13] MEDS: Senna/Docusate Sodium 1 Tablet PO ×2 (06:31→18:02)
[2020-12-13] MEDS: Metoprolol Tartrate 25 MG Tablet PO ×2 (06:31→18:02)
[2020-12-13] MEDS: Multivitamin (Healthy Eyes) Capsule 1 CAP PO ×2 (06:32→18:02)
[2020-12-13] MEDS: Menthol/Lanolin/Calamine/Znox 113 GM Tube 1 APPLIC TOPICAL ×2 (06:38→18:01)
[2020-12-13] MEDS: Aspirin 81 MG TAB.CHEW PO (08:19)
[2020-12-13] MEDS: Multivitamins,Therapeutic Tablet 1 TABLET PO (09:44)
[2020-12-13] MEDS: Juven (unflavored) Packet 1 PACKET PO ×2 (11:19→18:01)
[2020-12-13 13:59] VITALS: BP 138/65; PULSE 91; RESP 18; TEMP 36.2; O2SAT 97
--- NOTE | 2020-12-13 14:01 | PCM.PN.REN ---
Patient Problems: Active and Suspected Problems (Last Reviewed 12/02/20 @ 11:[address] Aramis Matthew MD) Gross hematuria (Acute) Leukocytosis (Acute) MERLE (acute kidney injury) (Acute) Debility (Acute) Urinary tract infection (Acute) Weakness (Acute) Hypokalemia (Acute) Subjective: no new complaints - Physical Exam Vitals/I&O's: Vital Signs Temp Pulse Resp BP Pulse Ox 97.1 F L 91 18 138/65 H 97 12/13/20 13:59 12/13/20 13:59 12/13/20 13:59 12/13/20 13:59 12/13/20 13:59 Oxygen Delivery Method Room Air Weight: 97.976 kg Body Mass Index (BMI) 30.1 Intake and Output for Last 24 Hours 12/11/20 12/12/20 12/13/20 23:59 23:59 23:59 Intake Total 600 / 600 720 / 720 840 / 840 Output Total 500 / 500 1625 / 1625 1200 / 1200 Balance 100 / 100 -905 / -905 -360 / -360 General: Alert, Oriented x3, Cooperative HEENT: Atraumatic, PERRLA, EOMI, Normocephalic Neck: Supple, No JVD, Negative Carotid Bruits Lungs: Clear to auscultation, Normal air movement Cardiovascular: Regular rate, No murmurs Abdomen: Bowel Sounds Present, Soft, Non Tender Extremities: No edema, Capillary Refill Less than 3 Seconds Skin: No rashes, No breakdown Musculoskeletal: No Tenderness to Palpation of Joints or Extremities Neurological: Cranial nerves II-XII grossly intact Psych/Mental Status: Normal Affect, Appropriate Current Medications Acetaminophen (Acetaminophen 500 Mg Tablet) 1,000 mg PO Q6H PRN PRN PRN Reason: Pain Score 1-10 Aspirin (Aspirin 81 Mg Tab.Chew) 81 mg PO DAILY@0800 [facility] Last Admin: 12/13/20 08:19 Dose: 81 mg Documented by: Atorvastatin Calcium (Atorvastatin Calcium 10 Mg Tablet) 5 mg PO QHS [facility] Last Admin: 12/12/20 21:10 Dose: 5 mg Documented by: Bisacodyl (Bisacodyl 5 Mg Tablet) 10 mg PO DAILY PRN PRN Reason: Constipation Calamine/Phenol (Menthol/Lanolin/Calamine/Znox 113 Gm Tube) 1 applic TOPICAL BID [facility]; Protocol Last Admin: 12/13/20 06:38 Dose: 1 applicatio Documented by: Emollient Ointment (Emollient Combination No.72 500 Ml Lotion) 1 applic TOPICAL HS [facility]; Protocol Last Admin: 12/13/20 06:33 Dose: 1 applicatio Documented by: L-Arginine/L-Glutamine/Calcium HMB (Hao (Unflavored) Packet) 1 packet PO 18 [facility] Last Admin: 12/13/20 11:19 Dose: 1 packet Documented by: Levofloxacin (Levofloxacin 250 Mg Tablet) 250 mg PO Q48@0600 [facility] Stop: 12/20/20 06:01 Last Admin: 12/12/20 05:08 Dose: 250 mg Documented by: Lorazepam (Lorazepam 0.5 Mg Tablet) 0.5 mg PO DAILY PRN PRN PRN Reason: ANXIETY Last Admin: 12/11/20 11:22 Dose: 0.5 mg Documented by: Metoprolol Tartrate (Metoprolol Tartrate 25 Mg Tablet) 25 mg PO BID [facility] Last Admin: 12/13/20 06:31 Dose: 25 mg Documented by: Multivitamins (Multivitamins,Therapeutic Tablet) 1 tablet PO DAILYCM [facility] Last Admin: 12/13/20 09:44 Dose: 1 tablet Documented by: Multivitamins/Minerals (Multivitamin (Healthy Eyes) Capsule) 1 capsule PO BID [facility] Last Admin: 12/13/20 06:32 Dose: 1 capsule Documented by: Ondansetron HCl (Ondansetron 8 Mg Tablet) 8 mg PO Q6H PRN PRN Reason: NAUSEA Polyethylene Glycol (Polyethylene Glycol 3350 17 Gm Packet) 17 gm PO DAILY [facility] Last Admin: 12/13/20 06:34 Dose: Not Given Documented by: Senna/Docusate Sodium (Senna/Docusate Sodium 1 Tablet) 1 tablet PO BID [facility] Last Admin: 12/13/20 06:31 Dose: 1 tablet Documented by: Simethicone (Simethicone 80 Mg Tablet) 80 mg PO TIDPC PRN PRN Reason: GAS/ ABDOMINAL PAIN Tuberculin PPD (Tuberculin,Purif.Prot.Deriv. 50 Tu/Ml Vial) 5 tu ID X1 ONE Stop: 12/18/20 10:01 Medical Necessity - Tobacco Use Smoking Status: Former smoker Tobacco Use: Non-smoker Assessment/Plan All Active Problems (Last Reviewed 12/02/20 @ 11:[address] Aramis Matthew MD) Gross hematuria (Acute) Leukocytosis (Acute) MERLE (acute kidney injury) (Acute) Debility (Acute) Dehydration (Acute) Urinary tract infection (Acute) Weakness (Acute) Hypokalemia (Acute) MERLE CKD 3 baseline creatinine was around 2.0 or so. history of bladder ca, advanced s/p cystectomy and ileal conduit. recent abdomen imaging showed bilateral hydronephrosis. some hydro is expected given lack of bladder. had a left sided stent draining into ileal conduit and right sided percutaneous nephrostomy tube. nephrostomy tube drains more than ileal conduit. cr is lower than before. appetite is fair. no edema med list reviewed. should continue to improve
--- NOTE | 2020-12-13 15:34 | NURSING ---
IN TO SEE PT TODAY. NO NEW ORDERS.
[2020-12-13 18:02] VITALS: BP 138/65; PULSE 91
[2020-12-13] MEDS: Atorvastatin Calcium 10 MG Tablet 5 MG PO (20:44)
[2020-12-13 23:01] VITALS: PULSE 60; RESP 18; O2SAT 97
[2020-12-14 05:00] VITALS: BP 110/50; PULSE 60; RESP 18; TEMP 37; O2SAT 97
[2020-12-14 06:01] VITALS: PULSE 60
[2020-12-14] MEDS: Multivitamin (Healthy Eyes) Capsule 1 CAP PO ×2 (06:01→17:17)
[2020-12-14] MEDS: levoFLOXacin 250 MG Tablet PO (06:01)
[2020-12-14] MEDS: Senna/Docusate Sodium 1 Tablet PO (06:01)
[2020-12-14] MEDS: Metoprolol Tartrate 25 MG Tablet PO ×2 (06:01→17:17)
[2020-12-14] MEDS: Menthol/Lanolin/Calamine/Znox 113 GM Tube 1 APPLIC TOPICAL ×2 (06:02→17:18)
[2020-12-14] MEDS: Aspirin 81 MG TAB.CHEW PO (08:07)
[2020-12-14] MEDS: Multivitamins,Therapeutic Tablet 1 TABLET PO (08:07)
[2020-12-14 09:35] VITALS: PULSE 62; O2SAT 90
[2020-12-14 13:50] VITALS: BP 134/64; PULSE 64; RESP 16; TEMP 36.1; O2SAT 97
--- NOTE | 2020-12-14 14:14 | NURSING ---
Urostomy appliance changed. peristomal skin remains intact. peristomal skin cleansed with warm water. pat dry. applied a new flat 1 piece Aurelio appliance. pt tolerated well. the dressing the right nephrostomy tube remains in place. very small amount of old dry drainage noted. pt denies discomfort at this time.
[2020-12-14 17:17] VITALS: PULSE 64
[2020-12-14] MEDS: Juven (unflavored) Packet 1 PACKET PO (17:17)
[2020-12-14] MEDS: Atorvastatin Calcium 10 MG Tablet 5 MG PO (21:54)
[2020-12-15 05:00] VITALS: BP 128/74; PULSE 86; RESP 18; TEMP 36.7; O2SAT 97
[2020-12-15] MEDS: Menthol/Lanolin/Calamine/Znox 113 GM Tube 1 APPLIC TOPICAL ×2 (05:23→17:09)
[2020-12-15 05:24] VITALS: BP 128/74; PULSE 86
[2020-12-15] MEDS: Metoprolol Tartrate 25 MG Tablet PO ×2 (05:24→17:05)
[2020-12-15] MEDS: Senna/Docusate Sodium 1 Tablet PO (05:24)
[2020-12-15] MEDS: Multivitamin (Healthy Eyes) Capsule 1 CAP PO ×2 (05:27→17:09)
[2020-12-15] MEDS: Polyethylene Glycol 3350 17 GM PACKET PO (05:30)
[2020-12-15] MEDS: Aspirin 81 MG TAB.CHEW PO (08:48)
[2020-12-15] MEDS: Multivitamins,Therapeutic Tablet 1 TABLET PO (08:49)
[2020-12-15 15:30] VITALS: BP 124/61; RESP 20; TEMP 36.3; O2SAT 97
--- NOTE | 2020-12-15 15:52 | NURSING ---
pt stated he updates family
[2020-12-15] MEDS: Juven (unflavored) Packet 1 PACKET PO (17:04)
[2020-12-15 17:05] VITALS: BP 124/61; PULSE 79
[2020-12-15] MEDS: Atorvastatin Calcium 10 MG Tablet 5 MG PO (20:35)
[2020-12-16 05:00] VITALS: BP 133/66; PULSE 43; RESP 18; TEMP 36.6; O2SAT 96
[2020-12-16 05:23] VITALS: BP 133/66; PULSE 43
[2020-12-16] MEDS: Menthol/Lanolin/Calamine/Znox 113 GM Tube 1 APPLIC TOPICAL ×2 (05:23→17:59)
[2020-12-16] MEDS: levoFLOXacin 250 MG Tablet PO (05:23)
[2020-12-16] MEDS: Metoprolol Tartrate 25 MG Tablet PO ×2 (05:23→18:00)
[2020-12-16] MEDS: Multivitamin (Healthy Eyes) Capsule 1 CAP PO ×2 (05:23→18:00)
[2020-12-16] MEDS: Multivitamins,Therapeutic Tablet 1 TABLET PO (08:21)
[2020-12-16] MEDS: Aspirin 81 MG TAB.CHEW PO (08:21)
[2020-12-16 08:45] VITALS: PULSE 73; RESP 18; O2SAT 96
[2020-12-16 14:19] VITALS: BP 102/61; PULSE 60; RESP 14; TEMP 36.1; O2SAT 99
--- NOTE | 2020-12-16 14:54 | NURSING ---
pt stated he updates family
[2020-12-16] MEDS: Juven (unflavored) Packet 1 PACKET PO (17:59)
[2020-12-16 18:00] VITALS: BP 102/61; PULSE 60
[2020-12-16] MEDS: Senna/Docusate Sodium 1 Tablet PO (18:01)
[2020-12-16] MEDS: Atorvastatin Calcium 10 MG Tablet 5 MG PO (20:43)
[2020-12-17 05:00] VITALS: BP 137/83; PULSE 56; RESP 18; TEMP 36.6; O2SAT 98
[2020-12-17 05:55] VITALS: BP 137/83; PULSE 56
[2020-12-17] MEDS: Menthol/Lanolin/Calamine/Znox 113 GM Tube 1 APPLIC TOPICAL ×2 (05:55→17:11)
[2020-12-17] MEDS: Metoprolol Tartrate 25 MG Tablet PO ×2 (05:55→17:11)
[2020-12-17] MEDS: Multivitamin (Healthy Eyes) Capsule 1 CAP PO ×2 (05:55→17:10)
[2020-12-17] MEDS: Aspirin 81 MG TAB.CHEW PO (08:04)
[2020-12-17] MEDS: Multivitamins,Therapeutic Tablet 1 TABLET PO (08:04)
[2020-12-17 13:54] VITALS: BP 89/44; PULSE 60; RESP 14; TEMP 36.2; O2SAT 96
[2020-12-17 14:53] VITALS: BP 106/63; PULSE 83
--- NOTE | 2020-12-17 14:56 | NURSING ---
BP 89/44, encouraged fluids and rechecked BP, BP increased to 106/63, RN updated
--- NOTE | 2020-12-17 17:04 | CON.PCM_ITS ---
Problem List (1) Bladder cancer Status: Chronic Qualifiers: (2) Anxiety Status: Chronic (3) Gross hematuria Status: Acute (4) Debility Status: Acute (5) Bladder tumor Status: Chronic (6) Leukocytosis Status: Acute Qualifiers: (7) MERLE (acute kidney injury) Status: Acute (8) Dehydration Status: Acute (9) Urinary tract infection Status: Acute (10) Weakness Status: Acute (11) Hypokalemia Status: Acute (12) Hypertension Status: Chronic (13) Hyperlipidemia Status: Chronic (14) Appetite loss Status: Chronic History of Present Illness Date of Consult: 12/17/20 Reason for Consult: palliative for symptom management for cancer diagnosis Requesting physician: [] Primary care physician: Dr. Kim Torres MD - History of Present Illness The patient is a 80 year old M with history of bladder ca and advanced s/p cystectomy who was referred to [facility] for symptom management related to cancer diagnosis and anxiety. Extensive list of medical diagnoses listed above. On December 02, 2020, patient presented to the [facility] emergency department with weakness. EKG showed sinus rhythm with immature supraventricular contractions, frequent premature ventricular contractions left axis deviation, septal infarct. Chest x-ray was negative. Renal ultrasound showed stable bilateral moderate hydronephrosis. Patient has bladder cancer with a recent TURP, TURPT, ileal conduit. Exhibited diarrhea weakness and inability to stand. White blood count was 29.1, BUN 78, creatinine 6.8. Given normal saline 500 cc IV bolus admitted to the hospital. He was given IV fluids for acute kidney injury and PT/OT for debility. Leukocytosis was concerning for chronic leukemia. On 12/05, urology performed flexible sigmoidoscopy via ileal conduit Duet removal of old stent loopogram and placement of stent left side. On the , IR placed right nephrostomy tube, creatinine improved to 4.9. More IV fluids given. White blood count improved to 12.3 with hypokalemia resolved. ID noted MSSA Pseudomonas in the urine. Bactrim was stopped and treated with Levaquin for 10 days, then was transferred to TCU for rehab. Goal is to discharge home with his . He was seen today in his room alert and oriented x4. Patient recalls that he fell 3 times before admission to the hospital. States, my legs just gave out on me due to issues with my kidneys. Palliative services explained and questions answered. Reported that he was supposed to have his oncology visit, but ended up in the hospital instead. Appears fatigued but able to answer questions appropriately. Denies any pain, chest pain, shortness of breath, nausea, vomiting or constipation. When asked if he would like Palliative to follow after discharge, was unsure. Attempted to call and unable to reach per phone at this time. Patient Problems: Chronic Problems (Last Reviewed 12/02/20 @ 11:[address] Aramis Matthew MD) Bladder tumor (Chronic) Bladder cancer (Chronic) Hypertension (Chronic) Hyperlipidemia (Chronic) Anxiety (Chronic) Appetite loss (Chronic) Surgical History: TURP, - - TURBT, Ileal conduit, right nephrostomy tube. Psychiatric History: No pertinent psych hx Home Medications: Ambulatory Orders Medication Instructions Recorded Losartan Potassium [Cozaar] 50 mg PO DAILY 05/01/16 Simvastatin [Zocor] 10 mg PO QHS 05/01/16 Aspirin [Aspirin, Baby] 81 mg PO DAILY@0800 05/01/19 Multivitamin [Daily Value] 1 ea PO DAILY 12/11/19 Vit C/E/Zn/Coppr/Lutein/Zeaxan 1 ea PO BID 12/11/19 [Preservision Areds 2 Softgel] Lorazepam [Ativan] 0.5 mg PO DAILY PRN PRN 11/30/20 Ondansetron [Ondansetron Odt] 8 mg PO Q6H PRN 11/30/20 Acetaminophen [Tylenol Tablet] 650 mg PO Q6H PRN PRN tab 12/10/20 Menthol/Lanolin/Calamine/Znox 1 applic TOPICAL BID 12/10/20 [Calmoseptine Ointment] Metoprolol Tartrate [Lopressor 25 mg PO BID 12/10/20 (beta neetu)] SimETHICONE [Mylicon] 80 mg PO TIDPC PRN tab 12/10/20 levoFLOXacin tablet [Levaquin 250 mg PO Q48@0600 12/10/20 tablet] Allergies atenolol Adverse Reaction (Verified 12/01/20 12:20) hypotension HYPOTENSION tamsulosin [From Flomax] Adverse Reaction (Verified 12/01/20 12:20) PT UNSURE OF REACTION passed out Maternal History Items: No pertinent history Paternal History Items: No pertinent history - Social History Lives: Spouse/ Significant Other Smoking Status: Former smoker Tobacco Use: Non-smoker Alcohol: None Drugs: None Code Status: [facility] Review of Systems Constitutional: Reports: Weakness. Denies: Anorexia, Chills, Fever, Malaise Eyes: Denies: Pain HEENT: Denies: Difficulty Hearing, Difficulty Swallowing Cardiovascular: Denies: Chest Pain, Chest Pressure, Palpitations Respiratory: Denies: Cough, Shortness of Breath Gastrointestinal: Denies: Abdominal Pain, Constipation, Nausea, Vomiting Genitourinary: Reports: - - urostomy and nephrostomy Musculoskeletal: Denies: Arm Pain, Back Pain, Joint Tenderness Neurological: Denies: Confusion, Headaches Psychiatric: Denies: Anxiety Physical Exam General: Alert, Oriented x3, Cooperative, No apparent distress, Well developed, Well nourished HEENT: Atraumatic, EOMI, Normocephalic Oral: Moist Mucosa Neck: Supple, No JVD, No Nodes Lungs: Clear to auscultation, Normal air movement Cardiovascular: Regular rate, Regular Rhythm, Normal S1, Normal S2 Abdomen: Bowel Sounds Present, Soft, Non Tender, Non-Distended Extremities: No cyanosis, No edema, Edema - trace edema. Bilateral legs wrapped with ZAKI wraps Skin: No rashes, No breakdown Neurological: Cranial nerves II-XII grossly intact Psych/Mental Status: Normal Affect, Appropriate, Alert and oriented to time, place, person, mood and affect Objective: Vital Signs Temp Pulse Resp BP Pulse Ox 97.2 F L 83 14 106/63 96 12/17/20 13:54 12/17/20 14:53 12/17/20 13:54 12/17/20 14:53 12/17/20 13:54 Oxygen Delivery Method Room Air Weight: 97.976 kg Body Mass Index (BMI) 30.1 Intake and Output for Last 24 Hours 12/15/20 12/16/20 12/17/20 23:59 23:59 23:59 Intake Total 960 / 960 960 / 960 1140 / 1140 Output Total 500 / 500 1350 / 1350 1300 / 1300 Balance 460 / 460 -390 / -390 -160 / -160 Assessment/Plan All Active Problems (Last Reviewed 12/02/20 @ 11:[address] Aramis Matthew MD) Gross hematuria (Acute) Leukocytosis (Acute) MERLE (acute kidney injury) (Acute) Debility (Acute) Dehydration (Acute) Urinary tract infection (Acute) Weakness (Acute) Hypokalemia (Acute) Gallito Nam is a 80-year-old male who was referred to [facility] for symptom management related to Bladder ca, debility and anxiety. He is currently receiving PT/OT on the TCU unit at [facility]. Attempted to reach by phone to discuss palliative services but unable to do so. Patient is unsure at this time if services will be needed. Plan is as follows: 1) Bladder Ca: Patient unsure if he will be receiving treatments. Palliative willing to provide symptom support during treatment as needed. 2) Anxiety: Denies anxiety at this time. Patient is currently using PRN Ativan due to anxiety and stress related to his hospitalization and diagnosis. Palliative is willing to continue to follow and provide medication relief and emotional support at discharge. 3) Debility: Continue PT/OT 4) Chronic conditions: Follow PCP, Urology and nephrology. Palliative to call patient on discharge to decide if Palliative is to continue to provide services at home. Thank you for the opportunity to serve your patients! [facility] Team [phone]
[2020-12-17] MEDS: Juven (unflavored) Packet 1 PACKET PO (17:10)
[2020-12-17 17:11] VITALS: PULSE 83
[2020-12-17] MEDS: Atorvastatin Calcium 10 MG Tablet 5 MG PO (21:42)
[2020-12-17 21:49] VITALS: PULSE 92; RESP 16; O2SAT 95
[2020-12-18 05:00] VITALS: BP 123/66; PULSE 60; RESP 16; TEMP 36.7; O2SAT 97
[2020-12-18 05:50] LABS: Absolute Lymphocyte Count 2.07 X10^3/uL (0.83-4.51); Absolute Neutrophil Count 5.7 X10^3/uL (2.0-7.7); Basophil# 0.06 X10^3/uL; Basophil% 0.6 % (0-1); Eosinophil# 0.09 X10^3/uL; Eosinophils% 0.8 % (0-5); Hematocrit 26.3 % (40-54); Hemoglobin 7.5 g/dL (13.0-16.5); Lymphocyte # 2.07 X10^3/ul (4.0); Lymphocyte % 19.5 % (19-41); Mean Corp Hgb Conc 28.5 g/dL (32-36); Mean Corpuscular Hgb 23.7 pg (27.0-32.0); Mean Corpuscular Volume 83.2 fL (80-94); Mean Platelet Vol. 11.8 fl (6.2-12.0); Monocyte# 2.59 X10^3/uL; Monocyte% 24.5 % (0-10); NRBC Flagged by Analyzer 0 % (0-5); Neutrophil # 5.65 X10^3/uL (2.7-7.7); Neutrophil % 53.4 % (47-70); POSITIVE DIFFERENTIAL YES; Platelet Count 175 K/mm3 (150-450); RBC Distribution Width CV 19.1 % (11.6-14.6); RBC Distribution Width SD 57.7 fl (35.1-43.9); Red Blood Count 3.16 M/mm3 (4.6-6.2); White Blood Count 10.6 K/mm3 (4.4-11.0)
[2020-12-18 06:06] LABS: Differential Indicated SCAN CRITERIA MET
[2020-12-18 06:18] VITALS: BP 123/66; PULSE 60
[2020-12-18] MEDS: Multivitamin (Healthy Eyes) Capsule 1 CAP PO ×2 (06:18→16:57)
[2020-12-18] MEDS: Metoprolol Tartrate 25 MG Tablet PO ×2 (06:18→16:58)
[2020-12-18] MEDS: levoFLOXacin 250 MG Tablet PO (06:18)
[2020-12-18] MEDS: Senna/Docusate Sodium 1 Tablet PO (06:19)
[2020-12-18] MEDS: Menthol/Lanolin/Calamine/Znox 113 GM Tube 1 APPLIC TOPICAL ×2 (06:21→16:58)
[2020-12-18 06:25] LABS: Anion Gap 6 (5-15); BUN 64 mg/dL (7-18); BUN/Creat Ratio 17.5 RATIO (10-20); Calcium,Total 8.6 mg/dL (8.5-10.1); Chloride 110 mmol/L (98-107); Creatinine, Serum 3.65 mg/dL (0.70-1.30); EST Glomerular Filtration Rate 17 mL/min (>60); Est Glom Filt Rate - Afr Amer 21 mL/min (>60); Estimated Creatinine Clearance 16.91 ml/min; Glucose 97 mg/dL (74-106); Potassium 4.4 mmol/L (3.5-5.1); Sodium Level 142 mmol/L (136-145)
[2020-12-18] MEDS: Multivitamins,Therapeutic Tablet 1 TABLET PO (08:22)
[2020-12-18] MEDS: Aspirin 81 MG TAB.CHEW PO (08:22)
[2020-12-18] MEDS: Tuberculin,Purif.prot.deriv. 50 TU/ML Vial 5 ML ID (09:52)
[2020-12-18] MEDS: Juven (unflavored) Packet 1 PACKET PO (11:30)
[2020-12-18 14:23] VITALS: BP 129/68; PULSE 69; RESP 16; TEMP 36.3; O2SAT 93
[2020-12-18 16:58] VITALS: PULSE 70
[2020-12-18] MEDS: Atorvastatin Calcium 10 MG Tablet 5 MG PO (20:41)
[2020-12-19 06:01] LABS: Absolute Lymphocyte Count 2.04 X10^3/uL (0.83-4.51); Absolute Neutrophil Count 4.8 X10^3/uL (2.0-7.7); Basophil# 0.07 X10^3/uL; Basophil% 0.7 % (0-1); Eosinophil# 0.09 X10^3/uL; Eosinophils% 0.9 % (0-5); Hematocrit 26.2 % (40-54); Hemoglobin 7.5 g/dL (13.0-16.5); Lymphocyte # 2.04 X10^3/ul (4.0); Lymphocyte % 20.6 % (19-41); Mean Corp Hgb Conc 28.6 g/dL (32-36); Mean Platelet Vol. 11.2 fl (6.2-12.0); Monocyte# 2.76 X10^3/uL; Monocyte% 27.9 % (0-10); NRBC Flagged by Analyzer 0 % (0-5); Neutrophil # 4.82 X10^3/uL (2.7-7.7); Neutrophil % 48.7 % (47-70); POSITIVE DIFFERENTIAL YES; Platelet Count 165 K/mm3 (150-450); RBC Distribution Width CV 19.2 % (11.6-14.6); RBC Distribution Width SD 59.2 fl (35.1-43.9); Red Blood Count 3.12 M/mm3 (4.6-6.2); White Blood Count 9.9 K/mm3 (4.4-11.0)
[2020-12-19 06:03] LABS: Differential Indicated SCAN CRITERIA MET
[2020-12-19 06:32] LABS: BUN 62 mg/dL (7-18); Creatinine, Serum 3.55 mg/dL (0.70-1.30); Glucose 90 mg/dL (74-106)
[2020-12-19 06:33] LABS: Anion Gap 7 (5-15); BUN/Creat Ratio 17.5 RATIO (10-20); Calcium,Total 8.6 mg/dL (8.5-10.1); Chloride 108 mmol/L (98-107); EST Glomerular Filtration Rate 18 mL/min (>60); Est Glom Filt Rate - Afr Amer 21 mL/min (>60); Estimated Creatinine Clearance 17.38 ml/min; Potassium 4.3 mmol/L (3.5-5.1); Sodium Level 141 mmol/L (136-145)
[2020-12-19 06:38] VITALS: BP 131/45; PULSE 78
[2020-12-19] MEDS: Multivitamin (Healthy Eyes) Capsule 1 CAP PO ×2 (06:38→17:02)
[2020-12-19] MEDS: Metoprolol Tartrate 25 MG Tablet PO ×2 (06:38→17:02)
[2020-12-19] MEDS: Menthol/Lanolin/Calamine/Znox 113 GM Tube 1 APPLIC TOPICAL ×2 (06:40→17:03)
--- NOTE | 2020-12-19 07:33 | NURSING ---
Weekly labs faxed to Kadie's office.
[2020-12-19] MEDS: Multivitamins,Therapeutic Tablet 1 TABLET PO (07:55)
[2020-12-19] MEDS: Aspirin 81 MG TAB.CHEW PO (07:55)
--- NOTE | 2020-12-19 08:53 | NURSING ---
Urostomy system changed today. periskin red but intact, no current new concerns, pt tolerated well
[2020-12-19 14:07] VITALS: BP 103/59; PULSE 92; RESP 14; TEMP 36.3; O2SAT 94
--- NOTE | 2020-12-19 15:49 | CASEMGMT ---
Social Work IDT met with patient and via conference call for care plan meeting. Discussed patient's progress in therapy and nursing. Pt progressing well. Pt is out of room isolation 12/24. PT to work further on steps for safe return home. Explained Medicare benefit and encouraged to contact secondary insurance for copay coverage. The goal is for pt to return home with at [facility]. Will continue to follow. TOMAS PostW
[2020-12-19 17:02] VITALS: PULSE 92
[2020-12-19] MEDS: Atorvastatin Calcium 10 MG Tablet 5 MG PO (21:59)
[2020-12-20] VITALS (8 sets, daily range): BP systolic 117–128; BP diastolic 54–68; PULSE 50–76; RESP 16–18; TEMP 36.3–36.9; O2SAT 92–98
[2020-12-20] MEDS: levoFLOXacin 250 MG Tablet PO (05:36)
[2020-12-20] MEDS: Multivitamin (Healthy Eyes) Capsule 1 CAP PO ×2 (05:37→17:32)
[2020-12-20] MEDS: Menthol/Lanolin/Calamine/Znox 113 GM Tube 1 APPLIC TOPICAL ×2 (05:37→17:29)
[2020-12-20 05:55] LABS: Absolute Lymphocyte Count 1.92 X10^3/uL (0.83-4.51); Absolute Neutrophil Count 4.8 X10^3/uL (2.0-7.7); Basophil# 0.08 X10^3/uL; Basophil% 0.8 % (0-1); Eosinophil# 0.11 X10^3/uL; Eosinophils% 1.1 % (0-5); Hematocrit 26.4 % (40-54); Hemoglobin 7.6 g/dL (13.0-16.5); Lymphocyte # 1.92 X10^3/ul (4.0); Lymphocyte % 19.5 % (19-41); Mean Corp Hgb Conc 28.8 g/dL (32-36); Mean Corpuscular Hgb 24.1 pg (27.0-32.0); Mean Corpuscular Volume 83.5 fL (80-94); Mean Platelet Vol. 11.9 fl (6.2-12.0); Monocyte# 2.83 X10^3/uL; Monocyte% 28.7 % (0-10); NRBC Flagged by Analyzer 0 % (0-5); Neutrophil # 4.83 X10^3/uL (2.7-7.7); Neutrophil % 49.1 % (47-70); POSITIVE DIFFERENTIAL YES; Platelet Count 163 K/mm3 (150-450); RBC Distribution Width CV 19.2 % (11.6-14.6); RBC Distribution Width SD 58.4 fl (35.1-43.9); Red Blood Count 3.16 M/mm3 (4.6-6.2); White Blood Count 9.9 K/mm3 (4.4-11.0)
[2020-12-20 06:00] LABS: Differential Indicated SCAN CRITERIA MET
[2020-12-20 06:24] LABS: Anion Gap 7 (5-15); BUN 64 mg/dL (7-18); BUN/Creat Ratio 17.9 RATIO (10-20); Calcium,Total 8.4 mg/dL (8.5-10.1); Chloride 107 mmol/L (98-107); Creatinine, Serum 3.58 mg/dL (0.70-1.30); EST Glomerular Filtration Rate 18 mL/min (>60); Est Glom Filt Rate - Afr Amer 21 mL/min (>60); Estimated Creatinine Clearance 17.24 ml/min; Glucose 97 mg/dL (74-106); Sodium Level 141 mmol/L (136-145)
[2020-12-20] MEDS: Multivitamins,Therapeutic Tablet 1 TABLET PO (08:26)
[2020-12-20] MEDS: Aspirin 81 MG TAB.CHEW PO (08:27)
[2020-12-20] MEDS: Metoprolol Tartrate 25 MG Tablet PO ×2 (08:29→17:32)
--- NOTE | 2020-12-20 14:29 | MDS.RN ---
Information for the mds was obtained from review of the clinical record, interview of resident, staff, and direct observation of resident's care.
--- NOTE | 2020-12-20 15:49 | NURSING ---
Left message for Dr. Matthew's office asking if dressing to right nephrostomy could be changed. Waiting for return call.
[2020-12-20] MEDS: Atorvastatin Calcium 10 MG Tablet 5 MG PO (21:15)
[2020-12-21 05:00] VITALS: BP 114/68; PULSE 63; RESP 16; TEMP 36.6; O2SAT 97
[2020-12-21 05:44] LABS: Absolute Lymphocyte Count 1.89 X10^3/uL (0.83-4.51); Basophil# 0.06 X10^3/uL; Basophil% 0.7 % (0-1); Eosinophils% 1.2 % (0-5); Hematocrit 24.5 % (40-54); Hemoglobin 7.1 g/dL (13.0-16.5); Lymphocyte # 1.89 X10^3/ul (4.0); Lymphocyte % 22.7 % (19-41); Mean Corpuscular Hgb 24.1 pg (27.0-32.0); Mean Corpuscular Volume 83.3 fL (80-94); Mean Platelet Vol. 11.3 fl (6.2-12.0); Monocyte# 2.19 X10^3/uL; Monocyte% 26.4 % (0-10); NRBC Flagged by Analyzer 0 % (0-5); Neutrophil # 3.98 X10^3/uL (2.7-7.7); Neutrophil % 47.9 % (47-70); POSITIVE DIFFERENTIAL YES; Platelet Count 147 K/mm3 (150-450); RBC Distribution Width CV 19.2 % (11.6-14.6); RBC Distribution Width SD 57.7 fl (35.1-43.9); Red Blood Count 2.94 M/mm3 (4.6-6.2); White Blood Count 8.3 K/mm3 (4.4-11.0)
[2020-12-21 05:47] LABS: Differential Indicated SCAN CRITERIA MET
[2020-12-21 05:58] VITALS: BP 114/68; PULSE 63
[2020-12-21] MEDS: Senna/Docusate Sodium 1 Tablet PO (05:58)
[2020-12-21] MEDS: Metoprolol Tartrate 25 MG Tablet PO ×2 (05:58→18:14)
[2020-12-21] MEDS: Multivitamin (Healthy Eyes) Capsule 1 CAP PO ×2 (05:58→18:14)
[2020-12-21 06:01] LABS: Anion Gap 7 (5-15); BUN 62 mg/dL (7-18); BUN/Creat Ratio 16.9 RATIO (10-20); Calcium,Total 8.7 mg/dL (8.5-10.1); Chloride 107 mmol/L (98-107); Creatinine, Serum 3.67 mg/dL (0.70-1.30); EST Glomerular Filtration Rate 17 mL/min (>60); Est Glom Filt Rate - Afr Amer 21 mL/min (>60); Estimated Creatinine Clearance 16.81 ml/min; Glucose 88 mg/dL (74-106); Sodium Level 139 mmol/L (136-145)
[2020-12-21] MEDS: Menthol/Lanolin/Calamine/Znox 113 GM Tube 1 APPLIC TOPICAL ×2 (06:04→18:15)
[2020-12-21] MEDS: Multivitamins,Therapeutic Tablet 1 TABLET PO (08:54)
[2020-12-21] MEDS: Aspirin 81 MG TAB.CHEW PO (08:54)
[2020-12-21] MEDS: Iron Polysaccharide Complex 150 MG CAPSULE PO (08:58)
[2020-12-21 13:32] VITALS: BP 126/70; PULSE 76; RESP 18; TEMP 36.1; O2SAT 98
--- NOTE | 2020-12-21 15:00 | NURSING ---
PT OSTOMY WAS CHANGED TODAY. STOMA BEEFY RED. SKIN IN TACKED.
--- NOTE | 2020-12-21 16:06 | NURSING ---
pt stated he would update his family.
--- NOTE | 2020-12-21 16:26 | NURSING ---
attempted insertion of saline lock w/out success x2.
[2020-12-21 18:14] VITALS: BP 126/70; PULSE 76
[2020-12-21] MEDS: Atorvastatin Calcium 10 MG Tablet 5 MG PO (22:02)
[2020-12-22 04:59] VITALS: BP 103/39; PULSE 48; RESP 16; TEMP 36.3; O2SAT 97
[2020-12-22 05:02] VITALS: BP 103/39; PULSE 48
[2020-12-22] MEDS: Multivitamin (Healthy Eyes) Capsule 1 CAP PO ×2 (05:02→17:14)
[2020-12-22] MEDS: Senna/Docusate Sodium 1 Tablet PO (05:02)
[2020-12-22] MEDS: Menthol/Lanolin/Calamine/Znox 113 GM Tube 1 APPLIC TOPICAL ×2 (05:03→17:16)
[2020-12-22 07:16] LABS: Absolute Lymphocyte Count 1.66 X10^3/uL (0.83-4.51); Absolute Neutrophil Count 3.3 X10^3/uL (2.0-7.7); Basophil# 0.06 X10^3/uL; Basophil% 0.9 % (0-1); Eosinophil# 0.11 X10^3/uL; Eosinophils% 1.6 % (0-5); Hematocrit 25.5 % (40-54); Hemoglobin 7.6 g/dL (13.0-16.5); Lymphocyte # 1.66 X10^3/ul (4.0); Lymphocyte % 23.6 % (19-41); Mean Corp Hgb Conc 29.8 g/dL (32-36); Mean Corpuscular Hgb 24.6 pg (27.0-32.0); Mean Corpuscular Volume 82.5 fL (80-94); Mean Platelet Vol. 10.8 fl (6.2-12.0); Monocyte# 1.82 X10^3/uL; Monocyte% 25.9 % (0-10); NRBC Flagged by Analyzer 0 % (0-5); Neutrophil # 3.32 X10^3/uL (2.7-7.7); POSITIVE DIFFERENTIAL YES; Platelet Count 163 K/mm3 (150-450); RBC Distribution Width CV 19.2 % (11.6-14.6); RBC Distribution Width SD 58.1 fl (35.1-43.9); Red Blood Count 3.09 M/mm3 (4.6-6.2)
[2020-12-22 07:26] LABS: Differential Indicated SCAN CRITERIA MET
[2020-12-22 07:36] LABS: Anion Gap 8 (5-15); BUN 58 mg/dL (7-18); BUN/Creat Ratio 15.8 RATIO (10-20); Calcium,Total 8.7 mg/dL (8.5-10.1); Chloride 108 mmol/L (98-107); Creatinine, Serum 3.67 mg/dL (0.70-1.30); EST Glomerular Filtration Rate 17 mL/min (>60); Est Glom Filt Rate - Afr Amer 21 mL/min (>60); Estimated Creatinine Clearance 16.81 ml/min; Glucose 90 mg/dL (74-106); Sodium Level 141 mmol/L (136-145)
[2020-12-22 07:46] LABS: Hypochromasia 2+; Platelet Estimate A (ADEQ)
[2020-12-22] MEDS: Iron Polysaccharide Complex 150 MG CAPSULE PO (08:04)
[2020-12-22] MEDS: Multivitamins,Therapeutic Tablet 1 TABLET PO (08:04)
[2020-12-22] MEDS: Aspirin 81 MG TAB.CHEW PO (08:04)
--- NOTE | 2020-12-22 09:30 | NURSING ---
Pt off floor went for blood transfusion on [facility].
[2020-12-22 16:00] VITALS: BP 132/44; PULSE 51; RESP 16; TEMP 36.7; O2SAT 97
--- NOTE | 2020-12-22 16:53 | NURSING ---
Pt returned from [facility] post blood transfusion denies any new s/s at this time.
[2020-12-22] MEDS: Atorvastatin Calcium 10 MG Tablet 5 MG PO (20:18)
--- NOTE | 2020-12-22 20:24 | NURSING ---
Patient's ostomy leaking. One piece Appliance removed. Skin cleaned with warm water and soap. Pat dry. Periskin intact without redness. New two piece appliance applied Patient tolerated well.
[2020-12-23 05:00] VITALS: BP 128/70; PULSE 60; RESP 18; TEMP 36.9; O2SAT 98
[2020-12-23 06:21] LABS: Hematocrit 32.4 % (40-54); Hemoglobin 9.8 g/dL (13.0-16.5)
[2020-12-23 07:03] VITALS: PULSE 60
[2020-12-23] MEDS: Senna/Docusate Sodium 1 Tablet PO ×2 (07:03→17:27)
[2020-12-23] MEDS: Iron Polysaccharide Complex 150 MG CAPSULE PO (07:03)
[2020-12-23] MEDS: Metoprolol Tartrate 25 MG Tablet PO ×2 (07:03→17:26)
[2020-12-23] MEDS: Multivitamin (Healthy Eyes) Capsule 1 CAP PO ×2 (07:03→17:26)
[2020-12-23] MEDS: Aspirin 81 MG TAB.CHEW PO (07:03)
[2020-12-23] MEDS: Multivitamins,Therapeutic Tablet 1 TABLET PO (07:03)
[2020-12-23] MEDS: Menthol/Lanolin/Calamine/Znox 113 GM Tube 1 APPLIC TOPICAL ×2 (07:07→17:27)
[2020-12-23 10:00] VITALS: PULSE 58; O2SAT 97
[2020-12-23 13:25] VITALS: BP 123/59; PULSE 59; RESP 16; TEMP 36.4; O2SAT 97
[2020-12-23 17:26] VITALS: PULSE 59
[2020-12-23] MEDS: Acetaminophen 500 MG Tablet 1000 MG PO (20:36)
[2020-12-23] MEDS: Atorvastatin Calcium 10 MG Tablet 5 MG PO (20:37)
[2020-12-24 05:00] VITALS: BP 131/60; PULSE 57; RESP 16; TEMP 36.1; O2SAT 97
[2020-12-24] MEDS: Multivitamin (Healthy Eyes) Capsule 1 CAP PO ×2 (05:51→17:59)
[2020-12-24] MEDS: Senna/Docusate Sodium 1 Tablet PO ×2 (05:51→17:59)
[2020-12-24 05:56] VITALS: PULSE 57
[2020-12-24] MEDS: Polyethylene Glycol 3350 17 GM PACKET PO (05:56)
[2020-12-24] MEDS: Metoprolol Tartrate 25 MG Tablet PO ×2 (05:56→18:02)
[2020-12-24] MEDS: Menthol/Lanolin/Calamine/Znox 113 GM Tube 1 APPLIC TOPICAL ×2 (05:57→17:58)
[2020-12-24] MEDS: Aspirin 81 MG TAB.CHEW PO (07:56)
[2020-12-24] MEDS: Iron Polysaccharide Complex 150 MG CAPSULE PO (07:56)
[2020-12-24] MEDS: Multivitamins,Therapeutic Tablet 1 TABLET PO (07:56)
[2020-12-24 10:30] VITALS: PULSE 54; RESP 18; O2SAT 94
--- NOTE | 2020-12-24 11:51 | PCM.PN.REN ---
Patient Problems: Active and Suspected Problems (Last Reviewed 12/02/20 @ 11:[address] Aramis Matthew MD) Gross hematuria (Acute) Leukocytosis (Acute) MERLE (acute kidney injury) (Acute) Debility (Acute) Dehydration (Acute) Urinary tract infection (Acute) Weakness (Acute) Hypokalemia (Acute) Subjective: no nausea No vomiting No SOB - Physical Exam Vitals/I&O's: Vital Signs Temp Pulse Resp BP Pulse Ox 97.0 F L 57 L 16 131/60 H 97 12/24/20 05:00 12/24/20 05:56 12/24/20 05:00 12/24/20 05:00 12/24/20 05:00 Oxygen Delivery Method Room Air Weight: 106.282 kg Body Mass Index (BMI) 30.1 Intake and Output for Last 24 Hours 12/22/20 12/23/20 12/24/20 22:59 23:59 23:59 Intake Total 360 / 360 Output Total 1400 / 1400 Balance -1040 / -1040 General: Alert, Oriented x3 HEENT: Atraumatic Oral: Moist Mucosa Neck: Supple, No JVD Lungs: Clear to auscultation, Normal air movement, No rhonchi, No wheeze Cardiovascular: Regular rate, Regular Rhythm, Normal S1, Normal S2 Abdomen: Bowel Sounds Present, Soft, Non Tender Extremities: No clubbing, No cyanosis, Edema - +1 EDEMA OF LE Skin: No rashes Musculoskeletal: No Tenderness to Palpation of Joints or Extremities Lymphatic: No Cervical, Supraclavicular, or Inguinal Adenopathy Neurological: Cranial nerves II-XII grossly intact, Neuro grossly intact Psych/Mental Status: Appropriate Current Medications Acetaminophen (Acetaminophen 500 Mg Tablet) 1,000 mg PO Q6H PRN PRN PRN Reason: Pain Score 1-10 Last Admin: 12/23/20 20:36 Dose: 1,000 mg Documented by: Aspirin (Aspirin 81 Mg Tab.Chew) 81 mg PO DAILY@0800 [facility] Last Admin: 12/24/20 07:56 Dose: 81 mg Documented by: Atorvastatin Calcium (Atorvastatin Calcium 10 Mg Tablet) 5 mg PO QHS [facility] Last Admin: 12/23/20 20:37 Dose: 5 mg Documented by: Bisacodyl (Bisacodyl 5 Mg Tablet) 10 mg PO DAILY PRN PRN Reason: Constipation Calamine/Phenol (Menthol/Lanolin/Calamine/Znox 113 Gm Tube) 1 applic TOPICAL BID [facility]; Protocol Last Admin: 12/24/20 05:57 Dose: 1 applicatio Documented by: Emollient Ointment (Emollient Combination No.72 500 Ml Lotion) 1 applic TOPICAL HS [facility]; Protocol Last Admin: 12/23/20 20:37 Dose: 1 applicatio Documented by: Lorazepam (Lorazepam 0.5 Mg Tablet) 0.5 mg PO DAILY PRN PRN PRN Reason: ANXIETY Last Admin: 12/11/20 11:22 Dose: 0.5 mg Documented by: Metoprolol Tartrate (Metoprolol Tartrate 25 Mg Tablet) 25 mg PO BID [facility] Last Admin: 12/24/20 05:56 Dose: 25 mg Documented by: Multivitamins (Multivitamins,Therapeutic Tablet) [facility] Last Admin: 12/24/20 07:56 Dose: 1 tablet Documented by: Multivitamins/Minerals (Multivitamin (Healthy Eyes) Capsule) 1 capsule PO BID [facility] Last Admin: 12/24/20 05:51 Dose: 1 capsule Documented by: Ondansetron HCl (Ondansetron 8 Mg Tablet) 8 mg PO Q6H PRN PRN Reason: NAUSEA Polyethylene Glycol (Polyethylene Glycol 3350 17 Gm Packet) 17 gm PO DAILY [facility] Last Admin: 12/24/20 05:56 Dose: 17 gm Documented by: Polysaccharide Iron Complex (Iron Polysaccharide Complex 150 Mg Capsule) [facility] [place] Last Admin: 12/24/20 07:56 Dose: 150 mg Documented by: Senna/Docusate Sodium (Senna/Docusate Sodium 1 Tablet) 1 tablet PO BID [facility] Last Admin: 12/24/20 05:51 Dose: 1 tablet Documented by: Simethicone (Simethicone 80 Mg Tablet) 80 mg PO TIDPC PRN PRN Reason: GAS/ ABDOMINAL PAIN Last Admin: 12/23/20 18:41 Dose: 80 mg Documented by: Medical Necessity - Tobacco Use Smoking Status: Former smoker Tobacco Use: Non-smoker Assessment/Plan All Active Problems (Last Reviewed 12/02/20 @ 11:[address] Aramis Matthew MD) Gross hematuria (Acute) Leukocytosis (Acute) MERLE (acute kidney injury) (Acute) Debility (Acute) Dehydration (Acute) Urinary tract infection (Acute) Weakness (Acute) Hypokalemia (Acute) 1- MERLE on CKD stage 3. baseline Cr 1.8-2.4 mg/dl MERLE is likely post renal from B/L hydronephrosis.ATN is also possible S/P cystoscopy with pyelogram 12/05. s/p R PNT placement 12/06 Kidney function improved . last Cr 3.6 on 12/22. Cr peaked at 5.5 mg/dl UOP is adequate No need for urgent CHARTING CLERK. Continue holding losartan Check RFP in am 2- Metabolic acidosis from MERLE resolved 3- B/L hydronephrosis. Patient is s/p cystectomy with ileal conduit creation and B/L ureter stents placement in September 2020 s/p cystoscopy with pyelogram 12/05 s/p R PNT placement 12/06 Urology is following. e Renal team will continue to follow Please call if any question or concern at [phone] Marian Bhatia MD
--- NOTE | 2020-12-24 11:58 | NURSING ---
Received return call from Dr. Matthew's office, spoke with Cecille. Dr Matthew stated the dressing can be changed.
--- NOTE | 2020-12-24 13:43 | NURSING ---
changed pt dressing to right flank ok per . no s/s of infection. skin in tact. pt also had bm and blood in toilet with a few small clots. asked pt if he had hemorrhoids pt stated some times. rn aware
[2020-12-24 14:07] VITALS: BP 103/58; PULSE 49; RESP 18; TEMP 36.3; O2SAT 97
--- NOTE | 2020-12-24 14:30 | NURSING ---
PT STATED HE UPDATES FAMILY
[2020-12-24 18:02] VITALS: BP 142/78; PULSE 97
[2020-12-24 18:03] VITALS: BP 142/78; PULSE 97
[2020-12-24] MEDS: Hydrocortisone 25 MG Suppository RC (20:01)
[2020-12-24] MEDS: Atorvastatin Calcium 10 MG Tablet 5 MG PO (20:01)
[2020-12-25 05:00] VITALS: BP 134/63; PULSE 52; RESP 14; TEMP 36.4; O2SAT 98
[2020-12-25] MEDS: Polyethylene Glycol 3350 17 GM PACKET PO (05:25)
[2020-12-25] MEDS: Senna/Docusate Sodium 1 Tablet PO ×2 (05:27→18:21)
[2020-12-25] MEDS: Hydrocortisone 25 MG Suppository RC (05:27)
[2020-12-25] MEDS: Multivitamin (Healthy Eyes) Capsule 1 CAP PO ×2 (05:27→18:21)
[2020-12-25] MEDS: Menthol/Lanolin/Calamine/Znox 113 GM Tube 1 APPLIC TOPICAL ×2 (05:28→18:23)
[2020-12-25 06:04] LABS: Albumin, Serum 2.8 g/dL (3.2-5.0); BUN 60 mg/dL (7-18); BUN/Creat Ratio 17.4 RATIO (10-20); Calcium,Total 8.8 mg/dL (8.5-10.1); Chloride 108 mmol/L (98-107); Creatinine, Serum 3.44 mg/dL (0.70-1.30); EST Glomerular Filtration Rate 18 mL/min (>60); Est Glom Filt Rate - Afr Amer 22 mL/min (>60); Estimated Creatinine Clearance 17.94 ml/min; Glucose 95 mg/dL (74-106); Phosphorus 4.8 mg/dL (2.5-4.9); Potassium 4.3 mmol/L (3.5-5.1); Sodium Level 140 mmol/L (136-145)
[2020-12-25 06:45] VITALS: BP 134/63; PULSE 74
[2020-12-25] MEDS: Metoprolol Tartrate 25 MG Tablet PO ×2 (06:45→18:23)
[2020-12-25] MEDS: Iron Polysaccharide Complex 150 MG CAPSULE PO (08:50)
[2020-12-25] MEDS: Multivitamins,Therapeutic Tablet 1 TABLET PO (08:50)
[2020-12-25] MEDS: Aspirin 81 MG TAB.CHEW PO (08:50)
[2020-12-25 13:44] VITALS: BP 106/63; PULSE 43; RESP 16; TEMP 36.3; O2SAT 96
--- NOTE | 2020-12-25 15:10 | NURSING ---
UROSTOMY CHANGED BY LIAM SHELDON/WOUND NURSE.
--- NOTE | 2020-12-25 15:16 | NURSING ---
Urostomy appliance changed. stoma remains well budded and pink. peristomal skin is intact. cleansed skin with warm water. pat dry. applied a new flat 1 piece [place] appliance. pt tolerated well. pt denies further needs and is very appreciative of care.
--- NOTE | 2020-12-25 16:32 | NURSING ---
PT STATED HE UPDATES FAMILY
[2020-12-25 18:23] VITALS: BP 122/74; PULSE 90
[2020-12-25 18:25] VITALS: BP 122/74; PULSE 90
[2020-12-25] MEDS: Acetaminophen 500 MG Tablet 1000 MG PO (20:45)
[2020-12-25] MEDS: Atorvastatin Calcium 10 MG Tablet 5 MG PO (20:45)
[2020-12-25 21:00] VITALS: PULSE 90; RESP 16; O2SAT 95
[2020-12-26 05:00] VITALS: BP 110/58; PULSE 52; RESP 16; TEMP 36.6; O2SAT 97
[2020-12-26] MEDS: Senna/Docusate Sodium 1 Tablet PO ×2 (05:37→17:45)
[2020-12-26] MEDS: Multivitamin (Healthy Eyes) Capsule 1 CAP PO ×2 (05:37→17:45)
[2020-12-26] MEDS: Polyethylene Glycol 3350 17 GM PACKET PO (05:38)
[2020-12-26] MEDS: Hydrocortisone 25 MG Suppository RC ×2 (05:39→21:19)
[2020-12-26] MEDS: Menthol/Lanolin/Calamine/Znox 113 GM Tube 1 APPLIC TOPICAL ×2 (05:50→17:45)
[2020-12-26] MEDS: Iron Polysaccharide Complex 150 MG CAPSULE PO (08:10)
[2020-12-26] MEDS: Aspirin 81 MG TAB.CHEW PO (08:10)
[2020-12-26] MEDS: Multivitamins,Therapeutic Tablet 1 TABLET PO (08:10)
[2020-12-26 15:18] VITALS: BP 130/57; PULSE 80; RESP 16; TEMP 36.7; O2SAT 98
[2020-12-26 17:46] VITALS: PULSE 67
[2020-12-26] MEDS: Metoprolol Tartrate 25 MG Tablet PO (17:46)
[2020-12-26] MEDS: Atorvastatin Calcium 10 MG Tablet 5 MG PO (21:19)
[2020-12-26 21:26] VITALS: PULSE 78; RESP 18; O2SAT 96
[2020-12-26] MEDS: Acetaminophen 500 MG Tablet 1000 MG PO (22:34)
[2020-12-27 05:00] VITALS: BP 126/81; PULSE 62; RESP 16; TEMP 36.7; O2SAT 97
[2020-12-27 05:18] VITALS: BP 126/81; PULSE 62
[2020-12-27] MEDS: Multivitamin (Healthy Eyes) Capsule 1 CAP PO ×2 (05:18→17:24)
[2020-12-27] MEDS: Senna/Docusate Sodium 1 Tablet PO (05:18)
[2020-12-27] MEDS: Metoprolol Tartrate 25 MG Tablet PO ×2 (05:18→17:24)
[2020-12-27] MEDS: Hydrocortisone 25 MG Suppository RC ×2 (05:19→20:27)
[2020-12-27] MEDS: Menthol/Lanolin/Calamine/Znox 113 GM Tube 1 APPLIC TOPICAL ×2 (05:20→17:23)
[2020-12-27] MEDS: Polyethylene Glycol 3350 17 GM PACKET PO (05:27)
[2020-12-27] MEDS: Iron Polysaccharide Complex 150 MG CAPSULE PO (08:33)
[2020-12-27] MEDS: Multivitamins,Therapeutic Tablet 1 TABLET PO (08:33)
[2020-12-27] MEDS: Aspirin 81 MG TAB.CHEW PO (08:33)
[2020-12-27 13:47] VITALS: BP 123/69; PULSE 71; RESP 16; TEMP 36.7; O2SAT 97
--- NOTE | 2020-12-27 14:50 | NURSING ---
pt stated he updates family
[2020-12-27 17:24] VITALS: BP 123/69; PULSE 71
[2020-12-27 20:05] VITALS: PULSE 58; RESP 16; O2SAT 93
[2020-12-27] MEDS: Atorvastatin Calcium 10 MG Tablet 5 MG PO (20:26)
[2020-12-28 04:02] VITALS: BP 124/41; PULSE 65; RESP 16; TEMP 36.4; O2SAT 96
[2020-12-28 06:02] VITALS: PULSE 64
[2020-12-28] MEDS: Multivitamin (Healthy Eyes) Capsule 1 CAP PO ×2 (06:02→17:18)
[2020-12-28] MEDS: Metoprolol Tartrate 25 MG Tablet PO ×2 (06:02→17:18)
[2020-12-28] MEDS: Menthol/Lanolin/Calamine/Znox 113 GM Tube 1 APPLIC TOPICAL ×2 (06:03→17:18)
[2020-12-28 06:49] VITALS: PULSE 65; RESP 18; O2SAT 96
[2020-12-28] MEDS: Iron Polysaccharide Complex 150 MG CAPSULE PO (08:09)
[2020-12-28] MEDS: Multivitamins,Therapeutic Tablet 1 TABLET PO (08:09)
[2020-12-28] MEDS: Aspirin 81 MG TAB.CHEW PO (08:09)
--- NOTE | 2020-12-28 10:06 | NURSING ---
Urostomy appliance changed. peristomal skin remains intact. cleansed with warm water. pat dry. applied a new flat 1 piece [place] appliance. pt tolerated well. dressing to the nephrostomy tube is D&I. pt states was changed last pm.
[2020-12-28 14:18] VITALS: BP 134/69; PULSE 60; RESP 16; TEMP 36.1; O2SAT 97
[2020-12-28 17:18] VITALS: PULSE 60
[2020-12-28] MEDS: Senna/Docusate Sodium 1 Tablet PO (17:18)
--- NOTE | 2020-12-28 17:18 | PCA ---
This Process Mold Technician put $18 in beautician drop box for patient. He had a haircut today
[2020-12-28] MEDS: Acetaminophen 500 MG Tablet 1000 MG PO (21:41)
[2020-12-28] MEDS: Hydrocortisone 25 MG Suppository RC (21:42)
[2020-12-28] MEDS: Atorvastatin Calcium 10 MG Tablet 5 MG PO (21:51)
[2020-12-29 05:00] VITALS: BP 131/75; PULSE 75; RESP 16; TEMP 35.9; O2SAT 95
[2020-12-29] MEDS: Multivitamin (Healthy Eyes) Capsule 1 CAP PO ×2 (05:32→17:33)
[2020-12-29] MEDS: Senna/Docusate Sodium 1 Tablet PO (05:32)
[2020-12-29 05:33] VITALS: BP 131/75; PULSE 75
[2020-12-29] MEDS: Menthol/Lanolin/Calamine/Znox 113 GM Tube 1 APPLIC TOPICAL ×2 (05:33→16:27)
[2020-12-29] MEDS: Metoprolol Tartrate 25 MG Tablet PO ×2 (05:33→17:33)
[2020-12-29 07:36] LABS: Absolute Lymphocyte Count 1.52 X10^3/uL (0.83-4.51); Absolute Neutrophil Count 3.6 X10^3/uL (2.0-7.7); Basophil# 0.09 X10^3/uL; Basophil% 1.4 % (0-1); Eosinophils% 1.5 % (0-5); Hematocrit 32.1 % (40-54); Hemoglobin 9.7 g/dL (13.0-16.5); Lymphocyte # 1.52 X10^3/ul (4.0); Lymphocyte % 23.1 % (19-41); Mean Corp Hgb Conc 30.2 g/dL (32-36); Mean Corpuscular Hgb 25.7 pg (27.0-32.0); Mean Corpuscular Volume 84.9 fL (80-94); Mean Platelet Vol. 10.8 fl (6.2-12.0); Monocyte# 1.25 X10^3/uL; NRBC Flagged by Analyzer 0 % (0-5); Neutrophil % 54.5 % (47-70); Platelet Count 178 K/mm3 (150-450); RBC Distribution Width CV 18.1 % (11.6-14.6); RBC Distribution Width SD 56.4 fl (35.1-43.9); Red Blood Count 3.78 M/mm3 (4.6-6.2); White Blood Count 6.6 K/mm3 (4.4-11.0)
[2020-12-29 07:59] LABS: Anion Gap 7 (5-15); BUN 46 mg/dL (7-18); BUN/Creat Ratio 14.4 RATIO (10-20); Chloride 107 mmol/L (98-107); Creatinine, Serum 3.19 mg/dL (0.70-1.30); EST Glomerular Filtration Rate 20 mL/min (>60); Est Glom Filt Rate - Afr Amer 24 mL/min (>60); Estimated Creatinine Clearance 19.34 ml/min; Glucose 94 mg/dL (74-106); Potassium 4.5 mmol/L (3.5-5.1); Sodium Level 140 mmol/L (136-145)
[2020-12-29] MEDS: Iron Polysaccharide Complex 150 MG CAPSULE PO (08:13)
[2020-12-29] MEDS: Aspirin 81 MG TAB.CHEW PO (08:13)
[2020-12-29] MEDS: Multivitamins,Therapeutic Tablet 1 TABLET PO (08:13)
[2020-12-29 13:46] VITALS: BP 128/77; PULSE 79; RESP 18; TEMP 36.3; O2SAT 98
[2020-12-29 17:33] VITALS: PULSE 78
[2020-12-29] MEDS: Atorvastatin Calcium 10 MG Tablet 5 MG PO (22:05)
[2020-12-29 22:15] VITALS: PULSE 70; RESP 16; O2SAT 97
[2020-12-29] MEDS: Hydrocortisone 25 MG Suppository RC (22:15)
[2020-12-29] MEDS: Acetaminophen 500 MG Tablet 1000 MG PO (22:17)
[2020-12-30 05:00] VITALS: BP 132/74; PULSE 66; RESP 18; TEMP 36.9; O2SAT 97
[2020-12-30 05:43] VITALS: BP 132/74; PULSE 66
[2020-12-30] MEDS: Metoprolol Tartrate 25 MG Tablet PO ×2 (05:43→18:09)
[2020-12-30] MEDS: Multivitamin (Healthy Eyes) Capsule 1 CAP PO ×2 (05:43→18:09)
[2020-12-30] MEDS: Senna/Docusate Sodium 1 Tablet PO ×2 (05:43→18:09)
[2020-12-30] MEDS: Menthol/Lanolin/Calamine/Znox 113 GM Tube 1 APPLIC TOPICAL ×2 (05:48→18:12)
[2020-12-30] MEDS: Iron Polysaccharide Complex 150 MG CAPSULE PO (10:13)
[2020-12-30] MEDS: Aspirin 81 MG TAB.CHEW PO (10:13)
[2020-12-30] MEDS: Multivitamins,Therapeutic Tablet 1 TABLET PO (10:13)
[2020-12-30 14:57] VITALS: BP 137/75; PULSE 80; RESP 18; TEMP 36.2; O2SAT 98
[2020-12-30 18:09] VITALS: BP 137/75; PULSE 80
[2020-12-30] MEDS: Hydrocortisone 25 MG Suppository RC (21:33)
[2020-12-30] MEDS: Atorvastatin Calcium 10 MG Tablet 5 MG PO (21:34)
[2020-12-30] MEDS: Acetaminophen 500 MG Tablet 1000 MG PO (21:37)
[2020-12-31 05:00] VITALS: BP 124/68; PULSE 76; RESP 16; TEMP 36.9; O2SAT 98
[2020-12-31 06:12] VITALS: BP 124/68; PULSE 78
[2020-12-31] MEDS: Multivitamin (Healthy Eyes) Capsule 1 CAP PO ×2 (06:12→17:37)
[2020-12-31] MEDS: Senna/Docusate Sodium 1 Tablet PO ×2 (06:12→17:37)
[2020-12-31] MEDS: Metoprolol Tartrate 25 MG Tablet PO ×2 (06:12→17:37)
[2020-12-31] MEDS: Menthol/Lanolin/Calamine/Znox 113 GM Tube 1 APPLIC TOPICAL ×2 (06:15→17:38)
[2020-12-31] MEDS: Iron Polysaccharide Complex 150 MG CAPSULE PO (08:14)
[2020-12-31] MEDS: Aspirin 81 MG TAB.CHEW PO (08:14)
[2020-12-31] MEDS: Multivitamins,Therapeutic Tablet 1 TABLET PO (08:14)
[2020-12-31 14:22] VITALS: BP 130/71; PULSE 74; RESP 20; TEMP 36.1; O2SAT 97
[2020-12-31 17:37] VITALS: PULSE 74
[2020-12-31] MEDS: Atorvastatin Calcium 10 MG Tablet 5 MG PO (21:07)
[2020-12-31] MEDS: Hydrocortisone 25 MG Suppository RC (21:10)
[2020-12-31] MEDS: Acetaminophen 500 MG Tablet 1000 MG PO (21:14)
[2020-12-31 21:20] VITALS: PULSE 70; RESP 16; O2SAT 95
[2021-01-01 05:00] VITALS: BP 122/61; PULSE 60; RESP 18; TEMP 36.6; O2SAT 97
[2021-01-01 06:03] VITALS: BP 122/61; PULSE 60
[2021-01-01] MEDS: Senna/Docusate Sodium 1 Tablet PO (06:03)
[2021-01-01] MEDS: Metoprolol Tartrate 25 MG Tablet PO (06:03)
[2021-01-01] MEDS: Multivitamin (Healthy Eyes) Capsule 1 CAP PO ×2 (06:03→17:07)
[2021-01-01] MEDS: Menthol/Lanolin/Calamine/Znox 113 GM Tube 1 APPLIC TOPICAL ×2 (06:10→17:07)
[2021-01-01] MEDS: Multivitamins,Therapeutic Tablet 1 TABLET PO (07:51)
[2021-01-01] MEDS: Aspirin 81 MG TAB.CHEW PO (07:51)
[2021-01-01] MEDS: Iron Polysaccharide Complex 150 MG CAPSULE PO (07:51)
[2021-01-01 09:45] VITALS: PULSE 63; RESP 18; O2SAT 97
--- NOTE | 2021-01-01 14:06 | NURSING ---
pt stated he updates his family
[2021-01-01 14:08] VITALS: BP 129/58; PULSE 50; RESP 18; TEMP 36.1; O2SAT 97
--- NOTE | 2021-01-01 14:48 | NURSING ---
PT OSTOMY UNIT CHANGED,SKIN CLEANED TODAY. PT TOLERATED WELL. SKIN IN TACKED.
--- NOTE | 2021-01-01 16:17 | CASEMGMT ---
Social Work Met with patient in room. This social media designer communicating discharge date of 01/05/2021. Patient tearful and agreeable to discharge. Patient reports to be looking forward to being able to see my . Active support and listening provided. Therapy recommending for patient to have continued service within the home for both physical and occupational therapy patient to also have skill nursing services. Patient is agreeable home health recommendations and requesting for home health services to be set up through [facility]. Patient reports to have need durable medical equipment already set up within the home. Patient familiar with urostomy and reports to have needed supplies already in the home. Patient reports plan to update spouse on discharge date and plan. Patient wishes to discharge around 1:00pm on 01/05/2021. Proposed discharge date: 01/05/2021 Will continue to follow. Javon MARIN, DONALDO
[2021-01-01 17:06] VITALS: PULSE 48
[2021-01-01 18:10] VITALS: BP 129/58; PULSE 48
--- NOTE | 2021-01-01 20:16 | PCM.TCUNOT ---
Subjective: Resident seen in room for regulatory visit. He is sitting in chair after eating lunch. He has no new complaints, he feels he is getting stronger everyday. He is able to manage urostomy bags. Vitals/I&O's: Vital Signs Temp Pulse Resp BP Pulse Ox 97.0 F L 48 L 18 129/58 H 97 01/01/21 14:08 01/01/21 18:10 01/01/21 14:08 01/01/21 18:10 01/01/21 14:08 Oxygen Delivery Method Room Air Weight: 105.914 kg Body Mass Index (BMI) 30.1 Intake and Output for Last 24 Hours 12/30/20 12/31/20 01/01/21 23:59 23:59 23:59 Intake Total 1080 / 1080 1080 / 1080 480 / 480 Output Total 1925 / 1925 1200 / 1200 1550 / 1550 Balance -845 / -845 -120 / -120 -1070 / -1070 Past Medical History Past Medical History (Chronic Problems): Chronic Problems (Last Reviewed 12/02/20 @ 11:[address] Aramis Matthew MD) Bladder tumor (Chronic) Bladder cancer (Chronic) Hypertension (Chronic) Hyperlipidemia (Chronic) Anxiety (Chronic) Appetite loss (Chronic) Medical History: Medical History (Last Reviewed 12/02/20 @ 11:[address] 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 CKD (chronic kidney disease) stage 3, GFR 30-59 ml/min N18.30 HTN (hypertension) I10 Allergies atenolol Adverse Reaction (Verified 12/01/20 12:20) hypotension HYPOTENSION tamsulosin [From Flomax] Adverse Reaction (Verified 12/01/20 12:20) PT UNSURE OF REACTION passed out Home Medications: Ambulatory Orders Medication Instructions Recorded Losartan Potassium [Cozaar] 50 mg PO DAILY 05/01/16 Simvastatin [Zocor] 10 mg PO QHS 05/01/16 Aspirin [Aspirin, Baby] 81 mg PO DAILY@0800 05/01/19 Multivitamin [Daily Value] 1 ea PO DAILY 12/11/19 Vit C/E/Zn/Coppr/Lutein/Zeaxan 1 ea PO BID 12/11/19 [Preservision Areds 2 Softgel] Lorazepam [Ativan] 0.5 mg PO DAILY PRN PRN 11/30/20 Ondansetron [Ondansetron Odt] 8 mg PO Q6H PRN 11/30/20 Acetaminophen [Tylenol Tablet] 650 mg PO Q6H PRN PRN tab 12/10/20 Menthol/Lanolin/Calamine/Znox 1 applic TOPICAL BID 12/10/20 [Calmoseptine Ointment] Metoprolol Tartrate [Lopressor 25 mg PO BID 12/10/20 (beta neetu)] SimETHICONE [Mylicon] 80 mg PO TIDPC PRN tab 12/10/20 levoFLOXacin tablet [Levaquin 250 mg PO Q48@0600 12/10/20 tablet] Surgical History: Surgical History (Last Reviewed 12/02/20 @ 11:[address] Aramis Matthew MD) History of cystoscopy Z98.890 2015, 05/06/19 TURBT >5cm 08/22/2020, 02/04/2019 TURP 2015, 2005 Surgical History: TURP, - - TURBT, Ileal conduit, right nephrostomy tube. Psychiatric History: No pertinent psych hx Lives: Spouse/ Significant Other Smoking Status: Former smoker Tobacco Use: Non-smoker Alcohol: None Drugs: None - *Family History Maternal History Items: No pertinent history Paternal History Items: No pertinent history Capacity - Capacity Assessment Tool Can the patient make a choice & communicate that choice?: Yes Can the patient understand benefits, risks and alternatives?: Yes Can the patient make a logical, rational choice?: Yes Is the choice the patient makes consistent w/ their values?: Yes Is there an impending, emergent risk to the patient?: No Does the patient have an Advance Directive?: Yes Is there a Surrogate Available?: Yes i.e. HCPOA: Yes i.e. close relative (spouse, child, parent, sibling)?: Yes Review of Systems Constitutional: Denies: Chills, Fever, Weight Change HEENT: Denies: Head Aches, Sinus Congestion, Sinus Drainage Cardiovascular: Denies: Chest Pain, Palpitations Respiratory: Denies: Cough, Shortness of breath at rest, Sputum production Gastrointestinal: Denies: Abdominal Pain, Nausea, Vomiting Genitourinary: Denies: Dysuria Musculoskeletal: Denies: Joint Pain, Joint Tenderness Skin: Denies: Rash, Wounds Neurological: Denies: Numbness, Tingling, Focal weakness Psychiatric: Denies: Anxiety, Depression, Homicidal Ideations, Suicidal Ideations Hematologic/ Lymphatic: Denies: Easy Bruising, Easy Bleeding Patient Problems: Active and Suspected Problems (Last Reviewed 12/02/20 @ 11:[address] Aramis Matthew MD) Gross hematuria (Acute) Leukocytosis (Acute) MERLE (acute kidney injury) (Acute) Debility (Acute) Dehydration (Acute) Urinary tract infection (Acute) Weakness (Acute) Hypokalemia (Acute) - Physical Exam Vitals/I&O's: Vital Signs Temp Pulse Resp BP Pulse Ox 97.0 F L 48 L 18 129/58 H 97 01/01/21 14:08 01/01/21 18:10 01/01/21 14:08 01/01/21 18:10 01/01/21 14:08 Oxygen Delivery Method Room Air Weight: 105.914 kg Body Mass Index (BMI) 30.1 Intake and Output for Last 24 Hours 12/30/20 12/31/20 01/01/21 23:59 23:59 23:59 Intake Total 1080 / 1080 1080 / 1080 480 / 480 Output Total 1925 / 1925 1200 / 1200 1550 / 1550 Balance -845 / -845 -120 / -120 -1070 / -1070 General: Alert, Oriented x3, Cooperative HEENT: Atraumatic, PERRLA, EOMI, Normocephalic Neck: Supple, No JVD, Negative Carotid Bruits Lungs: Clear to auscultation, Normal air movement Cardiovascular: Regular rate, No murmurs Abdomen: Bowel Sounds Present, Soft, Non Tender, - - Right lower quadrant ileal conduit, right nephrostomy tube. Extremities: No edema, Capillary Refill Less than 3 Seconds Skin: No rashes, No breakdown Musculoskeletal: No Tenderness to Palpation of Joints or Extremities Neurological: Cranial nerves II-XII grossly intact Psych/Mental Status: Normal Affect, Appropriate Current Medications Acetaminophen (Acetaminophen 500 Mg Tablet) 1,000 mg PO Q6H PRN PRN PRN Reason: Pain Score 1-10 Last Admin: 12/31/20 21:14 Dose: 1,000 mg Documented by: Aspirin (Aspirin 81 Mg Tab.Chew) 81 mg PO DAILY@0800 [facility] Last Admin: 01/01/21 07:51 Dose: 81 mg Documented by: Atorvastatin Calcium (Atorvastatin Calcium 10 Mg Tablet) 5 mg PO QHS [facility] Last Admin: 12/31/20 21:07 Dose: 5 mg Documented by: Bisacodyl (Bisacodyl 5 Mg Tablet) 10 mg PO DAILY PRN PRN Reason: Constipation Calamine/Phenol (Menthol/Lanolin/Calamine/Znox 113 Gm Tube) 1 applic TOPICAL BID [facility]; Protocol Last Admin: 01/01/21 17:07 Dose: 1 applicatio Documented by: Emollient Ointment (Emollient Combination No.72 500 Ml Lotion) 1 applic TOPICAL HS [facility]; Protocol Last Admin: 12/31/20 21:16 Dose: 1 applicatio Documented by: Hydrocortisone Acetate (Hydrocortisone 25 Mg Suppository) 25 mg RC 0600,2200 [facility] Stop: 01/04/21 22:01 Last Admin: 01/01/21 06:04 Dose: Not Given Documented by: Lorazepam (Lorazepam 0.5 Mg Tablet) 0.5 mg PO DAILY PRN PRN PRN Reason: ANXIETY Last Admin: 12/11/20 11:22 Dose: 0.5 mg Documented by: Metoprolol Tartrate (Metoprolol Tartrate 25 Mg Tablet) 25 mg PO BID [facility] Last Admin: 01/01/21 18:10 Dose: Not Given Documented by: Multivitamins (Multivitamins,Therapeutic Tablet) 1 tablet PO DAILYCM [facility] Last Admin: 01/01/21 07:51 Dose: 1 tablet Documented by: Multivitamins/Minerals (Multivitamin (Healthy Eyes) Capsule) 1 capsule PO BID [facility] Last Admin: 01/01/21 17:07 Dose: 1 capsule Documented by: Ondansetron HCl (Ondansetron 8 Mg Tablet) 8 mg PO Q6H PRN PRN Reason: NAUSEA Polyethylene Glycol (Polyethylene Glycol 3350 17 Gm Packet) 17 gm PO DAILY [facility] Last Admin: 01/01/21 06:03 Dose: Not Given Documented by: Polysaccharide Iron Complex (Iron Polysaccharide Complex 150 Mg Capsule) [facility] Last Admin: 01/01/21 07:51 Dose: 150 mg Documented by: Senna/Docusate Sodium (Senna/Docusate Sodium 1 Tablet) 1 tablet PO BID [facility] Last Admin: 01/01/21 17:07 Dose: Not Given Documented by: Simethicone (Simethicone 80 Mg Tablet) 80 mg PO TIDPC PRN PRN Reason: GAS/ ABDOMINAL PAIN Last Admin: 12/26/20 21:19 Dose: 80 mg Documented by: Assessment/Plan All Active Problems (Last Reviewed 12/02/20 @ 11:[address] Aramis Matthew MD) Gross hematuria (Acute) Leukocytosis (Acute) MERLE (acute kidney injury) (Acute) Debility (Acute) Dehydration (Acute) Urinary tract infection (Acute) Weakness (Acute) Hypokalemia (Acute) 80 year old male with below past medical history hospitalized for complicated polymicrobial urinary tract infection, complicated by acute on chronic kidney failure, ureteral obstruction, anemia, admitted to TCU with debility, here for rehabilitation, strengthening, prior to discharge home with . Debility - PT/OT. Pain - Tylenol 1000MG Q6H PRN pain (1-10). Bowel - Miralax 17GM daily, Senna/colace 1 tablet BID, Dulcolax 10MG PO daily PRN. Adult immunization - Administer Prevnar 13, Pneumovax 23, Fluzone, COVID19 vaccine as appropriate. DVT prophylaxis - Hold, anemia. CV prophylaxis - Aspirin 81MG daily. Hyperlipidemia - Atorvastatin 5MG QHS. Nutrition - MVI daily. MSSA, Pseudomonas, [place] UTI - Finished Levaquin course. Acute kidney injury - Renal function improved. Anxiety - Lorazepam 0.5MG daily PRN, stable chronic mcc use, GDR not recommended. Hypertension - Metoprolol 25MG BID. Skin irritation - Calmoseptine topical BID, Eucerin topical QHS. Macular degeneration - Healthy Eyes 1 capsule BID. Nausea - Zofran 8MG Q6H PRN. Gas - Simethicone 80MG TIDPC PRN. Hemorrhoids - Anusol 25MG RC BID thru 01/04/2021. Iron deficiency anemia - Ferrex 150MG daily.
[2021-01-01] MEDS: Hydrocortisone 25 MG Suppository RC (20:48)
[2021-01-01] MEDS: Atorvastatin Calcium 10 MG Tablet 5 MG PO (20:48)
[2021-01-01] MEDS: Acetaminophen 500 MG Tablet 1000 MG PO (20:51)
[2021-01-02 05:00] VITALS: BP 139/77; PULSE 75; RESP 18; TEMP 36.6; O2SAT 97
[2021-01-02 05:59] VITALS: BP 139/77; PULSE 75
[2021-01-02] MEDS: Metoprolol Tartrate 25 MG Tablet PO ×2 (05:59→17:20)
[2021-01-02] MEDS: Menthol/Lanolin/Calamine/Znox 113 GM Tube 1 APPLIC TOPICAL ×2 (06:00→17:21)
[2021-01-02] MEDS: Multivitamin (Healthy Eyes) Capsule 1 CAP PO ×2 (06:00→17:20)
[2021-01-02] MEDS: Senna/Docusate Sodium 1 Tablet PO ×2 (06:01→17:20)
[2021-01-02] MEDS: Aspirin 81 MG TAB.CHEW PO (07:52)
[2021-01-02] MEDS: Multivitamins,Therapeutic Tablet 1 TABLET PO (07:52)
[2021-01-02] MEDS: Iron Polysaccharide Complex 150 MG CAPSULE PO (07:52)
--- NOTE | 2021-01-02 08:25 | PCM.DC ---
- Discharge Diagnoses Current Active Problems: Current Active and Chronic Problems (Last Reviewed 12/02/20 @ 11:[address] Aramis Matthew MD) Gross hematuria (Acute) Bladder tumor (Chronic) Bladder cancer (Chronic) Leukocytosis (Acute) MRELE (acute kidney injury) (Acute) Debility (Acute) Dehydration (Acute) Urinary tract infection (Acute) Weakness (Acute) Hypokalemia (Acute) Hypertension (Chronic) Hyperlipidemia (Chronic) Anxiety (Chronic) Appetite loss (Chronic) You will use the following diet at home:: No restrictions, Regular Your food should be the consistency of: Regular Your liquids should be the consistency of: Regular/Thin Discharge Activity: Return to Normal Activity, May Shower, Use Walker Weight Bearing Status: Weight bearing as tolerated Call your doctor if you observe: Fever of 101 or Higher, Inability to urinate, Inability to have a bowel movement, Shortness of breath, Chest pain, Uncontrolled pain Allergies/Adverse Reactions: Allergies atenolol Adverse Reaction (Verified 12/01/20 12:20) hypotension HYPOTENSION tamsulosin [From Flomax] Adverse Reaction (Verified 12/01/20 12:20) PT UNSURE OF REACTION passed out Medications to take at Discharge Simvastatin [Zocor] 10 mg PO QHS 05/01/16 Aspirin [Aspirin, Baby] 81 mg PO DAILY@0800 05/01/19 Multivitamin [Daily Value] 1 ea PO DAILY 12/11/19 Vit C/E/Zn/Coppr/Lutein/Zeaxan [Preservision Areds 2 Softgel] 1 ea PO BID 12/11/19 Lorazepam [Ativan] 0.5 mg PO DAILY PRN PRN 11/30/20 Ondansetron [Ondansetron Odt] 8 mg PO Q6H PRN 11/30/20 Menthol/Lanolin/Calamine/Znox [Calmoseptine Ointment] 1 applic TOPICAL BID 12/10/20 Metoprolol Tartrate [Lopressor (beta neetu)] 25 mg PO BID 12/10/20 Acetaminophen [Tylenol] 1,000 mg PO Q6H PRN PRN tablet 01/02/21 Emollient Combination No.72 [Eucerin Intensive Repair] 1 applic TOPICAL HS lotion 01/02/21 Iron Polysaccharide Complex [Ferrex 150] 150 mg PO DAILYCM #30 capsule 01/02/21 SimETHICONE [Mylicon] 80 mg PO TIDPC PRN #90 tablet 01/02/21 The following prescriptions were given: Iron Polysaccharide Complex [Ferrex 150] 150 mg PO DAILYCM #30 capsule Transmission Status: Pending to [facility]/pharmacy #[id number] SimETHICONE [Mylicon] 80 mg PO TIDPC PRN #90 tablet PRN Reason: bettie abd. Transmission Status: Pending to [facility]/pharmacy #[id number] Primary Care Physician: Kim Torres MD [Primary Care Provider] - Please follow up with your Primary Care Physician in: 1 week. Test Results: Test results from this visit will be discussed in further detail at your follow-up appointment, if applicable. Please Follow Up With: Aramis Matthew MD When: f/u 1-2 wks Please Follow Up With: Audra Engle MD When: f/u 1 week Proposed Discharge Date: 01/05/21
--- NOTE | 2021-01-02 08:26 | PCM.DC.SUM ---
Discharge Date and Diagnosis - Problem List Patient Problems: Active and Suspected Problems (Last Reviewed 12/02/20 @ 11:[address] Aramis Matthew MD) Gross hematuria (Acute) Leukocytosis (Acute) MERLE (acute kidney injury) (Acute) Debility (Acute) Dehydration (Acute) Urinary tract infection (Acute) Weakness (Acute) Hypokalemia (Acute) Date of Admission: 12/17/20 Date of Discharge: 01/05/21 - Primary Discharge Diagnosis Acute Problems: Active Problems (Last Reviewed 12/02/20 @ 11:[address] Aramis Matthew MD) Gross hematuria (Acute) Leukocytosis (Acute) MERLE (acute kidney injury) (Acute) Debility (Acute) Dehydration (Acute) Urinary tract infection (Acute) Weakness (Acute) Hypokalemia (Acute) - Secondary Discharge Diagnosis Chronic Problems: Chronic Problems (Last Reviewed 12/02/20 @ 11:[address] Aramis Matthew MD) Bladder tumor (Chronic) Bladder cancer (Chronic) Hypertension (Chronic) Hyperlipidemia (Chronic) Anxiety (Chronic) Appetite loss (Chronic) Hospital Course and Treatment Imaging Results: 12/10/20 17:08 Diet: Sodium Restricted (MOD) Food consistency:: Regular Liquid Consistency:: Regular/Thin Diet Comments: ensure pudding or magic cup w/ lunch and dinner Clinical Impression(s) from Imaging Studies KUB X-Ray 12/10/20 18:09 IMPRESSION: 1. Dilated loops of large and small bowel. Question ileus. 2. Left ureteral stent. 3. Right nephrostomy tube. Electronically Signed: Mikey Reyes DO at 22:36 EST Tel [phone], Service support , Consultations 12/11/20 02:07 Consult: Onc/Wound/skein yard drier Routine Comment: Reason for Consult:: Urostomy Operations: None, - - Open radical cystoprostatectomy and formation of an ileal conduit Procedures: None Summary of Care Provided: The patient is a 80 year old Male with below past medical history hospitalized for complicated polymicrobial urinary tract infection, complicated by acute on chronic kidney failure, ureteral obstruction, anemia, admitted to TCU with debility, here for rehabilitation, strengthening, prior to discharge home with . On TCU, Losartan stopped per Nephrology due to acute kidney injury. Iron added for iron deficiency anemia. Simethicone added for excessive gas. Discharge home with , [facility] PT/OT/SN. No durable medical equipment needs. Patient Problems: Active and Suspected Problems (Last Reviewed 12/02/20 @ 11:[address] Aramis Matthew MD) Gross hematuria (Acute) Leukocytosis (Acute) MERLE (acute kidney injury) (Acute) Debility (Acute) Dehydration (Acute) Urinary tract infection (Acute) Weakness (Acute) Hypokalemia (Acute) - Physical Exam Vitals/I&O's: Vital Signs Temp Pulse Resp BP Pulse Ox 97.8 F 75 18 139/77 H 97 01/02/21 05:00 01/02/21 05:59 01/02/21 05:00 01/02/21 05:59 01/02/21 05:00 Oxygen Delivery Method Room Air Weight: 105.914 kg Body Mass Index (BMI) 30.1 Intake and Output for Last 24 Hours 12/31/20 01/01/21 01/02/21 23:59 23:59 23:59 Intake Total 1080 / 1080 840 / 840 Output Total 1200 / 1200 1550 / 1550 975 / 975 Balance -120 / -120 -710 / -710 -975 / -975 Current Medications Acetaminophen (Acetaminophen 500 Mg Tablet) 1,000 mg PO Q6H PRN PRN PRN Reason: Pain Score 1-10 Last Admin: 01/01/21 20:51 Dose: 1,000 mg Documented by: Aspirin (Aspirin 81 Mg Tab.Chew) 81 mg PO DAILY@0800 [facility] Last Admin: 01/02/21 07:52 Dose: 81 mg Documented by: Atorvastatin Calcium (Atorvastatin Calcium 10 Mg Tablet) 5 mg PO QHS [facility] Last Admin: 01/01/21 20:48 Dose: 5 mg Documented by: Bisacodyl (Bisacodyl 5 Mg Tablet) 10 mg PO DAILY PRN PRN Reason: Constipation Calamine/Phenol (Menthol/Lanolin/Calamine/Znox 113 Gm Tube) 1 applic TOPICAL BID [facility]; Protocol Last Admin: 01/02/21 06:00 Dose: 1 applicatio Documented by: Emollient Ointment (Emollient Combination No.72 500 Ml Lotion) 1 applic TOPICAL HS [facility]; Protocol Last Admin: 01/01/21 20:48 Dose: 1 applicatio Documented by: Hydrocortisone Acetate (Hydrocortisone 25 Mg Suppository) 25 mg RC 0600,2200 [facility] Stop: 01/04/21 22:01 Last Admin: 01/02/21 06:00 Dose: Not Given Documented by: Lorazepam (Lorazepam 0.5 Mg Tablet) 0.5 mg PO DAILY PRN PRN PRN Reason: ANXIETY Last Admin: 12/11/20 11:22 Dose: 0.5 mg Documented by: Metoprolol Tartrate (Metoprolol Tartrate 25 Mg Tablet) 25 mg PO BID [facility] Last Admin: 01/02/21 05:59 Dose: 25 mg Documented by: [facility]ivitamins ([facility]) [facility] Admin: 01/02/21 07:52 Dose: 1 tablet Documented by: Multivitamins/Minerals (Multivitamin (Healthy Eyes) Capsule) 1 capsule PO BID [facility] Last Admin: 01/02/21 06:00 Dose: 1 capsule Documented by: Ondansetron HCl (Ondansetron 8 Mg Tablet) 8 mg PO Q6H PRN PRN Reason: NAUSEA Polyethylene Glycol (Polyethylene Glycol 3350 17 Gm Packet) 17 gm PO DAILY [facility] Last Admin: 01/02/21 06:00 Dose: Not Given Documented by: Polysaccharide Iron Complex (Iron Polysaccharide Complex 150 Mg Capsule) [facility] Last Admin: 01/02/21 07:52 Dose: 150 mg Documented by: Senna/Docusate Sodium (Senna/Docusate Sodium 1 Tablet) 1 tablet PO BID [facility] Last Admin: 01/02/21 06:01 Dose: 1 tablet Documented by: Simethicone (Simethicone 80 Mg Tablet) 80 mg PO TIDPC PRN PRN Reason: GAS/ ABDOMINAL PAIN Last Admin: 01/01/21 21:23 Dose: 80 mg Documented by: Discharge Diet: No Restrictions Discharge Activity: Return to Normal Activity, May Shower, Use Walker Weight Bearing Status: Weight bearing as tolerated Call your doctor if you observe: Fever of 101 or Higher, Inability to urinate, Inability to have a bowel movement, Shortness of breath, Chest pain, Uncontrolled pain Home Medications: Medications to take at Discharge Simvastatin [Zocor] 10 mg PO QHS 05/01/16 Aspirin [Aspirin, Baby] 81 mg PO DAILY@0800 05/01/19 Multivitamin [Daily Value] 1 ea PO DAILY 12/11/19 Vit C/E/Zn/Coppr/Lutein/Zeaxan [Preservision Areds 2 Softgel] 1 ea PO BID 12/11/19 Lorazepam [Ativan] 0.5 mg PO DAILY PRN PRN 11/30/20 Ondansetron [Ondansetron Odt] 8 mg PO Q6H PRN 11/30/20 Menthol/Lanolin/Calamine/Znox [Calmoseptine Ointment] 1 applic TOPICAL BID 12/10/20 Metoprolol Tartrate [Lopressor (beta neetu)] 25 mg PO BID 12/10/20 Acetaminophen [Tylenol] 1,000 mg PO Q6H PRN PRN tablet 01/02/21 Emollient Combination No.72 [Eucerin Intensive Repair] 1 applic TOPICAL HS lotion 01/02/21 Iron Polysaccharide Complex [Ferrex 150] 150 mg PO DAILYCM #30 capsule 01/02/21 SimETHICONE [Mylicon] 80 mg PO TIDPC PRN #90 tablet 01/02/21 Following Prescriptions Were Given to Patient: Iron Polysaccharide Complex [Ferrex 150] 150 mg PO DAILYCM #30 capsule Transmission Status: Pending to [facility]/pharmacy #[id number] SimETHICONE [Mylicon] 80 mg PO TIDPC PRN #90 tablet PRN Reason: bettie abd. Transmission Status: Pending to [facility]/pharmacy #[id number] Primary Care Physician: Kim Torres MD [Primary Care Provider] - Please follow up with your Primary Care Physician in: 1 week. Please Follow Up With: Aramis Matthew MD When: f/u 1-2 wks Please Follow Up With: Audra Engle MD When: f/u 1 week Disposition: Home with Home Health Minutes spent on discharge:: 35 Patient Condition:: Stable Medical Necessity - Tobacco Use Smoking Status: Former smoker Tobacco Use: Non-smoker Meaningful Use Info Meaningful Use Diagnoses (Choose all that apply): None applicable
--- NOTE | 2021-01-02 13:11 | CASEMGMT ---
Social Work Telephone call to [facility] Michelle MCBRIDE. Referral for physical and occupational therapy as well as assisted made. Order entered. Michelle to review referral with clinical property disposal manager and get back to this social organization professor. Proposed discharge date: 01/05/2021 PLAN: Discharge to home with spouse and home health services. Javon MARIN, DONALDO
[2021-01-02 13:50] VITALS: BP 123/66; PULSE 60; RESP 18; TEMP 36.6; O2SAT 96
[2021-01-02 17:20] VITALS: PULSE 60
[2021-01-02] MEDS: Acetaminophen 500 MG Tablet 1000 MG PO (21:02)
[2021-01-02] MEDS: Atorvastatin Calcium 10 MG Tablet 5 MG PO (21:02)
[2021-01-02] MEDS: Hydrocortisone 25 MG Suppository RC (21:02)
[2021-01-03 05:00] VITALS: BP 132/66; PULSE 78; RESP 16; TEMP 36.1; O2SAT 97
[2021-01-03 05:36] VITALS: PULSE 78
[2021-01-03] MEDS: Multivitamin (Healthy Eyes) Capsule 1 CAP PO ×2 (05:36→18:42)
[2021-01-03] MEDS: Metoprolol Tartrate 25 MG Tablet PO ×2 (05:36→18:43)
[2021-01-03] MEDS: Menthol/Lanolin/Calamine/Znox 113 GM Tube 1 APPLIC TOPICAL ×2 (05:37→18:40)
[2021-01-03] MEDS: Iron Polysaccharide Complex 150 MG CAPSULE PO (07:50)
[2021-01-03] MEDS: Multivitamins,Therapeutic Tablet 1 TABLET PO (07:50)
[2021-01-03] MEDS: Aspirin 81 MG TAB.CHEW PO (07:50)
[2021-01-03 13:35] VITALS: BP 120/54; PULSE 53; RESP 16; TEMP 36.3; O2SAT 96
--- NOTE | 2021-01-03 14:13 | MDS.RN ---
/Pain interview for eva 02/05/21 completed.
--- NOTE | 2021-01-03 14:18 | MDS.RN ---
Pain interview for eva 01/05/21 completed.
[2021-01-03 14:30] VITALS: PULSE 78; RESP 18; O2SAT 96
--- NOTE | 2021-01-03 16:07 | NURSING ---
PT STATED HE UPDATES FAMILY
[2021-01-03 18:43] VITALS: BP 120/54; PULSE 58
[2021-01-03 18:45] VITALS: PULSE 58
[2021-01-03] MEDS: Atorvastatin Calcium 10 MG Tablet 5 MG PO (20:33)
[2021-01-03] MEDS: Hydrocortisone 25 MG Suppository RC (20:33)
[2021-01-03] MEDS: Acetaminophen 500 MG Tablet 1000 MG PO (21:52)
[2021-01-04 05:00] VITALS: BP 140/70; PULSE 58; RESP 18; TEMP 36.7; O2SAT 96
[2021-01-04 05:17] VITALS: BP 140/70; PULSE 58
[2021-01-04] MEDS: Multivitamin (Healthy Eyes) Capsule 1 CAP PO ×2 (05:17→17:26)
[2021-01-04] MEDS: Metoprolol Tartrate 25 MG Tablet PO ×2 (05:17→17:26)
[2021-01-04] MEDS: Menthol/Lanolin/Calamine/Znox 113 GM Tube 1 APPLIC TOPICAL ×2 (05:18→17:26)
[2021-01-04] MEDS: Iron Polysaccharide Complex 150 MG CAPSULE PO (08:00)
[2021-01-04] MEDS: Multivitamins,Therapeutic Tablet 1 TABLET PO (08:00)
[2021-01-04] MEDS: Aspirin 81 MG TAB.CHEW PO (08:00)
--- NOTE | 2021-01-04 12:19 | CASEMGMT ---
Social Work BIMS and PHQ-9 completed for MDS assessment. Grace Harper, [employer]IV[employer]IAN LEAD PHP DEVELOPER
[2021-01-04 14:05] VITALS: BP 136/62; PULSE 74; RESP 16; TEMP 36.3; O2SAT 96
--- NOTE | 2021-01-04 14:23 | NURSING ---
urostomy system changed today, laney skin intact and free from redness, pt tolerated well
[2021-01-04 17:26] VITALS: PULSE 74
[2021-01-04] MEDS: Senna/Docusate Sodium 1 Tablet PO (17:26)
--- NOTE | 2021-01-04 18:28 | NURSING ---
FIREMAN came and got this nurse stating pt was bleeding. This nurse immediately assessed pt and noted a laceration to pt's coccyx that was steadily bleeding, area was cleansed and pressure was held until bleeding stopped. Calmoseptine, gauze square and mepilex applied to coccyx. Pt denies pain, when asked what had happened pt stated he was in a hurry to sit down while going to the bathroom and did not realize the metal hopper faucet was down and he scraped it. FIREMAN confirmed this story.
[2021-01-04] MEDS: Atorvastatin Calcium 10 MG Tablet 5 MG PO (21:09)
[2021-01-04 21:15] VITALS: PULSE 72; RESP 16; O2SAT 95
[2021-01-04] MEDS: Acetaminophen 500 MG Tablet 1000 MG PO (21:15)
[2021-01-05 05:00] VITALS: BP 139/69; PULSE 60; RESP 16; TEMP 36.6; O2SAT 97
[2021-01-05 06:07] VITALS: BP 139/69; PULSE 60
[2021-01-05] MEDS: Multivitamin (Healthy Eyes) Capsule 1 CAP PO (06:07)
[2021-01-05] MEDS: Metoprolol Tartrate 25 MG Tablet PO (06:07)
[2021-01-05] MEDS: Menthol/Lanolin/Calamine/Znox 113 GM Tube 1 APPLIC TOPICAL (06:12)
[2021-01-05 07:10] LABS: Absolute Lymphocyte Count 2.02 X10^3/uL (0.83-4.51); Absolute Neutrophil Count 4.3 X10^3/uL (2.0-7.7); Basophil% 1.2 % (0-1); Eosinophil# 0.13 X10^3/uL; Eosinophils% 1.5 % (0-5); Hematocrit 34.4 % (40-54); Hemoglobin 10.2 g/dL (13.0-16.5); Lymphocyte # 2.02 X10^3/ul (4.0); Lymphocyte % 23.8 % (19-41); Mean Corp Hgb Conc 29.7 g/dL (32-36); Mean Corpuscular Hgb 25.4 pg (27.0-32.0); Mean Corpuscular Volume 85.8 fL (80-94); Mean Platelet Vol. 11.2 fl (6.2-12.0); Monocyte# 1.85 X10^3/uL; Monocyte% 21.8 % (0-10); NRBC Flagged by Analyzer 0 % (0-5); Neutrophil # 4.32 X10^3/uL (2.7-7.7); Neutrophil % 51.1 % (47-70); POSITIVE DIFFERENTIAL YES; Platelet Count 161 K/mm3 (150-450); RBC Distribution Width CV 17.8 % (11.6-14.6); RBC Distribution Width SD 56.2 fl (35.1-43.9); Red Blood Count 4.01 M/mm3 (4.6-6.2); White Blood Count 8.5 K/mm3 (4.4-11.0)
[2021-01-05 07:22] LABS: Differential Indicated SCAN CRITERIA MET
[2021-01-05 07:24] LABS: Anion Gap 5 (5-15); BUN 34 mg/dL (7-18); Calcium,Total 8.8 mg/dL (8.5-10.1); Chloride 108 mmol/L (98-107); EST Glomerular Filtration Rate 21 mL/min (>60); Est Glom Filt Rate - Afr Amer 25 mL/min (>60); Glucose 81 mg/dL (74-106); Potassium 4.2 mmol/L (3.5-5.1); Sodium Level 138 mmol/L (136-145)
--- NOTE | 2021-01-05 07:47 | NURSING ---
labs faxed to DR Engle office at this time per request
[2021-01-05] MEDS: Iron Polysaccharide Complex 150 MG CAPSULE PO (07:48)
[2021-01-05] MEDS: Aspirin 81 MG TAB.CHEW PO (07:48)
[2021-01-05] MEDS: Multivitamins,Therapeutic Tablet 1 TABLET PO (07:48)
[2021-01-05 09:36] LABS: Differential Comment SCANNED
[2021-01-05 09:38] VITALS: BP 129/72; PULSE 77; RESP 18; TEMP 36.5; O2SAT 97
[2021-01-05 09:40] VITALS: PULSE 77; RESP 18; O2SAT 97
== END 2021-01-05 13:00 | disposition home health service (06) | DRG 690 ==
PROVIDERS: Internal Medicine Nephrology; Admitting Provider Family Medicine Geriatric Medicine; PCP Internal Medicine; Referring Provider Family Medicine Geriatric Medicine; Visit Provider Family Medicine Geriatric Medicine
DX: N13.6 Pyonephrosis (principal); B96.5 Pseudomonas (aeruginosa) (mallei) (pseudomallei) as the cause of diseases classified elsewhere; B95.61 Methicillin susceptible Staphylococcus aureus infection as the cause of diseases classified elsewhere; H35.30 Unspecified macular degeneration; I12.9 Hypertensive chronic kidney disease with stage 1 through stage 4 chronic kidney disease, or unspecified chronic kidney disease; N18.30 Chronic kidney disease, stage 3 unspecified; E78.5 Hyperlipidemia, unspecified; F41.9 Anxiety disorder, unspecified; C67.9 Malignant neoplasm of bladder, unspecified; N40.1 Benign prostatic hyperplasia with lower urinary tract symptoms; E66.9 Obesity, unspecified; Z87.891 Personal history of nicotine dependence; Z68.30 Body mass index [BMI] 30.0-30.9, adult; D50.9 Iron deficiency anemia, unspecified; N17.9 Acute kidney failure, unspecified; Z85.51 Personal history of malignant neoplasm of bladder; Z93.6 Other artificial openings of urinary tract status
CPT/HCPCS: 36415; 36430; 74018; 80048; 80069; 85014; 85018; 85025; 86850; 86900; 86901; 86920; 86922; 87635; 97110; 97116; 97162; 97166; 97530; 97535; 97802; J7040; P9016; A4216; J1940; U0002

== ENCOUNTER 2020-12-22 09:28 | Outpatient (CLI) | payer MEDICARE, OTHER, SELFPAY ==
[2020-12-22] VITALS (8 sets, daily range): BP systolic 103–134; BP diastolic 36–83; PULSE 71–93; RESP 16–18; TEMP 36.2–36.9; O2SAT 94–99; BMI 32.5
[2020-12-22] MEDS: Furosemide 20 MG/2 ML VIAL IV (13:33)
[2020-12-22] MEDS: 0.9% Saline Lock 10 ML Syringe IV (13:33)
== END 2020-12-22 16:45 | disposition skilled nursing facility (03) ==
LOC: MEDOUTP 09:29 → MS3 09:29
PROVIDERS: PCP Internal Medicine; Referring Provider Family Medicine Geriatric Medicine; Visit Provider Family Medicine Geriatric Medicine
DX: D64.9 Anemia, unspecified (principal)
CPT/HCPCS: 36415; 36430; 86850; 86900; 86901; 86920; 86922; J7040; P9016; A4216; J1940

== ENCOUNTER 2021-02-04 14:39 | Outpatient (RCR) | payer MEDICARE, OTHER, SELFPAY ==
[2020-12-22 11:54] VITALS: BMI 32.5
[2021-02-04 15:06] LABS: Hematocrit 33.1 % (40-54); Mean Corp Hgb Conc 30.2 g/dL (32-36); Mean Platelet Vol. 10.9 fl (6.2-12.0); Platelet Count 182 K/mm3 (150-450); RBC Distribution Width CV 17.1 % (11.6-14.6); RBC Distribution Width SD 53.5 fl (35.1-43.9); Red Blood Count 3.85 M/mm3 (4.6-6.2); White Blood Count 14.6 K/mm3 (4.4-11.0)
[2021-02-04 15:21] LABS: ALB/GLOB Ratio 0.8 RATIO (0.9-2.4); AST(SGOT) 12 U/L (15-37); Alanine Aminotransfer ALT/SGPT 12 U/L (16-61); Albumin, Serum 3.4 g/dL (3.2-5.0); Alkaline Phosphatase 59 U/L (45-117); Anion Gap 10 (5-15); BUN 33 mg/dL (7-18); BUN/Creat Ratio 8.8 RATIO (10-20); Calcium,Total 9.1 mg/dL (8.5-10.1); Chloride 101 mmol/L (98-107); Creatinine, Serum 3.73 mg/dL (0.70-1.30); EST Glomerular Filtration Rate 17 mL/min (>60); Est Glom Filt Rate - Afr Amer 20 mL/min (>60); Ferritin 215 ng/mL (26-388); Globulin 4.3 g/dL (2.2-4.2); Glucose 79 mg/dL (74-106); Iron 33 ug/dL (65-175); Iron Binding Capacity,Total 230 ug/dL (250-450); Protein, Total 7.7 g/dL (6.4-8.2); Sodium Level 138 mmol/L (136-145)
== END 2021-02-08 23:59 ==
LOC: HHLAB 14:39
PROVIDERS: PCP Internal Medicine; Referring Provider Internal Medicine; Visit Provider Internal Medicine
DX: N39.0 Urinary tract infection, site not specified (principal); B95.61 Methicillin susceptible Staphylococcus aureus infection as the cause of diseases classified elsewhere; I12.9 Hypertensive chronic kidney disease with stage 1 through stage 4 chronic kidney disease, or unspecified chronic kidney disease; N18.9 Chronic kidney disease, unspecified
CPT/HCPCS: 80053; 82728; 83540; 83550; 85027

== ENCOUNTER → 2021-02-12 10:36 | Outpatient (CLI) | payer MEDICARE, OTHER, SELFPAY ==
[2020-12-22 11:54] VITALS: BMI 32.5
--- NOTE | 2021-02-12 10:50 | RAD_ITS ---
PROCEDURE: Nephrostomy catheter exchange. DATE OF EXAMINATION: 02/12/2021. INDICATION: Male, 80 years old. Hydronephrosis. PHYSICIAN: Dr. BALWINDER Akbar FLUOROSCOPY TIME (if supplied): (48 seconds) minutes/seconds. 2 images were obtained. CONSENT: The risks, benefits and alternatives to the procedure were explained to the patient, and the patient agreed to the procedure and signed the consent. STERILE BARRIER TECHNIQUE: The following sterile barrier precautions were used during the procedure: hand hygiene; use of 2% chlorhexidine aseptic; use of a cap, mask, sterile gown, sterile gloves, sterile full body drape, and a large sterile sheet. PROCEDURE/TECHNIQUE: (All elements of maximal sterile barrier technique followed, including US elements as applicable) The risks, benefits, and alternatives to the procedure were explained to patient, and the patient agreed to the procedure and signed a consent form for the procedure. A timeout was performed to confirm the patient''s identity, the type of procedure, to be performed and the site of entry. The patient in the prone position. The overlying skin was prepped and draped in usual sterile fashion. Final anesthetic application, the indwelling right percutaneous nephrostomy catheter was exchanged over a guidewire. A new 8 Yi catheter was placed with the tip in the renal pelvis. The patient tolerated the procedure well. RAD/Nephrostomy Tube Exchange IMPRESSION: Successful exchange of the percutaneous nephrostomy catheter as described. The patient tolerated the procedure well. Electronically Signed: Jesus Carver MD at 12:24 EDT , Service support ,
== END ==
PROVIDERS: PCP Internal Medicine; Referring Provider Urology; Visit Provider Urology
DX: N13.1 Hydronephrosis with ureteral stricture, not elsewhere classified (principal); C67.8 Malignant neoplasm of overlapping sites of bladder; N40.1 Benign prostatic hyperplasia with lower urinary tract symptoms
CPT/HCPCS: 50435; Q9967

== ENCOUNTER 2021-02-14 12:59 | Inpatient (IN) | payer MEDICARE, OTHER, SELFPAY ==
[2020-12-22 11:54] VITALS: BMI 32.5
[2021-02-14 13:00] VITALS: BP 117/55; PULSE 59; RESP 16; TEMP 35.7; O2SAT 96; BMI 32.1
--- NOTE | 2021-02-14 13:42 | EX.ED.DYSGE1 ---
HPI History of Present Illness Chief Complaint: Constipation PFSH PFS Medical History (Updated 12/10/20 @ 19:[address] 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 Primary hypertension Pure hypercholesterolemia Urethral stricture Home Medications simvastatin 10 mg PO QHS 05/01/16 [History Last Taken 12/10/19 22:30] aspirin 81 mg PO DAILY@0800 05/01/19 [History Last Taken 08/17/20] multivitamin 1 ea PO DAILY 12/11/19 [History Last Taken 12/11/19] vit C,M-Fs-iegiy-lutein-zeaxan 1 ea PO BID 12/11/19 [History Last Taken 12/11/19 08:30] lorazepam 0.5 mg PO DAILY PRN PRN 11/30/20 [History Last Taken Unknown] ondansetron 8 mg PO Q6H PRN 11/30/20 [History Last Taken Unknown] menthol-zinc oxide 1 applic TOPICAL BID 12/10/20 [History Last Taken Unknown] metoprolol tartrate 25 mg PO BID 12/10/20 [History Last Taken Unknown] Emollient Combination No.72 [Eucerin Intensive Repair] 1 applic TOPICAL HS lotion 01/02/21 [Rx Last Taken Unknown] acetaminophen 1,000 mg PO Q6H PRN PRN tablet 01/02/21 [Rx Last Taken Unknown] polysaccharide iron complex 150 mg PO DAILYCM #30 capsule 01/02/21 [Rx Last Taken Unknown] simethicone 80 mg PO TIDPC PRN #90 tablet 01/02/21 [Rx Last Taken Unknown] Allergy/AdvReac Type Severity Reaction Status Date / Time atenolol AdvReac hypotension Verified 02/14/21 13:01 tamsulosin [From Flomax] AdvReac PT UNSURE Verified 02/14/21 13:01 OF REACTION Surgical History History of cystoscopy Social History (Updated 12/06/19 @ 18:02 by Miguelito WARD, PA) Smoking Status: Former smoker alcohol intake: current alcohol intake frequency: 0-2 drinks per day Alcohol type: wine EXAM Physical Exam Const Vital Signs: 02/14/21 13:00 Temperature 96.2 F L Temperature Source Temporal Pulse Rate 59 L Respiratory Rate 16 Blood Pressure 117/55 L Blood Pressure Mean 75 Pulse Ox 96 Oxygen Delivery Method Room Air Discharge Plan Triage Chief Complaint: Constipation ED Provider: Jude Eavns Dx/Rx/DC Orders Prescriptions: No Action simvastatin 10 MG tablet 10 mg PO QHS RF: 0 aspirin 81 MG tablet,chewable 81 mg PO DAILY@0800 RF: 0 multivitamin 1 EACH tablet 1 ea PO DAILY RF: 0 vit C,B-Nb-lndzs-lutein-zeaxan 1 EACH capsule 1 ea PO BID RF: 0 lorazepam 0.5 MG tablet 0.5 mg PO DAILY PRN PRN (Reason: Anxiety) RF: 0 ondansetron 8 MG tablet,disintegrating 8 mg PO Q6H PRN (Reason: Nausea) RF: 0 metoprolol tartrate 25 MG tablet 25 mg PO BID RF: 0 menthol-zinc oxide 1 APPLIC ointment 1 applic TOPICAL BID RF: 0 polysaccharide iron complex 150 MG capsule 150 mg PO DAILYCM Qty: 30 RF: 0 acetaminophen 500 MG tablet 1,000 mg PO Q6H PRN PRN (Reason: Pain Score 1-10) RF: 0 Emollient Combination No.72 [Eucerin Intensive Repair] 1 APPLIC lotion 1 applic TOPICAL HS RF: 0 simethicone 80 MG tablet 80 mg PO TIDPC PRN (Reason: bettie abd.) Qty: 90 RF: 0 Primary Care Provider: Kim Torres
[2021-02-14] MEDS: 0.9% Normal Saline 1,000 ML 1000 ML IV (13:52)
[2021-02-14 14:12] LABS: Absolute Lymphocyte Count 1.21 X10^3/uL (0.83-4.51); Absolute Neutrophil Count 18.1 X10^3/uL (2.0-7.7); Basophil# 0.07 X10^3/uL; Basophil% 0.3 % (0-1); Eosinophil# 0.06 X10^3/uL; Eosinophils% 0.2 % (0-5); Hematocrit 33.8 % (40-54); Hemoglobin 10.3 g/dL (13.0-16.5); Lymphocyte # 1.21 X10^3/ul (0.83-4.51); Lymphocyte % 4.8 % (19-41); Mean Corp Hgb Conc 30.5 g/dL (32-36); Mean Corpuscular Hgb 25.6 pg (27.0-32.0); Mean Corpuscular Volume 83.9 fL (80-94); Mean Platelet Vol. 11.2 fl (6.2-12.0); Monocyte# 5.57 X10^3/uL; Monocyte% 22.2 % (0-10); NRBC Flagged by Analyzer 0 % (0-5); Neutrophil # 18.06 X10^3/uL (2.7-7.7); Neutrophil % 71.8 % (47-70); POSITIVE DIFFERENTIAL YES; Platelet Count 203 K/mm3 (150-450); RBC Distribution Width SD 48.8 fl (35.1-43.9); Red Blood Count 4.03 M/mm3 (4.6-6.2); White Blood Count 25.1 K/mm3 (4.4-11.0)
[2021-02-14 14:15] LABS: Differential Indicated SCAN CRITERIA MET
[2021-02-14 14:27] LABS: ALB/GLOB Ratio 0.8 RATIO (0.9-2.4); AST(SGOT) 9 U/L (15-37); Alanine Aminotransfer ALT/SGPT 10 U/L (16-61); Albumin, Serum 3.3 g/dL (3.2-5.0); Alkaline Phosphatase 57 U/L (45-117); Anion Gap 10 (5-15); BUN 46 mg/dL (7-18); BUN/Creat Ratio 9.6 RATIO (10-20); Calcium,Total 9.3 mg/dL (8.5-10.1); Chloride 102 mmol/L (98-107); Creatinine, Serum 4.81 mg/dL (0.70-1.30); EST Glomerular Filtration Rate 12 mL/min (>60); Est Glom Filt Rate - Afr Amer 15 mL/min (>60); Estimated Creatinine Clearance 12.83 ml/min; Globulin 4.2 g/dL (2.2-4.2); Glucose 117 mg/dL (74-106); Potassium 3.4 mmol/L (3.5-5.1); Protein, Total 7.5 g/dL (6.4-8.2); Sodium Level 139 mmol/L (136-145)
[2021-02-14 14:31] LABS: Differential Comment SCANNED
--- NOTE | 2021-02-14 14:51 | CT_ITS ---
STUDY: CT ABDOMEN AND PELVIS WITHOUT CONTRAST REASON FOR EXAM: Male, 80 years old. Abdominal pain. Constipation. Endstage bladder cancer. RADIATION DOSAGE (If Supplied By Facility): CTDIvol = ( 20.46 ) mGy, DLP = ( 1048.82 ) mGycm TECHNIQUE: Transaxial images were obtained from the dome of the diaphragm to the symphysis pubis without oral contrast, and without intravenous contrast. Sagittal and coronal images were reconstructed. Individualized dose optimization techniques were used for this CT. COMPARISON: Comparison is made with prior study dated 09/25/2020. FINDINGS: Small right pleural effusion. There is a new 1.7 cm x 1.9 cm cavitated nodule in the left lower lobe. I also suspect a 3.3 cm by 2.3 cm nodule in the medial aspect of the left lower lobe adjacent to the heart border. The visualized portions of the heart are within normal limits. Normal liver. Normal gallbladder and extrahepatic biliary system. Normal spleen. Normal pancreas. Normal bilateral adrenal glands. A right-sided percutaneous nephrostomy catheter is seen. No evidence of hydronephrosis. A left-sided double-J stent catheters present. There is a marked degree of atrophy of the left kidney. Marked degree of left hydronephrosis. Normal visualized stomach. Normal small intestine. Normal colon. The appendix is visualized and appears normal. Normal abdominal aorta. Normal inferior vena cava. Normal retroperitoneum. The patient is status post resection of the bladder. An ileal loop is seen in the right anterior abdominal wall. Postoperative changes are seen in the peritoneal fat in the lower abdomen and pelvis. There has been progression of the soft tissue density in the lower abdominal and peritoneal fat. Metastatic deposit should be ruled out. Normal abdominal wall. There are degenerative changes of the visualized lumbar spine. CT/Abdomen/Pelvis without Cont IMPRESSION: Moderate degree of the left hydronephrosis and left hydroureter. Double-J stent catheter is seen. Right-sided nephrostomy catheter is present. No significant hydronephrosis seen on the right side. Progressive soft tissue density in the pelvis as compared to prior study. Status post resection of the urinary bladder with an ileal loop in the right anterior abdominal wall. New right pleural effusion with left pulmonary nodules. Electronically Signed: Jesus Carver MD at 15:42 EDT , Service support ,
--- NOTE | 2021-02-14 16:44 | RAD_ITS ---
STUDY: X-RAY CHEST REASON FOR EXAM: Male, 80 years old. Lung nodule TECHNIQUE: Single AP portable view of the chest. COMPARISON: December 01, 2020 FINDINGS: There are patchy nodular lower lung airspace increased opacities. There is blunting of the costophrenic angles compatible with small pleural effusions. There is moderate cardiac enlargement. Normal mediastinum and alvino. Normal visualized pulmonary arteries. Normal visualized aortic arch and descending thoracic aorta. There is demineralization of the osseous structures. Normal visualized ribs, clavicles, and shoulders. There is no demonstrated abnormality of the visualized soft tissue structures of the upper abdomen. RAD/Chest 1 View (Portable) IMPRESSION: Lower lung nodular airspace infiltrates and small effusion. Electronically Signed: Mingo Lemus MD at 17:51 EDT , Service support ,
[2021-02-14 16:48] LABS: Mucous, Urine 0 SEEN /hpf (<or=2+); Squamous Epithelial Cells - UA 0 SEEN /hpf (0-5)
[2021-02-14 16:51] VITALS: BP 114/71; PULSE 92; RESP 16; O2SAT 96
[2021-02-14 16:54] LABS: International Normalized Ratio 1.3; Prothrombin Time (Protime)PT. 15.3 SECONDS (11.7-14.9)
[2021-02-14 16:57] LABS: Color, Urine Yellow (Yellow); Glucose, Dipstick Normal (Normal); Ketone-Dipstick Negative (Negative); Leukocyte Esterase-Dipstick 500 /ul (Negative); Nitrite-Dipstick Negative (Negative); Occult Blood-Urine 150 /ul (Negative); Protein-Dipstick 100 mg/dl (Negative); Specific Gravity, Urine 1.015 (1.002-1.030); Urine Bilirubin Dipstick Negative (Negative); Urine Clarity Cloudy (Clear); Urine Urobilinogen Normal (Normal)
[2021-02-14 17:26] LABS: Coarse Granular Cast 0-5 SEEN /lpf (0-5 /lpf); Fine Granular Cast- Urine 0-5 SEEN /lpf (0-5)
[2021-02-14 17:29] LABS: Red Blood Cells-Urine 10-25 SEEN /hpf (0-5); White Blood Cells 50-100 SEEN /hpf (0-5)
[2021-02-14 17:31] LABS: Bacteria 1+ /hpf (None Seen); Yeast-Urine 2+ /hpf (None Seen)
[2021-02-14 17:35] VITALS: BP 130/67; PULSE 86; RESP 16; O2SAT 96
--- NOTE | 2021-02-14 17:36 | PCM.HP.STD ---
HPI - General HPI Narrative SUSANNAH CALIXTO, is a 80 M who presents to the emergency room with nausea vomiting and abdominal cramps appears to have an ileus pattern on his CAT scan constipation as well. CT scan demonstrates a large left kidney with dilated, right nephrostomy tube is a good place. He has a elevated white blood count. He also has multiple lung nodules very concerning for metastatic disease he was treated for aggressive lymph node positive bladder cancer in September and appears to have recurrence with mets. His prognosis was poor I discussed this with the patient at this point we wanted bring him in the hospital given comfort measures may consider hospice involvement and negative placement of nephrostomy tube in the left side to improve his kidney drainage from the left kidney since he has poor drainage from his ileal conduit. 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 Primary hypertension Pure hypercholesterolemia Urethral stricture Home Medications simvastatin 10 mg PO QHS 05/01/16 [History Last Taken 12/10/19 22:30] aspirin 81 mg PO DAILY@0800 05/01/19 [History Last Taken 08/17/20] multivitamin 1 ea PO DAILY 12/11/19 [History Last Taken 12/11/19] vit C,J-Sj-evbse-lutein-zeaxan 1 ea PO BID 12/11/19 [History Last Taken 12/11/19 08:30] lorazepam 0.5 mg PO DAILY PRN PRN 11/30/20 [History Last Taken Unknown] ondansetron 8 mg PO Q6H PRN 11/30/20 [History Last Taken Unknown] menthol-zinc oxide 1 applic TOPICAL BID 12/10/20 [History Last Taken Unknown] metoprolol tartrate 25 mg PO BID 12/10/20 [History Last Taken Unknown] Emollient Combination No.72 [Eucerin Intensive Repair] 1 applic TOPICAL HS lotion 01/02/21 [Rx Last Taken Unknown] acetaminophen 1,000 mg PO Q6H PRN PRN tablet 01/02/21 [Rx Last Taken Unknown] polysaccharide iron complex 150 mg PO DAILYCM #30 capsule 01/02/21 [Rx Last Taken Unknown] simethicone 80 mg PO TIDPC PRN #90 tablet 01/02/21 [Rx Last Taken Unknown] Allergy/AdvReac Type Severity Reaction Status Date / Time atenolol AdvReac hypotension Verified 02/14/21 13:01 tamsulosin [From Flomax] AdvReac PT UNSURE Verified 02/14/21 13:01 OF REACTION Surgical History (Updated 02/14/21 @ 13:57 by Zulema Lizarraga) History of cystoscopy History of urostomy Social History (Updated 12/06/19 @ 18:02 by Miguelito WARD, PA) Smoking Status: Former smoker alcohol intake: current alcohol intake frequency: 0-2 drinks per day Alcohol type: wine ROS Constitutional Constitutional: Reports change in weight and weakness Gastrointestinal Gastrointestinal: Reports abdominal pain and constipation Integumentary Integumentary: Reports dry skin Vital Signs Vital Signs Vital Signs: 02/14/21 13:00 02/14/21 16:51 Temperature 96.2 F L Temperature Source Temporal Pulse Rate 59 L 92 Respiratory Rate 16 16 Blood Pressure 117/55 L 114/71 Blood Pressure Mean 75 85 Pulse Ox 96 96 Oxygen Delivery Method Room Air Room Air Physical Exam Narrative 80-year-old male laying in stretcher he is got a conduit in place, was nice and healthy and pink poor urine output from the ileal conduit. Const alert and oriented x3 HEENT normocephalic Eyes PERRL Neck supple Resp normal respiratory effort Cardio regular rate and regular rhythm GI soft to palpation Extremity normal capillary refill and no clubbing, cyanosis or edema Skin Lesions: no lesions Rashes: no rashes Neuro CN's II-XII intact bilaterally Psych affect normal Appearance: appropriate Lab / Micro Data Result Diagrams: 02/14/21 13:52 02/14/21 13:52 Labs: Laboratory Results - last 24 hr 02/14/21 02/14/21 02/14/21 13:52 13:52 13:52 WBC 25.1 H RBC 4.03 L Hgb 10.3 L Hct 33.8 L MCV 83.9 MCH 25.6 L MCHC 30.5 L RDW Std Deviation 48.8 H RDW Coeff of Jeff 16.0 H Plt Count 203 MPV 11.2 Immature Gran % (Auto) 0.700 Neut % (Auto) 71.8 H Lymph % (Auto) 4.8 L [place] % (Auto) 22.2 H Eos % (Auto) 0.2 Baso % (Auto) 0.3 Absolute Neuts (auto) 18.1 H Absolute Lymphs (auto) 1.21 Nucleated RBC % 0 Differential Comment SCANNED Diff Path Review May foll PT 15.3 H INR 1.3 Sodium 139 Potassium 3.4 L Chloride 102 Carbon Dioxide 27.0 Anion Gap 10 BUN 46 H Creatinine 4.81 H Estim Creat Clear Calc 12.83 Est GFR (MDRD) Af Amer 15 L Est GFR (MDRD) Non-Af 12 L BUN/Creatinine Ratio 9.6 L Glucose 117 H Calcium 9.3 Total Bilirubin 0.50 AST 9 L ALT 10 L Alkaline Phosphatase 57 Total Protein 7.5 Albumin 3.3 Globulin 4.2 Albumin/Globulin Ratio 0.8 L Urine Color Urine Clarity Urine pH Ur Specific [place] Urine Protein Urine Glucose (UA) Urine Ketones Urine Occult Blood Urine Nitrite Urine Bilirubin Urine Urobilinogen Ur Leukocyte Esterase Urine RBC Urine WBC Ur Squamous Epith Cells Urine Bacteria Fine Granular Casts Coarse Granular Casts Urine Mucus Urine Yeast 02/14/21 16:34 WBC RBC Hgb Hct MCV MCH MCHC RDW Std Deviation RDW Coeff of Jeff Plt Count MPV Immature Gran % (Auto) Neut % (Auto) Lymph % (Auto) [place] % (Auto) Eos % (Auto) Baso % (Auto) Absolute Neuts (auto) Absolute Lymphs (auto) Nucleated RBC % Differential Comment Diff Path Review PT INR Sodium Potassium Chloride Carbon Dioxide Anion Gap BUN Creatinine Estim Creat Clear Calc Est GFR (MDRD) Af Amer Est GFR (MDRD) Non-Af BUN/Creatinine Ratio Glucose Calcium Total Bilirubin AST ALT Alkaline Phosphatase Total Protein Albumin Globulin Albumin/Globulin Ratio Urine Color Yellow Urine Clarity Cloudy Urine pH 5.0 Ur Specific [place] 1.015 Urine Protein 100 H Urine Glucose (UA) Normal Urine Ketones Negative Urine Occult Blood 150 H Urine Nitrite Negative Urine Bilirubin Negative Urine Urobilinogen Normal Ur Leukocyte Esterase 500 H Urine RBC 10-25 SEEN Urine WBC 50-100 SEEN Ur Squamous Epith Cells 0 SEEN Urine Bacteria 1+ Fine Granular Casts 0-5 SEEN Coarse Granular Casts 0-5 SEEN Urine Mucus 0 SEEN Urine Yeast 2+ Radiology Impression Abdomen/Pelvis CT 02/14/21 14:51 IMPRESSION: Moderate degree of the left hydronephrosis and left hydroureter. Double-J stent catheter is seen. Right-sided nephrostomy catheter is present. No significant hydronephrosis seen on the right side. Progressive soft tissue density in the pelvis as compared to prior study. Status post resection of the urinary bladder with an ileal loop in the right anterior abdominal wall. New right pleural effusion with left pulmonary nodules. Electronically Signed: Jesus Carver MD at 15:42 EDT , Service support , Assessment & Plan Assessment/Plan (1) Bladder cancer: PLAN: Recommend patient is to be admitted to hospital we need to work on his constipation moving his bowels, I will order a nephrostomy tube to be placed in the left side to help with drainage of the left kidney. We may need to involve comfort care measures for his advanced disease. Spoke to the patient regarding the situation is to be admitted to the hospital for further care.
[2021-02-14 17:46] VITALS: BP 130/67; PULSE 86; RESP 16; TEMP 35.7; O2SAT 96
--- NOTE | 2021-02-14 17:51 | PCM.HP.STD ---
Documented by User: Alison Otero NP, [employer] 02/14/21 18:14 HPI - General HPI Narrative SUSANNAH CALIXTO, is a 80 M who presents to the emergency room due to constipation. Patient states he has not had a bowel movement in 4 days. He complains of left lower quadrant abdominal pain. He denies fever, chills. Reports nausea and vomiting with 3 episodes of emesis yesterday. Patient has a complicated recent history with bladder cancer diagnosis September 2020. He states he has had several complications since that time. Patient underwent cystectomy and ileal conduit September 2020 followed by right-sided percutaneous nephrostomy tube placement. Patient states he was told due to his functional decline and weakness, he would not be a candidate to pursue chemotherapy. Palliative/hospice discussed with patient and he is amenable pending treatment of acute processes. 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 Primary hypertension Pure hypercholesterolemia Urethral stricture Home Medications simvastatin 10 mg PO QHS 05/01/16 [History Last Taken 02/13/21] aspirin 81 mg PO DAILY@0800 05/01/19 [History Last Taken 02/13/21] multivitamin 1 ea PO DAILY 12/11/19 [History Last Taken 02/13/21] vit C,Z-Oo-vvbuh-lutein-zeaxan 1 ea PO BID 12/11/19 [History Last Taken 02/13/21] lorazepam 0.5 mg PO DAILY PRN PRN 11/30/20 [History Last Taken Unknown] ondansetron 8 mg PO Q6H PRN 11/30/20 [History Last Taken Unknown] metoprolol tartrate 25 mg PO BID 12/10/20 [History Last Taken 02/13/21] acetaminophen 1,000 mg PO Q6H PRN PRN tablet 01/02/21 [Rx Last Taken 02/13/21] simethicone 80 mg PO TIDPC PRN #90 tablet 01/02/21 [Rx Last Taken Unknown] emollient combination no.72 [Eucerin Intensive Repair] 1 ea TOPICAL QHS 02/14/21 [History Last Taken Unknown] Allergy/AdvReac Type Severity Reaction Status Date / Time atenolol AdvReac hypotension Verified 02/14/21 19:01 tamsulosin [From Flomax] AdvReac PT UNSURE Verified 02/14/21 19:01 OF REACTION Family History (Updated 02/14/21 @ 17:57 by Alison Otero [employer]N, [employer]) Mother No problems noted. Father No problems noted. Surgical History (Updated 02/14/21 @ 19:32 by Rachel Kitchen) History of appendectomy History of cystoscopy History of urostomy Social History (Updated 12/06/19 @ 18:02 by Miguelito WARD, SYLVIA) Smoking Status: Former smoker alcohol intake: current alcohol intake frequency: 0-2 drinks per day Alcohol type: wine ROS Constitutional Constitutional: Reports fatigue; Denies change in weight, chills, fever(s) or weakness Cardiovascular Cardiovascular: Denies chest pain, edema, lightheadedness, palpitations or syncope Respiratory/Chest Respiratory/Chest: Denies cough, dyspnea, productive cough, shortness of breath at rest, shortness of breath with exertion or wheezing Gastrointestinal Gastrointestinal: Reports abdominal pain, constipation, nausea and vomiting; Denies diarrhea Genitourinary Genitourinary: Reports other Details: Ileal conduit in place ; Denies burning urination, difficulty urinating, dysuria, hematuria, urinary frequency, urinary incontinence or urinary urgency Musculoskeletal Musculoskeletal: Denies back pain or joint pain Neurologic Neurologic: Denies abnormal speech, confusion, dizziness, focal weakness, numbness, paresthesias, seizure-like activity or syncope Psychiatric Psychiatric: Denies anxiety or depression Hematologic/Lymphatic Hematologic/Lymphatic: Denies anemia, easy bleeding or easy bruising Allergic/Immunologic Allergic/Immunologic: Denies hives or asthma Vital Signs Vital Signs Vital Signs: 02/14/21 13:00 02/14/21 16:51 02/14/21 17:35 Temperature 96.2 F L Temperature Source Temporal Pulse Rate 59 L 92 86 Respiratory Rate 16 16 16 Blood Pressure 117/55 L 114/71 130/67 H Blood Pressure Mean 75 85 88 Pulse Ox 96 96 96 Oxygen Delivery Method Room Air Room Air Room Air 02/14/21 17:46 Temperature 96.2 F L Temperature Source Temporal Pulse Rate 86 Respiratory Rate 16 Blood Pressure 130/67 H Blood Pressure Mean 88 Pulse Ox 96 Oxygen Delivery Method Room Air Physical Exam Const alert, oriented x3 and no apparent distress Orientation / Consciousness: awake, oriented to person, oriented to place and oriented to time HEENT normocephalic and moist oral mucous membranes Eyes PERRL, EOMs intact bilaterally and conjunctivae normal Neck no lymphadenopathy Resp normal respiratory effort and clear to auscultation bilaterally Cardio regular rate, regular rhythm and no murmurs Peripheral Pulses: pulses 2+ throughout GI normal to inspection, nondistended, normoactive bowel sounds Inspection: abdominal distention Palpation: tender LLQ Extremity normal to inspection Skin no rashes or lesions noted Lesions: no lesions Rashes: no rashes Trauma: no lacerations or abrasions Neuro oriented x3 Sensorium / Orientation: awake and alert Psych affect normal Lab / Micro Data Result Diagrams: 02/14/21 13:52 02/14/21 13:52 Labs: Laboratory Results - last 24 hr 02/14/21 02/14/21 02/14/21 13:52 13:52 13:52 WBC 25.1 H RBC 4.03 L Hgb 10.3 L Hct 33.8 L MCV 83.9 MCH 25.6 L MCHC 30.5 L RDW Std Deviation 48.8 H RDW Coeff of Jeff 16.0 H Plt Count 203 MPV 11.2 Immature Gran % (Auto) 0.700 Neut % (Auto) 71.8 H Lymph % (Auto) 4.8 L [place] % (Auto) 22.2 H Eos % (Auto) 0.2 Baso % (Auto) 0.3 Absolute Neuts (auto) 18.1 H Absolute Lymphs (auto) 1.21 Nucleated RBC % 0 Differential Comment SCANNED Diff Path Review February foll PT 15.3 H INR 1.3 Sodium 139 Potassium 3.4 L Chloride 102 Carbon Dioxide 27.0 Anion Gap 10 BUN 46 H Creatinine 4.81 H Estim Creat Clear Calc 12.83 Est GFR (MDRD) Af Amer 15 L Est GFR (MDRD) Non-Af 12 L BUN/Creatinine Ratio 9.6 L Glucose 117 H Calcium 9.3 Total Bilirubin 0.50 AST 9 L ALT 10 L Alkaline Phosphatase 57 Total Protein 7.5 Albumin 3.3 Globulin 4.2 Albumin/Globulin Ratio 0.8 L Urine Color Urine Clarity Urine pH Ur Specific [place] Urine Protein Urine Glucose (UA) Urine Ketones Urine Occult Blood Urine Nitrite Urine Bilirubin Urine Urobilinogen Ur Leukocyte Esterase Urine RBC Urine WBC Ur Squamous Epith Cells Urine Bacteria Fine Granular Casts Coarse Granular Casts Urine Mucus Urine Yeast 02/14/21 16:34 WBC RBC Hgb Hct MCV MCH MCHC RDW Std Deviation RDW Coeff of Jeff Plt Count MPV Immature Gran % (Auto) Neut % (Auto) Lymph % (Auto) [place] % (Auto) Eos % (Auto) Baso % (Auto) Absolute Neuts (auto) Absolute Lymphs (auto) Nucleated RBC % Differential Comment Diff Path Review PT INR Sodium Potassium Chloride Carbon Dioxide Anion Gap BUN Creatinine Estim Creat Clear Calc Est GFR (MDRD) Af Amer Est GFR (MDRD) Non-Af BUN/Creatinine Ratio Glucose Calcium Total Bilirubin AST ALT Alkaline Phosphatase Total Protein Albumin Globulin Albumin/Globulin Ratio Urine Color Yellow Urine Clarity Cloudy Urine pH 5.0 Ur Specific [place] 1.015 Urine Protein 100 H Urine Glucose (UA) Normal Urine Ketones Negative Urine Occult Blood 150 H Urine Nitrite Negative Urine Bilirubin Negative Urine Urobilinogen Normal Ur Leukocyte Esterase 500 H Urine RBC 10-25 SEEN Urine WBC 50-100 SEEN Ur Squamous Epith Cells 0 SEEN Urine Bacteria 1+ Fine Granular Casts 0-5 SEEN Coarse Granular Casts 0-5 SEEN Urine Mucus 0 SEEN Urine Yeast 2+ Radiology Impression Abdomen/Pelvis CT 02/14/21 14:51 IMPRESSION: Moderate degree of the left hydronephrosis and left hydroureter. Double-J stent catheter is seen. Right-sided nephrostomy catheter is present. No significant hydronephrosis seen on the right side. Progressive soft tissue density in the pelvis as compared to prior study. Status post resection of the urinary bladder with an ileal loop in the right anterior abdominal wall. New right pleural effusion with left pulmonary nodules. Electronically Signed: Jesus Carver MD at 15:42 EDT , Service support , Assessment & Plan Assessment/Plan (1) Constipation: PLAN: 1. Constipation, ileus-enema ordered by ED. N.p.o. for now. IV fluids. 2. Acute kidney injury on chronic kidney disease stage IV-IV fluids, trend BMP. 3. Acute UTI, complicated-IV Zosyn. Cultures pending. 4. History of bladder cancer status post cystectomy, ileal conduit placement and right-sided nephrostomy tube placement-urology consulted. Plan for left-sided nephrostomy tube placement. CT of abdomen pelvis shows pelvic mass and pulmonary nodules. Progression of soft tissue density in the lower abdomen. Patient amenable to plan of/hospice following treatment of acute processes. Case management consult. 5. Hypertension-continue metoprolol. 6. Hyperlipidemia-continue statin. 7. Anxiety-on as needed Ativan. DVT prophylaxis-heparin subcu CODE STATUS: Discussed in length with patient including differences between full code, DNR CCA and DNR CC. Patient elects DNR CCA no intubation CODE STATUS. This patient was seen by YASMEEN Robin under the supervision of Dr. Higginbotham. Documented by User: Dr. 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 Primary hypertension Pure hypercholesterolemia Urethral stricture Home Medications simvastatin 10 mg PO QHS 05/01/16 [History Last Taken 02/13/21] aspirin 81 mg PO DAILY@0800 05/01/19 [History Last Taken 02/13/21] multivitamin 1 ea PO DAILY 12/11/19 [History Last Taken 02/13/21] vit C,Z-Rq-vpurk-lutein-zeaxan 1 ea PO BID 12/11/19 [History Last Taken 02/13/21] lorazepam 0.5 mg PO DAILY PRN PRN 11/30/20 [History Last Taken Unknown] ondansetron 8 mg PO Q6H PRN 11/30/20 [History Last Taken Unknown] metoprolol tartrate 25 mg PO BID 12/10/20 [History Last Taken 02/13/21] acetaminophen 1,000 mg PO Q6H PRN PRN tablet 01/02/21 [Rx Last Taken 02/13/21] simethicone 80 mg PO TIDPC PRN #90 tablet 01/02/21 [Rx Last Taken Unknown] emollient combination no.72 [Eucerin Intensive Repair] 1 ea TOPICAL QHS 02/14/21 [History Last Taken Unknown] Allergy/AdvReac Type Severity Reaction Status Date / Time atenolol AdvReac hypotension Verified 02/14/21 19:01 tamsulosin [From Flomax] AdvReac PT UNSURE Verified 02/14/21 19:01 OF REACTION Family History (Updated 02/14/21 @ 17:57 by Alison Otero [employer]N, [employer]) Mother No problems noted. Father No problems noted. Surgical History (Updated 02/14/21 @ 19:32 by Rachel Kitchen) History of appendectomy History of cystoscopy History of urostomy Social History (Updated 12/06/19 @ 18:02 by SYLVIA Saavedra) Smoking Status: Former smoker alcohol intake: current alcohol intake frequency: 0-2 drinks per day Alcohol type: wine Lab / Micro Data Result Diagrams: 02/14/21 13:52 02/14/21 13:52 Addendum Addendum: Dr. Higginbotham: I personally reviewed the chart and examined the patient, and agree with the above findings. 80-year-old male who was diagnosed with bladder cancer in September and had a bladder resection as well as a right nephrostomy tube and urostomy presents to the hospital with constipation. He has not had a bowel movement in 4 days. On admission was also found to have an elevated white count and a UA from the right nephrostomy tube demonstrates a UTI. He was started on antibiotics in the ER, and had a CT scan of his abdomen and pelvis which demonstrated new left pulmonary nodules as well as right pleural effusion and progressive soft tissue density in the pelvis consistent with metastasis. We will continue IV antibiotics and placed on a bowel regimen, and I did have a 20-minute discussion on advanced care planning with him and his about the options going forward. Visit Charges Inpatient E&M: 02041 Init Hosp L3 Procedures Hospitalists Procedures: 60899 Advncd Care Plan 30 Min
--- NOTE | 2021-02-14 17:59 | ED.VIS.GI ---
HPI HPI - GI History of Present Illness Chief Complaint: Constipation Narrative Narrative: 80-year-old male with history of bladder cancer, right nephrostomy tube, left urostomy tube presenting with constipation. He states is been for leg since he had a bowel movement. He states he has some abdominal cramping and has passed some flatus. Patient notes that his left urostomy tube does not put out much urine in his right nephrostomy tube does. He is not had fever or chills. He does not have nausea or vomiting. 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 Patient has not been on any chemotherapy. Patient denies any fever, chills. 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 Primary hypertension Pure hypercholesterolemia Urethral stricture Home Medications simvastatin 10 mg PO QHS 05/01/16 [History Last Taken 02/13/21] aspirin 81 mg PO DAILY@0800 05/01/19 [History Last Taken 02/13/21] multivitamin 1 ea PO DAILY 12/11/19 [History Last Taken 02/13/21] vit C,B-Nu-gzfvn-lutein-zeaxan 1 ea PO BID 12/11/19 [History Last Taken 02/13/21] lorazepam 0.5 mg PO DAILY PRN PRN 11/30/20 [History Last Taken Unknown] ondansetron 8 mg PO Q6H PRN 11/30/20 [History Last Taken Unknown] metoprolol tartrate 25 mg PO BID 12/10/20 [History Last Taken 02/13/21] acetaminophen 1,000 mg PO Q6H PRN PRN tablet 01/02/21 [Rx Last Taken 02/13/21] simethicone 80 mg PO TIDPC PRN #90 tablet 01/02/21 [Rx Last Taken Unknown] emollient combination no.72 [Eucerin Intensive Repair] 1 ea TOPICAL QHS 02/14/21 [History Last Taken Unknown] Allergy/AdvReac Type Severity Reaction Status Date / Time atenolol AdvReac hypotension Verified 02/14/21 13:01 tamsulosin [From Flomax] AdvReac PT UNSURE Verified 02/14/21 13:01 OF REACTION Family History (Updated 02/14/21 @ 17:57 by Alison Otero TELEPHONE CLAIMS REPRESENTATIVE, TELEPHONE CLAIMS REPRESENTATIVE-C) Mother No problems noted. Father No problems noted. Surgical History History of cystoscopy History of urostomy Social History (Updated 12/06/19 @ 18:02 by Miguelito WARD, PA) Smoking Status: Former smoker alcohol intake: current alcohol intake frequency: 0-2 drinks per day Alcohol type: wine ROS ROS ED Constitutional Constitutional ED: Denies chills, fever(s) or sweats Eyes Eyes: Denies blurry vision or change in vision ENT ENT ED: Denies ear pain, rhinorrhea or sore throat Cardiovascular Cardiovascular: Denies chest pain, palpitations or racing heartbeat Respiratory/Chest Respiratory/Chest: Denies cough, dyspnea or sputum Gastrointestinal Gastrointestinal: Reports abdominal pain and constipation; Denies diarrhea or vomiting Genitourinary Genitourinary ED: Reports hematuria and other Details: Decreased urinary output in the left urostomy tube ; Denies dysuria Musculoskeletal Musculoskeletal: Denies arthralgias, myalgias or neck pain Integumentary Denies abscess, Abrasions or rash Neurologic Neurologic: Denies headache(s), paresthesias or weakness Psychiatric Psychiatric: Denies anxiety, depression, suicidal ideation or suicidal thoughts Endocrine Endocrinology: Denies polydipsia or polyuria EXAM Physical Exam Const Vital Signs: 02/14/21 13:00 02/14/21 16:51 02/14/21 17:35 Temperature 96.2 F L Temperature Source Temporal Pulse Rate 59 L 92 86 Respiratory Rate 16 16 16 Blood Pressure 117/55 L 114/71 130/67 H Blood Pressure Mean 75 85 88 Pulse Ox 96 96 96 Oxygen Delivery Method Room Air Room Air Room Air 02/14/21 17:46 Temperature 96.2 F L Temperature Source Temporal Pulse Rate 86 Respiratory Rate 16 Blood Pressure 130/67 H Blood Pressure Mean 88 Pulse Ox 96 Oxygen Delivery Method Room Air General Appearance ED: Negative for pallor HEENT Reports normocephalic, head/scalp atraumatic and moist mucous membranes normocephalic and atraumatic Eyes PERRL and EOMs intact bilaterally Neck no lymphadenopathy and supple Chest Wall inspection of chest normal and palpation of chest normal Resp normal respiratory effort and clear to auscultation bilaterally Auscultation: Negative for rales, rhonchi or wheezes Cardio regular rate and regular rhythm GI normal to inspection, nondistended, normoactive bowel sounds Inspection: abdominal distention Auscultation: hypoactive bowel sounds Palpation: soft; Negative for rebound tenderness present Narrative: Deferred Back/Spine no CVA tenderness General Back: Negative for CVA tenderness Cervical Spine: Negative for cervical spine tenderness Extremity normal to inspection General Extremety ED: Yes edema and tenderness General Extremity: edema Neuro oriented x3 and CN's II-XII intact bilaterally Sensorium / Orientation: alert Motor Exam: strength 5/5 throughout Psych mental status grossly normal Attitude: No agitated Skin no rashes or lesions noted and no wounds General Skin Exam: Negative for jaundice or pallor MDM MDM MDM Narrative Medical decision making narrative: 80-year-old male presenting with abdominal cramping as well as constipation for 4 days. He has history of urostomy and nephrostomy tube he is known to Dr. Matthew. Patient's vital signs are stable and he is afebrile. Patient's exam has mild distention of his abdomen and he is not peritoneal. He was given IV fluids and states he only had minimal pain and constipation I did withhold narcotics. Patient's lab work shows a leukocytosis of 21,000 with a left shift. PT/INR are normal. Creatinine is 4.1 previously around 3.6. Potassium slightly low at 3.4. Urinalysis drawn from the right nephrostomy tube is positive for infection. Patient has history of staph aureus as well as Pseudomonas. Patient will be covered with Zosyn. I did draw blood cultures. Lactic acid is 1.1. Patient had a urine culture drawn from the left urostomy which was cultured due to lack of volume of urine. CT scan of the abdomen pelvis without contrast due to renal function shows soft tissue mass in the pelvis as well as hydronephrosis on the left. A stent is seen and is unknown if it is occluded. There is also pulmonary nodules in the left lower lung. Patient was discussed with Dr. Matthew who did come to the ED to evaluate the patient. It looks as though he is got metastatic cancer with a known history of squamous cell carcinoma the bladder. Patient will have left-sided nephrostomy tube placed tomorrow. I did discuss this with the hospitalist who will accept the patient for admission. Patient stable on transfer. Impression: 1. History of squamous cell carcinoma the bladder 2. UTI 3. Leukocytosis 4. Pulmonary nodules 5. Left-sided hydronephrosis Lab Data Labs: Laboratory Results - last 24 hr 02/14/21 02/14/21 02/14/21 13:52 13:52 13:52 WBC 25.1 H RBC 4.03 L Hgb 10.3 L Hct 33.8 L MCV 83.9 MCH 25.6 L MCHC 30.5 L RDW Std Deviation 48.8 H RDW Coeff of Jeff 16.0 H Plt Count 203 MPV 11.2 Immature Gran % (Auto) 0.700 Neut % (Auto) 71.8 H Lymph % (Auto) 4.8 L [place] % (Auto) 22.2 H Eos % (Auto) 0.2 Baso % (Auto) 0.3 Absolute Neuts (auto) 18.1 H Absolute Lymphs (auto) 1.21 Nucleated RBC % 0 Differential Comment SCANNED Diff Path Review February foll PT 15.3 H INR 1.3 Sodium 139 Potassium 3.4 L Chloride 102 Carbon Dioxide 27.0 Anion Gap 10 BUN 46 H Creatinine 4.81 H Estim Creat Clear Calc 12.83 Est GFR (MDRD) Af Amer 15 L Est GFR (MDRD) Non-Af 12 L BUN/Creatinine Ratio 9.6 L Glucose 117 H Lactic Acid Calcium 9.3 Total Bilirubin 0.50 AST 9 L ALT 10 L Alkaline Phosphatase 57 Total Protein 7.5 Albumin 3.3 Globulin 4.2 Albumin/Globulin Ratio 0.8 L Urine Color Urine Clarity Urine pH Ur Specific [place] Urine Protein Urine Glucose (UA) Urine Ketones Urine Occult Blood Urine Nitrite Urine Bilirubin Urine Urobilinogen Ur Leukocyte Esterase Urine RBC Urine WBC Ur Squamous Epith Cells Urine Bacteria Fine Granular Casts Coarse Granular Casts Urine Mucus Urine Yeast 02/14/21 02/14/21 16:34 16:43 WBC RBC Hgb Hct MCV MCH MCHC RDW Std Deviation RDW Coeff of Jeff Plt Count MPV Immature Gran % (Auto) Neut % (Auto) Lymph % (Auto) [place] % (Auto) Eos % (Auto) Baso % (Auto) Absolute Neuts (auto) Absolute Lymphs (auto) Nucleated RBC % Differential Comment Diff Path Review PT INR Sodium Potassium Chloride Carbon Dioxide Anion Gap BUN Creatinine Estim Creat Clear Calc Est GFR (MDRD) Af Amer Est GFR (MDRD) Non-Af BUN/Creatinine Ratio Glucose Lactic Acid 1.1 Calcium Total Bilirubin AST ALT Alkaline Phosphatase Total Protein Albumin Globulin Albumin/Globulin Ratio Urine Color Yellow Urine Clarity Cloudy Urine pH 5.0 Ur Specific [place] 1.015 Urine Protein 100 H Urine Glucose (UA) Normal Urine Ketones Negative Urine Occult Blood 150 H Urine Nitrite Negative Urine Bilirubin Negative Urine Urobilinogen Normal Ur Leukocyte Esterase 500 H Urine RBC 10-25 SEEN Urine WBC 50-100 SEEN Ur Squamous Epith Cells 0 SEEN Urine Bacteria 1+ Fine Granular Casts 0-5 SEEN Coarse Granular Casts 0-5 SEEN Urine Mucus 0 SEEN Urine Yeast 2+ Radiography Diagnostic Testing: Radiology Impression Abdomen/Pelvis CT 02/14/21 14:51 IMPRESSION: Moderate degree of the left hydronephrosis and left hydroureter. Double-J stent catheter is seen. Right-sided nephrostomy catheter is present. No significant hydronephrosis seen on the right side. Progressive soft tissue density in the pelvis as compared to prior study. Status post resection of the urinary bladder with an ileal loop in the right anterior abdominal wall. New right pleural effusion with left pulmonary nodules. Electronically Signed: Jesus Carver MD at 15:42 EDT , Service support , Chest X-Ray 02/14/21 16:44 IMPRESSION: Lower lung nodular airspace infiltrates and small effusion. Electronically Signed: Mingo Lemus MD at 17:51 EDT , Service support , Discharge Plan Triage Chief Complaint: Constipation ED Provider: Jude Evans Dx/Rx/DC Orders Primary Care Provider: Kim Torres
[2021-02-14 18:00] LABS: Lactic Acid 1.1 mmol/L (0.4-1.9)
[2021-02-14 18:47] VITALS: BMI 31.6
[2021-02-14 18:58] VITALS: BP 128/87; PULSE 81; RESP 18; TEMP 37; O2SAT 98
[2021-02-14] MEDS: 0.9% Normal Saline 1,000 ML 100 ML IV (19:54)
[2021-02-14 21:31] VITALS: PULSE 76
[2021-02-14] MEDS: Metoprolol Tartrate 25 MG Tablet PO (21:31)
[2021-02-14] MEDS: Polyethylene Glycol 3350 17 GM PACKET PO (21:31)
[2021-02-14] MEDS: Menthol/Lanolin/Calamine/Znox 113 GM Tube 1 APPLIC TOPICAL (22:13)
[2021-02-15] VITALS (15 sets, daily range): BP systolic 98–133; BP diastolic 47–85; PULSE 74–97; RESP 12–30; TEMP 36.4–36.8; O2SAT 88–98
[2021-02-15] MEDS: Acetaminophen 325 MG Tablet 650 MG PO ×3 (02:57→22:22)
[2021-02-15] MEDS: 0.9% Normal Saline 1,000 ML 100 ML IV ×2 (06:00→18:03)
--- NOTE | 2021-02-15 06:44 | PCM.PN.HOSP ---
Subjective Subjective: Patient notes ongoing fatigue, still constipated and some abdominal generalized cramping since initial presentation but mildly improved since at least initial ED evaluation. He notes plans for nephrostomy exchange today per IR per Dr. Matthew direction. Patient denies fevers, chills, nausea, emesis, chest pain or dyspnea. Objective Data Objective Data Vital Signs: Vital Signs Temp Pulse Resp BP Pulse Ox 98.3 F 97 18 130/75 H 94 02/15/21 02:28 02/15/21 02:28 02/15/21 02:28 02/15/21 02:28 02/15/21 02:28 Oxygen Delivery Method Room Air Weight: 227 lb Body Mass Index (BMI) 31.6 Intake & Output: Intake and Output for Last 24 Hours 02/13/21 02/14/21 02/15/21 23:59 23:59 23:59 Intake Total 1250 / 1250 1050 / 1050 Output Total 150 / 150 60 / 60 Balance 1100 / 1100 990 / 990 Lab / Micro Data Result Diagrams: 02/15/21 05:45 02/15/21 05:45 Labs: Laboratory Results - last 24 hr 02/14/21 02/14/21 02/14/21 13:52 13:52 13:52 WBC 25.1 H RBC 4.03 L Hgb 10.3 L Hct 33.8 L MCV 83.9 MCH 25.6 L MCHC 30.5 L RDW Std Deviation 48.8 H RDW Coeff of Jeff 16.0 H Plt Count 203 MPV 11.2 Immature Gran % (Auto) 0.700 Neut % (Auto) 71.8 H Lymph % (Auto) 4.8 L [place] % (Auto) 22.2 H Eos % (Auto) 0.2 Baso % (Auto) 0.3 Absolute Neuts (auto) 18.1 H Absolute Lymphs (auto) 1.21 Nucleated RBC % 0 Differential Comment SCANNED Diff Path Review February foll PT 15.3 H INR 1.3 Sodium 139 Potassium 3.4 L Chloride 102 Carbon Dioxide 27.0 Anion Gap 10 BUN 46 H Creatinine 4.81 H Estim Creat Clear Calc 12.83 Est GFR (MDRD) Af Amer 15 L Est GFR (MDRD) Non-Af 12 L BUN/Creatinine Ratio 9.6 L Glucose 117 H Lactic Acid Calcium 9.3 Total Bilirubin 0.50 AST 9 L ALT 10 L Alkaline Phosphatase 57 Total Protein 7.5 Albumin 3.3 Globulin 4.2 Albumin/Globulin Ratio 0.8 L Urine Color Urine Clarity Urine pH Ur Specific [place] Urine Protein Urine Glucose (UA) Urine Ketones Urine Occult Blood Urine Nitrite Urine Bilirubin Urine Urobilinogen Ur Leukocyte Esterase Urine RBC Urine WBC Ur Squamous Epith Cells Urine Bacteria Fine Granular Casts Coarse Granular Casts Urine Mucus Urine Yeast 02/14/21 02/14/21 16:34 16:43 WBC RBC Hgb Hct MCV MCH MCHC RDW Std Deviation RDW Coeff of Jeff Plt Count MPV Immature Gran % (Auto) Neut % (Auto) Lymph % (Auto) [place] % (Auto) Eos % (Auto) Baso % (Auto) Absolute Neuts (auto) Absolute Lymphs (auto) Nucleated RBC % Differential Comment Diff Path Review PT INR Sodium Potassium Chloride Carbon Dioxide Anion Gap BUN Creatinine Estim Creat Clear Calc Est GFR (MDRD) Af Amer Est GFR (MDRD) Non-Af BUN/Creatinine Ratio Glucose Lactic Acid 1.1 Calcium Total Bilirubin AST ALT Alkaline Phosphatase Total Protein Albumin Globulin Albumin/Globulin Ratio Urine Color Yellow Urine Clarity Cloudy Urine pH 5.0 Ur Specific [place] 1.015 Urine Protein 100 H Urine Glucose (UA) Normal Urine Ketones Negative Urine Occult Blood 150 H Urine Nitrite Negative Urine Bilirubin Negative Urine Urobilinogen Normal Ur Leukocyte Esterase 500 H Urine RBC 10-25 SEEN Urine WBC 50-100 SEEN Ur Squamous Epith Cells 0 SEEN Urine Bacteria 1+ Fine Granular Casts 0-5 SEEN Coarse Granular Casts 0-5 SEEN Urine Mucus 0 SEEN Urine Yeast 2+ Radiography Diagnostic Testing: Radiology Impression Abdomen/Pelvis CT 02/14/21 14:51 IMPRESSION: Moderate degree of the left hydronephrosis and left hydroureter. Double-J stent catheter is seen. Right-sided nephrostomy catheter is present. No significant hydronephrosis seen on the right side. Progressive soft tissue density in the pelvis as compared to prior study. Status post resection of the urinary bladder with an ileal loop in the right anterior abdominal wall. New right pleural effusion with left pulmonary nodules. Electronically Signed: Jesus Carver MD at 15:42 EDT , Service support , Chest X-Ray 02/14/21 16:44 IMPRESSION: Lower lung nodular airspace infiltrates and small effusion. Electronically Signed: Mingo Lemus MD at 17:51 EDT , Service support , Physical Exam Narrative Physical Examination: General: awake, alert, oriented x 3 and cooperative, seated upright in the medical surgical bed, fatigued appearance. Skin: normal color, turgor, no icterus, cyanosis. HEENT: AT/NC, EOMI, PERRLA, mildly dry MM. Lungs: Diminished BS, > bases, moderate effort, no rales, ronchi or wheezing. Heart: Regular rate and rhythm; no gallop, rub audible. Abdomen: soft, mild generalized discomfort with palpation with no rebound or guarding, mildly distended, nephrostomy tubes in place. Extremities: no cyanosis, clubbing, or edema. Neurological: patient awake, alert, oriented as noted; cognitive function appears baseline intact; pupils equally reactive to light and accomodation; cranial nerves II-XII grossly normal, moving all 4 extremities, no focal deficits, strength moderately globally decreased. Psychiatric: affect appears fatigued, flat, suspect depression, no acute evidence of anxiety feelings. Assessment & Plan Assessment/Plan (1) Urinary tract infection: QUALIFIERS: Urinary tract infection type: site unspecified Hematuria presence: with hematuria Qualified Code(s): N39.0 - Urinary tract infection, site not specified; R31.9 - Hematuria, unspecified (2) MERLE (acute kidney injury): (3) Bladder cancer: QUALIFIERS: Bladder location: unspecified site Qualified Code(s): C67.9 - Malignant neoplasm of bladder, unspecified PLAN: The patient is an 80 y/o M w/ PMHx: Bladder Cancer s/p cystectomy with ileal conduit placement and R sided nephrostomy tube, CKD stage IV, HTN, HLD, Anxiety and Depression who presents to the [facility] ED on 02/14/21 with acute on chronic constipation, abdominal discomfort with nausea and emesis. 1. Acute Complicated Urinary Infection s/p Cystectomy w/ Nephrostomy tube and ileal conduit w/ Preliminary GPC Growth, history of MSSA prior: Admitted to [facility] upon ED evaluation remarkable, pending UCx, continue IVFs, monitor I/Os, continue IV Zosyn given complicated history w/ transition as able pending sensitivities and speciation. Urology consulted and planned 02/15/21 nephrostomy tube exchange, L sided. ID and Urology consulted and following. 2. Acute on Chronic Constipation: Admission CT abdomen and pelvis with a moderate degree of left hydronephrosis and left hydroureter, double-J stent catheter in place, right-sided nephrostomy catheter present, no significant hydronephrosis seen on the right side, progressive soft tissue density in the pelvis compared to prior study, status post resection of the urinary bladder with an ileal loop in the right anterior abdominal wall, new right pleural effusion with the left pulmonary nodules. We will continue scheduled MiraLAX, Metamucil, senna/docusate sodium regimen with hold parameters for loose stools. 3. Bladder cancer status post cystectomy with nephrostomy tube, suspect likely metastatic colon: CT abdomen and pelvis with findings as noted above, plan 02/15/21 L sided nephrostomy tube placement per IR per Urology, notable progressive soft tissue density in the pelvis compared to prior study, new right pleural effusion with the left pulmonary nodules which given history is likely metastatic disease. Patient not chemotherapy candidate per Urology report. Palliative/Hospice consultation pending. 4. Acute kidney injury: Secondary to #1, complicated by #2 and secondary to also #3. Admission BUN/Cr 46/4.81, repeat 02/15/21 BUN/Cr 48/4.68, prior baseline creatinine noted to be 3.1-3.6 primarily. Will continue to judiciously hydrate, hold nephrotoxic medications, as noted OR 02/15/21 for L sided nephrostomy tube exchange, plan repeat in AM. 5. Hypertension: Continue home regimen including metoprolol with hold parameters, PRN hydralazine. 6. Hyperlipidemia: Continue home statin therapy. 7. Anxiety and depression: We will continue patient home as needed low-dose Ativan however given presentation and recent discussions evident depression. Palliative and hospice are consulted and will assist. 8. DVT Prophylaxis: SCDs, chemotherapy held given OR as noted, add heparin 02/16/21. 9. CODE status: DNR-CCA, no intubation status. Visit Charges Inpatient E&M: [id number] [facility] L3
[2021-02-15 06:49] LABS: Absolute Lymphocyte Count 1.27 X10^3/uL (0.83-4.51); Absolute Neutrophil Count 13.9 X10^3/uL (2.0-7.7); Basophil# 0.07 X10^3/uL; Basophil% 0.4 % (0-1); Eosinophil# 0.08 X10^3/uL; Eosinophils% 0.4 % (0-5); Hematocrit 30.6 % (40-54); Hemoglobin 9.3 g/dL (13.0-16.5); Lymphocyte # 1.27 X10^3/ul (0.83-4.51); Lymphocyte % 6.6 % (19-41); Mean Corp Hgb Conc 30.4 g/dL (32-36); Mean Corpuscular Hgb 25.4 pg (27.0-32.0); Mean Corpuscular Volume 83.6 fL (80-94); Mean Platelet Vol. 11.5 fl (6.2-12.0); Monocyte# 3.73 X10^3/uL; Monocyte% 19.5 % (0-10); NRBC Flagged by Analyzer 0 % (0-5); Neutrophil # 13.86 X10^3/uL (2.7-7.7); Neutrophil % 72.4 % (47-70); POSITIVE DIFFERENTIAL YES; Platelet Count 186 K/mm3 (150-450); RBC Distribution Width CV 16.1 % (11.6-14.6); RBC Distribution Width SD 49.3 fl (35.1-43.9); Red Blood Count 3.66 M/mm3 (4.6-6.2); White Blood Count 19.1 K/mm3 (4.4-11.0)
[2021-02-15 07:04] LABS: Differential Indicated SCAN CRITERIA MET
[2021-02-15 07:16] LABS: Anion Gap 11 (5-15); BUN 48 mg/dL (7-18); BUN/Creat Ratio 10.3 RATIO (10-20); Calcium,Total 8.7 mg/dL (8.5-10.1); Chloride 106 mmol/L (98-107); Creatinine, Serum 4.68 mg/dL (0.70-1.30); EST Glomerular Filtration Rate 13 mL/min (>60); Est Glom Filt Rate - Afr Amer 16 mL/min (>60); Estimated Creatinine Clearance 13.18 ml/min; Glucose 87 mg/dL (74-106); Potassium 3.2 mmol/L (3.5-5.1); Sodium Level 141 mmol/L (136-145)
[2021-02-15 08:17] LABS: Magnesium 2.8 mg/dL (1.6-2.6)
--- NOTE | 2021-02-15 10:00 | CT_ITS ---
PROCEDURE: COMPUTERIZED TOMOGRAPHIC GUIDANCE DURING PERCUTANEOUS NEPHROSTOMY PROCEDURE. DATE OF EXAMINATION: 02/15/2021. INDICATION: Male, 80 years old. Left hydronephrosis. PHYSICIAN: Jesus Carver M.D. CONSENT: The patient''s history and physical findings were reviewed. Prior to the procedure the percutaneous nephrostomy insertion were described to the patient. Benefits and possible complications including infection and bleeding were defined to the patient. Consent was signed. SEDATION: 2 mg of VERSED and 50 mcg of FENTANYL intravenously. Conscious sedation was started at 10:06 AM and terminated at 10:32 AM. The conscious sedation protocol was followed. The patient was independently monitored by the department nurse. CTDIvol 29.15mGy DLP 1039.42 Individualized dose optimization techniques were utilized. TECHNIQUE: The patient was placed in the left anterior oblique position. The overlying skin was prepped and draped in usual sterile fashion. Conscious sedation was performed. An 8 [place] percutaneous nephrostomy catheter was then placed under CT guidance. A loop of the pigtail catheter was formed within the left renal pelvis and locked in this position. There is dilatation of the upper collecting system and dilatation of the left ureter to the bladder. No contrast passed into the urinary bladder. The catheter was secured to the skin surface and covered with a sterile dressing. The catheter was attached to a drainage bag attached to the patient''s leg. CT/Nephrotube Placement CT IMPRESSION: 1. The percutaneous left nephrostomy catheter is in good position with the pigtail portion located in the left renal pelvis. 2. Conscious sedation protocol was followed. Electronically Signed: Jesus Carver MD at 11:11 EDT , Service support ,
[2021-02-15] MEDS: Midazolam 2 MG/2 ML Syringe IV (10:06)
[2021-02-15] MEDS: fentaNYL 100 MCG/2 ML Ampul IV (10:06)
[2021-02-15] MEDS: Lidocaine 2% (20 ml mdv) 20 ML Vial INFILT (10:15)
--- NOTE | 2021-02-15 10:57 | NURSING ---
O2 3L APPLIED; PT 88% ON RA FOLLOWING NEPHRO TUBE INSERTION.
[2021-02-15 11:40] LABS: Pathologist Review Reviewed
[2021-02-15 11:40] LABS: Pathologist Review Reviewed
[2021-02-15] MEDS: Menthol/Lanolin/Calamine/Znox 113 GM Tube 1 APPLIC TOPICAL ×2 (12:06→22:10)
[2021-02-15] MEDS: Psyllium 1 PACKET PO (12:06)
[2021-02-15] MEDS: Metoprolol Tartrate 25 MG Tablet PO ×2 (12:06→22:10)
[2021-02-15] MEDS: Bisacodyl 10 MG Suppository RC (12:06)
[2021-02-15] MEDS: Polyethylene Glycol 3350 17 GM PACKET PO ×2 (12:07→22:10)
[2021-02-15] MEDS: Senna/Docusate Sodium 1 Tablet PO ×2 (12:07→22:09)
--- NOTE | 2021-02-15 13:15 | CASEMGMT ---
LIAM VAZQUEZ Face to Face with patient for initial transition planning/care coordination assessment. LIAM VAZQUEZ introduced self and role at [facility]. Patient lying in bed, alert and oriented, daughter at bedside. Patient willing to participate in assessment and is able to answer all questions appropriately. Care providers, pharmacy, and demographics verified. Patient wishes to discharge home with resumption of his HHC with [facility]. Patient states he has no further needs or concerns at this time. CM to follow for discharge planning needs that may arise. PCP: Brian Specialists: Vipul, urologist; Kadie, on site manager Preferred Pharmacy: [facility] Insurance: [facility], [facility] Prescription Benefit: yes Living Will/HPOA: yes, Xin Valencia LNOK: , daughters Living Arrangements: Patient lives with in a 2 story home with bed and bath on first floor. Patient has 2 steps and grab bar to enter the home. Transportation: daughters DME/HHC: Patient states he has raised toilet, cane, walker, grab bars at home. Patient is active with [facility] for SN and PT and wishes to resume care at discharge. [facility] Disposition Plan: Patient to discharge home with resumption of HHC, family support, and follow-up plans in place. Sulma CARBALLO, RN, CM
--- NOTE | 2021-02-15 14:15 | PCM.CONS.GEN ---
Assessment & Plan Assessment/Plan (1) Urinary tract infection: PLAN: Now s/p L neph tube change. Ucx with GPC, h/o mssa in the past. On zosyn, will continue. Will follow. Thank you. Counseled him re: need for covid vaccine. HPI Consult Data Date of Consult: 02/15/21 HPI Narrative HPI Narrative: SUSANNAH CALIXTO, is a 80 M with bladder cancer s/p cystectomy and ileal conduit with bilat neph tubes, presented with one day of not feeling well, n/v. Has not gotten covid shot. Has home health nurses. No fever, no abd pain. Taken to ED, started on zosyn, taken to OR this Am for L neph tube change by Dr. Matthew. Additional history from daughter at bedside. Full ROS performed and neg except as noted above. 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 Primary hypertension Pure hypercholesterolemia Urethral stricture Home Medications simvastatin 10 mg PO QHS 05/01/16 [History Last Taken 02/13/21] aspirin 81 mg PO DAILY@0800 05/01/19 [History Last Taken 02/13/21] multivitamin 1 ea PO DAILY 12/11/19 [History Last Taken 02/13/21] vit C,T-Nk-aeoal-lutein-zeaxan 1 ea PO BID 12/11/19 [History Last Taken 02/13/21] lorazepam 0.5 mg PO DAILY PRN PRN 11/30/20 [History Last Taken Unknown] ondansetron 8 mg PO Q6H PRN 11/30/20 [History Last Taken Unknown] metoprolol tartrate 25 mg PO BID 12/10/20 [History Last Taken 02/13/21] acetaminophen 1,000 mg PO Q6H PRN PRN tablet 01/02/21 [Rx Last Taken 02/13/21] simethicone 80 mg PO TIDPC PRN #90 tablet 01/02/21 [Rx Last Taken Unknown] emollient combination no.72 [Eucerin Intensive Repair] 1 ea TOPICAL QHS 02/14/21 [History Last Taken Unknown] Allergy/AdvReac Type Severity Reaction Status Date / Time atenolol AdvReac hypotension Verified 02/14/21 19:01 tamsulosin [From Flomax] AdvReac PT UNSURE Verified 02/14/21 19:01 OF REACTION Family History (Updated 02/14/21 @ 17:57 by Alison Otero BULK SYSTEM OPERATOR, BULK SYSTEM OPERATOR-C) Mother No problems noted. Father No problems noted. Surgical History (Updated 02/14/21 @ 19:32 by Rachel Kitchen) History of appendectomy History of cystoscopy History of urostomy Social History (Updated 12/06/19 @ 18:02 by Miguelito WARD, PA) Smoking Status: Former smoker alcohol intake: current alcohol intake frequency: 0-2 drinks per day Alcohol type: wine Physical Exam Const alert and no apparent distress General Appearance: cooperative HEENT normocephalic and head/scalp atraumatic Eyes PERRL and EOMs intact bilaterally Neck supple and No nodes Resp clear to auscultation bilaterally Cardio regular rate and regular rhythm GI normal to inspection, nondistended, normoactive bowel sounds Extremity no clubbing, cyanosis or edema Skin no rashes or lesions noted Neuro CN's II-XII intact bilaterally Lab / Micro Data Result Diagrams: 02/15/21 05:45 02/15/21 05:45 Labs: Laboratory Results - last 24 hr 02/14/21 02/14/21 02/14/21 13:52 13:52 13:52 WBC 25.1 H RBC 4.03 L Hgb 10.3 L Hct 33.8 L MCV 83.9 MCH 25.6 L MCHC 30.5 L RDW Std Deviation 48.8 H RDW Coeff of Jeff 16.0 H Plt Count 203 MPV 11.2 Immature Gran % (Auto) 0.700 Neut % (Auto) 71.8 H Lymph % (Auto) 4.8 L [place] % (Auto) 22.2 H Eos % (Auto) 0.2 Baso % (Auto) 0.3 Absolute Neuts (auto) 18.1 H Absolute Lymphs (auto) 1.21 Nucleated RBC % 0 Differential Comment SCANNED Diff Path Review Reviewed PT 15.3 H INR 1.3 Sodium 139 Potassium 3.4 L Chloride 102 Carbon Dioxide 27.0 Anion Gap 10 BUN 46 H Creatinine 4.81 H Estim Creat Clear Calc 12.83 Est GFR (MDRD) Af Amer 15 L Est GFR (MDRD) Non-Af 12 L BUN/Creatinine Ratio 9.6 L Glucose 117 H Lactic Acid Calcium 9.3 Magnesium Total Bilirubin 0.50 AST 9 L ALT 10 L Alkaline Phosphatase 57 Total Protein 7.5 Albumin 3.3 Globulin 4.2 Albumin/Globulin Ratio 0.8 L Urine Color Urine Clarity Urine pH Ur Specific [place] Urine Protein Urine Glucose (UA) Urine Ketones Urine Occult Blood Urine Nitrite Urine Bilirubin Urine Urobilinogen Ur Leukocyte Esterase Urine RBC Urine WBC Ur Squamous Epith Cells Urine Bacteria Fine Granular Casts Coarse Granular Casts Urine Mucus Urine Yeast 02/14/21 02/14/21 02/15/21 16:34 16:43 05:45 WBC RBC Hgb Hct MCV MCH MCHC RDW Std Deviation RDW Coeff of Jeff Plt Count MPV Immature Gran % (Auto) Neut % (Auto) Lymph % (Auto) [place] % (Auto) Eos % (Auto) Baso % (Auto) Absolute Neuts (auto) Absolute Lymphs (auto) Nucleated RBC % Differential Comment Diff Path Review PT INR Sodium 141 Potassium 3.2 L Chloride 106 Carbon Dioxide 24.0 Anion Gap 11 BUN 48 H Creatinine 4.68 H Estim Creat Clear Calc 13.18 Est GFR (MDRD) Af Amer 16 L Est GFR (MDRD) Non-Af 13 L BUN/Creatinine Ratio 10.3 Glucose 87 Lactic Acid 1.1 Calcium 8.7 Magnesium Total Bilirubin AST ALT Alkaline Phosphatase Total Protein Albumin Globulin Albumin/Globulin Ratio Urine Color Yellow Urine Clarity Cloudy Urine pH 5.0 Ur Specific [place] 1.015 Urine Protein 100 H Urine Glucose (UA) Normal Urine Ketones Negative Urine Occult Blood 150 H Urine Nitrite Negative Urine Bilirubin Negative Urine Urobilinogen Normal Ur Leukocyte Esterase 500 H Urine RBC 10-25 SEEN Urine WBC 50-100 SEEN Ur Squamous Epith Cells 0 SEEN Urine Bacteria 1+ Fine Granular Casts 0-5 SEEN Coarse Granular Casts 0-5 SEEN Urine Mucus 0 SEEN Urine Yeast 2+ 02/15/21 02/15/21 05:45 05:45 WBC 19.1 H RBC 3.66 L Hgb 9.3 L Hct 30.6 L MCV 83.6 MCH 25.4 L MCHC 30.4 L RDW Std Deviation 49.3 H RDW Coeff of Jeff 16.1 H Plt Count 186 MPV 11.5 Immature Gran % (Auto) 0.700 Neut % (Auto) 72.4 H Lymph % (Auto) 6.6 L [place] % (Auto) 19.5 H Eos % (Auto) 0.4 Baso % (Auto) 0.4 Absolute Neuts (auto) 13.9 H Absolute Lymphs (auto) 1.27 Nucleated RBC % 0 Differential Comment Diff Path Review Reviewed PT INR Sodium Potassium Chloride Carbon Dioxide Anion Gap BUN Creatinine Estim Creat Clear Calc Est GFR (MDRD) Af Amer Est GFR (MDRD) Non-Af BUN/Creatinine Ratio Glucose Lactic Acid Calcium Magnesium 2.8 H Total Bilirubin AST ALT Alkaline Phosphatase Total Protein Albumin Globulin Albumin/Globulin Ratio Urine Color Urine Clarity Urine pH Ur Specific [place] Urine Protein Urine Glucose (UA) Urine Ketones Urine Occult Blood Urine Nitrite Urine Bilirubin Urine Urobilinogen Ur Leukocyte Esterase Urine RBC Urine WBC Ur Squamous Epith Cells Urine Bacteria Fine Granular Casts Coarse Granular Casts Urine Mucus Urine Yeast Micro: Microbiology 02/14/21 16:34 Urine Culture - Preliminary Urine, Clean Catch Gram positive organism Radiology Impression Abdomen/Pelvis CT 02/14/21 14:51 IMPRESSION: Moderate degree of the left hydronephrosis and left hydroureter. Double-J stent catheter is seen. Right-sided nephrostomy catheter is present. No significant hydronephrosis seen on the right side. Progressive soft tissue density in the pelvis as compared to prior study. Status post resection of the urinary bladder with an ileal loop in the right anterior abdominal wall. New right pleural effusion with left pulmonary nodules. Electronically Signed: Jesus Carver MD at 15:42 EDT , Service support , Chest X-Ray 02/14/21 16:44 IMPRESSION: Lower lung nodular airspace infiltrates and small effusion. Electronically Signed: Mingo Lemus MD at 17:51 EDT , Service support , Nephrostomy Tube Change 02/15/21 10:00 IMPRESSION: 1. The percutaneous left nephrostomy catheter is in good position with the pigtail portion located in the left renal pelvis. 2. Conscious sedation protocol was followed. Electronically Signed: Jesus Carver MD at 11:11 EDT , Service support ,
[2021-02-15] MEDS: Atorvastatin Calcium 10 MG Tablet 5 MG PO (22:09)
[2021-02-15] MEDS: CLARIFY ORDER NOTE (23:05)
[2021-02-16] VITALS (8 sets, daily range): BP systolic 108–137; BP diastolic 59–90; PULSE 68–85; RESP 16–18; TEMP 36.4–37.2; O2SAT 91–95
[2021-02-16] MEDS: 0.9% Normal Saline 1,000 ML 100 ML IV ×2 (03:57→12:52)
[2021-02-16 05:55] LABS: Absolute Lymphocyte Count 1.35 X10^3/uL (0.83-4.51); Absolute Neutrophil Count 12.8 X10^3/uL (2.0-7.7); Basophil# 0.12 X10^3/uL; Basophil% 0.6 % (0-1); Eosinophil# 0.13 X10^3/uL; Eosinophils% 0.7 % (0-5); Hematocrit 30.9 % (40-54); Hemoglobin 9.4 g/dL (13.0-16.5); Lymphocyte # 1.35 X10^3/ul (0.83-4.51); Lymphocyte % 7.2 % (19-41); Mean Corp Hgb Conc 30.4 g/dL (32-36); Mean Corpuscular Hgb 25.5 pg (27.0-32.0); Mean Corpuscular Volume 83.7 fL (80-94); Mean Platelet Vol. 11.2 fl (6.2-12.0); Monocyte# 4.24 X10^3/uL; Monocyte% 22.6 % (0-10); NRBC Flagged by Analyzer 0 % (0-5); Neutrophil # 12.79 X10^3/uL (2.7-7.7); Neutrophil % 68.3 % (47-70); POSITIVE DIFFERENTIAL YES; Platelet Count 184 K/mm3 (150-450); RBC Distribution Width SD 49.1 fl (35.1-43.9); Red Blood Count 3.69 M/mm3 (4.6-6.2); White Blood Count 18.8 K/mm3 (4.4-11.0)
[2021-02-16 05:56] LABS: Differential Indicated SCAN CRITERIA MET
--- NOTE | 2021-02-16 06:19 | PCM.PN.HOSP ---
Subjective Subjective: Patient without acute events overnight per self and RN report. Patient with successful bowel movements since aggressive regimen initiation. Patient with lengthy discussion this AM with Urology and pending evaluation per Hem/Onc to discuss options but again noted likely no intervention candidate. Patient already met with Palliative/hospice team as well. Discussed awaiting UCx prior to consideration discharge w/ ID following given history. Patient denies fevers, chills, nausea, emesis, abdominal pain, chest pain or dyspnea. Objective Data Objective Data Vital Signs: Vital Signs Temp Pulse Resp BP Pulse Ox 98.9 F 75 18 108/59 L 94 02/16/21 01:58 02/16/21 01:58 02/16/21 01:58 02/16/21 01:58 02/16/21 01:58 Oxygen Flow Rate (L/min) [7] 2 Oxygen Flow Rate (L/min) [6] 2 Oxygen Flow Rate (L/min) [5] 2 Oxygen Flow Rate (L/min) [4] 2 Oxygen Flow Rate (L/min) [3] 2 Oxygen Flow Rate (L/min) [2] 2 Oxygen Flow Rate (L/min) 2 Oxygen Delivery Method [7] Nasal Cannula Oxygen Delivery Method [6] Nasal Cannula Oxygen Delivery Method [5] Nasal Cannula Oxygen Delivery Method [4] Nasal Cannula Oxygen Delivery Method [3] Nasal Cannula Oxygen Delivery Method [2] Room Air Oxygen Delivery Method [1 ( Room Air Initial Baseline)] Oxygen Delivery Method Room Air Weight: 226 lb 15.983 oz Body Mass Index (BMI) 31.6 Intake & Output: Intake and Output for Last 24 Hours 02/14/21 02/15/21 02/16/21 23:59 23:59 23:59 Intake Total 1250 / 1250 2590 / 2590 990 / 990 Output Total 150 / 150 415 / 415 1680 / 1680 Balance 1100 / 1100 2175 / 2175 -690 / -690 Lab / Micro Data Result Diagrams: 02/16/21 05:20 02/16/21 05:20 Labs: Laboratory Results - last 24 hr 02/14/21 02/15/21 02/15/21 13:52 05:45 05:45 WBC 19.1 H RBC 3.66 L Hgb 9.3 L Hct 30.6 L MCV 83.6 MCH 25.4 L MCHC 30.4 L RDW Std Deviation 49.3 H RDW Coeff of Jeff 16.1 H Plt Count 186 MPV 11.5 Immature Gran % (Auto) 0.700 Neut % (Auto) 72.4 H Lymph % (Auto) 6.6 L [place] % (Auto) 19.5 H Eos % (Auto) 0.4 Baso % (Auto) 0.4 Absolute Neuts (auto) 13.9 H Absolute Lymphs (auto) 1.27 Nucleated RBC % 0 [address] Review Reviewed Reviewed Sodium 141 Potassium 3.2 L Chloride 106 Carbon Dioxide 24.0 Anion Gap 11 BUN 48 H Creatinine 4.68 H Estim Creat Clear Calc 13.18 Est GFR (MDRD) Af Amer 16 L Est GFR (MDRD) Non-Af 13 L BUN/Creatinine Ratio 10.3 Glucose 87 Calcium 8.7 Magnesium 02/15/21 02/16/21 05:45 05:20 WBC 18.8 H RBC 3.69 L Hgb 9.4 L Hct 30.9 L MCV 83.7 MCH 25.5 L MCHC 30.4 L RDW Std Deviation 49.1 H RDW Coeff of Jeff 16.0 H Plt Count 184 MPV 11.2 Immature Gran % (Auto) 0.600 Neut % (Auto) 68.3 Lymph % (Auto) 7.2 L [place] % (Auto) 22.6 H Eos % (Auto) 0.7 Baso % (Auto) 0.6 Absolute Neuts (auto) 12.8 H Absolute Lymphs (auto) 1.35 Nucleated RBC % 0 Diff Path Review May foll Sodium Potassium Chloride Carbon Dioxide Anion Gap BUN Creatinine Estim Creat Clear Calc Est GFR (MDRD) Af Amer Est GFR (MDRD) Non-Af BUN/Creatinine Ratio Glucose Calcium Magnesium 2.8 H Micro: Microbiology 02/14/21 16:34 Urine, Clean Catch Urine Culture - Preliminary Gram positive organism Radiography Diagnostic Testing: Radiology Impression Nephrostomy Tube Change 02/15/21 10:00 IMPRESSION: 1. The percutaneous left nephrostomy catheter is in good position with the pigtail portion located in the left renal pelvis. 2. Conscious sedation protocol was followed. Electronically Signed: Jesus Carver MD at 11:11 EDT , Service support , Physical Exam Narrative Physical Examination: General: awake, alert, oriented x 3 and cooperative, seated upright in the medical surgical bed, fatigued appearance but notes feeling improved since initial ED presentation and had recent bowel movements. Skin: normal color, turgor, no icterus, cyanosis. HEENT: AT/NC, EOMI, PERRLA, MMM. Lungs: Diminished BS, > bases, moderate effort, no rales, ronchi or wheezing. Heart: Regular rate and rhythm; no gallop, rub audible. Abdomen: soft, improved, NTTP, resolved distention, normalized BS, nephrostomy tubes in place. Extremities: no cyanosis, clubbing, or edema. Neurological: patient awake, alert, oriented as noted; cognitive function appears baseline intact; pupils equally reactive to light and accomodation; cranial nerves II-XII grossly normal, moving all 4 extremities, no focal deficits, strength improving, mildly to moderately globally decreased. Psychiatric: affect appears fatigued, flat, suspect depression given metastatic CA disease as noted, no acute evidence of anxiety feelings. Assessment & Plan Assessment/Plan (1) Urinary tract infection: QUALIFIERS: Urinary tract infection type: site unspecified Hematuria presence: with hematuria Qualified Code(s): N39.0 - Urinary tract infection, site not specified; R31.9 - Hematuria, unspecified (2) MERLE (acute kidney injury): (3) Bladder cancer: QUALIFIERS: Bladder location: unspecified site Qualified Code(s): C67.9 - Malignant neoplasm of bladder, unspecified PLAN: The patient is an 80 y/o M w/ PMHx: Bladder Cancer s/p cystectomy with ileal conduit placement and R sided nephrostomy tube, CKD stage IV, HTN, HLD, Anxiety and Depression who presents to the [facility] ED on 02/14/21 with acute on chronic constipation, abdominal discomfort with nausea and emesis. 1. Acute Complicated Urinary Infection s/p Cystectomy w/ Nephrostomy tube and ileal conduit w/ Preliminary GPC Growth, history of MSSA prior: Admitted to [facility] upon ED evaluation remarkable, pending UCx, continue IVFs, monitor I/Os, continue IV Zosyn given complicated history w/ transition as able pending sensitivities and speciation. Urology consulted and planned 02/15/21 nephrostomy tube exchange, L sided. ID and Urology consulted and following. 2. Acute on Chronic Constipation: Admission CT abdomen and pelvis with a moderate degree of left hydronephrosis and left hydroureter, double-J stent catheter in place, right-sided nephrostomy catheter present, no significant hydronephrosis seen on the right side, progressive soft tissue density in the pelvis compared to prior study, status post resection of the urinary bladder with an ileal loop in the right anterior abdominal wall, new right pleural effusion with the left pulmonary nodules. We will continue scheduled MiraLAX, Metamucil, senna/docusate sodium regimen with hold parameters for loose stools. 3. Bladder cancer status post cystectomy with nephrostomy tube, suspect likely metastatic colon: CT abdomen and pelvis with findings as noted above, plan 02/15/21 L sided nephrostomy tube placement per IR per Urology, notable progressive soft tissue density in the pelvis compared to prior study, new right pleural effusion with the left pulmonary nodules which given history is likely metastatic disease. Patient not chemotherapy candidate per Urology report. Palliative/Hospice consultation performed but will also have 02/16/21 requested Hem/Onc evaluation per Urology direction. 4. Acute kidney injury: Secondary to #1, complicated by #2 and secondary to also #3. Admission BUN/Cr 46/4.81, repeat 02/15/21 BUN/Cr 48/4.68, prior baseline creatinine noted to be 3.1-3.6 primarily, 02/16/21 BUN/Cr 46/4.84, increased likely secondary to #1, #3. 02/15/21 for L sided nephrostomy tube exchange but as noted increasing trend. Urology consulted and following. 5. Hypertension: Continue home regimen including metoprolol with hold parameters, PRN hydralazine. 6. Hyperlipidemia: Continue home statin therapy. 7. Anxiety and depression: We will continue patient home as needed low-dose Ativan however given presentation and recent discussions evident depression. Palliative and hospice are consulted and will assist. 8. DVT Prophylaxis: SCDs, heparin. 9. CODE status: DNR-CCA, no intubation status. Visit Charges Inpatient E&M: 98737 Subs Hosp L3
[2021-02-16 06:23] LABS: ALB/GLOB Ratio 0.7 RATIO (0.9-2.4); AST(SGOT) 12 U/L (15-37); Alanine Aminotransfer ALT/SGPT 9 U/L (16-61); Albumin, Serum 2.9 g/dL (3.2-5.0); Alkaline Phosphatase 52 U/L (45-117); Anion Gap 9 (5-15); BUN 46 mg/dL (7-18); BUN/Creat Ratio 9.5 RATIO (10-20); Calcium,Total 8.6 mg/dL (8.5-10.1); Chloride 109 mmol/L (98-107); Creatinine, Serum 4.84 mg/dL (0.70-1.30); EST Glomerular Filtration Rate 12 mL/min (>60); Est Glom Filt Rate - Afr Amer 15 mL/min (>60); Estimated Creatinine Clearance 12.75 ml/min; Globulin 3.9 g/dL (2.2-4.2); Glucose 84 mg/dL (74-106); Protein, Total 6.8 g/dL (6.4-8.2); Sodium Level 142 mmol/L (136-145)
[2021-02-16] MEDS: Potassium Chloride Oral Tablet 20 MEQ 60 MEQ PO (07:08)
--- NOTE | 2021-02-16 07:16 | PCM.CONS.U ---
Assessment & Plan Assessment/Plan (1) Bladder cancer: QUALIFIERS: Bladder location: unspecified site Qualified Code(s): C67.9 - Malignant neoplasm of bladder, unspecified PLAN: Discussion today about what to do about his cancer situation appears to have metastatic disease he had bladder cancer fairly aggressive status post cystectomy in September. He now has widely metastatic disease we will consult oncology for an opinion but his prognosis is fairly poor plus he has a lot of issues going on so I think palliative care consult is also appropriate. He is getting better while in the hospital feels better today which is good. I will do oncology consult today for a second opinion regarding his metastatic bladder cancer we could consider doing a biopsy of 1 the lung nodules to confirm this. HPI Consult Data Date of Consult: 02/16/21 HPI Narrative HPI Narrative: SUSANNAH CALIXTO, is a 80 M who presents with severe constipation and elevated white blood count poor renal function CAT scan demonstrated what appeared to be a mass in the pelvis. He also has some pulmonary nodules. He was admitted with a nephrostomy tube placed on the left side because he had severe hydro in the left side he is got a right nephrostomy tube and is draining pretty well creatinine still fairly poor at 4.8 with poor renal function chronic. He is feeling better he said some bowel movements his white count down to 18. 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 Primary hypertension Pure hypercholesterolemia Urethral stricture Home Medications simvastatin 10 mg PO QHS 05/01/16 [History Last Taken 02/13/21] aspirin 81 mg PO DAILY@0800 05/01/19 [History Last Taken 02/13/21] multivitamin 1 ea PO DAILY 12/11/19 [History Last Taken 02/13/21] vit C,R-Yi-avfdd-lutein-zeaxan 1 ea PO BID 12/11/19 [History Last Taken 02/13/21] lorazepam 0.5 mg PO DAILY PRN PRN 11/30/20 [History Last Taken Unknown] ondansetron 8 mg PO Q6H PRN 11/30/20 [History Last Taken Unknown] metoprolol tartrate 25 mg PO BID 12/10/20 [History Last Taken 02/13/21] acetaminophen 1,000 mg PO Q6H PRN PRN tablet 01/02/21 [Rx Last Taken 02/13/21] simethicone 80 mg PO TIDPC PRN #90 tablet 01/02/21 [Rx Last Taken Unknown] emollient combination no.72 [Eucerin Intensive Repair] 1 ea TOPICAL QHS 02/14/21 [History Last Taken Unknown] Allergy/AdvReac Type Severity Reaction Status Date / Time atenolol AdvReac hypotension Verified 02/14/21 19:01 tamsulosin [From Flomax] AdvReac PT UNSURE Verified 02/14/21 19:01 OF REACTION Family History (Updated 02/14/21 @ 17:57 by Alison Otero ADJUNCT PHYSICS INSTRUCTOR, ADJUNCT PHYSICS INSTRUCTOR-C) Mother No problems noted. Father No problems noted. Surgical History (Updated 02/14/21 @ 19:32 by Rachel Kitchen) History of appendectomy History of cystoscopy History of urostomy Social History (Updated 12/06/19 @ 18:02 by Miguelito WARD, PA) Smoking Status: Former smoker alcohol intake: current alcohol intake frequency: 0-2 drinks per day Alcohol type: wine Physical Exam Const alert and oriented x3 General Appearance: cooperative HEENT normocephalic, head/scalp atraumatic, EAC's normal and TM's normal bilaterally Eyes PERRL and EOMs intact bilaterally Pupil: sluggish Neck no lymphadenopathy, supple and no JVD General: trachea midline Lymph Lymphatic: no lymphadenopathy noted, lymphedema and lymphadenopathy Resp normal respiratory effort, normal air movement and clear to auscultation bilaterally Cardio regular rate, regular rhythm and peripheral pulses 2+ throughout GI soft to palpation, non-tender and non-distended Extremity normal capillary refill and no clubbing, cyanosis or edema General Extremity: no tenderness to palpation of joints or extremities Skin no rashes or lesions noted General Skin Exam: turgor normal Lesions: no lesions Rashes: no rashes Neuro CN's II-XII intact bilaterally Speech: speech normal Motor Exam: strength 5/5 throughout; Negative for general weakness Psych thought process normal, cooperative and affect normal Appearance: appropriate Lab / Micro Data Result Diagrams: 02/16/21 05:20 02/16/21 05:20 Labs: Laboratory Results - last 24 hr 02/14/21 02/15/21 02/15/21 13:52 05:45 05:45 WBC RBC Hgb Hct MCV MCH MCHC RDW Std Deviation RDW Coeff of Jeff Plt Count MPV Immature Gran % (Auto) Neut % (Auto) Lymph % (Auto) [place] % (Auto) Eos % (Auto) Baso % (Auto) Absolute Neuts (auto) Absolute Lymphs (auto) Nucleated RBC % Diff Path Review Reviewed Reviewed Sodium 141 Potassium 3.2 L Chloride 106 Carbon Dioxide 24.0 Anion Gap 11 BUN 48 H Creatinine 4.68 H Estim Creat Clear Calc 13.18 Est GFR (MDRD) Af Amer 16 L Est GFR (MDRD) Non-Af 13 L BUN/Creatinine Ratio 10.3 Glucose 87 Calcium 8.7 Magnesium Total Bilirubin AST ALT Alkaline Phosphatase Total Protein Albumin Globulin Albumin/Globulin Ratio 02/15/21 02/16/21 02/16/21 05:45 05:20 05:20 WBC 18.8 H RBC 3.69 L Hgb 9.4 L Hct 30.9 L MCV 83.7 MCH 25.5 L MCHC 30.4 L RDW Std Deviation 49.1 H RDW Coeff of Jeff 16.0 H Plt Count 184 MPV 11.2 Immature Gran % (Auto) 0.600 Neut % (Auto) 68.3 Lymph % (Auto) 7.2 L [place] % (Auto) 22.6 H Eos % (Auto) 0.7 Baso % (Auto) 0.6 Absolute Neuts (auto) 12.8 H Absolute Lymphs (auto) 1.35 Nucleated RBC % 0 Diff Path Review May foll Sodium 142 Potassium 3.0 L Chloride 109 H Carbon Dioxide 24.0 Anion Gap 9 BUN 46 H Creatinine 4.84 H Estim Creat Clear Calc 12.75 Est GFR (MDRD) Af Amer 15 L Est GFR (MDRD) Non-Af 12 L BUN/Creatinine Ratio 9.5 L Glucose 84 Calcium 8.6 Magnesium 2.8 H Total Bilirubin 0.40 AST 12 L ALT 9 L Alkaline Phosphatase 52 Total Protein 6.8 Albumin 2.9 L Globulin 3.9 Albumin/Globulin Ratio 0.7 L Micro: Microbiology 02/14/21 16:34 Urine Culture - Preliminary Urine, Clean Catch Gram positive organism Radiology Impression Nephrostomy Tube Change 02/15/21 10:00 IMPRESSION: 1. The percutaneous left nephrostomy catheter is in good position with the pigtail portion located in the left renal pelvis. 2. Conscious sedation protocol was followed. Electronically Signed: Jesus Carver MD at 11:11 EDT , Service support ,
[2021-02-16] MEDS: Multivitamins,Therapeutic Tablet 1 TABLET PO (08:46)
[2021-02-16] MEDS: Aspirin 81 MG TAB.CHEW PO (08:46)
[2021-02-16] MEDS: Metoprolol Tartrate 25 MG Tablet PO ×2 (11:07→21:12)
[2021-02-16] MEDS: Menthol/Lanolin/Calamine/Znox 113 GM Tube 1 APPLIC TOPICAL ×2 (11:08→21:08)
[2021-02-16] MEDS: Acetaminophen 325 MG Tablet 650 MG PO ×2 (11:12→20:56)
--- NOTE | 2021-02-16 17:23 | ONC.CONSULT ---
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 Given mixed histology and IHC showed Ki-67 positive greater than 95% disease can be considered aggressive in nature. Patient now with new pulmonary nodules identified incidentally on CT abdomen pelvis highly suspicious for metastatic deposits. Patient identified as ECOG 2. Although, he is not a candidate for new [place] based chemotherapy given current renal status and functional status, could consider immunotherapy if found to be PD-L1 positive. Engaged in extensive discussion with the patient about his goals for care and he expresses interest in treatment of disseminated malignancy. Explained treating UTI and noting an improvement of renal functioning is the highest priority at this time. Discussed proper staging which would require dedicated chest imaging and brain MRI at some point, however this is not urgent as he is not endorsing any acute neurological complaints and may be better served in the outpatient setting. Dedicated CT chest without contrast ordered. We will request molecular testing for PD-L1 and assess for improvement of his kidney function. Case discussed with Dr. Hernandez who was in agreement with aforementioned plan. (2) Urinary tract infection: Status: Acute Code(s): N39.0 - Urinary tract infection, site not specified Qualifiers: Hematuria presence: with hematuria Urinary tract infection type: site unspecified Qualified Code(s): N39.0 - Urinary tract infection, site not specified; R31.9 - Hematuria, unspecified Plan: Managed by primary team and ID, on Zosyn. (3) MERLE (acute kidney injury): Status: Acute Code(s): N17.9 - Acute kidney failure, unspecified Plan: Complicates care. Creatinine 4.84 today. (4) Pulmonary nodule, left: Status: Acute Code(s): R91.1 - Solitary pulmonary nodule (5) Anemia: Status: Acute Code(s): D64.9 - Anemia, unspecified Qualifiers: Anemia type: due to chronic kidney disease Plan: As evidenced by hemoglobin 10.3 on admission, 9.4 today. Multifactorial, chronic kidney disease. Recent iron studies obtained in the outpatient setting per his PCP indicate iron saturation of 14%. We will continue to monitor, he may benefit from parental iron. HPI Consult Data Date of Service:: 02/18/21 Attending: Dr. Bibiana Ramos MD Chief Complaint Chief Complaint: Bladder ca History of Present Illness History of Present Illness: Mr. Gallito Valencia is a very pleasant 80-year-old gentleman with a past medical history significant for chronic kidney disease, hypertension and BPH. He underwent a radical cystoscopy prostatectomy with ileal conduit on 09/18/[address] Matthew, percutaneous nephrostomy tube placement, right shortly after and has been following with urology since. Patient presented to [facility] emergency department on 02/14/2021 with complaints of nausea, vomiting and constipation. CT abdomen and pelvis without contrast demonstrated left hydronephrosis and hydroureter, ileal loop right anterior abdominal wall and progression of soft tissue density involving lower abdominal peritoneal fat (compared to CT abdomen and pelvis obtained 09/25/2020) and new finding of right pleural effusion and left pulmonary nodules. Laboratory work-up revealed leukocytosis, hemoglobin 10.3, creatinine 4.81, BUN 46. Admitted for management of UTI and acute on chronic renal dysfunction. Left nephrostomy tube placed on 02/15/2021. Patient met with palliative/hospice earlier today. Upon entering the room, patient lying supine in bed talking with daughter at the bedside. Reports his functional status has declined since his surgery last September, does participate with physical therapy and has home health coming twice a week. Patient verbalizes he would like to pursue treatment for suspected disseminated malignancy stating yes if there is anything for me. At the present time he does not endorse headache, vision changes, numbness and tingling of his extremities, exertional dyspnea, cough or hematuria. Reports mild to moderate fatigue. Describes appetite as good to fair. Chronic BLE edema. He is experiencing left sided pelvic pain x2 weeks, rates 3-4 out of 10 intermittently, exacerbated by activity or deep palpation. 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 Primary hypertension Pulmonary nodule, left Pure hypercholesterolemia Urethral stricture Home Medications simvastatin 10 mg PO QHS 05/01/16 [History Last Taken 02/13/21] aspirin 81 mg PO DAILY@0800 05/01/19 [History Last Taken 02/13/21] multivitamin 1 ea PO DAILY 12/11/19 [History Last Taken 02/13/21] vit C,P-Uw-zxcjf-lutein-zeaxan 1 ea PO BID 12/11/19 [History Last Taken 02/13/21] lorazepam 0.5 mg PO DAILY PRN PRN 11/30/20 [History Last Taken Unknown] ondansetron 8 mg PO Q6H PRN 11/30/20 [History Last Taken Unknown] metoprolol tartrate 25 mg PO BID 12/10/20 [History Last Taken 02/13/21] acetaminophen 1,000 mg PO Q6H PRN PRN tablet 01/02/21 [Rx Last Taken 02/13/21] simethicone 80 mg PO TIDPC PRN #90 tablet 01/02/21 [Rx Last Taken Unknown] emollient combination no.72 [Eucerin Intensive Repair] 1 ea TOPICAL QHS 02/14/21 [History Last Taken Unknown] Allergy/AdvReac Type Severity Reaction Status Date / Time atenolol AdvReac hypotension Verified 02/14/21 19:01 tamsulosin [From Flomax] AdvReac PT UNSURE Verified 02/14/21 19:01 OF REACTION Family History (Updated 02/14/21 @ 17:57 by Alison Otero BOTTLING SUPERVISOR, BOTTLING SUPERVISOR-C) Mother No problems noted. Father No problems noted. Surgical History (Updated 02/14/21 @ 19:32 by Rachel Kitchen) History of appendectomy History of cystoscopy History of urostomy Social History (Updated 12/06/19 @ 18:02 by Miguelito WARD, PA) Smoking Status: Former smoker alcohol intake: current alcohol intake frequency: 0-2 drinks per day Alcohol type: wine ROS ROS Narrative Negative except as documented in the interval HPI Physical Exam Const alert, oriented x3 and no apparent distress General Appearance: cooperative; Negative for in distress HEENT normocephalic and head/scalp atraumatic Eyes PERRL and no scleral icterus Neck supple and no JVD General: trachea midline Chest Chest: symmetrical chest wall rise Resp normal respiratory effort Effort and Inspection: able to speak in complete sentences Auscultation: clear to auscultation bilaterally Cardio regular rate, regular rhythm, S1 normal heart sound and S2 normal heart sound GI normal to inspection, nondistended, normoactive bowel sounds, soft to palpation and hepatosplenomegaly Palpation: tender LLQ, LUQ and RUQ Narrative: Nephrostomy tubes bilateral, ileal conduit right lower quadrant Extremity no calf tenderness General Extremity: edema bilateral (trace, SCDs on) Skin no rashes or lesions noted General Skin Exam: Negative for ecchymosis or petechiae Neuro CN's II-XII intact bilaterally Psych cooperative and affect normal Vital Signs: Vital Signs Temperature 98.3 F 02/16/21 14:31 Temperature Source Temporal 02/16/21 14:31 Pulse Rate 70 02/16/21 14:31 Pulse Strength Normal (2+) 02/16/21 08:35 Respiratory Rate 18 02/16/21 14:31 Respiratory Effort 02/16/21 14:35 Respiratory Depth Normal 02/16/21 14:35 Respiratory Pattern Normal 02/16/21 14:35 Blood Pressure 125/80 H 02/16/21 14:31 Blood Pressure Mean 95 02/16/21 14:31 Blood Pressure Source Monitor 02/16/21 14:31 Blood Pressure Position Semi-Fowlers 02/16/21 14:31 Blood Pressure Location Right Arm 02/16/21 14:31 Baseline BP 116/67 02/15/21 11:10 Pulse Ox 94 02/16/21 14:31 Oxygen Delivery Method Room Air 02/16/21 14:35 Oxygen Flow Rate (L/min) 2 02/15/21 14:35 Laboratory Data: Microbiology 02/14/21 16:34 Urine Culture - Preliminary Urine, Clean Catch Mixed Gram Positive Organisms 02/14/21 17:26 Urine Culture - Preliminary Urine, Clean Catch Mixed Gram Positive Organisms Laboratory Tests 02/16/21 02/16/21 Range/Units 05:20 05:20 WBC 18.8 H (4.4-11.0) K/mm3 RBC 3.69 L (4.6-6.2) M/mm3 Hgb 9.4 L (13.0-16.5) g/dL Hct 30.9 L (40-54) % MCV 83.7 (80-94) fL MCH 25.5 L (27.0-32.0) pg MCHC 30.4 L (32-36) g/dL RDW Std Deviation 49.1 H (35.1-43.9) fl RDW Coeff of Jeff 16.0 H (11.6-14.6) % Plt Count 184 (150-450) K/mm3 MPV 11.2 (6.2-12.0) fl Immature Gran % (Auto) 0.600 (0.0-0.9) % Neut % (Auto) 68.3 (47-70) % Lymph % (Auto) 7.2 L (19-41) % [place] % (Auto) 22.6 H (0-10) % Eos % (Auto) 0.7 (0-5) % Baso % (Auto) 0.6 (0-1) % Absolute Neuts (auto) 12.8 H (2.0-7.7) X10^3/uL Absolute Lymphs (auto) 1.35 (0.83-4.51) X10^3/uL Nucleated RBC % 0 (0-5) % Diff Path Review February Sodium 142 (136-145) mmol/L Potassium 3.0 L (3.5-5.1) mmol/L Chloride 109 H (98-107) mmol/L Carbon Dioxide 24.0 (21.0-32.0) mmol/L Anion Gap 9 (5-15) BUN 46 H (7-18) mg/dL Creatinine 4.84 H (0.70-1.30) mg/dL Estim Creat Clear Calc 12.75 ml/min Est GFR (MDRD) Af Amer 15 L (>60) mL/min Est GFR (MDRD) Non-Af 12 L (>60) mL/min BUN/Creatinine Ratio 9.5 L (10-20) RATIO Glucose 84 (74-106) mg/dL Calcium 8.6 (8.5-10.1) mg/dL Total Bilirubin 0.40 (0.20-1.00) mg/dL AST 12 L (15-37) U/L ALT 9 L (16-61) U/L Alkaline Phosphatase 52 (45-117) U/L Total Protein 6.8 (6.4-8.2) g/dL Albumin 2.9 L (3.2-5.0) g/dL Globulin 3.9 (2.2-4.2) g/dL Albumin/Globulin Ratio 0.7 L (0.9-2.4) RATIO Diagnostic Data: Diagnostic Data Abdomen/Pelvis CT 02/14/21 14:51 IMPRESSION: Moderate degree of the left hydronephrosis and left hydroureter. Double-J stent catheter is seen. Right-sided nephrostomy catheter is present. No significant hydronephrosis seen on the right side. Progressive soft tissue density in the pelvis as compared to prior study. Status post resection of the urinary bladder with an ileal loop in the right anterior abdominal wall. New right pleural effusion with left pulmonary nodules. Electronically Signed: Jesus Carver MD at 15:42 EDT , Service support , Chest X-Ray 02/14/21 16:44 IMPRESSION: Lower lung nodular airspace infiltrates and small effusion. Electronically Signed: Mingo Lemus MD at 17:51 EDT , Service support , Nephrostomy Tube Change 02/15/21 10:00 IMPRESSION: 1. The percutaneous left nephrostomy catheter is in good position with the pigtail portion located in the left renal pelvis. 2. Conscious sedation protocol was followed. Electronically Signed: Jesus Carver MD at 11:11 EDT , Service support ,
--- NOTE | 2021-02-16 17:51 | CT_ITS ---
HISTORY: pulmonary nodules, history of bladder cancer EXAMINATION: CT Chest W/O Contrast Injection TECHNIQUE: Helically acquired images were obtained of the chest. A radiation dose optimization technique was used for this scan. IV Contrast dosage and agent: None. COMPARISON: CT abdomen and pelvis 02/14/21 FINDINGS: LUNGS, PLEURA AND LARGE AIRWAYS: Bilateral pleural effusions, right side greater than left. Multiple bilateral pulmonary nodules, ranging from subcentimeter up to spiculated 2.4 cm nodule right apex and 2.6 cm spiculated nodule left lower lobe. THYROID: No thyroid lesions. HEART AND PERICARDIUM: Heart size is normal. No pericardial effusion. VESSELS: 3.6 cm ectasia ascending aorta, 3.1 cm aneurysmal dilatation descending aorta. MEDIASTINUM AND SRIDEVI: Mediastinal adenopathy. Esophagus is unremarkable. No hiatal hernia. UPPER ABDOMEN: Bilateral percutaneous nephrostomy tubes incompletely imaged. Fluid distention of multiple small bowel loops and stomach similar to prior study. BONES: No suspicious lytic or blastic abnormality. CT/Chest without Contrast IMPRESSION: Numerous bilateral spiculated pulmonary nodules consistent with metastatic disease. Bilateral pleural effusions. Individualized dose optimization techniques were used for this CT. at 2140 Reported and signed by: Alex Gruber MD Electronically Signed: Alex Gruber MD at 21:48 EDT Tel , Service support ,
[2021-02-16] MEDS: 0.9% Saline Lock 10 ML Syringe IV ×3 (18:06→22:31)
[2021-02-16] MEDS: Senna/Docusate Sodium 1 Tablet PO (21:12)
[2021-02-16] MEDS: Atorvastatin Calcium 10 MG Tablet 5 MG PO (21:13)
[2021-02-16] MEDS: Ondansetron 4 MG/2 ML Vial IV (22:31)
[2021-02-16] MEDS: Morphine 2 MG/ML Syringe 1 MG IV (22:31)
[2021-02-17] VITALS (8 sets, daily range): BP systolic 115–139; BP diastolic 58–85; PULSE 55–90; RESP 16–18; TEMP 36.5–37.3; O2SAT 92–94
[2021-02-17] MEDS: 0.9% Normal Saline 1,000 ML 100 ML IV ×3 (00:19→18:32)
[2021-02-17] MEDS: Calcium Carbonate 500 MG Tablet PO ×2 (00:23→12:33)
[2021-02-17] MEDS: proCHLORPERazine 10 MG/2 ML Vial 5 MG IV ×4 (01:56→18:32)
--- NOTE | 2021-02-17 06:16 | PN.HOSP_ITS ---
Subjective Subjective: Patient overnight with some nausea, frequent stools with de- escalation off aggressive bowel regimen. This morning is also complaining of dyspepsia. 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 Patient's not a candidate for sioux based chemotherapy given renal status and functional status but oncology is noting consideration of immunotherapy if found to be PDL L1 positive. Oncology noted intention for CT chest as well as potential brain MRI outpatient and also ordered molecular testing for PD-L1 with planned outpatient follow-up once renal function improved and UTI treated. CT chest with numerous bilateral spiculated pulmonary nodules consistent with metastatic disease with bilateral pleural effusions. Patient denies fevers, chills, emesis, chest pain or dyspnea. Objective Data Objective Data Vital Signs: Vital Signs Temp Pulse Resp BP Pulse Ox 97.7 F L 90 18 115/58 L 94 02/17/21 02:02 02/17/21 02:02 02/17/21 02:02 02/17/21 02:02 02/17/21 02:02 Oxygen Flow Rate (L/min) [7] 2 Oxygen Flow Rate (L/min) [6] 2 Oxygen Flow Rate (L/min) [5] 2 Oxygen Flow Rate (L/min) [4] 2 Oxygen Flow Rate (L/min) [3] 2 Oxygen Flow Rate (L/min) [2] 2 Oxygen Flow Rate (L/min) 2 Oxygen Delivery Method [7] Nasal Cannula Oxygen Delivery Method [6] Nasal Cannula Oxygen Delivery Method [5] Nasal Cannula Oxygen Delivery Method [4] Nasal Cannula Oxygen Delivery Method [3] Nasal Cannula Oxygen Delivery Method [2] Room Air Oxygen Delivery Method [1 ( Room Air Initial Baseline)] Oxygen Delivery Method Room Air Weight: 226 lb 15.983 oz Body Mass Index (BMI) 31.6 Intake & Output: Intake and Output for Last 24 Hours 02/15/21 02/16/21 02/17/21 23:59 23:59 23:59 Intake Total 2590 / 2590 3331.67 / 3331.67 350 / 350 Output Total 415 / 415 2295 / 2295 575 / 575 Balance 2175 / 2175 1036.67 / 1036.67 -225 / -225 Lab / Micro Data Result Diagrams: 02/17/21 05:36 02/17/21 05:36 Labs: Laboratory Results - last 24 hr 02/16/21 05:20 Sodium 142 Potassium 3.0 L Chloride 109 H Carbon Dioxide 24.0 Anion Gap 9 BUN 46 H Creatinine 4.84 H Estim Creat Clear Calc 12.75 Est GFR (MDRD) Af Amer 15 L Est GFR (MDRD) Non-Af 12 L BUN/Creatinine Ratio 9.5 L Glucose 84 Calcium 8.6 Total Bilirubin 0.40 AST 12 L ALT 9 L Alkaline Phosphatase 52 Total Protein 6.8 Albumin 2.9 L Globulin 3.9 Albumin/Globulin Ratio 0.7 L Micro: Microbiology 02/14/21 16:34 Urine, Clean Catch Urine Culture - Preliminary Mixed Gram Positive Organisms 02/14/21 17:26 Urine, Clean Catch Urine Culture - Preliminary Mixed Gram Positive Organisms Radiography Diagnostic Testing: Radiology Impression Chest CT 02/16/21 17:51 IMPRESSION: Numerous bilateral spiculated pulmonary nodules consistent with metastatic disease. Bilateral pleural effusions. Individualized dose optimization techniques were used for this CT. at 2149 Reported and signed by: Alex Gruber MD Electronically Signed: Alex Gruber MD at 21:48 EDT Tel , Service support , Physical Exam Narrative Physical Examination: General: awake, alert, oriented x 3 and cooperative, patient laying in the medical surgical bed, more fatigued and uncomfortable than day prior, notes abdominal discomfort and mild distention currently as well as dyspepsia. Skin: normal color, turgor, no icterus, cyanosis. HEENT: AT/NC, EOMI, PERRLA, mildly dry MM. Lungs: Diminished BS, > bases, moderate effort, no rales, ronchi or wheezing. Heart: Regular rate and rhythm; no gallop, rub audible. Abdomen: soft, mild diffuse generalized discomfort with again recurrent distention, hyperactive bowel sounds currently, nephrostomy tubes in place. Extremities: no cyanosis, clubbing, or edema. Neurological: patient awake, alert, oriented as noted; cognitive function appears baseline intact; pupils equally reactive to light and accomodation; cranial nerves II-XII grossly normal, moving all 4 extremities, no focal deficits, strength worsened today given acute complaints, moderately globally decreased. Psychiatric: affect appears fatigued, uncomfortable, suspected given recent events and metastatic cancer depressed, no acute evidence of anxiety feelings. Assessment & Plan Assessment/Plan (1) Urinary tract infection: QUALIFIERS: Urinary tract infection type: site unspecified Hematuria presence: with hematuria Qualified Code(s): N39.0 - Urinary tract infection, site not specified; R31.9 - Hematuria, unspecified (2) MERLE (acute kidney injury): (3) Bladder cancer: QUALIFIERS: Bladder location: unspecified site Qualified Code(s): C67.9 - Malignant neoplasm of bladder, unspecified PLAN: The patient is an 80 y/o M w/ PMHx: Bladder Cancer s/p cystectomy with ileal conduit placement and R sided nephrostomy tube, CKD stage IV, HTN, HLD, Anxiety and Depression who presents to the [facility] ED on 02/14/21 with acute on chronic constipation, abdominal discomfort with nausea and emesis. 1. Acute Complicated Urinary Infection s/p Cystectomy w/ Nephrostomy tube and ileal conduit w/ Preliminary GPC Growth->noting mixed GP organisms, history of MSSA prior: Admitted to [facility] upon ED evaluation remarkable, UCx preliminary with noted GPC possible enterococcus; however, additional cx noting mixed gram positive culture, no sensitivities on the initial noted, will follow-up, monitor I/Os, continue IV Zosyn given complicated history w/ transition as able pending sensitivities and speciation as noted or per ID discretion. Urology consulted and following, patient s/p 02/15/21 nephrostomy tube exchange, L sided. Awaiting also input #3 as noted. 2. Acute on Chronic Constipation: Admission CT abdomen and pelvis with a moderate degree of left hydronephrosis and left hydroureter, double-J stent catheter in place, right-sided nephrostomy catheter present, no significant hydronephrosis seen on the right side, progressive soft tissue density in the pelvis compared to prior study, status post resection of the urinary bladder with an ileal loop in the right anterior abdominal wall, new right pleural effusion with the left pulmonary nodules. Onset loose stools with aggressive regimen and bloating with nausea, de-escalating aggressive bowel regimen, given severity of ongoing issues with constipation will try miralax QOD and keep meta mucil, senna/docusate sodium regimen with hold parameters. 3. Bladder cancer status post cystectomy with nephrostomy tube, suspect likely metastatic colon: CT abdomen and pelvis with findings as noted above, plan 02/15/21 L sided nephrostomy tube placement per IR per Urology, notable progressive soft tissue density in the pelvis compared to prior study, new right pleural effusion with the left pulmonary nodules which given history is likely metastatic disease. 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 Patient's not a candidate for sioux based chemotherapy given renal status and functional status but oncology is noting consideration of immunotherapy if found to be PDL L1 positive. Oncology noted intention for CT chest as well as potential brain MRI outpatient and also ordered molecular testing for PD-L1 with planned outpatient follow-up once renal function improved and UTI treated. CT chest with numerous bilateral spiculated pulmonary nodules consistent with metastatic disease with bilateral pleural effusions. Palliative/Hospice consultation performed additionally. 4. Acute kidney injury: Secondary to #1, complicated by #2 and secondary to also #3. Admission BUN/Cr 46/4.81, prior baseline creatinine noted to be 3.1-3.6 primarily, 02/17/21 BUN/Cr 43/4.60 increased likely secondary to #1, #3. 02/15/21 for L sided nephrostomy tube exchange but as noted increasing trend. Urology consulted and following. 5. Hypertension: Continue home regimen including metoprolol with hold parameters, PRN hydralazine. 6. Hyperlipidemia: Continue home statin therapy. 7. Anxiety and depression: We will continue patient home as needed low-dose Ativan however given presentation and recent discussions evident depression. Palliative and hospice are consulted. 8. DVT Prophylaxis: SCDs, heparin. 9. CODE status: DNR-CCA, no intubation status. Visit Charges Inpatient E&M: 99337 Subs Hosp L3
[2021-02-17 06:58] LABS: Absolute Lymphocyte Count 1.45 X10^3/uL (0.83-4.51); Absolute Neutrophil Count 15.4 X10^3/uL (2.0-7.7); Basophil# 0.11 X10^3/uL; Basophil% 0.5 % (0-1); Eosinophils% 0.5 % (0-5); Hematocrit 34.4 % (40-54); Hemoglobin 10.3 g/dL (13.0-16.5); Lymphocyte # 1.45 X10^3/ul (0.83-4.51); Lymphocyte % 7.2 % (19-41); Mean Corp Hgb Conc 29.9 g/dL (32-36); Mean Corpuscular Hgb 25.9 pg (27.0-32.0); Mean Corpuscular Volume 86.4 fL (80-94); Mean Platelet Vol. 11.1 fl (6.2-12.0); Monocyte# 2.98 X10^3/uL; Monocyte% 14.8 % (0-10); NRBC Flagged by Analyzer 0 % (0-5); Neutrophil # 15.36 X10^3/uL (2.7-7.7); Neutrophil % 76.3 % (47-70); POSITIVE DIFFERENTIAL YES; Platelet Count 205 K/mm3 (150-450); RBC Distribution Width CV 16.2 % (11.6-14.6); RBC Distribution Width SD 51.2 fl (35.1-43.9); Red Blood Count 3.98 M/mm3 (4.6-6.2); White Blood Count 20.1 K/mm3 (4.4-11.0)
[2021-02-17 07:24] LABS: Differential Indicated SCAN CRITERIA MET
[2021-02-17 07:50] LABS: ALB/GLOB Ratio 0.7 RATIO (0.9-2.4); AST(SGOT) 13 U/L (15-37); Alanine Aminotransfer ALT/SGPT 8 U/L (16-61); Albumin, Serum 2.9 g/dL (3.2-5.0); Alkaline Phosphatase 66 U/L (45-117); Anion Gap 12 (5-15); BUN 43 mg/dL (7-18); BUN/Creat Ratio 9.3 RATIO (10-20); Calcium,Total 8.5 mg/dL (8.5-10.1); Chloride 109 mmol/L (98-107); EST Glomerular Filtration Rate 13 mL/min (>60); Est Glom Filt Rate - Afr Amer 16 mL/min (>60); Estimated Creatinine Clearance 13.41 ml/min; Glucose 104 mg/dL (74-106); Potassium 3.1 mmol/L (3.5-5.1); Protein, Total 6.9 g/dL (6.4-8.2); Sodium Level 143 mmol/L (136-145)
[2021-02-17] MEDS: Pantoprazole Sodium 20 MG Tablet PO ×2 (08:21→21:50)
[2021-02-17] MEDS: 0.9% Saline Lock 10 ML Syringe IV ×3 (08:21→18:32)
[2021-02-17] MEDS: Aspirin 81 MG TAB.CHEW PO (08:21)
[2021-02-17] MEDS: Multivitamins,Therapeutic Tablet 1 TABLET PO (08:22)
[2021-02-17] MEDS: Psyllium 1 PACKET PO (09:50)
[2021-02-17] MEDS: Senna/Docusate Sodium 1 Tablet PO ×2 (09:50→21:49)
[2021-02-17] MEDS: Metoprolol Tartrate 25 MG Tablet PO ×2 (09:51→21:51)
[2021-02-17] MEDS: Menthol/Lanolin/Calamine/Znox 113 GM Tube 1 APPLIC TOPICAL ×2 (09:51→21:48)
[2021-02-17] MEDS: Potassium Chloride Oral Tablet 20 MEQ 40 MEQ PO (12:30)
[2021-02-17] MEDS: Mag Hydrox/Al Hydrox/Simeth 30 ML UDC PO (14:06)
[2021-02-17] MEDS: Atorvastatin Calcium 10 MG Tablet 5 MG PO (21:49)
[2021-02-18] VITALS (9 sets, daily range): BP systolic 130–151; BP diastolic 75–84; PULSE 71–82; RESP 16–17; TEMP 36.7–36.8; O2SAT 91–94
[2021-02-18] MEDS: Acetaminophen 325 MG Tablet 650 MG PO (02:14)
[2021-02-18] MEDS: 0.9% Normal Saline 1,000 ML 100 ML IV ×2 (03:58→14:18)
[2021-02-18 07:20] LABS: Absolute Lymphocyte Count 1.53 X10^3/uL (0.83-4.51); Absolute Neutrophil Count 19.1 X10^3/uL (2.0-7.7); Basophil# 0.11 X10^3/uL; Basophil% 0.5 % (0-1); Eosinophil# 0.03 X10^3/uL; Eosinophils% 0.1 % (0-5); Hematocrit 33.5 % (40-54); Hemoglobin 10.1 g/dL (13.0-16.5); Lymphocyte # 1.53 X10^3/ul (0.83-4.51); Lymphocyte % 6.4 % (19-41); Mean Corp Hgb Conc 30.1 g/dL (32-36); Mean Corpuscular Hgb 25.5 pg (27.0-32.0); Mean Corpuscular Volume 84.6 fL (80-94); Monocyte# 2.94 X10^3/uL; Monocyte% 12.2 % (0-10); NRBC Flagged by Analyzer 0 % (0-5); Neutrophil # 19.07 X10^3/uL (2.7-7.7); Neutrophil % 79.1 % (47-70); POSITIVE DIFFERENTIAL YES; Platelet Count 232 K/mm3 (150-450); RBC Distribution Width SD 49.5 fl (35.1-43.9); Red Blood Count 3.96 M/mm3 (4.6-6.2); White Blood Count 24.1 K/mm3 (4.4-11.0)
[2021-02-18 07:28] LABS: Differential Indicated SCAN CRITERIA MET
[2021-02-18 07:56] LABS: ALB/GLOB Ratio 0.7 RATIO (0.9-2.4); AST(SGOT) 12 U/L (15-37); Alanine Aminotransfer ALT/SGPT 9 U/L (16-61); Albumin, Serum 2.9 g/dL (3.2-5.0); Alkaline Phosphatase 57 U/L (45-117); Anion Gap 11 (5-15); BUN 40 mg/dL (7-18); BUN/Creat Ratio 9.4 RATIO (10-20); Calcium,Total 8.6 mg/dL (8.5-10.1); Chloride 114 mmol/L (98-107); Creatinine, Serum 4.25 mg/dL (0.70-1.30); EST Glomerular Filtration Rate 14 mL/min (>60); Est Glom Filt Rate - Afr Amer 17 mL/min (>60); Estimated Creatinine Clearance 14.52 ml/min; Globulin 4.1 g/dL (2.2-4.2); Glucose 94 mg/dL (74-106); Potassium 2.7 mmol/L (3.5-5.1); Sodium Level 145 mmol/L (136-145)
[2021-02-18] MEDS: Metoprolol Tartrate 25 MG Tablet PO ×2 (09:34→20:52)
[2021-02-18] MEDS: Multivitamins,Therapeutic Tablet 1 TABLET PO (09:34)
[2021-02-18] MEDS: Aspirin 81 MG TAB.CHEW PO (09:34)
[2021-02-18] MEDS: Pantoprazole Sodium 20 MG Tablet PO ×2 (09:35→20:52)
[2021-02-18] MEDS: Senna/Docusate Sodium 1 Tablet PO ×2 (09:35→20:52)
[2021-02-18] MEDS: Psyllium 1 PACKET PO (09:35)
[2021-02-18] MEDS: Polyethylene Glycol 3350 17 GM PACKET PO (09:36)
[2021-02-18] MEDS: Bisacodyl 10 MG Suppository RC (09:36)
[2021-02-18] MEDS: Menthol/Lanolin/Calamine/Znox 113 GM Tube 1 APPLIC TOPICAL ×2 (09:36→20:54)
--- NOTE | 2021-02-18 11:43 | CASEMGMT ---
Social Work Note SW placed a call to [facility] to inquire about Hospice referral. ANIL spoke with Alfred in admissions. Alfred stated it was a Palliative Referral that they received and they will be following up with pt when pt returns home for Palliative Services. Sulma Mcclellan INTERNATIONAL RECRUITER, LOOPING MACHINE OPERATOR
[2021-02-18 13:24] LABS: Pathologist Review Reviewed
[2021-02-18 13:31] LABS: Pathologist Review Reviewed
--- NOTE | 2021-02-18 13:58 | PN.ONC_ITS ---
Subjective Subjective: Upon entering the room, the patient is lying supine in bed talking with daughter at the bedside. Reports no increase left sided pelvic pain, rates 4-5/10 worse when sitting upright or with activity. Appetite today described as poor, attributes to bloating. Physical Exam Const alert and oriented x3 General Appearance: cooperative HEENT normocephalic and head/scalp atraumatic Mouth: oral and palatal mucosa normal, No lesions and No thrush Eyes PERRL and EOMs intact bilaterally Sclera: sclera normal Neck no lymphadenopathy and supple Resp normal respiratory effort, normal air movement and clear to auscultation bilaterally Effort and Inspection: able to speak in complete sentences Auscultation: Negative for rhonchi or wheezes Cardio regular rate, regular rhythm, S1 normal heart sound, S2 normal heart sound, no murmurs and peripheral pulses 2+ throughout GI Negative for hepatosplenomegaly Inspection: ostomy present Palpation: firm and tender LLQ Percussion: tympanic to percussion Extremity normal to inspection, no clubbing, cyanosis or edema and no calf tenderness Extremity Narrative: SCDs in place Skin no rashes or lesions noted, no jaundice and no petechiae General Skin Exam: Negative for ecchymosis Neuro oriented x3 and CN's II-XII intact bilaterally Psych mental status grossly normal Attitude: calm and engaged Mood & Affect: depressed Vital Signs: Vital Signs Temperature 98.1 F 02/18/21 09:23 Temperature Source Oral 02/18/21 09:23 Pulse Rate 82 02/18/21 09:34 Pulse Strength Normal (2+) 02/18/21 10:00 Respiratory Rate 17 02/18/21 09:23 Respiratory Effort Non-Labored 02/18/21 09:59 Respiratory Depth Normal 02/18/21 09:59 Respiratory Pattern Normal 02/18/21 09:59 Blood Pressure 140/80 H 02/18/21 09:23 Blood Pressure Mean 100 02/18/21 09:23 Blood Pressure Source Monitor 02/18/21 09:23 Blood Pressure Position Semi-Fowlers 02/18/21 09:23 Blood Pressure Location Right Arm 02/18/21 09:23 Baseline BP 116/67 02/15/21 11:10 Pulse Ox 94 02/18/21 09:23 Oxygen Delivery Method Room Air 02/18/21 09:23 Oxygen Flow Rate (L/min) 2 02/15/21 14:35 Laboratory Data: Microbiology 02/14/21 16:34 Urine Culture - Preliminary Urine, Clean Catch Enterococcus faecium Yeast, not Fabi albicans 02/14/21 17:26 Urine Culture - Preliminary Urine, Clean Catch Gram positive organism Staphylococcus haemolyticus 02/14/21 16:47 Blood Culture - Preliminary Blood Culture (Wb) - Right Hand No growth in 48 hours. 02/14/21 16:43 Blood Culture - Preliminary Blood Culture (Wb) - Anticubital Left No growth in 48 hours. Laboratory Tests 02/18/21 02/18/21 02/17/21 Range/Units 06:10 06:10 05:36 WBC 24.1 H (4.4-11.0) K/mm3 RBC 3.96 L (4.6-6.2) M/mm3 Hgb 10.1 L (13.0-16.5) g/dL Hct 33.5 L (40-54) % MCV 84.6 (80-94) fL MCH 25.5 L (27.0-32.0) pg MCHC 30.1 L (32-36) g/dL RDW Std Deviation 49.5 H (35.1-43.9) fl RDW Coeff of Jeff 16.0 H (11.6-14.6) % Plt Count 232 (150-450) K/mm3 MPV 11.0 (6.2-12.0) fl Immature Gran % (Auto) 1.700 H (0.0-0.9) % Neut % (Auto) 79.1 H (47-70) % Lymph % (Auto) 6.4 L (19-41) % [place] % (Auto) 12.2 H (0-10) % Eos % (Auto) 0.1 (0-5) % Baso % (Auto) 0.5 (0-1) % Absolute Neuts (auto) 19.1 H (2.0-7.7) X10^3/uL Absolute Lymphs (auto) 1.53 (0.83-4.51) X10^3/uL Nucleated RBC % 0 (0-5) % Differential Comment COMMENT Diff Path Review May foll Reviewed Sodium 145 (136-145) mmol/L Potassium 2.7 L* (3.5-5.1) mmol/L Chloride 114 H (98-107) mmol/L Carbon Dioxide 20.0 L (21.0-32.0) mmol/L Anion Gap 11 (5-15) BUN 40 H (7-18) mg/dL Creatinine 4.25 H (0.70-1.30) mg/dL Estim Creat Clear Calc 14.52 ml/min Est GFR (MDRD) Af Amer 17 L (>60) mL/min Est GFR (MDRD) Non-Af 14 L (>60) mL/min BUN/Creatinine Ratio 9.4 L (10-20) RATIO Glucose 94 (74-106) mg/dL Calcium 8.6 (8.5-10.1) mg/dL Total Bilirubin 0.40 (0.20-1.00) mg/dL AST 12 L (15-37) U/L ALT 9 L (16-61) U/L Alkaline Phosphatase 57 (45-117) U/L Total Protein 7.0 (6.4-8.2) g/dL Albumin 2.9 L (3.2-5.0) g/dL Globulin 4.1 (2.2-4.2) g/dL Albumin/Globulin Ratio 0.7 L (0.9-2.4) RATIO /06/01 Range/Units 05:20 WBC (4.4-11.0) K/mm3 RBC (4.6-6.2) M/mm3 Hgb (13.0-16.5) g/dL Hct (40-54) % MCV (80-94) fL MCH (27.0-32.0) pg MCHC (32-36) g/dL RDW Std Deviation (35.1-43.9) fl RDW Coeff of Jeff (11.6-14.6) % Plt Count (150-450) K/mm3 MPV (6.2-12.0) fl Immature Gran % (Auto) (0.0-0.9) % Neut % (Auto) (47-70) % Lymph % (Auto) (19-41) % [place] % (Auto) (0-10) % Eos % (Auto) (0-5) % Baso % (Auto) (0-1) % Absolute Neuts (auto) (2.0-7.7) X10^3/uL Absolute Lymphs (auto) (0.83-4.51) X10^3/uL Nucleated RBC % (0-5) % Differential Comment Diff Path Review Reviewed Sodium (136-145) mmol/L Potassium (3.5-5.1) mmol/L Chloride (98-107) mmol/L Carbon Dioxide (21.0-32.0) mmol/L Anion Gap (5-15) BUN (7-18) mg/dL Creatinine (0.70-1.30) mg/dL Estim Creat Clear Calc ml/min Est GFR (MDRD) Af Amer (>60) mL/min Est GFR (MDRD) Non-Af (>60) mL/min BUN/Creatinine Ratio (10-20) RATIO Glucose (74-106) mg/dL Calcium (8.5-10.1) mg/dL Total Bilirubin (0.20-1.00) mg/dL AST (15-37) U/L ALT (16-61) U/L Alkaline Phosphatase (45-117) U/L Total Protein (6.4-8.2) g/dL Albumin (3.2-5.0) g/dL Globulin (2.2-4.2) g/dL Albumin/Globulin Ratio (0.9-2.4) RATIO Diagnostic Data: Diagnostic Data Abdomen/Pelvis CT 02/14/21 14:51 IMPRESSION: Moderate degree of the left hydronephrosis and left hydroureter. Double-J stent catheter is seen. Right-sided nephrostomy catheter is present. No significant hydronephrosis seen on the right side. Progressive soft tissue density in the pelvis as compared to prior study. Status post resection of the urinary bladder with an ileal loop in the right anterior abdominal wall. New right pleural effusion with left pulmonary nodules. Electronically Signed: Jesus Carver MD at 15:42 EDT , Service support , Chest X-Ray 02/14/21 16:44 IMPRESSION: Lower lung nodular airspace infiltrates and small effusion. Electronically Signed: Mingo Lemus MD at 17:51 EDT , Service support , Nephrostomy Tube Change 02/15/21 10:00 IMPRESSION: 1. The percutaneous left nephrostomy catheter is in good position with the pigtail portion located in the left renal pelvis. 2. Conscious sedation protocol was followed. Electronically Signed: Jesus Carver MD at 11:11 EDT , Service support , Chest CT 02/16/21 17:51 IMPRESSION: Numerous bilateral spiculated pulmonary nodules consistent with metastatic disease. Bilateral pleural effusions. Individualized dose optimization techniques were used for this CT. at [id number] Reported and signed by: Alex Gruber MD Electronically Signed: Alex Gruber MD at 21:48 EDT Tel , Service support , Assessment & Plan Assessment/Plan (1) Bladder cancer: QUALIFIERS: Bladder location: unspecified site Qualified Code(s): C67.9 - Malignant neoplasm of bladder, unspecified PLAN: Dedicated CT chest without contrast obtained 02/16/21 demonstrates multiple pulmonary nodules, largest in the right apex and LLL and bilat pleural effusions. These results were reviewed with the patient. Given mixed histology reported on path obtained from his radical cystoprostatectomy 09/14/20, a biopsy of one of these nodules is indicated. He is not endorsing any respiratory symp toms that would warrant intervention with therapeutic/diagnostic thoracentesis at this time. Again, Mr. Valencia and daughter expresses interest in treatment of his disseminated malignancy. ECOG 2. Although, he is not a candidate for [facility] based chemotherapy given current renal status and functional status, could consider immunotherapy if found to be PD-L1 positive. PDL1 requested on path fro m radical cystoprostatectomy 09/2020. Typically PDL1 has a 10-14 day TAT. Cr remains elevated above his baseline today at 4.25. At this level of renal dysfunction, CKD is a competing cause of mortality. WBC today 24.1, compared to 20.1 yesterday. Recommend awaiting evidence of improvement of UTI and renal dysfunction before proceeding with MRI brain and biopsy of lung nodule for appropriate staging. Case discussed with Dr. Hernandez, who is agreement with the aforementioned plan. (2) Lung nodules: (3) MERLE (acute kidney injury): PLAN: Complicates care, being managed by primary team
[2021-02-18 14:15] LABS: Magnesium 2.3 mg/dL (1.6-2.6)
[2021-02-18] MEDS: Linezolid 600 MG Tablet PO ×2 (14:19→20:53)
[2021-02-18] MEDS: Potassium Chloride Oral Tablet 20 MEQ 40 MEQ PO ×2 (14:19→17:23)
--- NOTE | 2021-02-18 14:19 | PN.HOSP_ITS ---
Subjective Subjective: No new complaints. Objective Data Objective Data Vital Signs: Vital Signs Temp Pulse Resp BP Pulse Ox 36.7 C 82 17 140/80 H 94 02/18/21 09:23 02/18/21 09:34 02/18/21 09:23 02/18/21 09:23 02/18/21 09:23 Oxygen Flow Rate (L/min) [7] 2 Oxygen Flow Rate (L/min) [6] 2 Oxygen Flow Rate (L/min) [5] 2 Oxygen Flow Rate (L/min) [4] 2 Oxygen Flow Rate (L/min) [3] 2 Oxygen Flow Rate (L/min) [2] 2 Oxygen Flow Rate (L/min) 2 Oxygen Delivery Method [7] Nasal Cannula Oxygen Delivery Method [6] Nasal Cannula Oxygen Delivery Method [5] Nasal Cannula Oxygen Delivery Method [4] Nasal Cannula Oxygen Delivery Method [3] Nasal Cannula Oxygen Delivery Method [2] Room Air Oxygen Delivery Method [1 ( Room Air Initial Baseline)] Oxygen Delivery Method Room Air Weight: 102.965 kg Body Mass Index (BMI) 31.6 Intake & Output: Intake and Output for Last 24 Hours 02/16/21 02/17/21 02/18/21 23:59 23:59 23:59 Intake Total 3331.67 / 3331.67 2641.67 / 2641.67 2773.33 / 2773.33 Output Total 2295 / 2295 1520 / 1520 550 / 550 Balance 1036.67 / 1036.67 1121.67 / 1121.67 2223.33 / 2223.33 Lab / Micro Data Result Diagrams: 02/18/21 06:10 02/18/21 06:10 Labs: Laboratory Results - last 24 hr 02/16/21 02/17/21 02/18/21 05:20 05:36 06:10 WBC 24.1 H RBC 3.96 L Hgb 10.1 L Hct 33.5 L MCV 84.6 MCH 25.5 L MCHC 30.1 L RDW Std Deviation 49.5 H RDW Coeff of Jeff 16.0 H Plt Count 232 MPV 11.0 Immature Gran % (Auto) 1.700 H Neut % (Auto) 79.1 H Lymph % (Auto) 6.4 L [place] % (Auto) 12.2 H Eos % (Auto) 0.1 Baso % (Auto) 0.5 Absolute Neuts (auto) 19.1 H Absolute Lymphs (auto) 1.53 Nucleated RBC % 0 Differential Comment COMMENT Diff Path Review Reviewed Reviewed February foll Sodium Potassium Chloride Carbon Dioxide Anion Gap BUN Creatinine Estim Creat Clear Calc Est GFR (MDRD) Af Amer Est GFR (MDRD) Non-Af BUN/Creatinine Ratio Glucose Calcium Magnesium Total Bilirubin AST ALT Alkaline Phosphatase Total Protein Albumin Globulin Albumin/Globulin Ratio 02/18/21 02/18/21 06:10 13:30 WBC RBC Hgb Hct MCV MCH MCHC RDW Std Deviation RDW Coeff of Jeff Plt Count MPV Immature Gran % (Auto) Neut % (Auto) Lymph % (Auto) [place] % (Auto) Eos % (Auto) Baso % (Auto) Absolute Neuts (auto) Absolute Lymphs (auto) Nucleated RBC % Differential Comment Diff Path Review Sodium 145 Potassium 2.7 L* Chloride 114 H Carbon Dioxide 20.0 L Anion Gap 11 BUN 40 H Creatinine 4.25 H Estim Creat Clear Calc 14.52 Est GFR (MDRD) Af Amer 17 L Est GFR (MDRD) Non-Af 14 L BUN/Creatinine Ratio 9.4 L Glucose 94 Calcium 8.6 Magnesium 2.3 Total Bilirubin 0.40 AST 12 L ALT 9 L Alkaline Phosphatase 57 Total Protein 7.0 Albumin 2.9 L Globulin 4.1 Albumin/Globulin Ratio 0.7 L Micro: Microbiology 02/14/21 16:34 Urine, Clean Catch Urine Culture - Preliminary Enterococcus faecium Yeast, not Fabi albicans 02/14/21 17:26 Urine, Clean Catch Urine Culture - Preliminary Gram positive organism Staphylococcus haemolyticus 02/14/21 16:47 Blood Culture (Wb) - Right Hand Blood Culture - Preliminary No growth in 48 hours. 02/14/21 16:43 Blood Culture (Wb) - Anticubital Left Blood Culture - Preliminary No growth in 48 hours. Physical Exam Narrative up at side of bed. afebrile. Const alert Resp normal respiratory effort and clear to auscultation bilaterally Cardio regular rate, regular rhythm, S1 normal heart sound and S2 normal heart sound GI normal to inspection, nondistended, normoactive bowel sounds, non-tender and non-distended Extremity normal to inspection Skin no rashes or lesions noted and no wounds Assessment & Plan Assessment/Plan (1) Urinary tract infection: QUALIFIERS: Urinary tract infection type: site unspecified Hematuria presence: with hematuria Qualified Code(s): N39.0 - Urinary tract infection, site not specified; R31.9 - Hematuria, unspecified (2) MERLE (acute kidney injury): (3) Bladder cancer: QUALIFIERS: Bladder location: unspecified site Qualified Code(s): C67.9 - Malignant neoplasm of bladder, unspecified PLAN: The patient is an 80 y/o M w/ PMHx: Bladder Cancer s/p cystectomy with ileal conduit placement and R sided nephrostomy tube, CKD stage IV, HTN, HLD, Anxiety and Depression who presents to the [facility] ED on 02/14/21 with acute on chronic constipation, abdominal discomfort with nausea and emesis. 1. Acute Complicated Urinary Infection s/p Cystectomy w/ Nephrostomy tube and ileal conduit * w/ Preliminary GPC Growth->noting mixed GP organisms, history of MSSA prior: * Admitted to [facility] upon ED evaluation remarkable, UCx preliminary with noted GPC possible enterococcus; however, additional cx noting mixed gram positive culture, * continue IV Zosyn given complicated history w/ transition as able pending sensitivities and speciation as noted or per ID discretion. Urology consulted and following, patient s/p 02/15/21 nephrostomy tube exchange, L sided. Awaiting also input #3 as noted. 2. Acute on Chronic Constipation: * Admission CT abdomen and pelvis with a moderate degree of left hydronephrosis and left hydroureter, double-J stent catheter in place, right-sided nephrost aruna catheter present, no significant hydronephrosis seen on the right side, progressive soft tissue density in the pelvis compared to prior study, status post resection of the urinary bladder with an ileal loop in the right anterior abdominal wall, new right pleural effusion with the left pulmonary nodules. * Onset loose stools with aggressive regimen and bloating with nausea, de- escalating aggressive bowel regimen, given severity of ongoing issues with constipation will try miralax QOD and keep metamucil, senna/docusate sodium regimen with hold parameters. 3. Bladder cancer status post cystectomy with nephrostomy tube, suspect likely metastatic colon: * CT abdomen and pelvis with findings as noted above, plan 02/15/21 L sided nephrostomy tube placement per IR per Urology, notable progressive soft tissue density in the pelvis compared to prior study, new right pleural effusion with the left pulmonary nodules which given history is likely metastatic disease. 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 Patient's not a candidate for new [place] based chemotherapy given renal status and functional status but oncology is noting consideration of immunotherapy if found to be PDL L1 positive. Oncology noted intention for CT chest as well as potential brain MRI outpatient and also ordered molecular testing for PD-L1 with planned outpatient follow-up once renal function improved and UTI treated. CT chest with numerous bilateral spiculated pulmonary nodules consistent with metastatic disease with bilateral pleural effusions. Palliative/Hospice consultation performed additionally. 4. Hypokalemia * replace * mag 2.3 5. Acute kidney injury: Secondary to #1, complicated by #2 and secondary to also #3. Admission BUN/Cr 46/4.81, prior baseline creatinine noted to be 3.1-3.6 primarily, 02/17/21 BUN/Cr 43/4.60 increased likely secondary to #1, #3. 02/15/21 for L sided nephrostomy tube exchange but as noted increasing trend. Urology consulted and following. 6. Hypertension: Continue home regimen including metoprolol with hold parameters, PRN hydralazine. 7. Hyperlipidemia: Continue home statin therapy. 8. Anxiety and depression: We will continue patient home as needed low-dose Ativan however given presentation and recent discussions evident depression. Palliative and hospice are consulted. 9. DVT Prophylaxis: SCDs, heparin. 10. CODE status: DNR-CCA, no intubation status. 11. DC planning: in 1-2 days. Visit Charges Inpatient E&M: 37161 Subs Hosp L2
[2021-02-18] MEDS: Ondansetron 4 MG/2 ML Vial IV ×2 (14:30→20:49)
--- NOTE | 2021-02-18 14:56 | PCM.PN.ID ---
Physical Exam Narrative Feeling ok, some abd soreness, no fever Const alert General Appearance: cooperative Resp clear to auscultation bilaterally Cardio regular rate and regular rhythm GI GI Narrative: mild firmness, distension Skin no rashes or lesions noted ID ID: Route of nutrition/ use of supplements: [] Nutritional Intake: [] IV Site: [] Mcpherson Catheter: [] Assessment & Plan Assessment/Plan (1) Urinary tract infection: QUALIFIERS: Urinary tract infection type: site unspecified Hematuria presence: with hematuria Qualified Code(s): N39.0 - Urinary tract infection, site not specified; R31.9 - Hematuria, unspecified PLAN: Now s/p L neph tube change. Ucx with enterococcus. Rising wbc. Cont zosyn, will add linezolid. Continued MERLE. Recommend covid vaccine after discharge Will follow.
[2021-02-18] MEDS: Ensure Clear 120 ML Liquid PO ×2 (17:23→20:53)
[2021-02-18] MEDS: Atorvastatin Calcium 10 MG Tablet 5 MG PO (20:53)
[2021-02-18] MEDS: proCHLORPERazine 10 MG/2 ML Vial 5 MG IV (22:37)
[2021-02-19] VITALS (8 sets, daily range): BP systolic 119–134; BP diastolic 62–81; PULSE 49–91; RESP 18; TEMP 36.4–36.8; O2SAT 93–95
[2021-02-19] MEDS: 0.9% Normal Saline 1,000 ML 100 ML IV ×3 (00:34→19:31)
[2021-02-19] MEDS: Calcium Carbonate 500 MG Tablet PO (04:22)
[2021-02-19 07:43] LABS: Anion Gap 9 (5-15); BUN 39 mg/dL (7-18); BUN/Creat Ratio 9.4 RATIO (10-20); Calcium,Total 8.5 mg/dL (8.5-10.1); Chloride 115 mmol/L (98-107); Creatinine, Serum 4.13 mg/dL (0.70-1.30); EST Glomerular Filtration Rate 15 mL/min (>60); Est Glom Filt Rate - Afr Amer 18 mL/min (>60); Estimated Creatinine Clearance 14.94 ml/min; Glucose 142 mg/dL (74-106); Potassium 2.8 mmol/L (3.5-5.1); Sodium Level 145 mmol/L (136-145)
[2021-02-19] MEDS: Aspirin 81 MG TAB.CHEW PO (09:03)
[2021-02-19] MEDS: Potassium Chloride Oral Tablet 20 MEQ 40 MEQ PO ×2 (09:04→17:21)
[2021-02-19] MEDS: Multivitamins,Therapeutic Tablet 1 TABLET PO (09:04)
[2021-02-19] MEDS: Menthol/Lanolin/Calamine/Znox 113 GM Tube 1 APPLIC TOPICAL ×2 (09:05→20:41)
[2021-02-19] MEDS: Metoprolol Tartrate 25 MG Tablet PO (09:05)
[2021-02-19] MEDS: Pantoprazole Sodium 20 MG Tablet PO ×2 (09:05→20:43)
[2021-02-19] MEDS: Ensure Clear 120 ML Liquid PO ×2 (09:05→17:21)
[2021-02-19] MEDS: Linezolid 600 MG Tablet PO ×2 (09:06→20:44)
--- NOTE | 2021-02-19 09:12 | NURSING ---
Pt requesting for this nurse to change his urostomy appliance. patient has little output from the urostomy. patient also has bilateral nephrostomy tubes. most urine from the right nephrostomy tube. the urostomy appliance was removed. peristomal skin is intact. cleansed the skin with warm water. pat dry. applied a new flat 1 piece Aurelio appliance with a small amount of stoma paste. pt tolerated well. Pt denies further needs at this time.
[2021-02-19] MEDS: Bisacodyl 10 MG Suppository RC (09:25)
--- NOTE | 2021-02-19 09:42 | PN.HOSP_ITS ---
Subjective Subjective: No events overnight. Feels well. Objective Data Objective Data Vital Signs: Vital Signs Temp Pulse Resp BP Pulse Ox 36.8 C 89 18 131/77 H 93 02/19/21 08:30 02/19/21 09:05 02/19/21 08:30 02/19/21 09:05 02/19/21 08:30 Oxygen Flow Rate (L/min) [7] 2 Oxygen Flow Rate (L/min) [6] 2 Oxygen Flow Rate (L/min) [5] 2 Oxygen Flow Rate (L/min) [4] 2 Oxygen Flow Rate (L/min) [3] 2 Oxygen Flow Rate (L/min) [2] 2 Oxygen Flow Rate (L/min) 2 Oxygen Delivery Method [7] Nasal Cannula Oxygen Delivery Method [6] Nasal Cannula Oxygen Delivery Method [5] Nasal Cannula Oxygen Delivery Method [4] Nasal Cannula Oxygen Delivery Method [3] Nasal Cannula Oxygen Delivery Method [2] Room Air Oxygen Delivery Method [1 ( Room Air Initial Baseline)] Oxygen Delivery Method Room Air Weight: 102.965 kg Body Mass Index (BMI) 31.6 Intake & Output: Intake and Output for Last 24 Hours 02/17/21 02/18/21 02/19/21 23:59 23:59 23:59 Intake Total 2641.67 / 2641.67 3723.33 / 4023.33 2585 / 2585 Output Total 1520 / 1520 650 / 650 Balance 1121.67 / 1121.67 3073.33 / 3373.33 2585 / 2585 Lab / Micro Data Result Diagrams: 02/18/21 06:10 02/19/21 06:25 Labs: Laboratory Results - last 24 hr 02/16/21 02/17/21 02/18/21 05:20 05:36 13:30 Diff Path Review Reviewed Reviewed Sodium Potassium Chloride Carbon Dioxide Anion Gap BUN Creatinine Estim Creat Clear Calc Est GFR (MDRD) Af Amer Est GFR (MDRD) Non-Af BUN/Creatinine Ratio Glucose Calcium Magnesium 2.3 02/19/21 06:25 Diff Path Review Sodium 145 Potassium 2.8 L Chloride 115 H Carbon Dioxide 21.0 Anion Gap 9 BUN 39 H Creatinine 4.13 H Estim Creat Clear Calc 14.94 Est GFR (MDRD) Af Amer 18 L Est GFR (MDRD) Non-Af 15 L BUN/Creatinine Ratio 9.4 L Glucose 142 H Calcium 8.5 Magnesium Micro: Microbiology 02/14/21 17:26 Urine, Clean Catch Urine Culture - Preliminary Coag Negative Staph Staphylococcus haemolyticus 02/14/21 16:34 Urine, Clean Catch Urine Culture - Final Vancomycin Resist. E. faecium Yeast, not Fabi albicans 02/14/21 16:47 Blood Culture (Wb) - Right Hand Blood Culture - Preliminary No growth in 48 hours. 02/14/21 16:43 Blood Culture (Wb) - Anticubital Left Blood Culture - Preliminary No growth in 48 hours. Physical Exam Narrative up in bed afebrile. Const alert Resp normal respiratory effort and clear to auscultation bilaterally Cardio regular rate, regular rhythm, S1 normal heart sound and S2 normal heart sound GI hepatosplenomegaly Neuro Sensorium / Orientation: awake and alert Assessment & Plan Assessment/Plan (1) Urinary tract infection: QUALIFIERS: Urinary tract infection type: site unspecified Hematuria presence: with hematuria Qualified Code(s): N39.0 - Urinary tract infection, site not specified; R31.9 - Hematuria, unspecified (2) MERLE (acute kidney injury): (3) Bladder cancer: QUALIFIERS: Bladder location: unspecified site Qualified Code(s): C67.9 - Malignant neoplasm of bladder, unspecified PLAN: The patient is an 80 y/o M w/ PMHx: Bladder Cancer s/p cystectomy w ith ileal conduit placement and R sided nephrostomy tube, CKD stage IV, HTN, HLD, Anxiety and Depression who presents to the [facility] ED on 02/14/21 with acute on chronic constipation, abdominal discomfort with nausea and emesis. 1. 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 Acute on Chronic Constipation: * Admission CT abdomen and pelvis with a moderate degree of left hydronephrosis and left hydroureter, double-J stent catheter in place, right-sided nephrostomy catheter present, no significant hydronephrosis seen on the right side, progressive soft tissue density in the pelvis compared to prior study, status post resection of the urinary bladder with an ileal loop in the right anterior abdominal wall, new right pleural effusion with the left pulmonary nodules. * Onset loose stools with aggressive regimen and bloating with nausea, de- escalating aggressive bowel regimen, given severity of ongoing issues with constipation will try miralax QOD and keep metamucil, senna/docusate sodium regimen with hold parameters. 3. Bladder cancer status post cystectomy with nephrostomy tube, suspect likely metastatic colon: * CT abdomen and pelvis with findings as noted above, plan 02/15/21 L sided nephrostomy tube placement per IR per Urology, notable progressive soft tissue density in the pelvis compared to prior study, new right pleural effusion with the left pulmonary nodules which given history is likely metastatic disease. 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 Patient's not a candidate for [place] based chemotherapy given renal status and functional status but oncology is noting consideration of immunotherapy if found to be PDL L1 positive. Oncology noted intention for CT chest as well as potential brain MRI outpatient and also ordered molecular testing for PD-L1 with planned outpatient follow-up once renal function improved and UTI treated. CT chest with numerous bilateral spiculated pulmonary nodules consistent with metastatic disease with bilateral pleural effusions. Palliative/Hospice consultation performed additionally. 4. Hypokalemia * replace * mag 2.3 5. Acute kidney injury: * improving * Secondary to #1, complicated by #2 and secondary to also #3. Admission BUN/Cr 46/4.81, prior baseline creatinine noted to be 3.1-3.6 primarily, 02/17/21 BUN/Cr 43/4.60 increased likely secondary to #1, #3. 02/15/21 for L sided nephrostomy tube exchange but as noted increasing trend. Urology consulted and following. 6. Hypertension: Continue home regimen including metoprolol with hold parameters, PRN hydralazine. 7. Hyperlipidemia: Continue home statin therapy. 8. Anxiety and depression: We will continue patient home as needed low-dose Ativan however given presentation and recent discussions evident depression. Palliative and hospice are consulted. 9. DVT Prophylaxis: SCDs, heparin. 10. CODE status: DNR-CCA, no intubation status. 11. DC planning: in 1-2 days. Visit Charges Inpatient E&M: 11872 Subs Hosp L2
[2021-02-19 14:25] LABS: Pathologist Review Reviewed
[2021-02-19] MEDS: Atorvastatin Calcium 10 MG Tablet 5 MG PO (20:42)
[2021-02-19] MEDS: Senna/Docusate Sodium 1 Tablet PO (20:44)
[2021-02-20 03:00] VITALS: BP 129/69; PULSE 75; RESP 18; TEMP 36.6; O2SAT 94
[2021-02-20] MEDS: 0.9% Normal Saline 1,000 ML 100 ML IV (05:15)
[2021-02-20 08:02] LABS: Anion Gap 7 (5-15); BUN 38 mg/dL (7-18); BUN/Creat Ratio 8.9 RATIO (10-20); Calcium,Total 8.5 mg/dL (8.5-10.1); Chloride 120 mmol/L (98-107); Creatinine, Serum 4.29 mg/dL (0.70-1.30); EST Glomerular Filtration Rate 14 mL/min (>60); Est Glom Filt Rate - Afr Amer 17 mL/min (>60); Estimated Creatinine Clearance 14.38 ml/min; Glucose 139 mg/dL (74-106); Potassium 3.1 mmol/L (3.5-5.1); Sodium Level 146 mmol/L (136-145)
[2021-02-20 09:00] VITALS: BP 136/61; PULSE 91; RESP 18; TEMP 36.9; O2SAT 95
[2021-02-20] MEDS: Ensure Clear 120 ML Liquid PO (09:29)
[2021-02-20] MEDS: Potassium Chloride Oral Tablet 20 MEQ 40 MEQ PO (09:29)
[2021-02-20 09:30] VITALS: PULSE 91
[2021-02-20] MEDS: Multivitamins,Therapeutic Tablet 1 TABLET PO (09:30)
[2021-02-20] MEDS: Menthol/Lanolin/Calamine/Znox 113 GM Tube 1 APPLIC TOPICAL (09:30)
[2021-02-20] MEDS: Metoprolol Tartrate 25 MG Tablet PO (09:30)
[2021-02-20] MEDS: Aspirin 81 MG TAB.CHEW PO (09:30)
[2021-02-20] MEDS: Linezolid 600 MG Tablet PO (09:30)
[2021-02-20] MEDS: Pantoprazole Sodium 20 MG Tablet PO (09:30)
--- NOTE | 2021-02-20 09:39 | PCM.DC ---
Discharge Instructions Diet Discharge Diet: No restrictions Activity Discharge Activity: Return to Normal Activity Dressing / Incision Call your doctor if your incision/area has: Continuous Slow Oozing, Sudden Increased Bleeding, Increased Pain/ Swelling, Increased Redness, Foul Smelling Discharge and Swelling at the incision site Call your doctor if you observe: Fever of 101 or Higher Follow Up Care Test Results: Test results from this visit will be discussed in further detail at your follow-up appointment, if applicable. Discharge Plan Admission Admit Date/Time: 02/14/21 18:11 Attending Provider: aRdames Duke Primary Care Provider: Kim Torres Consulting Providers: Antoni Travis ; Aramis Matthew ; Sunshine Holliday ; Christoph Mendez ; Yasmin Boykin ; Haylee Torres ; Radha Schultz ; Jenn Winkler SENIOR ANIMATOR ; Fernando Oden ; Christoph Luna ; Tigre Hernandez ; Tova Buitrago ; Antoni Strogn ; Nando Kwong ; Patricio Farmer ; Donnie Pimentel ; Angi Howe SENIOR ANIMATOR Discharge Orders/Prescriptions Prescriptions: New linezolid 600 mg Tablet 600 mg PO BID Qty: 14 RF: 0 Continued simvastatin 10 MG tablet 10 mg PO QHS RF: 0 aspirin 81 MG tablet,chewable 81 mg PO DAILY@0800 RF: 0 multivitamin 1 EACH tablet 1 ea PO DAILY RF: 0 vit C,B-Ia-gtskw-lutein-zeaxan 1 EACH capsule 1 ea PO BID RF: 0 lorazepam 0.5 MG tablet 0.5 mg PO DAILY PRN PRN (Reason: Anxiety) RF: 0 ondansetron 8 MG tablet,disintegrating 8 mg PO Q6H PRN (Reason: Nausea) RF: 0 metoprolol tartrate 25 MG tablet 25 mg PO BID RF: 0 acetaminophen 500 MG tablet 1,000 mg PO Q6H PRN PRN (Reason: Pain Score 1-10) RF: 0 simethicone 80 MG tablet 80 mg PO TIDPC PRN (Reason: bettie abd.) Qty: 90 RF: 0 Eucerin Intensive Repair Lotion 1 ea TOPICAL QHS RF: 0 Referrals / Follow Up: Tigre Hernandez MD [NON-STAFF] - Within 2 Weeks Aramis Matthew MD [STAFF PHYSICIAN] - Within 1 Month Kim Torres MD [Primary Care Provider] - Within 1 Week Disposition Disposition (needs filled in before D/C Order can be placed): Home Health Service
--- NOTE | 2021-02-20 09:48 | PCM.DC.SUM ---
Providers Date of Admission: 02/14/21 Primary Care Physician: Dr. Kim Torres MD Consultations 02/15/21 06:41 Consult: Urology Routine Consulting Provider: Aramis Matthew Reason for Consult: Complicated UTI, Dr. Matthew patient, recent urostomy change 02/12 EMERGENT Consult: No Notified: Yes Date Notified:: 02/14/21 Time Notified: 19:00 Method of Notification: Verbal Comments:: MD SAW PT IN ER 02/1402/15/21 06:42 Consult: Infectious Disease Routine Consulting Provider: Antoni Travis Reason for Consult: Complicated UTI, nephrostomy tube, recent staph, pseudomonas EMERGENT Consult: No MD Notified: Yes Date Notified:: 02/15/21 Time Notified: 06:42 Method of Notification: Answering Service 02/15/21 14:38 Consult: Hospice / Palliative Care Routine Consulting Provider: [facility] Reason for Consult: Bladder CA, not chemo candidate, progressive decline, patient amenable. EMERGENT Consult: No MD Notified: Yes Date Notified:: 02/15/21 Time Notified: 15:24 Method of Notification: Answering Service 02/16/21 07:20 Consult: Oncology/Hematology Routine Consulting Provider: [facility] Reason for Consult: metastatic bladder cancer EMERGENT Consult: No MD Notified: Yes Date Notified:: 02/16/21 Time Notified: 07:20 Method of Notification: Page Method of Consult:: In-Person Comments:: spoke w/Debby Howe Reason For Visit: UTI AND CONSTIPATION Diagnosis Discharge Diagnosis (1) Urinary tract infection: Status: Acute Code(s): N39.0 - Urinary tract infection, site not specified Qualifiers: Urinary tract infection type: site unspecified Hematuria presence: with hematuria Qualified Code(s): N39.0 - Urinary tract infection, site not specified; R31.9 - Hematuria, unspecified (2) MERLE (acute kidney injury): Status: Acute Code(s): N17.9 - Acute kidney failure, unspecified (3) Bladder cancer: Status: Chronic Code(s): C67.9 - Malignant neoplasm of bladder, unspecified Qualifiers: Bladder location: unspecified site Qualified Code(s): C67.9 - Malignant neoplasm of bladder, unspecified Medications at Discharge Home Medications simvastatin 10 mg PO QHS 05/01/16 aspirin 81 mg PO DAILY@0800 05/01/19 multivitamin 1 ea PO DAILY 12/11/19 vit C,E-Km-hlofa-lutein-zeaxan 1 ea PO BID 12/11/19 lorazepam 0.5 mg PO DAILY PRN PRN 11/30/20 ondansetron 8 mg PO Q6H PRN 11/30/20 metoprolol tartrate 25 mg PO BID 12/10/20 acetaminophen 1,000 mg PO Q6H PRN PRN tablet 01/02/21 simethicone 80 mg PO TIDPC PRN #90 tablet 01/02/21 Eucerin Intensive Repair 1 ea TOPICAL QHS 02/14/21 linezolid 600 mg PO BID #14 tab 02/20/21 Hospital Course Summary of Care Provided Minutes Spent on Discharge: 35 Hospital Course: 1. Acute Complicated Urinary Infection s/p Cystectomy w/ Nephrostomy tube and ileal conduit Cannot rule if associated with nephrostomy tubes, but nephrostomy tubes were changed out Admitted to [facility] upon ED evaluation remarkable, UCx preliminary with noted GPC possible enterococcus; however, additional cx noting mixed gram positive culture, IV pip/tazo and linezolid UCx growing out PRODUCTION GRIP and S. haemolyticus. UCx on showed VRE DW ID, plan for 7 more days of linezolid 2. Acute on Chronic Constipation: resolved now with loose stools. Admission CT abdomen and pelvis with a moderate degree of left hydronephrosis and left hydroureter, double-J stent catheter in place, right-sided nephrostomy catheter present, no significant hydronephrosis seen on the right side, progressive soft tissue density in the pelvis compared to prior study, status post resection of the urinary bladder with an ileal loop in the right anterior abdominal wall, new right pleural effusion with the left pulmonary nodules. Onset loose stools with aggressive regimen and bloating with nausea, de-escalating aggressive bowel regimen, given severity of ongoing issues with constipation will try miralax QOD and keep metamucil, senna/docusate sodium regimen with hold parameters. 3. Bladder cancer status post cystectomy with nephrostomy tube, suspect likely metastatic colon: CT abdomen and pelvis with findings as noted above, plan 02/15/21 L sided nephrostomy tube placement per IR per Urology, notable progressive soft tissue density in the pelvis compared to prior study, new right pleural effusion with the left pulmonary nodules which given history is likely metastatic disease. 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 Patient's not a candidate for [place] based chemotherapy given renal status and functional status but oncology is noting consideration of immunotherapy if found to be PDL L1 positive. Oncology noted intention for CT chest as well as potential brain MRI outpatient and also ordered molecular testing for PD-L1 with planned outpatient follow-up once renal function improved and UTI treated. CT chest with numerous bilateral spiculated pulmonary nodules consistent with metastatic disease with bilateral pleural effusions. Palliative/Hospice consultation performed additionally. 4. Hypokalemia improving mag 2.3 5. Acute kidney injury: improving Secondary to #1, complicated by #2 and secondary to also #3. Admission BUN/Cr 46/4.81, prior baseline creatinine noted to be 3.1-3.6 primarily, 02/17/21 BUN/Cr 43/4.60 increased likely secondary to #1, #3. 02/15/21 for L sided nephrostomy tube exchange but as noted increasing trend. Urology consulted and following. follow up with nephrology as outpt. 6. Hypertension: Continue home regimen including metoprolol with hold parameters, PRN hydralazine. 7. Hyperlipidemia: Continue home statin therapy. 8. Anxiety and depression: We will continue patient home as needed low-dose Ativan however given presentation and recent discussions evident depression. Palliative and hospice are consulted. Physical Exam Const alert General Appearance: cooperative and comfortable Orientation / Consciousness: awake and oriented to person Resp normal respiratory effort and clear to auscultation bilaterally Cardio regular rate, regular rhythm, S1 normal heart sound and S2 normal heart sound Neuro oriented x3 Sensorium / Orientation: awake and alert ABG / Lab / Microbiology Data Result Diagrams: 02/18/21 06:10 02/20/21 07:34 Laboratory: Laboratory Results - last 24 hr 02/18/21 02/20/21 06:10 07:34 Diff Path Review Reviewed Sodium 146 H Potassium 3.1 L Chloride 120 H Carbon Dioxide 19.0 L Anion Gap 7 BUN 38 H Creatinine 4.29 H Estim Creat Clear Calc 14.38 Est GFR (MDRD) Af Amer 17 L Est GFR (MDRD) Non-Af 14 L BUN/Creatinine Ratio 8.9 L Glucose 139 H Calcium 8.5 Microbiology: Microbiology 02/14/21 17:26 Urine Culture - Final Urine, Clean Catch Coag Negative Staph Staphylococcus haemolyticus 02/14/21 16:43 Blood Culture - Final Blood Culture (Wb) - Anticubital Left No growth in 5 days. 02/14/21 16:47 Blood Culture - Final Blood Culture (Wb) - Right Hand No growth in 5 days. 02/14/21 16:34 Urine Culture - Final Urine, Clean Catch Vancomycin Resist. E. faecium Yeast, not Fabi albicans Microbiology 02/14/21 17:26 Urine, Clean Catch Urine Culture - Final Coag Negative Staph Staphylococcus haemolyticus 02/14/21 16:43 Blood Culture (Wb) - Anticubital Left Blood Culture - Final No growth in 5 days. 02/14/21 16:47 Blood Culture (Wb) - Right Hand Blood Culture - Final No growth in 5 days. 02/14/21 16:34 Urine, Clean Catch Urine Culture - Final Vancomycin Resist. E. faecium Yeast, not Fabi albicans D/C Instructions Discharge Diet: No restrictions Discharge Activity: Return to Normal Activity Call your doctor if your incision/area has: Continuous Slow Oozing, Sudden Increased Bleeding, Increased Pain/ Swelling, Increased Redness, Foul Smelling Discharge and Swelling at the incision site Call your doctor if you observe: Fever of 101 or Higher Meaningful Use Info Meaningful Use Diagnoses (Choose all that apply): None applicable Discharge Plan Admission Admit Date/Time: 02/14/21 18:11 Attending Provider: Radames Duke Primary Care Provider: Kim Torres Consulting Providers: Antoni Travis ; Aramis Matthew ; Sunshine Holliday ; Christoph Mendez ; Yasmin Boykin ; Haylee Torres ; Radha Schultz ; Jenn Winkler NET WASHER ; Fernando Oden ; Christoph Luna ; Tigre Hernandez ; Tova Buitrago ; Antoni Strong ; Nando Kwong ; Patricio Farmer ; Donnie Pimentel ; Angi Howe NP Discharge Orders/Prescriptions Prescriptions: New linezolid 600 mg Tablet 600 mg PO BID Qty: 14 RF: 0 Continued simvastatin 10 MG tablet 10 mg PO QHS RF: 0 aspirin 81 MG tablet,chewable 81 mg PO DAILY@0800 RF: 0 multivitamin 1 EACH tablet 1 ea PO DAILY RF: 0 vit C,T-Mt-xqzcp-lutein-zeaxan 1 EACH capsule 1 ea PO BID RF: 0 lorazepam 0.5 MG tablet 0.5 mg PO DAILY PRN PRN (Reason: Anxiety) RF: 0 ondansetron 8 MG tablet,disintegrating 8 mg PO Q6H PRN (Reason: Nausea) RF: 0 metoprolol tartrate 25 MG tablet 25 mg PO BID RF: 0 acetaminophen 500 MG tablet 1,000 mg PO Q6H PRN PRN (Reason: Pain Score 1-10) RF: 0 simethicone 80 MG tablet 80 mg PO TIDPC PRN (Reason: bettie abd.) Qty: 90 RF: 0 Eucerin Intensive Repair Lotion 1 ea TOPICAL QHS RF: 0 Referrals / Follow Up: Audra Engle MD [STAFF PHYSICIAN] - Within 1 Month Tigre Hernandez MD [NON-STAFF] - Within 2 Weeks Aramis Matthew MD [STAFF PHYSICIAN] - Within 1 Month Kim Torres MD [Primary Care Provider] - Within 1 Week Disposition Disposition (needs filled in before D/C Order can be placed): Home Health Service Visit Charges Inpatient E&M: 35523 Disch Hosp
--- NOTE | 2021-02-20 10:06 | CASEMGMT ---
Addendum entered by Maryann Smith 02/20/21 10:32: VM received from Gustavo @ [facility] pharmacy. Linezolid has been e-scribed and requires a prior auth. Call placed to [facility] and spoke w/J@ [phone]. Prior auth obtained/medication approved: Reference #: [id number] Call placed back to [facility] and he was made aware. He ran the Linezolid thru insurance again. Cost is now: ~ $381 that would go towards deductible. Per [facility] retail pharmacy, the discounted avila is $35.71. Pt made aware and states the $35.71 is affordable and agreeable to getting it thru [facility] @ discounted avila. Original Note: LIAM VAZQUEZ NOTE: Pt being discharged. Call placed to [facility] and she was made aware. Palliative Care also notified of same via DB. kAua CARBALLO RN, CM
--- NOTE | 2021-02-20 11:03 | PHA.DC.MC ---
Pharmacy Service has performed discharge medication reconciliation and counseling for this patient. 1. LINEZOLID 600MG PO BID X 7 DAYS The patient's discharge medication list was reviewed for discrepancies and discrepancies were resolved. This [facility] spoke with RN GEORGE Wolf pt was concerned about cost if filled at [facility] retail. She spoke with pharmacy and avila is $35 using discount card at pharmacy. Pt okay with avila. Home Medications simvastatin 10 mg PO QHS 05/01/16 aspirin 81 mg PO DAILY@0800 05/01/19 multivitamin 1 ea PO DAILY 12/11/19 vit C,Z-Zw-qjikx-lutein-zeaxan 1 ea PO BID 12/11/19 lorazepam 0.5 mg PO DAILY PRN PRN 11/30/20 ondansetron 8 mg PO Q6H PRN 11/30/20 metoprolol tartrate 25 mg PO BID 12/10/20 acetaminophen 1,000 mg PO Q6H PRN PRN tablet 01/02/21 simethicone 80 mg PO TIDPC PRN #90 tablet 01/02/21 Eucerin Intensive Repair 1 ea TOPICAL QHS 02/14/21 linezolid 600 mg PO BID #14 tab 02/20/21 The patient was counseled on the following discharge medications and changes in medications for homegoing were reviewed. The Reason for Use, instructions for use, and potential side effects were reviewed for all new medications. The patient's questions regarding all of their medications were answered. The patient was able to verbally demonstrate an understanding of their discharge medications.
--- NOTE | 2021-02-20 11:15 | PCM.OPRPT ---
Problems Associated Problem List Diagnoses (1) BPH (benign prostatic hyperplasia): Report of Operation Date of Procedure: 02/20/21 Pre-Operative Diagnosis: BPH with obstruction Post-Operative Diagnosis: Same Surgery/Procedure Performed:: Transurethral resection of prostate Description of Surgical Findings:: In the preoperative setting I discussed with the patient how the surgery would be done with expect afterwards. We discussed how a prostate resection is done and we discussed the risk of the surgery including, bleeding, infection, retrograde ejaculation, changes with ejaculation or intercourse,. We discussed the possibility that the resection of the prostate may not alleviate his urinary symptoms. We discussed the small risk of developing scar tissue along the urethral channel and strictures. We also discussed the chance of the prostate could grow back and he may need further surgery or treatment in the future for prostate problems. Patient was taken back to the operating room, timeout procedure was performed, he was identified and marked and placed on the operating room table. He underwent general anesthesia. He was placed in dorsolithotomy position. Penis and testicles were prepped and draped in usual sterile fashion. Went into the bladder using the visual obturator with a resectoscope. Once inside the bladder identified the right and left ureteral orifice. I then identified the prostate and the anatomy of the prostate. I marked out the area of the sphincter and the verumontanum was identified. I then proceeded with the prostate resection first resected the median lobe. And then resected the right lobe of the prostate. Then to resect the left lobe of the prostate. I then resected the apical tissue of the prostate. Made sure that there was no injury to the sphincter or the verumontanum was still intact. At the end of the resection all the chips were Ellik out of the bladder. I then identified the left and right ureteral orifice and these were confirmed to be in good position and effluxing and not injured. The resectoscope was removed, a 22 Vietnamese catheter was placed into the bladder on continuous irrigation. And the urine was fairly light pink color and draining normally. He was taken back to the PACU in good condition. Type of Anesthesia: General Drains: 22 Vietnamese three-way cath Admit VTE Documentation VTE Mechan Device Prophylaxis: SCD's
[2021-02-20] MEDS: Loperamide 2 MG Capsule PO (13:27)
[2021-02-20 13:28] VITALS: BP 113/55; PULSE 92; RESP 18; TEMP 36.3; O2SAT 97
[2021-02-20 17:41] VITALS: BP 152/79; PULSE 99; RESP 20; TEMP 36.3; O2SAT 95
--- NOTE | 2021-02-21 15:45 | CASEMGMT ---
LIAM VAZQUEZ Discharge Follow-Up Phone Call. Mandy: 14 Strata: 4 Discharge Date: 02/20/21 Adm Dx: UTI and Constipation Call to pt to inquire about how he has been doing since being discharged from the hospital. Pt states he is still having some bloating and has had some weight gain. Pt states that [facility] was out to see him today and she was aware. He voices appreciation of [facility] and states they were very accommodating. He states they plan on calling him tomorrow and then plan to see him Sat and Sun. He denies having any questions about the discharge instructions. He is aware of all of the appts scheduled. He was able to leaf size picker 4 tabs of Zyvox from [facility] yesterday and they plan to return to leaf size picker the remaining 10 tabs this PM, as the pharmacy did not have enough to fill the complete order yesterday. He denies having any questions or needs. Akua CARBALLO RN, CM
== END 2021-02-20 17:42 | disposition home health service (06) | DRG 690 ==
LOC: ED 17:45 → MS3 20:29
PROVIDERS: Family Medicine; Admitting Provider Family Medicine; Emergency Provider Student in an Organized Health Care Education/Training Program; PCP Internal Medicine
DX: N13.6 Pyonephrosis (principal); C78.02 Secondary malignant neoplasm of left lung; C78.01 Secondary malignant neoplasm of right lung; J90 Pleural effusion, not elsewhere classified; N13.8 Other obstructive and reflux uropathy; I12.0 Hypertensive chronic kidney disease with stage 5 chronic kidney disease or end stage renal disease; B95.61 Methicillin susceptible Staphylococcus aureus infection as the cause of diseases classified elsewhere; C67.8 Malignant neoplasm of overlapping sites of bladder; N18.5 Chronic kidney disease, stage 5; N40.1 Benign prostatic hyperplasia with lower urinary tract symptoms; N43.3 Hydrocele, unspecified; N17.9 Acute kidney failure, unspecified; D63.1 Anemia in chronic kidney disease; K59.09 Other constipation; E78.00 Pure hypercholesterolemia, unspecified; E87.6 Hypokalemia; E66.9 Obesity, unspecified; F32.9 Major depressive disorder, single episode, unspecified; F41.9 Anxiety disorder, unspecified; Z68.31 Body mass index [BMI] 31.0-31.9, adult; Z66 Do not resuscitate; Z93.6 Other artificial openings of urinary tract status; Z90.6 Acquired absence of other parts of urinary tract; Z90.79 Acquired absence of other genital organ(s); Z90.89 Acquired absence of other organs; Z79.82 Long term (current) use of aspirin; Z79.899 Other long term (current) drug therapy; Z87.442 Personal history of urinary calculi; Z85.46 Personal history of malignant neoplasm of prostate; Z87.891 Personal history of nicotine dependence
CPT/HCPCS: 36415; 50432; 50435; 71045; 71250; 74176; 80048; 80053; 81001; 83605; 83735; 85025; 85610; 87040; 87077; 87086; 87088; 87186; 97110; 97162; 97166; 97530; 97535; 99155; 99156; 99284; J7030; J7040; J7050; Q9967; A4216; J2405

== ENCOUNTER 2021-02-23 04:29 | Inpatient (IN) | payer MEDICARE, OTHER, SELFPAY ==
[2021-02-23] VITALS (16 sets, daily range): BP systolic 98–132; BP diastolic 52–82; PULSE 64–124; RESP 14–23; TEMP 35.3–37.1; O2SAT 93–98; BMI 36.8; BMI 35.2
--- NOTE | 2021-02-23 04:36 | CT_ITS ---
HISTORY: vertigo Technique:CT Head or Brain W/O Contrast Injection. Sagittal and coronal 2-D reformats Number of Images including paperwork:253 Comparison: None available. Findings: Periventricular deep and subcortical white matter disease is present. Paranasal sinuses are clear. The brain is atrophic. Calcific ASCVD involves intracranial arteries. No acute intracranial edema or hemorrhage. No acute abnormality of orbits. Middle ear cavities and mastoid air cells are well aerated. Skull is normal. CT/Brain/Head without Contrast IMPRESSION: No acute intracranial abnormality. Chronic changes as above. ASPECT 10. Individualized dose optimization techniques were used for this CT. at 7560 Reported and signed by: Dav Darling MD Electronically Signed: Dav Darling MD at 5:36 EDT Tel , Service support ,
--- NOTE | 2021-02-23 04:39 | EKG12_ITS ---
Test Reason : GENERAL Blood Pressure : / mmHG Vent. Rate : 085 BPM Atrial Rate : 087 BPM P-R Int : 194 ms QRS Dur : 092 ms QT Int : 442 ms P-R-T Axes : -20 -16 006 degrees QTc Int : 525 ms Normal sinus rhythm with PVC's Left ventricular hypertrophy with repolarization abnormality Cannot rule out Septal infarct , age undetermined Inferior infarct , age undetermined Prolonged QT Abnormal ECG Confirmed by LILLY GARCIA, AMY ([id number]), videotape editor REGINALDO ERNST ([id number]) on 02/26/2021 9:33:24 AM Referred By: BB Confirmed By:AMY CARR MD
--- NOTE | 2021-02-23 04:41 | EX.ED.DYSGE1 ---
HPI History of Present Illness Chief Complaint: General Illness Informant: patient Onset/Context/Timing Onset: Today Context: Sudden Onset (woke up from sleep w/ sx; unk exact time, maybe 2-3 hrs ago) Timing: Intermittent Quality: spinning dizziness Location: head Current Severity: Gone Maximum Severity: Severe Worsened by: unk Relieved by: unk; no medications taken/given Associated Symptoms Associated Symptoms: n/v, headache; no chest pain, sob,abd pain Narrative Narrative: 80-year-old male presenting with dizziness/vertigo and feeling weak. Woke up like this. Not sure exactly the last time he was normal but states he went to bed without feeling the symptoms. He denies any lateralizing neurologic symptoms in his arms or legs. He has been vomiting as a result of the symptoms. He denies any head injury recently. He takes aspirin, no anticoagulants. No history of stroke. He has a history of bladder cancer, his bladder was resected and he has a urostomy, and for unknown exact reasons other than kidney is not draining, he has nephrostomy tubes on both sides, he states the one on the left was placed more recently. He states he has been on antibiotics for about a week because of an infection in 1, and he is still taking the antibiotic, he does not know which one. He states since he has been on the antibiotic, he has had swelling in both of his legs and that is new. When asked how the infection was discovered, i.e. what kind of symptoms he had, what the urine looks like or how it changed, etc., the patient states I do not know, the doctors just told me I had one. 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 Primary hypertension Pure hypercholesterolemia Urethral stricture Home Medications simvastatin 10 mg PO QHS 05/01/16 [History Last Taken 02/13/21] aspirin 81 mg PO DAILY@0800 05/01/19 [History Last Taken 02/13/21] multivitamin 1 ea PO DAILY 12/11/19 [History Last Taken 02/13/21] vit C,I-Mz-jruxf-lutein-zeaxan 1 ea PO BID 12/11/19 [History Last Taken 02/13/21] lorazepam 0.5 mg PO DAILY PRN PRN 11/30/20 [History Last Taken Unknown] ondansetron 8 mg PO Q6H PRN 11/30/20 [History Last Taken Unknown] metoprolol tartrate 25 mg PO BID 12/10/20 [History Last Taken 02/13/21] acetaminophen 1,000 mg PO Q6H PRN PRN tablet 01/02/21 [Rx Last Taken 02/13/21] Eucerin Intensive Repair 1 ea TOPICAL QHS 02/14/21 [History Last Taken Unknown] linezolid [Zyvox] 600 mg PO BID 02/23/21 [History Last Taken Unknown] simethicone [Gas Relief (simethicone)] 80 mg PO TIDPC PRN 02/23/21 [History Last Taken Unknown] Allergy/AdvReac Type Severity Reaction Status Date / Time atenolol AdvReac hypotension Verified 02/14/21 19:01 tamsulosin [From Flomax] AdvReac PT UNSURE Verified 02/14/21 19:01 OF REACTION Family History (Updated 02/14/21 @ 17:57 by Alison Otero NP, [employer]) Mother No problems noted. Father No problems noted. Surgical History History of appendectomy History of cystoscopy History of urostomy Social History Smoking Status: Former smoker alcohol intake: current alcohol intake frequency: 0-2 drinks per day Alcohol type: wine ROS ROS ED Constitutional Constitutional ED: Reports malaise; Denies chills or fever(s) Eyes Eyes: Denies change in vision or diplopia ENT ENT ED: Denies rhinorrhea or sore throat Cardiovascular Cardiovascular: Denies chest pain or palpitations Respiratory/Chest Respiratory/Chest: Denies cough or dyspnea Gastrointestinal Gastrointestinal: Reports nausea and vomiting; Denies abdominal pain or diarrhea Genitourinary Genitourinary ED: Denies dysuria or hematuria Musculoskeletal Musculoskeletal: Denies back pain or neck pain Integumentary Denies abscess or rash Neurologic Neurologic: Reports as per HPI, dizziness and headache(s); Denies loss of vision, other visual disturbances, paresthesias or weakness Psychiatric Psychiatric: Denies anxiety or suicidal thoughts EXAM Physical Exam Const Vital Signs: 02/23/21 04:31 02/23/21 04:37 02/23/21 04:43 Temperature 98.5 F 97.8 F Temperature Source Temporal Oral Pulse Rate 64 124 H Respiratory Rate 16 23 H Respiratory Effort Normal Respiratory Pattern Normal Blood Pressure 112/73 112/73 Blood Pressure Mean 86 86 Pulse Ox 95 95 Oxygen Delivery Method Nasal Cannula Nasal Cannula Oxygen Flow Rate (L/min) 2 2 02/23/21 05:39 02/23/21 06:53 02/23/21 06:54 Temperature 97.8 F 98.7 F 98.5 F Temperature Source Temporal Oral Temporal Pulse Rate 77 72 74 Respiratory Rate 16 16 14 Respiratory Effort Respiratory Pattern Blood Pressure 118/63 122/77 H 122/77 H Blood Pressure Mean 81 92 92 Pulse Ox 94 98 98 Oxygen Delivery Method Room Air Room Air Room Air Oxygen Flow Rate (L/min) Positive well nourished and well developed General Appearance ED: well developed and NAD HEENT Reports TM's clear and moist mucous membranes normocephalic and atraumatic; Negative for trauma or tenderness Tympanic Membrane ED: Yes TM's clear Eyes PERRL and EOMs intact bilaterally EOM: nystagmus horizontal, with right lateral gaze, with left lateral gaze (Worse and nonfatigable) and other (No vertical or rotatory nystagmus) Neck full ROM, no lymphadenopathy and supple Resp normal respiratory effort and clear to auscultation bilaterally Cardio regular rate, regular rhythm and no murmurs GI non-tender and non-distended Auscultation: normoactive bowel sounds Palpation: soft Back/Spine no CVA tenderness General Back: other FROM Extremity normal to inspection General Extremety ED: Negative for edema, pulses abnormal or tenderness General Extremity: Negative for edema or pulses abnormal Neuro oriented x3, CN's II-XII intact bilaterally and no sensory deficits noted Neuro Narrative: Not able to perform Clifton-Hallpike; with simply turning patient's head to look at his tympanic membranes, patient has sudden onset of vertigo and begins vomiting Sensorium / Orientation: awake and alert Motor Exam: strength 5/5 throughout Skin no rashes or lesions noted and no wounds MDM MDM MDM Narrative Medical decision making narrative: Patient was recently discharged from this hospital for infection and complications regarding his nephrostomy tubes. He still indicates that he is on the antibiotic he was prescribed, which appears to be linezolid. He has now developed vertigo, more severe hypokalemia, and he has a higher leukocytosis. Will obtain blood cultures in addition to sending his urinalysis for culture, started potassium replacement, adding magnesium level, lactate. The patient's troponin is nonspecifically elevated, this may be due to his worsening renal function, however a couple hours into his ED observation he was complaining of heartburn. The nurse noted that he was throwing more ventricular ectopy so a stat EKG was repeated, it is unchanged compared with his prior and shows no evidence of a STEMI or acute injury. He was given Mylanta, he was specifically asking for it; his pain resolved. Initially, his chest x-ray appeared to show infiltrates, so I added a Covid rapid antigen which he has had negative in November, it was negative again. He currently is taking linezolid so I did not add more antibiotics yet, as I do not yet have urinalysis back. I am adding several more urinalysis and cultures, he will need one of his ileal conduit/urostomy, and 1 of each of his nephrostomies. Plan will be for admission Dx sepsis due to UTI since pt already being treated for UTI. He is denying abd/flank pain, so I did not feel he needed repeat imaging at this time. Lab Data Attestation: I reviewed the patient's lab results. Labs: Laboratory Results - last 24 hr 02/23/21 02/23/21 02/23/21 04:20 04:20 06:25 WBC 28.5 H RBC 3.93 L Hgb 10.1 L Hct 33.1 L MCV 84.2 MCH 25.7 L MCHC 30.5 L RDW Std Deviation 49.4 H RDW Coeff of Jeff 16.3 H Plt Count 179 MPV 11.1 Immature Gran % (Auto) 3.400 H Neut % (Auto) 72.4 H Lymph % (Auto) 10.3 L Brewster % (Auto) 12.8 H Eos % (Auto) 0.6 Baso % (Auto) 0.5 Absolute Neuts (auto) 20.6 H Absolute Lymphs (auto) 2.93 Nucleated RBC % 0 Differential Comment SCANNED Diff Path Review May foll Anisocytosis RARE Microcytosis RARE Ovalocytes RARE Sodium 146 H Potassium 2.6 L* Chloride 116 H Carbon Dioxide 17.0 L Anion Gap 13 BUN 42 H Creatinine 5.14 H Estim Creat Clear Calc 11.64 Est GFR (MDRD) Af Amer 14 L Est GFR (MDRD) Non-Af 12 L BUN/Creatinine Ratio 8.2 L Glucose 138 H Calcium 9.0 Magnesium 1.6 Troponin I 0.296 H Radiography Chest X-Ray - ED: 1 View, Read by ED Physician and - (mets vs. infiltrates) Diagnostic Testing: Radiology Impression Brain CT 02/23/21 04:36 IMPRESSION: No acute intracranial abnormality. Chronic changes as above. ASPECT 10. Individualized dose optimization techniques were used for this CT. at 0537 Reported and signed by: Dav Darling MD Electronically Signed: Dav Darling MD at 5:36 EDT Tel , Service support , Chest X-Ray 02/23/21 05:15 IMPRESSION: Stable bilateral lung nodules may represent metastatic disease. Small right pleural effusion. Electronically Signed: Aundrea Harris MD at 6:21 EDT Tel , Service support , EKG Initial EKG: Attestation: I personally reviewed and interpreted this EKG as follows: Interpretation: Sinus Rhythm, No Acute Injury Pattern and Non-Specific ST Changes Comments: freq PVCs Prior EKG tracings: available for review Prior: Unchanged Follow-up EKG: Attestation: I personally reviewed and interpreted this EKG as follows: Interpretation: Sinus Rhythm, No Acute Injury Pattern, RBBB (incomplete) and Inverted T-Waves Prior: Unchanged Discharge Plan Dx/Rx/DC Orders Clinical Impression: Vertigo, MERLE (acute kidney injury), Hypokalemia, Sepsis due to urinary tract infection Disposition Disposition: Acute Care Hospital [facility] Discharge Date/Time: 02/23/21 07:35
[2021-02-23 04:47] LABS: Mucous, Urine 0 SEEN /hpf (<or=2+); Squamous Epithelial Cells - UA 0 SEEN /hpf (0-5)
--- NOTE | 2021-02-23 04:49 | ED.RN ---
Addendum entered by Kavitha Soares RN 02/23/21 04:52: emr still not crossing over with pharm - meds were pulled Addendum entered by Kavitha Soares RN 02/23/21 04:51: exp 06/02) given and lorazepam 0.5mg lot [id number] exp 11/2023 given to patient Addendum entered by Kavitha Soares RN 02/23/21 04:50: // exp Original Note: Patient confirms name and . M number on band matches with [id number]. Ondanestron 4mg in 2 ml (lot [id number] expB
[2021-02-23 04:50] LABS: Absolute Lymphocyte Count 2.93 X10^3/uL (0.83-4.51); Absolute Neutrophil Count 20.6 X10^3/uL (2.0-7.7); Basophil# 0.13 X10^3/uL; Basophil% 0.5 % (0-1); Eosinophil# 0.16 X10^3/uL; Eosinophils% 0.6 % (0-5); Hematocrit 33.1 % (40-54); Hemoglobin 10.1 g/dL (13.0-16.5); Lymphocyte # 2.93 X10^3/ul (0.83-4.51); Lymphocyte % 10.3 % (19-41); Mean Corp Hgb Conc 30.5 g/dL (32-36); Mean Corpuscular Hgb 25.7 pg (27.0-32.0); Mean Corpuscular Volume 84.2 fL (80-94); Mean Platelet Vol. 11.1 fl (6.2-12.0); Monocyte# 3.65 X10^3/uL; Monocyte% 12.8 % (0-10); NRBC Flagged by Analyzer 0 % (0-5); Neutrophil # 20.62 X10^3/uL (2.7-7.7); Neutrophil % 72.4 % (47-70); POSITIVE DIFFERENTIAL YES; Platelet Count 179 K/mm3 (150-450); RBC Distribution Width CV 16.3 % (11.6-14.6); RBC Distribution Width SD 49.4 fl (35.1-43.9); Red Blood Count 3.93 M/mm3 (4.6-6.2); White Blood Count 28.5 K/mm3 (4.4-11.0)
[2021-02-23 04:51] LABS: Differential Indicated SCAN CRITERIA MET
[2021-02-23] MEDS: LORazepam 2 MG/ML Syringe 0.5 MG IV (04:53)
[2021-02-23] MEDS: Ondansetron 4 MG/2 ML Vial IV (04:53)
--- NOTE | 2021-02-23 04:54 | ED.RN ---
ECG in room at this time
[2021-02-23 05:14] LABS: Differential Comment SCANNED
[2021-02-23 05:15] LABS: Anion Gap 13 (5-15); BUN 42 mg/dL (7-18); BUN/Creat Ratio 8.2 RATIO (10-20); Chloride 116 mmol/L (98-107); Creatinine, Serum 5.14 mg/dL (0.70-1.30); EST Glomerular Filtration Rate 12 mL/min (>60); Est Glom Filt Rate - Afr Amer 14 mL/min (>60); Estimated Creatinine Clearance 11.64 ml/min; Glucose 138 mg/dL (74-106); Potassium 2.6 mmol/L (3.5-5.1); Sodium Level 146 mmol/L (136-145)
--- NOTE | 2021-02-23 05:15 | RAD_ITS ---
STUDY: X-RAY CHEST REASON FOR EXAM: Male, 80 years old. weakness, vomiting TECHNIQUE: Single AP portable view of the chest. COMPARISON: 02/14/2021. FINDINGS: Multiple ill-defined bilateral lung nodules most likely represent metastatic disease are not significantly changed since the study from 02/14/2021. There is small right pleural effusion. Normal size heart. Normal mediastinum and alvino. Normal visualized pulmonary arteries. Normal visualized aortic arch and descending thoracic aorta. Normal visualized thoracic spine. There is degenerative osteoarthritis of the bilateral shoulders. There is no demonstrated abnormality of the visualized soft tissue structures of the upper abdomen. RAD/Chest 1 View (Portable) IMPRESSION: Stable bilateral lung nodules may represent metastatic disease. Small right pleural effusion. Electronically Signed: Aundrea Harris MD at 6:21 EDT Tel , Service support ,
[2021-02-23 05:17] LABS: Anisocytosis RARE; Microcytosis RARE; Ovalocyte RARE
[2021-02-23] MEDS: Potassium Chloride 10mEq/100mL 10 MEQ/100 ML IV.SOLN. 100 MEQ IV BOLUS (05:33)
[2021-02-23] MEDS: Potassium Chloride Oral Tablet 20 MEQ 40 MEQ PO (05:38)
--- NOTE | 2021-02-23 06:41 | NURSING ---
family member at bedside report patient has heartburn that is new within 40 minutes and patient states he does not typically get heartburn. Having more PVCs. Dr Nye aware and ECg requested
[2021-02-23] MEDS: Mag Hydrox/Al Hydrox/Simeth 30 ML UDC PO (06:49)
--- NOTE | 2021-02-23 06:54 | EKG12_ITS ---
Test Reason : REPEAT Blood Pressure : / mmHG Vent. Rate : 082 BPM Atrial Rate : 082 BPM P-R Int : 208 ms QRS Dur : 102 ms QT Int : 398 ms P-R-T Axes : -09 -37 056 degrees QTc Int : 464 ms Sinus rhythm with frequent Premature ventricular complexes Left axis deviation Low voltage QRS Inferior infarct , age undetermined Abnormal ECG Confirmed by LILLY GARCIA, AMY ([id number]), editor dictionary REGINALDO ERNST ([id number]) on 02/26/2021 9:33:39 AM Referred By: BB Confirmed By:AMY CARR MD
[2021-02-23 07:07] LABS: Magnesium 1.6 mg/dL (1.6-2.6)
--- NOTE | 2021-02-23 07:10 | NURSING ---
DR KOCH FOR DR MCGEE
--- NOTE | 2021-02-23 07:21 | NURSING ---
105 DR CHRISTENSEN SEPSIS, HYPOKALEMIA, MERLE, VERTIGO
--- NOTE | 2021-02-23 07:52 | ED.RN ---
WATER USE INSPECTOR MADE AWARE THAT THE URINE SAMPLE NEEDED TO BE RECOLLECTED WITH A SAMPLE FROM EACH NEPHROSOTMY
[2021-02-23 08:06] LABS: Lactic Acid 1.1 mmol/L (0.4-1.9)
[2021-02-23 08:30] LABS: Mucous, Urine 0 SEEN /hpf (<or=2+)
[2021-02-23 08:46] LABS: Color, Urine Yellow (Yellow); Glucose, Dipstick Normal (Normal); Ketone-Dipstick 5 mg/dl (Negative); Leukocyte Esterase-Dipstick 500 /ul (Negative); Nitrite-Dipstick Negative (Negative); Occult Blood-Urine 50 /ul (Negative); Protein-Dipstick 30 mg/dl (Negative); Urine Bilirubin Dipstick Negative (Negative); Urine Clarity Cloudy (Clear); Urine Urobilinogen Normal (Normal)
[2021-02-23 08:46] LABS: Color, Urine Yellow (Yellow); Glucose, Dipstick Normal (Normal); Ketone-Dipstick Negative (Negative); Leukocyte Esterase-Dipstick 500 /ul (Negative); Nitrite-Dipstick Negative (Negative); Occult Blood-Urine 250 /ul (Negative); Protein-Dipstick 500 mg/dl (Negative); Specific Gravity, Urine 1.015 (1.002-1.030); Urine Bilirubin Dipstick Negative (Negative); Urine Clarity Cloudy (Clear); Urine Urobilinogen Normal (Normal); Urine pH 6.5 (5.0 - 8.0)
[2021-02-23 08:59] LABS: Bacteria 2+ /hpf (None Seen); Red Blood Cells-Urine 25-50 SEEN /hpf (0-5); Squamous Epithelial Cells - UA 0 SEEN /hpf (0-5); White Blood Cells 50-100 SEEN /hpf (0-5)
--- NOTE | 2021-02-23 09:02 | MRI_ITS ---
STUDY: MRA OF THE HEAD WITHOUT CONTRAST REASON FOR EXAM: Male, 80 years old. left sided weakness TECHNIQUE: 3-D veph-hy-hrkviw (TOF) imaging was performed with MIPs. The study was performed unenhanced. COMPARISON: None. FINDINGS: Normal bilateral petrous carotid arteries. Normal right cavernous carotid artery with a normal supraclinoid bifurcation. Normal left cavernous carotid artery with a normal supraclinoid bifurcation. Normal right A1 segments of the anterior cerebral artery. Normal left A1 segments of the anterior cerebral artery. Normal intact anterior communicating artery (ACOM). Normal bilateral A2 segments of the anterior cerebral arteries. Normal right M1 and M2 segments of the middle cerebral arteries, with a normal M1 bifurcation. Normal left M1 and M2 segments of the middle cerebral arteries, with a normal M1 bifurcation. There is a persistent origin of the right posterior cerebral artery with absence of the P1 segment of the right posterior cerebral artery. Normal left posterior communicating artery (PCOM). Normal bilateral vertebral arteries. Normal basilar artery with a normal basilar bifurcation. The visualized bilateral superior cerebellar (SCA) arteries are normal. Normal bilateral P1, P2 and visualized P3 segments of the posterior cerebral arteries. There is no demonstrated aneurysm of the [place]. There is no major vessel occlusion or hemodynamically significant stenosis. There is no demonstrated abnormality of the visualized brain. MRI/MRA Head ONLY without Contrast IMPRESSION: Normal MRA of the head Electronically Signed: Lorenzo Abbasi MD at 12:29 EDT Tel , Service support ,
--- NOTE | 2021-02-23 09:03 | MRI_ITS ---
STUDY: MRA NECK WITHOUT CONTRAST REASON FOR EXAM: Male, 80 years old. left sided weakness TECHNIQUE: Source images were obtained, MIPs were performed. The study was performed unenhanced. COMPARISON: None. FINDINGS: RIGHT CAROTID ARTERIES: Normal right common carotid artery (CCA). Normal right common carotid bulb. Normal origin of the right internal carotid (ICA) artery without a hemodynamically significant stenosis. Normal visualized cervical portion of the right internal carotid artery. Normal origin of the right external carotid artery (ECA). LEFT CAROTID ARTERIES: Normal left common carotid artery (CCA). Normal left common carotid bulb. Normal origin of the left internal carotid (ICA) artery without a hemodynamically significant stenosis. Normal visualized cervical portion of the left internal carotid artery. Normal origin of the left external carotid artery (ECA). VERTEBRAL ARTERIES: Normal antegrade flow within the bilateral vertebral artery without a hemodynamically significant stenosis. MRI/MRA Neck without Contrast IMPRESSION: Normal bilateral cervical carotid and vertebral arteries. Electronically Signed: Lorenzo Abbasi MD at 12:30 EDT Tel , Service support ,
[2021-02-23 09:05] LABS: Bacteria 2+ /hpf (None Seen); Red Blood Cells-Urine 0-5 SEEN /hpf (0-5); White Blood Cells 25-50 SEEN /hpf (0-5)
[2021-02-23 09:06] LABS: Amorphous Sediment 2+; Uric Acid Crystals Ur 2+ /hpf (<or=1+)
--- NOTE | 2021-02-23 09:06 | ECHOD_ITS ---
Reason For Study: TIA/CVA Procedure This was a 2D Doppler, Color Flow transthoracic echocardiogram. The study was technically difficult. The study was technically limited. Technically limited study-pt deep sleeping/ supine position during exam- was combative and confused when woken- did not want to continue with test. Exam performed portable in patient room. Left Ventricle Normal left ventricle. The estimated ejection fraction is EF 55-60% %. Right Ventricle Normal right ventricle. Normal systolic function. Atria Normal left atrium. Normal right atrium. Mitral Valve The mitral valve is structurally normal. No prolapse or stenosis seen. Tricuspid Valve Normal tricuspid valve. Aortic Valve Normal aortic valve. Pulmonic Valve The pulmonic valve is not well visualized. Pericardium/Pleural No pericardial effusion. MMode/2D Measurements & Calculations LVIDd: 3.0 cm IVSd: 1.2 cm Ao root diam: 3.8 cm LVIDs: 2.4 cm LVPWd: 1.3 cm RVDd: 3.2 cm FS: 18.4 % LAV(MOD-sp4): 34.1 ml LA A4 area: 13.4 cm2 LA dimension(2D): 3.7 cm RA A4 area: 13.8 cm2 Time Measurements MV dec time: 0.34 sec Doppler Measurements & Calculations MV E max dmitriy: 64.0 cm/sec Lat Peak E' Dmitriy: 9.1 cm/sec Med Peak E' Dmitriy: 11.3 cm/sec MV A max dmitriy: 128.3 cm/sec E/E' lat: 7.0 E/E' med: 5.7 MV E/A: 0.50 Ao V2 max: 81.8 cm/sec LV V1 max: 80.8 cm/sec TR max dmitriy: 303.3 cm/sec Ao max P.7 mmHg LV V1 max P.6 mmHg TR max P.9 mmHg ECHO/Echo Complete Interpretation Summary The estimated ejection fraction is EF 55-60% %. Limited 2 D echo study Ordering Physician: Radames Duke Referring Physician: PRINCE CHAVIRA Performed By: Joie España, ELMERCS, RVT
--- NOTE | 2021-02-23 09:30 | CASEMGMT ---
RN CM chart review: Patient was admitted 02/14- for UTI, constipation and was discharged home with resumption of HHC with [facility] and PO ATB Linezolid. See RN CM assessment on 02/15/21. Patient had follow-up appts schedule as well as hospice/palliative consult. Patient returned 02/23/21 prior to follow appt to ED for weakness and was admitted for vertigo and severe hypokalemia. Additionally, patient is being worked up for suspected stroke. Will montior progress with therapy Discharge dispostion: Home with HHC vs SNF pending progress with therapy.
--- NOTE | 2021-02-23 09:44 | HP.PCM.HOS_ITS ---
HPI - General General Date of Admission: 02/23/21 HPI Narrative SUSANNAH CALIXTO, is a 80 M who presents with dizziness. Dizziness awoke him from sleep at 0300. Went to bed last night around 2[address]. Head [address] showed no acute process. Patient received lorazepam for dizziness. States that he has been drinking at home, but not eating much. 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 Primary hypertension Pure hypercholesterolemia Urethral stricture Home Medications simvastatin 10 mg PO QHS 05/01/16 [History Last Taken 02/13/21] aspirin 81 mg PO DAILY@0800 05/01/19 [History Last Taken 02/13/21] multivitamin 1 ea PO DAILY 12/11/19 [History Last Taken 02/13/21] vit C,O-Zh-uymnd-lutein-zeaxan 1 ea PO BID 12/11/19 [History Last Taken 02/13/21] lorazepam 0.5 mg PO DAILY PRN PRN 11/30/20 [History Last Taken Unknown] ondansetron 8 mg PO Q6H PRN 11/30/20 [History Last Taken Unknown] metoprolol tartrate 25 mg PO BID 12/10/20 [History Last Taken 02/13/21] acetaminophen 1,000 mg PO Q6H PRN PRN tablet 01/02/21 [Rx Last Taken 02/13/21] Eucerin Intensive Repair 1 ea TOPICAL QHS 02/14/21 [History Last Taken Unknown] linezolid [Zyvox] 600 mg PO BID 02/23/21 [History Last Taken Unknown] simethicone [Gas Relief (simethicone)] 80 mg PO TIDPC PRN 02/23/21 [History Last Taken Unknown] Allergy/AdvReac Type Severity Reaction Status Date / Time atenolol AdvReac hypotension Verified 02/14/21 19:01 tamsulosin [From Flomax] AdvReac PT UNSURE Verified 02/14/21 19:01 OF REACTION Family History (Updated 02/14/21 @ 17:57 by Alison Otero [employer], [employer]) Mother No problems noted. Father No problems noted. Surgical History History of appendectomy History of cystoscopy History of urostomy Social History Smoking Status: Former smoker alcohol intake: current alcohol intake frequency: 0-2 drinks per day Alcohol type: wine ROS Constitutional Constitutional: Denies chills or fever(s) Eyes Eyes: Denies blurry vision ENT HEENT: Denies headache(s) or hearing loss Cardiovascular Cardiovascular: Denies chest pain Respiratory/Chest Respiratory/Chest: Denies cough Gastrointestinal Gastrointestinal: Reports abdominal pain and diarrhea; Denies nausea or vomiting Genitourinary Genitourinary: Reports other Details: decreased urine outpt Hematologic/Lymphatic Hematologic/Lymphatic: Denies anemia Vital Signs Vital Signs Vital Signs: 02/23/21 04:31 02/23/21 04:37 02/23/21 04:43 Temperature 36.9 C 36.6 C Temperature Source Temporal Oral Pulse Rate 64 124 H Respiratory Rate 16 23 H Respiratory Effort Normal Respiratory Pattern Normal Blood Pressure 112/73 112/73 Blood Pressure Mean 86 86 Pulse Ox 95 95 Oxygen Delivery Method Nasal Cannula Nasal Cannula Oxygen Flow Rate (L/min) 2 2 02/23/21 05:39 02/23/21 06:53 02/23/21 06:54 Temperature 36.6 C 37.1 C 36.9 C Temperature Source Temporal Oral Temporal Pulse Rate 77 72 74 Respiratory Rate 16 16 14 Respiratory Effort Respiratory Pattern Blood Pressure 118/63 122/77 H 122/77 H Blood Pressure Mean 81 92 92 Pulse Ox 94 98 98 Oxygen Delivery Method Room Air Room Air Room Air Oxygen Flow Rate (L/min) 02/23/21 07:02 02/23/21 07:31 02/23/21 08:12 Temperature 36.9 C 36.8 C 35.6 C L Temperature Source Temporal Temporal Axillary Pulse Rate 74 85 66 Respiratory Rate 16 20 H 18 Respiratory Effort Respiratory Pattern Blood Pressure 129/80 H 115/82 H 132/78 H Blood Pressure Mean 96 93 96 Pulse Ox 94 97 98 Oxygen Delivery Method Room Air Room Air Room Air Oxygen Flow Rate (L/min) Physical Exam Const alert General Appearance: cooperative HEENT HEENT Narrative: eyes deviated to right. PERRL. MMM left facial droop Resp normal respiratory effort and clear to auscultation bilaterally Cardio regular rate, regular rhythm, S1 normal heart sound and S2 normal heart sound GI normal to inspection, nondistended, normoactive bowel sounds and hepatosplenomegaly GI Narrative: distended. high-pitched bowel sounds. Extremity normal to inspection Extremity Narrative: 3+ edema bilaterally. Skin no rashes or lesions noted Neuro oriented x3 Neuro Narrative: MS 5/5 in BUE. 4/5 in RLE, 3/5 LLE. Ataxia with finger to nose on left. Sensorium / Orientation: alert Psych affect normal Lab / Micro Data Result Diagrams: 02/23/21 04:20 02/23/21 04:20 Labs: Laboratory Results - last 24 hr 02/23/21 02/23/21 02/23/21 04:20 04:20 04:20 WBC 28.5 H RBC 3.93 L Hgb 10.1 L Hct 33.1 L MCV 84.2 MCH 25.7 L MCHC 30.5 L RDW Std Deviation 49.4 H RDW Coeff of Jeff 16.3 H Plt Count 179 MPV 11.1 Immature Gran % (Auto) 3.400 H Neut % (Auto) 72.4 H Lymph % (Auto) 10.3 L [place] % (Auto) 12.8 H Eos % (Auto) 0.6 Baso % (Auto) 0.5 Absolute Neuts (auto) 20.6 H Absolute Lymphs (auto) 2.93 Nucleated RBC % 0 Differential Comment SCANNED Diff Path Review May foll Anisocytosis RARE Microcytosis RARE Ovalocytes RARE Sodium 146 H Potassium 2.6 L* Chloride 116 H Carbon Dioxide 17.0 L Anion Gap 13 BUN 42 H Creatinine 5.14 H Estim Creat Clear Calc 11.64 Est GFR (MDRD) Af Amer 14 L Est GFR (MDRD) Non-Af 12 L BUN/Creatinine Ratio 8.2 L Glucose 138 H Lactic Acid Calcium 9.0 Magnesium Troponin I 0.296 H Urine Color Yellow Urine Clarity Cloudy Urine pH 5.0 Ur Specific [place] 1.020 U Specif Grav (Refrac) Urine Protein 30 H Urine Glucose (UA) Normal Urine Ketones 5 H Urine Occult Blood 50 H Urine Nitrite Negative Urine Bilirubin Negative Urine Urobilinogen Normal Ur Leukocyte Esterase 500 H Urine RBC 0-5 SEEN Urine WBC 25-50 SEEN Ur Squamous Epith Cells 0 SEEN Ur Transition Epith Cell Ur Renal Epithelial Cell Calcium Oxalate Crystal Uric Acid Crystals 2+ Triple Phos Crystals Other Crystals Amorphous Sediment 2+ Urine Bacteria 2+ Hyaline Casts Fine Granular Casts Coarse Granular Casts Waxy Casts RBC Casts WBC Casts Urine Mucus 0 SEEN Urine Trichomonas Urine Yeast 02/23/21 02/23/21 02/23/21 06:25 07:20 07:30 WBC RBC Hgb Hct MCV MCH MCHC RDW Std Deviation RDW Coeff of Jeff Plt Count MPV Immature Gran % (Auto) Neut % (Auto) Lymph % (Auto) [place] % (Auto) Eos % (Auto) Baso % (Auto) Absolute Neuts (auto) Absolute Lymphs (auto) Nucleated RBC % Differential Comment Diff Path Review Anisocytosis Microcytosis Ovalocytes Sodium Potassium Chloride Carbon Dioxide Anion Gap BUN Creatinine Estim Creat Clear Calc Est GFR (MDRD) Af Amer Est GFR (MDRD) Non-Af BUN/Creatinine Ratio Glucose Lactic Acid 1.1 Calcium Magnesium 1.6 Troponin I Urine Color Yellow Urine Clarity Cloudy Urine pH 6.5 Ur Specific [place] 1.015 U Specif Grav (Refrac) Urine Protein 500 H Urine Glucose (UA) Normal Urine Ketones Negative Urine Occult Blood 250 H Urine Nitrite Negative Urine Bilirubin Negative Urine Urobilinogen Normal Ur Leukocyte Esterase 500 H Urine RBC 25-50 SEEN Urine WBC 50-100 SEEN Ur Squamous Epith Cells 0 SEEN Ur Transition Epith Cell Ur Renal Epithelial Cell Calcium Oxalate Crystal Uric Acid Crystals Triple Phos Crystals Other Crystals Amorphous Sediment Urine Bacteria 2+ Hyaline Casts Fine Granular Casts Coarse Granular Casts Waxy Casts RBC Casts WBC Casts Urine Mucus 0 SEEN Urine Trichomonas Urine Yeast 02/23/21 07:50 WBC RBC Hgb Hct MCV MCH MCHC RDW Std Deviation RDW Coeff of Jeff Plt Count MPV Immature Gran % (Auto) Neut % (Auto) Lymph % (Auto) [place] % (Auto) Eos % (Auto) Baso % (Auto) Absolute Neuts (auto) Absolute Lymphs (auto) Nucleated RBC % Differential Comment Diff Path Review Anisocytosis Microcytosis Ovalocytes Sodium Potassium Chloride Carbon Dioxide Anion Gap BUN Creatinine Estim Creat Clear Calc Est GFR (MDRD) Af Amer Est GFR (MDRD) Non-Af BUN/Creatinine Ratio Glucose Lactic Acid Calcium Magnesium Troponin I Urine Color Cancelled Urine Clarity Cancelled Urine pH Cancelled Ur Specific [place] Cancelled U Specif Grav (Refrac) Cancelled Urine Protein Cancelled Urine Glucose (UA) Cancelled Urine Ketones Cancelled Urine Occult Blood Cancelled Urine Nitrite Cancelled Urine Bilirubin Cancelled Urine Urobilinogen Cancelled Ur Leukocyte Esterase Cancelled Urine RBC Cancelled Urine WBC Cancelled Ur Squamous Epith Cells Cancelled Ur Transition Epith Cell Cancelled Ur Renal Epithelial Cell Cancelled Calcium Oxalate Crystal Cancelled Uric Acid Crystals Cancelled Triple Phos Crystals Cancelled Other Crystals Cancelled Amorphous Sediment Cancelled Urine Bacteria Cancelled Hyaline Casts Cancelled Fine Granular Casts Cancelled Coarse Granular Casts Cancelled Waxy Casts Cancelled RBC Casts Cancelled WBC Casts Cancelled Urine Mucus Cancelled Urine Trichomonas Cancelled Urine Yeast Cancelled Micro: Microbiology 02/23/21 06:25 SARS-CoV-2 Antigen (Rapid) - Final Interface Orders Radiology Impression Brain CT 02/23/21 04:36 IMPRESSION: No acute intracranial abnormality. Chronic changes as above. ASPECT 10. Individualized dose optimization techniques were used for this CT. at 0537 Reported and signed by: Dav Darling MD Electronically Signed: Dav Darling MD at 5:36 EDT Tel , Service support , Chest X-Ray 02/23/21 05:15 IMPRESSION: Stable bilateral lung nodules may represent metastatic disease. Small right pleural effusion. Electronically Signed: Aundrea Harris MD at 6:21 EDT Tel , Service support , Assessment & Plan Assessment/Plan (1) CVA (cerebral vascular accident): QUALIFIERS: CVA mechanism: unspecified Qualified Code(s): I63.9 - Cerebral infarction, unspecified (2) MERLE (acute kidney injury): (3) Abdominal pain: QUALIFIERS: Abdominal location: generalized Qualified Code(s): R10.84 - Generalized abdominal pain PLAN: 1. Suspected Acute CVA * v mass * eyes deviated right with left sided weakness * check MRI brain, MRA head and neck, echo * ASA * consult neurology after testing complete * not candidate for TPA given unknown time of onset * PT OT ST 2. MERLE * worse again * gentle hydration * consult nephrology * consider renal US 3. Recent UTI * [employer] and S haemolyticus * linezolid 4. Abdominal pain * check abdominal xray 5. bladder cancer * follow up with oncology for further staging * poor px 6. VTE prophylaxis:heparin 7. ACP: DW pt, DNRCCA, DNI Visit Charges Inpatient E&M: 80449 Init Hosp L3
--- NOTE | 2021-02-23 09:52 | MRI_ITS ---
We are attempting to reach an attending provider to discuss findings. An addendum with communication details will be sent when the communication is complete. STUDY: MRI BRAIN WITHOUT CONTRAST REASON FOR EXAM: Male, 80 years old. Vertigo TECHNIQUE: Standardized multiplanar fat and water weighted pulse sequences were obtained. COMPARISON: CT earlier today FINDINGS: There is mild cerebral atrophy with widening of the extra-axial spaces and ventricular dilatation. There are a limited number of small white matter hyperintensities, distributed throughout the deep white matter tracts of the cerebral hemispheres, consistent with mild chronic white matter ischemic changes. Large wedge-shaped hyperintensity of the inferior left hemisphere of the cerebellum demonstrates restricted diffusion consistent with an acute infarct of the left posterior inferior cerebellar artery. Normal T2* images of the brain without demonstrated susceptibility artifact. There is no demonstrated hemosiderin stain. Thin section coronal T2-weighted images through the temporal lobes demonstrate bilateral hippocampal atrophy which can be seen in cognitive decline. Normal bilateral basal ganglia. Normal thalami. There is no extra-axial fluid accumulation. Normal flow voids within the major intracranial circulation suggesting patency by spin echo criteria. Normal sella turcica, pituitary gland, infundibular stalk, optic chiasm and hypothalamus. Normal tectal plate and pineal gland. Normal midbrain, sally and medulla. Normal cerebellum. Normal basal cisterns. Normal bilateral temporal bones. Normal bilateral internal auditory canals. No demonstrated orbital abnormality, within the constraints of a routine brain study. Normal visualized paranasal sinuses. Normal calvarium and skull base. Normal visualized soft tissue structures. Normal visualized upper cervical spine. MRI/Brain without Contrast IMPRESSION: Involutional changes of the brain, as described above. 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 Electronically Signed: Lorenzo Abbasi MD at 12:26 EDT Tel , Service support ,
--- NOTE | 2021-02-23 10:15 | RAD_ITS ---
STUDY: X-RAY - ACUTE ABDOMINAL SERIES REASON FOR EXAM: Male, 80 years old. abdominal pain TECHNIQUE: Single view of the chest. Supine, and erect view(s) of the abdomen were obtained. COMPARISON: 02/23/2021 at 05 11 FINDINGS: Poor inspiration with some bibasilar atelectasis. Normal size heart. Normal mediastinum and alvino. Normal visualized pulmonary arteries. Normal visualized aortic arch and descending thoracic aorta. Multiple loops of dilated bowel which may represent a mixture of colon and small bowel consistent with adynamic ileus. No pneumoperitoneum. The soft tissue structures of the abdomen and pelvis are unremarkable. Normal visualized osseous structures. Bilateral percutaneous nephrostomy tubes. RAD/Acute Abdomen Inc Chest IMPRESSION: 1. Poor inspiration with bibasilar atelectasis. 2. Bilateral percutaneous nephrostomy tubes. 3. Suspect adynamic ileus. 4. No pneumoperitoneum to Electronically Signed: Lorenzo Abbasi MD at 10:46 EDT Tel , Service support ,
[2021-02-23] MEDS: Heparin Injection (Vial) 5,000 UNIT/ML VIAL 5000 UNIT SC ×2 (12:26→21:44)
[2021-02-23] MEDS: Linezolid 600 MG Tablet PO (12:26)
[2021-02-23] MEDS: Multivitamins,Therapeutic Tablet 1 TABLET PO (12:26)
[2021-02-23] MEDS: Metoprolol Tartrate 25 MG Tablet PO (12:26)
[2021-02-23] MEDS: Aspirin 81 MG TAB.CHEW PO (12:26)
--- NOTE | 2021-02-23 13:49 | TELEMED_ITS ---
[facility] has confirmed receipt of a request for visit. This document confirms receipt of the order initiating the consult. To find the results of the consultation, please view the patient's reports for the scanned Tele[facility] Consult.
[2021-02-23] MEDS: 0.9% Normal Saline 1,000 ML 100 ML IV (16:19)
--- NOTE | 2021-02-23 18:02 | PCM.CONS.R ---
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 might have to stop IVF and give lasix if worsening respiratory status continue PCNT , monitor UOP No need for HC03 replacement. might have to add HC03 tab/IVF if HC03 < 15 monitor peripheral edema. 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 BPH,UTI, HTN and HPLD who presents with acute dizziness. 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 Renal team is consulted for MERLE on CKD. Patient has advanced CKD from obstruction. Cr asd 4.29 mg/dl 3 days ago. Pt presented now with Cr 5.1 mg/dl Patient is oliguric. Still has B/L PCNT but oliguric. he had only 130 cc this am Patient is obtunded but arousable . 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 Primary hypertension Pure hypercholesterolemia Urethral stricture Home Medications simvastatin 10 mg PO QHS 05/01/16 [History Last Taken 02/13/21] aspirin 81 mg PO DAILY@0800 05/01/19 [History Last Taken 02/13/21] multivitamin 1 ea PO DAILY 12/11/19 [History Last Taken 02/13/21] vit C,S-Kd-gppdj-lutein-zeaxan 1 ea PO BID 12/11/19 [History Last Taken 02/13/21] lorazepam 0.5 mg PO DAILY PRN PRN 11/30/20 [History Last Taken Unknown] ondansetron 8 mg PO Q6H PRN 11/30/20 [History Last Taken Unknown] metoprolol tartrate 25 mg PO BID 12/10/20 [History Last Taken 02/13/21] acetaminophen 1,000 mg PO Q6H PRN PRN tablet 01/02/21 [Rx Last Taken 02/13/21] Eucerin Intensive Repair 1 ea TOPICAL QHS 02/14/21 [History Last Taken Unknown] linezolid [Zyvox] 600 mg PO BID 02/23/21 [History Last Taken Unknown] simethicone [Gas Relief (simethicone)] 80 mg PO TIDPC PRN 02/23/21 [History Last Taken Unknown] Allergy/AdvReac Type Severity Reaction Status Date / Time atenolol AdvReac hypotension Verified 02/14/21 19:01 tamsulosin [From Flomax] AdvReac PT UNSURE Verified 02/14/21 19:01 OF REACTION Family History (Updated 02/14/21 @ 17:57 by Alison Otero NP, PRESS PIPE INSPECTOR-C) Mother No problems noted. Father No problems noted. Surgical History History of appendectomy History of cystoscopy History of urostomy Social History Smoking Status: Former smoker alcohol intake: current alcohol intake frequency: 0-2 drinks per day Alcohol type: wine Physical Exam Const well nourished General Appearance: frail Orientation / Consciousness: awake HEENT normocephalic Mouth: oral and palatal mucosa normal Eyes conjunctivae normal Neck supple and no JVD Resp normal respiratory effort Auscultation: clear to auscultation bilaterally Cardio regular rate and S2 normal heart sound GI Auscultation: normoactive bowel sounds Palpation: soft Extremity Extremity Narrative: edema +3 of LE Neuro oriented x3 Psych Attitude: calm Lab / Micro Data Result Diagrams: 02/23/21 04:20 02/23/21 04:20 Labs: Laboratory Results - last 24 hr 02/23/21 02/23/21 02/23/21 04:20 04:20 04:20 WBC 28.5 H RBC 3.93 L Hgb 10.1 L Hct 33.1 L MCV 84.2 MCH 25.7 L MCHC 30.5 L RDW Std Deviation 49.4 H RDW Coeff of Jeff 16.3 H Plt Count 179 MPV 11.1 Immature Gran % (Auto) 3.400 H Neut % (Auto) 72.4 H Lymph % (Auto) 10.3 L Clare % (Auto) 12.8 H Eos % (Auto) 0.6 Baso % (Auto) 0.5 Absolute Neuts (auto) 20.6 H Absolute Lymphs (auto) 2.93 Nucleated RBC % 0 Differential Comment SCANNED Diff Path Review May foll Anisocytosis RARE Microcytosis RARE Ovalocytes RARE Sodium 146 H Potassium 2.6 L* Chloride 116 H Carbon Dioxide 17.0 L Anion Gap 13 BUN 42 H Creatinine 5.14 H Estim Creat Clear Calc 11.64 Est GFR (MDRD) Af Amer 14 L Est GFR (MDRD) Non-Af 12 L BUN/Creatinine Ratio 8.2 L Glucose 138 H Lactic Acid Calcium 9.0 Magnesium Troponin I 0.296 H Urine Color Yellow Urine Clarity Cloudy Urine pH 5.0 Ur Specific [place] 1.020 U Specif Grav (Refrac) Urine Protein 30 H Urine Glucose (UA) Normal Urine Ketones 5 H Urine Occult Blood 50 H Urine Nitrite Negative Urine Bilirubin Negative Urine Urobilinogen Normal Ur Leukocyte Esterase 500 H Urine RBC 0-5 SEEN Urine WBC 25-50 SEEN Ur Squamous Epith Cells 0 SEEN Ur Transition Epith Cell Ur Renal Epithelial Cell Calcium Oxalate Crystal Uric Acid Crystals 2+ Triple Phos Crystals Other Crystals Amorphous Sediment 2+ Urine Bacteria 2+ Hyaline Casts Fine Granular Casts Coarse Granular Casts Waxy Casts RBC Casts WBC Casts Urine Mucus 0 SEEN Urine Trichomonas Urine Yeast 02/23/21 02/23/21 02/23/21 06:25 07:20 07:30 WBC RBC Hgb Hct MCV MCH MCHC RDW Std Deviation RDW Coeff of Jeff Plt Count MPV Immature Gran % (Auto) Neut % (Auto) Lymph % (Auto) Clare % (Auto) Eos % (Auto) Baso % (Auto) Absolute Neuts (auto) Absolute Lymphs (auto) Nucleated RBC % Differential Comment Diff Path Review Anisocytosis Microcytosis Ovalocytes Sodium Potassium Chloride Carbon Dioxide Anion Gap BUN Creatinine Estim Creat Clear Calc Est GFR (MDRD) Af Amer Est GFR (MDRD) Non-Af BUN/Creatinine Ratio Glucose Lactic Acid 1.1 Calcium Magnesium 1.6 Troponin I Urine Color Yellow Urine Clarity Cloudy Urine pH 6.5 Ur Specific [place] 1.015 U Specif Grav (Refrac) Urine Protein 500 H Urine Glucose (UA) Normal Urine Ketones Negative Urine Occult Blood 250 H Urine Nitrite Negative Urine Bilirubin Negative Urine Urobilinogen Normal Ur Leukocyte Esterase 500 H Urine RBC 25-50 SEEN Urine WBC 50-100 SEEN Ur Squamous Epith Cells 0 SEEN Ur Transition Epith Cell Ur Renal Epithelial Cell Calcium Oxalate Crystal Uric Acid Crystals Triple Phos Crystals Other Crystals Amorphous Sediment Urine Bacteria 2+ Hyaline Casts Fine Granular Casts Coarse Granular Casts Waxy Casts RBC Casts WBC Casts Urine Mucus 0 SEEN Urine Trichomonas Urine Yeast 02/23/21 02/23/21 02/23/21 07:50 09:45 13:07 WBC RBC Hgb Hct MCV MCH MCHC RDW Std Deviation RDW Coeff of Jeff Plt Count MPV Immature Gran % (Auto) Neut % (Auto) Lymph % (Auto) Clare % (Auto) Eos % (Auto) Baso % (Auto) Absolute Neuts (auto) Absolute Lymphs (auto) Nucleated RBC % Differential Comment Diff Path Review Anisocytosis Microcytosis Ovalocytes Sodium Potassium Chloride Carbon Dioxide Anion Gap BUN Creatinine Estim Creat Clear Calc Est GFR (MDRD) Af Amer Est GFR (MDRD) Non-Af BUN/Creatinine Ratio Glucose Lactic Acid Calcium Magnesium Troponin I 0.275 H 0.261 H Urine Color Cancelled Urine Clarity Cancelled Urine pH Cancelled Ur Specific [place] Cancelled U Specif Grav (Refrac) Cancelled Urine Protein Cancelled Urine Glucose (UA) Cancelled Urine Ketones Cancelled Urine Occult Blood Cancelled Urine Nitrite Cancelled Urine Bilirubin Cancelled Urine Urobilinogen Cancelled Ur Leukocyte Esterase Cancelled Urine RBC Cancelled Urine WBC Cancelled Ur Squamous Epith Cells Cancelled Ur Transition Epith Cell Cancelled Ur Renal Epithelial Cell Cancelled Calcium Oxalate Crystal Cancelled Uric Acid Crystals Cancelled Triple Phos Crystals Cancelled Other Crystals Cancelled Amorphous Sediment Cancelled Urine Bacteria Cancelled Hyaline Casts Cancelled Fine Granular Casts Cancelled Coarse Granular Casts Cancelled Waxy Casts Cancelled RBC Casts Cancelled WBC Casts Cancelled Urine Mucus Cancelled Urine Trichomonas Cancelled Urine Yeast Cancelled Micro: Microbiology 02/23/21 06:25 SARS-CoV-2 Antigen (Rapid) - Final Interface Orders Radiology Impression Brain CT 02/23/21 04:36 IMPRESSION: No acute intracranial abnormality. Chronic changes as above. ASPECT 10. Individualized dose optimization techniques were used for this CT. at 0537 Reported and signed by: Dav Darling MD Electronically Signed: Dav Darling MD at 5:36 EDT Tel , Service support , Chest X-Ray 02/23/21 05:15 IMPRESSION: Stable bilateral lung nodules may represent metastatic disease. Small right pleural effusion. Electronically Signed: Aundrea Harris MD at 6:21 EDT Tel , Service support , Head MRA 02/23/21 09:02 IMPRESSION: Normal MRA of the head Electronically Signed: Lorenzo Abbasi MD at 12:29 EDT Tel , Service support , Neck MRA 02/23/21 09:03 IMPRESSION: Normal bilateral cervical carotid and vertebral arteries. Electronically Signed: Lorenzo Abbasi MD at 12:30 EDT Tel , Service support , Echocardiogram 02/23/21 09:06 Interpretation Summary The estimated ejection fraction is EF 55-60% %. Limited 2 D echo study Ordering Physician: Radames Duke Referring Physician: PRINCE CHAVIRA Performed By: Joie España, RDCS, RVT Brain MRI 02/23/21 09:52 IMPRESSION: Involutional changes of the brain, as described above. 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 Electronically Signed: Lorenzo Abbasi MD at 12:26 EDT Tel , Service support , ADDENDUM: 02/23/21 1245 IMPRESSION: Involutional changes of the brain, as described above. 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 N.B. : The above information has been verbally conveyed by Lorenzo Abbasi MD to Len Riggins RN, on 02/23/2021 12:37:45 (ET). Electronically Signed: Lorenzo Abbasi MD at 12:26 EDT Tel , Service support , Acute Abdomen Series 02/23/21 10:15 IMPRESSION: 1. Poor inspiration with bibasilar atelectasis. 2. Bilateral percutaneous nephrostomy tubes. 3. Suspect adynamic ileus. 4. No pneumoperitoneum to Electronically Signed: Lorenzo Abbasi MD at 10:46 EDT Tel , Service support ,
[2021-02-24] VITALS (12 sets, daily range): BP systolic 112–134; BP diastolic 60–73; PULSE 49–93; RESP 18; TEMP 36.2–36.9; O2SAT 90–96
[2021-02-24] MEDS: 0.9% Normal Saline 1,000 ML 100 ML IV (02:26)
[2021-02-24 04:44] LABS: Hematocrit 32.8 % (40-54); Mean Corp Hgb Conc 30.5 g/dL (32-36); Mean Corpuscular Hgb 25.8 pg (27.0-32.0); Mean Corpuscular Volume 84.5 fL (80-94); Mean Platelet Vol. 10.8 fl (6.2-12.0); POSITIVE COUNT YES; POSITIVE DIFFERENTIAL YES; POSITIVE MORPHOLOGY YES; Platelet Count 175 K/mm3 (150-450); RBC Distribution Width CV 16.8 % (11.6-14.6); RBC Distribution Width SD 50.4 fl (35.1-43.9); Red Blood Count 3.88 M/mm3 (4.6-6.2)
[2021-02-24 04:48] LABS: Differential Indicated MANUAL DIFF; White Blood Count 31.6 K/mm3 (4.4-11.0)
[2021-02-24 05:12] LABS: Anion Gap 13 (5-15); BUN 42 mg/dL (7-18); BUN/Creat Ratio 8.1 RATIO (10-20); Calcium,Total 8.7 mg/dL (8.5-10.1); Chloride 117 mmol/L (98-107); Cholesterol 67 mg/dL (200); Creatinine, Serum 5.19 mg/dL (0.70-1.30); EST Glomerular Filtration Rate 11 mL/min (>60); Est Glom Filt Rate - Afr Amer 14 mL/min (>60); Estimated Creatinine Clearance 11.89 ml/min; Glucose 94 mg/dL (74-106); High Density Lipoprotein 37 mg/dL; Potassium 2.5 mmol/L (3.5-5.1); Sodium Level 147 mmol/L (136-145); Triglycerides 83 mg/dL; Very Low Density Lipoprotein 17 mg/dL (5-40)
[2021-02-24 05:28] LABS: Lymphocyte 5 % (19-41); Metamyelocyte 1 % (0-1); Monocyte 4 % (0-10); Neutrophil-Band 4 % (0-5); Neutrophil-Segmented 86 % (47-70); Total Cells Counted 100 (MANUAL DIFF)
[2021-02-24 05:29] LABS: Absolute Neutrophil Count 28.4 X10^3/uL (2.0-7.7); Platelet Estimate ADEQUATE (ADEQ); Red Cell Morphology NORM C+C NORMAL (NORM C&C)
[2021-02-24] MEDS: Potassium Chloride 40 MEQ in 0.9% Normal Saline 1,000 ML 100 MEQ IV ×2 (05:41→16:37)
[2021-02-24] MEDS: Linezolid 600 MG 600 MG/300 ML BAG 200 MG IV ×2 (05:42→22:10)
[2021-02-24] MEDS: Potassium Chloride 10mEq/100mL 10 MEQ/100 ML IV.SOLN. 100 MEQ IV BOLUS ×4 (05:42→09:45)
[2021-02-24] MEDS: Heparin Injection (Vial) 5,000 UNIT/ML VIAL 5000 UNIT SC (09:00)
[2021-02-24 12:24] LABS: Anion Gap 13 (5-15); BUN 41 mg/dL (7-18); BUN/Creat Ratio 7.8 RATIO (10-20); Calcium,Total 8.4 mg/dL (8.5-10.1); Chloride 119 mmol/L (98-107); Creatinine, Serum 5.27 mg/dL (0.70-1.30); EST Glomerular Filtration Rate 11 mL/min (>60); Est Glom Filt Rate - Afr Amer 14 mL/min (>60); Estimated Creatinine Clearance 11.71 ml/min; Glucose 91 mg/dL (74-106); Sodium Level 149 mmol/L (136-145)
--- NOTE | 2021-02-24 13:21 | PN.HOSP_ITS ---
Subjective Subjective Denies abdominal pain. Objective Data Objective Data Vital Signs: Vital Signs Temp Pulse Resp BP Pulse Ox 36.6 C 82 18 118/73 94 02/24/21 11:28 02/24/21 11:28 02/24/21 11:28 02/24/21 11:28 02/24/21 11:28 Oxygen Flow Rate (L/min) 2 Oxygen Delivery Method Room Air Weight: 114.5 kg Body Mass Index (BMI) 35.2 Intake & Output: Intake and Output for Last 24 Hours 02/22/21 02/23/21 02/24/21 23:59 23:59 23:59 Intake Total 1444 / 1444 2026.67 / 2026.67 Output Total 270 / 270 280 / 280 Balance 1174 / 1174 1746.67 / 1746.67 Lab / Micro Data Result Diagrams: 02/24/21 04:34 02/24/21 12:02 Labs: Laboratory Results - last 24 hr 02/23/21 02/24/21 02/24/21 13:07 04:34 04:34 WBC 31.6 H* RBC 3.88 L Hgb 10.0 L Hct 32.8 L MCV 84.5 MCH 25.8 L MCHC 30.5 L RDW Std Deviation 50.4 H RDW Coeff of Jeff 16.8 H Plt Count 175 MPV 10.8 Neut % (Auto) Not Reportable Absolute Neuts (auto) 28.4 H Absolute Lymphs (auto) 1.60 Total Counted 100 Neutrophils % (Manual) 86 H Band Neutrophils % 4 Lymphocytes % (Manual) 5 L Monocytes % (Manual) 4 Metamyelocytes % 1 Diff Path Review May foll Platelet Estimate ADEQUATE RBC Morphology NORM C+C Sodium 147 H Potassium 2.5 L* Chloride 117 H Carbon Dioxide 17.0 L Anion Gap 13 BUN 42 H Creatinine 5.19 H Estim Creat Clear Calc 11.89 Est GFR (MDRD) Af Amer 14 L Est GFR (MDRD) Non-Af 11 L BUN/Creatinine Ratio 8.1 L Glucose 94 Calcium 8.7 Magnesium Troponin I 0.261 H Triglycerides 83 Cholesterol 67 LDL Cholesterol 13 VLDL Cholesterol 17 HDL Cholesterol 37 L 02/24/21 02/24/21 04:34 12:02 WBC RBC Hgb Hct MCV MCH MCHC RDW Std Deviation RDW Coeff of Jeff Plt Count MPV Neut % (Auto) Absolute Neuts (auto) Absolute Lymphs (auto) Total Counted Neutrophils % (Manual) Band Neutrophils % Lymphocytes % (Manual) Monocytes % (Manual) Metamyelocytes % Diff Path Review Platelet Estimate RBC Morphology Sodium 149 H Potassium 3.0 L Chloride 119 H Carbon Dioxide 17.0 L Anion Gap 13 BUN 41 H Creatinine 5.27 H Estim Creat Clear Calc 11.71 Est GFR (MDRD) Af Amer 14 L Est GFR (MDRD) Non-Af 11 L BUN/Creatinine Ratio 7.8 L Glucose 91 Calcium 8.4 L Magnesium 2.0 Troponin I Triglycerides Cholesterol LDL Cholesterol VLDL Cholesterol HDL Cholesterol Micro: Microbiology 02/23/21 08:00 Urine, Nephrostomy Urine Culture - Preliminary Yeast 02/23/21 08:00 Urine, Nephrostomy Urine Culture - Preliminary Yeast 02/23/21 06:25 Interface Orders SARS-CoV-2 Antigen (Rapid) - Final Radiography Diagnostic Testing: Radiology Impression Echocardiogram 02/23/21 09:06 Interpretation Summary The estimated ejection fraction is EF 55-60% %. Limited 2 D echo study Ordering Physician: Radames Duke Referring Physician: PRINCE CHAVIRA Performed By: Joie España, CLAUDIA, RVT Physical Exam Const alert Eyes PERRL Eyes Narrative: now able to look left Resp normal respiratory effort and clear to auscultation bilaterally Cardio regular rate, regular rhythm, S1 normal heart sound and S2 normal heart sound GI normal to inspection, nondistended, normoactive bowel sounds GI Narrative: distended, high-pitched bowel sounds. Extremity normal to inspection Extremity Narrative: 3+ edema Skin no rashes or lesions noted Neuro Neuro Narrative: weakness on left Psych Psych Narrative: flat affect Assessment & Plan Assessment/Plan (1) CVA (cerebral vascular accident): QUALIFIERS: CVA mechanism: unspecified Qualified Code(s): I63.9 - Cerebral infarction, unspecified (2) MERLE (acute kidney injury): (3) Abdominal pain: QUALIFIERS: Abdominal location: generalized Qualified Code(s): R10.84 - Generalized abdominal pain PLAN: 1. Acute CVA, embolic * DW neurology who feels pt has emolic phenomenon to left cerebellar, right frontal and left frontal. Clot embolism v cancer v infectious * not candidate for TPA given unknown time of onset * PT OT ST * clinically improved today * ASA for now 2. MERLE * oliguric * worse again * gentle hydration * consult nephrology * consider renal US 3. 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 ileus * ongoing * continue NPO 5. bladder cancer * follow up with oncology for further staging * poor px 6. VTE prophylaxis:heparin 7. ACP: DW pt, DNRCCA, DNI from previous. I spent an additional 16 minutes discussing poor prognosis, hospice. He agrees to meet with hospice. Updated patient's daughter. Visit Charges Inpatient E&M: 02478 Subs Hosp L3 Procedures Hospitalists Procedures: 08997 Advncd Care Plan 30 Min
[2021-02-24] MEDS: Acetaminophen 650 MG/20 ML UDC NG (16:18)
[2021-02-24] MEDS: Ondansetron 4 MG/2 ML Vial IV (20:19)
[2021-02-24] MEDS: Menthol/Lanolin/Calamine/Znox 113 GM Tube 1 APPLIC TOPICAL (20:20)
[2021-02-25] VITALS (7 sets, daily range): BP systolic 121–125; BP diastolic 63–95; PULSE 51–100; RESP 16–18; TEMP 36.3–36.7; O2SAT 92–95
[2021-02-25] MEDS: Potassium Chloride 40 MEQ in 0.9% Normal Saline 1,000 ML 100 MEQ IV ×2 (04:02→14:55)
--- NOTE | 2021-02-25 09:04 | CASEMGMT ---
Addendum entered by Amanda Reyes 02/25/21 09:36: SW called patient's . Introduced self and role at [facility]. SW confirmed the plan is for patient to go to a [facility] facility [facility]. SW explained that insurance will pay for the Hospice services, but they will be responsible for the room and board at the longterm. SW told her the cost will vary depending on which facility he goes to. SW told her it is usually around $200 some dollars. She said they would like [facility]. SW told her SW will send the referral and will let her know what they say. SW told her to think of other options for facilities in case [facility] cannot take patient. SW called [facility] with referral and also faxed information. Await their response. Amanda HAMILTON Original Note: ANIL called [facility] Hosp[facility]. She said family is aware going to SNF [facility] will be private pay. She said this was relayed to family. She asked that SW update her on where patient goes and when he goes. SW to talk with patient's . Amanda HAMILTON
[2021-02-25] MEDS: Ondansetron 4 MG/2 ML Vial IV (09:05)
[2021-02-25] MEDS: Linezolid 600 MG 600 MG/300 ML BAG 200 MG IV (11:22)
[2021-02-25] MEDS: Menthol/Lanolin/Calamine/Znox 113 GM Tube 1 APPLIC TOPICAL (12:11)
[2021-02-25] MEDS: Metoclopramide 10 MG/2 ML Vial 5 MG IV (12:26)
--- NOTE | 2021-02-25 13:28 | CASEMGMT ---
ANIL has not heard back from [facility] yet. ANIL called Consuelo in admissions and left her a voice mail requesting a return call. Amanda Reyes MSW ALFON[place]
[2021-02-25 13:32] LABS: Pathologist Review Reviewed
[2021-02-25 13:32] LABS: Pathologist Review Reviewed
--- NOTE | 2021-02-25 15:05 | TREXTCAR_ITS ---
Diet 02/24/21 15:34 Diet: Clear Liquid Dietary Modifications:: Sodium Restricted Type of Dietary Supplement:: Glucerna Shake Is pt able to select menu?: No Diet Comments: 120ml glucerna shake TID w/ meals Problem/Diagnosis (1) CVA (cerebral vascular accident): Status: Acute (2) MERLE (acute kidney injury): Status: Acute (3) Abdominal pain: Status: Acute Allergies/Procedures Done in Hospital Allergies atenolol Adverse Reaction (Verified 02/14/21 19:01) hypotension HYPOTENSION tamsulosin [From Flomax] Adverse Reaction (Verified 02/14/21 19:01) PT UNSURE OF REACTION passed out Type of Care/Length of Stay Estimated LOS: Convalescent Care Less Than 30 days Type of Care Needed: Skilled Rehab Potential: Poor Prognosis: Poor Additional Orders/Day of Discharge Day of Discharge: 02/25/21 Dietary and Speech Recommendations Dietitian Recommendations/Changes: Continue cardiac diet. Restrict carbohydrates in diet as indicated once intake established at meals. 120ml glucerna shake TID w/ meals. Discharge Plan Admission Admit Date/Time: 02/23/21 07:00 Primary Reason for Your Visit: Vertigo Attending Provider: Christoph Almaguer Primary Care Provider: Kim Torres Consulting Providers: Sunshine Holliday ; Christoph Mendez ; Yasmin Boykin ; Haylee Torres ; Radha Schultz ; Jenn Winkler DATABASE COORDINATOR ; Marian Bhatia Discharge Orders/Prescriptions Prescriptions: Continued simvastatin 10 MG tablet 10 mg PO QHS RF: 0 aspirin 81 MG tablet,chewable 81 mg PO DAILY@0800 RF: 0 multivitamin 1 EACH tablet 1 ea PO DAILY RF: 0 vit C,G-Dw-zufrp-lutein-zeaxan 1 EACH capsule 1 ea PO BID RF: 0 lorazepam 0.5 MG tablet 0.5 mg PO DAILY PRN PRN (Reason: Anxiety) RF: 0 ondansetron 8 MG tablet,disintegrating 8 mg PO Q6H PRN (Reason: Nausea) RF: 0 metoprolol tartrate 25 MG tablet 25 mg PO BID RF: 0 acetaminophen 500 MG tablet 1,000 mg PO Q6H PRN PRN (Reason: Pain Score 1-10) RF: 0 Eucerin Intensive Repair Lotion 1 ea TOPICAL QHS RF: 0 linezolid [Zyvox] 600 mg tablet 600 mg PO BID RF: 0 simethicone [Gas Relief (simethicone)] 80 MG tablet,chewable 80 mg PO TIDPC PRN (Reason: bettie abd.) RF: 0 Referrals / Follow Up: Kim Torres MD [Primary Care Provider] - Disposition Disposition (needs filled in before D/C Order can be placed): Hospice in Medical Facility
--- NOTE | 2021-02-25 15:18 | DS.PCM_ITS ---
Providers Date of Admission: 02/23/21 Primary Care Physician: Dr. Kim Torres MD Consultations 02/23/21 09:41 Consult: Nephrology Routine Consulting Provider: Marian Bhatia Reason for Consult: MERLE EMERGENT Consult: No Notified: Yes Date Notified:: 02/23/21 Time Notified: 09:41 Method of Notification: Answering Service 02/24/21 08:52 Consult: Hospice / Palliative Care Routine Consulting Provider: [facility] Reason for Consult: MERLE, cancer, CVA EMERGENT Consult: No Notified: Yes Date Notified:: 02/24/21 Time Notified: 09:22 Method of Notification: Verbal Reason For Visit: VERTIGO Diagnosis Discharge Diagnosis (1) CVA (cerebral vascular accident): Status: Acute Code(s): I63.9 - Cerebral infarction, unspecified Qualifiers: CVA mechanism: unspecified Qualified Code(s): I63.9 - Cerebral infarction, unspecified (2) MERLE (acute kidney injury): Status: Acute Code(s): N17.9 - Acute kidney failure, unspecified (3) Abdominal pain: Status: Acute Code(s): R10.9 - Unspecified abdominal pain Qualifiers: Abdominal location: generalized Qualified Code(s): R10.84 - Generalized abdominal pain Medications at Discharge Home Medications simvastatin 10 mg PO QHS 05/01/16 aspirin 81 mg PO DAILY@0800 05/01/19 multivitamin 1 ea PO DAILY 12/11/19 vit C,B-Lx-fdaql-lutein-zeaxan 1 ea PO BID 12/11/19 lorazepam 0.5 mg PO DAILY PRN PRN 11/30/20 ondansetron 8 mg PO Q6H PRN 11/30/20 metoprolol tartrate 25 mg PO BID 12/10/20 acetaminophen 1,000 mg PO Q6H PRN PRN tablet 01/02/21 Eucerin Intensive Repair 1 ea TOPICAL QHS 02/14/21 linezolid [Zyvox] 600 mg PO BID 02/23/21 simethicone [Gas Relief (simethicone)] 80 mg PO TIDPC PRN 02/23/21 Hospital Course Summary of Care Provided Minutes Spent on Discharge: 35 Hospital Course: See subjective for patient presentation. Patient will be discharged to [facility] for hospice care. 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 Unclear etiology as could be the result of clot embolism, cancer or infectious source. No displayed focal neuro deficits on my exam. Plan; aspirin continued. 2) MERLE Creatinine currently 5.27. Nephrology consulted. Likely the result of CKD progression. 3) UTI Continue linezolid 4) bladder cancer Follow-up with oncology as an outpatient. 5) Ileus Ongoing. Follow-up with your primary care provider within the next 1 to 2 weeks. Patient seen by Len Anglin PA-C, under the supervision of Dr. Almaguer. Physical Exam Narrative Patient is an 80-year-old male lying in bed, alert and oriented x3. Patient reports to feeling unwell as he is nauseous and vomiting, and is not responding to Zofran. Denies chest pain, shortness of breath, sputum production, palpitations, fever, chills or diarrhea. Const alert and oriented x3 Orientation / Consciousness: lethargic Nutritional Appearance: obese HEENT normocephalic, head/scalp atraumatic and hearing grossly normal bilaterally Eyes PERRL, EOMs intact bilaterally and conjunctivae normal Neck no lymphadenopathy, supple and no JVD Resp Effort and Inspection: abnormal respiratory pattern and labored Auscultation: diminished lung sounds Cardio regular rate, regular rhythm, no murmurs and no JVD GI non-tender Inspection: localized swelling Extremity normal to inspection, full ROM and no clubbing, cyanosis or edema Skin no rashes or lesions noted, no wounds and skin turgor normal Neuro CN's II-XII intact bilaterally and no focal motor deficits Psych Mood & Affect: depressed and anxious ABG / Lab / Microbiology Data Result Diagrams: 02/24/21 04:34 02/24/21 12:02 Laboratory: Laboratory Results - last 24 hr 02/23/21 02/24/21 04:20 04:34 Diff Path Review Reviewed Reviewed Microbiology: Microbiology 02/23/21 08:00 Urine Culture - Final Urine, Nephrostomy Yeast, not Fabi albicans 02/23/21 08:00 Urine Culture - Final Urine, Nephrostomy Yeast, not Fabi albicans Microbiology 02/23/21 08:00 Urine, Nephrostomy Urine Culture - Final Yeast, not Fabi albicans 02/23/21 08:00 Urine, Nephrostomy Urine Culture - Final Yeast, not Fabi albicans 02/23/21 06:25 Interface Orders SARS-CoV-2 Antigen (Rapid) - Final Meaningful Use Info Meaningful Use Diagnoses (Choose all that apply): Ischemic CVA CVA Therapy Assessed for PT,OT and/or ST?: Yes Ischemic Stroke Antithrombotic order at d/c?: Yes Dx of Atrial fib/flutter?: No Statins at discharge?: No Reason Statin not ordered: Hospice Primary Dx Acute Ischemic CVA?: Yes IV tPA ordered during stay?: No Reason IV t-PA not ordered: Treatment not Indicated Discharge Plan Admission Admit Date/Time: 02/23/21 07:00 Primary Reason for Your Visit: Vertigo Attending Provider: Christoph Almaguer Primary Care Provider: Kim Torres Consulting Providers: Sunshine Holliday ; Christoph Mendez ; Yasmin Boykin ; Haylee Torres ; Radha Schultz ; Jenn Winkler ELECTROMEDICAL SERVICE ENGINEER ; Marian Bhatia Discharge Orders/Prescriptions Prescriptions: Continued simvastatin 10 MG tablet 10 mg PO QHS RF: 0 aspirin 81 MG tablet,chewable 81 mg PO DAILY@0800 RF: 0 multivitamin 1 EACH tablet 1 ea PO DAILY RF: 0 vit C,Z-Oc-abknx-lutein-zeaxan 1 EACH capsule 1 ea PO BID RF: 0 lorazepam 0.5 MG tablet 0.5 mg PO DAILY PRN PRN (Reason: Anxiety) RF: 0 ondansetron 8 MG tablet,disintegrating 8 mg PO Q6H PRN (Reason: Nausea) RF: 0 metoprolol tartrate 25 MG tablet 25 mg PO BID RF: 0 acetaminophen 500 MG tablet 1,000 mg PO Q6H PRN PRN (Reason: Pain Score 1-10) RF: 0 Eucerin Intensive Repair Lotion 1 ea TOPICAL QHS RF: 0 linezolid [Zyvox] 600 mg tablet 600 mg PO BID RF: 0 simethicone [Gas Relief (simethicone)] 80 MG tablet,chewable 80 mg PO TIDPC PRN (Reason: bettie abd.) RF: 0 Referrals / Follow Up: Kim Torres MD [Primary Care Provider] - Disposition Disposition (needs filled in before D/C Order can be placed): Hospice in Medical Facility
--- NOTE | 2021-02-25 15:21 | CASEMGMT ---
Addendum entered by Amanda Reyes 02/25/21 15:46: ANIL spoke with Consuelo at [facility] and they prefer pickle sorter of 6p. ANIL adjusted transport request on [facility] website. They are able to accommodate this pickle sorter time. ANIL called Libertad at Hospice and let her know patient is being discharged today and he will be picked up at 6p. She will let her code enforcement supervisor know. ANIL faxed d/c orders to [facility] and Hospice. ANIL will notify RN who will notify patient's when she arrives. Amanda HAMILTON Original Note: ANIL received a voice mail from Consuelo at [facility] and they can accept patient. ANIL called patient's and let her know that it would be a semi-private room and their daily rate is $197 per day. She said that is fine. She asked if Medicare pays for any of that 197 and ANIL told her no it does not. ANIL explained insurance will pay for the Hospice services only. They will be in to see him today at 4p. ANIL notified SYLVIA Harrington so he will complete paperwork. ANIL requested 5p pickle sorter from [facility]. Waiting to see if they can accommodate this time. ANIL will then notify Hospice. RN was notified as well as pathology secretary/transcriptionist. Plan: d/c to [facility] under [facility]. Amanda HAMILTON
--- NOTE | 2021-02-25 15:53 | PHA.DC.MR ---
Pharmacy Service has performed discharge medication reconciliation for this patient. The patient's discharge medication list was reviewed for discrepancies and discrepancies were resolved. Home Medications simvastatin 10 mg PO QHS 05/01/16 aspirin 81 mg PO DAILY@0800 05/01/19 multivitamin 1 ea PO DAILY 12/11/19 vit C,V-Yd-ofevj-lutein-zeaxan 1 ea PO BID 12/11/19 lorazepam 0.5 mg PO DAILY PRN PRN 11/30/20 ondansetron 8 mg PO Q6H PRN 11/30/20 metoprolol tartrate 25 mg PO BID 12/10/20 acetaminophen 1,000 mg PO Q6H PRN PRN tablet 01/02/21 Eucerin Intensive Repair 1 ea TOPICAL QHS 02/14/21 linezolid [Zyvox] 600 mg PO BID 02/23/21 simethicone [Gas Relief (simethicone)] 80 mg PO TIDPC PRN 02/23/21
--- NOTE | 2021-02-25 18:13 | NURSING ---
Called report to [facility] LIAM Patel at 1800.
== END 2021-02-25 18:21 | disposition hospice, inpatient (51) | DRG 65 ==
LOC: ED 06:23 → PCU 07:29
PROVIDERS: Admitting Provider Hospitalist; Emergency Provider Emergency Medicine; PCP Internal Medicine; Visit Provider Internal Medicine
DX: I63.9 Cerebral infarction, unspecified (principal); G81.94 Hemiplegia, unspecified affecting left nondominant side; N17.9 Acute kidney failure, unspecified; N39.0 Urinary tract infection, site not specified; N13.8 Other obstructive and reflux uropathy; K56.0 Paralytic ileus; N18.4 Chronic kidney disease, stage 4 (severe); E87.2 Acidosis; C78.00 Secondary malignant neoplasm of unspecified lung; C79.89 Secondary malignant neoplasm of other specified sites; R29.707 NIHSS score 7; R47.81 Slurred speech; N40.1 Benign prostatic hyperplasia with lower urinary tract symptoms; C67.9 Malignant neoplasm of bladder, unspecified; E78.00 Pure hypercholesterolemia, unspecified; I12.9 Hypertensive chronic kidney disease with stage 1 through stage 4 chronic kidney disease, or unspecified chronic kidney disease; D63.1 Anemia in chronic kidney disease; E87.70 Fluid overload, unspecified; E66.9 Obesity, unspecified; Z68.35 Body mass index [BMI] 35.0-35.9, adult; Z66 Do not resuscitate; I25.2 Old myocardial infarction; Z90.6 Acquired absence of other parts of urinary tract; Z93.6 Other artificial openings of urinary tract status; Z79.82 Long term (current) use of aspirin; Z79.899 Other long term (current) drug therapy; Z87.442 Personal history of urinary calculi; Z87.891 Personal history of nicotine dependence
CPT/HCPCS: 36415; 70450; 70544; 70547; 70551; 71045; 74022; 80048; 80061; 81001; 83605; 83735; 84484; 85025; 87040; 87086; 87088; 87426; 92610; 93005; 93306; 97802; 99285; J2020; J7030; J7050; A4216; J2405